=== PATIENT | female | born 1960 | race Caucasian/White ===

== ENCOUNTER 2022-04-13 13:00 | Outpatient (RCR) | payer MEDICARE, OTHER, SELFPAY | END 2022-04-13 13:05 | disposition home or self-care (01) | LOC: PT 13:00 | PROVIDERS: Visit Provider Family Medicine | DX: I89.0 Lymphedema, not elsewhere classified (principal) | CPT/HCPCS: 97110; 97140; 97162; 97164; 97760 ==

== ENCOUNTER → 2022-05-23 13:57 | Outpatient (POV) | payer MEDICARE, OTHER, SELFPAY ==
[2022-05-23 14:39] VITALS: BP 139/62; PULSE 77; RESP 18; TEMP 37.1; O2SAT 97; BMI 31.0
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
== END ==
PROVIDERS: PCP Family Medicine; Visit Provider Nurse Practitioner Family
DX: M25.511 Pain in right shoulder (principal); M25.562 Pain in left knee; G89.29 Other chronic pain
CPT/HCPCS: 99202; G0463

== ENCOUNTER → 2022-05-30 15:00 | Outpatient (POV) | payer MEDICARE, OTHER, SELFPAY ==
[2022-05-30 15:21] VITALS: BP 131/65; PULSE 90; RESP 20; TEMP 36.8; O2SAT 96; BMI 30.1
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
== END | disposition home or self-care (01) ==
PROVIDERS: PCP Family Medicine; Visit Provider Nurse Practitioner Family
DX: M25.562 Pain in left knee (principal); M25.511 Pain in right shoulder; G89.29 Other chronic pain
CPT/HCPCS: 99212; G0463

== ENCOUNTER 2022-07-14 14:35 | Outpatient (RCR) | payer MEDICARE, OTHER, SELFPAY | END 2022-07-14 14:40 | disposition home or self-care (01) | LOC: OT 14:35 | PROVIDERS: PCP Family Medicine; Visit Provider Psychiatry & Neurology Neurology | DX: G56.32 Lesion of radial nerve, left upper limb (principal) ==

== ENCOUNTER 2022-11-23 14:00 | Outpatient (RCR) | payer MEDICARE, OTHER, SELFPAY | END 2022-11-23 14:05 | disposition home or self-care (01) | LOC: PT 14:00 | PROVIDERS: Visit Provider Family Medicine | DX: I89.0 Lymphedema, not elsewhere classified (principal) | CPT/HCPCS: 97140; 97162; 97164; 97760 ==

== ENCOUNTER 2022-12-07 15:00 | Outpatient (RCR) | payer MEDICARE, OTHER, SELFPAY | END 2022-12-07 15:05 | disposition home or self-care (01) | LOC: OT 15:00 | PROVIDERS: PCP Family Medicine; Visit Provider Nurse Practitioner | DX: M25.511 Pain in right shoulder (principal) | CPT/HCPCS: 97010; 97014; 97110; 97140; 97164; 97166; 97530; 97535; G0283 ==

== ENCOUNTER 2022-12-13 13:00 | Outpatient (RCR) | payer MEDICARE, OTHER, SELFPAY | END 2022-12-13 13:05 | disposition home or self-care (01) | LOC: PT 13:00 | PROVIDERS: PCP Family Medicine | DX: S82.142S Displaced bicondylar fracture of left tibia, sequela (principal) | CPT/HCPCS: 97110; 97116; 97163; 97164; 97530 ==

== ENCOUNTER 2023-04-26 10:00 | Outpatient (RCR) | payer MEDICARE, OTHER, SELFPAY | END 2023-04-26 10:05 | disposition home or self-care (01) | LOC: PT 10:00 | PROVIDERS: PCP Family Medicine; Visit Provider Orthopaedic Surgery Orthopaedic Trauma | DX: M25.572 Pain in left ankle and joints of left foot (principal) | CPT/HCPCS: 97010; 97014; 97110; 97116; 97163; 97164; 97530; G0283 ==

== ENCOUNTER 2023-04-26 11:00 | Outpatient (RCR) | payer MEDICARE, OTHER, SELFPAY | END 2023-04-26 12:00 | disposition home or self-care (01) | LOC: PT 11:00 | PROVIDERS: PCP Family Medicine; Visit Provider Family Medicine | DX: R60.0 Localized edema (principal); S89.202A Unspecified physeal fracture of upper end of left fibula, initial encounter for closed fracture; S82.142A Displaced bicondylar fracture of left tibia, initial encounter for closed fracture | CPT/HCPCS: 97140; 97163; 97164; 97760 ==

== ENCOUNTER 2023-09-24 15:42 | Observation (INO) | payer MEDICARE, OTHER, SELFPAY ==
[2023-09-24 15:45] VITALS: BP 138/67; PULSE 103; RESP 20; TEMP 37.1; O2SAT 99; BMI 31.8
--- NOTE | 2023-09-24 16:03 | PC.NURSE ---
Dr. Cornejo at [facility] for pt eval
--- NOTE | 2023-09-24 16:18 | CT_ITS ---
PROCEDURE INFORMATION: Exam: CT Pelvis Without Contrast; Skeletal Exam date and time: 09/24/2023 5:55 PM Age: 62 years old Clinical indication: Injury or trauma; Fall; Blunt trauma (contusions or hematomas); Left; Hip; Additional info: L hip pain TECHNIQUE: Imaging protocol: Computed tomography of the pelvis without contrast. Exam focused on the skeleton. Radiation optimization: All CT scans at this facility use at least one of these dose optimization techniques: automated exposure control; mA and/or kV adjustment per patient size (includes targeted exams where dose is matched to clinical indication); or iterative reconstruction. COMPARISON: CR XR HIP LT 2-3V W/PELVIS 09/24/2023 5:06 PM FINDINGS: Bones/joints: Possible nondisplaced avulsion fracture of the lateral margin of the posterior left acetabulum centered on axial image 64 series 3. No other acute pelvic fracture identified. Severe soft tissue edema of the partially included upper thighs werj-mcdemgw-cfdv-right in the body wall structures of the pelvis compatible with anasarca. Soft tissues: See Bones/joints finding. IMPRESSION: 1. Avulsion fracture posterior left acetabulum of uncertain age. 2. Anasarca.
--- NOTE | 2023-09-24 16:18 | CT_ITS ---
PROCEDURE INFORMATION: Exam: CTA Abdomen and Pelvis With Contrast Exam date and time: 09/24/2023 5:59 PM Age: 62 years old Clinical indication: Injury or trauma; Fall; Blunt trauma; Pelvic area; Left; Additional info: Fall, L flank, L hip, periumbilical bruise TECHNIQUE: Imaging protocol: Computed tomographic angiography of the abdomen and pelvis with contrast. Exam focused on the arteries. 3D rendering (Not supervised by radiologist): MIP and/or 3D reconstructed images were created by the technologist. Radiation optimization: All CT scans at this facility use at least one of these dose optimization techniques: automated exposure control; mA and/or kV adjustment per patient size (includes targeted exams where dose is matched to clinical indication); or iterative reconstruction. Contrast material: ISOVUE; Contrast volume: 100 ml; Contrast route: INTRAVENOUS (IV); COMPARISON: CT BONY PELVIS 09/24/2023 5:55 PM FINDINGS: Diaphragm: Elevation of the right hemidiaphragm noted. Associated compressive atelectasis of the posterior right lower lobe in the right middle lobe. Lung henry otherwise clear. Aorta: Emrx-cb-zstvgqyn atherosclerotic changes of the aorta without aneurysm or significant narrowing. Celiac trunk and mesenteric arteries: No occlusion or significant stenosis. Renal arteries: Potential xwkvziex-aw-adqyeo atherosclerotic narrowing of the origin of the right renal artery. No occlusion or significant stenosis of the left renal artery. Right iliac arteries: No occlusion or significant stenosis. Left iliac arteries: No occlusion or significant stenosis. Veins: Recanalized umbilical vein. Mild upper abdomen varices. Liver: Nodular contour of the liver suggesting cirrhosis. Liver otherwise unremarkable. Gallbladder and bile ducts: Small stones in the gallbladder. Gallbladder and bile ducts are otherwise unremarkable Pancreas: Calcifications noted in the posterior aspect of the pancreatic head suggesting chronic pancreatitis. Spleen: Splenomegaly measuring 16 cm. Spleen otherwise unremarkable. Adrenal glands: Unremarkable. No mass. Kidneys and ureters: Nonobstructing 7 mm stone inferior right kidney and 3 mm nonobstructing mid left kidney stone. Kidneys and ureters otherwise unremarkable with no obstructing stones or uropathy. Stomach and bowel: Diffuse moderate to moderately severe colonic wall thickening extending from the cecum through the distal sigmoid. Mildly dilated air and fluid distended upper abdomen proximal small bowel loops measuring up to 3.8 cm in caliber. GI tract structures otherwise unremarkable with no evident wall thickening allowing for incomplete distention. A moderate size umbilical region hernia measuring 6 cm that contains free fluid and a nondilated loop of small bowel without obstruction. Appendix: No evidence of appendicitis. Intraperitoneal space: Moderate amounts of low-density free fluid in the abdomen and pelvis. Lymph nodes: Unremarkable. No enlarged lymph nodes. Urinary bladder: Unremarkable. No mass. Reproductive: Unremarkable as visualized. Bones/joints: Old-appearing mild superior endplate compression fracture L2 and pvji-xt-kdozcqgy central superior endplate compression fracture of L3. Vertebral body heights are otherwise intact. Levoscoliosis of the thoracolumbar spine and dextroscoliosis of the lumbar spine. Possible essentially nondisplaced fracture of the tip of the right L3 transverse process. Nondisplaced avulsion fracture of the lateral aspect of the posterior left acetabulum. No other acute fracture identified. Soft tissues: Diffuse severe body wall edema and associated moderate intra-abdominal fat tissue edema compatible with anasarca. IMPRESSION: 1. Avulsion fracture posterior left acetabulum. Possible nondisplaced fracture of the right L3 transverse process. 2. Cirrhosis. Associated recanalized umbilical vein and upper abdomen varices and splenomegaly compatible with portal venous hypertension. 3. Severe anasarca changes. 4. Moderate free fluid. 5. Diffuse colonic wall thickening noted that may be due to portal colopathy but can not exclude colitis in the proper clinical setting. 6. Associated mildly dilated proximal small bowel loops may be due to ileus. 7. Moderate size umbilical hernia containing a loop of small bowel and ascites. 8. Additional nonemergent findings as above.
--- NOTE | 2023-09-24 16:18 | XR_ITS ---
PROCEDURE INFORMATION: Exam: XR Left Hip Exam date and time: 09/24/2023 5:06 PM Age: 62 years old Clinical indication: Injury or trauma; Fall; Blunt trauma (contusions or hematomas); Left; Hip TECHNIQUE: Imaging protocol: Radiologic exam of the left hip. Views: 2 or 3 views hip with pelvis when performed. COMPARISON: CR XR FEMUR LT 2V 09/24/2023 5:06 PM FINDINGS: Bones/joints: Unremarkable. No acute fracture. Soft tissues: Unremarkable. IMPRESSION: No acute findings.
--- NOTE | 2023-09-24 16:18 | XR_ITS ---
PROCEDURE INFORMATION: Exam: XR Left Femur Exam date and time: 09/24/2023 5:06 PM Age: 62 years old Clinical indication: Injury or trauma; Fall; Blunt trauma; Thigh or upper leg; Left TECHNIQUE: Imaging protocol: Radiologic exam of the left femur. Views: 2 views. COMPARISON: CR XR HIP LT 2-3V W/PELVIS 09/24/2023 5:06 PM FINDINGS: Bones/joints: Unremarkable. No acute fracture. Soft tissues: Unremarkable. IMPRESSION: No acute findings.
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
[2023-09-24] MEDS: ACETAMINOPHEN 1,000MG/100ML VIAL 1000 MG IV (16:44)
[2023-09-24] MEDS: OXYCODONE 5MG IMMEDIATE RELEASE TABLET 5 MG PO (16:44)
[2023-09-24] MEDS: NYSTATIN TOPICAL POWDER 30GM TP (16:45)
[2023-09-24 16:48] LABS: Coronavirus 19, PCR Not Detected (NotDetected); Influenza A, PCR Not Detected (NotDetected); Influenza B, PCR Not Detected (NotDetected)
[2023-09-24 16:50] LABS: Basophils # 0.1 K/mm3 (0-0.2); Basophils % 0.5 % (0.1-2.0); Eosinophils # 0.2 K/mm3 (0.0-0.4); Eosinophils % 2.4 % (0.1-12.0); Hematocrit 37.2 % (37.0-47.0); Hemoglobin 12.4 g/dL (12.2-16.2); Lymphocytes # 1.6 K/mm3 (0.7-4.5); Lymphocytes % 16.8 % (10-50); Mean Corpuscular HGB Conc 33.3 g/dL (31.8-35.4); Mean Corpuscular Hemoglobin 34.4 pg (27.0-31.2); Mean Corpuscular Volume 103.2 fl (81-99); Monocytes # 0.4 K/mm3 (0.1-1.0); Neutrophils # 7.2 K/mm3 (1.8-7.8); Neutrophils % 76.2 % (37.0-80.0); Platelet Count 151 K/mm3 (142-424); Red Blood Count 3.61 M/mm3 (4.20-5.40); Red Cell Distribution Width 16.7 % (11.5-17.5); White Blood Count 9.5 K/mm3 (4.8-10.8)
[2023-09-24 16:53] LABS: Chloride 106 mmol/L (98-107); Sodium 137 mmol/L (136-145)
[2023-09-24 16:54] LABS: Potassium 3.4 mmoL/L (3.5-5.1)
[2023-09-24 16:56] LABS: Alanine Aminotransferase 59 U/L (12-78); Alkaline Phosphatase 235 U/L (38-126); Aspartate Amino Transferase 98 U/L (14-36); Bilirubin,Total 2.8 mg/dl (0.2-1.3); Blood Urea Nitrogen 5 mg/dl (7-17); Creatinine Clearance Estimated 74 mL/min (50-200); Estimated Glomerular Filt Rate 125 ml/min (>60); GFR (African American) 151 ML/MIN (>60)
[2023-09-24 16:57] LABS: Albumin Level 3.2 g/dl (3.5-5.0); Albumin/Globulin Ratio 1.1 (1.1-1.8); Anion Gap 5.4 mEq/L (5-15); Calcium 7.8 mg/dl (8.4-10.2); Carbon Dioxide 29 mmol/L (22.0-30.0); Glucose 122 mg/dl (74-100); Total Protein,Serum 6.2 g/dl (6.3-8.2)
[2023-09-24 17:09] VITALS: BP 138/67; PULSE 103; O2SAT 99
--- NOTE | 2023-09-24 17:11 | PC.NURSE ---
RAD is at bedside.
[2023-09-24] MEDS: 0.9 % SODIUM CHLORIDE 50 ML VIAL IV (17:55)
[2023-09-24] MEDS: IOPAMIDOL-370 (76%);100ML BOTTLE 100 ML IV (17:56)
[2023-09-24 18:30] VITALS: BP 140/71; PULSE 106; O2SAT 96
--- NOTE | 2023-09-24 19:16 | PC.NURSE ---
ED doctor spoke with Dr. Richardson
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
[2023-09-24 19:56] VITALS: BP 139/77; PULSE 105; RESP 16; TEMP 36.6; O2SAT 96
[2023-09-24 20:30] VITALS: BP 129/71; PULSE 107; RESP 18; TEMP 36.8; O2SAT 95; BMI 39.7
[2023-09-25] MEDS: ROPINIROLE 1MG TABLET 0.5 MG PO ×3 (00:06→13:48)
[2023-09-25] MEDS: ENOXAPARIN 40MG/0.4ML SYRINGE 40 MG SQ (00:07)
[2023-09-25] MEDS: MORPHINE 2MG/ML SYRINGE 2 MG IV ×2 (00:07→08:26)
[2023-09-25] MEDS: NYSTATIN TOPICAL POWDER 30GM TP ×3 (00:08→13:48)
[2023-09-25] MEDS: 0.9 % SODIUM CHLORIDE 1000ML 1,000 ML 50 ML IV (00:08)
[2023-09-25 04:00] VITALS: BP 115/63; PULSE 81; RESP 18; TEMP 36.9; O2SAT 95; BMI 40.2
[2023-09-25] MEDS: CYCLOBENZAPRINE 10MG TABLET 10 MG PO (05:14)
[2023-09-25 07:22] LABS: Basophils % 0.3 % (0.1-2.0); Eosinophils # 0.2 K/mm3 (0.0-0.4); Eosinophils % 3.8 % (0.1-12.0); Hematocrit 31.5 % (37.0-47.0); Lymphocytes # 1.6 K/mm3 (0.7-4.5); Lymphocytes % 24.5 % (10-50); Mean Corpuscular HGB Conc 32.6 g/dL (31.8-35.4); Mean Corpuscular Hemoglobin 34.1 pg (27.0-31.2); Mean Corpuscular Volume 104.4 fl (81-99); Mean Platelet Volume 8.4 fl (7.4-10.4); Monocytes # 0.4 K/mm3 (0.1-1.0); Monocytes % 5.9 % (1.7-9.3); Neutrophils # 4.2 K/mm3 (1.8-7.8); Neutrophils % 65.5 % (37.0-80.0); Platelet Count 129 K/mm3 (142-424); Red Blood Count 3.02 M/mm3 (4.20-5.40); Red Cell Distribution Width 17.1 % (11.5-17.5); White Blood Count 6.5 K/mm3 (4.8-10.8)
--- NOTE | 2023-09-25 07:34 | PC.NURSE ---
unna boots applied to left leg. pt shira well
[2023-09-25 07:38] LABS: Alanine Aminotransferase 44 U/L (12-78); Albumin Level 2.4 g/dl (3.5-5.0); Albumin/Globulin Ratio 0.9 (1.1-1.8); Alkaline Phosphatase 172 U/L (38-126); Anion Gap 4.4 mEq/L (5-15); Aspartate Amino Transferase 76 U/L (14-36); Bilirubin,Total 2.1 mg/dl (0.2-1.3); Blood Urea Nitrogen 5 mg/dl (7-17); Carbon Dioxide 28 mmol/L (22.0-30.0); Chloride 108 mmol/L (98-107); Creatinine Clearance Estimated 46 mL/min (50-200); Estimated Glomerular Filt Rate 125 ml/min (>60); GFR (African American) 151 ML/MIN (>60); Globulin 2.6 g/dL (1.3-3.2); Glucose 90 mg/dl (74-100); Magnesium 1.7 mg/dl (1.6-2.3); Potassium 3.4 mmoL/L (3.5-5.1); Sodium 137 mmol/L (136-145)
[2023-09-25 08:00] VITALS: BP 131/67; PULSE 100; RESP 20; TEMP 36.4; O2SAT 92
[2023-09-25 08:06] LABS: Hemoglobin 10.3 g/dL (12.2-16.2)
--- NOTE | 2023-09-25 08:14 | HMH.PHAINT1 ---
Pharmacy Intervention Comments: Home med list verified with patient at bedside, Rx bottles in room, and external pharmacy list.
[2023-09-25] MEDS: POTASSIUM CHLORIDE 20MEQ TAB 20 MEQ PO (08:24)
[2023-09-25] MEDS: PANTOPRAZOLE 40MG TABLET 40 MG PO (08:24)
[2023-09-25] MEDS: FERROUS SULFATE 325MG TABLET 325 MG PO (08:25)
[2023-09-25] MEDS: LACTOBACILLUS PROBIOTIC COMB CAPSULE 1 CAP PO (08:25)
[2023-09-25] MEDS: SPIRONOLACTONE 25MG TABLET 25 MG PO (08:25)
[2023-09-25] MEDS: VENLAFAXINE XR 75MG CAPSULE 75 MG PO (08:25)
[2023-09-25] MEDS: MAGNESIUM SULFATE IN WATER 2 GM/50 ML PIGGYBACK IV (08:26)
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
--- NOTE | 2023-09-25 10:14 | SW/DCPLANNER ---
Addendum entered by Jeny West 09/25/23 11:56: I was called to patient's room at her request to discuss transportation home from hospital today. Patient stated that her family may not be able to pick her up today. I explained to patient that we could call for ambulance transportation however she would be billed for this transportation. I also discussed w/ patient the possible need for home health vs outpatient due to transportation issues. Patient stated that she would speak w/ her family again about transporting her home today. Patient also stated that she would like to continue w/ plan of outpatient PT services. I explained to patient if decides to pursue home health this can be set up from home and I can look into an agency that can do PT/OT/Lymphodema care. I will continue to follow up w/ patient. Per MD patient is medically stable for discharge today. Original Note: I spoke w/ this patient regarding plans once medically stable for discharge. PT/OT evaluated patient and recommended returning home w/ home health OR outpatient PT services. Patient expressed that she would prefer to discharge home and return to [facility] for outpatient PT services. Patient stated that she has a PT evaluation at [facility] scheduled on 09/28. Patient also stated that she has all appropriate DME at home. Per MD patient could potentially discharge home later today or tomorrow.
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
--- NOTE | 2023-09-27 13:23 | CARE MANAGER ---
Called and spoke with patient regarding recent discharge. Patient is thinking that she may want HH services now, but also stated that she thought she would try outpatient PT tomorrow and see how it goes. I advised her that I could transfer her to our social work lecturer, however, she stated that she has her number and will call her if needed.
--- NOTE | 2023-09-28 13:56 | SW/DCPLANNER ---
Addendum entered by Jeny West 09/29/23 13:27: [facility] Home Health services will begin Monday 10/02 for this patient. [facility] stated that they will call and update this patient. Addendum entered by Jeny West 09/29/23 12:55: Meghna w/ [facility] stated that she is not able to accept this patient. Patient information/order has been faxed to [facility]. Original Note: I was called down to outpatient rehab to discuss home health options w/ this patient. Patient stated that it is too difficult for her to continue to return to outpatient PT setting and would prefer to be set up w/ [facility]. Patient information/order will be faxed to [facility]. I will follow up w/ [facility] once information is reviewed.
== END 2023-09-25 14:25 | disposition home or self-care (01) ==
LOC: ER 19:37 → 2ND 19:54
PROVIDERS: Nurse Practitioner Family; Admitting Provider Internal Medicine Adolescent Medicine; Emergency Provider Emergency Medicine; PCP Family Medicine; Visit Provider Internal Medicine Adolescent Medicine
DX: S32.402A Unspecified fracture of left acetabulum, initial encounter for closed fracture (principal); S32.009A Unspecified fracture of unspecified lumbar vertebra, initial encounter for closed fracture; I89.0 Lymphedema, not elsewhere classified; K74.60 Unspecified cirrhosis of liver; R18.8 Other ascites; I10 Essential (primary) hypertension; Z99.3 Dependence on wheelchair; E66.9 Obesity, unspecified; F41.9 Anxiety disorder, unspecified; E03.9 Hypothyroidism, unspecified; Z68.41 Body mass index [BMI] 40.0-44.9, adult; R29.6 Repeated falls
CPT/HCPCS: 36415; 72192; 73502; 73552; 74174; 80053; 83735; 85025; 87636; 97163; 97165; 99285; G0378; J0131; J3475; Q9967

== ENCOUNTER 2023-09-28 11:00 | Outpatient (RCR) | payer MEDICARE, OTHER, SELFPAY | END 2023-09-28 12:00 | disposition home or self-care (01) | LOC: PT 11:00 | PROVIDERS: PCP Family Medicine; Visit Provider Family Medicine | DX: I89.0 Lymphedema, not elsewhere classified (principal) | CPT/HCPCS: 97140; 97163 ==

== ENCOUNTER 2023-09-28 12:49 | Outpatient (RCR) | payer MEDICARE, OTHER, SELFPAY ==
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
== END 2023-09-28 13:49 | disposition home or self-care (01) ==
LOC: PT 12:49
PROVIDERS: PCP Family Medicine; Visit Provider Internal Medicine Adolescent Medicine
DX: M25.552 Pain in left hip (principal); S32.402A Unspecified fracture of left acetabulum, initial encounter for closed fracture
CPT/HCPCS: 97163

== ENCOUNTER 2023-10-05 12:01 | Observation (INO) | payer MEDICARE, OTHER, SELFPAY ==
[2023-10-05 12:02] VITALS: BP 116/59; PULSE 89; RESP 18; TEMP 36.6; O2SAT 97; BMI 35.4
--- NOTE | 2023-10-05 12:40 | CT_ITS ---
FINAL REPORT TECHNIQUE: Axial images were obtained of the lumbar spine by computed tomography. Coronal and sagittal reconstruction process performed. This study was performed with techniques to keep radiation doses as low as reasonably achievable (ALARA). Individualized dose reduction techniques using automated exposure control or adjustment of mA and/or kV according to the patient''s size were employed. CLINICAL HISTORY: fall, back pain COMPARISON: None FINDINGS: There is thoracolumbar scoliosis convex to the left measuring about 40 degrees. There is a 50% compression deformity of L2. There is a 20% compression deformity of L1. There is moderate anterior osteophyte formation at T11-12, T12-L1, and L1-2. On the axial images, there is no evidence of acute fracture. The facets are properly aligned. Neural foraminal compromise is noted bilaterally at L1-2. IMPRESSION: No acute fracture. Degenerative changes as above. Reviewed, Interpreted and Dictated by Kishan Krishnamurthy MD Transcribed by Sofia Butts Authenticated and [facility]
--- NOTE | 2023-10-05 12:40 | CT_ITS ---
FINAL REPORT TECHNIQUE: Axial images were obtained of the thoracic spine by computed tomography. Coronal and sagittal reconstruction process performed. This study was performed with techniques to keep radiation doses as low as reasonably achievable (ALARA). Individualized dose reduction techniques using automated exposure control or adjustment of mA and/or kV according to the patient's size were employed. CLINICAL HISTORY: fall, back pain COMPARISON: None FINDINGS: There is moderate anterior osteophyte formation in the midthoracic spine. There is accentuation of the thoracic kyphosis. Thoracic scoliosis is noted convex to the right measuring about 30 degrees. There is no obvious fracture. Facets are properly aligned. IMPRESSION: No acute fracture. Reviewed, Interpreted and Dictated by Kishan Krishnamurthy MD Transcribed by Sofia Butts Authenticated and [facility]
--- NOTE | 2023-10-05 12:40 | CT_ITS ---
FINAL REPORT TECHNIQUE: Axial images were obtained through the chest without contrast. CLINICAL HISTORY: fall on L side, scap and rib pain COMPARISON: None FINDINGS: There is streak artifact from right shoulder prosthesis. Is noted. There is no mediastinal mass or adenopathy. The heart size is normal. There is no pericardial or pleural effusion. There are mild patchy ground-glass opacities in both lobes and dense consolidations at the right base. IMPRESSION: Consolidation right middle lobe and right lower lobe. Mild patchy ground-glass opacities could be due to acute pneumonitis. Reviewed, Interpreted and Dictated by Kishan Krishnamurthy MD Transcribed by Sofia Butts Authenticated and [facility]
--- NOTE | 2023-10-05 12:40 | CT_ITS ---
FINAL REPORT TECHNIQUE: Axial images through the pelvis were performed by computed tomography. Sagittal and coronal reconstruction images were performed. This study was performed with techniques to keep radiation doses as low as reasonably achievable (ALARA). Individualized dose reduction techniques using automated exposure control or adjustment of mA and/or kV according to the patient's size were employed. CLINICAL HISTORY: fall, history of L hip fx, now with RIGHT hip pain COMPARISON: 09/24/2023 FINDINGS: There is [id number] hip joint space narrowing. Femoral heads have normal smooth contour. There is no evidence of hip fracture. Bowel is noted within midline anterior pelvic wall hernia. IMPRESSION: No acute fracture. Midline anterior pelvic wall hernia containing bowel. Reviewed, Interpreted and Dictated by Kishan Krishnamurthy MD Transcribed by Sofia Butts Authenticated and [facility]
--- NOTE | 2023-10-05 12:42 | CT_ITS ---
FINAL REPORT TECHNIQUE: Axial images were obtained of the cervical spine by computed tomography. Coronal and sagittal reconstruction process performed. This study was performed with techniques to keep radiation doses as low as reasonably achievable (ALARA). Individualized dose reduction techniques using automated exposure control or adjustment of mA and/or kV according to the patient''s size were employed. CLINICAL HISTORY: fall, upper back pain COMPARISON: None FINDINGS: There is grade 1-2 spondylolisthesis of C4 on C5. There is moderate disc space narrowing at C4-5, C5-6, and C6-7. There is no evidence of acute fracture. On parasagittal images, there is moderate bilateral neural foraminal narrowing at C4-5 and C5-6. The facets are properly aligned. IMPRESSION: No acute fracture. Reviewed, Interpreted and Dictated by Kishan Krishnamurthy MD Transcribed by Sofia Butts Authenticated and . [facility]
--- NOTE | 2023-10-05 13:08 | HMH.EDGENADL ---
Discharge Plan Disposition Patient Disposition: Admitted Chief Complaint: PAIN Prescriptions Prescriptions: No Action cyclobenzaprine 10 mg tablet 10 mg PO TID PRN (Reason: Musle spasms) venlafaxine 75 mg capsule,extended release 24hr 75 mg PO AM spironolactone 25 mg tablet 25 mg PO AM ferrous sulfate [FeroSul] 325 mg (65 mg iron) tablet 325 mg PO PM Patient Comments: TAKE 1 TABLET BY MOUTH EVERY DAY AT DINNER esomeprazole magnesium 40 mg capsule,delayed release(DR/EC) 40 mg PO DAILY levothyroxine [Synthroid] 125 mcg Tablet 125 mcg PO DAILY ascorbic acid (vitamin C) 500 mg Tablet 500 mg PO DAILY magnesium 250 mg Tablet 250 mg PO DAILY calcium carbonate-vitamin D3 [Calcium 600 + D(3)] 600 mg-10 mcg (400 unit) Tablet 1 tab PO DAILY cholecalciferol (vitamin D3) [Vitamin D3] 125 mcg (5,000 unit) Tablet 250 mcg PO DAILY nystatin 100,000 unit/gram Powder 1 applic topical QID 10 Days Qty: 30 0RF furosemide 40 mg tablet 40 mg PO DAILY 30 Days Qty: 30 0RF hydrocodone-acetaminophen 5-325 mg tablet 1 tab PO Q6H PRN (Reason: pain) 3 Days Qty: 12 0RF diphenoxylate-atropine 2.5-0.025 mg Tablet 2 tab PO QID PRN (Reason: Diarrhea ) Patient Comments: Pt only taking due to diarrhea caused by Keflex aripiprazole 2 mg Tablet 2 mg PO HS ropinirole 0.5 mg Tablet 0.5 mg PO TID PRN (Reason: Restless Legs) venlafaxine 150 mg Capsule,Extended Release 24hr 150 mg PO HS Referrals Follow up/Referrals: Provider,Referral, MD [Primary Care Provider] - See instructions Clinical Impressions Clinical Impression: Generalized weakness, UTI (urinary tract infection), Acute hypokalemia Discharge ED Provider: Heath Baez General Adult HPI General Chief complaint: PAIN Stated complaint: fall Time Seen by Provider: 10/05/23 12:04 Mode of Arrival: EMS Source of Information: Patient and EMS Limitations: No Limitations Description of Symptoms (Recalled from ER Triage Doc. by RN): Patient states she had a fall yesterday and now has left shoulder pain. Patient reports broken left hip from prior fall that is non surgical. History of Present Illness HPI narrative: 62-year-old female with history of formation causing numerous falls, lymphedema, numerous spinal fractures, recent hip fracture of the acetabulum that was deemed nonsurgical presenting with fall. Patient states that yesterday, 10/04, she was transferring to her wheelchair and fell. She landed on a hardwood floor that has a concrete slab underneath. Had significant pain and crunching sensation in her right hip/buttock posteriorly. No neurovascular deficits. She has associated midline lumbar spinal and thoracic spinal back pain, but has numerous spine fractures from previous falls. Denies hitting her head or loss of consciousness. Related Data Home Medications Medication Instructions Recorded Confirmed aripiprazole 2 mg tablet 2 mg PO HS 05/23/22 09/24/23 diphenoxylate-atropine 2.5 2 tab PO QID PRN Diarrhea 05/23/22 09/24/23 mg-0.025 mg tablet ropinirole 0.5 mg tablet 0.5 mg PO TID PRN Restless Legs 05/23/22 09/25/23 venlafaxine 150 mg 150 mg PO HS 05/23/22 09/25/23 capsule,extended release 24 hr ascorbic acid (vitamin C) 500 mg 500 mg PO DAILY 09/24/23 09/24/23 tablet calcium carbonate 600 mg-vitamin 1 tab PO DAILY 09/24/23 09/25/23 D3 10 mcg (400 unit) tablet (Calcium 600 + D(3)) cholecalciferol (vitamin D3) 125 250 mcg PO DAILY 09/24/23 09/25/23 mcg (5,000 unit) tablet (Vitamin D3) cyclobenzaprine 10 mg tablet 10 mg PO TID PRN Musle spasms 09/24/23 09/24/23 esomeprazole magnesium 40 mg 40 mg PO DAILY 09/24/23 09/24/23 capsule,delayed release ferrous sulfate 325 mg (65 mg 325 mg PO PM 09/24/23 09/25/23 iron) tablet (FeroSul) levothyroxine 125 mcg tablet 125 mcg PO DAILY 09/24/23 09/24/23 (Synthroid) magnesium 250 mg tablet 250 mg PO DAILY 09/24/23 09/24/23 spironolactone 25 mg tablet 25 mg PO AM 09/24/23 09/25/23 venlafaxine 75 mg capsule,extended 75 mg PO AM 09/24/23 09/24/23 release 24 hr Previous Rx's Medication Instructions Recorded furosemide 40 mg tablet 40 mg PO DAILY 30 days #30 tabs 09/25/23 hydrocodone 5 mg-acetaminophen 325 1 tab PO Q6H PRN pain 3 days #12 09/25/23 mg tablet tabs nystatin 100,000 unit/gram topical 1 applic topical QID 10 days #30 09/25/23 powder grams Allergies Allergy/AdvReac Type Severity Reaction Status Date / Time tizanidine Allergy Mild Verified 09/24/23 23:17 [facility] Disclaimer: The information contained in this section may have been updated after the patient was seen, as this information can be updated by other users. Medical History Anemia Anxiety Cerebellar disorder Chronic diarrhea Chronic pain Depression HTN (hypertension) Hypothyroidism Lymphedema Peptic ulcer Surgical History H/O laminectomy H/O left knee surgery H/O shoulder surgery Social History Smoking Status: Never smoker alcohol intake: never current occupational status: other Travel in the last 8 weeks: None ROS Obtained: Yes All systems reviewed & no additional complaints except as documented Physical Exam General General appearance: alert and in no apparent distress Head Head exam: atraumatic and normocephalic Eye Eye exam: Present normal appearance, PERRL and EOMI ENT ENT exam: Present mucous membranes moist Neck Neck exam: Present normal inspection, full ROM and trachea midline Respiratory Respiratory exam: Present normal lung sounds bilaterally; Absent respiratory distress, wheezes, stridor, accessory muscle use or prolonged expiratory phase Cardiovascular Cardiovascular exam: Present regular rate and normal rhythm Abdominal Exam Abdominal exam: Present soft; Absent distention, tenderness, guarding, rebound or rigidity Extremities Exam Extremities exam: Present other (Tenderness right and left hips. No evidence of crepitus. Patient does have bilateral lower extremity swelling, left greater than right. Nontender, nontender); Absent edema Back Exam Back exam: Present paraspinal tenderness (Primary lower left scapula) and vertebral tenderness Neurological Exam Neurological exam: Present alert, oriented X3, CN II-XII intact and normal gait; Absent motor sensory deficit Skin Skin exam: Present warm and dry; Absent diaphoresis or erythema Medical Decision Making Medical Records Medical records reviewed: Yes I reviewed the patient's medical records. Get Inquiry Pt receiving controlled substance: No Get was queried for this patient: No Vital Signs: 10/05/23 12:02 10/05/23 14:00 Temperature 97.8 F Temperature Source Oral Pulse Rate 94 H Pulse Rate [Right] 89 Respiratory Rate 18 Blood Pressure 130/72 Blood Pressure [Right Arm] 116/59 L Blood Pressure Mean [Right Arm] 78 Blood Pressure Source [Right Arm] Automatic Cuff 02 Sat by Pulse Oximetry 97 97 Oxygen Delivery Method Room Air Room Air Lab Data Lab Results 10/05/23 13:35: Urine Color Yellow, Urine Appearance Clear, Urine pH 7.0, Ur Specific [place] 1.015, Urine Protein Negative, Urine Glucose (UA) Negative, Urine Ketones Negative, Urine Blood 1+, Urine Nitrate Negative, Urine Bilirubin Negative, Urine Urobilinogen 4.0, Ur Leukocyte Esterase 2+ A, Urine RBC 3-5, Urine WBC Occasional, Ur Squamous Epith Cells 3-5, Urine Bacteria Trace 10/05/23 14:33: WBC 7.1, RBC 3.01 L, Hgb 10.7 L, Hct 31.7 L, MCV 105.3 H, MCH 35.7 H, MCHC 33.9, RDW 16.9, Plt Count 120 L, MPV 8.2, Neut % (Auto) 73.1, Lymph % (Auto) 15.5, Roberts % (Auto) 6.8, Eos % (Auto) 3.9, Baso % (Auto) 0.6, Neut # (Auto) 5.2, Lymph # (Auto) 1.1, Roberts # (Auto) 0.5, Eos # (Auto) 0.3, Baso # (Auto) 0.0, Sodium 137, Potassium 2.8 L*, Chloride 98, Carbon Dioxide 33 H, Anion Gap 8.8, BUN 10, Creatinine 0.50 L, Estimated Creat Clear 82, Estimated GFR 125, Est GFR ( Amer) 151, Glucose 101 H, Calcium 8.0 L, Total Bilirubin 3.5 H, AST 113 H, ALT 81 H, Alkaline Phosphatase 188 H, Total Protein 6.4 D, Albumin 3.2 L, Globulin 3.2, Albumin/Globulin Ratio 1.0 L 10/05/23 14:33 10/05/23 14:33 Orders (Tests/Meds): ED MEDICATIONS Generic Name Dose Route Start Last Admin Trade Name Freq PRN Reason Stop Dose Admin Hydrocodone Bitart/Acetaminophen 2 tab 10/05/23 15:29 Hydrocodone/Apap 5/325 Mg Tablet PO 11/04/23 15:28 Q6HP PRN Moderate to Severe Pain (4-10) Potassium Chloride/Water 100 mls @ 100 mls/hr 10/05/23 15:20 Potassium Chloride 10meq/100ml Ivpb IV 10/05/23 17:19 Q1H MAINE Ceftriaxone Sodium 1 gm/ 50 mls @ 100 mls/hr 10/06/23 15:00 Sodium Chloride IV 10/16/23 14:59 Q24H MAINE Potassium Chloride 40 meq 10/05/23 21:00 Potassium Chloride 20meq Tab PO 11/04/23 20:59 BID MAINE Discontinued Medications Generic Name Dose Route Start Last Admin Trade Name Freq PRN Reason Stop Dose Admin Acetaminophen 1,000 mg 10/05/23 13:08 10/05/23 13:25 Acetaminophen 1,000mg/100ml Vial IV 10/05/23 13:09 1,000 mg ONCE ONE Administration Ceftriaxone Sodium 1 gm/ 50 mls @ 100 mls/hr 10/05/23 14:52 Sodium Chloride IV 10/05/23 15:21 ONCE ONE Ketorolac Tromethamine 15 mg 10/05/23 13:08 10/05/23 13:25 Ketorolac 30mg/Ml Vial IV 10/05/23 13:09 15 mg ONCE ONE Administration Potassium Chloride 60 meq 10/05/23 15:20 Potassium Chloride 20meq Tab PO 10/05/23 15:21 ONCE ONE ORDERS Category Date Time Status CT abdomen pelvis wo con Stat Cat Scan 10/05/23 13:[address] bony pelvis Stat Cat Scan 10/05/23 12:[address] cervical spine wo con Stat Cat Scan 10/05/23 12:[address] chest wo con Stat Cat Scan 10/05/23 12:[address] lumbar spine wo con Stat Cat Scan 10/05/23 12:[address] thoracic spine wo con Stat Cat Scan 10/05/23 12:40 Completed CBC w/Auto Diff [Complete Blood Count Auto Diff] Stat Lab 10/05/23 14:33 Completed CMP [Comprehensive Metabolic Panel] Stat Lab 10/05/23 14:33 Completed Complete Blood Count Auto Diff AMLAB Lab 10/06/23 06:00 Ordered Comprehensive Metabolic Panel AMLAB Lab 10/06/23 06:00 Ordered Magnesium AMLAB Lab 10/06/23 06:00 Ordered Magnesium Stat Lab 10/05/23 14:33 Received UA [Urinalysis and Microscopic] Stat Lab 10/05/23 13:35 Completed Blood Culture Stat Micro 10/05/23 15:32 Ordered Urine Culture Stat Micro 10/05/23 13:35 Received Medical Decision Narrative: 62-year-old female with history of formation causing numerous falls, lymphedema, numerous spinal fractures, recent hip fracture of the acetabulum that was deemed nonsurgical presenting with fall. Patient states that yesterday, 10/04, she was transferring to her wheelchair and fell. She landed on a hardwood floor that has a concrete slab underneath. Had significant pain and crunching sensation in her right hip/buttock posteriorly. No neurovascular deficits. She has associated midline lumbar spinal and thoracic spinal back pain, but has numerous spine fractures from previous falls. Denies hitting her head or loss of consciousness. History was obtained via conversation with patient. On arrival, patient hemodynamically stable, alert, oriented x4, appropriate, GCS 15, moving all extremities spontaneously, pupils equal and reactive to light. Full physical exam performed and significant for well-appearing woman in no acute distress. Chronic health findings, but nothing outwardly acute. She is tender in her right hip without evidence of crepitus. Neurovascularly intact. Tenderness thoracolumbar spine, as well as left scapula. Cardiopulmonary exam within normal limits Differential includes fracture, sprain, strain, dislocation, pneumothorax, among others. Patient was given Toradol, acetaminophen for symptomatic management and correction of underlying abnormalities. Workup independently interpreted and significant for nonactionable CBC. Chemistry with significant hypokalemia, this was repleted p.o. and IV. Kidney function normal. CT imaging personally interpreted and no new fracture. Patient does have a small left-sided acetabular fracture, but no significant new abnormalities. See radiology read for full review of final results. Urinalysis concerning for UTI. Patient given ceftriaxone 1 g. Given patient presentation, workup, history, this most likely represents generalized weakness, hypokalemia, urinary tract infection, and frequent falls. Subject of assisted living was approached with patient, she was adamantly against changing her living situation. She currently lives at home alone and states that she has numerous support systems. Because patient high risk for clinical decompensation, deemed appropriate for inpatient admission. Results were relayed to patient who voiced understanding and patient was agreeable to inpatient admission and management. Patient was admitted to the hospital for further definitive management. Critical Care Critical Care Time Critical Care Time: No
--- NOTE | 2023-10-05 13:14 | CT_ITS ---
FINAL REPORT TECHNIQUE: Axial images through the abdomen and pelvis were performed without contrast. This study was performed with techniques to keep radiation doses as low as reasonably achievable, (ALARA). Individualized dose reduction techniques using automated exposure control or adjustment of mA and/or kV according to the patient's size were employed. CLINICAL HISTORY: fall, L spine pain COMPARISON: None FINDINGS: Abdomen: The liver has a nodular peripheral contour probably due to cirrhosis. There is a large amount of ascites. The gallbladder is present. The spleen is enlarged measuring 15 cm in craniocaudal dimension. There is a dense calcification in the head of the pancreas consistent with chronic pancreatitis. Multiple gallstones are noted in the dependent portion of the gallbladder. There are multiple bilateral nonobstructing kidney stones measuring up to 4 mm. There is hazy stranding throughout the mesentery and body wall. Pelvis: The urinary bladder is unremarkable. The appendix is not visualized. Is a hernia in the midline anterior pelvic wall containing nondistended loops of bowel. There is some loss of height of the L2 vertebra, probably chronic. IMPRESSION: Cirrhosis and splenomegaly. Gallstones. Chronic pancreatitis. Bilateral nonobstructing kidney stones. Anterior pelvic wall hernia. Reviewed, Interpreted and Dictated by Kishan Krishnamurthy MD Transcribed by Sofia Butts Authenticated and [facility]
[2023-10-05] MEDS: KETOROLAC 30MG/ML VIAL 15 MG IV (13:25)
[2023-10-05] MEDS: ACETAMINOPHEN 1,000MG/100ML VIAL 1000 MG IV (13:25)
[2023-10-05 13:39] LABS: Microscopic, Urine URINE MICROSCOPIC (MICROSCOPIC)
[2023-10-05 13:41] LABS: Appearance,Urine CLEAR (Clear); Bilirubin,Urine Negative (Negative); Blood, Urine 1+ (Negative); Color,Urine YELLOW (Yellow); Glucose,Urine (UA) Negative (Negative); Ketones,Urine Negative (Negative); Leukocyte Esterase,Urine 2+ (Negative); Nitrate,Urine Negative (Negative); Protein,Urine Negative (Negative); Specific Gravity, Urine 1.015 (1.005-1.030)
[2023-10-05 13:52] LABS: Bacteria,Urine Trace /lpf; WBC,Urine Occasional #/hpf (0-3)
[2023-10-05 14:00] VITALS: BP 130/72; PULSE 94; O2SAT 97
[2023-10-05 14:49] LABS: Basophils % 0.6 % (0.1-2.0); Chloride 98 mmol/L (98-107); Eosinophils # 0.3 K/mm3 (0.0-0.4); Eosinophils % 3.9 % (0.1-12.0); Hematocrit 31.7 % (37.0-47.0); Hemoglobin 10.7 g/dL (12.2-16.2); Lymphocytes # 1.1 K/mm3 (0.7-4.5); Lymphocytes % 15.5 % (10-50); Mean Corpuscular HGB Conc 33.9 g/dL (31.8-35.4); Mean Corpuscular Hemoglobin 35.7 pg (27.0-31.2); Mean Corpuscular Volume 105.3 fl (81-99); Mean Platelet Volume 8.2 fl (7.4-10.4); Monocytes # 0.5 K/mm3 (0.1-1.0); Monocytes % 6.8 % (1.7-9.3); Neutrophils # 5.2 K/mm3 (1.8-7.8); Neutrophils % 73.1 % (37.0-80.0); Platelet Count 120 K/mm3 (142-424); Red Blood Count 3.01 M/mm3 (4.20-5.40); Red Cell Distribution Width 16.9 % (11.5-17.5); Sodium 137 mmol/L (136-145); White Blood Count 7.1 K/mm3 (4.8-10.8)
[2023-10-05 14:51] LABS: Alanine Aminotransferase 81 U/L (12-78); Aspartate Amino Transferase 113 U/L (14-36); Blood Urea Nitrogen 10 mg/dl (7-17); Creatinine Clearance Estimated 82 mL/min (50-200); Estimated Glomerular Filt Rate 125 ml/min (>60); GFR (African American) 151 ML/MIN (>60)
[2023-10-05 14:52] LABS: Albumin Level 3.2 g/dl (3.5-5.0); Alkaline Phosphatase 188 U/L (38-126); Anion Gap 8.8 mEq/L (5-15); Bilirubin,Total 3.5 mg/dl (0.2-1.3); Carbon Dioxide 33 mmol/L (22.0-30.0); Globulin 3.2 g/dL (1.3-3.2); Glucose 101 mg/dl (74-100); Total Protein,Serum 6.4 g/dl (6.3-8.2)
[2023-10-05 14:53] LABS: Potassium 2.8 mmoL/L (3.5-5.1)
[2023-10-05 15:00] VITALS: BP 113/55; PULSE 92; O2SAT 98
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
[2023-10-05 15:52] LABS: Magnesium 1.8 mg/dl (1.6-2.3)
[2023-10-05] MEDS: POTASSIUM CHLORIDE 20MEQ TAB 60 MEQ PO (16:05)
[2023-10-05] MEDS: CEFTRIAXONE SODIUM 1 GM in 0.9 % SODIUM CHLORIDE 50 ML IV (16:05)
[2023-10-05] MEDS: KCl 10mEq/100ml 100 ML 100 MEQ IV ×2 (16:06→18:30)
--- NOTE | 2023-10-05 17:39 | PC.NURSE ---
Called report to Varsha FONSECA on 2nd floor and answered all questions
[2023-10-05 17:51] VITALS: BP 103/54; PULSE 85; RESP 20; TEMP 36.6; O2SAT 94
[2023-10-05 18:20] VITALS: BP 85/45; PULSE 81; RESP 18; O2SAT 96
[2023-10-05 18:38] VITALS: BMI 34.4
[2023-10-05] MEDS: PAT OWN MED ***FERROUS SULFATE 325MG 325 MG PO (19:04)
[2023-10-05 20:00] VITALS: BP 105/54; PULSE 83; RESP 16; TEMP 36.6; O2SAT 94
[2023-10-05] MEDS: PANTOPRAZOLE 40MG TABLET 40 MG PO (22:25)
[2023-10-05] MEDS: POTASSIUM CHLORIDE 20MEQ TAB 40 MEQ PO (22:25)
[2023-10-05] MEDS: LACTATED RINGERS 1000ML 500 ML IV (22:26)
[2023-10-06] VITALS: BP 90/43; PULSE 79; RESP 17; TEMP 36.4; O2SAT 94
[2023-10-06 04:00] VITALS: BP 90/45; PULSE 78; RESP 14; TEMP 36.6; O2SAT 95; BMI 34.3
[2023-10-06 06:14] LABS: Basophils % 0.3 % (0.1-2.0); Eosinophils # 0.3 K/mm3 (0.0-0.4); Eosinophils % 7.1 % (0.1-12.0); Hematocrit 29.5 % (37.0-47.0); Hemoglobin 9.7 g/dL (12.2-16.2); Lymphocytes # 0.9 K/mm3 (0.7-4.5); Lymphocytes % 21.6 % (10-50); Mean Corpuscular HGB Conc 32.7 g/dL (31.8-35.4); Mean Corpuscular Hemoglobin 34.6 pg (27.0-31.2); Mean Corpuscular Volume 105.8 fl (81-99); Mean Platelet Volume 8.3 fl (7.4-10.4); Monocytes # 0.3 K/mm3 (0.1-1.0); Monocytes % 6.9 % (1.7-9.3); Neutrophils # 2.8 K/mm3 (1.8-7.8); Neutrophils % 64.2 % (37.0-80.0); Platelet Count 115 K/mm3 (142-424); Red Blood Count 2.79 M/mm3 (4.20-5.40); White Blood Count 4.4 K/mm3 (4.8-10.8)
[2023-10-06 06:16] LABS: Ammonia 74 umol/L (9-30)
[2023-10-06 06:20] LABS: Alanine Aminotransferase 61 U/L (12-78); Albumin Level 2.5 g/dl (3.5-5.0); Albumin/Globulin Ratio 0.9 (1.1-1.8); Alkaline Phosphatase 164 U/L (38-126); Anion Gap 6.4 mEq/L (5-15); Aspartate Amino Transferase 92 U/L (14-36); Bilirubin,Total 2.5 mg/dl (0.2-1.3); Blood Urea Nitrogen 12 mg/dl (7-17); Calcium 7.6 mg/dl (8.4-10.2); Carbon Dioxide 31 mmol/L (22.0-30.0); Chloride 102 mmol/L (98-107); Creatinine Clearance Estimated 80 mL/min (50-200); Estimated Glomerular Filt Rate 101 ml/min (>60); GFR (African American) 122 ML/MIN (>60); Globulin 2.8 g/dL (1.3-3.2); Glucose 101 mg/dl (74-100); Magnesium 1.8 mg/dl (1.6-2.3); Potassium 4.4 mmoL/L (3.5-5.1); Sodium 135 mmol/L (136-145); Total Protein,Serum 5.3 g/dl (6.3-8.2)
[2023-10-06 07:57] VITALS: BP 114/59; PULSE 82; RESP 16; TEMP 36.7; O2SAT 98
[2023-10-06] MEDS: LEVOTHYROXINE 125 MCG PO (09:32)
[2023-10-06] MEDS: ASCORBIC ACID 500 MG PO (09:33)
[2023-10-06] MEDS: FUROSEMIDE 40 MG PO (09:34)
[2023-10-06] MEDS: PAT OWN MED ***SPIRONOLACTONE 25MG 25 MG PO (09:36)
[2023-10-06] MEDS: CHOLECALCIFEROL PO (09:36)
[2023-10-06] MEDS: CALCIUM 600 MG PO (09:36)
--- NOTE | 2023-10-06 09:47 | HMH.PHAINT1 ---
Pharmacy Intervention Comments: MEDICATION RECONCILIATION COMPLETED ON PATIENT USING EXTERNAL FILL HISTORY FROM PHARMACY AND DISCHARGE SUMMARY FROM PREVIOUS ADMISSION. -BILLIE SHAY, CHARLYD
[2023-10-06] MEDS: LACTULOSE 20GM/30ML UDC 20 GM PO ×4 (09:48→20:52)
[2023-10-06] MEDS: NYSTATIN TOPICAL POWDER 30GM TP ×4 (09:49→20:52)
[2023-10-06] MEDS: MAGNESIUM OXIDE 400MG TABLET 400 MG PO (09:49)
[2023-10-06] MEDS: VITAMIN B-12 1,000 MCG 1ML VIAL 1000 MCG IM (09:49)
[2023-10-06] MEDS: FOLIC ACID 1MG TABLET 1 MG PO (09:49)
[2023-10-06] MEDS: POTASSIUM CHLORIDE 20MEQ TAB 40 MEQ PO ×2 (09:51→20:52)
[2023-10-06] MEDS: ROPINIROLE 1MG TABLET 0.5 MG PO ×2 (10:32→19:42)
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
--- NOTE | 2023-10-06 11:47 | SW/DCPLANNER ---
Addendum entered by Jeny West 10/09/23 13:47: [facility] stated that services will resume this week for this patient. Addendum entered by Jeny West 10/09/23 10:00: Patient information/order to resume home health services will be faxed to [facility] this AM. Patient will discharge home this afternoon. Original Note: I spoke w/ this patient regarding plans once medically stable for discharge. PT/OT evaluated patient and recommended SNF level of care. I did have a lengthy conversation w/ patient regarding safe discharge plans. Patient is adamant to return home and resume home health services w/ [facility]. Patient stated that she is never at home alone for more than two hours at time. Patient has requested a private sitters list. I will update MD regarding discharge plans. Patient could be ready for discharge tomorrow pending no setbacks.
[2023-10-06 13:31] VITALS: BMI 34.3
[2023-10-06] MEDS: CEFTRIAXONE 1 GM 1 GM in 0.9 % SODIUM CHLORIDE 50 ML IV (15:28)
[2023-10-06 15:51] VITALS: BP 113/65; PULSE 110; RESP 20; TEMP 37.1; O2SAT 96
[2023-10-06] MEDS: PAT OWN MED ***FERROUS SULFATE 325MG 325 MG PO (17:33)
[2023-10-06] MEDS: PRENATAL MULTIVITAMIN W/IRON 1 EACH PO (17:33)
--- NOTE | 2023-10-06 17:49 | PC.NURSE ---
Pt is A&O x3. Remains on RA. SHe has c/o discomfort to LLE. Personal Stocking observed. She has multiple bruising to her BUE,BLE back and Shoulders. Open areas to skin folds under breasts and abdomen. She has a purewick in place. Medications administered per mar. VSS. Call light within [facility].
[2023-10-06 20:00] VITALS: BP 121/61; PULSE 87; RESP 18; TEMP 36.5; O2SAT 96
[2023-10-06] MEDS: VENLAFAXINE 75 MG PO (20:53)
[2023-10-06] MEDS: ESOMEPRAZOLE 40 MG 1 EACH PO (20:53)
[2023-10-06] MEDS: VENLAFAXINE 150 MG 1 EACH PO (20:53)
[2023-10-06] MEDS: ARIPIPRAZOLE 2 MG 1 EACH PO (20:53)
[2023-10-07] MEDS: SIMETHICONE 80MG CHEWABLE TABLET 80 MG PO ×3 (02:22→15:33)
[2023-10-07 04:00] VITALS: BP 141/72; PULSE 83; RESP 16; TEMP 36.6; O2SAT 94; BMI 33.9
--- NOTE | 2023-10-07 04:53 | PC.NURSE ---
Pt is a&ox4. Pt has complained of leg cramps, treated per nov. Pt has complained of gas discomfort, treated per nov. Pt is incontinent, using brief and purewick. Pt has had 2 bowel movements. Pt has been turned in bed by request for comfort. Pt abdomen is firm and large, bowel sounds active. Pt remains on room air. Lung sounds clear. Bed alarm on and functioning. Call light in reach.
[2023-10-07] MEDS: LEVOTHYROXINE 125 MCG PO (06:19)
[2023-10-07 07:08] LABS: Alanine Aminotransferase 65 U/L (12-78); Albumin Level 2.8 g/dl (3.5-5.0); Albumin/Globulin Ratio 0.9 (1.1-1.8); Alkaline Phosphatase 185 U/L (38-126); Anion Gap 8.4 mEq/L (5-15); Aspartate Amino Transferase 95 U/L (14-36); Bilirubin,Total 2.4 mg/dl (0.2-1.3); Blood Urea Nitrogen 8 mg/dl (7-17); Calcium 8.1 mg/dl (8.4-10.2); Carbon Dioxide 29 mmol/L (22.0-30.0); Chloride 103 mmol/L (98-107); Creatinine Clearance Estimated 79 mL/min (50-200); Estimated Glomerular Filt Rate 125 ml/min (>60); GFR (African American) 151 ML/MIN (>60); Glucose 135 mg/dl (74-100); Magnesium 1.8 mg/dl (1.6-2.3); Potassium 4.4 mmoL/L (3.5-5.1); Sodium 136 mmol/L (136-145); Total Protein,Serum 5.8 g/dl (6.3-8.2)
[2023-10-07 07:14] LABS: INR 1.46 (0.9-1.1); Prothrombin Time 15.4 seconds (10.1-12.5)
[2023-10-07 07:15] LABS: Basophils % 0.3 % (0.1-2.0); Eosinophils # 0.1 K/mm3 (0.0-0.4); Eosinophils % 2.5 % (0.1-12.0); Hematocrit 35.3 % (37.0-47.0); Hemoglobin 11.2 g/dL (12.2-16.2); Lymphocytes # 0.9 K/mm3 (0.7-4.5); Mean Corpuscular HGB Conc 31.7 g/dL (31.8-35.4); Mean Corpuscular Hemoglobin 33.9 pg (27.0-31.2); Mean Corpuscular Volume 106.8 fl (81-99); Mean Platelet Volume 8.1 fl (7.4-10.4); Monocytes # 0.4 K/mm3 (0.1-1.0); Monocytes % 7.9 % (1.7-9.3); Neutrophils % 73.2 % (37.0-80.0); Platelet Count 127 K/mm3 (142-424); Red Blood Count 3.31 M/mm3 (4.20-5.40); Red Cell Distribution Width 16.8 % (11.5-17.5); White Blood Count 5.5 K/mm3 (4.8-10.8)
[2023-10-07 08:00] VITALS: BP 127/70; PULSE 84; RESP 18; TEMP 36.5; O2SAT 98
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
[2023-10-07] MEDS: NYSTATIN TOPICAL POWDER 30GM TP ×3 (08:41→21:25)
[2023-10-07] MEDS: ASCORBIC ACID 500 MG PO (08:42)
[2023-10-07] MEDS: ROPINIROLE 1MG TABLET 0.5 MG PO (08:42)
[2023-10-07] MEDS: FOLIC ACID 1MG TABLET 1 MG PO (08:42)
[2023-10-07] MEDS: MAGNESIUM OXIDE 400MG TABLET 400 MG PO (08:42)
--- NOTE | 2023-10-07 08:42 | EXP.EVENT.NO ---
Advance care planning note: Active diagnosis: Process, functional decline, wheelchair dependence, recurring admissions, UTI, progress of weakness, ascites, chronic pain, recurring falls. The patient's active diagnoses are of sufficient risk that focused discussion on advanced care planning is indicated in order to allow the patient to thoughtfully consider personal goals of care; and, if situations arise that prevent the ability to personally give input, to ensure appropriate representation of their personal desires through documentation or informed surrogate decision makers. Discussion: Persons present and participating in discussion: Patient Discussion: Discussed strong concerns for safety at home living by herself. Patient states she is very independent. Has had discussions with family and friends and they support her decision to be independent as long as possible. She has been living in her current setting for over 4 years. Admits that she has been drinking and this may be a culprit in her falls over the past 9 months. Discussed concern for her safety and needing somebody with her at home to assist on a daily basis if going home is what she is going to do. She has been in an assisted living situation before and does not want to return to that if at all possible until she absolutely has no choice. Adamant that she will return home as her home is adapted and she has family close by. We agreed to disagree on safest dispo plan but patient has the ability to make her own decision and I support her autonomy. Social work has been assisting with recommendations for sitters and technician support association at home. Time spent: Total time spent [id number] in education and discussion directly related to advance care plannin min
[2023-10-07] MEDS: FUROSEMIDE 40 MG PO (08:43)
[2023-10-07] MEDS: CALCIUM 600 MG PO (08:43)
[2023-10-07] MEDS: CHOLECALCIFEROL PO (08:43)
[2023-10-07] MEDS: PAT OWN MED ***SPIRONOLACTONE 25MG 25 MG PO (08:44)
[2023-10-07] MEDS: POTASSIUM CHLORIDE 20MEQ TAB 40 MEQ PO ×2 (09:10→21:25)
--- NOTE | 2023-10-07 14:45 | PC.NURSE ---
patient got up to the chair with PT and ate lunch, simethicone administered every 6hr for c/o gas pain.
--- NOTE | 2023-10-07 14:53 | PC.NURSE ---
Addendum entered by Michele Robertson RN 10/07/23 16:02: skin under compression stocking on LLE is dry and intact. Original Note: Patient has remained on RA and vital signs have been stable. Pt states that she is not interested in assisted living and did not want to be discharged today due to her persistent stomach pain. She has been transferring from bed to chair with the use of a walker and assistx1, voids per purewick/bedside commode.
[2023-10-07] MEDS: CEFTRIAXONE 1 GM 1 GM in 0.9 % SODIUM CHLORIDE 50 ML IV (15:17)
[2023-10-07 16:00] VITALS: BP 128/60; PULSE 88; RESP 22; TEMP 36.6; O2SAT 99
[2023-10-07] MEDS: POLYETHYLENE GLYCOL 3350 17 GM PACKET PO (17:16)
[2023-10-07] MEDS: PRENATAL MULTIVITAMIN W/IRON 1 EACH PO (17:17)
[2023-10-07] MEDS: PAT OWN MED ***FERROUS SULFATE 325MG 325 MG PO (17:23)
[2023-10-07 20:00] VITALS: BP 134/79; PULSE 90; RESP 16; TEMP 36.3; O2SAT 96
[2023-10-07] MEDS: ESOMEPRAZOLE 40 MG 1 EACH PO (21:24)
[2023-10-07] MEDS: VENLAFAXINE 150 MG 1 EACH PO (21:24)
[2023-10-07] MEDS: ARIPIPRAZOLE 2 MG 1 EACH PO (21:25)
[2023-10-08 04:00] VITALS: BP 110/58; PULSE 85; RESP 18; TEMP 36.6; O2SAT 92; BMI 31.6
[2023-10-08] MEDS: SIMETHICONE 80MG CHEWABLE TABLET 80 MG PO (04:57)
--- NOTE | 2023-10-08 05:13 | PC.NURSE ---
Pt has complained of gas one time, treated per nov. Pt uses purewick and brief. Pt has had no other complaints. Bed alarm on and functioning.
[2023-10-08] MEDS: LEVOTHYROXINE 125 MCG PO (06:36)
[2023-10-08 07:19] LABS: Ammonia 84 umol/L (9-30)
[2023-10-08 07:36] VITALS: O2SAT 92
[2023-10-08 07:39] LABS: Alanine Aminotransferase 53 U/L (12-78); Albumin Level 2.8 g/dl (3.5-5.0); Alkaline Phosphatase 178 U/L (38-126); Anion Gap 9.7 mEq/L (5-15); Aspartate Amino Transferase 72 U/L (14-36); Bilirubin,Total 2.6 mg/dl (0.2-1.3); Blood Urea Nitrogen 10 mg/dl (7-17); Calcium 8.1 mg/dl (8.4-10.2); Carbon Dioxide 28 mmol/L (22.0-30.0); Chloride 99 mmol/L (98-107); Creatinine Clearance Estimated 74 mL/min (50-200); Estimated Glomerular Filt Rate 125 ml/min (>60); GFR (African American) 151 ML/MIN (>60); Globulin 2.9 g/dL (1.3-3.2); Glucose 104 mg/dl (74-100); Potassium 4.7 mmoL/L (3.5-5.1); Sodium 132 mmol/L (136-145); Total Protein,Serum 5.7 g/dl (6.3-8.2)
[2023-10-08 07:41] LABS: Basophils # 0.1 K/mm3 (0-0.2); Basophils % 0.7 % (0.1-2.0); Eosinophils # 0.3 K/mm3 (0.0-0.4); Eosinophils % 4.3 % (0.1-12.0); Hematocrit 35.1 % (37.0-47.0); Hemoglobin 11.3 g/dL (12.2-16.2); Lymphocytes # 1.4 K/mm3 (0.7-4.5); Lymphocytes % 21.2 % (10-50); Mean Corpuscular HGB Conc 32.2 g/dL (31.8-35.4); Mean Corpuscular Hemoglobin 34.3 pg (27.0-31.2); Mean Corpuscular Volume 106.6 fl (81-99); Mean Platelet Volume 8.3 fl (7.4-10.4); Monocytes # 0.5 K/mm3 (0.1-1.0); Monocytes % 7.4 % (1.7-9.3); Neutrophils # 4.4 K/mm3 (1.8-7.8); Neutrophils % 66.3 % (37.0-80.0); Platelet Count 136 K/mm3 (142-424); Red Blood Count 3.29 M/mm3 (4.20-5.40); Red Cell Distribution Width 16.8 % (11.5-17.5); White Blood Count 6.6 K/mm3 (4.8-10.8)
[2023-10-08 08:00] VITALS: BP 125/58; PULSE 90; RESP 18; TEMP 36.7; O2SAT 98
[2023-10-08] MEDS: MAGNESIUM OXIDE 400MG TABLET 400 MG PO (09:00)
[2023-10-08] MEDS: RIFAXIMIN 550MG TABLET 550 MG PO ×2 (09:22→20:26)
[2023-10-08] MEDS: FOLIC ACID 1MG TABLET 1 MG PO (09:22)
[2023-10-08] MEDS: POTASSIUM CHLORIDE 20MEQ TAB 40 MEQ PO (09:23)
[2023-10-08] MEDS: POLYETHYLENE GLYCOL 3350 17 GM PACKET PO ×2 (09:25→20:26)
[2023-10-08] MEDS: ASCORBIC ACID 500 MG PO (09:30)
[2023-10-08] MEDS: CHOLECALCIFEROL PO (09:30)
[2023-10-08] MEDS: CALCIUM 600 MG PO (09:30)
[2023-10-08] MEDS: FUROSEMIDE 40 MG PO (09:34)
[2023-10-08] MEDS: PAT OWN MED ***SPIRONOLACTONE 25MG 25 MG PO (09:35)
[2023-10-08] MEDS: NYSTATIN TOPICAL POWDER 30GM TP ×3 (09:36→20:27)
[2023-10-08] MEDS: VENLAFAXINE 75 MG PO (09:37)
[2023-10-08] MEDS: ROPINIROLE 1MG TABLET 0.5 MG PO (09:39)
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
--- NOTE | 2023-10-08 12:08 | PC.NURSE ---
SCDs applied to bilateral lower extremities, patient denies discomfort, skin underneath is warm, dry, and intact. will continue to monitor.
[2023-10-08] MEDS: CEFTRIAXONE 1 GM 1 GM in 0.9 % SODIUM CHLORIDE 50 ML IV (14:50)
[2023-10-08 16:00] VITALS: BP 127/59; PULSE 97; RESP 16; TEMP 36.8; O2SAT 96
[2023-10-08] MEDS: PRENATAL MULTIVITAMIN W/IRON 1 EACH PO (17:48)
[2023-10-08] MEDS: PAT OWN MED ***FERROUS SULFATE 325MG 325 MG PO (17:48)
[2023-10-08 20:00] VITALS: BP 122/72; PULSE 86; RESP 20; TEMP 36.8; O2SAT 97
[2023-10-08] MEDS: VENLAFAXINE 150 MG 1 EACH PO (20:27)
[2023-10-08] MEDS: ARIPIPRAZOLE 2 MG 1 EACH PO (20:27)
[2023-10-08] MEDS: ESOMEPRAZOLE 40 MG 1 EACH PO (20:27)
[2023-10-08] MEDS: HYDROCODONE/APAP 5/325 MG TABLET 1 TAB PO (21:29)
[2023-10-09 04:00] VITALS: BP 112/62; PULSE 79; RESP 18; TEMP 36.9; O2SAT 91; BMI 32.1
--- NOTE | 2023-10-09 05:06 | PC.NURSE ---
Pt has rested through the night. Pt has complained of back pain one time, treated per mar. SCDs applied to BLE. Pt has been turned to right side. No other complaints.
[2023-10-09] MEDS: LEVOTHYROXINE 125 MCG PO (06:33)
[2023-10-09 06:51] LABS: Basophils # 0.1 K/mm3 (0-0.2); Basophils % 0.7 % (0.1-2.0); Eosinophils # 0.4 K/mm3 (0.0-0.4); Eosinophils % 6.3 % (0.1-12.0); Hematocrit 32.5 % (37.0-47.0); Hemoglobin 10.6 g/dL (12.2-16.2); Lymphocytes # 1.7 K/mm3 (0.7-4.5); Lymphocytes % 25.5 % (10-50); Mean Corpuscular HGB Conc 32.5 g/dL (31.8-35.4); Mean Corpuscular Hemoglobin 33.6 pg (27.0-31.2); Mean Corpuscular Volume 103.2 fl (81-99); Mean Platelet Volume 7.9 fl (7.4-10.4); Monocytes # 0.5 K/mm3 (0.1-1.0); Monocytes % 7.2 % (1.7-9.3); Neutrophils # 4.1 K/mm3 (1.8-7.8); Neutrophils % 60.2 % (37.0-80.0); Platelet Count 156 K/mm3 (142-424); Red Blood Count 3.15 M/mm3 (4.20-5.40); Red Cell Distribution Width 16.5 % (11.5-17.5); White Blood Count 6.8 K/mm3 (4.8-10.8)
[2023-10-09 07:00] LABS: Alanine Aminotransferase 47 U/L (12-78); Albumin Level 2.7 g/dl (3.5-5.0); Alkaline Phosphatase 169 U/L (38-126); Anion Gap 7.2 mEq/L (5-15); Aspartate Amino Transferase 66 U/L (14-36); Bilirubin,Total 2.1 mg/dl (0.2-1.3); Blood Urea Nitrogen 10 mg/dl (7-17); Calcium 8.2 mg/dl (8.4-10.2); Carbon Dioxide 31 mmol/L (22.0-30.0); Chloride 98 mmol/L (98-107); Creatinine Clearance Estimated 75 mL/min (50-200); Estimated Glomerular Filt Rate 125 ml/min (>60); GFR (African American) 151 ML/MIN (>60); Globulin 2.8 g/dL (1.3-3.2); Glucose 99 mg/dl (74-100); Potassium 4.2 mmoL/L (3.5-5.1); Sodium 132 mmol/L (136-145); Total Protein,Serum 5.5 g/dl (6.3-8.2)
[2023-10-09 07:21] LABS: Ammonia 79 umol/L (9-30)
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
[2023-10-09 07:40] VITALS: BP 120/57; PULSE 87; RESP 17; TEMP 36.7; O2SAT 95
--- NOTE | 2023-10-09 07:55 | EXP.PHA.PN ---
Subjective *Date: 10/09/23 *Time: 07:55 Medical Exam Vital signs and Labs for Last 24 Hours: Vital Signs Temp Pulse Resp BP Pulse Ox O2 Del Method 10/09/23 07:40 98.1 F 87 17 120/57 L 95 Room Air 10/09/23 06:37 Room Air 10/09/23 04:36 Room Air 10/09/23 04:00 98.5 F 79 18 112/62 91 L Room Air 10/09/23 02:36 Room Air 10/09/23 00:40 Room Air 10/08/23 22:48 Room Air 10/08/23 20:56 Room Air 10/08/23 20:00 Room Air 10/08/23 20:00 98.3 F 86 20 122/72 97 Room Air 10/08/23 18:50 Room Air 10/08/23 17:00 Room Air 10/08/23 15:00 Room Air 10/08/23 16:00 98.2 F 97 H 16 127/59 L 96 Room Air 10/08/23 13:00 Room Air 10/08/23 11:00 Room Air 10/08/23 09:00 Room Air 10/08/23 08:00 98.1 F 90 18 125/58 L 98 Room Air Intake and Output 10/08/23 10/08/23 10/09/23 15:59 23:59 07:59 Intake Total 510 / 1320 810 / 1320 240 / 240 Output Total 2300 / 3000 300 / 3000 925 / 925 Balance -1790 / -1680 510 / -1680 -685 / -685 Intake: Intake, Oral Amount 510 / 1320 810 / 1320 240 / 240 Output: Output, Urine Amount 2300 / 3000 300 / 3000 925 / 925 Other: Number of Voids 0 Number of Unmeasured Voids 0 0 0 Weight 82.27 kg Patient Weight 10/09/23 23:59 Weight 82.27 kg Laboratory Results - last 24 hr 10/09/23 06:23: WBC 6.8, RBC 3.15 L, Hgb 10.6 L, Hct 32.5 L, MCV 103.2 H, MCH 33.6 H, MCHC 32.5, RDW 16.5, Plt Count 156, MPV 7.9, Neut % (Auto) 60.2, Lymph % (Auto) 25.5, [place] % (Auto) 7.2, Eos % (Auto) 6.3, Baso % (Auto) 0.7, Neut # (Auto) 4.1, Lymph # (Auto) 1.7, [place] # (Auto) 0.5, Eos # (Auto) 0.4, Baso # (Auto) 0.1, Sodium 132 L, Potassium 4.2, Chloride 98, Carbon Dioxide 31 H, Anion Gap 7.2, BUN 10, Creatinine 0.50 L, Estimated Creat Clear 75, Estimated GFR 125, Est GFR ( Amer) 151, Glucose 99, Calcium 8.2 L, Magnesium 2.0, Total Bilirubin 2.1 H, AST 66 H, ALT 47, Alkaline Phosphatase 169 H, Total Protein 5.5 L, Albumin 2.7 L, Globulin 2.8, Albumin/Globulin Ratio 1.0 L I & O for Labs for Last 24 Hours: Intake & Output 10/06/23 10/07/23 10/08/23 10/09/23 23:59 23:59 23:59 23:59 Intake Total 1060 / 1060 360 / 360 1320 / 1320 240 / 240 Output Total 1600 / 1600 3825 / 3825 3000 / 3000 925 / 925 Balance -540 / -540 -3465 / -3465 -1680 / -1680 -685 / -685 Weight 88 kg 86.818 kg 80.881 kg 82.27 kg Microbiology Reports for the Last 24 Hours: Microbiology 10/05/23 16:10 Blood Blood Culture - Preliminary 10/05/23 15:43 Blood Blood Culture - Preliminary 10/05/23 13:35 Urine,Clean Catch Urine Culture - Final The patient's infection will respond to the chosen ABx?: Yes Is the patient receiving the right drug, dose, and route?: Yes Could a more targeted ABx be ordered?: No (WBL WNL, BLD CX (-) X2, URINE CX MIXED CX.)
[2023-10-09] MEDS: ASCORBIC ACID 500 MG PO (09:57)
[2023-10-09] MEDS: FOLIC ACID 1MG TABLET 1 MG PO (09:57)
[2023-10-09] MEDS: MAGNESIUM OXIDE 400MG TABLET 400 MG PO (09:58)
[2023-10-09] MEDS: FUROSEMIDE 40 MG PO (09:58)
[2023-10-09] MEDS: CHOLECALCIFEROL PO (09:59)
[2023-10-09] MEDS: POLYETHYLENE GLYCOL 3350 17 GM PACKET PO (09:59)
[2023-10-09] MEDS: CALCIUM 600 MG PO (09:59)
[2023-10-09] MEDS: NYSTATIN TOPICAL POWDER 30GM TP ×2 (09:59→13:19)
[2023-10-09] MEDS: RIFAXIMIN 550MG TABLET 550 MG PO (10:00)
[2023-10-09] MEDS: POTASSIUM CHLORIDE 20MEQ TAB 40 MEQ PO (10:00)
[2023-10-09] MEDS: PAT OWN MED ***SPIRONOLACTONE 25MG 25 MG PO (10:01)
[2023-10-09] MEDS: VENLAFAXINE 75 MG PO (10:02)
[2023-10-09] MEDS: SODIUM PHOS/BIPHOSPHATE FLEET 133ML ENEMA 133 ML RC (13:19)
--- NOTE | 2023-10-10 11:40 | CARE MANAGER ---
Called and spoke with patient regarding recent discharge. Patient stated that she is doing well, no concerns voiced at time of call.
--- NOTE | 2023-10-13 17:59 | PC.NURSE ---
Final blood culture results given to the warehouse foreman, Kathya Holman RN, to give to the hospitalist on at this time.
== END 2023-10-09 15:15 | disposition home health service (06) ==
LOC: ER 15:47 → ICU 10-06 00:57 → 2ND 10-06 17:04 → ICU 10-12 15:12
PROVIDERS: Admitting Provider Internal Medicine Adolescent Medicine; Emergency Provider Emergency Medicine; Visit Provider Internal Medicine Adolescent Medicine
DX: N39.0 Urinary tract infection, site not specified (principal); E87.6 Hypokalemia; S32.009A Unspecified fracture of unspecified lumbar vertebra, initial encounter for closed fracture; I89.0 Lymphedema, not elsewhere classified; K74.60 Unspecified cirrhosis of liver; R18.8 Other ascites; I10 Essential (primary) hypertension; Z99.3 Dependence on wheelchair; E66.9 Obesity, unspecified; E72.20 Disorder of urea cycle metabolism, unspecified; F32.A Depression, unspecified; E03.9 Hypothyroidism, unspecified; Z68.32 Body mass index [BMI] 32.0-32.9, adult; T50.2X5A Adverse effect of carbonic-anhydrase inhibitors, benzothiadiazides and other diuretics, initial encounter
CPT/HCPCS: 36415; 71250; 72125; 72128; 72131; 72192; 74176; 80053; 81001; 82140; 83735; 85025; 85610; 87040; 87086; 97110; 97163; 97165; 97530; 99285; G0378; J0131; J0696

== ENCOUNTER 2023-10-15 20:23 | Emergency (ER) | payer MEDICARE, OTHER, SELFPAY ==
[2023-10-15 20:23] VITALS: BP 113/60; PULSE 90; RESP 18; TEMP 36.7; O2SAT 99; BMI 35.4
[2023-10-15 21:00] VITALS: BP 114/59; PULSE 90; RESP 16; O2SAT 98
--- NOTE | 2023-10-15 21:05 | ED_ITS ---
Discharge Plan Disposition Patient Disposition: Home, Self-Care Prescriptions Prescriptions: No Action cyclobenzaprine 10 mg tablet 10 mg PO TID PRN (Reason: Musle spasms) venlafaxine 75 mg capsule,extended release 24hr 75 mg PO HS Rx Instructions: TAKES WITH 150 MG DOSE HS. spironolactone 25 mg tablet 25 mg PO BIDP PRN (Reason: Blood Pressure) ferrous sulfate [FeroSul] 325 mg (65 mg iron) tablet 325 mg PO PM Patient Comments: TAKE 1 TABLET BY MOUTH EVERY DAY AT DINNER esomeprazole magnesium 40 mg capsule,delayed release(DR/EC) 40 mg PO DAILY levothyroxine [Synthroid] 125 mcg Tablet 125 mcg PO DAILY ascorbic acid (vitamin C) 500 mg Tablet 500 mg PO DAILY magnesium 250 mg Tablet 250 mg PO DAILY calcium carbonate-vitamin D3 [Calcium 600 + D(3)] 600 mg-10 mcg (400 unit) Tablet 1 tab PO DAILY cholecalciferol (vitamin D3) [Vitamin D3] 125 mcg (5,000 unit) Tablet 250 mcg PO DAILY nystatin 100,000 unit/gram Powder 1 applic topical QID 10 Days Qty: 30 0RF furosemide 40 mg tablet 40 mg PO DAILY 30 Days Qty: 30 0RF hydrocodone-acetaminophen 5-325 mg tablet 1 tab PO Q6H PRN (Reason: pain) 3 Days Qty: 12 0RF aripiprazole 2 mg Tablet 2 mg PO HS ropinirole 0.5 mg Tablet 0.5 mg PO TID PRN (Reason: Restless Legs) Xifaxan 550 mg Tablet 550 mg PO BID 30 Days Qty: 60 1RF potassium chloride [Klor-Con M20] 20 mEq Tablet,Er Particles/Crystals 20 meq PO DAILY 30 Days Qty: 30 0RF Vitamin 27 mg iron- 800 mcg Tablet 1 tab PO 1700 30 Days Qty: 30 0RF polyethylene glycol 3350 [Miralax] 17 gram Powder In Packet 17 g PO BID 30 Days Qty: 524 0RF Referrals Follow up/Referrals: Provider,Referral, MD [Primary Care Provider] - See instructions Activity Restrictions/Add. Instructions Additional Instructions/Restrictions: At this time it was felt you are safe to be discharged home. If new or worsening symptoms please do not hesitate to return the emergency department. If you wish to be admitted for placement please do not hesitate to return to the emergency department at any time. Clinical Impressions Clinical Impression: Dysuria, Declining functional status, Cirrhosis Discharge ED Provider: Lonnie Cornejo General Adult HPI General Chief complaint: Urogenital-Female Stated complaint: UTI Time Seen by Provider: 10/15/23 20:30 Mode of Arrival: EMS Source of Information: Patient and EMS Limitations: Physical Limitations Description of Symptoms (Recalled from ER Triage Doc. by RN): Patient states that she has had symptoms of a UTI since Monday. Patient also states that she had a UTI about 2 weeks ago. History of Present Illness HPI narrative: DejannemPatient is a 62-year-old female with multiple comorbidities including lymphedema, declining functional status, wheelchair dependent at baseline who presents to the emergency department for evaluation of symptoms related to urination. I remember this patient, I saw her recently and she was diagnosed with a avulsion fracture of her acetabulum as well as a transverse process fracture. Ultimately she was admitted to hospital medicine here with urinary tract infection, cirrhosis with hyperammonemia, physical therapy and Occupational Therapy evaluation for which she ultimately declined placement although it was heavily recommended. Patient was discharged on MiraLAX and rifaximin given inability to tolerate lactulose. Patient since then has had new onset urinary symptoms, she uses a pure wick at home which she is able to replace the heads however is unable to pull replace the tubing or collection canister. She has had decreased p.o. intake since she was discharged but she feels as if she is dehydrated. She presents here for continued evaluation. Related Data Home Medications Medication Instructions Recorded Confirmed aripiprazole 2 mg tablet 2 mg PO HS 05/23/22 10/15/23 ropinirole 0.5 mg tablet 0.5 mg PO TID PRN Restless Legs 05/23/22 10/15/23 ascorbic acid (vitamin C) 500 mg 500 mg PO DAILY 09/24/23 10/15/23 tablet calcium carbonate 600 mg-vitamin 1 tab PO DAILY 09/24/23 10/15/23 D3 10 mcg (400 unit) tablet (Calcium 600 + D(3)) cholecalciferol (vitamin D3) 125 250 mcg PO DAILY 09/24/23 10/15/23 mcg (5,000 unit) tablet (Vitamin D3) cyclobenzaprine 10 mg tablet 10 mg PO TID PRN Musle spasms 09/24/23 10/15/23 esomeprazole magnesium 40 mg 40 mg PO DAILY 09/24/23 10/15/23 capsule,delayed release ferrous sulfate 325 mg (65 mg 325 mg PO PM 09/24/23 10/15/23 iron) tablet (FeroSul) levothyroxine 125 mcg tablet 125 mcg PO DAILY 09/24/23 10/15/23 (Synthroid) magnesium 250 mg tablet 250 mg PO DAILY 09/24/23 10/15/23 spironolactone 25 mg tablet 25 mg PO BIDP PRN Blood Pressure 09/24/23 10/15/23 venlafaxine 75 mg capsule,extended 75 mg PO HS 09/24/23 10/15/23 release 24 hr Previous Rx's Medication Instructions Recorded furosemide 40 mg tablet 40 mg PO DAILY 30 days #30 tabs 09/25/23 hydrocodone 5 mg-acetaminophen 325 1 tab PO Q6H PRN pain 3 days #12 09/25/23 mg tablet tabs nystatin 100,000 unit/gram topical 1 applic topical QID 10 days #30 09/25/23 powder grams polyethylene glycol 3350 17 gram 17 g PO BID 30 days #524 grams 10/09/23 oral powder packet (Miralax) potassium chloride 20 mEq 20 meq PO DAILY 30 days #30 tabs 10/09/23 tablet,extended release(part/cryst) (Klor-Con M) vits no.130-ferrous fum 1 tab PO 1700 30 days #30 tabs 10/09/23 27 mg iron-folic acid 800 mcg tablet ( Vitamin) rifaximin 550 mg tablet (Xifaxan) 550 mg PO BID 30 days #60 tabs 10/09/23 Allergies Allergy/AdvReac Type Severity Reaction Status Date / Time tizanidine Allergy Mild Verified 09/24/23 23:17 [facility] Disclaimer: The information contained in this section may have been updated after the patient was seen, as this information can be updated by other users. Medical History Anemia Anxiety Cerebellar disorder Chronic diarrhea Chronic pain Depression HTN (hypertension) Hypothyroidism Lymphedema Peptic ulcer Surgical History H/O laminectomy H/O left knee surgery H/O shoulder surgery Family History (Updated 10/05/23 @ 18:18 by Selene Cruz RN) Other Family history of hypertension Social History (Updated 10/05/23 @ 18:18 by Selene Cruz RN) Smoking Status: Never smoker alcohol intake: never current occupational status: other Travel in the last 8 weeks: None ROS Obtained: Yes Systems reviewed as appropriate & no additional complaints except as documented Physical Exam General General appearance: alert and in no apparent distress Head Head exam: atraumatic and normocephalic Eye Eye exam: Present PERRL and EOMI ENT ENT exam: Present mucous membranes moist Neck Neck exam: Present normal inspection Chest Chest inspection: Present normal inspection and symmetric chest wall rise Respiratory Respiratory exam: Present normal lung sounds bilaterally; Absent respiratory distress Cardiovascular Cardiovascular exam: Present regular rate and normal rhythm Abdominal Exam Abdominal exam: Present soft; Absent tenderness Extremities Exam Extremities exam: Present normal inspection Neurological Exam Neurological exam: Present alert Psychiatric Psychiatric exam: Present normal affect and other (Slow to speech) Skin Skin exam: Present warm and dry Medical Decision Making Get Inquiry Pt receiving controlled substance: No Vital Signs: 10/15/23 20:23 10/15/23 21:00 Temperature 98.1 F Temperature Source Oral Pulse Rate 90 Pulse Rate [Radial] 90 Respiratory Rate 18 16 Blood Pressure 114/59 L Blood Pressure [Left Arm] 113/60 Blood Pressure Mean [Left Arm] 77 Blood Pressure Source [Left Arm] Automatic Cuff Blood Pressure Position [Left Arm] Supine 02 Sat by Pulse Oximetry 99 98 Oxygen Delivery Method Room Air Lab Data Lab Results 10/15/23 21:19: WBC 8.3, RBC 3.40 L, Hgb 11.4 L, Hct 35.5 L, MCV 104.2 H, MCH 33.5 H, MCHC 32.1, RDW 16.4, Plt Count 174, MPV 8.4, Neut % (Auto) 79.6, Lymph % (Auto) 13.9, [place] % (Auto) 4.6, Eos % (Auto) 1.5, Baso % (Auto) 0.4, Neut # (Auto) 6.6, Lymph # (Auto) 1.2, [place] # (Auto) 0.4, Eos # (Auto) 0.1, Baso # (Auto) 0.0, Sodium 130 L, Potassium 4.5, Chloride 94 L, Carbon Dioxide 34 H, Anion Gap 6.5, BUN 11, Creatinine 0.60, Estimated Creat Clear 82, Estimated GFR 101, Est GFR ( Amer) 122, Glucose 154 H, Calcium 8.4, Magnesium 2.1, Total Bilirubin 1.8 H, AST 92 H, ALT 57, Alkaline Phosphatase 259 H, Ammonia 52 H, Total Protein 6.9 D, Albumin 3.7, Globulin 3.2, Albumin/Globulin Ratio 1.2 10/15/23 22:00: Urine Color Yellow, Urine Appearance Clear, Urine pH 6.5, Ur Specific [place] 1.010, Urine Protein Negative, Urine Glucose (UA) Negative, Urine Ketones Negative, Urine Blood Negative, Urine Nitrate Negative, Urine Bilirubin Negative, Urine Urobilinogen 1.0, Ur Leukocyte Esterase Negative, Urine RBC None, Urine WBC None, Ur Squamous Epith Cells None, Urine Bacteria None 10/15/23 21:19 10/15/23 21:19 Orders (Tests/Meds): ED MEDICATIONS Discontinued Medications Generic Name Dose Route Start Last Admin Trade Name Freq PRN Reason Stop Dose Admin Lactated Ringer's 1,000 mls @ 999 mls/hr 10/15/23 21:03 10/15/23 21:25 Lactated Ringer's 1000 Ml Bag IV 10/15/23 22:03 999 mls/hr .Q1H1M ONE Administration ORDERS Category Date Time Status Ammonia Stat Lab 10/15/23 21:19 Completed CBC w/Auto Diff [Complete Blood Count Auto Diff] Stat Lab 10/15/23 21:19 Completed CMP [Comprehensive Metabolic Panel] Stat Lab 10/15/23 21:19 Completed MG [Magnesium] Stat Lab 10/15/23 21:19 Completed UA [Urinalysis and Microscopic] Stat Lab 10/15/23 22:00 Completed Medical Decision Narrative: In summary patient is a 62-year-old female with past medical history described above who presents emergency department for evaluation of urinary symptoms. Patient is hemodynamically stable nontoxic-appearing upon arrival, afebrile. Differential diagnosis includes urinary tract infection, hyperammonemia, electrolyte derangement, among others. Workup will be conducted with hematologic labs, urinalysis. Initial interventions include crystalloid bolus. Initial workup reviewed by me, hematologic labs are nonactionable, persistent hyponatremia, no critical electrolyte abnormalities or SHANAE. Ammonia is downtrending which is reassuring given that patient is on rifaximin it is likely working. No critical worsening of hyperbilirubinemia or transaminitis to necessitate further acute workup. Urinalysis independently interpreted by me not consistent with infection. Upon repeat evaluation extensive discussion was had at bedside. Patient does not wish to be placed at this time, patient has capacity to make this decision and is appropriate for discharge at this time. Patient was given return precautions and encouraged to come back should she wish to seek placement at any time. Critical Care Critical Care Time Critical Care Time: No
[2023-10-15] MEDS: LACTATED RINGERS 1000ML 1,000 ML 999 ML IV (21:25)
[2023-10-15 21:34] LABS: Basophils % 0.4 % (0.1-2.0); Eosinophils # 0.1 K/mm3 (0.0-0.4); Eosinophils % 1.5 % (0.1-12.0); Hematocrit 35.5 % (37.0-47.0); Hemoglobin 11.4 g/dL (12.2-16.2); Lymphocytes # 1.2 K/mm3 (0.7-4.5); Lymphocytes % 13.9 % (10-50); Mean Corpuscular HGB Conc 32.1 g/dL (31.8-35.4); Mean Corpuscular Hemoglobin 33.5 pg (27.0-31.2); Mean Corpuscular Volume 104.2 fl (81-99); Mean Platelet Volume 8.4 fl (7.4-10.4); Monocytes # 0.4 K/mm3 (0.1-1.0); Monocytes % 4.6 % (1.7-9.3); Neutrophils # 6.6 K/mm3 (1.8-7.8); Neutrophils % 79.6 % (37.0-80.0); Platelet Count 174 K/mm3 (142-424); Red Cell Distribution Width 16.4 % (11.5-17.5); White Blood Count 8.3 K/mm3 (4.8-10.8)
[2023-10-15 21:37] LABS: Chloride 94 mmol/L (98-107); Sodium 130 mmol/L (136-145)
[2023-10-15 21:38] LABS: Potassium 4.5 mmoL/L (3.5-5.1)
[2023-10-15 21:40] LABS: Alanine Aminotransferase 57 U/L (12-78); Albumin Level 3.7 g/dl (3.5-5.0); Albumin/Globulin Ratio 1.2 (1.1-1.8); Alkaline Phosphatase 259 U/L (38-126); Anion Gap 6.5 mEq/L (5-15); Aspartate Amino Transferase 92 U/L (14-36); Bilirubin,Total 1.8 mg/dl (0.2-1.3); Blood Urea Nitrogen 11 mg/dl (7-17); Carbon Dioxide 34 mmol/L (22.0-30.0); Creatinine Clearance Estimated 82 mL/min (50-200); Estimated Glomerular Filt Rate 101 ml/min (>60); GFR (African American) 122 ML/MIN (>60); Globulin 3.2 g/dL (1.3-3.2); Total Protein,Serum 6.9 g/dl (6.3-8.2)
[2023-10-15 21:41] LABS: Ammonia 52 umol/L (9-30); Calcium 8.4 mg/dl (8.4-10.2); Glucose 154 mg/dl (74-100)
[2023-10-15 21:44] LABS: Magnesium 2.1 mg/dl (1.6-2.3)
[2023-10-15 22:00] VITALS: BP 111/61; PULSE 85; RESP 19; O2SAT 95
[2023-10-15 22:05] LABS: Microscopic, Urine URINE MICROSCOPIC (MICROSCOPIC)
[2023-10-15 22:11] LABS: Appearance,Urine CLEAR (Clear); Bilirubin,Urine Negative (Negative); Blood, Urine Negative (Negative); Color,Urine YELLOW (Yellow); Glucose,Urine (UA) Negative (Negative); Ketones,Urine Negative (Negative); Leukocyte Esterase,Urine Negative (Negative); Nitrate,Urine Negative (Negative); PH,Urine 6.5 (5.0-8.5); Protein,Urine Negative (Negative)
[2023-10-15 23:35] VITALS: BP 107/63; PULSE 77; RESP 18; TEMP 36.6; O2SAT 97
== END 2023-10-15 23:36 | disposition home or self-care (01) ==
PROVIDERS: Emergency Provider Emergency Medicine
DX: E87.1 Hypo-osmolality and hyponatremia (principal); R30.0 Dysuria; K74.60 Unspecified cirrhosis of liver; R53.81 Other malaise; G32.81 Cerebellar ataxia in diseases classified elsewhere; I10 Essential (primary) hypertension; E03.9 Hypothyroidism, unspecified
CPT/HCPCS: 80053; 81001; 82140; 83735; 85025; 96360; 99284

== ENCOUNTER 2023-11-20 14:29 | Emergency (ER) | payer MEDICARE, OTHER, SELFPAY ==
[2023-11-20] VITALS (9 sets, daily range): BP systolic 96–136; BP diastolic 52–91; PULSE 81–108; RESP 18–20; TEMP 36.7–37; O2SAT 95–99; BMI 32.8
--- NOTE | 2023-11-20 15:03 | ED_ITS ---
<Statement entered by Leti Estrada MD - 11/20/23 22:52> I was consulted by the SHAGUFTA, and we discussed the complexity of the problems being addressed. I approved the treatment and management plan for this patient's care in the emergency department, thus performing a substantive portion of the medical decision making. Leti Estrada MD, HUNTER, FACEP <Statement entered by Lonnie Cornejo MD - 11/20/23 16:14> I was consulted by the SHAGUFTA, and we discussed the complexity of the problems being addressed. I approved the treatment and management plan for this patient's care in the emergency department, thus performing a substantive portion of the medical decision making. Lonnie Cornejo MD Patient has history of lymphedema, acetabular fracture recently in September, chronic debility of midline who presented for indurated redness has been progressing over her left hip and back. My concern for infection is high. Case discussed with SHAGUFTA and initial workup initiated, antibiotics initiated, workup pending at time of transfer of care to the oncoming physician, Dr. Estrada. Discharge Plan Disposition Patient Disposition: Xfer Other Condition: Fair Prescriptions Prescriptions: No Action cyclobenzaprine 10 mg tablet 10 mg PO TID PRN (Reason: Musle spasms) venlafaxine 75 mg capsule,extended release 24hr 75 mg PO HS Rx Instructions: TAKES WITH 150 MG DOSE HS. spironolactone 25 mg tablet 25 mg PO BIDP PRN (Reason: Blood Pressure) ferrous sulfate [FeroSul] 325 mg (65 mg iron) tablet 325 mg PO PM Patient Comments: TAKE 1 TABLET BY MOUTH EVERY DAY AT DINNER esomeprazole magnesium 40 mg capsule,delayed release(DR/EC) 40 mg PO DAILY levothyroxine [Synthroid] 125 mcg Tablet 125 mcg PO DAILY ascorbic acid (vitamin C) 500 mg Tablet 500 mg PO DAILY magnesium 250 mg Tablet 250 mg PO DAILY calcium carbonate-vitamin D3 [Calcium 600 + D(3)] 600 mg-10 mcg (400 unit) Tablet 1 tab PO DAILY cholecalciferol (vitamin D3) [Vitamin D3] 125 mcg (5,000 unit) Tablet 250 mcg PO DAILY nystatin 100,000 unit/gram Powder 1 applic topical QID 10 Days Qty: 30 0RF furosemide 40 mg tablet 40 mg PO DAILY 30 Days Qty: 30 0RF hydrocodone-acetaminophen 5-325 mg tablet 1 tab PO Q6H PRN (Reason: pain) 3 Days Qty: 12 0RF aripiprazole 2 mg Tablet 2 mg PO HS ropinirole 0.5 mg Tablet 0.5 mg PO TID PRN (Reason: Restless Legs) Xifaxan 550 mg Tablet 550 mg PO BID 30 Days Qty: 60 1RF potassium chloride [Klor-Con M20] 20 mEq Tablet,Er Particles/Crystals 20 meq PO DAILY 30 Days Qty: 30 0RF Vitamin 27 mg iron- 800 mcg Tablet 1 tab PO 1700 30 Days Qty: 30 0RF polyethylene glycol 3350 [Miralax] 17 gram Powder In Packet 17 g PO BID 30 Days Qty: 524 0RF Referrals Follow up/Referrals: Meagan Hagan [Primary Care Provider] - See instructions Clinical Impressions Clinical Impression: Cellulitis of left lower extremity, Cirrhosis, Acute deep vein thrombosis of proximal end of both lower extremities Instructions Patient Instructions: DI for Skin Abscess Discharge ED Provider: Lonnie Cornejo General Adult HPI General Chief complaint: Skin/Abscess/Foreign Body Stated complaint: cellulitus in Fractured L hip Time Seen by Provider: 11/20/23 14:37 History of Present Illness HPI narrative: Patient is a 62-year-old female who presents for evaluation of left hip pain and redness. Patient has past medical history of previous traumatic injury leaving her chronically wheelchair-bound, chronic lymphedema, cirrhosis, ongoing alcohol use and most recently suffered a fall from her wheelchair in September that resulted in a nondisplaced left acetabular fracture. It was a nonoperative fracture and has been managed since that time. Patient normally lives independently and has an adapted home. She presents today for increasing redness and pain about the left hip. Patient denies any additional trauma or falls. She currently denies chest pain shortness of breath subjective fever chills hemoptysis hematochezia melena nausea vomiting diarrhea. Related Data Home Medications Medication Instructions Recorded Confirmed aripiprazole 2 mg tablet 2 mg PO HS 05/23/22 10/15/23 ropinirole 0.5 mg tablet 0.5 mg PO TID PRN Restless Legs 05/23/22 10/15/23 ascorbic acid (vitamin C) 500 mg 500 mg PO DAILY 09/24/23 10/15/23 tablet calcium carbonate 600 mg-vitamin 1 tab PO DAILY 09/24/23 10/15/23 D3 10 mcg (400 unit) tablet (Calcium 600 + D(3)) cholecalciferol (vitamin D3) 125 250 mcg PO DAILY 09/24/23 10/15/23 mcg (5,000 unit) tablet (Vitamin D3) cyclobenzaprine 10 mg tablet 10 mg PO TID PRN Musle spasms 09/24/23 10/15/23 esomeprazole magnesium 40 mg 40 mg PO DAILY 09/24/23 10/15/23 capsule,delayed release ferrous sulfate 325 mg (65 mg 325 mg PO PM 09/24/23 10/15/23 iron) tablet (FeroSul) levothyroxine 125 mcg tablet 125 mcg PO DAILY 09/24/23 10/15/23 (Synthroid) magnesium 250 mg tablet 250 mg PO DAILY 09/24/23 10/15/23 spironolactone 25 mg tablet 25 mg PO BIDP PRN Blood Pressure 09/24/23 10/15/23 venlafaxine 75 mg capsule,extended 75 mg PO HS 09/24/23 10/15/23 release 24 hr Previous Rx's Medication Instructions Recorded furosemide 40 mg tablet 40 mg PO DAILY 30 days #30 tabs 09/25/23 hydrocodone 5 mg-acetaminophen 325 1 tab PO Q6H PRN pain 3 days #12 09/25/23 mg tablet tabs nystatin 100,000 unit/gram topical 1 applic topical QID 10 days #30 09/25/23 powder grams polyethylene glycol 3350 17 gram 17 g PO BID 30 days #524 grams 10/09/23 oral powder packet (Miralax) potassium chloride 20 mEq 20 meq PO DAILY 30 days #30 tabs 10/09/23 tablet,extended release(part/cryst) (Klor-Con M) vits no.130-ferrous fum 1 tab PO 1700 30 days #30 tabs 10/09/23 27 mg iron-folic acid 800 mcg tablet ( Vitamin) rifaximin 550 mg tablet (Xifaxan) 550 mg PO BID 30 days #60 tabs 10/09/23 Allergies Allergy/AdvReac Type Severity Reaction Status Date / Time tizanidine Allergy Mild Verified 09/24/23 23:17 [facility] Disclaimer: The information contained in this section may have been updated after the patient was seen, as this information can be updated by other users. Medical History Anemia Anxiety Cerebellar disorder Chronic diarrhea Chronic pain Depression HTN (hypertension) Hypothyroidism Lymphedema Peptic ulcer Surgical History H/O laminectomy H/O left knee surgery H/O shoulder surgery Family History (Updated 10/05/23 @ 18:18 by Selene Cruz, RN) Other Family history of hypertension Social History (Updated 10/05/23 @ 18:18 by Selene Cruz RN) Smoking Status: Never smoker alcohol intake: never current occupational status: other Travel in the last 8 weeks: None ROS Obtained: Yes Systems reviewed as appropriate & no additional complaints except as documented Physical Exam General General appearance: alert and in no apparent distress Head Head exam: atraumatic and normal inspection Eye Eye exam: Present normal appearance, PERRL and EOMI ENT ENT exam: Present normal exam, normal oropharynx and mucous membranes moist Neck Neck exam: Present normal inspection and full ROM; Absent lymphadenopathy Chest Chest inspection: Present normal inspection and symmetric chest wall rise Respiratory Respiratory exam: Present normal lung sounds bilaterally; Absent respiratory distress or accessory muscle use Cardiovascular Cardiovascular exam: Present regular rate, normal rhythm and normal heart sounds Abdominal Exam Abdominal exam: Present soft (Obese) and normal bowel sounds; Absent tenderness, guarding or rebound Extremities Exam Extremities exam: Present normal inspection and other (The bilateral upper extremities are intact grossly to exam with full range of motion in the bilateral lower extremities are flaccid with muscle wasting and chronic lymphedema with compression stockings on. Lower extremities are warm to touch and skin is pink) Neurological Exam Neurological exam: Present alert, oriented X3 and CN II-XII intact Psychiatric Psychiatric exam: Present normal affect and normal mood Skin Skin exam: Present warm, dry and normal color Expanded Skin Exam Body image: 2 1. 2. 3. 4. Comment: Patient has dense cellulitis over the lateral aspect of her left thigh mostly centered over the greater trochanter and femoral prominence with near circumferential erythema extending to approximately mid thigh distally to the inguinal crease proximally to the cleft posteriorly and across the low back/flank to the right side. There is no fluctuance. There is no visible break in skin. It is exquisitely tender to palpation over the left greater trochanter. Lymphatic Lymphatic Findings: no adenopathy Medical Decision Making Medical Records Medical records reviewed: Yes I reviewed the patient's medical records. Get Inquiry Pt receiving controlled substance: No Vital Signs: 11/20/23 14:29 11/20/23 14:46 11/20/23 15:30 Temperature 98.6 F Temperature Source Oral Pulse Rate 81 86 Pulse Rate [Left] 95 H Respiratory Rate 18 Blood Pressure 136/69 116/89 Blood Pressure [Right Arm] 136/69 Blood Pressure Mean [Right Arm] 91 Blood Pressure Source [Right Arm] Automatic Cuff Blood Pressure Position [Right Arm] Sitting 02 Sat by Pulse Oximetry 98 99 98 Oxygen Delivery Method Room Air Room Air Room Air 11/20/23 15:50 11/20/23 17:30 11/20/23 18:01 Temperature Temperature Source Pulse Rate 97 H 101 H 104 H Pulse Rate [Left] Respiratory Rate Blood Pressure 134/77 96/66 L 115/91 H Blood Pressure [Right Arm] Blood Pressure Mean [Right Arm] Blood Pressure Source [Right Arm] Blood Pressure Position [Right Arm] 02 Sat by Pulse Oximetry 98 98 95 Oxygen Delivery Method Room Air Room Air Lab Data Lab results reviewed: Yes I reviewed the patient's lab results. Lab Results 11/20/23 15:20: WBC 10.6, RBC 3.89 L, Hgb 12.8, Hct 40.5, MCV 104.0 H, MCH 33.0 H, MCHC 31.7 L, RDW 15.0, Plt Count 105 L, MPV 8.1, Neut % (Auto) 80.7 H, Lymph % (Auto) 14.4, [place] % (Auto) 3.0, Eos % (Auto) 1.2, Baso % (Auto) 0.7, Neut # (Auto) 8.6 H, Lymph # (Auto) 1.5, [place] # (Auto) 0.3, Eos # (Auto) 0.1, Baso # (Auto) 0.1, PT 14.6 H, INR 1.38 H, D-Dimer 0.46, Sodium 136, Potassium 4.0, Chloride 102, Carbon Dioxide 27, Anion Gap 11.0, BUN 8, Creatinine 0.40 L, Estimated Creat Clear 76, Estimated GFR 161, Est GFR ( Amer) 195, Glucose 154 H, Lactate 2.2 H, Calcium 8.7, Magnesium 1.9, Total Bilirubin 2.1 H, AST 68 H, ALT 47, Alkaline Phosphatase 235 H, Total Protein 7.0, Albumin 3.6, Globulin 3.4 H, Albumin/Globulin Ratio 1.1, Procalcitonin 0.137 11/20/23 19:50: Lactate 1.1 11/20/23 15:20 11/20/23 15:20 Orders (Tests/Meds): ED MEDICATIONS Generic Name Dose Route Start Last Admin Trade Name Freq PRN Reason Stop Dose Admin Piperacillin Sod/Tazobactam 50 mls @ 100 mls/hr 11/20/23 15:15 11/20/23 15:54 Sod 3.375 gm/ Sodium Chloride IV 11/30/23 15:14 100 mls/hr Q6H MAINE Administration Sodium Chloride 10 ml 11/20/23 17:04 11/20/23 17:05 Sodium Chloride 0.9% 10ml Syr (Rad Only) IV 12/20/23 17:03 10 ml NEEDED PRN Administration Maintain IV Site Discontinued Medications Generic Name Dose Route Start Last Admin Trade Name Freq PRN Reason Stop Dose Admin Acetaminophen 1,000 mg 11/20/23 15:04 11/20/23 15:46 Acetaminophen 1,000mg/100ml Vial IV 11/20/23 15:05 1,000 mg ONCE ONE Administration Hydromorphone HCl 1 mg 11/20/23 19:34 11/20/23 19:42 Hydromorphone 2mg/Ml Syringe IV 11/20/23 19:35 1 mg ONCE ONE Administration Lactated Ringer's 1,000 mls @ 999 mls/hr 11/20/23 15:04 11/20/23 15:59 Lactated Ringer's 1000 Ml Bag IV 11/20/23 16:04 999 mls/hr .Q1H1M ONE Administration Vancomycin/PEG/NADA/Lysine/Water 1.5 gm in 300 mls @ 150 mls/hr 11/20/23 15:15 11/20/23 17:34 Vancomycin 1.5gm/300ml (Peg) Premix IV 11/20/23 17:14 150 mls/hr ONCE ONE Administration Iopamidol 120 ml 11/20/23 17:04 11/20/23 17:05 Iopamidol-370 (76%);100ml Bottle IV 11/20/23 17:05 120 ml ONCE ONE Administration Ketorolac Tromethamine 15 mg 11/20/23 15:04 11/20/23 15:47 Ketorolac 30mg/Ml Vial IV 11/20/23 15:05 15 mg ONCE ONE Administration Miscellaneous 1 each 11/20/23 15:15 Vancomycin Consult Request NOTAPPLIC 12/20/23 15:14 CONSULT [facility]Y [facility] Morphine Sulfate 2 mg 11/20/23 15:04 11/20/23 15:47 Morphine 2mg/Ml Syringe IV 11/20/23 15:05 2 mg ONCE ONE Administration Sodium Chloride 100 ml 11/20/23 17:04 11/20/23 17:05 0.9 % Sodium Chloride 50 Ml Vial IV 11/20/23 17:05 100 ml ONCE ONE Administration ORDERS Category Date Time Status CT angio abdomen/femoral Stat Cat Scan 11/20/23 15:04 Completed CBC w/Auto Diff [Complete Blood Count Auto Diff] Stat Lab 11/20/23 15:20 Completed CMP [Comprehensive Metabolic Panel] Stat Lab 11/20/23 15:20 Completed D-Dimer Stat Lab 11/20/23 15:20 Completed INR [Prothrombin Time INR] Stat Lab 11/20/23 15:20 Completed Lactic Acid Follow Up (RFLX 1) Stat Lab 11/20/23 19:50 Completed Lactic Acid Stat Lab 11/20/23 15:20 Completed Magnesium Stat Lab 11/20/23 15:20 Completed Procalcitonin Stat Lab 11/20/23 15:20 Completed Blood Culture Stat Micro 11/20/23 15:45 Received CA venous doppler LE LT Stat Y 11/20/23 15:04 Completed Medical Decision Narrative: In summary patient is a 62-year-old female who presents to the emergency department for evaluation of cellulitis of her left hip. Patient is hemodynamically stable upon arrival, and afebrile currently. Physical exam shows dense cellulitis over the lateral aspect of her left hip centered around the greater trochanter with erythema spreading distally and across her low back. She is only tender to palpation however at the greater trochanter. Her main of her physical exam is unremarkable from her normal baseline. Differential diagnosis includes abscess versus fracture versus cellulitis versus possible DVT. Initial workup will be conducted with hematologic labs CT scan and duplex Doppler of left lower extremity. Initial interventions include crystalloid, acetaminophen Toradol and Dilaudid. Initial workup reviewed by me normal white count with no shift, and elevated procalcitonin, a D-dimer of 0.42, the remainder of her laboratory investigations are nonactionable. My informal interpretation CTA abdomen pelvis shows questionable bilateral proximal femoral DVTs but no abscess formation in the left lateral thigh although radiologist read is pending. Upon repeat evaluation did have response to her pain with fluids NSAIDs and opiates. Given this I discussed the patient with our hospitalist team who felt that due to the complexity of the patient she would require the involvement of special services that are not available inpatient here specifically hematology oncology and gastroenterology. Therefore I have made inquiries to several facilities and I am awaiting phone calls back at 1930. At [address] Artis at [facility] who is graciously accepted the patient in transfer. Critical Care Critical Care Time Critical Care Time: Yes Attestation: On 11/20/23, the high probability of a clinically significant, sudden or life threatening deterioration of the following system(s) required my full and direct attention, intervention and personal management. The time I documented below is in addition to time spent performing reported procedures but includes the following listed in this critical care notation. Total Time Total Critical Care Time: 30
--- NOTE | 2023-11-20 15:04 | CT_ITS ---
PROCEDURE INFORMATION: Exam: CTA Abdominal Aorta and Bilateral Lower Extremities (Run-off) With Contrast Exam date and time: 11/20/2023 3:33 PM Age: 62 years old Clinical indication: Other: Thigh pain; Additional info: Cellulitis left lower extremity, acute pain, known TECHNIQUE: Imaging protocol: Computed tomographic angiography of the of the abdominal aorta, pelvis and bilateral lower extremities with contrast. 3D rendering (Not supervised by radiologist): MIP and/or 3D reconstructed images were created by the technologist. Radiation optimization: All CT scans at this facility use at least one of these dose optimization techniques: automated exposure control; mA and/or kV adjustment per patient size (includes targeted exams where dose is matched to clinical indication); or iterative reconstruction. Contrast material: ISOVUE; Contrast volume: 120 ml; Contrast route: INTRAVENOUS (IV); COMPARISON: CT ANGIO ABDOMEN PELVIS 09/24/2023 5:59 PM FINDINGS: Aorta: Scattered regions of atherosclerotic vascular calcification within the abdominal aorta and common iliac arteries. Celiac trunk and mesenteric arteries: No occlusion or significant stenosis. Renal arteries: No occlusion or significant stenosis. Right iliac arteries: No occlusion or significant stenosis. Right femoral/popliteal arteries: Mild stenosis right popliteal artery Right infrapopliteal arteries: No occlusion or significant stenosis. Left iliac arteries: No occlusion or significant stenosis. Left femoral/popliteal arteries: No occlusion or significant stenosis. Left infrapopliteal arteries: No occlusion or significant stenosis. Veins: Recannulization of the umbilical vein. Non opacification of the right common femoral vein. Heterogeneous opacification left common femoral vein. Findings suggest bilateral deep vein thrombosis. Heterogeneous opacification of the right popliteal vein. Findings suspicious for thrombus. Liver: Cirrhosis Gallbladder and bile ducts: Cholelithiasis Pancreas: Persistent mild dilatation of the pancreatic duct. Spleen: Splenomegaly. Splenic granulomas Adrenal glands: Adrenal glands unremarkable. Kidneys and ureters: No hydronephrosis. Stomach and bowel: Mild-moderate stool burden Appendix: No evidence of appendicitis. Urinary bladder: Unremarkable. No mass. Reproductive: Unremarkable as visualized. Intraperitoneal space: Unremarkable. No free air. No significant fluid collection. Lymph nodes: No lymphadenopathy. Bones/joints: Lumbar spondylosis. Mild compression fracture deformity most likely chronic L2, L3. Nondisplaced fracture posterior left acetabular rim unchanged Soft tissues: Regions of subcutaneous edema involving the left calf. Anasarca. Persistent umbilical hernia containing a small bowel loop with small amount of ascites. This is decreased in size compared with the previous study. Other findings: Findings demonstrated on series 5, image number 154. IMPRESSION: 1. Non opacification of the right common femoral vein. Heterogeneous opacification left common femoral vein. Findings suggest bilateral deep vein thrombosis. 2. A call has been placed to the referring physician at which time an addended report will be issued.
--- NOTE | 2023-11-20 15:04 | CA_ITS ---
FINAL REPORT TECHNIQUE: Color Doppler, duplex Doppler and compression sonography of the left lower extremity deep venous systems was performed. Please note that this was a technically difficult study. CLINICAL HISTORY: Left femur fracture, cellulitis, pain, redness,edema FINDINGS: There is no evidence of deep venous thrombosis from the level of the groin to the calf. The veins are patent and compressible. IMPRESSION: No evidence of deep venous thrombosis left lower extremity. Authenticated and ERN
[2023-11-20 15:37] LABS: Basophils # 0.1 K/mm3 (0-0.2); Basophils % 0.7 % (0.1-2.0); Eosinophils # 0.1 K/mm3 (0.0-0.4); Eosinophils % 1.2 % (0.1-12.0); Hematocrit 40.5 % (37.0-47.0); Hemoglobin 12.8 g/dL (12.2-16.2); Lymphocytes # 1.5 K/mm3 (0.7-4.5); Lymphocytes % 14.4 % (10-50); Mean Corpuscular HGB Conc 31.7 g/dL (31.8-35.4); Mean Platelet Volume 8.1 fl (7.4-10.4); Monocytes # 0.3 K/mm3 (0.1-1.0); Neutrophils # 8.6 K/mm3 (1.8-7.8); Neutrophils % 80.7 % (37.0-80.0); Platelet Count 105 K/mm3 (142-424); Red Blood Count 3.89 M/mm3 (4.20-5.40); White Blood Count 10.6 K/mm3 (4.8-10.8)
[2023-11-20 15:46] LABS: INR 1.38 (0.9-1.1); Prothrombin Time 14.6 seconds (10.1-12.5)
[2023-11-20] MEDS: ACETAMINOPHEN 1,000MG/100ML VIAL 1000 MG IV (15:46)
[2023-11-20] MEDS: KETOROLAC 30MG/ML VIAL 15 MG IV (15:47)
[2023-11-20] MEDS: MORPHINE 2MG/ML SYRINGE 2 MG IV (15:47)
[2023-11-20 15:52] LABS: Alanine Aminotransferase 47 U/L (12-78); Albumin Level 3.6 g/dl (3.5-5.0); Albumin/Globulin Ratio 1.1 (1.1-1.8); Alkaline Phosphatase 235 U/L (38-126); Aspartate Amino Transferase 68 U/L (14-36); Bilirubin,Total 2.1 mg/dl (0.2-1.3); Blood Urea Nitrogen 8 mg/dl (7-17); Calcium 8.7 mg/dl (8.4-10.2); Carbon Dioxide 27 mmol/L (22.0-30.0); Chloride 102 mmol/L (98-107); Creatinine Clearance Estimated 76 mL/min (50-200); Estimated Glomerular Filt Rate 161 ml/min (>60); GFR (African American) 195 ML/MIN (>60); Globulin 3.4 g/dL (1.3-3.2); Glucose 154 mg/dl (74-100); Magnesium 1.9 mg/dl (1.6-2.3); Sodium 136 mmol/L (136-145)
[2023-11-20 15:54] LABS: Lactic Acid 2.2 mmol/L (0.7-2.1)
[2023-11-20] MEDS: PIPERCILLIN/TAZO 3.375 GM in 0.9 % SODIUM CHLORIDE 50 ML IV (15:54)
[2023-11-20 15:57] LABS: D-Dimer 0.46 ug/mL (0.0-0.5)
[2023-11-20] MEDS: LACTATED RINGERS 1000ML 1,000 ML 999 ML IV (15:59)
[2023-11-20 16:10] LABS: Procalcitonin 0.137 ng/mL (0.0-2.0)
[2023-11-20] MEDS: IOPAMIDOL-370 (76%);100ML BOTTLE 120 ML IV (17:05)
[2023-11-20] MEDS: 0.9 % SODIUM CHLORIDE 50 ML VIAL 100 ML IV (17:05)
[2023-11-20] MEDS: SODIUM CHLORIDE 0.9% 10ML SYR (RAD ONLY) 10 ML IV (17:05)
--- NOTE | 2023-11-20 17:28 | PC.NURSE ---
I rounded on the pt and took her a warm blanket. the pure wick leaked minimally. She requested a pad under her knees rather than change the whole bed.
[2023-11-20] MEDS: VANCOMYCIN/WATER FOR INJ (PEG) 1.5 GM/300 ML PIGGYBACK IV (17:34)
--- NOTE | 2023-11-20 17:58 | PC.NURSE ---
Rounded on the pt, took her a few ice chips.
--- NOTE | 2023-11-20 18:08 | PC.NURSE ---
radiology states that they are reading the scans at this time. aware
--- NOTE | 2023-11-20 18:51 | PC.NURSE ---
Called [facility] for transfer
--- NOTE | 2023-11-20 19:06 | PC.NURSE ---
MAI SPEAKING WITH AT [facility]
--- NOTE | 2023-11-20 19:18 | PC.NURSE ---
pt rang out requesting pain meds, RN informed
[2023-11-20 19:33] LABS: Reflex Lactic Add Lactic Reflex
--- NOTE | 2023-11-20 19:37 | INFXCTL.NOTE ---
Call from [facility] with bed assignment, Dr. Estrada asked that we call them back once we here from [facility],
[2023-11-20] MEDS: HYDROMORPHONE 2MG/ML SYRINGE 1 MG IV (19:42)
--- NOTE | 2023-11-20 19:42 | PC.NURSE ---
call placed to [facility].
--- NOTE | 2023-11-20 19:52 | PC.NURSE ---
spoke with tee at the transfer center.
--- NOTE | 2023-11-20 19:53 | PC.NURSE ---
Patient watching personal ipad. Reported pain at 8/10 before medication administration. Call light within reach, turned off light per patient preference, bed low and locked, no further needs expressed at this time.
--- NOTE | 2023-11-20 20:00 | PC.NURSE ---
[facility] called back with bed assignment
[2023-11-20 20:12] LABS: Lactic Acid Follow Up (RFLX 1) 1.1 mmol/L (0.7-2.1)
--- NOTE | 2023-11-20 20:15 | PC.NURSE ---
notified [facility] that patient has chosen to go to [facility] in [place]
--- NOTE | 2023-11-20 20:54 | PC.NURSE ---
Transfer center called with bed assignement for [facility]. Patient will be admitted to [facility] bed 121, accepting provider Dr. Shahram Parrish. Call report to [phone]
--- NOTE | 2023-11-20 21:20 | PC.NURSE ---
Nurse to nurse report given to Radha Dodd RN
--- NOTE | 2023-11-20 21:22 | PC.NURSE ---
Called EMS about transfer of the pt to [facility]. No answer at the station. Will call again in a few mins. CR
--- NOTE | 2023-11-20 21:26 | PC.NURSE ---
attempted to reach [facility] no answer
--- NOTE | 2023-11-20 22:13 | PC.NURSE ---
Cleaned wet pads beneath patient from a purewick leak. Provided amelia care. Pulled patient up in the bed. Turned up heat, assisted patient in gathering all personal belongings together for transfer. No further needs expressed at this time.
== END 2023-11-20 22:27 | disposition other institution (70) ==
PROVIDERS: Physician Assistant; Emergency Provider Emergency Medicine; PCP Family Medicine
DX: I82.411 Acute embolism and thrombosis of right femoral vein (principal); I82.412 Acute embolism and thrombosis of left femoral vein; L03.116 Cellulitis of left lower limb; K74.60 Unspecified cirrhosis of liver
CPT/HCPCS: 36415; 75635; 80053; 83605; 83735; 84145; 85025; 85378; 85610; 87040; 93971; 96361; 96365; 96366; 96375; 99291; J0131; J2543; Q9967

== ENCOUNTER 2024-01-22 10:48 | Emergency (ER) | payer MEDICARE, OTHER, SELFPAY ==
[2024-01-22 10:50] VITALS: BP 115/63; PULSE 77; RESP 20; TEMP 37.1; O2SAT 99; BMI 30.1
--- NOTE | 2024-01-22 11:02 | HMH.EDGENADL ---
Discharge Plan Disposition Patient Disposition: Home, Self-Care Condition: Good Prescriptions Prescriptions: New sulfamethoxazole-trimethoprim [Bactrim DS] 800-160 mg tablet 1 tab PO BID 10 Days Qty: 20 0RF No Action cyclobenzaprine 10 mg tablet 10 mg PO TID PRN (Reason: Musle spasms) venlafaxine 75 mg capsule,extended release 24hr 75 mg PO HS Rx Instructions: TAKES WITH 150 MG DOSE HS. spironolactone 25 mg tablet 25 mg PO BIDP PRN (Reason: Blood Pressure) ferrous sulfate [FeroSul] 325 mg (65 mg iron) tablet 325 mg PO PM Patient Comments: TAKE 1 TABLET BY MOUTH EVERY DAY AT DINNER esomeprazole magnesium 40 mg capsule,delayed release(DR/EC) 40 mg PO DAILY levothyroxine [Synthroid] 125 mcg Tablet 125 mcg PO DAILY ascorbic acid (vitamin C) 500 mg Tablet 500 mg PO DAILY magnesium 250 mg Tablet 250 mg PO DAILY calcium carbonate-vitamin D3 [Calcium 600 + D(3)] 600 mg-10 mcg (400 unit) Tablet 1 tab PO DAILY cholecalciferol (vitamin D3) [Vitamin D3] 125 mcg (5,000 unit) Tablet 250 mcg PO DAILY nystatin 100,000 unit/gram Powder 1 applic topical QID 10 Days Qty: 30 0RF furosemide 40 mg tablet 40 mg PO DAILY 30 Days Qty: 30 0RF hydrocodone-acetaminophen 5-325 mg tablet 1 tab PO Q6H PRN (Reason: pain) 3 Days Qty: 12 0RF aripiprazole 2 mg Tablet 2 mg PO HS ropinirole 0.5 mg Tablet 0.5 mg PO TID PRN (Reason: Restless Legs) Xifaxan 550 mg Tablet 550 mg PO BID 30 Days Qty: 60 1RF potassium chloride [Klor-Con M20] 20 mEq Tablet,Er Particles/Crystals 20 meq PO DAILY 30 Days Qty: 30 0RF Vitamin 27 mg iron- 800 mcg Tablet 1 tab PO 1700 30 Days Qty: 30 0RF polyethylene glycol 3350 [Miralax] 17 gram Powder In Packet 17 g PO BID 30 Days Qty: 524 0RF Referrals Follow up/Referrals: Meagan Hagan [Primary Care Provider] - See instructions Activity Restrictions/Add. Instructions Additional Instructions/Restrictions: You were evaluated in the emergency department today. Please keep your wound clean and dry. I recommend keeping the pressure dressing in place for at least 24 hours. I recommend keeping a protective bandage over it until it is healed. Do not submerge under any water. Please hop picker your prescription for antibiotics and take the full course as prescribed. Return to the emergency department for new or worsening symptoms. Follow-up with your primary care provider over the next week for reassessment. Clinical Impressions Clinical Impression: Traumatic hematoma of left hand with infection Instructions Patient Instructions: DI for Hematoma (Bruise), DI for Skin Abscess Discharge ED Provider: Adelita Vera General Adult HPI General Chief complaint: Skin/Abscess/Foreign Body Stated complaint: left hand thumb infected Time Seen by Provider: 01/22/24 11:01 History of Present Illness HPI narrative: This patient is a 63-year-old female with a history of hypertension, cirrhosis, lymphedema, and wheelchair dependence presenting to the emergency department for evaluation with concern for hematoma to the left hand. Patient reports that 2 weeks ago, she pinched the skin of her left thenar eminence in her wheelchair while trying to push the brake, and she developed a little hematoma. She states that it opened up about a week ago and started oozing blood. Since then, it has been intermittently oozing blood, and it also has become more painful, red, and warm around the area. No other concerns noted at this time. No fevers, chills, limited range of motion, or other issues. Related Data Home Medications Medication Instructions Recorded Confirmed aripiprazole 2 mg tablet 2 mg PO HS 05/23/22 10/15/23 ropinirole 0.5 mg tablet 0.5 mg PO TID PRN Restless Legs 05/23/22 10/15/23 ascorbic acid (vitamin C) 500 mg 500 mg PO DAILY 09/24/23 10/15/23 tablet calcium carbonate 600 mg-vitamin 1 tab PO DAILY 09/24/23 10/15/23 D3 10 mcg (400 unit) tablet (Calcium 600 + D(3)) cholecalciferol (vitamin D3) 125 250 mcg PO DAILY 09/24/23 10/15/23 mcg (5,000 unit) tablet (Vitamin D3) cyclobenzaprine 10 mg tablet 10 mg PO TID PRN Musle spasms 09/24/23 10/15/23 esomeprazole magnesium 40 mg 40 mg PO DAILY 09/24/23 10/15/23 capsule,delayed release ferrous sulfate 325 mg (65 mg 325 mg PO PM 09/24/23 10/15/23 iron) tablet (FeroSul) levothyroxine 125 mcg tablet 125 mcg PO DAILY 09/24/23 10/15/23 (Synthroid) magnesium 250 mg tablet 250 mg PO DAILY 09/24/23 10/15/23 spironolactone 25 mg tablet 25 mg PO BIDP PRN Blood Pressure 09/24/23 10/15/23 venlafaxine 75 mg capsule,extended 75 mg PO HS 09/24/23 10/15/23 release 24 hr Previous Rx's Medication Instructions Recorded furosemide 40 mg tablet 40 mg PO DAILY 30 days #30 tabs 09/25/23 hydrocodone 5 mg-acetaminophen 325 1 tab PO Q6H PRN pain 3 days #12 09/25/23 mg tablet tabs nystatin 100,000 unit/gram topical 1 applic topical QID 10 days #30 09/25/23 powder grams polyethylene glycol 3350 17 gram 17 g PO BID 30 days #524 grams 10/09/23 oral powder packet (Miralax) potassium chloride 20 mEq 20 meq PO DAILY 30 days #30 tabs 10/09/23 tablet,extended release(part/cryst) (Klor-Con M) vits no.130-ferrous fum 1 tab PO 1700 30 days #30 tabs 10/09/23 27 mg iron-folic acid 800 mcg tablet ( Vitamin) rifaximin 550 mg tablet (Xifaxan) 550 mg PO BID 30 days #60 tabs 10/09/23 sulfamethoxazole 800 1 tab PO BID 10 days #20 tabs 01/22/24 mg-trimethoprim 160 mg tablet (Bactrim DS) Allergies Allergy/AdvReac Type Severity Reaction Status Date / Time tizanidine Allergy Mild Verified 09/24/23 23:17 [facility] Disclaimer: The information contained in this section may have been updated after the patient was seen, as this information can be updated by other users. Medical History Anemia Peptic ulcer Cerebellar disorder Lymphedema Hypothyroidism Chronic pain Anxiety Depression HTN (hypertension) Chronic diarrhea Surgical History H/O laminectomy H/O shoulder surgery H/O left knee surgery Family History Other Family history of hypertension Social History Smoking Status: Never smoker alcohol intake: never current occupational status: other Travel in the last 8 weeks: None ROS Obtained: Yes All systems reviewed & no additional complaints except as documented Physical Exam General General appearance: alert and in no apparent distress Head Head exam: atraumatic and normocephalic Eye Eye exam: Present normal appearance, PERRL and EOMI ENT ENT exam: Present normal exam, normal oropharynx, mucous membranes moist and normal external ear exam Neck Neck exam: Present normal inspection, full ROM and trachea midline; Absent tenderness Chest Chest inspection: Present normal inspection and symmetric chest wall rise; Absent tenderness Respiratory Respiratory exam: Present normal lung sounds bilaterally; Absent respiratory distress, wheezes, stridor or accessory muscle use Cardiovascular Cardiovascular exam: Present regular rate and normal rhythm Abdominal Exam Abdominal exam: Present soft; Absent distention, tenderness or guarding Extremities Exam Extremities exam: Present full ROM and normal capillary refill; Absent tenderness or edema Expanded Upper Extremity Exam Left: Hand L/R front image: 1. other (2 cm hematoma with surrounding erythema and warmth) Back Exam Back exam: Present normal inspection and full ROM; Absent tenderness Neurological Exam Neurological exam: Present alert, oriented X3 and CN II-XII intact; Absent motor sensory deficit Psychiatric Psychiatric exam: Present normal affect and normal mood Skin Skin exam: Present warm and dry Medical Decision Making Medical Records Medical records reviewed: Yes I reviewed the patient's medical records. Get Inquiry Pt receiving controlled substance: No Vital Signs: 01/22/24 10:50 01/22/24 11:31 01/22/24 12:00 Temperature 98.7 F Temperature Source Oral Pulse Rate 75 78 Pulse Rate [Right Radial] 77 Respiratory Rate 20 16 16 Blood Pressure 102/59 L 110/57 L Blood Pressure [Right Arm] 115/63 Blood Pressure Mean 77 78 Blood Pressure Mean [Right Arm] 80 Blood Pressure Source [Right Arm] Automatic Cuff Blood Pressure Position [Right Arm] Sitting 02 Sat by Pulse Oximetry 99 98 98 Oxygen Delivery Method Room Air 01/22/24 12:20 Temperature 98.6 F Temperature Source Oral Pulse Rate 78 Pulse Rate [Right Radial] Respiratory Rate 18 Blood Pressure 110/57 L Blood Pressure [Right Arm] Blood Pressure Mean Blood Pressure Mean [Right Arm] Blood Pressure Source [Right Arm] Blood Pressure Position [Right Arm] 02 Sat by Pulse Oximetry Oxygen Delivery Method Room Air Lab Data Lab results reviewed: Yes I reviewed the patient's lab results. Orders (Tests/Meds): ED MEDICATIONS Discontinued Medications Generic Name Dose Route Start Last Admin Trade Name Sarwat PRN Reason Stop Dose Admin Lidocaine HCl 20 ml 01/22/24 11:26 01/22/24 11:33 Lidocaine 1% 20ml Mdv IJ 01/22/24 11:27 20 ml ONCE ONE Administration Medical Decision Narrative: In summary, this patient is a 63 year old female presenting to the Emergency Department for evaluation of hematoma to L hand that she is concerned is infected. Differential diagnoses considered include but are not limited to hematoma, cellulitis, abscess, infected hematoma. Ruling out the most morbid conditions drove assessment. It should be noted patient's history includes cirrhosis which may or may not be at goal therapy. This complicates all aspects of care by increasing patient's risk for morbidity. On exam, the patient is resting comfortably in no acute distress. She has a hematoma to her left thenar eminence with mild surrounding erythema and warmth. This is concerning for infected hematoma. Patient has no significant swelling, limitations range of motion, numbness, tingling, or other concerns that would suggest deep space infection. She has intact range of motion and is neurovascularly intact distally. After informed consent was obtained, decision was made to drain hematoma. After incision and drainage of blood from the hematoma, patient had some continued oozing for which a pressure dressing was placed. No pulsatile bleeding or concern for arterial bleed. Patient tolerated pressure dressing well and was neurovascularly intact after dressing was placed. She also had no bleeding through the dressing. Given this, I feel that she is appropriate for discharge home. She was given prescription for oral Bactrim given concern for infected hematoma. She was also given instructions to keep the pressure dressing in place for 24 hours as well as instructions for wound care and close outpatient follow-up. She was discharged with very strict return precautions after all questions were answered. Procedures Abscess I/D Site: hand Side (if applicable): left Sedation/analgesia: none Technique: incised with #11 blade (tiny stab incision) Amount of fluid expressed (mL): 10 Irrigation: Yes Packing used?: none Complications: bleeding (minor oozing, for which dressing was placed. No significant complication.) Critical Care Critical Care Time Critical Care Time: No
[2024-01-22 11:31] VITALS: BP 102/59; PULSE 75; RESP 16; O2SAT 98
[2024-01-22] MEDS: LIDOCAINE 1% 20ML MDV 20 ML IJ (11:33)
[2024-01-22 12:00] VITALS: BP 110/57; PULSE 78; RESP 16; O2SAT 98
[2024-01-22 12:20] VITALS: BP 110/57; PULSE 78; RESP 18; TEMP 37; O2SAT 95
== END 2024-01-22 12:27 | disposition home or self-care (01) ==
PROVIDERS: Emergency Provider Emergency Medicine; PCP Family Medicine
DX: S60.222A Contusion of left hand, initial encounter (principal); L08.9 Local infection of the skin and subcutaneous tissue, unspecified; W23.0XXA Caught, crushed, jammed, or pinched between moving objects, initial encounter
CPT/HCPCS: 10140; 99283

== ENCOUNTER 2024-01-25 11:41 | Emergency (ER) | payer MEDICARE, OTHER, SELFPAY ==
[2024-01-25 11:43] VITALS: BP 132/48; PULSE 70; RESP 18; TEMP 36.7; O2SAT 100; BMI 28.3
--- NOTE | 2024-01-25 12:30 | HMH.EDGENADL ---
Discharge Plan Disposition Chief Complaint: Skin/Abscess/Foreign Body Prescriptions Prescriptions: No Action cyclobenzaprine 10 mg tablet 10 mg PO TID PRN (Reason: Musle spasms) venlafaxine 75 mg capsule,extended release 24hr 75 mg PO HS Rx Instructions: TAKES WITH 150 MG DOSE HS. spironolactone 25 mg tablet 25 mg PO BIDP PRN (Reason: Blood Pressure) ferrous sulfate [FeroSul] 325 mg (65 mg iron) tablet 325 mg PO PM Patient Comments: TAKE 1 TABLET BY MOUTH EVERY DAY AT DINNER esomeprazole magnesium 40 mg capsule,delayed release(DR/EC) 40 mg PO DAILY levothyroxine [Synthroid] 125 mcg Tablet 125 mcg PO DAILY ascorbic acid (vitamin C) 500 mg Tablet 500 mg PO DAILY magnesium 250 mg Tablet 250 mg PO DAILY calcium carbonate-vitamin D3 [Calcium 600 + D(3)] 600 mg-10 mcg (400 unit) Tablet 1 tab PO DAILY cholecalciferol (vitamin D3) [Vitamin D3] 125 mcg (5,000 unit) Tablet 250 mcg PO DAILY nystatin 100,000 unit/gram Powder 1 applic topical QID 10 Days Qty: 30 0RF furosemide 40 mg tablet 40 mg PO DAILY 30 Days Qty: 30 0RF hydrocodone-acetaminophen 5-325 mg tablet 1 tab PO Q6H PRN (Reason: pain) 3 Days Qty: 12 0RF aripiprazole 2 mg Tablet 2 mg PO HS ropinirole 0.5 mg Tablet 0.5 mg PO TID PRN (Reason: Restless Legs) Xifaxan 550 mg Tablet 550 mg PO BID 30 Days Qty: 60 1RF potassium chloride [Klor-Con M20] 20 mEq Tablet,Er Particles/Crystals 20 meq PO DAILY 30 Days Qty: 30 0RF Vitamin 27 mg iron- 800 mcg Tablet 1 tab PO 1700 30 Days Qty: 30 0RF polyethylene glycol 3350 [Miralax] 17 gram Powder In Packet 17 g PO BID 30 Days Qty: 524 0RF sulfamethoxazole-trimethoprim [Bactrim DS] 800-160 mg tablet 1 tab PO BID 10 Days Qty: 20 0RF Referrals Follow up/Referrals: Meagan Hagan [Primary Care Provider] - See instructions Instructions Patient Instructions: DI for Skin Abscess Discharge ED Provider: Heath Baez General Adult HPI General Chief complaint: Skin/Abscess/Foreign Body Stated complaint: hematoma on L arm still bleeding X7 days Time Seen by Provider: 01/25/24 12:01 Mode of Arrival: Wheelchair Source of Information: Patient Limitations: No Limitations Description of Symptoms (Recalled from ER Triage Doc. by RN): left hand bleeding History of Present Illness HPI narrative: 63-year-old female no relevant medical history presenting with concern for left hand wound. Patient was seen a couple days prior to this and lesion on left thenar eminence was lanced. Patient states that she is afraid to take the dressing off because she is worried it may still be bleeding. Has not visualized it in about 48 hours. No other symptoms. Please note that above description of symptoms, in this electronic medical record under categorization of recalled from ER triage doctor by RN are reflective of an initial nursing assessment, however, is not reflective of my full history and physical exam that was personally taken and clarified. Consequentially, this preceding description of symptoms, which may include the patient's categorized chief complaint in the EMR, do not reflect my personal clinical impression, and the ultimate description of history of present illness and patient stated complaints should be deferred to this section of the note. Unless stated otherwise or congruent with this section of the note, additional signs, symptoms, or incongruence should be interpreted as inaccurate with my clinical impression. Related Data Home Medications Medication Instructions Recorded Confirmed aripiprazole 2 mg tablet 2 mg PO HS 05/23/22 10/15/23 ropinirole 0.5 mg tablet 0.5 mg PO TID PRN Restless Legs 05/23/22 10/15/23 ascorbic acid (vitamin C) 500 mg 500 mg PO DAILY 09/24/23 10/15/23 tablet calcium carbonate 600 mg-vitamin 1 tab PO DAILY 09/24/23 10/15/23 D3 10 mcg (400 unit) tablet (Calcium 600 + D(3)) cholecalciferol (vitamin D3) 125 250 mcg PO DAILY 09/24/23 10/15/23 mcg (5,000 unit) tablet (Vitamin D3) cyclobenzaprine 10 mg tablet 10 mg PO TID PRN Musle spasms 09/24/23 10/15/23 esomeprazole magnesium 40 mg 40 mg PO DAILY 09/24/23 10/15/23 capsule,delayed release ferrous sulfate 325 mg (65 mg 325 mg PO PM 09/24/23 10/15/23 iron) tablet (FeroSul) levothyroxine 125 mcg tablet 125 mcg PO DAILY 09/24/23 10/15/23 (Synthroid) magnesium 250 mg tablet 250 mg PO DAILY 09/24/23 10/15/23 spironolactone 25 mg tablet 25 mg PO BIDP PRN Blood Pressure 09/24/23 10/15/23 venlafaxine 75 mg capsule,extended 75 mg PO HS 09/24/23 10/15/23 release 24 hr Previous Rx's Medication Instructions Recorded furosemide 40 mg tablet 40 mg PO DAILY 30 days #30 tabs 09/25/23 hydrocodone 5 mg-acetaminophen 325 1 tab PO Q6H PRN pain 3 days #12 09/25/23 mg tablet tabs nystatin 100,000 unit/gram topical 1 applic topical QID 10 days #30 09/25/23 powder grams polyethylene glycol 3350 17 gram 17 g PO BID 30 days #524 grams 10/09/23 oral powder packet (Miralax) potassium chloride 20 mEq 20 meq PO DAILY 30 days #30 tabs 10/09/23 tablet,extended release(part/cryst) (Klor-Con M) vits no.130-ferrous fum 1 tab PO 1700 30 days #30 tabs 10/09/23 27 mg iron-folic acid 800 mcg tablet ( Vitamin) rifaximin 550 mg tablet (Xifaxan) 550 mg PO BID 30 days #60 tabs 10/09/23 sulfamethoxazole 800 1 tab PO BID 10 days #20 tabs 01/22/24 mg-trimethoprim 160 mg tablet (Bactrim DS) Allergies Allergy/AdvReac Type Severity Reaction Status Date / Time tizanidine Allergy Mild Verified 09/24/23 23:17 [facility] Disclaimer: The information contained in this section may have been updated after the patient was seen, as this information can be updated by other users. Medical History Anemia Peptic ulcer Cerebellar disorder Lymphedema Hypothyroidism Chronic pain Anxiety Depression HTN (hypertension) Chronic diarrhea Surgical History H/O laminectomy H/O shoulder surgery H/O left knee surgery Family History Other Family history of hypertension Social History Smoking Status: Never smoker alcohol intake: never current occupational status: other Travel in the last 8 weeks: None ROS Obtained: Yes All systems reviewed & no additional complaints except as documented Physical Exam General General appearance: alert and in no apparent distress Head Head exam: atraumatic and normocephalic Eye Eye exam: Present normal appearance, PERRL and EOMI ENT ENT exam: Present mucous membranes moist Neck Neck exam: Present normal inspection, full ROM and trachea midline Respiratory Respiratory exam: Absent respiratory distress, wheezes, stridor, accessory muscle use or prolonged expiratory phase Cardiovascular Cardiovascular exam: Present normal rhythm Abdominal Exam Abdominal exam: Present soft; Absent distention, tenderness, guarding, rebound or rigidity Extremities Exam Extremities exam: Present other (Nodular lesion on thenar eminence of left hand. Nontender, mildly erythematous around it concerning for developing cellulitis. Hemostatic); Absent edema Neurological Exam Neurological exam: Present alert, oriented X3, CN II-XII intact and normal gait; Absent motor sensory deficit Skin Skin exam: Present warm and dry; Absent diaphoresis or erythema Medical Decision Making Medical Records Medical records reviewed: Yes I reviewed the patient's medical records. Get Inquiry Pt receiving controlled substance: No Get was queried for this patient: No Vital Signs: 01/25/24 11:43 Temperature 98.1 F Temperature Source Oral Pulse Rate [Right] 70 Respiratory Rate 18 Blood Pressure [Right Arm] 132/48 L Blood Pressure Mean [Right Arm] 76 02 Sat by Pulse Oximetry 100 Oxygen Delivery Method Room Air Medical Decision Narrative: 63-year-old female no relevant medical history presenting with concern for left hand wound. Patient was seen a couple days prior to this and lesion on left thenar eminence was lanced. Patient states that she is afraid to take the dressing off because she is worried it may still be bleeding. Has not visualized it in about 48 hours. No other symptoms. Patient states she was nervous to take it off without concern for bleeding and her hands not work well so she was not able to wrap it if it was bleeding, so came in for further evaluation and reassurance. Patient does have thenar eminence lesion that is nodular, hemostatic and nontender. Does have surrounding erythema concerning for developing cellulitis. Patient was dressed with Surgicel and further dressings. Antibiotics were brought to patient's bed so she did not have to travel to the pharmacy given chronic physical debility. Because patient at baseline without signs or symptoms of clinical decompensation, deemed appropriate for discharge. Results were relayed to patient who voiced understanding and were agreeable to outpatient management and follow up. I discussed my clinical impression with patient and answered all questions. At this time, the evidence for any other entities in the differential is insufficient to warrant any further testing or ED observation. This was explained as well. Advisory was given that persistent or worsening symptoms require further evaluation. I confirmed the understanding of this discussion. Traveling Passenger Agent disclaimer Much of this encounter note is an electronic ophthalmic lens inspector spoken language to printed text. Electronic ophthalmic lens inspector of the spoken language may permit errors. Although I have reviewed the note, some errors may still exist. Critical Care Critical Care Time Critical Care Time: No
--- NOTE | 2024-01-25 12:58 | PC.NURSE ---
pt tolerated dressing application well. no current bleeding form the site.
[2024-01-25 12:59] VITALS: BP 132/48; PULSE 70; RESP 18; TEMP 36.7; O2SAT 97
== END 2024-01-25 13:15 | disposition home or self-care (01) ==
LOC: ER 12:02
PROVIDERS: Emergency Provider Emergency Medicine; PCP Family Medicine
DX: S60.222A Contusion of left hand, initial encounter (principal); X58.XXXA Exposure to other specified factors, initial encounter
CPT/HCPCS: 99283

== ENCOUNTER 2024-02-29 10:00 | Outpatient (RCR) | payer MEDICARE, OTHER, SELFPAY | END 2024-02-29 11:10 | disposition home or self-care (01) | LOC: OT 10:00 | DX: R29.898 Other symptoms and signs involving the musculoskeletal system (principal) | CPT/HCPCS: 97110; 97140; 97165; 97530 ==

== ENCOUNTER 2024-03-15 10:24 | Observation (INO) | payer MEDICARE, OTHER, SELFPAY ==
[2024-03-15] VITALS (9 sets, daily range): BP systolic 109–139; BP diastolic 59–75; PULSE 68–83; RESP 18–20; TEMP 36.6–37; O2SAT 95–100; BMI 37.8; BMI 33.7
--- NOTE | 2024-03-15 10:50 | XR_ITS ---
FINAL REPORT CLINICAL HISTORY: soft tissue infection FINDINGS: LEFT TIBIA/FIBULA 2 views were obtained. There are postoperative changes in the proximal tibia with a screw plate and screws. Mild degenerative changes are seen in the knee. There is prepatellar soft tissue swelling. IMPRESSION: Degenerative changes with no acute bony abnormality. Prepatellar soft tissue swelling. Reviewed, Interpreted and Dictated by Joey Harris III, MD Transcribed by Cristy Fisher Authenticated and [facility]
--- NOTE | 2024-03-15 10:55 | ED_ITS ---
Discharge Plan Disposition Patient Disposition: Admitted Prescriptions Prescriptions: No Action cyclobenzaprine 10 mg tablet 10 mg PO TID PRN (Reason: Musle spasms) venlafaxine 75 mg capsule,extended release 24hr 75 mg PO HS Rx Instructions: TAKES WITH 150 MG DOSE HS. spironolactone 25 mg tablet 25 mg PO BIDP PRN (Reason: Blood Pressure) ferrous sulfate [FeroSul] 325 mg (65 mg iron) tablet 325 mg PO PM Patient Comments: TAKE 1 TABLET BY MOUTH EVERY DAY AT DINNER esomeprazole magnesium 40 mg capsule,delayed release(DR/EC) 40 mg PO DAILY levothyroxine [Synthroid] 125 mcg Tablet 125 mcg PO DAILY ascorbic acid (vitamin C) 500 mg Tablet 500 mg PO DAILY magnesium 250 mg Tablet 250 mg PO DAILY calcium carbonate-vitamin D3 [Calcium 600 + D(3)] 600 mg-10 mcg (400 unit) Tablet 1 tab PO DAILY cholecalciferol (vitamin D3) [Vitamin D3] 125 mcg (5,000 unit) Tablet 250 mcg PO DAILY nystatin 100,000 unit/gram Powder 1 applic topical QID 10 Days Qty: 30 0RF furosemide 40 mg tablet 40 mg PO DAILY 30 Days Qty: 30 0RF hydrocodone-acetaminophen 5-325 mg tablet 1 tab PO Q6H PRN (Reason: pain) 3 Days Qty: 12 0RF aripiprazole 2 mg Tablet 2 mg PO HS ropinirole 0.5 mg Tablet 0.5 mg PO TID PRN (Reason: Restless Legs) Xifaxan 550 mg Tablet 550 mg PO BID 30 Days Qty: 60 1RF potassium chloride [Klor-Con M20] 20 mEq Tablet,Er Particles/Crystals 20 meq PO DAILY 30 Days Qty: 30 0RF Vitamin 27 mg iron- 800 mcg Tablet 1 tab PO 1700 30 Days Qty: 30 0RF polyethylene glycol 3350 [Miralax] 17 gram Powder In Packet 17 g PO BID 30 Days Qty: 524 0RF sulfamethoxazole-trimethoprim [Bactrim DS] 800-160 mg tablet 1 tab PO BID 10 Days Qty: 20 0RF Referrals Follow up/Referrals: Meagan Hagan [Primary Care Provider] - See instructions Clinical Impressions Clinical Impression: Left leg cellulitis, Edema of left lower extremity Instructions Patient Instructions: DI for Skin Abscess Discharge ED Provider: Estrada,J Bo General Adult HPI General Chief complaint: Skin/Abscess/Foreign Body Stated complaint: possible cellulitus on left leg Time Seen by Provider: 03/15/24 10:42 Mode of Arrival: Wheelchair Source of Information: Patient Limitations: No Limitations Description of Symptoms (Recalled from ER Triage Doc. by RN): pt reports BLE swelling and redness since monday, went to the dr and was put on cephalexin 500mg 2 tabs bid and hasn't noticed any improvement since starting antibiotic, hx of cellulitis, recently had unna boots, also reports chills, unsure about fever History of Present Illness HPI narrative: Patient is a 63-year-old female presents today with left lower extremity erythema redness and warmth of the last several days. She has been on Keflex for several days without any improvement. She has had to be admitted for IV antibiotics for cellulitis in the past and she states this is very similar. Patient presents with photos of the lab showing progression of the last several days. This initially started with a wound the wound is since improved itself. The surrounding cellulitis has worsened. Related Data Home Medications Medication Instructions Recorded Confirmed aripiprazole 2 mg tablet 2 mg PO HS 05/23/22 10/15/23 ropinirole 0.5 mg tablet 0.5 mg PO TID PRN Restless Legs 05/23/22 10/15/23 ascorbic acid (vitamin C) 500 mg 500 mg PO DAILY 09/24/23 10/15/23 tablet calcium carbonate 600 mg-vitamin 1 tab PO DAILY 09/24/23 10/15/23 D3 10 mcg (400 unit) tablet (Calcium 600 + D(3)) cholecalciferol (vitamin D3) 125 250 mcg PO DAILY 09/24/23 10/15/23 mcg (5,000 unit) tablet (Vitamin D3) cyclobenzaprine 10 mg tablet 10 mg PO TID PRN Musle spasms 09/24/23 10/15/23 esomeprazole magnesium 40 mg 40 mg PO DAILY 09/24/23 10/15/23 capsule,delayed release ferrous sulfate 325 mg (65 mg 325 mg PO PM 09/24/23 10/15/23 iron) tablet (FeroSul) levothyroxine 125 mcg tablet 125 mcg PO DAILY 09/24/23 10/15/23 (Synthroid) magnesium 250 mg tablet 250 mg PO DAILY 09/24/23 10/15/23 spironolactone 25 mg tablet 25 mg PO BIDP PRN Blood Pressure 09/24/23 10/15/23 venlafaxine 75 mg capsule,extended 75 mg PO HS 09/24/23 10/15/23 release 24 hr Previous Rx's Medication Instructions Recorded furosemide 40 mg tablet 40 mg PO DAILY 30 days #30 tabs 09/25/23 hydrocodone 5 mg-acetaminophen 325 1 tab PO Q6H PRN pain 3 days #12 09/25/23 mg tablet tabs nystatin 100,000 unit/gram topical 1 applic topical QID 10 days #30 09/25/23 powder grams polyethylene glycol 3350 17 gram 17 g PO BID 30 days #524 grams 10/09/23 oral powder packet (Miralax) potassium chloride 20 mEq 20 meq PO DAILY 30 days #30 tabs 10/09/23 tablet,extended release(part/cryst) (Klor-Con M) vits no.130-ferrous fum 1 tab PO 1700 30 days #30 tabs 10/09/23 27 mg iron-folic acid 800 mcg tablet ( Vitamin) rifaximin 550 mg tablet (Xifaxan) 550 mg PO BID 30 days #60 tabs 10/09/23 sulfamethoxazole 800 1 tab PO BID 10 days #20 tabs 01/22/24 mg-trimethoprim 160 mg tablet (Bactrim DS) Allergies Allergy/AdvReac Type Severity Reaction Status Date / Time tizanidine Allergy Mild Verified 09/24/23 23:17 [facility] Disclaimer: The information contained in this section may have been updated after the patient was seen, as this information can be updated by other users. Medical History Anemia Peptic ulcer Cerebellar disorder Lymphedema Hypothyroidism Chronic pain Anxiety Depression HTN (hypertension) Chronic diarrhea Surgical History H/O laminectomy H/O shoulder surgery H/O left knee surgery Family History Other Family history of hypertension Social History Smoking Status: Never smoker alcohol intake: never current occupational status: other Travel in the last 8 weeks: None ROS Obtained: Yes All systems reviewed & no additional complaints except as documented Physical Exam General General appearance: alert and in no apparent distress Respiratory Respiratory exam: Present normal lung sounds bilaterally Cardiovascular Cardiovascular exam: Present regular rate and normal rhythm Extremities Exam Extremities exam: Present other (Diffuse bilateral lower extremity edema there is significant erythema that circumferential from the distal tib-fib area to the proximal tibia no fluctuance noted) Neurological Exam Neurological exam: Present alert and oriented X3 Medical Decision Making Get Inquiry Pt receiving controlled substance: No Vital Signs: 03/15/24 10:25 03/15/24 10:32 03/15/24 11:00 Temperature 97.9 F Temperature Source Oral Pulse Rate 69 68 Pulse Rate [Right Radial] 77 Respiratory Rate 18 Blood Pressure 122/59 L Blood Pressure [Right Arm] 130/60 Blood Pressure Mean [Right Arm] 83 Blood Pressure Source [Right Arm] Automatic Cuff Blood Pressure Position [Right Arm] Sitting 02 Sat by Pulse Oximetry 97 100 100 Oxygen Delivery Method Room Air Room Air 03/15/24 11:31 Temperature Temperature Source Pulse Rate 71 Pulse Rate [Right Radial] Respiratory Rate Blood Pressure 124/61 Blood Pressure [Right Arm] Blood Pressure Mean [Right Arm] Blood Pressure Source [Right Arm] Blood Pressure Position [Right Arm] 02 Sat by Pulse Oximetry 98 Oxygen Delivery Method Room Air Lab Data Lab results reviewed: Yes I reviewed the patient's lab results. Lab Results 03/15/24 10:45: WBC 4.1 L, RBC 3.79 L, Hgb 12.8, Hct 37.6, MCV 99.1 H, MCH 33.8 H, MCHC 34.1, RDW 15.9, Plt Count 93 L, MPV 8.5, Neut % (Auto) 65.9, Lymph % (Auto) 26.6, [place] % (Auto) 4.7, Eos % (Auto) 2.1, Baso % (Auto) 0.8, Neut # (Auto) 2.7, Lymph # (Auto) 1.1, [place] # (Auto) 0.2, Eos # (Auto) 0.1, Baso # (Auto) 0.0, Sodium 137, Potassium 4.6, Chloride 104, Carbon Dioxide 31 H, Anion Gap 6.6, BUN 5 L, Creatinine 0.40 L, Estimated Creat Clear 71, Estimated GFR 161, Est GFR ( Amer) 194, Glucose 187 H, Lactate 1.2, Calcium 8.7, Total Bilirubin 1.4 H, AST 73 H, ALT 43, Alkaline Phosphatase 220 H, C-Reactive Protein 19.9 H, Total Protein 6.9, Albumin 3.7, Globulin 3.2, Albumin/Globulin Ratio 1.2 03/15/24 10:45 03/15/24 10:45 Orders (Tests/Meds): ED MEDICATIONS Generic Name Dose Route Start Last Admin Trade Name Freq PRN Reason Stop Dose Admin Vancomycin/PEG/NADA/Lysine/Water 1.5 gm in 300 mls @ 150 mls/hr 03/15/24 11:15 03/15/24 11:25 Vancomycin 1.5gm/300ml (Peg) Premix IV 03/15/24 13:14 150 mls/hr ONCE ONE Administration Vancomycin/PEG/NADA/Lysine/Water 1.5 gm in 300 mls @ 150 mls/hr 03/15/24 23:30 Vancomycin 1.5gm/300ml (Peg) Premix IV 03/25/24 23:29 Q12H [facility] Sodium Chloride 10 ml 03/15/24 10:54 Sodium Chloride 0.9% 10ml Flush Syringe IV 04/14/24 10:53 NEEDED PRN Maintain IV Site Discontinued Medications Generic Name Dose Route Start Last Admin Trade Name Freq PRN Reason Stop Dose Admin Miscellaneous 1 each 03/15/24 11:00 03/15/24 11:08 Vancomycin Consult Request NOTAPPLIC 04/14/24 10:59 1 each CONSULT PHARMACY [facility] Administration ORDERS Category Date Time Status Tibia/fibula XR left 2 views [XR tibia fibula LT 2V] Exams 03/15/24 10:50 Taken Stat CBC w/Auto Diff [Complete Blood Count Auto Diff] Stat Lab 03/15/24 10:45 Completed CMP [Comprehensive Metabolic Panel] Stat Lab 03/15/24 10:45 Completed CRP [C-Reactive Protein] Stat Lab 03/15/24 10:45 Completed Lactic Acid Stat Lab 03/15/24 10:45 Completed Blood Culture Stat Micro 03/15/24 11:30 Received Medical Decision Narrative: 63-year-old female with extensive lower extremity cellulitis failing oral antibiotics. She is not systemically ill will get basic blood work. I entertained using dalbavancin on this particular patient but she has cirrhosis and that medication has not been studied in that particular scenario and is not indicated. Therefore she will need to be admitted for IV antibiotics. First dose of vancomycin ordered for the ED labs pending x-ray to rule out subcutaneous gas. Unlikely to be necrotizing soft tissue infection. Will reassess shortly and get her admitted. Reassessment 1213 labs essentially unremarkable patient will be admitted for IV antibiotics to treat her refractory cellulitis of her left lower extremity. I spoke with Dr. Hercules agreed admit this patient. Critical Care Critical Care Time Critical Care Time: No
[2024-03-15 11:01] LABS: Basophils % 0.8 % (0.1-2.0); Eosinophils # 0.1 K/mm3 (0.0-0.4); Eosinophils % 2.1 % (0.1-12.0); Hematocrit 37.6 % (37.0-47.0); Hemoglobin 12.8 g/dL (12.2-16.2); Lymphocytes # 1.1 K/mm3 (0.7-4.5); Lymphocytes % 26.6 % (10-50); Mean Corpuscular HGB Conc 34.1 g/dL (31.8-35.4); Mean Corpuscular Hemoglobin 33.8 pg (27.0-31.2); Mean Corpuscular Volume 99.1 fl (81-99); Mean Platelet Volume 8.5 fl (7.4-10.4); Monocytes # 0.2 K/mm3 (0.1-1.0); Monocytes % 4.7 % (1.7-9.3); Neutrophils # 2.7 K/mm3 (1.8-7.8); Neutrophils % 65.9 % (37.0-80.0); Platelet Count 93 K/mm3 (142-424); Red Blood Count 3.79 M/mm3 (4.20-5.40); Red Cell Distribution Width 15.9 % (11.5-17.5); White Blood Count 4.1 K/mm3 (4.8-10.8)
[2024-03-15 11:05] LABS: Chloride 104 mmol/L (98-107); Potassium 4.6 mmoL/L (3.5-5.1); Sodium 137 mmol/L (136-145)
[2024-03-15 11:07] LABS: Alanine Aminotransferase 43 U/L (12-78); Aspartate Amino Transferase 73 U/L (14-36); Blood Urea Nitrogen 5 mg/dl (7-17); Creatinine Clearance Estimated 71 mL/min (50-200); Estimated Glomerular Filt Rate 161 ml/min (>60); GFR (African American) 194 ML/MIN (>60)
[2024-03-15 11:08] LABS: Albumin Level 3.7 g/dl (3.5-5.0); Albumin/Globulin Ratio 1.2 (1.1-1.8); Alkaline Phosphatase 220 U/L (38-126); Anion Gap 6.6 mEq/L (5-15); Bilirubin,Total 1.4 mg/dl (0.2-1.3); Calcium 8.7 mg/dl (8.4-10.2); Carbon Dioxide 31 mmol/L (22.0-30.0); Globulin 3.2 g/dL (1.3-3.2); Glucose 187 mg/dl (74-100); Lactic Acid 1.2 mmol/L (0.7-2.1); Total Protein,Serum 6.9 g/dl (6.3-8.2)
[2024-03-15] MEDS: VANCOMYCIN CONSULT REQUEST 1 EACH NOTAPPLIC (11:08)
--- NOTE | 2024-03-15 11:08 | PC.NURSE ---
RAD at BS
[2024-03-15 11:13] LABS: C-Reactive Protein 19.9 mg/L (0-4)
[2024-03-15] MEDS: VANCOMYCIN/WATER FOR INJ (PEG) 1.5 GM/300 ML PIGGYBACK IV ×2 (11:25→23:15)
--- NOTE | 2024-03-15 11:36 | P.CONPHA_ITS ---
Pharmacy Consult Date: 03/15/24 Time: 11:36 Referring provider: DR. CARLIN Reason for Consult:: VANCOMYCIN DOSING Allergies Allergy/AdvReac Type Severity Reaction Status Date / Time tizanidine Allergy Mild Verified 09/24/23 23:17 Home Medications Medication Instructions Recorded Confirmed Type aripiprazole 2 mg tablet 2 mg PO HS 05/23/22 10/15/23 History ropinirole 0.5 mg tablet 0.5 mg PO TID PRN Restless Legs 05/23/22 10/15/23 History ascorbic acid (vitamin C) 500 mg 500 mg PO DAILY 09/24/23 10/15/23 History tablet calcium carbonate 600 mg-vitamin 1 tab PO DAILY 09/24/23 10/15/23 History D3 10 mcg (400 unit) tablet (Calcium 600 + D(3)) cholecalciferol (vitamin D3) 125 250 mcg PO DAILY 09/24/23 10/15/23 History mcg (5,000 unit) tablet (Vitamin D3) cyclobenzaprine 10 mg tablet 10 mg PO TID PRN Musle spasms 09/24/23 10/15/23 History esomeprazole magnesium 40 mg 40 mg PO DAILY 09/24/23 10/15/23 History capsule,delayed release ferrous sulfate 325 mg (65 mg 325 mg PO PM 09/24/23 10/15/23 History iron) tablet (FeroSul) levothyroxine 125 mcg tablet 125 mcg PO DAILY 09/24/23 10/15/23 History (Synthroid) magnesium 250 mg tablet 250 mg PO DAILY 09/24/23 10/15/23 History spironolactone 25 mg tablet 25 mg PO BIDP PRN Blood Pressure 09/24/23 10/15/23 History venlafaxine 75 mg capsule,extended 75 mg PO HS 09/24/23 10/15/23 History release 24 hr furosemide 40 mg tablet 40 mg PO DAILY 30 days #30 tabs 09/25/23 10/15/23 Rx hydrocodone 5 mg-acetaminophen 325 1 tab PO Q6H PRN pain 3 days #12 09/25/23 10/15/23 Rx mg tablet tabs nystatin 100,000 unit/gram topical 1 applic topical QID 10 days #30 09/25/23 10/15/23 Rx powder grams polyethylene glycol 3350 17 gram 17 g PO BID 30 days #524 grams 10/09/23 10/15/23 Rx oral powder packet (Miralax) potassium chloride 20 mEq 20 meq PO DAILY 30 days #30 tabs 10/09/23 10/15/23 Rx tablet,extended release(part/cryst) (Klor-Con M) vits no.130-ferrous fum 1 tab PO 1700 30 days #30 tabs 10/09/23 10/15/23 Rx 27 mg iron-folic acid 800 mcg tablet ( Vitamin) rifaximin 550 mg tablet (Xifaxan) 550 mg PO BID 30 days #60 tabs 10/09/23 10/15/23 Rx sulfamethoxazole 800 1 tab PO BID 10 days #20 tabs 01/22/24 Rx mg-trimethoprim 160 mg tablet (Bactrim DS) New Prescriptions to Start Prescriptions: Height: 1.45 m Weight: 79.379 kg Laboratory Results:: Laboratory Results - last 24 hr 03/15/24 10:45: WBC 4.1 L, RBC 3.79 L, Hgb 12.8, Hct 37.6, MCV 99.1 H, MCH 33.8 H, MCHC 34.1, RDW 15.9, Plt Count 93 L, MPV 8.5, Neut % (Auto) 65.9, Lymph % (Auto) 26.6, [place] % (Auto) 4.7, Eos % (Auto) 2.1, Baso % (Auto) 0.8, Neut # (Auto) 2.7, Lymph # (Auto) 1.1, [place] # (Auto) 0.2, Eos # (Auto) 0.1, Baso # (Auto) 0.0, Sodium 137, Potassium 4.6, Chloride 104, Carbon Dioxide 31 H, Anion Gap 6.6, BUN 5 L, Creatinine 0.40 L, Estimated Creat Clear 71, Estimated GFR 161, Est GFR ( Amer) 194, Glucose 187 H, Lactate 1.2, Calcium 8.7, Total Bilirubin 1.4 H, AST 73 H, ALT 43, Alkaline Phosphatase 220 H, C-Reactive Protein 19.9 H, Total Protein 6.9, Albumin 3.7, Globulin 3.2, Albumin/Globulin Ratio 1.2 Medical History: Medical History (Updated 03/15/24 @ 10:55 by Leti Carlin MD) Anemia Peptic ulcer Cerebellar disorder Lymphedema Hypothyroidism Chronic pain Anxiety Depression HTN (hypertension) Chronic diarrhea Assessment and Plan Assessment and plan all Dx Assessment and Plan for all problems:: Pharmacokinetic dosing service Objective: Patient: Floor: Age: 63 yo Serum creatinine: 0.40 mg/dL Height: 57.0 Inches Weight (kg): 79.4 Assessment: IBW (kg): 43.23 Dosing wt(kg): 79.4 Estimated Creatinine clearance (ml/min): 97.0 CRCL method: Cockcroft and Gault using ibw(default). Drug selected: Vancomycin Loading dose (mg): Vd (liters): 63.5 (factor used: 0.8 L/kg) Larry (hr-1): 0.085 Half life (hrs): 8.15 CLvanco=?? 5.397 L/hr Recommended dose: 1500 mg Interval: 12 hrs Infusion time (hrs): 2.0 Predicted peak (mcg/mL): 34.0 Predicted trough (mcg/mL): 14.53 Total body weight is being used for vancomycin dosing. Recommendations: Give Vancomycin 1500 mg q 12 hrs with an expected Cpeak of 34.0 mcg/ml and an expected Ctrough of 14.53 mcg/ml AUC 0-24 /DIETER Data: DIETER 0.5 mcg/mL:?? AUC/DIETER:? 1111.7 DIETER 1.0 mcg/mL:?? AUC/DIETER:? 555.9 --------- DIETER 1.5 mcg/mL:?? AUC/DIETER:? 370.6 DIETER 2.0 mcg/mL:?? AUC/DIETER:? 277.9 Thank you for the consult, will continue to follow. -CHRALY HOLGUIND
--- NOTE | 2024-03-15 12:03 | PC.NURSE ---
Rounded on pt. No needs voiced at this time. Pt resting in bed. Call light remains within reach.
--- NOTE | 2024-03-15 12:04 | PC.NURSE ---
Dr. Estrada speaking with Dr. Hercules about possible admission
--- NOTE | 2024-03-15 12:05 | PC.NURSE ---
MUNA HIGH speaking with Dr. Hercules r/t admission
--- NOTE | 2024-03-15 12:12 | PC.NURSE ---
per er md pt is getting admitted for cellulitis
--- NOTE | 2024-03-15 12:13 | PC.NURSE ---
house aware of admission
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
--- NOTE | 2024-03-15 12:23 | PC.NURSE ---
Report called to Avani FONSECA
--- NOTE | 2024-03-15 12:34 | PC.NURSE ---
arrived by w/c from ED
--- NOTE | 2024-03-15 15:16 | CA_ITS ---
FINAL REPORT TECHNIQUE: Color Doppler, duplex Doppler and compression sonography of the left lower extremity deep venous systems was performed. CLINICAL HISTORY: Left lower extremity swelling, cellulitis FINDINGS: There is no evidence of deep venous thrombosis from the level of the groin to the calf. The veins are patent and compressible. IMPRESSION: No evidence of deep venous thrombosis left lower extremity. Reviewed, Interpreted and Dictated by Joey Harris III, MD Transcribed by Cristy Fisher Authenticated and [facility]
[2024-03-15] MEDS: FUROSEMIDE 40MG/4ML VIAL 80 MG IV (16:17)
[2024-03-15] MEDS: ARIPIPRAZOLE 2 MG 2 EACH PO (21:16)
[2024-03-15] MEDS: VENLAFAXINE XR 75MG CAPSULE 75 MG PO (21:17)
[2024-03-16 04:00] VITALS: BMI 33.3
--- NOTE | 2024-03-16 04:09 | PC.NURSE ---
A/O X 4. PLEASANT AND COOPERATIVE. NO COMPLAINTS OF PAIN. 3+ PITTING EDEMA BLEs, L > R. W/C BOUND. PUREWIC IN USE. LLE RED, WARM AND EDEMATOUS. STATES HAD SHALINI BOOTS ON BUT WERE REMOVED YESTERDAY. VITAL SIGNS STABLE. AFEBRILE.
[2024-03-16 07:56] LABS: Basophils % 0.7 % (0.1-2.0); Eosinophils # 0.2 K/mm3 (0.0-0.4); Eosinophils % 3.2 % (0.1-12.0); Hematocrit 34.5 % (37.0-47.0); Lymphocytes # 1.2 K/mm3 (0.7-4.5); Lymphocytes % 27.2 % (10-50); Mean Corpuscular HGB Conc 33.3 g/dL (31.8-35.4); Mean Corpuscular Hemoglobin 33.3 pg (27.0-31.2); Mean Corpuscular Volume 100.2 fl (81-99); Mean Platelet Volume 8.3 fl (7.4-10.4); Monocytes # 0.3 K/mm3 (0.1-1.0); Monocytes % 5.7 % (1.7-9.3); Neutrophils # 2.9 K/mm3 (1.8-7.8); Neutrophils % 63.2 % (37.0-80.0); Platelet Count 98 K/mm3 (142-424); Red Blood Count 3.45 M/mm3 (4.20-5.40); White Blood Count 4.6 K/mm3 (4.8-10.8)
[2024-03-16 08:00] VITALS: BP 101/57; PULSE 75; RESP 16; TEMP 36.6; O2SAT 95
[2024-03-16 08:06] LABS: Alanine Aminotransferase 29 U/L (12-78); Albumin Level 2.7 g/dl (3.5-5.0); Alkaline Phosphatase 205 U/L (38-126); Anion Gap 3.6 mEq/L (5-15); Aspartate Amino Transferase 40 U/L (14-36); Bilirubin,Total 0.8 mg/dl (0.2-1.3); Blood Urea Nitrogen 6 mg/dl (7-17); Calcium 8.3 mg/dl (8.4-10.2); Carbon Dioxide 33 mmol/L (22.0-30.0); Chloride 105 mmol/L (98-107); Creatinine Clearance Estimated 63 mL/min (50-200); Estimated Glomerular Filt Rate 161 ml/min (>60); GFR (African American) 194 ML/MIN (>60); Globulin 2.6 g/dL (1.3-3.2); Glucose 143 mg/dl (74-100); Magnesium 1.4 mg/dl (1.6-2.3); Potassium 3.6 mmoL/L (3.5-5.1); Sodium 138 mmol/L (136-145); Total Protein,Serum 5.3 g/dl (6.3-8.2)
--- NOTE | 2024-03-16 09:11 | HMH.PHAINT1 ---
Pharmacy Intervention Comments: MEDICATION RECONCILIATION COMPLETED ON PATIENT USING EXTERNAL FILL HISTORY FROM PHARMACY AND PATIENT'S OWN BOTTLES. -BILLIE SHAY, CHARLYD
[2024-03-16] MEDS: MAGNESIUM SULFATE IN WATER 2 GM/50 ML PIGGYBACK IV (09:36)
[2024-03-16] MEDS: POTASSIUM CHLORIDE 20 MEQ PO (09:37)
[2024-03-16] MEDS: VENLAFAXINE 75 MG PO (09:39)
[2024-03-16] MEDS: LEVOTHYROXINE 137 MCG PO (09:40)
[2024-03-16 10:20] LABS: Hemoglobin 11.5 g/dL (12.2-16.2)
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
--- NOTE | 2024-03-18 13:16 | CARE MANAGER ---
Spoke with patient for post-discharge phone call, no issues noted.
== END 2024-03-16 14:03 | disposition home health service (06) ==
LOC: ER 10:55 → 2ND 12:26
PROVIDERS: Admitting Provider Internal Medicine Adolescent Medicine; Emergency Provider Student in an Organized Health Care Education/Training Program; PCP Family Medicine; Visit Provider Internal Medicine Adolescent Medicine
DX: R60.0 Localized edema (principal); L03.116 Cellulitis of left lower limb; K74.60 Unspecified cirrhosis of liver; R53.81 Other malaise; E66.9 Obesity, unspecified; Z99.3 Dependence on wheelchair; I10 Essential (primary) hypertension; F32.A Depression, unspecified; E03.9 Hypothyroidism, unspecified; Z79.899 Other long term (current) drug therapy; I89.0 Lymphedema, not elsewhere classified; Z87.891 Personal history of nicotine dependence; Z68.33 Body mass index [BMI] 33.0-33.9, adult
CPT/HCPCS: 36415; 73590; 80053; 83605; 83735; 85025; 86140; 87040; 93971; 99285; G0378; J1940; J3475

== ENCOUNTER 2024-04-11 10:00 | Outpatient (RCR) | payer MEDICARE, OTHER, SELFPAY | END 2024-04-11 10:05 | disposition home or self-care (01) | LOC: PT 10:00 | PROVIDERS: Visit Provider Family Medicine | DX: R60.0 Localized edema (principal) | CPT/HCPCS: 97110; 97140; 97163; 97164 ==

== ENCOUNTER 2024-05-30 08:41 | Emergency (ER) | payer MEDICARE, OTHER, SELFPAY ==
[2024-05-30] VITALS (9 sets, daily range): BP systolic 102–126; BP diastolic 57–67; PULSE 73–90; RESP 18; TEMP 36.7; O2SAT 94–100; BMI 32.4
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
--- NOTE | 2024-05-30 08:52 | PC.NURSE ---
dr walker at bedside
--- NOTE | 2024-05-30 09:04 | XR_ITS ---
FINAL REPORT CLINICAL HISTORY: Right wrist diffuse pain and swelling after fall 2d ago COMPARISON: None FINDINGS: Two views of the right wrist were obtained. There is no acute fracture or dislocation. The bones are osteopenic. The joint spaces are well preserved. There is no acute soft tissue abnormality. IMPRESSION: No acute abnormality identified. Reviewed, Interpreted and Dictated by Kishan Krishnamurthy MD Transcribed by Sofia Butts Authenticated and [facility]
--- NOTE | 2024-05-30 09:04 | XR_ITS ---
FINAL REPORT CLINICAL HISTORY: Right elbow diffuse pain and swelling after fall 2d ago COMPARISON: None FINDINGS: 3 views of the right elbow were obtained. No true 90 degree lateral view was provided. There is no acute fracture or dislocation. Density in the intra medial space of the distal humerus is probably related to intramedullary stefani. The joint spaces are intact. The soft tissues are unremarkable. IMPRESSION: No acute bony abnormality. Reviewed, Interpreted and Dictated by Kishan Krishnamurthy MD Transcribed by Sofia Butts Authenticated and [facility]
--- NOTE | 2024-05-30 09:04 | XR_ITS ---
FINAL REPORT CLINICAL HISTORY: diffuse pain and swelling after fall 2d ago COMPARISON: None FINDINGS: 2 views of the right forearm were obtained. There is no acute fracture or dislocation. The joints are intact. There are no soft tissue abnormalities. IMPRESSION: No acute process. Reviewed, Interpreted and Dictated by Kishan Krishnamurthy MD Transcribed by Sofia Butts Authenticated and . [facility]
--- NOTE | 2024-05-30 09:04 | XR_ITS ---
FINAL REPORT CLINICAL HISTORY: Right humerus diffuse pain and swelling after fall 2d ago COMPARISON: None FINDINGS: 3 views of the right humerus were obtained. There is a total shoulder prosthesis with a long segment humeral component. Density in the distal humeral diaphysis is probably due to methylmethacrylate. There is no acute fracture or dislocation. The joint spaces are well preserved. There is no acute soft tissue abnormality. IMPRESSION: No acute abnormality identified. Reviewed, Interpreted and Dictated by Kishan Krishnamurthy MD Transcribed by Sofia Butts Authenticated and [facility]
[2024-05-30] MEDS: TET/DIPHTH/PERT-ADULT 0.5ML SYRINGE 0.5 ML IM (09:13)
== END 2024-05-30 10:46 | disposition home or self-care (01) ==
PROVIDERS: Emergency Provider Emergency Medicine; PCP Family Medicine
DX: S50.811A Abrasion of right forearm, initial encounter (principal); I10 Essential (primary) hypertension; E03.9 Hypothyroidism, unspecified; I89.0 Lymphedema, not elsewhere classified; Q07.00 Arnold-Chiari syndrome without spina bifida or hydrocephalus; W01.190A Fall on same level from slipping, tripping and stumbling with subsequent striking against furniture, initial encounter; Y92.9 Unspecified place or not applicable
CPT/HCPCS: 73060; 73070; 73090; 73100; 90471; 90715; 99285

== ENCOUNTER 2024-08-02 11:29 | Emergency (ER) | payer MEDICARE, OTHER, SELFPAY ==
[2024-08-02 11:30] VITALS: BP 118/68; PULSE 94; RESP 18; TEMP 36.6; O2SAT 98; BMI 29.2
--- NOTE | 2024-08-02 11:47 | XR_ITS ---
PROCEDURE INFORMATION: Exam: XR Right Shoulder Exam date and time: 08/02/2024 12:11 PM Age: 63 years old Clinical indication: Injury or trauma; Fall; Blunt trauma (contusions or hematomas); Shoulder; Right; Additional info: Fall injury TECHNIQUE: Imaging protocol: Radiologic exam of the right shoulder. Views: 2 or more views. COMPARISON: CR XR HUMERUS RT 05/30/2024 9:11 AM FINDINGS: Bones/joints: Status post right shoulder arthroplasty. There is similar scalloping of the mid humeral shaft from cement. No hardware-related complication noted. No visible fracture or dislocation. Soft tissues: Normal. IMPRESSION: No visible fracture or dislocation.
--- NOTE | 2024-08-02 11:47 | CT_ITS ---
PROCEDURE INFORMATION: Exam: CT Maxillofacial Without Contrast Exam date and time: 08/02/2024 11:59 AM Age: 63 years old Clinical indication: Injury or trauma; Fall; Blunt trauma (contusions or hematomas); Cheek bone and eyelid and forehead and nose and maxilla and jaw and lip/oral cavity; Bilateral; Not specified; Both upper and lower; Additional info: Fall injury, facial bruising TECHNIQUE: Imaging protocol: Computed tomography of the face without contrast. Radiation optimization: All CT scans at this facility use at least one of these dose optimization techniques: automated exposure control; mA and/or kV adjustment per patient size (includes targeted exams where dose is matched to clinical indication); or iterative reconstruction. COMPARISON: CT HEAD/BRAIN WO CON 08/02/2024 11:57 AM FINDINGS: Paranasal sinuses: No air-fluid levels. Orbital cavities: Globes are symmetric. Orbital rims/barajas are intact. Intraconal fat appear unremarkable. Lacrimal glands are unremarkable. Oral cavity: There is nonspecific soft tissue stranding in the submandibular region and anterior neck. Bones: No acute fracture of the maxillofacial region. Soft tissues: Large left anterolateral scalp/forehead hematoma. IMPRESSION: 1. Large left anterolateral scalp/forehead hematoma. 2. No acute fracture of the maxillofacial region. 3. Nonspecific soft tissue stranding in the submandibular region and anterior neck.
--- NOTE | 2024-08-02 11:47 | CT_ITS ---
PROCEDURE INFORMATION: Exam: CT Cervical Spine Without Contrast Exam date and time: 08/02/2024 12:03 PM Age: 63 years old Clinical indication: Injury or trauma; Fall; Blunt trauma; Additional info: Fall injury TECHNIQUE: Imaging protocol: Computed tomography of the cervical spine without contrast. Radiation optimization: All CT scans at this facility use at least one of these dose optimization techniques: automated exposure control; mA and/or kV adjustment per patient size (includes targeted exams where dose is matched to clinical indication); or iterative reconstruction. COMPARISON: CT CERVICAL SPINE WO CON 10/05/2023 12:56 PM FINDINGS: Bones: Grade 1 anterolisthesis of C4 without associated fracture and presumably degenerative related. Grade 1 anterolisthesis of C7 without associated fracture and presumably degenerative related. Vertebral alignment is maintained. There is preservation of vertebral body heights. Facet joints are aligned. Odontoid process is intact. Atlantoaxial interval maintained. No acute fracture. Uncovertebral and facet arthropathy result in varying degrees of neural foraminal narrowing at multiple levels. Spinal cord: Spinal cord is not well evaluated. Diffuse hypodense appearance in head CT can be seen in the context of chronic ischemia/volume loss. Correlate with prior history. Lungs: Lung apices are normal. Soft tissues: Prevertebral and paravertebral soft tissues are maintained IMPRESSION: No acute fracture. No traumatic subluxation.
--- NOTE | 2024-08-02 11:47 | CT_ITS ---
PROCEDURE INFORMATION: Exam: CT Head Without Contrast Exam date and time: 08/02/2024 11:57 AM Age: 63 years old Clinical indication: Injury or trauma; Fall; Blunt trauma (contusions or hematomas); Additional info: Fall injury TECHNIQUE: Imaging protocol: Computed tomography of the head without contrast. Radiation optimization: All CT scans at this facility use at least one of these dose optimization techniques: automated exposure control; mA and/or kV adjustment per patient size (includes targeted exams where dose is matched to clinical indication); or iterative reconstruction. COMPARISON: CT CERVICAL SPINE WO CON 10/05/2023 12:56 PM FINDINGS: Brain: There is no evidence of acute intracranial hemorrhage, extra-axial collection or locoregional mass effect. There are scattered hypodensities in the periventricular and subcortical white matter. The appearance is nonspecific, but most likely represents chronic small vessel disease in a person of this age Cerebral ventricles: The ventricles, sulci and cisterns are normal in size and configuration for patient's age. No hydrocephalus or midline structure shift Pituitary gland and sella: Sellar/parasellar structures, craniocervical junction and orbits are unremarkable Paranasal sinuses: Visualized sinuses are unremarkable. No fluid levels. Mastoid air cells: Visualized mastoid air cells are well aerated. Bones: There are postoperative changes from prior suboccipital craniotomy. Nonspecific hypodense appearance of the spinal cord concerning for chronic ischemia. No calvarial fracture Soft tissues: Large right anterolateral scalp hematoma. IMPRESSION: 1. No acute intracranial abnormality. No calvarial fracture. 2. Large right anterolateral scalp hematoma. 3. Nonspecific hypodense appearance of the spinal cord concerning for chronic ischemia.
--- NOTE | 2024-08-02 11:50 | HMH.EDGENADL ---
Discharge Plan Disposition Patient Disposition: Home, Self-Care Prescriptions Prescriptions: New cyclobenzaprine 5 mg tablet 5 mg PO TID PRN (Reason: muscle spasm) 5 Days Qty: 15 0RF No Action venlafaxine 75 mg capsule,extended release 24hr 75 mg PO DAILY spironolactone 25 mg tablet 25 mg PO BIDP PRN (Reason: Edema) ferrous sulfate [FeroSul] 325 mg (65 mg iron) tablet 325 mg PO PM Patient Comments: TAKE 1 TABLET BY MOUTH EVERY DAY AT DINNER ascorbic acid (vitamin C) 500 mg Tablet 500 mg PO DAILY magnesium 250 mg Tablet 250 mg PO DAILY calcium carbonate-vitamin D3 [Calcium 600 + D(3)] 600 mg-10 mcg (400 unit) Tablet 1 tab PO DAILY cholecalciferol (vitamin D3) [Vitamin D3] 125 mcg (5,000 unit) Tablet 250 mcg PO DAILY aripiprazole 2 mg Tablet 2 mg PO HS potassium chloride [Klor-Con M20] 20 mEq Tablet,Er Particles/Crystals 20 meq PO DAILY 30 Days Qty: 30 0RF Vitamin 27 mg iron- 800 mcg Tablet 1 tab PO 1700 30 Days Qty: 30 0RF levothyroxine [Synthroid] 137 mcg tablet 137 mcg PO DAILY venlafaxine 150 mg capsule,extended release 24hr 150 mg PO HS doxycycline hyclate 100 mg capsule 100 mg PO BID 7 Days Qty: 14 0RF cephalexin 500 mg capsule 500 mg PO BID 7 Days Qty: 20 0RF Rx Instructions: previously prescribed, resume previous prescription. furosemide [Lasix] 80 mg tablet 80 mg PO DAILY Qty: 30 0RF Referrals Follow up/Referrals: Meagan Hagan [Primary Care Provider] - See instructions Activity Restrictions/Add. Instructions Additional Instructions/Restrictions: No evidence of an emergent medical condition specifically no evidence of intracranial pathology skull fractures facial fractures cervical spine fractures or fracture dislocation of the shoulder. [id number] pain medication in addition to the muscle relaxer and follow-up with your primary care doctor if you need escalation of pain medicine on top of that. Clinical Impressions Clinical Impression: Traumatic ecchymosis of face, Hematoma of frontal scalp, Right shoulder strain, Falls frequently, Arnold-Chiari syndrome Print Language Print Language: [place] Discharge ED Provider: Leti Estrada General Adult [facility] General Chief complaint: Fall Stated complaint: ao 07/29, pain Time Seen by Provider: 08/02/24 11:40 Mode of Arrival: Wheelchair Source of Information: Patient Limitations: No Limitations Description of Symptoms (Recalled from ER Triage Doc. by RN): Patient states that she fell Monday and hit her head. Denies LOC and states she was fine. Complaint of pain. States she came in today because her PCP would not prescribe her pain medication. History of Present Illness HPI narrative: Patient is a 63-year-old female presenting today after an injury on Monday. She states that she has a history of Arnold-Chiari malformation and increasingly has difficulty with ambulation and falls frequently. She is occasionally in a wheelchair but still walks around some. She fell on Monday and struck her head and her right shoulder. She denies being on any anticoagulants and states that she primarily just has face right frontal head and right shoulder pain. She has extensive ecchymosis and bruising since that time and she states that she spoke to her primary care doctor who sent her to the emergency department. The patient states that she only wanted pain medicine but was advised to come to the emergency department for further evaluation and management. She has had no loss of consciousness no changes in mental status no focal neurologic deficits she denies any chest abdomen pelvis or other long bone pain. Related Data Home Medications ?Medication ?Instructions ?Recorded ?Confirmed aripiprazole 2 mg tablet 2 mg PO HS 05/23/22 03/15/24 ascorbic acid (vitamin C) 500 mg 500 mg PO DAILY 09/24/23 03/16/24 tablet calcium 600 mg (as 1 tab PO DAILY 09/24/23 03/16/24 carbonate)-vitamin D3 10 mcg (400 unit) tablet (Calcium 600 + D(3)) cholecalciferol (vitamin D3) 125 250 mcg PO DAILY 09/24/23 03/16/24 mcg (5,000 unit) tablet (Vitamin D3) ferrous sulfate 325 mg (65 mg 325 mg PO PM 09/24/23 03/15/24 iron) tablet (FeroSul) magnesium 250 mg tablet 250 mg PO DAILY 09/24/23 03/16/24 spironolactone 25 mg tablet 25 mg PO BIDP PRN Edema 09/24/23 03/16/24 venlafaxine 75 mg capsule,extended 75 mg PO DAILY 09/24/23 03/16/24 release 24 hr levothyroxine 137 mcg tablet 137 mcg PO DAILY 03/15/24 03/16/24 (Synthroid) venlafaxine 150 mg 150 mg PO HS 03/16/24 03/16/24 capsule,extended release 24 hr Previous Rx's ?Medication ?Instructions ?Recorded potassium chloride 20 mEq 20 meq PO DAILY 30 days #30 tabs 10/09/23 tablet,extended release(part/cryst) (Klor-Con M) vits no.130-ferrous fum 1 tab PO 1700 30 days #30 tabs 10/09/23 27 mg iron-folic acid 800 mcg tablet ( Vitamin) cephalexin 500 mg capsule 500 mg PO BID 7 days #20 caps 03/16/24 doxycycline hyclate 100 mg capsule 100 mg PO BID 7 days #14 caps 03/16/24 furosemide 80 mg tablet (Lasix) 80 mg PO DAILY #30 tabs 03/16/24 cyclobenzaprine 5 mg tablet 5 mg PO TID PRN muscle spasm 5 08/02/24 days #15 tabs Allergies Allergy/AdvReac Type Severity Reaction Status Date / Time tizanidine Allergy Mild Verified 09/24/23 23:17 [facility] [place] Disclaimer: The information contained in this section may have been updated after the patient was seen, as this information can be updated by other users. Medical History (Updated 08/02/24 @ 11:50 by Leti Estrada MD) History of shingles Anemia Peptic ulcer Cerebellar disorder Lymphedema Hypothyroidism Chronic pain Anxiety Depression HTN (hypertension) Chronic diarrhea Surgical History H/O laminectomy H/O shoulder surgery H/O left knee surgery Family History Other Family history of hypertension Social History Smoking Status: Never smoker alcohol intake: never current occupational status: disabled and other Other Medical History Have you received the Flu Vaccine for this season: No Have you received the Pneumonia Vaccine: No ROS Obtained: Yes All systems reviewed & no additional complaints except as documented Physical Exam General General appearance: alert and in no apparent distress Head Head exam: other (Right frontal hematoma and extensive ecchymosis to the face) Neck Neck exam: Present tenderness Chest Chest inspection: Present normal inspection; Absent tenderness Respiratory Respiratory exam: Present normal lung sounds bilaterally and respiratory distress Cardiovascular Cardiovascular exam: Present regular rate Abdominal Exam Abdominal exam: Present soft; Absent tenderness Extremities Exam Extremities exam: Present other (Chronically injured bilateral shoulders ecchymosis and tenderness of the right anterior shoulder) Neurological Exam Neurological exam: Present alert, oriented X3 and CN II-XII intact; Absent motor sensory deficit Medical Decision Making Medical Records Screening: Per USPSTF and CDC recommendations, given the prevalence of disease in our region, it is our hospital?s policy to screen for HIV and viral Hepatitis for all patients aged 18 and over and those with ongoing risk factors. Get Inquiry Pt receiving controlled substance: No Vital Signs: 08/02/24 11:30 08/02/24 12:20 08/02/24 12:37 Temperature 97.9 F Temperature Source Oral Pulse Rate 90 87 Pulse Rate [Radial] 94 H Respiratory Rate 18 Blood Pressure 134/71 Blood Pressure [Right Arm] 118/68 Blood Pressure Mean 82 Blood Pressure Mean [Right Arm] 84 Blood Pressure Source [Right Arm] Automatic Cuff Blood Pressure Position [Right Arm] Sitting 02 Sat by Pulse Oximetry 98 100 100 Oxygen Delivery Method Room Air Room Air 08/02/24 13:00 Temperature Temperature Source Pulse Rate 88 Pulse Rate [Radial] Respiratory Rate Blood Pressure 125/76 Blood Pressure [Right Arm] Blood Pressure Mean 90 Blood Pressure Mean [Right Arm] Blood Pressure Source [Right Arm] Blood Pressure Position [Right Arm] 02 Sat by Pulse Oximetry 99 Oxygen Delivery Method Room Air Orders (Tests/Meds): ED MEDICATIONS Discontinued Medications Generic Name Dose Route Start Last Admin Trade Name Freq PRN Reason Stop Dose Admin Hydrocodone Bitart/Acetaminophen 1 tab 08/02/24 11:47 08/02/24 12:20 Hydrocodone/Apap 5/325 Mg Tablet PO 08/02/24 11:48 1 tab ONCE ONE Administration ORDERS Category Date Time Status CT cervical spine wo con Stat Cat Scan 08/02/24 11:[address] facial bones wo con Stat Cat Scan 08/02/24 11:[address] head/brain wo con Stat Cat Scan 08/02/24 11:47 Completed Shoulder XR right miminum 2 views [XR shoulder RT min Exams 08/02/24 11:47 Completed 2V] Stat HIV (1&2) Antibody Rapid Stat Lab 08/02/24 11:43 Ordered Hep C Ab with Reflex to RNA Stat Lab 08/02/24 11:43 Ordered Medical Decision Narrative: 63-year-old several days post a mechanical fall secondary to progressi neurodegenerative disease associated with Arnold-Chiari malformation. She has extensive ecchymosis and hematoma on the frontal aspect of her face will get a CT scan of her head face cervical spine and x-ray of her right shoulder. She has no evidence of chest abdomen pelvis or otherwise long bone pain. Reassessment 1:34 PM patient remained stable from a neurologic standpoint. CT scans performed which I personally interpreted which showed noes fracture dislocation intracranial pathology etc. X-ray also on my personal interpretation shows no acute abnormality. Patient specifically requested aggressive pain medication but given the fact that there is no significant injury aside from superficial hematomas and ecchymosis I advised that she take ewyo-bil-cuhluga medication but did prescribe her a muscle relaxer she understood this. She was discharged in stable condition with advised to follow-up with primary care doctor return with any worsening symptoms. Critical Care Critical Care Time Critical Care Time: No
--- NOTE | 2024-08-02 11:56 | PC.NURSE ---
pt gone to CT
[2024-08-02 12:20] VITALS: PULSE 90; O2SAT 100
[2024-08-02] MEDS: HYDROCODONE/APAP 5/325 MG TABLET 1 TAB PO (12:20)
[2024-08-02 12:37] VITALS: BP 134/71; PULSE 87; O2SAT 100
[2024-08-02 13:00] VITALS: BP 125/76; PULSE 88; O2SAT 99
[2024-08-02 13:30] VITALS: BP 125/78; PULSE 98; O2SAT 99
[2024-08-02 13:39] VITALS: BP 125/78; PULSE 75; RESP 18; TEMP 36.7; O2SAT 97
== END 2024-08-02 13:43 | disposition home or self-care (01) ==
PROVIDERS: Emergency Provider Student in an Organized Health Care Education/Training Program; PCP Family Medicine
DX: S46.911A Strain of unspecified muscle, fascia and tendon at shoulder and upper arm level, right arm, initial encounter (principal); S00.03XA Contusion of scalp, initial encounter; S00.83XA Contusion of other part of head, initial encounter; Q07.00 Arnold-Chiari syndrome without spina bifida or hydrocephalus; M25.511 Pain in right shoulder; R22.0 Localized swelling, mass and lump, head; R29.6 Repeated falls; W19.XXXA Unspecified fall, initial encounter; Z91.81 History of falling; Y93.9 Activity, unspecified; Y92.9 Unspecified place or not applicable
CPT/HCPCS: 70450; 70486; 72125; 73030; 99284

== ENCOUNTER 2024-08-15 09:45 | Outpatient (RCR) | payer MEDICARE, SELFPAY | END 2024-08-15 23:59 | disposition home or self-care (01) | LOC: PT 09:45 | PROVIDERS: Visit Provider Family Medicine | DX: L98.9 Disorder of the skin and subcutaneous tissue, unspecified (principal) | CPT/HCPCS: 97163 ==

== ENCOUNTER 2024-12-02 10:02 | Outpatient (RCR) | payer MEDICARE, SELFPAY | END 2024-12-02 23:59 | disposition home or self-care (01) | LOC: PT 10:02 | PROVIDERS: PCP Family Medicine; Visit Provider Internal Medicine Nephrology | DX: I89.0 Lymphedema, not elsewhere classified (principal); L98.9 Disorder of the skin and subcutaneous tissue, unspecified | CPT/HCPCS: 97163 ==

== ENCOUNTER 2024-12-10 15:58 | Inpatient (IN) | payer MEDICARE, SELFPAY ==
[2024-12-10] VITALS (11 sets, daily range): BP systolic 105–120; BP diastolic 47–70; PULSE 44–104; RESP 14–18; TEMP 36.6; O2SAT 73–100; BMI 23.6; BMI 22.5
--- NOTE | 2024-12-10 16:05 | ECG_ITS ---
APPROVED REPORT Exam: Resting ECG HR:93 bpm ECG Measurements Heart Rate 93 AXES NE 175 P 53 QRSd 92 QRS 25 QT 330 T -5 QTc 381 Conclusion SINUS RHYTHM NORMAL ECG UNCONFIRMED REPORT Electronically signed by : MYKEL SEXTON, 12/12/2024 05:17:25
--- NOTE | 2024-12-10 16:07 | XR_ITS ---
FINAL REPORT CLINICAL HISTORY: Shortness of breath COMPARISON: None FINDINGS: A single view of the chest was obtained. No acute pulmonary opacity is present. There is no evidence of effusion or pneumothorax. There is evidence of old calcified granulomatous disease. Mediastinum is unremarkable. Heart size is enlarged. IMPRESSION: No acute abnormality. Reviewed, Interpreted and Dictated by Danielle Curry MD Transcribed by Bhumika Farias Authenticated and [facility][1]
--- NOTE | 2024-12-10 16:08 | ED_ITS ---
Discharge Plan Disposition Patient Disposition: Admitted Clinical Impressions Clinical Impression: Hyperglycemia Discharge ED Provider: Stan Atkins General Adult HPI <Yanira Pacheco APRN - Last Filed: 12/11/24 12:03> General Chief complaint: Urogenital-Female Stated complaint: Diabetic Time Seen by Provider: 12/10/24 16:00 History of Present Illness HPI narrative: patient is a 63-year-old female PMHx frequent falls, depression, cirrhosis, functional decline, obesity, wheelchair dependence, HTN who presents to the ED for frequent urination, foul-smelling odor times several days. Patient was at her PCP office prior to arrival for urinary symptoms which she was found to have a blood sugar in the 500s and subsequently sent to the ED for further evaluation. Patient admits that she has been diagnosed with diabetes over a year ago however does not take her sugar pills . Related Data Home Medications ?Medication ?Instructions ?Recorded ?Confirmed aripiprazole 2 mg tablet 2 mg PO HS 05/23/22 12/11/24 ascorbic acid (vitamin C) 500 mg 500 mg PO DAILY 09/24/23 12/11/24 tablet calcium 600 mg (as 1 tab PO DAILY 09/24/23 12/11/24 carbonate)-vitamin D3 10 mcg (400 unit) tablet (Calcium 600 + D(3)) ferrous sulfate 325 mg (65 mg 325 mg PO PM 09/24/23 12/11/24 iron) tablet (FeroSul) spironolactone 25 mg tablet 25 mg PO BIDP PRN Edema 09/24/23 12/11/24 venlafaxine 75 mg capsule,extended 75 mg PO HS 09/24/23 12/11/24 release 24 hr levothyroxine 137 mcg tablet 137 mcg PO DAILYDM 03/15/24 12/11/24 (Synthroid) venlafaxine 150 mg 150 mg PO HS 03/16/24 12/11/24 capsule,extended release 24 hr Previous Rx's ?Medication ?Instructions ?Recorded potassium chloride 20 mEq 20 meq PO DAILY 30 days #30 tabs 10/09/23 tablet,extended release(part/cryst) (Klor-Con M) vits no.130-ferrous fum 1 tab PO 1700 30 days #30 tabs 10/09/23 27 mg iron-folic acid 800 mcg tablet ( Vitamin) furosemide 80 mg tablet (Lasix) 80 mg PO DAILY #30 tabs 03/16/24 Allergies Allergy/AdvReac Type Severity Reaction Status Date / Time tizanidine Allergy Mild Verified 09/24/23 23:17 PFS <Yanira Pacheco APRN - Last Filed: 12/11/24 12:03> PENDING SALE TO [facility] Disclaimer: The information contained in this section may have been updated after the patient was seen, as this information can be updated by other users. Medical History History of shingles Anemia Peptic ulcer Cerebellar disorder Lymphedema Hypothyroidism Chronic pain Anxiety Depression HTN (hypertension) Chronic diarrhea Surgical History H/O laminectomy H/O shoulder surgery H/O left knee surgery Family History Other Family history of hypertension Social History (Updated 12/11/24 @ 00:27 by Rylie Boykin RN) Smoking Status: Former smoker alcohol intake: former current occupational status: disabled and other Travel in the last 8 weeks: None Have you lived/traveled outside [place] in past 30 days?: No Contact w/someone who lives/traveled outside US past 30 days?: No Exposure to someone with infectious disease in past 14 days?: No Do you have a fever (greater than 100.4 F or 38 C)?: No Have you tested positive for COVID-19: No Exposed to someone with COVID-19 in past 14 days?: No Do you have a sore throat?: No Do you have a cough?: No Do you have any weakness?: No Do you have any diarrhea?: No Are you experiencing any unusual bleeding?: No Do you have any muscle aches/pain?: No Do you have any abdominal pain?: No Are you experiencing loss of taste or smell?: No Other Medical History Have you received the Flu Vaccine for this season: No Have you received the Pneumonia Vaccine: No <Yanira Pacheco APRN - Last Filed: 12/11/24 12:03> ROS Obtained: Yes Systems reviewed as appropriate & no additional complaints except as documented Physical Exam <Yanira Pacheco APRN - Last Filed: 12/11/24 12:03> General General appearance: alert and in no apparent distress Head Head exam: atraumatic and normocephalic Eye Eye exam: Present normal appearance and PERRL ENT ENT exam: Present normal exam Neck Neck exam: Present normal inspection Chest Chest inspection: Present normal inspection and symmetric chest wall rise; Absent tenderness Respiratory Respiratory exam: Present normal lung sounds bilaterally Cardiovascular Cardiovascular exam: Present regular rate Abdominal Exam Abdominal exam: Present soft and normal bowel sounds; Absent tenderness Extremities Exam Extremities exam: Present normal inspection and full ROM Back Exam Back exam: Present normal inspection and full ROM Neurological Exam Neurological exam: Present alert and oriented X3 Psychiatric Psychiatric exam: Present normal affect and normal mood Skin Skin exam: Present warm and dry Medical Decision Making <Yanira Pacheco APRN - Last Filed: 12/11/24 12:03> Medical Records Screening: Per USPSTF and CDC recommendations, given the prevalence of disease in our region, it is our hospital?s policy to screen for HIV and viral Hepatitis for all patients aged 18 and over and those with ongoing risk factors. Get Inquiry Pt receiving controlled substance: No Get was queried for this patient: No Vital Signs: 12/10/24 16:05 12/10/24 16:09 12/10/24 16:11 Temperature 97.9 F Temperature Source Oral Pulse Rate 101 H 101 H Pulse Rate [Apical] 100 H Respiratory Rate 18 Blood Pressure Blood Pressure [Right Arm] 114/66 Blood Pressure Mean Blood Pressure Mean [Right Arm] 82 Blood Pressure Source Blood Pressure Source [Right Arm] Automatic Cuff Blood Pressure Position 02 Sat by Pulse Oximetry 99 94 L 89 L Oxygen Delivery Method Room Air 12/10/24 16:30 12/10/24 18:37 12/10/24 19:00 Temperature Temperature Source Pulse Rate 44 L 104 H Pulse Rate [Apical] Respiratory Rate Blood Pressure 120/69 109/63 L 119/62 Blood Pressure [Right Arm] Blood Pressure Mean 86 73 Blood Pressure Mean [Right Arm] Blood Pressure Source Blood Pressure Source [Right Arm] Blood Pressure Position 02 Sat by Pulse Oximetry 100 Oxygen Delivery Method 12/10/24 19:30 12/10/24 20:00 12/10/24 21:00 Temperature Temperature Source Pulse Rate 96 H 103 H 101 H Pulse Rate [Apical] Respiratory Rate Blood Pressure 108/58 L 109/59 L 105/67 L Blood Pressure [Right Arm] Blood Pressure Mean 78 Blood Pressure Mean [Right Arm] Blood Pressure Source Blood Pressure Source [Right Arm] Blood Pressure Position 02 Sat by Pulse Oximetry 99 99 100 Oxygen Delivery Method 12/10/24 22:35 Temperature 97.9 F Temperature Source Oral Pulse Rate 100 H Pulse Rate [Apical] Respiratory Rate 16 Blood Pressure 108/70 L Blood Pressure [Right Arm] Blood Pressure Mean Blood Pressure Mean [Right Arm] Blood Pressure Source Automatic Cuff Blood Pressure Source [Right Arm] Blood Pressure Position Supine 02 Sat by Pulse Oximetry Oxygen Delivery Method Room Air Lab Data Lab Results 12/10/24 16:55: WBC 5.1, RBC 4.17 L, Hgb 12.7, Hct 37.8, MCV 90.6, MCH 30.5, MCHC 33.6, RDW 14.0, Plt Count 66 L, MPV 9.8, Neut % (Auto) 70.7, Lymph % (Auto) 20.6, Amador % (Auto) 7.3, Eos % (Auto) 0.8, Baso % (Auto) 0.4, Neut # (Auto) 3.6, Lymph # (Auto) 1.0, Amador # (Auto) 0.4, Eos # (Auto) 0.0, Baso # (Auto) 0.0, S odium 131 L, Potassium 5.3 H, Chloride 89 L, Carbon Dioxide 39 H, Anion Gap 8.3, BUN 21 H, Creatinine 0.30 L, Estimated Creat Clear 56, Estimated GFR 224, Est GFR ( Amer) 271, Glucose 540 H*, Hemoglobin A1c 12.1 H, Lactate 2.1, Calcium 9.7, Total Bilirubin 1.9 H, AST 91 H, ALT 71, Alkaline Phosphatase 443 H , Troponin I 0.02, Total Protein 6.9 D, Albumin 3.9, Globulin 3.0, Albumin/Globulin Ratio 1.3, Acetone Level None detected 12/10/24 17:05: Urine Color Yellow, Urine Appearance Clear, Urine pH 6.5, Ur Specific [place] 1.010, Urine Protein Negative, Urine Glucose (UA) 3+, Urine Ketones Negative, Urine Blood 3+ A, Urine Nitrate Negative, Urine Bilirubin Negative, Urine Urobilinogen 0.2, Ur Leukocyte Esterase Negative, Urine RBC 20- 50, Urine WBC None, Ur Squamous Epith Cells 3-5, Urine Bacteria Trace 12/10/24 17:48: SARS-CoV-2 (PCR) Not detected, Influenza A Untype (PCR) Not detected, Influenza Type B (PCR) Not detected 12/10/24 21:06: Troponin I < 0.01 12/10/24 21:40: Lactate 1.4 12/11/24 05:32 12/11/24 05:32 Orders (Tests/Meds): ED MEDICATIONS Generic Name Dose Route Start Last Admin Trade Name Sarwat PRN Reason Stop Dose Admin Acetaminophen 650 mg 12/10/24 22:08 Acetaminophen 325mg Tab PO 01/09/25 22:07 Q4HP PRN Fever or Mild Pain (1-3) Insulin Human Lispro 0 unit 12/10/24 22:10 12/11/24 16:42 Humalog 100 Units/Ml 10ml Vial (Ssi) SUBCUT 01/09/25 22:09 2 unit ACHS MAINE Administration Protocol Levothyroxine Sodium 137 mcg 12/11/24 09:00 12/11/24 09:15 Levothyroxine 137mcg (0.137mg) Tab PO 01/10/25 08:59 137 mcg DAILYDM MAINE Administration Pt Own Med * 1 each 12/11/24 21:00 Aripiprazole 2 Mg PO 01/10/25 20:59 Tab* HS MAINE Sodium Chloride 10 ml 12/10/24 16:05 Sodium Chloride 0.9% 10ml Flush Syringe IV 01/09/25 16:04 NEEDED PRN Maintain IV Site Venlafaxine HCl 225 mg 12/11/24 21:00 Venlafaxine Xr 75mg Capsule PO 01/10/25 20:59 HS MAINE Discontinued Medications Generic Name Dose Route Start Last Admin Trade Name Sarwat PRN Reason Stop Dose Admin Sodium Chloride 1,000 mls @ 250 mls/hr 12/10/24 16:06 12/10/24 16:55 Sod Chlor 0.9% 1000ml Bag IV 12/10/24 20:05 250 mls/hr .Q4H ONE Administration Sodium Chloride 1,000 mls @ 999 mls/hr 12/10/24 19:35 12/10/24 19:52 Sod Chlor 0.9% 1000ml Bag IV 12/10/24 20:35 999 mls/hr .Q1H1M ONE Administration Sodium Chloride 1,000 mls @ 100 mls/hr 12/10/24 22:15 12/11/24 10:09 Sod Chlor 0.9% 1000ml Bag IV 01/09/25 22:14 Not Given .Q10H MAINE Lactated Ringer's 1,000 mls @ 500 mls/hr 12/11/24 07:42 12/11/24 07:46 Lactated Ringer's 1000 Ml Bag IV 12/11/24 09:41 500 mls/hr .Q2H ONE Administration Ceftriaxone Sodium 2 gm/ 100 mls @ 200 mls/hr 12/11/24 08:56 12/11/24 10:23 Sodium Chloride IV 12/11/24 09:25 200 mls/hr ONCE ONE Administration Magnesium Sulfate 2 gm in 50 mls @ 50 mls/hr 12/11/24 13:00 12/11/24 16:09 Magnesium Sulfate 2gm/50ml Premix IV 12/11/24 15:59 50 mls/hr Q1H MAINE Administration Insulin Human Lispro 6 unit 12/10/24 23:08 12/10/24 23:13 Humalog 100 Units/Ml 10ml Vial (Ssi) SUBCUT 12/10/24 23:09 6 unit ONCE ONE Administration ORDERS Category Date Time Status CXR --portable [XR chest portable] Stat Exams 12/10/24 16:07 Completed Acetone, Serum (Rapid) Stat Lab 12/10/24 16:55 Completed Basic Metabolic Panel AMLAB Lab 12/11/24 05:32 Completed CBC w/Auto Diff [Complete Blood Count Auto Diff] Stat Lab 12/10/24 16:55 Completed CMP [Comprehensive Metabolic Panel] Stat Lab 12/10/24 16:55 Completed Complete Blood Count Auto Diff AMLAB Lab 12/11/24 05:32 Completed Hemoglobin A1C Stat Lab 12/10/24 16:55 Completed Lactic Acid Follow Up (RFLX 1) Stat Lab 12/10/24 21:40 Completed Lactic Acid Stat Lab 12/10/24 16:55 Completed Lipid Panel AMLAB Lab 12/11/24 05:32 Completed Magnesium Routine Lab 12/10/24 22:08 Completed Rapid PCR Covid and Flu A/B Stat Lab 12/10/24 17:48 Completed Trop I [Troponin I] Stat Lab 12/10/24 16:55 Completed Troponin I Q3H Lab 12/10/24 21:06 Completed Troponin I Q3H Lab 12/10/24 22:15 Completed Urinalysis and Microscopic Stat Lab 12/10/24 17:05 Completed Medical Decision Narrative: In summary, patient is a 63-year-old female PMHx frequent falls, depression, cirrhosis, functional decline, obesity, wheelchair dependence, HTN who presents to the ED for frequent urination, foul-smelling odor times several days. Patient was at her PCP office prior to arrival for urinary symptoms which she was found to have a blood sugar in the 500s and subsequently sent to the ED for further evaluation. Patient admits that she has been diagnosed with diabetes over a year ago however does not take her sugar pills . She states that recently she has stopped taking her antihistamines and completed a course of oral steroids. Patient is a poor historian. Upon initial exam, patient is alert, oriented and cooperative. Patient is hemodynamically stable. Physical exam remarkable for patient is unkept, foul odor noted, wearing diaper. Patient is ambulatory with assistance, uses a walker or wheelchair most of the time. Denies fever, chills, body aches, headache, posterior neck pain, chest pain, shortness of breath, back pain. Differential diagnosis includes DKA, UTI, pyelonephritis, sepsis, other infectious process. Initial workup will be conducted with hematologic labs, imaging. Initial inventions include IV fluids. Initial workup reviewed by me. CBC unremarkable for any leukocytosis, stable H&H. Platelet count 66, appears to be lower than baseline of 98. Lactate 2.1. Urinalysis remarkable for 3+ blood, negative nitrite, negative leuk. I informally interpreted the imaging as no acute cardiopulmonary findings on the chest x-ray. Care transferred to Dr. Atkins pending further workup and dispo decision <Stan Atkins MD - Last Filed: 12/11/24 16:57> Vital Signs: 12/10/24 16:05 12/10/24 16:09 12/10/24 16:11 Temperature 97.9 F Temperature Source Oral Pulse Rate 101 H 101 H Pulse Rate [Apical] 100 H Respiratory Rate 18 Blood Pressure Blood Pressure [Right Arm] 114/66 Blood Pressure Mean Blood Pressure Mean [Right Arm] 82 Blood Pressure Source Blood Pressure Source [Right Arm] Automatic Cuff Blood Pressure Position 02 Sat by Pulse Oximetry 99 94 L 89 L Oxygen Delivery Method Room Air 12/10/24 16:30 12/10/24 18:37 12/10/24 19:00 Temperature Temperature Source Pulse Rate 44 L 104 H Pulse Rate [Apical] Respiratory Rate Blood Pressure 120/69 109/63 L 119/62 Blood Pressure [Right Arm] Blood Pressure Mean 86 73 Blood Pressure Mean [Right Arm] Blood Pressure Source Blood Pressure Source [Right Arm] Blood Pressure Position 02 Sat by Pulse Oximetry 100 Oxygen Delivery Method 12/10/24 19:30 12/10/24 20:00 12/10/24 21:00 Temperature Temperature Source Pulse Rate 96 H 103 H 101 H Pulse Rate [Apical] Respiratory Rate Blood Pressure 108/58 L 109/59 L 105/67 L Blood Pressure [Right Arm] Blood Pressure Mean 78 Blood Pressure Mean [Right Arm] Blood Pressure Source Blood Pressure Source [Right Arm] Blood Pressure Position 02 Sat by Pulse Oximetry 99 99 100 Oxygen Delivery Method 12/10/24 22:35 Temperature 97.9 F Temperature Source Oral Pulse Rate 100 H Pulse Rate [Apical] Respiratory Rate 16 Blood Pressure 108/70 L Blood Pressure [Right Arm] Blood Pressure Mean Blood Pressure Mean [Right Arm] Blood Pressure Source Automatic Cuff Blood Pressure Source [Right Arm] Blood Pressure Position Supine 02 Sat by Pulse Oximetry Oxygen Delivery Method Room Air Lab Data Lab Results 12/10/24 16:55: WBC 5.1, RBC 4.17 L, Hgb 12.7, Hct 37.8, MCV 90.6, MCH 30.5, MCHC 33.6, RDW 14.0, Plt Count 66 L, MPV 9.8, Neut % (Auto) 70.7, Lymph % (Auto) 20.6, [place] % (Auto) 7.3, Eos % (Auto) 0.8, Baso % (Auto) 0.4, Neut # (Auto) 3.6, Lymph # (Auto) 1.0, [place] # (Auto) 0.4, Eos # (Auto) 0.0, Baso # (Auto) 0.0, S odium 131 L, Potassium 5.3 H, Chloride 89 L, Carbon Dioxide 39 H, Anion Gap 8.3, BUN 21 H, Creatinine 0.30 L, Estimated Creat Clear 56, Estimated GFR 224, Est GFR ( Amer) 271, Glucose 540 H*, Hemoglobin A1c 12.1 H, Lactate 2.1, Calcium 9.7, Total Bilirubin 1.9 H, AST 91 H, ALT 71, Alkaline Phosphatase 443 H , Troponin I 0.02, Total Protein 6.9 D, Albumin 3.9, Globulin 3.0, Albumin/Globulin Ratio 1.3, Acetone Level None detected 12/10/24 17:05: Urine Color Yellow, Urine Appearance Clear, Urine pH 6.5, Ur Specific [place] 1.010, Urine Protein Negative, Urine Glucose (UA) 3+, Urine Ketones Negative, Urine Blood 3+ A, Urine Nitrate Negative, Urine Bilirubin Negative, Urine Urobilinogen 0.2, Ur Leukocyte Esterase Negative, Urine RBC 20- 50, Urine WBC None, Ur Squamous Epith Cells 3-5, Urine Bacteria Trace 12/10/24 17:48: SARS-CoV-2 (PCR) Not detected, Influenza A Untype (PCR) Not detected, Influenza Type B (PCR) Not detected 12/10/24 21:06: Troponin I < 0.01 12/10/24 21:40: Lactate 1.4 Orders (Tests/Meds): ED MEDICATIONS Generic Name Dose Route Start Last Admin Trade Name Freq PRN Reason Stop Dose Admin Acetaminophen 650 mg 12/10/24 22:08 Acetaminophen 325mg Tab PO 01/09/25 22:07 Q4HP PRN Fever or Mild Pain (1-3) Insulin Human Lispro 0 unit 12/10/24 22:10 12/11/24 16:42 Humalog 100 Units/Ml 10ml Vial (Ssi) SUBCUT 01/09/25 22:09 2 unit ACHS MAINE Administration Protocol Levothyroxine Sodium 137 mcg 12/11/24 09:00 12/11/24 09:15 Levothyroxine 137mcg (0.137mg) Tab PO 01/10/25 08:59 137 mcg DAILYDM MAINE Administration Pt Own Med * 1 each 12/11/24 21:00 Aripiprazole 2 Mg PO 01/10/25 20:59 Tab* HS MAINE Sodium Chloride 10 ml 12/10/24 16:05 Sodium Chloride 0.9% 10ml Flush Syringe IV 01/09/25 16:04 NEEDED PRN Maintain IV Site Venlafaxine HCl 225 mg 12/11/24 21:00 Venlafaxine Xr 75mg Capsule PO 01/10/25 20:59 HS MAINE Discontinued Medications Generic Name Dose Route Start Last Admin Trade Name Sarwat PRN Reason Stop Dose Admin Sodium Chloride 1,000 mls @ 250 mls/hr 12/10/24 16:06 12/10/24 16:55 Sod Chlor 0.9% 1000ml Bag IV 12/10/24 20:05 250 mls/hr .Q4H ONE Administration Sodium Chloride 1,000 mls @ 999 mls/hr 12/10/24 19:35 12/10/24 19:52 Sod Chlor 0.9% 1000ml Bag IV 12/10/24 20:35 999 mls/hr .Q1H1M ONE Administration Sodium Chloride 1,000 mls @ 100 mls/hr 12/10/24 22:15 12/11/24 10:09 Sod Chlor 0.9% 1000ml Bag IV 01/09/25 22:14 Not Given .Q10H MAINE Lactated Ringer's 1,000 mls @ 500 mls/hr 12/11/24 07:42 12/11/24 07:46 Lactated Ringer's 1000 Ml Bag IV 12/11/24 09:41 500 mls/hr .Q2H ONE Administration Ceftriaxone Sodium 2 gm/ 100 mls @ 200 mls/hr 12/11/24 08:56 12/11/24 10:23 Sodium Chloride IV 12/11/24 09:25 200 mls/hr ONCE ONE Administration Magnesium Sulfate 2 gm in 50 mls @ 50 mls/hr 12/11/24 13:00 12/11/24 16:09 Magnesium Sulfate 2gm/50ml Premix IV 12/11/24 15:59 50 mls/hr Q1H MAINE Administration Insulin Human Lispro 6 unit 12/10/24 23:08 12/10/24 23:13 Humalog 100 Units/Ml 10ml Vial (Ssi) SUBCUT 12/10/24 23:09 6 unit ONCE ONE Administration ORDERS Category Date Time Status CXR --portable [XR chest portable] Stat Exams 12/10/24 16:07 Completed Acetone, Serum (Rapid) Stat Lab 12/10/24 16:55 Completed Basic Metabolic Panel AMLAB Lab 12/11/24 05:32 Completed CBC w/Auto Diff [Complete Blood Count Auto Diff] Stat Lab 12/10/24 16:55 Completed CMP [Comprehensive Metabolic Panel] Stat Lab 12/10/24 16:55 Completed Complete Blood Count Auto Diff AMLAB Lab 12/11/24 05:32 Completed Hemoglobin A1C Stat Lab 12/10/24 16:55 Completed Lactic Acid Follow Up (RFLX 1) Stat Lab 12/10/24 21:40 Completed Lactic Acid Stat Lab 12/10/24 16:55 Completed Lipid Panel AMLAB Lab 12/11/24 05:32 Completed Magnesium Routine Lab 12/10/24 22:08 Completed Rapid PCR Covid and Flu A/B Stat Lab 12/10/24 17:48 Completed Trop I [Troponin I] Stat Lab 12/10/24 16:55 Completed Troponin I Q3H Lab 12/10/24 21:06 Completed Troponin I Q3H Lab 12/10/24 22:15 Completed Urinalysis and Microscopic Stat Lab 12/10/24 17:05 Completed Medical Decision Narrative: In summary, patient is a 63-year-old female PMHx frequent falls, depression, cirrhosis, functional decline, obesity, wheelchair dependence, HTN who presents to the ED for frequent urination, foul-smelling odor times several days. Patient was at her PCP office prior to arrival for urinary symptoms which she was found to have a blood sugar in the 500s and subsequently sent to the ED for further evaluation. Patient admits that she has been diagnosed with diabetes over a year ago however does not take her sugar pills . She states that recently she has stopped taking her antihistamines and completed a course of oral steroids. Patient is a poor historian. Upon initial exam, patient is alert, oriented and cooperative. Patient is hemodynamically stable. Physical exam remarkable for patient is unkept, foul odor noted, wearing diaper. Patient is ambulatory with assistance, uses a walker or wheelchair most of the time. Denies fever, chills, body aches, headache, posterior neck pain, chest pain, shortness of breath, back pain. Differential diagnosis includes DKA, UTI, pyelonephritis, sepsis, other infectious process. Initial workup will be conducted with hematologic labs, imaging. Initial inventions include IV fluids. Initial workup reviewed by me. CBC unremarkable for any leukocytosis, stable H&H. Platelet count 66, appears to be lower than baseline of 98. Lactate 2.1. Urinalysis remarkable for 3+ blood, negative nitrite, negative leuk. I informally interpreted the imaging as no acute cardiopulmonary findings on the chest x-ray. Care transferred to Dr. Atkins pending further workup and dispo decision I was consulted by the [facility], and we discussed the complexity of the problems being addressed.I approved the treatment and management plan for this patient?s care in the Emergency Department, thus performing a substantive portion of the medical decision making.Signed, Stan Atkins MD [facility] Patient was admitted to hospital medicine service for persistent hyperglycemia Critical Care <Yanira Pacheco, [place] OP - Last Filed: 12/11/24 12:03> Critical Care Time Critical Care Time: No
[2024-12-10] MEDS: 0.9 % SODIUM CHLORIDE 1000ML 1,000 ML 250 ML IV (16:55)
--- NOTE | 2024-12-10 17:15 | PC.NURSE ---
BLADDER SCAN [id number]
[2024-12-10 17:29] LABS: Basophils % 0.4 % (0.1-2.0); Eosinophils % 0.8 % (0.1-12.0); Hematocrit 37.8 % (37.0-47.0); Hemoglobin 12.7 g/dL (12.2-16.2); Lymphocytes % 20.6 % (10-50); Mean Corpuscular HGB Conc 33.6 g/dL (31.8-35.4); Mean Corpuscular Hemoglobin 30.5 pg (27.0-31.2); Mean Corpuscular Volume 90.6 fl (81-99); Mean Platelet Volume 9.8 fl (7.4-10.4); Monocytes # 0.4 K/mm3 (0.1-1.0); Monocytes % 7.3 % (1.7-9.3); Neutrophils # 3.6 K/mm3 (1.8-7.8); Neutrophils % 70.7 % (37.0-80.0); Platelet Count 66 K/mm3 (142-424); Red Blood Count 4.17 M/mm3 (4.20-5.40); White Blood Count 5.1 K/mm3 (4.8-10.8)
[2024-12-10 17:32] LABS: Microscopic, Urine URINE MICROSCOPIC (MICROSCOPIC)
[2024-12-10 17:44] LABS: Appearance,Urine CLEAR (Clear); Bilirubin,Urine Negative (Negative); Blood, Urine 3+ (Negative); Color,Urine YELLOW (Yellow); Glucose,Urine (UA) 3+ (Negative); Ketones,Urine Negative (Negative); Leukocyte Esterase,Urine Negative (Negative); Nitrate,Urine Negative (Negative); PH,Urine 6.5 (5.0-8.5); Protein,Urine Negative (Negative); Urobilinogen,Urine 0.2 EU/dl (0.2)
[2024-12-10 17:52] LABS: Coronavirus 19, PCR Not Detected (NotDetected); Influenza A, PCR Not Detected (NotDetected); Influenza B, PCR Not Detected (NotDetected)
[2024-12-10 17:54] LABS: Lactic Acid 2.1 mmol/L (0.7-2.1)
--- NOTE | 2024-12-10 18:27 | PC.NURSE ---
FSBS 474 HB
[2024-12-10 19:02] LABS: Acetone, Serum (Rapid) None Detected (None Detect)
[2024-12-10 19:04] LABS: Albumin Level 3.9 g/dl (3.5-5.0); Chloride 89 mmol/L (98-107); Potassium 5.3 mmoL/L (3.5-5.1); Sodium 131 mmol/L (136-145)
[2024-12-10 19:07] LABS: Alanine Aminotransferase 71 U/L (12-78); Albumin/Globulin Ratio 1.3 (1.1-1.8); Alkaline Phosphatase 443 U/L (38-126); Anion Gap 8.3 mEq/L (5-15); Aspartate Amino Transferase 91 U/L (14-36); Bilirubin,Total 1.9 mg/dl (0.2-1.3); Blood Urea Nitrogen 21 mg/dl (7-17); Calcium 9.7 mg/dl (8.4-10.2); Carbon Dioxide 39 mmol/L (22.0-30.0); Creatinine Clearance Estimated 56 mL/min (50-200); Estimated Glomerular Filt Rate 224 ml/min (>60); GFR (African American) 271 ML/MIN (>60); Total Protein,Serum 6.9 g/dl (6.3-8.2)
[2024-12-10 19:19] LABS: Troponin I 0.02 ng/ml (0.00-0.034)
[2024-12-10 19:21] LABS: Bacteria,Urine Trace /lpf; RBC,Urine 20-50 #/hpf (0-3)
[2024-12-10 19:23] LABS: Glucose 540 mg/dl (74-100)
[2024-12-10] MEDS: 0.9 % SODIUM CHLORIDE 1000ML 1,000 ML 999 ML IV (19:52)
--- NOTE | 2024-12-10 20:33 | PC.NURSE ---
could not get blood from patient for second troponin; lab called; lab states they will come down to collect second troponin
[2024-12-10 20:45] LABS: Hemoglobin A1C 12.1 % (4.0-6.0)
--- NOTE | 2024-12-10 20:46 | PC.NURSE ---
pts repeat blood sugar was 422
[2024-12-10 21:02] LABS: Reflex Lactic Add Lactic Reflex
[2024-12-10 22:04] LABS: Lactic Acid Follow Up (RFLX 1) 1.4 mmol/L (0.7-2.1)
[2024-12-10 22:06] LABS: Troponin I < 0.01 ng/ml (0.00-0.034)
--- NOTE | 2024-12-10 22:25 | PC.NURSE ---
Called to give report to floor; sharan unable to take report at this time, states she will call back.
--- NOTE | 2024-12-10 22:53 | PC.NURSE ---
patients came up via stretcher at [id number] from ed
[2024-12-10] MEDS: humaLOG 100 UNITS/ML 10ML VIAL (SSI) 6 UNIT SUBCUT (23:13)
[2024-12-10] MEDS: 0.9 % SODIUM CHLORIDE 1000ML 1,000 ML 100 ML IV (23:13)
--- NOTE | 2024-12-10 23:27 | P.HP_ITS ---
History of Present Illness *Admission Date: 12/10/24 *Reason for visit:: Urinary frequency *History of present illness: This is a 63-year-old female with Aviles cirrhosis, hypertension, lymphedema, hypothyroidism who presents emergency department today with complaints of urinary frequency. She reports being in her normal state of health until this week when she developed significantly increased urinary frequency. States that she was diagnosed with diabetes approximately 1 year ago but attempted to diet manages this. States that she has been getting out sugar until most recently. States that she had been drinking sugary drinks this week but was unaware that her urinary symptoms were likely related to her DM. She denies any fever. Denies any dysuria. Denies any flank pain. She does endorse increased generalized weakness and falls. Emergency department workup notable for glucose elevated in the 500 range. Not in DKA. Acetone negative. Platelet count of 66,000. Despite IV fluid administration the emergency department, glucose remained greater than 400. A1c of 12. She reports she feels too weak to go home and take care of herself. Lives at home and gets around by wheelchair. Given her frequent falls and urinary frequency she felt that she would benefit from hospitalization. She is admitted to the hospital service [facility] Disclaimer: The information contained in this section may have been updated after the patient was seen, as this information can be updated by other users. Medical History History of shingles Anemia Peptic ulcer Cerebellar disorder Lymphedema Hypothyroidism Chronic pain Anxiety Depression HTN (hypertension) Chronic diarrhea Surgical History H/O laminectomy H/O shoulder surgery H/O left knee surgery Family History Other Family history of hypertension Social History (Updated 12/11/24 @ 00:27 by Rylie Boykin RN) Smoking Status: Former smoker alcohol intake: former current occupational status: disabled and other Travel in the last 8 weeks: None Have you lived/traveled outside US in past 30 days?: No Contact w/someone who lives/traveled outside US past 30 days?: No Exposure to someone with infectious disease in past 14 days?: No Do you have a fever (greater than 100.4 F or 38 C)?: No Have you tested positive for COVID-19: No Exposed to someone with COVID-19 in past 14 days?: No Do you have a sore throat?: No Do you have a cough?: No Do you have any weakness?: No Do you have any diarrhea?: No Are you experiencing any unusual bleeding?: No Do you have any muscle aches/pain?: No Do you have any abdominal pain?: No Are you experiencing loss of taste or smell?: No Other Medical History Have you received the Flu Vaccine for this season: No Have you received the Pneumonia Vaccine: No Review of Systems Review of Systems Review of systems:: other Review of systems (narrative): Negative except for HPI Meds Home Medications and Allergies Home Medications ?Medication ?Instructions ?Recorded ?Confirmed ?Type aripiprazole 2 mg tablet 2 mg PO HS 05/23/22 12/11/24 History ascorbic acid (vitamin C) 500 mg 500 mg PO DAILY 09/24/23 12/11/24 History tablet calcium 600 mg (as 1 tab PO DAILY 09/24/23 12/11/24 History carbonate)-vitamin D3 10 mcg (400 unit) tablet (Calcium 600 + D(3)) ferrous sulfate 325 mg (65 mg 325 mg PO PM 09/24/23 12/11/24 History iron) tablet (FeroSul) spironolactone 25 mg tablet 25 mg PO BIDP PRN Edema 09/24/23 12/11/24 History venlafaxine 75 mg capsule,extended 75 mg PO HS 09/24/23 12/11/24 History release 24 hr potassium chloride 20 mEq 20 meq PO DAILY 30 days #30 tabs 10/09/23 12/11/24 Rx tablet,extended release(part/cryst) (Klor-Con M) vits no.130-ferrous fum 1 tab PO 1700 30 days #30 tabs 10/09/23 12/11/24 Rx 27 mg iron-folic acid 800 mcg tablet ( Vitamin) levothyroxine 137 mcg tablet 137 mcg PO DAILYDM 03/15/24 12/11/24 History (Synthroid) furosemide 80 mg tablet (Lasix) 80 mg PO DAILY #30 tabs 03/16/24 12/11/24 Rx venlafaxine 150 mg 150 mg PO HS 03/16/24 12/11/24 History capsule,extended release 24 hr New Prescriptions to Start Prescriptions: Allergies Allergy/AdvReac Type Severity Reaction Status Date / Time tizanidine Allergy Mild Verified 09/24/23 23:17 Exam Data for Last 24 hours Vital signs and Labs for Last 24 Hours: Temp Pulse Resp BP Pulse Ox O2 Del Method 97.9 F 100 H 16 108/70 L 100 Room Air 12/10/24 22:35 12/10/24 22:35 12/10/24 22:35 12/10/24 22:35 12/10/24 21:00 12/10/24 22:35 Laboratory Results - last 24 hr 12/10/24 16:55: WBC 5.1, RBC 4.17 L, Hgb 12.7, Hct 37.8, MCV 90.6, MCH 30.5, MCHC 33.6, RDW 14.0, Plt Count 66 L, MPV 9.8, Neut % (Auto) 70.7, Lymph % (Auto) 20.6, Armstrong % (Auto) 7.3, Eos % (Auto) 0.8, Baso % (Auto) 0.4, Neut # (Auto) 3.6, Lymph # (Auto) 1.0, Armstrong # (Auto) 0.4, Eos # (Auto) 0.0, Baso # (Auto) 0.0, Sodium 131 L, Potassium 5.3 H, Chloride 89 L, Carbon Dioxide 39 H, Anion Gap 8.3, BUN 21 H, Creatinine 0.30 L, Estimated Creat Clear 56, Estimated GFR 224, Est GFR ( Amer) 271, Glucose 540 H*, Hemoglobin A1c 12.1 H, Lactate 2.1, Calcium 9.7, Total Bilirubin 1.9 H, AST 91 H, ALT 71, Alkaline Phosphatase 443 H , Troponin I 0.02, Total Protein 6.9 D, Albumin 3.9, Globulin 3.0, Albumin/Globulin Ratio 1.3, Acetone Level None detected 12/10/24 17:05: Urine Color Yellow, Urine Appearance Clear, Urine pH 6.5, Ur Specific [place] 1.010, Urine Protein Negative, Urine Glucose (UA) 3+, Urine Ketones Negative, Urine Blood 3+ A, Urine Nitrate Negative, Urine Bilirubin Negative, Urine Urobilinogen 0.2, Ur Leukocyte Esterase Negative, Urine RBC 20- 50, Urine WBC None, Ur Squamous Epith Cells 3-5, Urine Bacteria Trace 12/10/24 17:48: SARS-CoV-2 (PCR) Not detected, Influenza A Untype (PCR) Not detected, Influenza Type B (PCR) Not detected 12/10/24 21:06: Troponin I < 0.01 12/10/24 21:40: Lactate 1.4 I & O for Last 24 hours: Intake & Output 12/07/24 12/08/24 12/09/24 12/10/24 23:59 23:59 23:59 23:59 Weight 62.596 kg Constitutional Constitutional: no acute distress *Routine HEENT Exam Head: Present normocephalic Eye: Present EOMI and PERRL ENT: Present mucous membranes moist *Routine Neck Exam Neck: Present supple; Absent lymphadenopathy *Routine Respiratory Exam Respiratory: Present CTA bilaterally *Routine Cardiovascular Exam Cardiovascular: Present RRR *Routine Abdominal Exam Abdominal: Present soft and normoactive bowel sounds; Absent tenderness *Routine Rectal Exam Rectal:: deferred *Routine Genitalia Exam Genitalia:: deferred *Routine Extremities Exam Extremities: Absent cyanosis, clubbing or edema *Routine Skin Exam Comments: Ecchymosis and scattered stages of healing across upper extremities. *Routine Neurological Exam Neurological: Present alert and oriented X3 Assessment and Plan *Assessment and plan (1) Type 2 diabetes mellitus with hyperglycemia: Status: Acute Qualifiers: Diabetes mellitus terminal operations supervisor insulin use: without terminal operations supervisor use Qualified Code(s): E11.65 - Type 2 diabetes mellitus with hyperglycemia Category: Medical Code(s): E11.65 - Type 2 diabetes mellitus with hyperglycemia (2) Traumatic ecchymosis of left upper arm: Status: Acute Qualifiers: Encounter type: subsequent encounter Qualified Code(s): S40.022D - Contusion of left upper arm, subsequent encounter Category: Medical Code(s): S40.022A - Contusion of left upper arm, initial encounter (3) Traumatic ecchymosis of right upper arm: Status: Acute Qualifiers: Encounter type: subsequent encounter Qualified Code(s): S40.021D - Contusion of right upper arm, subsequent encounter Category: Medical Code(s): S40.021A - Contusion of right upper arm, initial encounter (4) Thrombocytopenia: Status: Acute Category: Medical Code(s): D69.6 - Thrombocytopenia, unspecified (5) Hypothyroidism: Status: Acute Qualifiers: Hypothyroidism type: acquired Qualified Code(s): E03.9 - Hypothyroidism, unspecified Category: Medical Code(s): E03.9 - Hypothyroidism, unspecified (6) Declining functional status: Status: Acute Category: Medical Code(s): R53.81 - Other malaise (7) Cirrhosis: Status: Acute Category: Medical Code(s): K74.60 - Unspecified cirrhosis of liver Plan Admit to medicine #T2DM with hyperglycemia Has not been on medication since diagnosis last year A1c of 12. Initiate ACHS sliding scale low-dose with frequent sugar checks Continue IV fluid hydration Diabetic diet #Traumatic ecchymosis of bilateral upper extremities #Thrombocytopenia 2/2 cirrhosis. Patient reports AVILES. LFTs unremarkable at this time except for alk phos mildly elevated Avoid anticoagultion at this time SCDs for dvt ppx #Cirrhosis Patient reports being compliant with home Lasix INR/PT pending LFTs w mildly elevated AST, otherwise stable #Hypothyroidism Check TSH and free T4 Continue levothyroxine
[2024-12-11] VITALS (21 sets, daily range): BP systolic 80–107; BP diastolic 42–64; PULSE 95–120; RESP 12–28; TEMP 36.6–37.6; O2SAT 88–100; BMI 22.4
[2024-12-11 01:01] LABS: Troponin I < 0.01 ng/ml (0.00-0.034)
[2024-12-11 01:58] LABS: POC Glucose,Bedside 195 (70-110)
[2024-12-11 01:58] LABS: POC Glucose,Bedside 411 (70-110)
--- NOTE | 2024-12-11 04:03 | PC.NURSE ---
Pt. was admitted overnight from the ED with Hyperglycemia, weakness, falls at home. Pt states that she has not felt well for 1-2 weeks. She has type 2 Diabetes, She said she was drinking sugary drinks this past week and has had increased urination, weakness, and falls. Pt lives by self and did not feel like she could care for herself tonight. Pt. blood glucose in the ED was 520, she got 2 liters of NS in ED. upon arrival to med/surg. Pt. glucose was 411. she got 6 units of Insulin SQ and 2 hours later blood glucose was 195. . Pt. is alert and orientated x 4. Pt. is on room air. Pt. has a motorized wheelchair to get around and she states she occasionally uses a walker. Pt. has had several falls this week with her urinating so much the floor was wet and slippery. Pt. has bruising to both arms and some on the upper back. Blood sugars checked frequently. . Pt. sleeping well. VSS. Personal items and call swanson in reach.
[2024-12-11 05:04] LABS: POC Glucose,Bedside 208 (70-110)
[2024-12-11 06:22] LABS: Basophils % 0.4 % (0.1-2.0); Eosinophils # 0.1 K/mm3 (0.0-0.4); Eosinophils % 0.6 % (0.1-12.0); Hematocrit 30.1 % (37.0-47.0); Lymphocytes # 0.9 K/mm3 (0.7-4.5); Lymphocytes % 8.4 % (10-50); Mean Corpuscular HGB Conc 34.2 g/dL (31.8-35.4); Mean Corpuscular Hemoglobin 31.4 pg (27.0-31.2); Mean Corpuscular Volume 91.8 fl (81-99); Mean Platelet Volume 10.1 fl (7.4-10.4); Monocytes # 0.8 K/mm3 (0.1-1.0); Monocytes % 7.7 % (1.7-9.3); Neutrophils # 8.4 K/mm3 (1.8-7.8); Neutrophils % 82.3 % (37.0-80.0); Platelet Count 70 K/mm3 (142-424); Red Blood Count 3.28 M/mm3 (4.20-5.40); Red Cell Distribution Width 14.3 % (11.5-17.5); White Blood Count 10.2 K/mm3 (4.8-10.8)
[2024-12-11 06:24] LABS: POC Glucose,Bedside 203 (70-110)
[2024-12-11 06:28] LABS: Chloride 100 mmol/L (98-107); Potassium 3.9 mmoL/L (3.5-5.1); Sodium 136 mmol/L (136-145)
[2024-12-11 06:30] LABS: INR 1.19 (0.9-1.1); Prothrombin Time 13.1 seconds (10.1-12.5)
[2024-12-11 06:31] LABS: Anion Gap 6.9 mEq/L (5-15); Blood Urea Nitrogen 16 mg/dl (7-17); Carbon Dioxide 33 mmol/L (22.0-30.0); Cholesterol 91 mg/dl (140-200); Creatinine Clearance Estimated 54 mL/min (50-200); Estimated Glomerular Filt Rate 124 ml/min (>60); GFR (African American) 150 ML/MIN (>60); Triglycerides 84 mg/dl (30-150); VLDL Cholesterol 17 mg/dL (0-40)
[2024-12-11 06:32] LABS: Calcium 8.4 mg/dl (8.4-10.2); Glucose 189 mg/dl (74-100); HDL Cholesterol 46 mg/dl (40-60)
[2024-12-11 06:55] LABS: Direct LDL Cholesterol < 30.00 mg/dL (100-129); Magnesium 1.3 mg/dl (1.6-2.3)
[2024-12-11 07:01] LABS: Thyroid Stimulating Hormone 6.83 uIU/mL (0.465-4.68)
[2024-12-11 07:13] LABS: Free T4 (Free Thyroxine) 1.38 ng/dl (0.78-2.19)
[2024-12-11 07:18] LABS: Hemoglobin 10.3 g/dL (12.2-16.2)
[2024-12-11] MEDS: LACTATED RINGERS 1000ML 1,000 ML 500 ML IV (07:46)
[2024-12-11 07:51] LABS: POC Glucose,Bedside 217 (70-110)
[2024-12-11] MEDS: humaLOG 100 UNITS/ML 10ML VIAL (SSI) SUBCUT ×4 (07:55→20:35)
--- NOTE | 2024-12-11 08:06 | HMH.PHAINT1 ---
Pharmacy Intervention Comments: MEDICATION RECONCILIATION COMPLETE USING RX BOTTLES AND EXTERNAL PHARMACY FILL HISTORY.
--- NOTE | 2024-12-11 08:49 | P.PN_ITS ---
Subjective *Date: 12/11/24 *Time: 23:24 Interval history: On morning rounds patient became hypotensive and slightly confused. Concern for UTI. Initiated on antibiotics. Patient remained afebrile and stable on room air. Blood pressure soft however. Denies nausea or vomiting. Just felt very weak and ill. Medical Exam Vital signs and Labs for Last 24 Hours: Vital Signs Temp Pulse Pulse Resp BP BP Pulse Ox 12/11/24 08:40 114 H 87/50 L 12/11/24 06:20 12/11/24 05:00 12/11/24 04:00 99.2 F 120 H 13 106/46 L 92 L 12/11/24 03:00 12/11/24 01:00 12/10/24 23:48 97.8 F 72 14 113/47 L 73 L 12/10/24 23:45 12/10/24 23:45 12/10/24 22:35 97.9 F 100 H 16 108/70 L 12/10/24 21:00 101 H 105/67 L 100 12/10/24 20:00 103 H 109/59 L 99 12/10/24 19:30 96 H 108/58 L 99 12/10/24 19:00 104 H 119/62 100 12/10/24 18:37 44 L 109/63 L 12/10/24 16:30 120/69 12/10/24 16:11 101 H 89 L 12/10/24 16:09 101 H 94 L 12/10/24 16:05 97.9 F 100 H 18 114/66 99 O2 Del Method 12/11/24 08:40 12/11/24 06:20 Room Air 12/11/24 05:00 Room Air 12/11/24 04:00 Room Air 12/11/24 03:00 Room Air 12/11/24 01:00 Room Air 12/10/24 23:48 Room Air 12/10/24 23:45 Room Air 12/10/24 23:45 Room Air 12/10/24 22:35 Room Air 12/10/24 21:00 12/10/24 20:00 12/10/24 19:30 12/10/24 19:00 12/10/24 18:37 12/10/24 16:30 12/10/24 16:11 12/10/24 16:09 12/10/24 16:05 Room Air Intake and Output 12/10/24 12/11/24 12/11/24 23:59 07:59 15:59 Intake Total 2901 / 2901 Output Total 325 / 325 Balance 2576 / 2576 Intake: Intake, Total IV Amount 2901 / 2901 0.9 % Sodium Chloride 1000ML 1, 901 / 901 000 ml @ 100 mls/hr IV .Q10H MAINE Rx#:[id number] 0.9 % Sodium Chloride 1000ML 1, 1000 / 1000 000 ml @ 250 mls/hr IV .Q4H ONE Rx#:[id number] 0.9 % Sodium Chloride 1000ML 1, 1000 / 1000 000 ml @ 999 mls/hr IV .Q1H1M ONE Rx#:[id number] Output: Output, Urine Amount 325 / 325 Other: Weight 59.874 kg Laboratory Results - last 24 hr 12/10/24 16:55: WBC 5.1, RBC 4.17 L, Hgb 12.7, Hct 37.8, MCV 90.6, MCH 30.5, MCHC 33.6, RDW 14.0, Plt Count 66 L, MPV 9.8, Neut % (Auto) 70.7, Lymph % (Auto) 20.6, [place] % (Auto) 7.3, Eos % (Auto) 0.8, Baso % (Auto) 0.4, Neut # (Auto) 3.6, Lymph # (Auto) 1.0, [place] # (Auto) 0.4, Eos # (Auto) 0.0, Baso # (Auto) 0.0, Sodium 131 L, Potassium 5.3 H, Chloride 89 L, Carbon Dioxide 39 H, Anion Gap 8.3, BUN 21 H, Creatinine 0.30 L, Estimated Creat Clear 56, Estimated GFR 224, Est GFR ( Amer) 271, Glucose 540 H*, Hemoglobin A1c 12.1 H, Lactate 2.1, Calcium 9.7, Total Bilirubin 1.9 H, AST 91 H, ALT 71, Alkaline Phosphatase 443 H , Troponin I 0.02, Total Protein 6.9 D, Albumin 3.9, Globulin 3.0, Albumin/Globulin Ratio 1.3, Acetone Level None detected 12/10/24 17:05: Urine Color Yellow, Urine Appearance Clear, Urine pH 6.5, Ur Specific [place] 1.010, Urine Protein Negative, Urine Glucose (UA) 3+, Urine Ketones Negative, Urine Blood 3+ A, Urine Nitrate Negative, Urine Bilirubin Negative, Urine Urobilinogen 0.2, Ur Leukocyte Esterase Negative, Urine RBC 20- 50, Urine WBC None, Ur Squamous Epith Cells 3-5, Urine Bacteria Trace 12/10/24 17:48: SARS-CoV-2 (PCR) Not detected, Influenza A Untype (PCR) Not detected, Influenza Type B (PCR) Not detected 12/10/24 21:06: Troponin I < 0.01 12/10/24 21:40: Lactate 1.4 12/10/24 23:01: POC Glucose 411 H* 12/11/24 00:15: Troponin I < 0.01 12/11/24 01:41: POC Glucose 195 H 12/11/24 04:25: POC Glucose 208 H 12/11/24 05:23: Free T4 1.38 12/11/24 05:32: WBC 10.2 D, RBC 3.28 L, Hgb 10.3 L D, Hct 30.1 L, MCV 91.8, MCH 31.4 H, MCHC 34.2, RDW 14.3, Plt Count 70 L, MPV 10.1, Neut % (Auto) 82.3 H, Lymph % (Auto) 8.4 L, [place] % (Auto) 7.7, Eos % (Auto) 0.6, Baso % (Auto) 0.4, Neut # (Auto) 8.4 H, Lymph # (Auto) 0.9, Kinney # (Auto) 0.8, Eos # (Auto) 0.1, Baso # (Auto) 0.0, PT 13.1 H, INR 1.19 H, Sodium 136, Potassium 3.9 D, Chloride 100, Carbon Dioxide 33 H, Anion Gap 6.9, BUN 16, Creatinine 0.50 L D, Estimated Creat Clear 54, Estimated GFR 124, Est GFR ( Amer) 150 D, Glucose 189 H D, Calcium 8.4, Magnesium 1.3 L, Triglycerides 84, Cholesterol 91 L, LDL Cholesterol Direct < 30.00 L, VLDL Cholesterol 17, HDL Cholesterol 46, Choles terol/HDL Ratio 2.0, TSH 6.83 H 12/11/24 05:33: POC Glucose 203 H 12/11/24 07:40: POC Glucose 217 H I & O for Labs for Last 24 Hours: Intake & Output 12/08/24 12/09/24 12/10/24 12/11/24 23:59 23:59 23:59 23:59 Intake Total 2901 / 2901 Output Total 325 / 325 Balance 2576 / 2576 Weight 59.874 kg Constitutional: Present moderate distress, average body habitus and cooperative Head: Present atraumatic and normocephalic ENT: Present normal exam Respiratory: Present normal respiratory effort; Absent rhonchi, wheezes or crackles Cardiac: Present Reg Rate and Rhythm and Systolic Murmur GI: Present soft, distention, tenderness (Nonfocal) and normal bowel sounds Extremities: Present normal inspection, full ROM and edema (3+ to thighs) Skin: Present intact and ecchymosis; Absent erythema Comment:: Bruising on legs and arms Neuro: Present Grossly Intact, alert, awake, oriented x 3 and moves all extremities Comment:: Globally weak Assessment and Plan *Assessment and plan (1) Type 2 diabetes mellitus with hyperglycemia: Status: Acute Qualifiers: Diabetes mellitus fdc insulin use: without termite treater use Qualified Code(s): E11.65 - Type 2 diabetes mellitus with hyperglycemia Category: Medical Code(s): E11.65 - Type 2 diabetes mellitus with hyperglycemia (2) UTI (urinary tract infection): Status: Acute Category: Medical Code(s): N39.0 - Urinary tract infection, site not specified (3) Traumatic ecchymosis of left upper arm: Status: Acute Qualifiers: Encounter type: subsequent encounter Qualified Code(s): S40.022D - Contusion of left upper arm, subsequent encounter Category: Medical Code(s): S40.022A - Contusion of left upper arm, initial encounter (4) Traumatic ecchymosis of right upper arm: Status: Acute Qualifiers: Encounter type: subsequent encounter Qualified Code(s): S40.021D - Contusion of right upper arm, subsequent encounter Category: Medical Code(s): S40.021A - Contusion of right upper arm, initial encounter (5) Thrombocytopenia: Status: Acute Category: Medical Code(s): D69.6 - Thrombocytopenia, unspecified (6) Hypothyroidism: Status: Acute Qualifiers: Hypothyroidism type: acquired Qualified Code(s): E03.9 - Hypothyroidism, unspecified Category: Medical Code(s): E03.9 - Hypothyroidism, unspecified (7) Declining functional status: Status: Acute Category: Medical Code(s): R53.81 - Other malaise (8) Cirrhosis: Status: Acute Category: Medical Code(s): K74.60 - Unspecified cirrhosis of liver (9) Cirrhosis: Status: Acute Qualifiers: Ascites presence: with ascites Hepatic cirrhosis type: unspecified hepatic cirrhosis Qualified Code(s): K74.60 - Unspecified cirrhosis of liver; R18.8 - Other ascites Category: Medical Code(s): K74.60 - Unspecified cirrhosis of liver Plan 63-year-old female with cirrhosis and debility who presented with new diagnosis of diabetes. A1c of 12. This morning on rounds had hypotension. Tachycardic with doubling of white count. Neutrophil predominance. Concern for early signs of sepsis. Initiated on broad-spectrum antibiotics for suspected UTI. Continues to require inpatient management. Problems addressed as follows: #SIRS versus sepsis -Patient's blood pressure became soft this morning, systolic in the 80s. Administering additional 1 L bolus over 2 hours of LR. Potential source with urine given trace bacteria and her significant polyuria with glucosuria. Patient is also cirrhotic, risk of SBP. -Initiate ceftriaxone 2 g once today. Reevaluate antibiotics in the morning. -White count doubled from 5-10. Neutrophil predominant with over 80% neutrophils -Blood cultures and urine culture obtained and pending. Lactic acid 1.5 this morning.. -Patient is tachycardic in the 110s, hypotensive with systolic less than 90. -Repeat CBC, CMP, magnesium, INR ordered for the morning #T2DM with hyperglycemia -Uncontrolled diabetes. A1c of 12. Initiated on sliding scale. Will consider initiating basal insulin this evening pending sliding scale needs over the course of the day. - diabetic diet #Traumatic ecchymosis of bilateral upper extremities #Thrombocytopenia 2/2 cirrhosis. Patient reports THAO. LFTs unremarkable at this time except for alk phos mildly elevated Avoid anticoagultion at this time SCDs for dvt ppx #Cirrhosis Patient reports being compliant with home Lasix INR 1.2. LFTs w mildly elevated AST, otherwise stable #Hypothyroidism Check TSH and free T4 Continue levothyroxine Debility: PT and OT evaluating patient. Recommend placement. Case management assisting with recommendations DNI Diabetic diet Holding anticoagulation in setting of thrombocytopenia with platelets of 70
--- NOTE | 2024-12-11 08:50 | CA_ITS ---
APPROVED REPORT EXAM: Comprehensive 2D, Doppler, and color-flow Echocardiogram Principal Research Economist: Shelby Cole RCS, RVS Ht: 5 ft 4 in Wt: 132lbs BSA: 1.64 HR: 108 bpm BP: 114/66 mmHg Indications: Murmur evaluate for , Tachycardia, DM, Edema, Ex-smoker, Fatigue, Arnold Chiari malformation-Wheelchair bound > 6 years Echo Enhancing Agent Comments: Technically limited due to body habitus and Lung impedance: please refer to CXR 2D Dimensions IVSd 0.84 cm LVEF (Visual) 72.50 % PWd 0.96 cm LVEF ([place]'s) 58.20 % LVDd 4.53 cm LV Volume 102.90 mL LVDs 2.65 cm LV Volume Index 62.702973 mL/m2 F: 29 - 61 Left Atrium 3.70 cm LA Volume 75.00 mL RVID Base (AP4) 3.48 cm (M/F) 2.5-4.1 LA Volume Index 45.574739 mL/m2 (M/F) 16-34 EF AP4 59.70 % EF AP2 53.6 % EF BP 58.2 % GL Strain -14.7 % M-Mode Dimensions LVDd 4.53 cm (3.5-5.7) Ao Diam 2.89 cm (2.0-3.7) LVDs 2.65 cm (3.5-5.7) IVSd 0.84 cm (0.6-1.1) PWd 0.96 cm (0.6-1.1) EPSs 0.37 cm FS 41.50% TAPSE 1.64 (<1.7) LV Diastology E Decel Time 158 (160-240 msec) E/A Ratio 0.83 MED E' 8.9 (>= 7 cm/sec) MED A' 10.80 cm/s E'/MED E' Ratio 7.96 (<= 14) LAT E' 10.0 (>= 10 cm/sec) LAT A' 14.10 cm/s E/LAT E' Ratio 7.08 (<= 14) Aortic Valve LVOT Max 153.0 (70-110 cm/s) LVOT VTI 29.40 cm AoV Peak Arnold. 209.0 (50-130 cm/s) AO Peak GR. 17.50 mmHg AO Mean GR. 9.60 (<5 mmHg) AO VTI 38.2 (18-25 cm) Mitral Valve MV E Max Arnold. 71.0 (40-130 cm/s) MV A Velocity 86.0 (40-130 cm/s) E/A Ratio 0.83 MV Decel. Time 158 (160-240 ms) Tricuspid Valve TR P. Velocity 288.00 cm/s RAP Estimate 10.00 mmHg RVSP 43.20 mmHg Left Ventricle The left ventricle is normal size. The left ventricular systolic function is normal. The left ventricular ejection fraction is within the normal range. There is normal left ventricular wall thickness. There is normal LV segmental wall motion. The left ventricular diastolic function is normal. LVEF is 55%. Right Ventricle The right ventricle is normal size. The right ventricular systolic function is normal. Atria The left atrium size is normal. The right atrium size is normal. There is no Doppler evidence of interatrial shunt. Aortic Valve The aortic valve is mildly thickened.Trace aortic regurgitation. Borderline aortic stenosis is present. DEANNE is 2.0 cm2. Peak velocity 2.1 m/s. Mean AV gradient 10 mmHg. Max AV gradient 18 mmHg. Mitral Valve The mitral valve is normal in structure. No evidence of mitral valve stenosis. Trace mitral regurgitation. Tricuspid Valve Tricuspid valve is grossly normal in structure and function. Mild tricuspid regurgitation. RVSP is 30-35 mmHg. Pulmonic Valve The pulmonary valve is normal in structure. Trace pulmonic regurgitation. Great Vessels The aortic root is normal in size. IVC is normal in size and collapses >50% with inspiration. Pericardium There is no pericardial effusion. Other Information Study Quality: Fair Conclusion Normal biventricular systolic function. Borderline (DEANNE is 2.0 cm2. Peak velocity 2.1 m/s. Mean AV gradient 10 mmHg. Max AV gradient 18 mmHg). Mild TR. Electronically signed by : Libby Velázquez MD 12/11/2024 12:16:49
[2024-12-11] MEDS: LEVOTHYROXINE 137MCG (0.137MG) TAB 137 MCG PO (09:15)
[2024-12-11 09:53] LABS: Lactic Acid 1.5 mmol/L (0.7-2.1)
[2024-12-11] MEDS: CEFTRIAXONE SODIUM 2 GM in 0.9 % SODIUM CHLORIDE 100 ML IV (10:23)
--- NOTE | 2024-12-11 11:40 | PC.NURSE ---
All patient care and documentation completed by Temitope RODRIGUEZ was completed under my direct supervision. Yi Buchanan RN
[2024-12-11 11:56] LABS: POC Glucose,Bedside 208 (70-110)
[2024-12-11] MEDS: MAGNESIUM SULFATE IN WATER 2 GM/50 ML PIGGYBACK IV ×3 (14:24→16:09)
--- NOTE | 2024-12-11 15:31 | SW/DCPLANNER ---
Addendum entered by Matilda Prado 12/12/24 13:09: [facility] started a precert and is approved. Jane Talent Analyst Addendum entered by Jeny West 12/12/24 08:39: [facility] patient due to bed availability. Patient is agreeable for information to be faxed to [facility] at this time. CM will continue to follow. Discharge date is unknown. Original Note: I spoke w/ this patient regarding discharge plans. PT evaluated patient and recommended SNF level of care. Patient stated that she is only agreeable to [facility] at this time. Patient information has been faxed to [facility]/ [facility]. I will follow up once Carole reviews patient information. Discharge date is unknown at this time.
--- NOTE | 2024-12-11 16:03 | HMH.PTEV ---
Physical Therapy Evaluation Rehab PT IP Evaluation Start: 12/11/24 09:44 Freq: ONCE Status: Active Protocol: Document 12/11/24 15:53 GUSTAVO (Rec: 12/11/24 16:03 GUSTAVO [id number]) Subjective/History History History 63-year-old female with Aviles cirrhosis, hypertension, lymphedema, hypothyroidism who presents emergency department today with complaints of urinary frequency. She reports being in her normal state of health until this week when she developed significantly increased urinary frequency. States that she was diagnosed with diabetes approximately 1 year ago but attempted to diet manages this. States that she has been cutting out sugar until most recently. States that she had been drinking sugary drinks this week but was unaware that her urinary symptoms were likely related to her DM. Pt reports she lives alone, no MIKE the home, and she is generally able to ambulate short distances with RW at home, but uses a motorized chair for the majority of her mobility needs . Subjective Subjective Pt c/o feeling tired, but is agreeable to OOB mobility assessment this . [facility] How much help from another person do you currently need... Turning from your back to your side A little while in a flat bed without using bedrails? Moving from lying on back to sitting on A little the side of a flat bed without using bedrails? Moving to and from a bed to a chair ( A little including a wheelchair)? Standing up from a chair using your arms A little ? (e.g., wheelchair, bedside chair) Walking in hospital room? A lot Climbing 3-5 steps with a railing? A lot Mobility Score 16 Mobility Level [facility] Mobility Calculator Mobility 5 Stand (1 or more minutes) Rehab PT IP Eval Objective Appearance Patient Behavior Appropriate Patient Orientation Person,Place,Time Difficulty following instructions none Speech Pattern Clear Ambulation Patient Able to Ambulate No Balance Ability to Arise Able, uses arms to help Sitting Balance Steady, safe Standing Balance Unsteady Dynamic Sitting Balance Ability Fair Dynamic Standing Balance Ability Poor Transfers Bed Transfer Ability Contact Guard/Hand Hold Chair Transfer Ability Minimal x 1 (25% assist) Sit to Stand Bed Transfer Ability Minimal x 1 (25% assist) Sit to Stand Chair Transfer Ability Minimal x 1 (25% assist) ROM All Extremities PT ROM Status ABN Abnormal ROM Comment limited at baseline MMT All Extremities PT MMT ABN Abnormal MMT Grade 3/5 within available ROM Rehab PT IP prob,goals,plan Problems Date of Evaluation: 12/11/24 PT IP Problems Bed Mobility,Transfers,Gait Rehab Potential Rehab Potential Good Plan PT Intervention Plan Bed Mobility,Transfers,Gait, Therapeutic Exercise PT Plan Frequency Daily Duration LOS Discharge Goals Bed Transfer Ability Supervision/Stand by Sit to Stand Chair Transfer Ability Contact Guard/Hand Hold Discharge Plan PT Discharge Plan Pt is currently most appropriate for rehab placement once medically stable for d/c. Skilled acute therapy services are indicated to imrprove bed mobility, transfers, and strength in order to aid pt return to [facility] . Eval Complexity Eval Charge Codes 75246 - High Complexity PHYSICIAN CERTIFICATION: I certify the specified therapy services for Tiffanie Dennison are required, authorized, and reviewed every 30 days.
[2024-12-11 16:15] LABS: POC Glucose,Bedside 195 (70-110)
[2024-12-11 17:59] LABS: Microscopic, Urine URINE MICROSCOPIC (MICROSCOPIC)
[2024-12-11 18:27] LABS: Bilirubin,Urine Negative (Negative); Blood, Urine 3+ (Negative); Color,Urine YELLOW (Yellow); Glucose,Urine (UA) 1+ (Negative); Ketones,Urine Negative (Negative); Leukocyte Esterase,Urine TRACE (Negative); Nitrate,Urine Negative (Negative); Protein,Urine Negative (Negative); Urobilinogen,Urine 0.2 EU/dl (0.2)
[2024-12-11 18:30] LABS: Appearance,Urine Slightly Cloudy (Clear)
[2024-12-11 19:22] LABS: Bacteria,Urine 1+ /lpf; Calcium Oxalate Crystals,Urine 1+ /lpf
[2024-12-11] MEDS: ARIPIPRAZOLE 2 MG 1 EACH PO (20:35)
[2024-12-11] MEDS: VENLAFAXINE XR 75MG CAPSULE 225 MG PO (20:35)
[2024-12-12] VITALS (8 sets, daily range): BP systolic 92–119; BP diastolic 46–65; PULSE 79–100; RESP 11–23; TEMP 36.4–37; O2SAT 94–100; BMI 22.6
[2024-12-12 03:23] LABS: POC Glucose,Bedside 241 (70-110)
[2024-12-12] MEDS: humaLOG 100 UNITS/ML 10ML VIAL (SSI) SUBCUT ×4 (06:13→21:17)
[2024-12-12 06:32] LABS: POC Glucose,Bedside 244 (70-110)
[2024-12-12] MEDS: LEVOTHYROXINE 137MCG (0.137MG) TAB 137 MCG PO (06:35)
[2024-12-12 06:47] LABS: INR 1.28 (0.9-1.1)
[2024-12-12 06:59] LABS: Basophils % 0.4 % (0.1-2.0); Eosinophils # 0.1 K/mm3 (0.0-0.4); Eosinophils % 1.8 % (0.1-12.0); Hematocrit 30.2 % (37.0-47.0); Hemoglobin 10.1 g/dL (12.2-16.2); Lymphocytes # 1.1 K/mm3 (0.7-4.5); Lymphocytes % 19.3 % (10-50); Mean Corpuscular HGB Conc 33.4 g/dL (31.8-35.4); Mean Corpuscular Hemoglobin 31.4 pg (27.0-31.2); Mean Corpuscular Volume 93.8 fl (81-99); Mean Platelet Volume 9.6 fl (7.4-10.4); Monocytes # 0.7 K/mm3 (0.1-1.0); Monocytes % 12.7 % (1.7-9.3); Neutrophils # 3.7 K/mm3 (1.8-7.8); Neutrophils % 65.3 % (37.0-80.0); Platelet Count 51 K/mm3 (142-424); Red Blood Count 3.22 M/mm3 (4.20-5.40); Red Cell Distribution Width 14.6 % (11.5-17.5); White Blood Count 5.7 K/mm3 (4.8-10.8)
[2024-12-12 07:13] LABS: Albumin Level 2.6 g/dl (3.5-5.0); Chloride 99 mmol/L (98-107)
[2024-12-12 07:14] LABS: Potassium 3.5 mmoL/L (3.5-5.1); Sodium 133 mmol/L (136-145)
[2024-12-12 07:16] LABS: Alanine Aminotransferase 46 U/L (12-78); Albumin/Globulin Ratio 1.1 (1.1-1.8); Anion Gap 5.5 mEq/L (5-15); Aspartate Amino Transferase 53 U/L (14-36); Blood Urea Nitrogen 14 mg/dl (7-17); Carbon Dioxide 32 mmol/L (22.0-30.0); Creatinine Clearance Estimated 54 mL/min (50-200); Estimated Glomerular Filt Rate 124 ml/min (>60); GFR (African American) 150 ML/MIN (>60); Globulin 2.4 g/dL (1.3-3.2)
[2024-12-12 07:17] LABS: Alkaline Phosphatase 238 U/L (38-126); Bilirubin,Total 1.4 mg/dl (0.2-1.3); Calcium 8.3 mg/dl (8.4-10.2); Glucose 230 mg/dl (74-100); Magnesium 1.9 mg/dl (1.6-2.3)
--- NOTE | 2024-12-12 07:30 | CT_ITS ---
FINAL REPORT TECHNIQUE: Oral and IV contrast enhanced exam. Coronal and sagittal images were obtained and reviewed. This study was performed with techniques to keep radiation doses as low as reasonably achievable, (ALARA). Individualized dose reduction techniques using automated exposure control or adjustment of mA and/or kV according to the patient''s size were employed. CLINICAL HISTORY: ? infection of Left pelvis, hip and femur COMPARISON: 11/20/2023 FINDINGS: Abdomen: No acute density is seen within the lung bases. There is a cirrhotic appearance of the liver. Moderate splenomegaly is noted. The pancreas is atrophic. Mild pancreatic ductal dilatation is noted. Pancreatic head calcifications are compatible with chronic pancreatitis. Nonobstructing bilateral renal stones are noted. There is cholelithiasis. Minimal ascites is noted in the upper abdomen, probably related to liver disease. No evidence of bowel obstruction. There is no adenopathy. Pelvis: The appendix is not visualized. There is moderate fecal impaction. No evidence of pelvic abscess. The urinary bladder is decompressed with a Cruz catheter present. Diffuse stranding is noted of subcutaneous fat within the abdomen and pelvis, more pronounced overlying the lateral left pelvis and upper thigh. Asymmetric stranding is chronic since the previous exam without evidence of subcutaneous abscess. There is a lack of opacification in the right common femoral vein, DVT not excluded. The left common femoral vein is patent. IMPRESSION: No evidence of pelvic abscess. Asymmetric subcutaneous stranding and skin thickening of the left pelvis. Although CT appearance raises the question of cellulitis, this has been stable for greater than 1 year. Right common femoral vein DVT not excluded. Cirrhosis with findings of portal hypertension. Reviewed, Interpreted and Dictated by Danielle Curry MD Transcribed by Sofia Butts Authenticated and [facility]
--- NOTE | 2024-12-12 07:30 | CT_ITS ---
FINAL REPORT TECHNIQUE: Thin section axial images were obtained of the left hip and femur after the administration of IV contrast. Coronal and sagittal images were obtained and reviewed. This study was performed with techniques to keep radiation doses as low as reasonably achievable, (ALARA). Individualized dose reduction techniques using automated exposure control or adjustment of mA and/or kV according to the patient's size were employed. CLINICAL HISTORY: ? infection of Left pelvis, hip and femur COMPARISON: None FINDINGS: There is localized edema of the superficial subcutaneous tissues of the posterior lateral left upper and mid thigh. Fluid is not loculated to indicate abscess. No gas is seen in the soft tissues. There is no evidence of intramuscular fluid collection. No bony abnormality identified. Incidental note shows opacification of the right common femoral vein which was unopacified on CT of the abdomen and pelvis. This would exclude DVT. Lack of opacification may represent asymmetric blood flow with left side greater than right. IMPRESSION: Localized edema could be cellulitis or other nonspecific edema in the subcutaneous tissues of the left thigh. No evidence of abscess. Reviewed, Interpreted and Dictated by Danielle Curry MD Transcribed by Sofia Butts Authenticated and [facility]
[2024-12-12 07:33] LABS: Erythrocyte Sedimentation Rate 23 mm/hr (0-30)
[2024-12-12 09:15] LABS: Procalcitonin 0.114 ng/mL (0.0-2.0)
[2024-12-12] MEDS: IOPAMIDOL-370 (76%);100ML BOTTLE 75 ML IV ×2 (10:01)
--- NOTE | 2024-12-12 10:01 | PC.NURSE ---
Off floor from [address] scan. Pt transported with myself and wlison FONSECA, wheel chair used for transportation. Pt tolerated well.
[2024-12-12] MEDS: SODIUM CHLORIDE 0.9% 10ML SYR (RAD ONLY) 10 ML IV (10:02)
[2024-12-12] MEDS: CEFTRIAXONE SODIUM 2 GM in 0.9 % SODIUM CHLORIDE 100 ML IV (11:50)
--- NOTE | 2024-12-12 12:21 | PC.NURSE ---
This nurse found vape in pt room. Joi Morris and I spoke with pt about our hospital policies on smoking in the hospital, pt was understanding and vape is now locked in burnt lime drawer room and will be returned upon discharge.
--- NOTE | 2024-12-12 14:01 | HMH.OTEV ---
OT Inpatient Evaluation Rehab OT IP Evaluation Start: 12/11/24 09:44 Freq: ONCE Status: Active Protocol: Document 12/12/24 13:39 FREDOMAMIE (Rec: 12/12/24 14:00 SANTO [id number]) Rehab OT IP Assessment Subjective History This is a 63-year-old female with Aviles cirrhosis, hypertension, lymphedema, hypothyroidism who presents emergency department today with complaints of urinary frequency. She reports being in her normal state of health until this week when she developed significantly increased urinary frequency. States that she was diagnosed with diabetes approximately 1 year ago but attempted to diet manages this. States that she has been getting out sugar until most recently. States that she had been drinking sugary drinks this week but was unaware that her urinary symptoms were likely related to her DM. She denies any fever. Denies any dysuria. Denies any flank pain. She does endorse increased generalized weakness and falls . Emergency department workup notable for glucose elevated in the 500 range. Not in DKA. Acetone negative. Platelet count of 66,000. Despite IV fluid administration the emergency department, glucose remained greater than 400. A1c of 12. She reports she feels too weak to go home and take care of herself. Lives at home and gets around by wheelchair. Given her frequent falls and urinary frequency she felt that she would benefit from hospitalization. She is admitted to the hospital service. Lives alone in her handicaps house. Patient has paid helpers who assist her with bathing, cooking and cleaning. Bus provides transportation. Subjective Instructed patient on safety awareness to complete bed mobility from supine->sit @ EOB requiring Min A. Instructed patient on safety awareness to complete EOB->SPT requiring Min A x2 to w/c to be transported for OOR appt. Objective Patient Orientation Person,Place,Name,Age,Year Right Upper Extremity Gross ROM WFL Left Upper Extremity Gross ROM WFL Bed Mobility bed mobility - supine/sit Assist Level Minimal x 1 (25% assist) Transfer Training Sit/Stand/Step Transfer Assist Level Minimal x 2 (25% assist) Chair Transfer Ability Minimal x 2 (25% assist) Chair Transfer Technique Sit to/from Ambulatory Chair Transfer Assistive Devices Rolling Walker Rehab OT IP prob,goals,plan Problems Date of Evaluation: 12/12/24 OT IP Problems Bed Mobility,Transfers,Balance ,Self care,Safety Rehab Potential Rehab Potential Good Equipment Needs Assistive Devices Rolling / Wheeled Walker Plan OT intervention Plan Bed Mobility,Transfers,Balance ,Self care,Safety,Therapeutic Exercise OT Plan Frequency Daily Duration LOS Discharge Goals Bed Mobility Ability Standby Assistance Sit to Stand Chair Transfer Ability Minimal x 2 (25% assist) Chair Transfer Ability Minimal x 2 (25% assist) Discharge Plan OT Discharge Plan Recommend patient to be d/c to rehab due to repeated falls at home. Patient to continue to be seen at OT IP services while here at [facility]. Eval Complexity Eval Charge Codes 21194 - Low Complexity PHYSICIAN CERTIFICATION: I certify the specified therapy services for Tiffanie Dennison are required, authorized, and reviewed every 30 days.
[2024-12-12] MEDS: BUMETANIDE 1MG/4ML VIAL 1 MG IV (16:50)
[2024-12-12 17:10] LABS: POC Glucose,Bedside 271 (70-110)
--- NOTE | 2024-12-12 19:24 | P.PN_ITS ---
Subjective *Date: 12/12/24 *Time: 22:03 Interval history: Patient feeling much better today today. Blood pressure stable. No nausea or vomiting. Complaining of some pain superficial to her left hip. Awaiting CT of hip. Afebrile overnight. Labs show some improvement today. Tolerating p.o. intake. On room air. Medical Exam Vital signs and Labs for Last 24 Hours: Vital Signs Temp Pulse Pulse Pulse Resp BP Pulse Ox 12/12/24 18:15 12/12/24 17:00 12/12/24 15:52 97.6 F 83 16 108/65 L 99 12/12/24 15:00 12/12/24 13:00 12/12/24 11:00 12/12/24 10:00 79 18 119/62 94 L 12/12/24 09:00 12/12/24 08:00 84 12/12/24 08:00 12/12/24 08:00 98.0 F 85 20 97/56 L 96 12/12/24 07:00 12/12/24 06:00 99 H 20 111/59 L 97 12/12/24 04:00 84 12/12/24 04:00 98.3 F 82 14 93/55 L 100 12/12/24 03:00 86 11 L 102/59 L 95 12/12/24 01:00 12/12/24 00:00 96 H 12/12/24 00:00 97.9 F 100 H 23 92/46 L 100 12/11/24 23:00 12/11/24 22:00 100 H 22 93/53 L 100 12/11/24 21:00 12/11/24 20:00 96 H 12/11/24 20:00 97.8 F 95 H 12 103/64 L 99 12/11/24 20:00 100 H 100 O2 Del Method 12/12/24 18:15 Room Air 12/12/24 17:00 Room Air 12/12/24 15:52 Room Air 12/12/24 15:00 Room Air 12/12/24 13:00 Room Air 12/12/24 11:00 Room Air 12/12/24 10:00 Room Air 12/12/24 09:00 Room Air 12/12/24 08:00 12/12/24 08:00 Room Air 12/12/24 08:00 Room Air 12/12/24 07:00 Room Air 12/12/24 06:00 Room Air 12/12/24 04:00 12/12/24 04:00 Room Air 12/12/24 03:00 Room Air 12/12/24 01:00 Room Air 12/12/24 00:00 12/12/24 00:00 Room Air 12/11/24 23:00 Room Air 12/11/24 22:00 Room Air 12/11/24 21:00 Room Air 12/11/24 20:00 12/11/24 20:00 Room Air 12/11/24 20:00 Room Air Intake and Output 12/12/24 12/12/24 12/12/24 07:59 15:59 23:59 Intake Total 1740 / 2370 630 / 2370 0 / 2370 Output Total 2200 / 3800 1125 / 3800 475 / 3800 Balance -460 / -1430 -495 / -1430 -475 / -1430 Intake: Intake, Oral Amount 1740 / 2370 630 / 2370 0 / 2370 Output: Output, Urine Amount 2200 / 3800 1125 / 3800 475 / 3800 Other: Number of Unmeasured Voids 0 0 0 Number of Bowel Movements 1 Weight 60.101 kg Patient Weight 12/12/24 23:59 Weight 60.101 kg Laboratory Results - last 24 hr 12/11/24 19:52: POC Glucose 241 H 12/12/24 05:53: WBC 5.7 D, RBC 3.22 L, Hgb 10.1 L, Hct 30.2 L, MCV 93.8, MCH 31.4 H, MCHC 33.4, RDW 14.6, Plt Count 51 L D, MPV 9.6, Neut % (Auto) 65.3, Lymph % (Auto) 19.3, [place] % (Auto) 12.7 H, Eos % (Auto) 1.8, Baso % (Auto) 0.4, Neut # (Auto) 3.7, Lymph # (Auto) 1.1, [place] # (Auto) 0.7, Eos # (Auto) 0.1, Baso # (Auto) 0.0, ESR 23, PT 14.0 H, INR 1.28 H, Sodium 133 L, Potassium 3.5, Chloride 99, Carbon Dioxide 32 H, Anion Gap 5.5, BUN 14, Creatinine 0.50 L, Estimated Creat Clear 54, Estimated GFR 124, Est GFR ( Amer) 150, Glucose 230 H, Calcium 8.3 L, Magnesium 1.9 D, Total Bilirubin 1.4 H, AST 53 H D, ALT 46 D, Alkaline Phosphatase 238 H, C-Reactive Protein 40.0 H, Total Protein 5.0 L D, Albumin 2.6 L, Globulin 2.4, Albumin/Globulin Ratio 1.1, Procalcitonin 0.114 12/12/24 06:09: POC Glucose 244 H 12/12/24 16:51: POC Glucose 271 H I & O for Labs for Last 24 Hours: Intake & Output 12/09/24 12/10/24 12/11/24 12/12/24 23:59 23:59 23:59 23:59 Intake Total 4655 / 4895 2370 / 2370 Output Total 875 / 1875 3800 / 3800 Balance 3780 / 3020 -1430 / -1430 Weight 59.874 kg 59.5 kg 60.101 kg Microbiology Reports for the Last 24 Hours: Microbiology 12/11/24 09:25 Blood Blood Culture - Preliminary NO GROWTH AFTER 24 HOURS 12/11/24 09:19 Blood Blood Culture - Preliminary NO GROWTH AFTER 24 HOURS Constitutional: Present mild distress, average body habitus and cooperative Head: Present atraumatic and normocephalic ENT: Present normal exam Respiratory: Present normal respiratory effort; Absent rhonchi, wheezes or crackles Cardiac: Present Reg Rate and Rhythm and Systolic Murmur GI: Present soft, distention, tenderness (Nonfocal) and normal bowel sounds Extremities: Present normal inspection, full ROM and edema (3+ to thighs) Skin: Present intact, erythema (Erythema overlying left hip) and ecchymosis Comment:: Bruising on legs and arms Neuro: Present Grossly Intact, alert, awake, oriented x 3 and moves all extremities Comment:: Globally weak Assessment and Plan *Assessment and plan (1) Type 2 diabetes mellitus with hyperglycemia: Status: Acute Qualifiers: Diabetes mellitus residential insulin use: without residential use Qualified Code(s): E11.65 - Type 2 diabetes mellitus with hyperglycemia Category: Medical Code(s): E11.65 - Type 2 diabetes mellitus with hyperglycemia (2) UTI (urinary tract infection): Status: Acute Category: Medical Code(s): N39.0 - Urinary tract infection, site not specified (3) Traumatic ecchymosis of left upper arm: Status: Acute Qualifiers: Encounter type: subsequent encounter Qualified Code(s): S40.022D - Contusion of left upper arm, subsequent encounter Category: Medical Code(s): S40.022A - Contusion of left upper arm, initial encounter (4) Cellulitis: Status: Acute Category: Medical Code(s): L03.90 - Cellulitis, unspecified (5) Traumatic ecchymosis of right upper arm: Status: Acute Qualifiers: Encounter type: subsequent encounter Qualified Code(s): S40.021D - Contusion of right upper arm, subsequent encounter Category: Medical Code(s): S40.021A - Contusion of right upper arm, initial encounter (6) Thrombocytopenia: Status: Acute Category: Medical Code(s): D69.6 - Thrombocytopenia, unspecified (7) Hypothyroidism: Status: Acute Qualifiers: Hypothyroidism type: acquired Qualified Code(s): E03.9 - Hypothyroidism, unspecified Category: Medical Code(s): E03.9 - Hypothyroidism, unspecified (8) Declining functional status: Status: Acute Category: Medical Code(s): R53.81 - Other malaise (9) Cirrhosis: Status: Chronic Qualifiers: Ascites presence: with ascites Hepatic cirrhosis type: unspecified hepatic cirrhosis Qualified Code(s): K74.60 - Unspecified cirrhosis of liver; R18.8 - Other ascites Category: Medical Code(s): K74.60 - Unspecified cirrhosis of liver Plan 63-year-old female with cirrhosis and debility who presented with new diagnosis of diabetes. A1c of 12. Showing some improvement today. Awaiting rehab placement. White count somewhat better today. Imaging of left hip due to concern for overlying cellulitis. Continues to require inpatient management. Continuing broad-spectrum antibiotics with ceftriaxone pending cultures. Problems addressed as follows: #SIRS versus sepsis Suspected UTI Suspected cellulitis -Blood pressure stable today. White count improved to 5.7. ESR elevated 23. Neutrophil percentage dropped from mid 80s to 65%. -Continue ceftriaxone 2 g daily -Concern for cellulitis over left hip, CT obtained, shows edema but no abscess. No progression past leading edge that was marked overnight. Will continue to monitor for 48 hours. -Blood cultures and urine culture obtained and pending. -Repeat CBC, CMP, magnesium, INR ordered for the morning #T2DM with hyperglycemia -Uncontrolled diabetes. A1c of 12. Continue sliding scale insulin. Initiate insulin glargine 8 units tonight. -Morning glucose 230. - diabetic diet #Traumatic ecchymosis of bilateral upper extremities #Thrombocytopenia 2/2 cirrhosis. Patient reports THAO. LFTs unremarkable at this time except for alk phos mildly elevated Avoid anticoagultion at this time SCDs for dvt ppx #Cirrhosis Patient reports being compliant with home Lasix INR 1.28 LFTs w mildly elevated AST, otherwise stable -Resume diuretics today.Bumex 1 mg IV once today. #Hypothyroidism Check TSH and free T4 Continue levothyroxine Debility: PT and OT evaluating patient. Recommend placement. Case management assisting with recommendations DNI Diabetic diet Holding anticoagulation in setting of thrombocytopenia with platelets of 70
[2024-12-12] MEDS: VENLAFAXINE XR 75MG CAPSULE 225 MG PO (20:58)
--- NOTE | 2024-12-12 21:08 | PC.NURSE ---
Addendum entered by Keke Cameron RN 12/12/24 22:24: Patient is unable to have ibuprofen at this time; a new order for gabapentin 200 mg was obtained. Original Note: Patient reported having some pain in her left leg and left hip at this time. She requested to have ibuprofen for pain relief. Isma ANGUIANO was paged at this time for new orders.
[2024-12-12 21:13] LABS: POC Glucose,Bedside 279 (70-110)
[2024-12-12] MEDS: INSULIN GLARGINE 100 UNITS/ML 3ML FLEXPEN 8 UNIT SUBCUT (21:16)
[2024-12-12] MEDS: GABAPENTIN 100MG CAPSULE 200 MG PO (22:30)
[2024-12-13] VITALS: BP 105/41; PULSE 88; RESP 16; TEMP 36.9; O2SAT 95
[2024-12-13 04:00] VITALS: BP 115/51; PULSE 79; RESP 16; TEMP 36.8; O2SAT 94; BMI 22.8
--- NOTE | 2024-12-13 04:31 | PC.NURSE ---
Patient is alert and oriented x4. She was observed to have both wakeful periods and resting periods (eyes closed, respirations even/unlabored on room air) throughout the night. Bladder training + Cruz catheter removal was performed this shift (see table below for time intervals). A new purewick was placed. Urges for urination achieved; the patient urinated 400 mL post-Cruz removal this shift. Urine appearance has been yellow in color and clear in transparency. SCDs in place for VTE prophylaxis; SCDs were removed for a break during the patient's bath, as well as during catheter removal. Patient has significant swelling and redness noted to her bilateral lower extremities. She also has bruising on her left upper extremity. Teran skin noted throughout. A dose of gabapentin was given once per MAR this shift due to complaints of leg/hip pain (see prior note). Scheduled medications also administered as appropriately per MAR. Upon auscultation of her lungs, diminished sounds were heard. Heart and bowel sounds were within normal findings. Bedside commode for defecation needs. Patient has been getting up with assistance during transfers/ambulation. Bedtime snack given. ACHS glucose checks performed. Vital signs stable; soft blood pressures noted. At this time, the patient is resting in bed without any further complaints. No new needs at this time. Call light within reach. Bladder Training This Shift (Initial Clamp at 19:00) Initial Urine Output in Bag - 900 mL Time Interval Urine Output Drained 22:30 (Unclamped - patient had a very mild urge to urinate) to 23:00 (Clamped) 400 mL 23:35 (Unclamped - patient had a strong urge to urinate at this time) to 00:00 (Clamped - readying for removal at 00:05) 150 mL
[2024-12-13 05:51] LABS: POC Glucose,Bedside 115 (70-110)
[2024-12-13] MEDS: LEVOTHYROXINE 137MCG (0.137MG) TAB 137 MCG PO (06:17)
[2024-12-13 06:56] LABS: Basophils % 0.3 % (0.1-2.0); Eosinophils # 0.1 K/mm3 (0.0-0.4); Eosinophils % 2.6 % (0.1-12.0); Hemoglobin 9.6 g/dL (12.2-16.2); Lymphocytes % 25.9 % (10-50); Mean Corpuscular Hemoglobin 30.4 pg (27.0-31.2); Mean Corpuscular Volume 94.9 fl (81-99); Mean Platelet Volume 9.9 fl (7.4-10.4); Monocytes # 0.4 K/mm3 (0.1-1.0); Monocytes % 11.3 % (1.7-9.3); Neutrophils # 2.3 K/mm3 (1.8-7.8); Neutrophils % 59.6 % (37.0-80.0); Platelet Count 52 K/mm3 (142-424); Red Blood Count 3.16 M/mm3 (4.20-5.40); Red Cell Distribution Width 14.7 % (11.5-17.5); White Blood Count 3.9 K/mm3 (4.8-10.8)
[2024-12-13 07:15] LABS: Chloride 104 mmol/L (98-107)
[2024-12-13 07:16] LABS: Albumin Level 2.6 g/dl (3.5-5.0); Potassium 3.8 mmoL/L (3.5-5.1); Sodium 138 mmol/L (136-145)
[2024-12-13 07:18] LABS: Blood Urea Nitrogen 10 mg/dl (7-17); Creatinine Clearance Estimated 54 mL/min (50-200); Estimated Glomerular Filt Rate 161 ml/min (>60); GFR (African American) 194 ML/MIN (>60)
[2024-12-13 07:19] LABS: Alanine Aminotransferase 46 U/L (12-78); Albumin/Globulin Ratio 1.1 (1.1-1.8); Alkaline Phosphatase 237 U/L (38-126); Anion Gap 4.8 mEq/L (5-15); Aspartate Amino Transferase 54 U/L (14-36); Bilirubin,Total 0.9 mg/dl (0.2-1.3); Calcium 8.3 mg/dl (8.4-10.2); Carbon Dioxide 33 mmol/L (22.0-30.0); Globulin 2.3 g/dL (1.3-3.2); Glucose 117 mg/dl (74-100); Total Protein,Serum 4.9 g/dl (6.3-8.2)
--- NOTE | 2024-12-13 07:34 | P.DS_ITS ---
General Admission date:: 12/10/24 Discharge date: 12/13/24 HPI HPI HPI: This is a 63-year-old female with Thao cirrhosis, hypertension, lymphedema, hypothyroidism who presents emergency department today with complaints of urinary frequency. She reports being in her normal state of health until this week when she developed significantly increased urinary frequency. States that she was diagnosed with diabetes approximately 1 year ago but attempted to diet manages this. States that she has been getting out sugar until most recently. States that she had been drinking sugary drinks this week but was unaware that her urinary symptoms were likely related to her DM. She denies any fever. Denies any dysuria. Denies any flank pain. She does endorse increased generalized weakness and falls. Emergency department workup notable for glucose elevated in the 500 range. Not in DKA. Acetone negative. Platelet count of 66,000. Despite IV fluid administration the emergency department, glucose remained greater than 400. A1c of 12. She reports she feels too weak to go home and take care of herself. Lives at home and gets around by wheelchair. Given her frequent falls and urinary frequency she felt that she would benefit from hospitalization. She is admitted to the hospital service Hospital Course Hospital Course Hospital Course: 63-year-old female with cirrhosis and debility who presented with new diagnosis of diabetes. A1c of 12. Has shown improvement since initiating insulin. Seen by therapy, recommend placement for rehab. Patient also noted to have an episode of hypotension. Developed redness of her left hip. Inflammatory markers are showing some improvement. Will treat for suspected UTI and cellulitis. Stable to discharge to rehab for further management. Problems addressed as follows: #SIRS versus sepsis Suspected UTI Suspected cellulitis -Had an episode of hypotension. Cultures were obtained that have not shown any growth to date. White count doubled to 10 and has improved to 5. Inflammatory markers showing some improvement. On day of discharge, ESR 2, CRP 28, consistently improved since. Was initiated empirically on ceftriaxone for possible UTI versus ileitis. Has done well. CT obtained showing no abscess and concern for edema of her cellulitis. Will transition to cefdinir to complete 5 days of antibiotics. Would benefit from repeat labs with CBC, CMP and magnesium in 1 week #T2DM with hyperglycemia -Uncontrolled diabetes. A1c of 12. Required sliding scale insulin during admission. Was initiated on basal insulin with Lantus. Will continue 8 units nightly. Having better control. Several oral agents are contraindicated given her diarrhea and suspected UTI. Recommend single agent with long-acting insulin. Repeat A1c in 3 months. Recommend diabetic diet #Traumatic ecchymosis of bilateral upper extremities #Thrombocytopenia Anemia 2/2 cirrhosis. Patient reports THAO. LFTs unremarkable at this time except for alk phos mildly elevated. Platelets 52 on day of discharge. Hemoglobin stable but low at 9.6 #Cirrhosis Patient reports being compliant with home Lasix. Continue diuretic regimen at discharge, transition to Bumex. INR stable at 1.28. Consider addition of low- dose carvedilol if blood pressure allows in the outpatient setting #Hypothyroidism TSH 6.8. Continue home levothyroxine 137 mcg daily. Debility: PT and OT evaluating patient. Recommend placement. Graciously accepted to [facility] for further rehab. Patient adamant about going home even though she lives by herself with significant debility. Amenable to rehab short-term with plan for home when more mobile Total time spent on discharge 32 minutes in counseling, documentation, chart review, and direct care with patient. Exam Data for Last 24 hours Vital signs and Labs for Last 24 Hours: Temp Pulse Resp BP Pulse Ox O2 Del Method O2 Flow Rate 98.2 F 79 16 115/51 L 94 L Room Air 2 12/13/24 04:00 12/13/24 04:00 12/13/24 04:00 12/13/24 04:00 12/13/24 04:00 12/13/24 06:30 12/12/24 20:00 Laboratory Results - last 24 hr 12/12/24 05:53: C-Reactive Protein 40.0 H, Procalcitonin 0.114 12/12/24 16:51: POC Glucose 271 H 12/12/24 21:03: POC Glucose 279 H 12/13/24 05:42: POC Glucose 115 H 12/13/24 06:03: WBC 3.9 L D, RBC 3.16 L, Hgb 9.6 L, Hct 30.0 L, MCV 94.9, MCH 30.4, MCHC 32.0, RDW 14.7, Plt Count 52 L, MPV 9.9, Neut % (Auto) 59.6, Lymph % (Auto) 25.9, Chaves % (Auto) 11.3 H, Eos % (Auto) 2.6, Baso % (Auto) 0.3, Neut # (Auto) 2.3, Lymph # (Auto) 1.0, Chaves # (Auto) 0.4, Eos # (Auto) 0.1, Baso # (Auto) 0.0 I & O for Last 24 hours: Intake & Output 12/10/24 12/11/24 12/12/24 12/13/24 23:59 23:59 23:59 23:59 Intake Total 4655 / 4895 2488 / 2843 355 / 355 Output Total 875 / 1875 5100 / 5250 800 / 800 Balance 3780 / 3020 -2612 / -2407 -445 / -445 Weight 59.874 kg 59.5 kg 60.101 kg 60.625 kg Microbiology Reports for the Last 24 Hours: Microbiology 12/11/24 09:25 Blood Blood Culture - Preliminary NO GROWTH AFTER 24 HOURS 12/11/24 09:19 Blood Blood Culture - Preliminary NO GROWTH AFTER 24 HOURS Constitutional Constitutional: no acute distress, thin, chronically ill appearing and cooperative *Routine HEENT Exam Head: Present normocephalic Eye: Present EOMI and PERRL ENT: Present mucous membranes moist *Routine Neck Exam Neck: Present supple; Absent lymphadenopathy *Routine Respiratory Exam Respiratory: Present CTA bilaterally; Absent rhonchi, wheezes or crackles *Routine Cardiovascular Exam Cardiovascular: Present RRR *Routine Abdominal Exam Abdominal: Present soft, normoactive bowel sounds and distended; Absent tenderness *Routine Rectal Exam Patient deferred: visual exam *Routine Exam Patient deferred: external exam *Routine Extremities Exam Extremities: Present edema (2+ to thighs, improved since admission); Absent cyanosis or clubbing *Routine Skin Exam Skin: Present intact, erythema (mild, improved in left lower extremity from ankle to knee) and warm (equal bilaterally); Absent rash Comments: senile purpura on arms *Routine Neurological Exam Neurological: Present alert, oriented X3 and moving all extremities; Absent altered mental status Results Data Completed and Pending Labs on day of discharge: Labs from last 24 hours 12/13/24 12/13/24 12/12/24 06:03 05:42 21:03 WBC 3.9 L D RBC 3.16 L Hgb 9.6 L Hct 30.0 L MCV 94.9 MCH 30.4 MCHC 32.0 RDW 14.7 Plt Count 52 L MPV 9.9 Neut % (Auto) 59.6 Lymph % (Auto) 25.9 Chaves % (Auto) 11.3 H Eos % (Auto) 2.6 Baso % (Auto) 0.3 Neut # (Auto) 2.3 Lymph # (Auto) 1.0 Chaves # (Auto) 0.4 Eos # (Auto) 0.1 Baso # (Auto) 0.0 POC Glucose 115 H 279 H C-Reactive Protein Procalcitonin 12/12/24 12/12/24 16:51 05:53 WBC RBC Hgb Hct MCV MCH MCHC RDW Plt Count MPV Neut % (Auto) Lymph % (Auto) Chaves % (Auto) Eos % (Auto) Baso % (Auto) Neut # (Auto) Lymph # (Auto) Chaves # (Auto) Eos # (Auto) Baso # (Auto) POC Glucose 271 H C-Reactive Protein 40.0 H Procalcitonin 0.114 Preliminary micro results at discharge 12/11/24 09:25 Blood Culture - Preliminary Blood NO GROWTH AFTER 24 HOURS 12/11/24 09:19 Blood Culture - Preliminary Blood NO GROWTH AFTER 24 HOURS DS: Diagnosis Discharge Diagnosis (1) Type 2 diabetes mellitus with hyperglycemia: Status: Acute Code(s): E11.65 - Type 2 diabetes mellitus with hyperglycemia Qualifiers: Diabetes mellitus skilled nursing insulin use: without middle or intermediate school principal use Qualified Code(s): E11.65 - Type 2 diabetes mellitus with hyperglycemia (2) UTI (urinary tract infection): Status: Acute Code(s): N39.0 - Urinary tract infection, site not specified (3) Traumatic ecchymosis of left upper arm: Status: Acute Code(s): S40.022A - Contusion of left upper arm, initial encounter Qualifiers: Encounter type: subsequent encounter Qualified Code(s): S40.022D - Contusion of left upper arm, subsequent encounter (4) Cellulitis: Status: Acute Code(s): L03.90 - Cellulitis, unspecified (5) Traumatic ecchymosis of right upper arm: Status: Acute Code(s): S40.021A - Contusion of right upper arm, initial encounter Qualifiers: Encounter type: subsequent encounter Qualified Code(s): S40.021D - Contusion of right upper arm, subsequent encounter (6) Thrombocytopenia: Status: Acute Code(s): D69.6 - Thrombocytopenia, unspecified (7) Hypothyroidism: Status: Acute Code(s): E03.9 - Hypothyroidism, unspecified Qualifiers: Hypothyroidism type: acquired Qualified Code(s): E03.9 - Hypothyroidism, unspecified (8) Declining functional status: Status: Acute Code(s): R53.81 - Other malaise (9) Cirrhosis: Status: Chronic Code(s): K74.60 - Unspecified cirrhosis of liver Qualifiers: Ascites presence: with ascites Hepatic cirrhosis type: unspecified hepatic cirrhosis Qualified Code(s): K74.60 - Unspecified cirrhosis of liver; R18.8 - Other ascites Meds Home Medications and Allergies Home Medications ?Medication ?Instructions ?Recorded ?Confirmed ?Type aripiprazole 2 mg tablet 2 mg PO HS 30 days #30 tabs 12/13/24 Rx ascorbic acid (vitamin C) 500 mg 500 mg PO DAILY 30 days #30 tabs 12/13/24 Rx tablet bumetanide 1 mg tablet 1 mg PO DAILY #30 tabs 12/13/24 Rx calcium 600 mg (as 1 tab PO DAILY 30 days #30 tabs 12/13/24 Rx carbonate)-vitamin D3 10 mcg (400 unit) tablet (Calcium 600 + D(3)) cefdinir 300 mg capsule 300 mg PO BID 4 days #8 caps 12/13/24 Rx ferrous sulfate 325 mg (65 mg 325 mg PO PM 30 days #30 tabs 12/13/24 Rx iron) tablet (FeroSul) insulin glargine 100 unit/mL (3 8 unit (0.08 mL) SQ HS 30 days #3 12/13/24 Rx mL) subcutaneous pen (Lantus mL Solostar U-100 Insulin) levothyroxine 137 mcg tablet 137 mcg PO DAILYDM 30 days #30 tabs 12/13/24 Rx (Synthroid) potassium chloride 20 mEq 20 meq PO DAILY 30 days #30 tabs 12/13/24 Rx tablet,extended release(part/cryst) (Klor-Con M) vits no.130-ferrous fum 1 tab PO 1700 30 days #30 tabs 12/13/24 Rx 27 mg iron-folic acid 800 mcg tablet ( Vitamin) spironolactone 25 mg tablet 25 mg PO BID 30 days #60 tabs 12/13/24 Rx venlafaxine 150 mg 150 mg PO HS 30 days #30 caps 12/13/24 Rx capsule,extended release 24 hr venlafaxine 75 mg capsule,extended 75 mg PO HS 30 days #30 caps 12/13/24 Rx release 24 hr New Prescriptions to Start Prescriptions: aripiprazole Noel Hercules ascorbic acid (vitamin C) Delisa,Noel bumetanide Noel Hercules calcium carbonate-vitamin D3 [Calcium 600 + D(3)] Delisa,Noel cefdinir Delisa,Noel ferrous sulfate [FeroSul] Noel Hercules insulin glargine [Lantus Solostar U-100 Insulin] Delisa,Noel levothyroxine [Synthroid] Delisa,Noel potassium chloride [Klor-Con M20] Noel Hercules vit no.[id number] [ Vitamin] Delisa,Noel spironolactone Delisa,Noel venlafaxine Delisa,Noel venlafaxine Noel Hercules Allergies Allergy/AdvReac Type Severity Reaction Status Date / Time tizanidine Allergy Mild Verified 09/24/23 23:17 Discharge Plan Disposition Patient Disposition: Xfer [facility] Condition: Fair Discharge Order Discharge Orders: Discharge Order (Routine); Ordered 12/13/24 Ordered By: Noel Hercules Follow up Plan Prescriptions/Medication Reconciliation: New insulin glargine [Lantus Solostar U-100 Insulin] 100 unit/mL (3 mL) Insulin Pen 8 unit SQ HS 30 Days Qty: 3 0RF bumetanide 1 mg tablet 1 mg PO DAILY Qty: 30 0RF cefdinir 300 mg capsule 300 mg PO BID 4 Days Qty: 8 0RF Continued levothyroxine [Synthroid] 137 mcg tablet 137 mcg PO DAILYDM 30 Days Qty: 30 0RF venlafaxine 75 mg capsule,extended release 24hr 75 mg PO HS 30 Days Qty: 30 0RF Rx Instructions: one capsule daily in the evening, add to the 150 mg dose venlafaxine 150 mg capsule,extended release 24hr 150 mg PO HS 30 Days Qty: 30 0RF potassium chloride [Klor-Con M20] 20 mEq Tablet,Er Particles/Crystals 20 meq PO DAILY 30 Days Qty: 30 0RF ascorbic acid (vitamin C) 500 mg Tablet 500 mg PO DAILY 30 Days Qty: 30 0RF ferrous sulfate [FeroSul] 325 mg (65 mg iron) tablet 325 mg PO PM 30 Days Qty: 30 0RF aripiprazole 2 mg Tablet 2 mg PO HS 30 Days Qty: 30 0RF calcium carbonate-vitamin D3 [Calcium 600 + D(3)] 600 mg-10 mcg (400 unit) Tablet 1 tab PO DAILY 30 Days Qty: 30 0RF Vitamin 27 mg iron- 800 mcg Tablet 1 tab PO 1700 30 Days Qty: 30 0RF Changed spironolactone 25 mg tablet 25 mg PO BID 30 Days Qty: 60 0RF Discontinued furosemide [Lasix] 80 mg tablet 80 mg PO DAILY Qty: 30 0RF Problem Reconciliation Problems Reviewed?: Yes Patient Discharge Instructions ACTIVITY: Continue current activity DIET: continue same diet Patient Instructions: Cirrhosis, Ascites, DI for Hyperglycemia -- Adult, How to Care for Your Cruz Catheter -- Female, Indwelling Urinary Catheter Insertion--Female Print Language: Wolof Providers Primary Care Provider: Provider,Referral Admit Provider: Noel Hercules Attending Provider: Noel Hercules
[2024-12-13 07:40] LABS: Erythrocyte Sedimentation Rate 2 mm/hr (0-30)
[2024-12-13 08:00] VITALS: BP 96/49; PULSE 90; RESP 16; TEMP 36.8; O2SAT 96
[2024-12-13] MEDS: ACETAMINOPHEN 325MG TAB 650 MG PO (09:02)
[2024-12-13 09:04] LABS: Magnesium 1.9 mg/dl (1.6-2.3)
[2024-12-13 09:22] LABS: Procalcitonin 0.088 ng/mL (0.0-2.0)
[2024-12-13] MEDS: CEFTRIAXONE SODIUM 2 GM in 0.9 % SODIUM CHLORIDE 100 ML IV (10:44)
[2024-12-13] MEDS: humaLOG 100 UNITS/ML 10ML VIAL (SSI) SUBCUT ×3 (10:48→20:59)
[2024-12-13 12:00] VITALS: BP 110/53; PULSE 77; RESP 18; TEMP 36.5; O2SAT 98
[2024-12-13 16:50] LABS: POC Glucose,Bedside 200 (70-110)
--- NOTE | 2024-12-13 18:52 | P.PN_ITS ---
Subjective *Date: 12/13/24 *Time: 21:32 Interval history: Patient better today. Edema improving. Tolerating p.o. intake. Stable to discharge to rehab, read not available. On room air. No significant complaints today. Glucose better controlled this morning. Medical Exam Vital signs and Labs for Last 24 Hours: Vital Signs Temp Pulse Resp BP Pulse Ox O2 Del Method O2 Flow Rate 12/13/24 18:35 Room Air 12/13/24 17:00 Room Air 12/13/24 15:00 Room Air 12/13/24 13:00 Room Air 12/13/24 12:00 97.7 F 77 18 110/53 L 98 Room Air 12/13/24 10:34 Room Air 12/13/24 09:00 Room Air 12/13/24 08:00 Room Air 12/13/24 08:00 98.3 F 90 16 96/49 L 96 Room Air 12/13/24 06:30 Room Air 12/13/24 05:00 Room Air 12/13/24 04:00 98.2 F 79 16 115/51 L 94 L Room Air 12/13/24 03:00 Room Air 12/13/24 01:00 Room Air 12/13/24 00:00 98.5 F 88 16 105/41 L 95 Room Air 12/12/24 23:00 Room Air 12/12/24 21:00 Room Air 12/12/24 20:00 88 16 98 Room Air 12/12/24 20:00 98.6 F 88 16 101/58 L 98 Nasal Cannula 2 Intake and Output 12/13/24 12/13/24 12/13/24 07:59 15:59 23:59 Intake Total 355 / 1385 670 / 1385 360 / 1385 Output Total 800 / 1200 400 / 1200 Balance -445 / 185 270 / 185 360 / 185 Intake: Intake, Oral Amount 355 / 1385 670 / 1385 360 / 1385 Output: Output, Urine Amount 650 / 1050 400 / 1050 Output, Urine Amount (Catheter) 150 / 150 Cruz 150 / 150 Other: Number of Unmeasured Voids 0 0 Number of Bowel Movements 1 1 Weight 60.625 kg Patient Weight 12/13/24 23:59 Weight 60.625 kg Laboratory Results - last 24 hr 12/12/24 21:03: POC Glucose 279 H 12/13/24 05:42: POC Glucose 115 H 12/13/24 06:03: WBC 3.9 L D, RBC 3.16 L, Hgb 9.6 L, Hct 30.0 L, MCV 94.9, MCH 30.4, MCHC 32.0, RDW 14.7, Plt Count 52 L, MPV 9.9, Neut % (Auto) 59.6, Lymph % (Auto) 25.9, Wetzel % (Auto) 11.3 H, Eos % (Auto) 2.6, Baso % (Auto) 0.3, Neut # (Auto) 2.3, Lymph # (Auto) 1.0, Wetzel # (Auto) 0.4, Eos # (Auto) 0.1, Baso # (Auto) 0.0, ESR 2, Sodium 138, Potassium 3.8, Chloride 104, Carbon Dioxide 33 H, Anion Gap 4.8 L, BUN 10 D, Creatinine 0.40 L, Estimated Creat Clear 54, Estimated GFR 161, Est GFR ( Amer) 194 D, Glucose 117 H, Calcium 8.3 L, Magnesium 1.9, Total Bilirubin 0.9, AST 54 H, ALT 46, Alkaline Phosphatase 237 H , C-Reactive Protein 28.0 H D, Total Protein 4.9 L, Albumin 2.6 L, Globulin 2.3, Albumin/Globulin Ratio 1.1, Procalcitonin 0.088 12/13/24 16:31: POC Glucose 200 H I & O for Labs for Last 24 Hours: Intake & Output 12/10/24 12/11/24 12/12/24 12/13/24 23:59 23:59 23:59 23:59 Intake Total 4655 / 4895 2488 / 2843 1385 / 1385 Output Total 875 / 1875 5100 / 5250 1200 / 1200 Balance 3780 / 3020 -2612 / -2407 185 / 185 Weight 59.874 kg 59.5 kg 60.101 kg 60.625 kg Microbiology Reports for the Last 24 Hours: Microbiology 12/11/24 09:25 Blood Blood Culture - Preliminary NO GROWTH AFTER 48 HOURS 12/11/24 09:19 Blood Blood Culture - Preliminary NO GROWTH AFTER 48 HOURS 12/10/24 17:05 Urine,Catheterized Urine Culture - Final No growth. Constitutional: Present no acute distress, average body habitus and cooperative Head: Present atraumatic and normocephalic ENT: Present normal exam Respiratory: Present normal respiratory effort; Absent rhonchi, wheezes or crackles Cardiac: Present Reg Rate and Rhythm and Systolic Murmur GI: Present soft, distention and normal bowel sounds; Absent tenderness Extremities: Present normal inspection, full ROM and edema (2+ to thighs, improving) Skin: Present intact, erythema (Erythema overlying left hip, improving) and e cchymosis Comment:: Bruising on legs and arms Neuro: Present Grossly Intact, alert, awake, oriented x 3 and moves all extremities Comment:: Globally weak Assessment and Plan *Assessment and plan (1) Type 2 diabetes mellitus with hyperglycemia: Status: Acute Qualifiers: Diabetes mellitus long term care administrator insulin use: without long term care administrator use Qualified Code(s): E11.65 - Type 2 diabetes mellitus with hyperglycemia Category: Medical Code(s): E11.65 - Type 2 diabetes mellitus with hyperglycemia (2) UTI (urinary tract infection): Status: Acute Category: Medical Code(s): N39.0 - Urinary tract infection, site not specified (3) Traumatic ecchymosis of left upper arm: Status: Acute Qualifiers: Encounter type: subsequent encounter Qualified Code(s): S40.022D - Contusion of left upper arm, subsequent encounter Category: Medical Code(s): S40.022A - Contusion of left upper arm, initial encounter (4) Cellulitis: Status: Acute Category: Medical Code(s): L03.90 - Cellulitis, unspecified (5) Traumatic ecchymosis of right upper arm: Status: Acute Qualifiers: Encounter type: subsequent encounter Qualified Code(s): S40.021D - Contusion of right upper arm, subsequent encounter Category: Medical Code(s): S40.021A - Contusion of right upper arm, initial encounter (6) Thrombocytopenia: Status: Acute Category: Medical Code(s): D69.6 - Thrombocytopenia, unspecified (7) Hypothyroidism: Status: Acute Qualifiers: Hypothyroidism type: acquired Qualified Code(s): E03.9 - Hypothyroidism, unspecified Category: Medical Code(s): E03.9 - Hypothyroidism, unspecified (8) Declining functional status: Status: Acute Category: Medical Code(s): R53.81 - Other malaise (9) Cirrhosis: Status: Chronic Qualifiers: Ascites presence: with ascites Hepatic cirrhosis type: unspecified hepatic cirrhosis Qualified Code(s): K74.60 - Unspecified cirrhosis of liver; R18.8 - Other ascites Category: Medical Code(s): K74.60 - Unspecified cirrhosis of liver Plan 63-year-old female with cirrhosis and debility who presented with new diagnosis of diabetes. A1c of 12. Showing some improvement today. Awaiting rehab placement. Unable to transport to rehab today due to limited availability and whether. White count normal at 3.9. Stable. Anticipate discharge in the morning. Problems addressed as follows: #SIRS versus sepsis Suspected UTI Suspected cellulitis -Blood pressure stable today. White count improved to 3.9 ESR improved to 2. CRP mildly elevated.. -Continue ceftriaxone 2 g daily, will transition to cefdinir at discharge -Concern for cellulitis over left hip, CT obtained, shows edema but no abscess. No progression past leading edge that was marked overnight. -Blood cultures and urine culture obtained and pending, remain negative -Repeat CBC, CMP, magnesium, INR ordered for the morning #T2DM with hyperglycemia -Uncontrolled diabetes. A1c of 12. Continue sliding scale insulin. Tolerating 8 units glargine. Morning glucose better at 115. - diabetic diet #Traumatic ecchymosis of bilateral upper extremities #Thrombocytopenia 2/2 cirrhosis. Patient reports THAO. LFTs unremarkable at this time except for alk phos mildly elevated Avoid anticoagultion at this time SCDs for dvt ppx #Cirrhosis Patient reports being compliant with home Lasix LFTs w mildly elevated AST, otherwise stable -Resume diuretics today.Bumex 1 mg IV once today. #Hypothyroidism Check TSH and free T4 Continue levothyroxine Debility: PT and OT evaluating patient. Recommend placement. Case management assisting with recommendations DNI Diabetic diet Holding anticoagulation in setting of thrombocytopenia with platelets of 70
[2024-12-13 20:00] VITALS: BP 112/59; PULSE 73; RESP 18; TEMP 36.5; O2SAT 99
[2024-12-13] MEDS: INSULIN GLARGINE 100 UNITS/ML 3ML FLEXPEN 8 UNIT SUBCUT (20:59)
[2024-12-13] MEDS: VENLAFAXINE XR 75MG CAPSULE 225 MG PO (21:02)
[2024-12-13] MEDS: ARIPIPRAZOLE 2 MG 1 EACH PO (21:03)
[2024-12-13 21:17] LABS: POC Glucose,Bedside 206 (70-110)
[2024-12-14] VITALS: BP 104/63; PULSE 75; TEMP 36.6; O2SAT 97
[2024-12-14 04:00] VITALS: BP 119/69; PULSE 76; RESP 16; TEMP 36.3; O2SAT 98; BMI 24.1
--- NOTE | 2024-12-14 05:06 | PC.NURSE ---
Pt is alert and oriented x4. Pt glucose levels remain elevated and pt has been treated per MAR. Pt home meds were located and placed in med drawer. Pt denies pain and needs when asked and has had no acute changes to note at this time.
[2024-12-14 05:51] LABS: POC Glucose,Bedside 137 (70-110)
[2024-12-14 07:57] LABS: Basophils % 0.6 % (0.1-2.0); Eosinophils # 0.1 K/mm3 (0.0-0.4); Eosinophils % 2.4 % (0.1-12.0); Hematocrit 34.4 % (37.0-47.0); Hemoglobin 11.3 g/dL (12.2-16.2); Lymphocytes # 0.9 K/mm3 (0.7-4.5); Lymphocytes % 26.7 % (10-50); Mean Corpuscular HGB Conc 32.8 g/dL (31.8-35.4); Mean Corpuscular Hemoglobin 31.2 pg (27.0-31.2); Mean Platelet Volume 9.5 fl (7.4-10.4); Monocytes # 0.4 K/mm3 (0.1-1.0); Monocytes % 11.6 % (1.7-9.3); Neutrophils # 1.9 K/mm3 (1.8-7.8); Neutrophils % 58.4 % (37.0-80.0); Platelet Count 62 K/mm3 (142-424); Red Blood Count 3.62 M/mm3 (4.20-5.40); Red Cell Distribution Width 14.6 % (11.5-17.5); White Blood Count 3.3 K/mm3 (4.8-10.8)
[2024-12-14 08:04] LABS: Albumin Level 2.8 g/dl (3.5-5.0); Chloride 107 mmol/L (98-107); Potassium 4.2 mmoL/L (3.5-5.1); Sodium 138 mmol/L (136-145)
[2024-12-14 08:07] LABS: Alanine Aminotransferase 51 U/L (12-78); Albumin/Globulin Ratio 1.1 (1.1-1.8); Alkaline Phosphatase 262 U/L (38-126); Anion Gap 4.2 mEq/L (5-15); Aspartate Amino Transferase 63 U/L (14-36); Bilirubin,Total 1.1 mg/dl (0.2-1.3); Blood Urea Nitrogen 8 mg/dl (7-17); Carbon Dioxide 31 mmol/L (22.0-30.0); Creatinine Clearance Estimated 58 mL/min (50-200); Estimated Glomerular Filt Rate 224 ml/min (>60); GFR (African American) 271 ML/MIN (>60); Globulin 2.5 g/dL (1.3-3.2); Total Protein,Serum 5.3 g/dl (6.3-8.2)
[2024-12-14 08:08] LABS: Calcium 8.5 mg/dl (8.4-10.2); Glucose 157 mg/dl (74-100)
--- NOTE | 2024-12-14 08:19 | PC.NURSE ---
EMS STAFF UNABLE TO TRANSPORT PT WHEELCHAIR. WHEELCHAIR PLACED IN HOUSE OFFICE ON 2ND FLOOR.
--- NOTE | 2024-12-14 08:20 | PC.NURSE ---
ATTEMPTED TO ADMIN PT 0700 LEVOTHYROXINE BUT MEDICATION WAS NOT AVAILABLE.
[2024-12-14 08:24] LABS: Magnesium 1.7 mg/dl (1.6-2.3)
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
== END 2024-12-14 08:19 | DRG 639 ==
LOC: ER 16:29 → 2ND 22:35
PROVIDERS: Nurse Practitioner; Nurse Practitioner Acute Care; Admitting Provider Internal Medicine Adolescent Medicine; Emergency Provider Emergency Medicine; Visit Provider Internal Medicine Adolescent Medicine
DX: E11.65 Type 2 diabetes mellitus with hyperglycemia (principal); K74.69 Other cirrhosis of liver; I95.9 Hypotension, unspecified; R00.0 Tachycardia, unspecified; K75.81 Nonalcoholic steatohepatitis (NASH); D69.6 Thrombocytopenia, unspecified; R53.81 Other malaise; I89.0 Lymphedema, not elsewhere classified; E03.9 Hypothyroidism, unspecified; D64.9 Anemia, unspecified; S40.022A Contusion of left upper arm, initial encounter; S40.021A Contusion of right upper arm, initial encounter; R35.0 Frequency of micturition; R29.6 Repeated falls; Z79.890 Hormone replacement therapy; Z86.19 Personal history of other infectious and parasitic diseases; Z82.49 Family history of ischemic heart disease and other diseases of the circulatory system; Z87.891 Personal history of nicotine dependence; Z79.899 Other long term (current) drug therapy; Z91.148 Patient's other noncompliance with medication regimen for other reason; Z99.3 Dependence on wheelchair; Z74.1 Need for assistance with personal care; Z60.2 Problems related to living alone
CPT/HCPCS: 36415; 71045; 73701; 74177; 80048; 80053; 80061; 81001; 82009; 82962; 83036; 83605; 83735; 84145; 84439; 84443; 84484; 85025; 85610; 85651; 86140; 87040; 87086; 87636; 93005; 93306; 97163; 97165; 97530; J0696; J1939; J3475; J7030; J7120; Q9967

== ENCOUNTER 2025-01-31 14:00 | Outpatient (RCR) | payer MEDICARE, SELFPAY | END 2025-01-31 23:59 | disposition home or self-care (01) | LOC: PT 14:00 | PROVIDERS: Visit Provider Internal Medicine | DX: R53.1 Weakness (principal) | CPT/HCPCS: 97110; 97163; 97530 ==

== ENCOUNTER 2025-01-31 14:00 | Outpatient (RCR) | payer MEDICARE, SELFPAY | END 2025-01-31 23:59 | disposition home or self-care (01) | LOC: OT 14:00 | PROVIDERS: Visit Provider Internal Medicine | DX: R53.1 Weakness (principal) | CPT/HCPCS: 97110; 97140; 97166 ==

== ENCOUNTER 2025-02-18 09:28 | Outpatient (CLI) | payer MEDICARE, OTHER, SELFPAY ==
--- OUTSIDE RECORDS SUMMARY | 2025-01-21 08:00 | XMS_ITS | Encounter Summary ---
Author Organization Healthcare Address [address] [place] [address] Care Team Providers Care Locomotive Engineer Name Role Phone Meagan Hagan MD Primary Care Provider [phone] Reason for Referral * Consultation (Routine) - Authorized Specialty Diagnoses / Procedures Referred By Dileep martínez Referred To Contact Diagnoses Type 2 diabetes mellitus with hyperglycemia (CMS/HCC) Roopa Martinez PA [address] [address] Phone: tel: fax: Referral ID Status Reason Start Date Expiration Date V isits Requested Visits Authorized [id number] Authorized 01/21/2025 07/23/2026 1 1 Reason for Visit * Reason Comments Diabetes * Consultation (Routine) - Closed Specialty Diagnoses / Procedures Referred By Dileep martínez Referred To Contact Endocrinology Diagnoses Type 2 diabetes mellitus with hyperglycemia (CMS/HCC) Meagan Hagan MD [address] [place], [place] [address] [place] [address] Phone: tel: fax: Referral ID Status Reason Start Date Expiration Date V isits Requested Visits Authorized [id number] Closed Specialty Services Required 01/16/2025 07/18/2026 1 1 Encounter Details Date Type Department Care Team (Late st Contact Info) Description 01/21/2025 8:00 AM EDT Office Visit [facility] [address] [place] [address] Roopa Martinez PA [address] [phone] Type 2 diabetes mellitus with hyperglycemia, without long-term current use of insulin (CMS/HCC) (Primary Dx); Cirrhosis of liver without ascites, unspecified hepatic cirrhosis type (CMS/HCC) Social History Tobacco Use Types Packs/Day Years Used Date Smoking Tobacco: Former Cigarettes 2 10 1992 Smokeless Tobacco: Never Tobacco Cessation:Counseling Given: Not Answered Alcohol Use Standard Drinks/Week Comments Not Currently 0 (1 standard drink = 0.6 oz pure alcohol) Alcoholic Drinks/day: Consumes alcohol weekly PHQ-2 Answer Date Recorded Patient Health Questionnaire-2 Score 2 01/21/2025 Comments No Sex and Gender Information Value Date Recorded Sex Assigned at Not on file Legal Sex Female 8:52 PM EDT Gender Identity Not on file Sexual Orientation Not on file documented as of this encounter Last Filed Vital Signs Vital Sign Reading Time Taken Comments Blood Pressure 97/62 01/21/2025 8:02 AM EDT Pulse 76 01/21/2025 8:02 AM EDT Temperature - - Respiratory Rate - - Oxygen Saturation - - Inhaled Oxygen Concentration - - Weight 52.5 kg (115 lb 11.9 oz) 01/21/2025 8:02 AM EDT Height 157.5 cm (5' 2 ) 01/21/2025 8:02 AM EDT Body Mass Index 21.17 01/21/2025 8:02 AM EDT documented in this encounter Functional Status * Over the past 2 weeks, how often have you been bothered by any of the following problems? Question Answer Date of Assessment Author Little interest or pleasure in doing things Several days 01/21/2025 8:11 AM EDT Matilda Gao Feeling down, depressed, or hopeless Several days 01/21/2025 8:11 AM EDT Matilda Gao Patient Health Questionnaire -2 Score 2 01/21/2025 8:11 AM EDT Matilda Gao documented as of this encounter Miscellaneous Notes * Clinician Note - Skip Antonio RD - 01/21/2025 8:00 AM EDT Patient is seen in the office for management of diabetes. Reviewed with patient diabetes nutrition diet. Reviewed MyPlate, foods containing CHOs, reviewed nutrition label reading, carb+protein snacks for BG control. Addressed all questions and concerns. Provided educational handout and snack ideas, BG targets for 2 hrs after eating, and recommended amount of carbs at each meal. * Patient Instructions - Roopa Martinez PA - 01/21/2025 8:00 AM EDT Goal is for A1C to be 7% or less, which corresponds to an average blood glucose of 150. Range 70-150 is within normal limits Type 2 diabetes. Checking blood glucose two hours after meals: Blood glucose should be 180 or less on average to assess. -[place] [employer] (ADA) -Please call the diabetes education team with any questions or concerns [phone]. * Progress Notes - Roopa Martinez PA - 01/21/2025 8:00 AM EDT Subjective Tiffanie Dennison is a 64 y.o. female who presents for an initial evaluation of Diabetes Mellitis Type 2. Current symptoms/problems include hyperglycemia. History cirrhosis, HTN, Chiari malformation, HLD HPI A1c 8.8% 01/10 at PCP from 8.3% 05/2024 -Initial endocrinology consult. Referred by PCP Meagan Hagan MD for uncontrolled Type 2 diabetes. Patient admits for the Current treatment includes diet, due to infrequent lantus use. Lantus 5 units once daily, dose reduced from 10 units due to significant hypoglycemia at PCP on er patient, however patient states only injected on 01/11. She states she has been watching her diet alone to achieve blood glucose readings. She admits that over the past 6-8 months with other chronic health conditions, she has not been diligent in her dietto continue regulating blood glucose, prev A1C was under 7%. Known diabetic complications: none Compliance at present is estimated to be good. Since adjusting diet, assuming more frequent blood glucose checks. Cardiovascular risk factors: advanced age (older than 55 for men, 65 for women), diabetes mellitus,hypertension, sedentary lifestyle, and smoking/ tobacco exposure Is she on JESS inhibitor or angiotensin II receptor larry? No Is she on a StatinNostatin tolerance documented per pcp Current diet: {diet habits:in general, a healthy diet , eating now with reduced sugar and CHO intake. 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 david continues to follow. Current exercise: {exercise types:no regular exercise, requires motorized w/c, h/o multiple falls. Home blood sugar records: 01/10-01/20with Lantus/diabetes medications use: checking average 2x per daybefore meals at varoius times of day, ranging 94-152, one readings >176 attributes to sweets. Majority of readings under 150. Denies hypoglycemia since discontinued lantus. Blood glucose log/ datato be scanned into chart. Date of Last Eye Exam: 01/20/2025 Date of Last Foot Exam: Wound care What current meter are you using?: glucocard When was your last flu shot?: Fall 2023 When did you have labs last?: 10/2024 The following portions of the chart were reviewed this encounter and updated as appropriate: Tobacco Allergies Meds Problems Med Hx Surg Hx Fam Hx Review of Systems Constitutional: Negative. HENT: Negative. Eyes: Negative. Respiratory: Negative. Cardiovascular: Negative. Gastrointestinal: Negative. Endocrine: See HPI Genitourinary: Negative. Musculoskeletal: Negative. Skin: Negative. Neurological: Negative. Psychiatric/Behavioral: Negative. Objective Physical Exam Vitals reviewed. Constitutional: General: She is not in acute distress. Appearance: Normal appearance. She is not ill-appearing. Comments: Appears deconditioned. HENT: Head: Normocephalic. Nose: Nose normal. Cardiovascular: Rate and Rhythm: Normal rate. Pulmonary: Effort: Pulmonary effort is normal. Musculoskeletal: General: Normal range of motion. Cervical back: Normal range of motion. Skin: General: Skin is warm and dry. Neurological: Mental Status: She is alert and oriented to person, place, and time. Gait: Gait abnormal (req w/c). Psychiatric: Mood and Affect: Mood normal. Behavior: Behavior normal. Thought Content: Thought content normal. Judgment: Judgment normal. Lab Review Glucose, Plasma (mg/dL) Date Value 10/25/2024 329 (H) 10/24/2024 214 (H) 10/23/2024 277 (H) 01/20/2023 113 (H) 01/19/2023 109 (H) 01/18/2023 102 (H) Hemoglobin A1c (%) Date Value 01/16/2023 6.5 (H) 12/15/2021 5.40 07/26/2019 4.80 CO2, Plasma (mmol/L) Date Value 01/20/2023 31 (H) 01/19/2023 30 (H) 01/18/2023 30 (H) BUN, Plasma (mg/dL) Date Value 10/25/2024 12 10/24/2024 9 10/23/2024 12 01/20/2023 7 (L) 01/19/2023 6 (L) 01/18/2023 6 (L) Creatinine, Plasma (mg/dL) Date Value 10/25/2024 0.58 10/24/2024 0.54 (L) 10/23/2024 0.58 01/20/2023 0.47 (L) 01/19/2023 0.50 (L) 01/18/2023 0.47 (L) 01/10/25 PCP labs: CMP: Cr 0.42, GFR 108, Alk phos 303, AST 82, ALT 101, total bilirubin 1.4 CBC: Hgb 11.6 11/15: Alk phos 456, Hgb 11.3, HCT 33.3 Assessment/Plan Diabetes Mellitis Type 2, is uncontrolled. Rx changes: none given excellent blood glucose control on past two weeks with diet changes, which patient affirms she can maintain long-term for continued blood glucose control. -we discussed blood glucose goals in relation to A1c control for continued blood glucose monitoring. Explained would not utilize Lantus in event of elevated blood glucose due to long-acting duration,patient understanding and agreeable, can continue to hold lantus. -start checking blood glucose two hours postprandial to assess dietary impact on blood glucose, as have affirmed FBG controlled. New FSBG meter kit and supplies sent today, patient okay to use her [id number] meter if more cost effective. She plans to keep a log of these readings and dietary intake. -Provided patient above recommendations in writing via AVS for home reference and review -we discussed impact of carbohydrates on blood glucose and importance of consistent carb diet whilebalancing and eating a moderation. Consulted CDE/RD to educate more on diabetes diet and plate method. The patient to consider referral to [facility] however transportation is concern due to requiring motorized wheelchair. -Routine care up to date -Follow up 3 months with a1c to assess continued diet only as treatment for diabetes, patient understanding and agreeable to our plan today. The following Diabetes education was reviewed: [x]SBGM to evaluate dose needs []Insulin coverage with carbohydrate intake []Site rotation [] Exercise impact on glucose levels []Driving safety related to diabetes []Sick day management []Ketone testing []Over treatment of hypoglycemia [] Hypoglycemia management [x]Call-in line use []Insulin pump pros and cons []Sensor home use []Pump class offerings []Trisha phenomena [x]Somogyi effect [] Alcohol related to diabetes [x]Benefits of written records []Pre-meal Bolusing []Daily foot care [x] Healthy diet and regular exercise [x]Long-term complications related to poor diabetes management [] Injection timing related to changes in activity/exercise #Cirrhosis -could complicate diabetes management given diagnosis and elevated liver studies. Currently no oralmedications indicated given good blood glucose control. Will continue to monitor. I personally spent a total of 45 minutes on this encounter. This time includes face to face with patient, counseling and discussion and/or coordination of care. Electronically signed by: JAVIER Majano [facility] [address] [place] [address]. [address] [place]. [address] PHONE [phone] FAX: [phone] documented in this encounter Plan of Treatment Upcoming Encounters Date Type Department Care Team (Late st Contact Info) Description 04/30/2025 9:00 AM EDT Office Visit [facility] [address] [place] [address] Roopa Martinez PA [address] [facility] [address] [place] [address] Scheduled Referrals Name Type Priority Associated Diagnoses Orde r Schedule Follow Up [facility] Outpatient Referral Routine Type 2 diabetes mellitus with hyperglycemia, without long-term current use of insulin (CMS/HCC) Expected: 04/23/2025, Expires: 02/21/2026 documented as of this encounter Visit Diagnoses Diagnosis Type 2 diabetes mellitus with hyperglycemia, without long-term current use of insulin (CMS/HCC)- Primary Cirrhosis of liver without ascites, unspecified hepatic cirrhosis type (CMS/HCC) documented in this encounter Additional Health Concerns Assessment Noted Time A fall risk assessment has been complete d for the patient 01/21/2025 8:11 AM EDT A Body Mass Index follow-up plan has been documented for the patient 01/21/2025 9:59 AM EDT documented as of this encounter Care Teams Locomotive Engineer Relationship Specialty Start Date End Date Meagan Hagan MD [address] [place] [address] [address] [place] [address] PCP - General 01/22/21 documented as of this encounter
--- OUTSIDE RECORDS SUMMARY | 2025-02-18 09:31 | XMS_ITS | Encounter Summary ---
Author Organization Healthcare Address [address] [place] [address] Care Team Providers Care Powder Blender And Pourer Name Role Phone Meagan Hagan MD Primary Care Provider [phone] Encounter Details Date Type Department Care Team (Latest Contact Info) Description 01/21/2025 Travel Social History Tobacco Use Types Packs/Day Years Used Date Smoking Tobacco: Former Cigarettes 2 10 1992 Smokeless Tobacco: Never Alcohol Use Standard Drinks/Week Comments Not Currently [...] on file documented as of this encounter Functional Status * Over the [...] Matilda Gao documented as of this encounter Plan of Treatment Upcoming Encounters Date Type Department Care Team (Late st Contact Info) Description 04/30/2025 9:00 AM EDT Office Visit [facility] [address] [place] [address] Roopa Martinez PA [address] [facility] [address] [place] [address] documented as of this encounter Visit Diagnoses Not on filedocumented in this encounter Additional Health Concerns Assessment Noted Time A fall risk assessment has been complete d for the patient 01/21/2025 8:11 AM EDT A Body Mass Index follow-up plan has been documented for the patient 01/21/2025 9:59 AM EDT documented as of this encounter Care Teams Powder Blender And Pourer Relationship Specialty Start Date End Date Meagan Hagan MD [address] [place] [address] [address] [place] [address] PCP - General 01/22/21 documented as of this encounter
--- OUTSIDE RECORDS SUMMARY | 2025-02-18 09:31 | XMS_ITS | Clinical Summary ---
Author Organization [employer] Address [address] [place] [address] Care Team Providers Care Plaster Mixer Name Role Phone Unavailable Primary Care Provider Unavailabl e Social History Tobacco Use Types Packs/Day Years Used Date Smoking Tobacco: Never Assessed Comments Unknown Sex and Gender Information Value Date Recorded Sex Assigned at Not on file Legal Sex Female 6:39 PM CDT Gender Identity Not on file Sexual Orientation Not on file Plan of Treatment Not on file
--- NOTE | 2025-02-18 09:32 | US_ITS ---
FINAL REPORT CLINICAL HISTORY: CIRRHOSIS OF LIVER COMPARISON: CT of the abdomen and pelvis 12/12/2024 FINDINGS: Sonographic images of the right upper quadrant were obtained. The pancreas is partially obscured. The liver is coarse in echotexture consistent with the clinical diagnosis of cirrhosis. Multiple gallstones are present in the gallbladder without evidence of gallbladder wall thickening or pericholecystic fluid. There is no evidence of biliary ductal dilatation.The common duct measures 5 mm. Limited images of the right kidney are unremarkable. Reviewed, Interpreted and Dictated by Kishan Krishnamurthy MD Transcribed by Emily Guillen Authenticated and . [facility]
--- OUTSIDE RECORDS SUMMARY | 2025-02-18 09:32 | XMS_ITS | Encounter Summary ---
Author Organization [employer] Address [address] [place] [address] Care Team Providers Care Newspaper Inserter Name Role Phone Unavailable Primary Care Provider Unavailabl e Encounter Details Date Type Department Care Team (Late st Contact Info) Description 04/05/2019 Transcribed Document [facility] [place] Family Medicine [address] [place] [address] ProviderLeah MD [facility] [place] [address] Social History Tobacco Use Types Packs/Day Years Used Date Smoking Tobacco: Never Assessed Comments Unknown Sex and Gender Information Value Date Recorded Sex Assigned at Not on file Legal Sex Female 6:39 PM CDT Gender Identity Not on file Sexual Orientation Not on file documented as of this encounter Miscellaneous Notes * Cerner Conversion Note - Historical ProviderMD - 04/05/2019 6:45 PM CDT Pain Assessment Entered On: 04/07/2019 1:51 EDT Performed On: 04/06/2019 23:29 EDT by Asiya Kelly Rn Intervention Information: acetaminophen-HYDROcodone Performed by Asiya Kelly Rn on 04/06/2019 22:29:00 EDT acetaminophen-HYDROcodone,1Tab Oral,Pain (Moderate 4-6) Pain Assessment Pain Assessment : Follow-up assessment Pain Scale Used : 0-10 Scale Asiya Kelly Rn - 04/07/2019 1:51 EDT Pain Scale Intensity : 6 Asiya Kelly Rn - 04/07/2019 1:51 EDT Image 4 - Images currently included in the form version of this document have not been included in the text rendition version of the form. documented in this encounter Plan of Treatment Not on file documented as of this encounter Visit Diagnoses Not on filedocumented in this encounter
--- OUTSIDE RECORDS SUMMARY | 2025-02-18 09:32 | XMS_ITS | Encounter Summary ---
Author Organization [employer] Address [address] [place] [address] Care Team Providers Care Contact Lens Technician Name Role Phone Unavailable Primary Care Provider Unavailabl e Encounter Details Date Type Department Care Team (Late st Contact Info) Description 04/06/2019 Transcribed Document [facility] [address] [place] [address] ProviderLeah MD [facility] [place] [address] Social History Tobacco Use Types Packs/Day Years Used Date Smoking Tobacco: Never Assessed Comments Unknown Sex and Gender Information Value Date Recorded Sex Assigned at Not on file Legal Sex Female 6:39 PM CDT Gender Identity Not on file Sexual Orientation Not on file documented as of this encounter Miscellaneous Notes * Cerner Conversion Note - Leah ProviderMD - 04/06/2019 9:10 AM CDT UM Authorization Entered On: 04/06/2019 9:10 EDT Performed On: 04/06/2019 9:10 EDT by ELIZABETH CASSIDY RN-Utilization Review Primary Insurance Authorization Authorization and Policy Numbers : Insurance 1 Health Plan: [employer] MEDICARE ADVANTAGE Policy Number: [id number] Authorization Number: Insurance 2 Health Plan: [employer] Policy Number: [id number] Authorization Number: Insurance Primary Name : [employer] Medicare Advantage Authorization Status-Primary : Awaiting callback Reference Number-Primary : pended Authorized Service Begin Date-Primary : 04/05/2019 EDT Authorization Comments-Primary : Uploaded clinicals to [employer] Medicare via [employer]. Historical Authorization Comments-Primary : No Authorization Comments Found ELIZABETH CASSIDY RN-Utilization Review - 04/06/2019 9:10 EDT documented in this encounter Plan of Treatment Not on file documented as of this encounter Visit Diagnoses Not on filedocumented in this encounter
--- OUTSIDE RECORDS SUMMARY | 2025-02-18 09:32 | XMS_ITS | Encounter Summary ---
Author Organization [employer] Address [address] [place] [address] Care Team Providers Care Water Attendant Name Role Phone Unavailable Primary Care Provider Unavailabl e Encounter Details Date Type Department Care Team (Late st Contact Info) Description 04/05/2019 Transcribed Document [facility] [place] Family Medicine [address] [place] [address] ProviderLeah MD [place] [address] Social History Tobacco Use Types Packs/Day Years [...] PM CDT Pain Assessment Entered On: 04/07/2019 9:02 EDT Performed On: 04/07/2019 8:55 EDT by Chante Rosas RN Intervention Information: acetaminophen Performed by Chante Rosas RN on 04/07/2019 07:55:00 EDT acetaminophen,650mg Oral,Other (See Comment) Pain Assessment Pain Assessment : Follow-up assessment Pain Scale Used : 0-10 Scale Chante Rosas RN - 04/07/2019 9:02 EDT Pain Scale Intensity : 3 Chante Rosas RN - 04/07/2019 9:02 EDT Image 4 - Images currently included in the form version of this document have not been included in the text rendition version of the form. documented in this encounter Plan of Treatment Not on file documented as of this encounter Visit Diagnoses Not on filedocumented in this encounter
--- OUTSIDE RECORDS SUMMARY | 2025-02-18 09:32 | XMS_ITS | Encounter Summary ---
Author Organization [employer] Address [address] [place] [address] Care Team Providers Care French Lecturer Name Role Phone Unavailable Primary Care Provider Unavailabl e Encounter Details Date Type Department Care Team (Late st Contact Info) Description 04/05/2019 Transcribed Document [facility] [place] Family Medicine [address] [place] [address] ProviderLeah MD [address] [place] [address] [id number] Social History Tobacco Use Types Packs/Day Years Used Date Smoking Tobacco: Never Assessed Comments Unknown Sex and Gender Information Value Date Recorded Sex Assigned at Not on file Legal Sex Female 6:39 PM CDT Gender Identity Not on file Sexual Orientation Not on file documented as of this encounter Miscellaneous Notes * Cerner Conversion Note - Historical ProviderMD - 04/05/2019 5:48 PM CDT Evaluation, Physical Therapy Entered On: 04/06/2019 15:04 EDT Performed On: 04/06/2019 13:00 EDT by JOEL PINO, PT General Information, PT Visit Type, PT : Initial evaluation Patient Orders : Order Date Order Ordering 04/05/2019 17:48 PT Evaluation and Treatment Ordered By: DALE MALDONADO MD-ORT Active Diagnoses : 04/05/2019 00:00 Arnold-Chiari 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 04/05/2019 00:00 Dizziness and giddiness 04/05/2019 00:00 Effusion, right knee 04/05/2019 00:00 Essential (primary) hypertension 04/05/2019 00:00 Hemiplegia, unspecified affecting unspecified side 04/05/2019 00:00 Hypothyroidism, unspecified 04/05/2019 00:00 Hypoxemia 04/05/2019 00:00 Lymphedema, not elsewhere classified 04/05/2019 00:00 Nonrheumatic mitral (valve) prolapse 04/05/2019 00:00 Pain in right knee 04/05/2019 00:00 Pain in right shoulder 04/05/2019 00:00 Pure hypercholesterolemia, unspecified 04/05/2019 00:00 Syringomyelia and syringobulbia 04/05/2019 00:00 Unspecified fall, initial encounter Therapy Diagnosis, PT : reduced noé Admission Date : 04/05/2019 16:34 Personal Devices : Personal Devices Glasses Assistive Devices : Assistive Devices No Devices Recorded Precautions in Place : Fall prevention measures, Fall prevention measures, high risk JOEL PINO, PT - 04/06/2019 14:53 EDT General Status Patient Received Status : Supine in bed, Bed alarm activated, HOB elevated, Other: IV, O2, RLE in cast with iceman on, R UE in sling with ice packs, RLE elevated, heel protectors, catheter Treatment Start Time : 04/06/2019 12:29 EDT Patient Left Status : Supine in bed, Family/Visitors at bedside, Communication board completed, All needs met and within reach, Other: O2, IV, ice to RUE replaced, RLE supported on pillows, heel protectors on, catheter RN/PCT Informed Comment : RN OK'd Pt for PTx Treatment End Time : 04/06/2019 13:00 EDT Treatment Time : 31 Minute(s) JOEL PINO, PT - 04/06/2019 14:53 EDT History and Environment Living Situation, Therapy : Home Patient Lives With : Alone, Parent(s) Persons Assisting Patient at Home : Alone Persons Providing Information : Patient Home Equipment Therapy, PT : Other: W/c, Rwx, O2 Home Setup : One story Stairs : No Railing Outside : No Prior LOF Assist with ADL Comment : Pt was scooting herself around in an office chair. sleeps in a recliner, IND ADL's History and Environment Comment, PT : Just built a new house to accomodate her needs. Was supposed to move in this week prior to her fall. JOEL PINO, PT - 04/06/2019 14:53 EDT Upper Extremity Upper Extremity Dominance : Right Right UE Active ROM : Impaired Right UE Strength : Impaired Left UE Active ROM : WFL Left UE Strength : Impaired Upper Extremity Comment : Torn RTC on L shoulder, PROM = WNL but AROM is limited by 90%, L elbow 3+/5, transcripter 4+/5 JOEL PINO, PT - 04/06/2019 14:53 EDT Lower Extremity RLE Active ROM : Impaired Right LE Strength : Impaired LLE Active ROM : WFL Left LE Strength : WFL JOEL PINO, PT - 04/06/2019 14:53 EDT Functional Mobility Mobility Grid Supine to Sit : Rehab Moderate assistance (Comment: x2 [JOEL PINO, PT - 04/06/2019 14:53 EDT] ) Sit to Stand : Rehab Moderate assistance (Comment: x2 [JOEL PINO, PT - 04/06/2019 14:53 EDT] ) Stand to Sit : Rehab Minimal assistance Sit to Supine : Rehab Maximal assistance JOEL PINO, PT - 04/06/2019 14:53 EDT Gait Training/Assessment, PT Weight Bearing Order Status : NWB to RUE/RLE Gait Assistance Level : Unable to assess/activity not appropriate JOEL PINO, PT - 04/06/2019 14:53 EDT Neuromuscular Reeducation, PT Balance Comment : sitting balance = good with proper position Standing = fair (-) JOEL PINO, PT - 04/06/2019 14:53 EDT Neurological/Sensory Overall Sensory Response : Impaired Overall Sensory Response Comment : L side JOEL PINO, PT - 04/06/2019 14:53 EDT Cognition Assessment, PT Orientation : Oriented x 4 JOEL PINO, PT - 04/06/2019 14:53 EDT Edu Topics Physical Therapy Education Grid Bed Mobility Training : Verbalizes understanding, Needs reinforcement Gait Training : Verbalizes understanding, Needs reinforcement Role of Physical Therapy : Verbalizes understanding, Needs reinforcement Safety : Verbalizes understanding, Needs reinforcement Transfer Training : Verbalizes understanding, Needs reinforcement JOEL PINO, PT - 04/06/2019 14:53 EDT Indication Assesessment, PT Physical Therapy Indicated : Yes PT Problem List : Impaired, bed mobility, Impaired, endurance tolerance, Impaired, gait, Impaired, standing balance, Impaired, strength, Impaired, transfers JOEL PINO, PT - 04/06/2019 14:53 EDT Plan of Care, PT PT Tx Plan/Goals Established w Patient : Yes PT Frequency Rehab : Daily PT Duration Rehab : Fourteen days PT Treatments Planned : Balance training, Bed mobility training, Caregiver training, Gait training, Safety education, Therapeutic exercises, Transfer training Plan of Care Comment, PT : Pt to be assisted to maximize mobility while in hosp. JOEL PINO, PT - 04/06/2019 14:53 EDT Alf Goals Other PT LTG Grid Goal #1 Goal #2 Goal #3 Other : Pt to be Min A x2 for sit to stand to decrease caregiver burden Pt to perform Therex x 10-15 reps to inc mobility Pt to be Mod A x2 for SPT to chair if safe to attempt Date to Meet : 04/20/2019 EDT 04/20/2019 EDT 04/20/2019 EDT Goal Status : Initial goal Initial goal Initial goal JOEL PINO, PT - 04/06/2019 14:53 EDT JOEL PINO, PT - 04/06/2019 14:53 EDT JOEL PINO, PT - 04/06/2019 14:53 EDT Treatment Note Subjective Comment : Pt was agreeable but fearful. Patient's Response to Treatment : Fair Additional Objective Information : See eval Assessment : Pt can benefit from PT to inc mobility and maximize potential prior to rehab Plan for Treatment : Daily JOEL PINO, PT - 04/06/2019 14:53 EDT Pain Assessment Pain Scaled Used : 0-10 Pain scale Pain Score Pre-Intervention : 1 Pain Score During-Intervention : 1 Pain Score Post-Intervention. : 1 JOEL PINO, PT - 04/06/2019 14:53 EDT Image 1 - Images currently included in the form version of this document have not been included in the text rendition version of the form. Anticipated Discharge Needs, OT/PT Anticipated Discharge to : Unit, rehabilitation JOEL PINO, PT - 04/06/2019 14:[address] [facility] PT Charges PT Ther Activities Ea 15 Min : 1 PT Eval Moderate Complexity : 1 JOEL PINO, PT - 04/06/2019 14:53 EDT Electronically signed by Zulma [facility] Conversion Longshore Equipment Operator Cerner at 12/26/2022 12:42 PM CDT documented in this encounter Plan of Treatment Not on file documented as of this encounter Visit Diagnoses Not on filedocumented in this encounter
--- OUTSIDE RECORDS SUMMARY | 2025-02-18 09:32 | XMS_ITS | Encounter Summary ---
Author Organization [employer] Address [address] [place] [address] Care Team Providers Care Office Services Associate Name Role Phone Unavailable Primary Care Provider Unavailabl e Encounter Details Date Type Department Care Team (Late st Contact Info) Description 04/05/2019 Transcribed Document [facility] [place] Family Medicine [address] [place] [address] ProviderLeah MD [address] [place] [address] [phone] Social History Tobacco Use Types Packs/Day Years Used Date Smoking Tobacco: Never Assessed Comments Unknown Sex and Gender Information Value Date Recorded Sex Assigned at Not on file Legal Sex Female 6:39 PM CDT Gender Identity Not on file Sexual Orientation Not on file documented as of this encounter Miscellaneous Notes * Cerner Conversion Note - Leah ProviderMD - 04/05/2019 12:32 PM CDT ED Triage Entered On: 04/05/2019 12:41 EDT Performed On: 04/05/2019 12:33 EDT by AROLDO TOSCANO Rn ED Triage Across the Room Triage Date/Time : 04/05/2019 12:33 EDT AROLDO TOSCANO Rn - 04/05/2019 12:33 EDT Chief Complaint : Pt c/o right leg pain after fall, pt paralyzed on left side, i thinkmy right arm is broke too from being lifted for 3 days. seen at [facility] yesterday and diagnosed with femur fracture, pain 11/18, took lortab at 0700. AROLDO TOSCANO Rn - 04/05/2019 12:47 EDT AROLDO TOSCANO Rn - 04/05/2019 12:47 EDT DCP GENERIC CODE Tracking Group : [facility] Tracking Acuity : 3 - Urgent AROLDO TOSCANO Rn - 04/05/2019 12:33 EDT Mode of Arrival : Stretcher Transported to ED by : Ambulance/ALS EMS Service : [facility] To Room Via : Stretcher Accompanied By : Unaccompanied ED Vital Signs : Document Height & Weight : Document ED Allergies : Document ED Reason for Visit : Document AROLDO TOSCANO Rn - 04/05/2019 12:33 EDT Infectious Disease History Infectious Disease History : Chicken pox/Shingles Fever/Chills Last 48 Hours : No Travel To Regions with Travel Advisories : No Travel Outside [place] Within Last 30 Days : No Contact With Traveler to Advisory Region : No Tuberculosis Symptoms : None AROLDO TOSCANO Rn - 04/05/2019 12:33 EDT Vital Signs ED Temperature Source : Oral Temperature Mode : Fahrenheit Temperature, Fahrenheit : 99.0 Deg F ED Pain : Yes Clinical Temperature, C : 37.2 Deg C Oxygen Therapy Mode : Room air Peripheral Pulse Rate : 78 bpm Respiratory Rate : 20 Breaths/Min Systolic Blood Pressure : 137 mmHg Diastolic Blood Pressure : 56 mmHg (LOW) Oxygen Saturation : 90 % (LOW) Vital Measurements Comment : PLACED ON 2LNC AROLDO TOSCANO Rn - 04/05/2019 12:33 EDT Allergy (As Of: 04/05/2019 12:41:20 EDT) Allergies (Active) No Known Medication Allergies Estimated Onset Date: Unspecified ; Created By: AROLDO TOSCANO Rn; Reaction Status: Active ; Category: Drug ; Substance: No Known Medication Allergies ; Type: Allergy ; Updated By: AROLDO TOSCANO Rn; Reviewed Date: 04/05/2019 12:36 EDT Diagnosis Control ED (As Of: 04/05/2019 12:41:20 EDT) Problems(Active) Arnold-Chiari malformation (SNOMED CT :110556722 ) Name of Problem: Arnold-Chiari malformation ; Recorder: AROLDO TOSCANO Rn; Confirmation: Confirmed ; Classification: Medical ; Code: 778415638 ; Contributor System: PowerChart ; Last Updated: 04/05/2019 12:35 EDT ; Life Cycle Date: 04/05/2019 ; Life Cycle Status: Active ; Vocabulary: SNOMED CT CHF (congestive heart failure) (SNOMED CT :69561736 ) Name of Problem: CHF (congestive heart failure) ; Recorder: AROLDO TOCSANO Rn; Confirmation: Confirmed ; Classification: Medical ; Code: [id number] ; Contributor System: PowerChart ; Last Updated: 04/05/2019 12:35 EDT ; Life Cycle Date: 04/05/2019 ; Life Cycle Status: Active ; Vocabulary: SNOMED CT High cholesterol (SNOMED CT :12431805 ) Name of Problem: High cholesterol ; Recorder: AROLDO TOSCANO Rn; Confirmation: Confirmed ; Classification: Medical ; Code: 13941636 ; Contributor System: PowerChart ; Last Updated: 04/05/2019 12:35 EDT ; Life Cycle Date: 04/05/2019 ; Life Cycle Status: Active ; Vocabulary: SNOMED CT Hypertension (SNOMED CT :5589578521 ) Name of Problem: Hypertension ; Recorder: AROLDO TOSCANO Rn; Confirmation: Confirmed ; Classification: Medical ; Code: [id number] ; Contributor System: PowerChart ; Last Updated: 04/05/2019 12:35 EDT ; Life Cycle Date: 04/05/2019 ; Life Cycle Status: Active ; Vocabulary: SNOMED CT Hypothyroid (SNOMED CT :56646297 ) Name of Problem: Hypothyroid ; Recorder: AROLDO TOSCANO Rn; Confirmation: Confirmed ; Classification: Medical ; Code: [id number] ; Contributor System: PowerChart ; Last Updated: 04/05/2019 12:35 EDT ; Life Cycle Date: 04/05/2019 ; Life Cycle Status: Active ; Vocabulary: SNOMED CT Diagnoses(Active) Leg pain-swelling Date: 04/05/2019 ; Diagnosis Type: Reason For Visit ; Confirmation: Complaint of ; Clinical Dx: Leg pain-swelling ; Classification: Medical ; Clinical Service: Emergency medicine ; Code: PNED ; Probability: 0 ; Diagnosis Code: [id number] ED Height and Weight Height Source : Stated Height Entry Format : [place] Height, Feet : 5 ft(Converted to: 152 cm, 60 Inch) Height, Inches : 3 Inch(Converted to: 0 ft 3 Inch, 7.62 cm) Clinical Height : 160.02 cm Weight Source, ED : Critical estimated dosing weight Weight Entry Format : [place] Weight, Pounds : 170 lb Clinical Dosing Weight : 77.27 kg Body Surface Area (BSA) : 1.81 m2 Body Mass Index : 30.2 kg/m2 (HI) [place] Body Weight (IBW) : 52.02 kg AROLDO TOSCANO Rn - 04/05/2019 12:33 EDT Pain Assessment Pain Assessment : Initial assessment Pain Scale Used : 0-10 Scale AROLDO TOSCANO Rn - 04/05/2019 12:33 EDT Pain Scale Intensity : 3 AROLDO TOSCANO Rn - 04/05/2019 12:33 EDT Image 4 - Images currently included in the form version of this document have not been included in the text rendition version of the form. documented in this encounter Plan of Treatment Not on file documented as of this encounter Visit Diagnoses Not on filedocumented in this encounter
--- OUTSIDE RECORDS SUMMARY | 2025-02-18 09:32 | XMS_ITS | Encounter Summary ---
Author Organization [employer] Address [address] [place] [address] Care Team Providers Care Bonderizer Operator Name Role Phone Unavailable Primary Care Provider Unavailabl e Encounter Details Date Type Department Care Team (Late st Contact Info) Description 04/05/2019 Transcribed Document [facility] [place] Family Medicine [address] [place] [address] ProviderLeah MD [address] [place] [phone] Social History Tobacco Use Types Packs/Day Years [...] ProviderMD - 04/05/2019 12:32 PM CDT ED Assessment Entered On: 04/05/2019 12:53 EDT Performed On: 04/05/2019 12:49 EDT by AROLDO TOSCANO Rn ED Quick Look Assessment Level of Consciousness : Alert, Awake Affect/Behavior : Appropriate, Calm, Cooperative Orientation : Oriented x 4 Skin Temperature : Warm AROLDO TOSCANO Rn - 04/05/2019 12:49 EDT ED General-Functional Assess Information Obtained From : Patient Communication Barrier : None Primary Language : Portuguese Any Spiritual/Cultural Needs or Requests : No Currently in Unsafe Situation : No AROLDO TOSCANO Rn - 04/05/2019 12:49 EDT Social Habits Smoking Status : Never (less than 100 in lifetime; none in last 30 days) Smokeless Tobacco Status : Never Desires Tobacco Cessation Calc : 0 AROLDO TOSCANO Rn - 04/05/2019 12:49 EDT Social History (As Of: 04/05/2019 12:53:51 EDT) Tobacco: Never (less than 100 in lifetime) Smoking Status. Never Smokeless Tobacco Status. (Last Updated: 04/05/2019 12:49:54 EDT by AROLDO TOSCANO, Shelley) Alcohol: Alcohol Use History No. Use in Last 12 Months: No. (Last Updated: 04/05/2019 12:50:00 EDT by AROLDO TOSCANO, Shelley) Substance Abuse: Drug Use Hx: No. Use in Last 12 Months: No. (Last Updated: 04/05/2019 12:50:04 EDT by AROLDO TOSCANO, hSelley) Musculoskeletal Musculoskeletal Assessment Comment : Pt c/o right leg pain after fall, seen at [facility] yesterday, splint in place, i think my right arm is broke too because of all the lifting. pain 11/18, took lortab 7.5/325mg at 0700 AROLDO TOSCANO, Shelley - 04/05/2019 12:49 EDT documented in this encounter Plan of Treatment Not on file documented as of this encounter Visit Diagnoses Not on filedocumented in this encounter
--- OUTSIDE RECORDS SUMMARY | 2025-02-18 09:32 | XMS_ITS | Encounter Summary ---
Author Organization [employer] Address [address] [place] [address] Care Team Providers Care Correctional Program Specialist Name Role Phone Unavailable Primary Care Provider Unavailabl e Encounter Details Date Type Department Care Team (Late st Contact Info) Description 04/10/2019 Transcribed Document [facility] [place] [address] [place] [address] ProviderLeah MD [facility] [place] [address] Social History Tobacco Use Types Packs/Day Years Used Date Smoking Tobacco: Never Assessed Comments Unknown Sex and Gender Information Value Date Recorded Sex Assigned at Not on file Legal Sex Female 6:39 PM CDT Gender Identity Not on file Sexual Orientation Not on file documented as of this encounter Miscellaneous Notes * Cerner Conversion Note - Historical ProviderMD - 04/10/2019 8:06 AM CDT Patient: CAMACHO STANLEY Age: 58 Years Sex: Female : 1960 c/o pain about edge of cast at ankle no other concerns RUE - exam unchanged RLE - cast has sharp edge of cast rubbing skin. skin intact. grossly NVI/both right extremities s/p cylinder cast of right femur/tibia fx right proximal humerus fx. continue present caar cast cut back and padded Electronically signed by Zulma [facility] Conversion Glass Checker Cerner at 12/26/2022 1:03 PM CDT documented in this encounter Plan of Treatment Not on file documented as of this encounter Visit Diagnoses Not on filedocumented in this encounter
--- OUTSIDE RECORDS SUMMARY | 2025-02-18 09:32 | XMS_ITS | Encounter Summary ---
Author Organization [employer] Address [address] [place] [address] Care Team Providers Care Water Fabricator Operator Name Role Phone Unavailable Primary Care Provider Unavailabl e Encounter Details Date Type Department Care Team (Late st Contact Info) Description 04/05/2019 Transcribed Document [facility] [place] Family Medicine [address] [place] [address] ProviderLeah MD [address] [place] [address] [phone] Social History Tobacco Use Types Packs/Day Years Used Date Smoking Tobacco: Never Assessed Comments Unknown Sex and Gender Information Value Date Recorded Sex Assigned at Not on file Legal Sex Female 6:39 PM CDT Gender Identity Not on file Sexual Orientation Not on file documented as of this encounter Miscellaneous Notes * Cerner Conversion Note - Leah ProviderMD - 04/05/2019 6:45 PM CDT Pain Assessment Entered On: 04/06/2019 6:01 EDT Performed On: 04/06/2019 3:46 EDT by Cinda Mckenzie RN Intervention Information: acetaminophen-HYDROcodone Performed by Cinda Mckenzie RN on 04/06/2019 02:46:00 EDT acetaminophen-HYDROcodone,2Tab Oral,Pain (Severe 7-10) Pain Assessment Pain Assessment : Follow-up assessment Pain Scale Used : FACES Pain Intervention, Drug : Medicated Pain Improved by Intervention : Yes Cinda Mckenzie RN - 04/06/2019 6:01 EDT Pain Scale Intensity : 2 Cinda Mckenzie RN - 04/06/2019 6:01 EDT Image 4 - Images currently included in the form version of this document have not been included in the text rendition version of the form. documented in this encounter Plan of Treatment Not on file documented as of this encounter Visit Diagnoses Not on filedocumented in this encounter
--- OUTSIDE RECORDS SUMMARY | 2025-02-18 09:32 | XMS_ITS | Encounter Summary ---
Author Organization [employer] Address [address] [place] [address] Care Team Providers Care Progress Developer Name Role Phone Unavailable Primary Care Provider Unavailabl e Encounter Details Date Type Department Care Team (Late st Contact Info) Description 04/07/2019 Transcribed Document [facility] [place] [address] [place] [address] ProviderLeah MD [address] [place] [address] Social History Tobacco Use Types Packs/Day Years Used Date Smoking Tobacco: Never Assessed Comments Unknown Sex and Gender Information Value Date Recorded Sex Assigned at Not on file Legal Sex Female 6:39 PM CDT Gender Identity Not on file Sexual Orientation Not on file documented as of this encounter Miscellaneous Notes * Cerner Conversion Note - Historical ProviderMD - 04/07/2019 2:00 AM CDT Dealer Sales Manager Details Entered On: 04/07/2019 3:53 EDT Performed On: 04/07/2019 2:00 EDT by Asiya Kelly, Rn Order Details Transport Mode Order Detail : Wheelchair Isolation Precautions Order Detail : Standard Precautions Order Detail : 0 IV Order Detail : 1 Oxygen Order Detail : 0 Nurse Collect Order Detail : 0 Lift/Transfer : Moderate assist Central Line Order Detail : No Room Service : Not Appropriate Arterial Line : No Asiya Kelly, Rn - 04/07/2019 3:52 EDT Electronically signed by Umm [employer] Conversion Gas Distribution And Emergency Clerk Cerner at 12/26/2022 1:02 PM CDT documented in this encounter Plan of Treatment Not on file documented as of this encounter Visit Diagnoses Not on filedocumented in this encounter
--- OUTSIDE RECORDS SUMMARY | 2025-02-18 09:32 | XMS_ITS | Referral Summary ---
Author Organization [employer] Address [address] [place] [address] Care Team Providers Care Icebox Man Name Role Phone Unavailable Primary Care Provider [...]
--- OUTSIDE RECORDS SUMMARY | 2025-02-18 09:32 | XMS_ITS | Encounter Summary ---
Author Organization Healthcare Address [address] [place] [address] Care Team Providers Care Architecture Internship Name Role Phone Meagan Hagan MD Primary Care Provider [phone] Reason for Visit * Reason Onset Date Comments Prior-authorization/insurance Verification 01/21 Encounter Details Date Type Department Care Team (Late st Contact Info) Description [facility] [address] [place] [address] Roopa Martinez PA [address] [facility] [address] [place] [address] Prior-authorization/in surance Verification Social History Tobacco Use Types Packs/Day Years Used Date Smoking Tobacco: Former Cigarettes 2 10 1 983 - 1992 Smokeless Tobacco: Never Alcohol Use Standard [...] as of this encounter Miscellaneous Notes * Telephone Encounter - Jayne Allison PharmD - 01/21/2025 2:30 PM EDT Prior authorization request received, however no PA is required. Medication: Test strips Additional info: test claim shows paid claim with [employer] plan. Called dispensing pharmacy and they were billing pts Part D. Assisted with billing and dispensing pharmacy confirmed paid claim. * Telephone Encounter - Cecelia Ring - 01/21/2025 11:27 AM EDT Images from the original note were not included. Prior authorization requested for One Touch Ultra Strips. Ordered by Roopa Martinez. documented in this encounter Plan of Treatment Upcoming Encounters Date Type Department Care Team (Late st Contact Info) Description 04/30/2025 9:00 AM EDT [facility] [address] [place] [phone] Roopa Martinez PA [address] [facility] [address] [place] [phone] documented as of this encounter Visit Diagnoses Not on filedocumented in this encounter Additional Health Concerns Assessment Noted Time A fall risk assessment has been complete d for the patient 01/21/2025 8:11 AM EDT A Body Mass Index follow-up plan has been documented for the patient 01/21/2025 9:59 AM EDT documented as of this encounter Care Teams Architecture Internship Relationship Specialty Start Date End Date Meagan Hagan MD [address] [place] [address] [address] [place] [address] PCP - General 01/22/21 documented as of this encounter
--- OUTSIDE RECORDS SUMMARY | 2025-02-18 09:32 | XMS_ITS | Encounter Summary ---
Author Organization [employer] Address [address] [place] [address] Care Team Providers Care Paratransit Driver Name Role Phone Unavailable Primary Care Provider Unavailabl e Encounter Details Date Type Department Care Team (Late st Contact Info) Description 04/10/2019 Transcribed Document [facility] Family Medicine [address] [place] [address] ProviderLeah MD [address] [place] [address] Social History Tobacco Use Types Packs/Day Years Used Date Smoking Tobacco: Never Assessed Comments Unknown Sex and Gender Information Value Date Recorded Sex Assigned at Not on file Legal Sex Female 6:39 PM CDT Gender Identity Not on file Sexual Orientation Not on file documented as of this encounter Miscellaneous Notes * Cerner Conversion Note - Historical ProviderMD - 04/10/2019 2:00 AM CDT Ground Surveillance Systems Operator Details Entered On: 04/10/2019 1:56 EDT Performed On: 04/10/2019 2:00 EDT by Carolina Reyes Rn-Resource Order Details Transport Mode Order Detail : Wheelchair Isolation Precautions Order Detail : Standard Precautions Order Detail : 0 IV Order Detail : 1 Oxygen Order Detail : 1 Nurse Collect Order Detail : 0 Lift/Transfer : Moderate assist Central Line Order Detail : No Room Service : Not Appropriate Arterial Line : No Carolina Reyes Rn-Resource - 04/10/2019 1:56 EDT Electronically signed by Umm Maya Conversion Procurement Professional Logistics Soledad at 12/26/2022 12:56 PM CDT documented in this encounter Plan of Treatment Not on file documented as of this encounter Visit Diagnoses Not on filedocumented in this encounter
--- OUTSIDE RECORDS SUMMARY | 2025-02-18 09:32 | XMS_ITS | Encounter Summary ---
Author Organization [employer] Address [address] [place] [address] Care Team Providers Care Brake Lining Driller Name Role Phone Unavailable Primary Care Provider Unavailabl e Encounter Details Date Type Department Care Team (Late st Contact Info) Description 04/05/2019 Transcribed Document [facility] Family Medicine [address] [place] [address] ProviderLeah MD [address] [place] [id number] Social History Tobacco Use Types Packs/Day Years Used Date Smoking Tobacco: Never Assessed Comments Unknown Sex and Gender Information Value Date Recorded Sex Assigned at Not on file Legal Sex Female 6:39 PM CDT Gender Identity Not on file Sexual Orientation Not on file documented as of this encounter Miscellaneous Notes * Cerner Conversion Note - Historical ProviderMD - 04/05/2019 5:52 PM CDT Evaluation, Occupational Therapy Entered On: 04/06/2019 13:50 EDT Performed On: 04/06/2019 13:09 EDT by LUCIA TUCKER OTR/Bindu General Information, OT Visit Type, OT : Initial evaluation Patient Orders : Order Date Order Ordering 04/05/2019 17:52 OT Evaluation and Treatment Ordered By: DALE STANLEY MD-ORT Active Diagnoses : 04/05/2019 00:00 Arnold-Chiari [...] 00:00 Unspecified fall, initial encounter Therapy Diagnosis, OT : reduced mobility Onset of Problem, OT : 04/05/2019 EDT Admission Date : 04/05/2019 16:34 Assisted by, OT : Physical Therapist Personal Devices : Personal Devices Glasses Assistive Devices : Assistive Devices No Devices Recorded Precautions in Place : Fall prevention measures, Fall prevention measures, high risk General Information Comment, OT : s/p right knee aspiration w/Dr. Stanley; right femur Rx w/cast; right shoulder Fx w/sling; NWB right U/LEs; left kacey-paresis; Arnold Chiari malformation; lives alone; IND with I/ADLs @[facility]; plan for rehab; Ax2 LUCIA TUCKER OTR/L - 04/06/2019 13:10 EDT General Status Patient Received Status : Supine in bed, HOB elevated, Other: parents present; cast RLE; sling RUE; pierre cath; IV; 02 Treatment Start Time : 04/06/2019 12:29 EDT Patient Left Status : Long sitting in bed, Family/Visitors at bedside, All needs met and within reach, Other: all lines re-connected; pt left as received RN/PCT Informed Comment : nursing ok'ed eval; ID and verified. Treatment End Time : 04/06/2019 13:09 EDT Treatment Time : 40 Minute(s) Actual Treatment Time : 40 Minute(s) LUCIA TUCKER OTR/L - 04/06/2019 13:10 EDT History and Environment, OT Living Situation, Therapy : Home Patient Lives With : Alone, Parent(s) Persons Assisting Patient at Home : Alone Persons Providing Information : Patient Home Equipment, Therapy : Bar, grab, Shower Equipment, Supplies, Walker, Wheelchair, Other: Newly built completely ADA accessible home Shower Equipment Comment : step-in tub Supplies : Supplies, oxygen Supplies Comment : uses at night only at home Walker : Walker, front wheel Wheelchair : Wheelchair, standard Wheelchair Comment : pt reported that she has been pushing herself through the house in an office chair; pt recently obtained a WC; pt encouraged to use WC moving forward due to lack of brakes on office chair and fall risk with tranfers. Home Setup : One story Stairs : No Railing Outside : No LUCIA TUCKER OTR/Bindu 04/06/2019 13:10 EDT Prior LOF Bathing, OT : Independent Prior LOF Bed Mobility : Independent Prior LOF Upper Body Dressing, OT : Independent Prior LOF Lower Body Dressing, OT : Independent Prior LOF Toileting : Independent Prior LOF Transfer : Independent Prior LOF Grooming, OT : Independent Prior LOF for IADLs, OT : Independent LUCIA TUCKER OTR/Bindu - 04/06/2019 13:10 EDT Prior LOF for IADLs, OT : Mod I to IND w/IADLs. Pt reported that she was driving at [facility]. Prior LOF Assist with ADL Comment : Pt Mod I to IND w/self-care at [facility]. History and Environment Comment, OT : Pt's ADA accessible home was recently finished and is now move-in ready. LUCIA TUCKER OTR/Bindu 04/06/2019 13:10 EDT Upper Extremity Upper Extremity Dominance : Right Right UE Active ROM : Impaired Right UE Strength : Impaired Left UE Active ROM : Impaired Left UE Strength : Impaired LUCIA TUCKER OTR/Bindu 04/06/2019 13:10 EDT Left Upper Extremity Detailed ROM Grid Left Shoulder Flexion Range Left Shoulder Abduction Range Left Elbow Flexion Range Left Elbow Extension Range Active : <10% AROM <10% AROM WFL WFL Comment : Full PROM Full PROM LUCIA TUCKER OTR/Bindu 04/06/2019 13:10 EDT LUCIA TUCKER OTR/Bindu - 04/06/2019 13:10 EDT LUCIA TUCKER OTR/Bindu 04/06/2019 13:10 EDT LUCIA TUCKER OTR/Bindu 04/06/2019 13:10 EDT Right Hand AROM Comment : WFL Left Hand AROM Comment : WFL Right UE Strength : Impaired Left UE Strength : Impaired Right UE Strength Comment : Not tested; in sling. Left UE Strength Comment : 3+/5 shoulder flexion Elbow flexion greater than elbow extension LUCIA TUCKER OTR/Bindu 04/06/2019 13:10 EDT Self Care/Home Management, OT Self Feeding Assist Level, OT : Supervision or set-up Grooming Assist Level, OT : Assist, minimal Bathing Assist Level, OT : Assist, maximal Upper Body Dressing Assist Level, OT : Assist, maximal Lower Body Dressing Assist Level, OT : Assist, total Toileting Assist Level : Assist, total Toileting Device : Other: bed blum Toileting Comment : Pt w/pierre cath. Pt w/requried bed-blum use during time of eval due to unsuccessful attempt to stand-pivot to [facility]. Toilet Transfer Assist Level : Assist, total Toilet Transfer Comment : Total A to roll to left side (to avoid rolling on right Fx shoulder) for bed pain placement; pt unable to assist in roll w/RLE due to straight cast. Self Care/Home Management Comment, OT : Cues for safety, hand placement, precautions, strategies, sequencing, and PLB. LUCIA TUCKER OTR/Bindu 04/06/2019 13:10 EDT Functional Mobility Mobility Grid Bed Roll Left : Rehab Total assistance (Comment: x1 to avoid rolling on right shoulder [LUCIA TUCKER OTR/Bindu 04/06/2019 13:10 EDT] ) Supine to Sit : Rehab Moderate assistance (Comment: Mod-Max A x2 w/HOB elevated; assist needed toward second half of transfer; cues for sequencing/hand placement/strategy; extra time requried for slow pacing [LUCIA TUCKER OTR/Bindu Gomez 04/06/2019 13:10 EDT] ) Sit to Stand : Rehab Moderate assistance (Comment: Min-Mod A x2 + cues for hand placement + bed elevated; pt required > assist on right side than left due to R-side limitations [LUCIA TUCKER OTR/Bindu 04/06/2019 13:10 EDT] ) Stand to Sit : Rehab Minimal assistance (Comment: CG-Min A x2 + cues for hand placement/safety [LUCIA TUCKER OTR/Bindu Gomez 04/06/2019 13:10 EDT] ) Sit to Supine : Rehab Maximal assistance (Comment: x2 + cues for sequencing [LUCIA TUCKER OTR/Bindu 04/06/2019 13:10 EDT] ) LUCIA TUCKER OTR/L - 04/06/2019 13:10 EDT Bed Comment : Max x1 to scoot to EOB in sitting; cues for hand placement/strategy. Max-Total A x2 to scoot to HOB in supine; pt attempted to assist w/LLE. Functional MobilityComment : Pt SBA w/static sitting at EOB. Pt stood at EOB, statically, with gait belt, left HH assist, mild unsteadiness and observed questionable adherence w/NWB on RLE. Pt unable to pivot on left foot for SPT/BSC-use. Pt returned to sitting at EOB. LUCIA TUCKER OTR/Bindu Gomez 04/06/2019 13:10 EDT Activity Tolerance, OT Activity Comment : Poor to fair tolerance/endurance; pt limited by left-side weakness, impaired bilateral UE/LE strength, impaired RLE/RUE/LUE AROM, impaired standing balance, difficulty maintaining NWB on RLE, fatigue w/light activity. LUCIA TUCKER OTR/Bindu 04/06/2019 13:10 EDT Neurological/Sensory Overall Sensory Response : Impaired Overall Sensory Response Comment : reported chronic LUE numbness/tingling. Response to Pain : Intact Light Touch Response : Intact LUCIA TUCKER OTR/Bindu 04/06/2019 13:10 EDT Cognition Assessment, OT Orientation : Oriented x 4 Follows Basic Command Assessment, OT : Intact Attention Assessment : Present LUCIA TUCKER OTR/Bindu 04/06/2019 13:10 EDT Education OT Occupational Therapy Education Grid Activity of Daily Living Training : Verbalizes understanding, Returns demonstration, Needs further teaching Balance Training : Verbalizes understanding, Returns demonstration, Needs further teaching (Comment: standing balance addressed [LUCIA TUCKER OTR/Bindu 04/06/2019 13:10 EDT] ) Functional Mobility Training : Verbalizes understanding, Returns demonstration, Needs further teaching Home Program/Exercises : Verbalizes understanding, Returns demonstration, Needs further teaching (Comment: Pt received theraband & left leaf sorter to use on left side; pt instructed in left ankle/UE strengthening using band & left leaf sorter; pt reminded to NOT use these materials on right side due to NWB & activity limitation statuses; pt VU. [LUCIA TUCKER OTR/Bindu 04/06/2019 13:10 EDT] ) Precaution/Contraindication : Verbalizes understanding, Returns demonstration, Needs further teaching (Comment: NWB on RUE/LE; no pushing, pulling, lifting, range of right shoulder; pt VU and returned demo during session. [LUCIA TUCKER OTR/Bindu - 04/06/2019 13:10 EDT] ) Role of Occupational Therapy : Verbalizes understanding LUCIA TUCKER OTR/Bindu - 04/06/2019 13:10 EDT Teaching/Learning Assessment Barriers To Learning : None evident Individuals Taught : Patient Readiness to Learn : Cooperative Readiness to Learn : Demonstration, Explanation Learning Style Preferences Patient : Demonstration, Printed materials, Verbal explanation Learning Style Preferences Family : Demonstration, Printed materials, Verbal explanation LUCIA TUCKER OTR/Bindu 04/06/2019 13:10 EDT Indication Assessment, OT Occupational Therapy Indicated : Yes Problem List, OT : Impaired, bed mobility, Impaired, activities daily living, Impaired, endurance tolerance, Impaired functional mobility, Impaired, joint mobility, Impaired, sensation, Impaired, standing balance, Impaired, strength, Impaired, transfers, Pain limiting function Potential Barriers, OT : Fatigue, Pain Rehabilitation Potential, OT : Fair LUCIA TUCKER OTR/Bindu - 04/06/2019 13:10 EDT Plan of Care, OT OT Tx Plan/Goals Established w Patient : Yes OT Frequency Rehab : Other: 3-5 days/wk OT Duration Rehab : Fourteen days OT Treatments Planned : Activities of daily living, Balance training, Caregiver training, Cognitive/perceptual, Functional mobility training, Pain management, Safety education, Therapeutic activities, Therapeutic exercises Plan of Care Comment, OT : Pt would benefit from skilled OT services addressing reduced mobility, limiting ADL performance, in order to return to PLOF. LUCIA TUCKER OTR/Bnidu - 04/06/2019 13:10 EDT Advertising Copywriter Goals, OT Other LTG Grid Goal #1 Goal #2 Goal #3 Goal #4 Goal : Pt will VU of sling removal/application, wearing schedule, and shoulder precautions. Pt will return demo of RUE elbow, wrist, & hand AROM. Pt will VU of applicable LB ADL AE as it relates to precautions/activity limitations. Pt will VU of one-handed UB self-care strategies. Date to Meet : 04/13/2019 EDT 04/13/2019 EDT 04/13/2019 EDT 04/13/2019 EDT Goal Status : Initial goal Initial goal Initial goal Initial goal Comment : Note: Pt has leg leaf sorter in room. Pt may not be able to manipulate sock aid w/x1 UE. LUCIA TUCKER OTR/Bindu - 04/06/2019 13:10 EDT LUCIA TUCKER OTR/Bindu - 04/06/2019 13:10 EDT LUCIA TUCKER OTR/Bindu - 04/06/2019 13:10 EDT LUCIA TUCKER OTR/Bindu - 04/06/2019 13:10 EDT Treatment Note Subjective Comment : Pt ok'ed eval/tx. Patient's Response to Treatment : Poor to fair response; pt limited by left-side weakness, impaired bilateral UE/LE strength, impaired RLE/RUE/LUE AROM, impaired standing balance, difficulty maintaining NWB on RLE, fatigue w/light activity. Pt cooperative, very motivated, receptive to education, and very pleasant. Additional Objective Information : EVAL = 15 minutes SELF-CARE = 25 minutes (Extra time for slow pacing.) Assessment : Pt would benefit from skilled OT services addressing reduced mobility, limiting ADL performance, in order to return to OF. Pt would benefit from continued rehab therapy services upon DC from this acute care setting. Plan for Treatment : Pt to receive skilled OT services 3-5 days/wk for 7 days. LUCIA TUCKER OTR/Bindu - 04/06/2019 13:10 EDT Pain Assessment Pain Scaled Used : 0-10 Pain scale Pain Comment : Pt reported 0 to 1/10 pain in right arm. LUCIA TUCKER OTR/Bindu - 04/06/2019 13:10 EDT Image 1 - Images currently included in the form version of this document have not been included in the text rendition version of the form. Anticipated Discharge Needs, OT/PT Anticipated Discharge to : Other: TBD Anticipated Home Equipment : ADL Equipment ADL Equipment : Track Laying Equipment Operator, leg, Groundwater Monitoring Technician, [place], long handled, Sponge, long handled LUCIA TUCKER OTR/Bindu - 04/06/2019 13:10 EDT [place] OT Charges OT Selfcare/Hm Mgmt Ea 15 Min : 2 OT Eval Moderate Complexity : 1 LUCIA TUCKER OTR/Bindu - 04/06/2019 13:10 EDT documented in this encounter Plan of Treatment Not on file documented as of this encounter Visit Diagnoses Not on filedocumented in this encounter
--- OUTSIDE RECORDS SUMMARY | 2025-02-18 09:32 | XMS_ITS | Encounter Summary ---
Author Organization [employer] Address [address] [place] [address] Care Team Providers Care Shirt Sewer Name Role Phone Unavailable Primary Care Provider Unavailabl e Encounter Details Date Type Department Care Team (Late st Contact Info) Description 04/10/2019 Transcribed Document [facility] Family Medicine [address] [place] [address] ProviderLeah MD [address] [place] [address] [id number] Social History Tobacco Use Types Packs/Day Years Used Date Smoking Tobacco: Never Assessed Comments Unknown Sex and Gender Information Value Date Recorded Sex Assigned at Not on file Legal Sex Female 6:39 PM CDT Gender Identity Not on file Sexual Orientation Not on file documented as of this encounter Miscellaneous Notes * Cerner Conversion Note - Leah ProviderMD - 04/10/2019 4:26 PM CDT [address] [address] KRYSTALROMANATIFFANIE ROXANNE :1960 Visit Time:04/05/2019 Your Visit Summary Your Care Team Admitting Physician - EMILY STEWART MD-[facility] TIANA, UNKNOWN Attending Physician - EMILY STEWART MD-[facility] Primary Care Physician - MARIS CORLEY (REF)MD-[facility] Referring Physician - TIANA, SELF REFERRED Your Diagnosis Arnold-Chiari malformation Bilateral lower extremities Lymphedema Dizziness Fall Hypercholesterolemia Hypertension Hypothyroid Left sided hemiparesis Mitral valve prolapse On home oxygen Right knee effusion Right knee pain and swelling Right shoulder pain and swelling Syringomyelia Unspecified fracture of unspecified femur, initial encounter for closed fracture, Unspecified fracture of unspecified femur, initial encounter for closed fracture Discharge Vitals Temperature 36.8 ??C Heart Rate (Monitored) 76 Blood Pressure 114/57 What to do next Instructions From Your Care Team Discharge Activity: Discharge Activity: Activity as tolerated Diet: Discharge Diet: Resume usual diet as tolerated Follow-Up Appointments Follow Up with DALE MALDONADO MD-ORT When Within 2 to 3 days Where: [address] [facility] [address] [place] [address]- Medications What How Much When Instructions Next Dose ARIPiprazole (Abilify) 2 Milligram(s) Oral At Bedtime levothyroxine (Synthroid) 25 Microgram(s) Oral Every Day spironolactone 25 Milligram(s) Oral Two Times A Day acetaminophen-hydrocodone (Parkman 7.5 mg-325 mg oral tablet) 1 Tablet(s) Oral Every 6 Hours as needed for as needed for pain atorvastatin (atorvastatin 10 mg oral tablet) 1 Tablet(s) Oral At Bedtime atropine-diphenoxylate (Lomotil 2.5 mg-0.025 mg oral tablet) 1 Tablet(s) Oral Two Times A Day May take additional doses if needed carvedilol (carvedilol 25 mg oral tablet) 0.5 Tablet(s) Oral Two Times A Day furosemide (furosemide 40 mg oral tablet) 0.5 Tablet(s) Oral Every Day In the afternoon potassium chloride (potassium chloride 20 mEq oral tablet, extended release) 1 Tablet(s) Oral Every Day In the afternoon venlafaxine (venlafaxine 150 mg oral capsule, extended release) 1 Capsule(s) Oral At Bedtime Take your medications faithfully. Do NOT skip medication. Do NOT stop taking medications without the direction of a physician. Carry a list of your medications with you at all times, and take this medication list with you to your first follow up visit. Report any side effects. Avoid herbal remedies unless discussed with your physician. As part of your treatment plan, your physician may have prescribed a limited course of a controlled substance. This medication may be given to help people with moderate or severe pain or for other medical conditions, but there are risks involved with treatment. Common side effects may include nausea, constipation, drowsiness, sweating, itching, dry mouth, and rash. More serious side effects may include cognitive and motor impairment, like problems with thinking, concentrating, alertness, and movement (e.g. slowed reflexes), and driving and operating heavy machinery can be dangerous. It is important for you to talk to your physician if you have these side effects or questions. These controlled substances can produce physical dependence and be habit-forming if taken for an extended period of time, which means that the body has gotten used to them and may experience withdrawal symptoms if they are abruptly stopped. Withdrawal symptoms can include runny nose, sweating, goose bumps, diarrhea, abdominal cramping, rapid heartbeat, difficulty sleeping, and nervousness. Please dispose of unused and medications per your retail pharmacy guidance. Allergies No Known Medication Allergies Immunizations This Visit No Immunizations Found Education Materials Cast or Splint Care, Adult Casts and splints are supports that are worn to protect broken bones and other injuries. A cast or splint may hold a bone still and in the correct position while it heals. Casts and splints may also help to ease pain, swelling, and muscle spasms. How to care for your cast ??? Do not stick anything inside the cast to scratch your skin. ??? Check the skin around the cast every day. Tell your doctor about any concerns. ??? You may put lotion on dry skin around the edges of the cast. Do not put lotion on the skin under the cast. ??? Keep the cast clean. ??? If the cast is not waterproof: ? Do not let it get wet. ? Cover it with a watertight covering when you take a bath or a shower. How to care for your splint ??? Wear it as told by your doctor. Take it off only as told by your doctor. ??? Loosen the splint if your fingers or toes tingle, get numb, or turn cold and blue. ??? Keep the splint clean. ??? If the splint is not waterproof: ? Do not let it get wet. ? Cover it with a watertight covering when you take a bath or a shower. Follow these instructions at home: Bathing ??? Do not take baths or swim until your doctor says it is okay. Ask your doctor if you can take showers. You may only be allowed to take sponge baths for bathing. ??? If your cast or splint is not waterproof, cover it with a watertight covering when you take a bath or shower. Managing pain, stiffness, and swelling ??? Move your fingers or toes often to avoid stiffness and to lessen swelling. ??? Raise (elevate) the injured area above the level of your heart while sitting or lying down. Safety ??? Do not use the injured limb to support your body weight until your doctor says that it is okay. ??? Use crutches or other assistive devices as told by your doctor. General instructions ??? Do not put pressure on any part of the cast or splint until it is fully hardened. This may take many hours. ??? Return to your normal activities as told by your doctor. Ask your doctor what activities are safe for you. ??? Keep all follow-up visits as told by your doctor. This is important. Contact a doctor if: ??? Your cast or splint gets damaged. ??? The skin around the cast gets red or raw. ??? The skin under the cast is very itchy or painful. ??? Your cast or splint feels very uncomfortable. ??? Your cast or splint is too tight or too loose. ??? Your cast becomes wet or it starts to have a soft spot or area. ??? You get an object stuck under your cast. Get help right away if: ??? Your pain gets worse. ??? The injured area tingles, gets numb, or turns blue and cold. ??? The part of your body above or below the cast is swollen and it turns a different color (is discolored). ??? You cannot feel or move your fingers or toes. ??? There is fluid leaking through the cast. ??? You have very bad pain or pressure under the cast. ??? You have trouble breathing. ??? You have shortness of breath. ??? You have chest pain. This information is not intended to replace advice given to you by your health care provider. Make sure you discuss any questions you have with your health care provider. Document Released: 12/28/2011 Document Revised: 08/18/2017 Document Reviewed: 08/18/2017 [employer] Patient Education ?? 2019 [employer] acetaminophen and hydrocodone (a SEET a MIN oh fen and gerri droe KOE done) Hycet, Lorcet, Parkman, Verdrocet, Vicodin, Xodol, Zamicet What is the most important information I should know about acetaminophen and hydrocodone? MISUSE OF OPIOID MEDICINE CAN CAUSE ADDICTION, OVERDOSE, OR . Keep the medication in a place where others cannot get to it. An overdose of acetaminophen can damage your liver or cause . Call your doctor at once if you have pain in your upper stomach, loss of appetite, dark urine, or jaundice (yellowing of your skin or eyes). Taking opioid medicine during may cause life-threatening withdrawal symptoms in the . Fatal side effects can occur if you use opioid medicine with alcohol, or with other drugs that cause drowsiness or slow your breathing. Stop taking this medicine and call your doctor right away if you have skin redness or a rash that spreads and causes blistering and peeling. What is acetaminophen and hydrocodone? Hydrocodone is an opioid pain medication, sometimes called a narcotic. Acetaminophen is a less potent pain reliever that increases the effects of hydrocodone. Acetaminophen and hydrocodone is a combination medicine used to relieve moderate to severe pain. Acetaminophen and hydrocodone may also be used for purposes not listed in this medication guide. What should I discuss with my healthcare provider before taking acetaminophen and hydrocodone? You should not use this medicine if you are allergic to acetaminophen or hydrocodone, or if you have: ?? severe asthma or breathing problems; or ?? a blockage in your stomach or intestines. Tell your doctor if you have ever had: ?? liver disease; ?? a drug or alcohol addiction; ?? kidney disease; ?? a head injury or seizures; ?? urination problems; or ?? problems with your thyroid, pancreas, or gallbladder. If you use opioid medicine while you are , your baby could become dependent on the drug. This can cause life-threatening withdrawal symptoms in the baby after it is born. Babies born dependent on opioids may need medical treatment for several weeks. Do not breast-feed. This medicine can pass into breast milk and cause drowsiness, breathing problems, or in a nursing baby. How should I take acetaminophen and hydrocodone? Follow all directions on your prescription label. Never take this medicine in larger amounts, or for longer than prescribed. An overdose can damage your liver or cause . Tell your doctor if the medicine seems to stop working as well in relieving your pain. Always check your bottle to make sure you have received the correct pills (same brand and type) of medicine prescribed by your doctor. Never share this medicine with another person, especially someone with a history of drug abuse or addiction. MISUSE CAN CAUSE ADDICTION, OVERDOSE, OR . Keep the medicine in a place where others cannot get to it. Selling or giving away acetaminophen and hydrocodone is against the law. Measure liquid medicine carefully. Use the dosing syringe provided, or use a medicine dose-measuring device (not a kitchen spoon). If you need surgery or medical tests, tell the doctor ahead of time that you are using this medicine. You should not stop using this medicine suddenly. Follow your doctor's instructions about tapering your dose. Store at room temperature away from moisture and heat. Keep track of your medicine. You should be aware if anyone is using it improperly or without a prescription. Do not keep leftover opioid medication. Just one dose can cause in someone using this medicine accidentally or improperly. Ask your pharmacist where to locate a drug take-back disposal program. If there is no take-back program, flush the unused medicine down the toilet. What happens if I miss a dose? Since this medicine is used for pain, you are not likely to miss a dose. Skip any missed dose if it is almost time for your next dose. Do not use two doses at one time. What happens if I overdose? Seek emergency medical attention or call the Poison Help line at . An overdose of acetaminophen and hydrocodone can be fatal. The first signs of an acetaminophen overdose include loss of appetite, nausea, vomiting, stomach pain, sweating, and confusion or weakness. Later symptoms may include pain in your upper stomach, dark urine, and yellowing of your skin or the whites of your eyes. Overdose can also cause severe muscle weakness, pinpoint pupils, very slow breathing, extreme drowsiness, or coma. What should I avoid while taking acetaminophen and hydrocodone? Avoid driving or operating machinery until you know how this medicine will affect you. Dizziness or drowsiness can cause falls, accidents, or severe injuries. Do not drink alcohol. Dangerous side effects or could occur. Ask a doctor or pharmacist before using any other medicine that may contain acetaminophen (sometimes abbreviated as APAP). Taking certain medications together can lead to a fatal overdose. What are the possible side effects of acetaminophen and hydrocodone? Get emergency medical help if you have signs of an allergic reaction: hives; difficulty breathing; swelling of your face, lips, tongue, or throat. Opioid medicine can slow or stop your breathing, and may occur. A person caring for you should seek emergency medical attention if you have slow breathing with long pauses, blue colored lips, or if you are hard to wake up. In rare cases, acetaminophen may cause a severe skin reaction that can be fatal. This could occur even if you have taken acetaminophen in the past and had no reaction. Stop taking this medicine and call your doctor right away if you have skin redness or a rash that spreads and causes blistering and peeling. Call your doctor at once if you have: ?? noisy breathing, sighing, shallow breathing; ?? a light-headed feeling, like you might pass out; ?? liver problems--nausea, upper stomach pain, tiredness, loss of appetite, dark urine, pedro-colored stools, jaundice (yellowing of the skin or eyes); or ?? low cortisol levels-- nausea, vomiting, loss of appetite, dizziness, worsening tiredness or weakness. Seek medical attention right away if you have symptoms of serotonin syndrome, such as: agitation, hallucinations, fever, sweating, shivering, fast heart rate, muscle stiffness, twitching, loss of coordination, nausea, vomiting, or diarrhea. Serious side effects may be more likely in older adults and those who are overweight, malnourished, or debilitated. Long-term use of opioid medication may affect fertility (ability to have children) in men or women. It is not known whether opioid effects on fertility are permanent. Common side effects include: ?? dizziness, drowsiness, feeling tired; ?? nausea, vomiting, stomach pain; ?? constipation; or ?? headache. This is not a complete list of side effects and others may occur. Call your doctor for medical advice about side effects. You may report side effects to FDA at 2-944-MHS-3819. What other drugs will affect acetaminophen and hydrocodone? You may have breathing problems or withdrawal symptoms if you start or stop taking certain other medicines. Tell your doctor if you also use an antibiotic, antifungal medication, heart or blood pressure medication, seizure medication, or medicine to treat HIV or hepatitis C. Opioid medication can interact with many other drugs and cause dangerous side effects or . Be sure your doctor knows if you also use: ?? cold or allergy medicines, bronchodilator asthma/COPD medication, or a diuretic ('water pill'); ?? medicines for motion sickness, irritable bowel syndrome, or overactive bladder; ?? other narcotic medications--opioid pain medicine or prescription cough medicine; ?? a sedative like Valium--diazepam, alprazolam, lorazepam, Xanax, Klonopin, Versed, and others; ?? drugs that make you sleepy or slow your breathing--a sleeping pill, muscle relaxer, medicine to treat mood disorders or mental illness; ?? drugs that affect serotonin levels in your body--a stimulant, or medicine for depression, Parkinson's disease, migraine headaches, serious infections, or nausea and vomiting. This list is not complete. Other drugs may affect acetaminophen and hydrocodone, including prescription and kuna-sku-qeovbam medicines, vitamins, and herbal products. Not all possible interactions are listed here. Where can I get more information? Your doctor or pharmacist can provide more information about acetaminophen and hydrocodone. Remember, keep this and all other medicines out of the reach of children, never share your medicines with others, and use this medication only for the indication prescribed. Every effort has been made to ensure that the information provided by [employer]') is accurate, up-to-date, and complete, but no guarantee is made to that effect. Drug information contained herein may be time sensitive. [employer] information has been compiled for use by healthcare practitioners and consumers in the [place] and therefore [employer] does not warrant that uses outside of the [place] are appropriate, unless specifically indicated otherwise. [employer]s drug information does not endorse drugs, diagnose patients or recommend therapy. [employer]s drug information is an informational resource designed to assist licensed healthcare practitioners in caring for their patients and/or to serve consumers viewing this service as a supplement to, and not a substitute for, the expertise, skill, knowledge and judgment of healthcare practitioners. The absence of a warning for a given drug or drug combination in no way should be construed to indicate that the drug or drug combination is safe, effective or appropriate for any given patient. [employer] does not assume any responsibility for any aspect of healthcare administered with the aid of information [facility] provides. The information contained herein is not intended to cover all possible uses, directions, precautions, warnings, drug interactions, allergic reactions, or adverse effects. If you have questions about the drugs you are taking, check with your doctor, nurse or pharmacist. Copyright 9600-9903 [employer] Version: 15.02. Revision Date: 07/16/2018. Emergency Awareness and Preventative Care STROKE is an EMERGENCY Every Minute Counts Act FAST and Check for these signs: FACE Does the face look uneven? ARM Does one arm drift down? SPEECH Does their speech sound strange? TIME Call at any sign of stroke Stroke Risk Factors Atrial Fibrillation (irregular heartbeat) Diabetes Family history of stroke Heart Disease Heavy alcohol use High Blood Pressure High Cholesterol Physical inactivity and obesity Smoking Cigarette Smoking The facts are clear, cigarette smoking will shorten your life. Smoking can cause many illnesses along the way. As a healthcare provider, we recommend that you stop smoking. Assistance with quitting is available by contacting 8-512-KYDOHemoteqNOW. This is a free resource providing counseling, support, and referral. Or you may contact your personal physician. National Suicide Prevention Lifeline: The National Suicide Prevention Lifeline is a national network of local crisis centers that provides free and confidential emotional support to people in suicidal crisis or emotional distress 24 hours a day, 7 days a week. Don't Wait! Stop a Heart Attack Before it Starts What is a heart attack? A heart attack is damage or to a part of the heart from severely decreased or lack of blood flow to the heart. Over time, arteries can become narrow from the buildup of fat and cholesterol, which is called plaque. The plaque can rupture causing a blood clot to form. When the blood clot forms, the artery can become severely narrowed or completely blocked, causing a heart attack. Heart attack is the leading cause of in the [place]. 85% of muscle damage occurs within the first 2 hours. Delay in the recognition of heart attack symptoms increases the chances of . Know the early symptoms of a heart attack: Nausea Feeling of fullness in chest Jaw Pain Pain that travels down one or both arms Fatigue/being tired Anxiety Back Pain Chest pressure, squeezing, or discomfort Shortness of breath Sweating, or a cold sweat Feeling of impending doom There are unusual signs of a heart attack, too! Women, the elderly, and diabetics may present with atypical symptoms: Fainting/dizziness Weakness Confusion Risk Factors for a Heart Attack Some heart disease risk factors, such as age and family history, cannot be changed. Others, like smoking and lack of exercise, can be changed. Smoking High Cholesterol High Blood Pressure Family History Obesity Age Gender (Males are at higher risk) Lack of Exercise Diabetes Diet Stress Excessive Alcohol Intake If you or someone you know is experiencing the signs and symptoms of a heart attack, DON???T DELAY. Call immediately and seek help. If someone collapses, perform CPR! Do not attempt to drive if you are having symptoms of heart attack. Hands-Only CPR Why Hands-Only CPR? Hands-Only CPR has been shown to be as effective as conventional CPR for cardiac arrests that occur outside of a hospital. Survival depends on immediately receiving CPR from someone nearby. How do you perform Hands-Only CPR? There are two easy steps: Call if you see a teen or adult collapse Push hard and fast in the center of the chest at a beat of 100 beats per minute. Save a life! 4 WAYS TO GET AHEAD OF SEPSIS SEPSIS is a MEDICAL EMERGENCY. Time matters! Infections put you and your family at risk for a life-threatening condition called sepsis. Sepsis is the body's extreme response to an infection. It is life-threatening, and without timely treatment, sepsis can rapidly lead to tissue damage, organ failure, and . Sepsis happens when an infection you already have-in your skin, lungs, urinary tract or somewhere else-triggers a chain reaction throughout your body. 1 PREVENT INFECTIONS Take good care of chronic conditions. Talk to your doctor about getting the recommended vaccines. 2 PRACTICE GOOD HYGIENE Wash your hands frequently. Keep cuts or open sores clean and covered until they are healed. 3 KNOW THE SYMPTOMS Confusion or disorientation Shortness of breath High heart rate Fever, shivering, or feeling very cold Extreme pain or discomfort Clammy or sweaty skin 4 ACT FAST Get medical care IMMEDIATELY if you suspect sepsis or if you have an infection that is not getting better or is getting worse. To learn more about sepsis and how to prevent infections, visit www.cdc.gov/sepsis. Test Results Laboratory or Other Results This Visit (last charted value for your 04/05/2019 visit) Hematology 04/09/19 05:24:00 Hct: 32.0 % -- Normal range between ( 34.1 and 44.9 ) Hgb: 10.2 Gram/dL -- Normal range between ( 11.2 and 15.7 ) 04/06/19 03:51:00 WBC: 8.6 K/uL -- Normal range between ( 3.9 and 10.0 ) RBC: 3.14 Million/uL -- Normal range between ( 3.93 and 5.22 ) Platelet Count: 187 K/uL -- Normal range between ( 163 and 369 ) MCH: 33.4 pg -- Normal range between ( 25.6 and 32.2 ) MCHC: 31.6 Gram/dL -- Normal range between ( 32.3 and 36.5 ) MCV: 105.7 fL -- Normal range between ( 79.0 and 94.8 ) Slide Review: No Eos %: 2.0 % -- Normal range between ( 1.0 and 7.0 ) [place]ham #: 0.75 K/uL -- Normal range between ( 0.24 and 0.82 ) Eos #: 0.17 K/uL -- Normal range between ( 0.04 and 0.54 ) [place] %: 8.7 % -- Normal range between ( 4.7 and 12.5 ) Baso %: 0.6 % -- Normal range between ( 0.0 and 1.0 ) Baso #: 0.05 K/uL -- Normal range between ( 0.01 and 0.08 ) RDW: 15.5 % -- Normal range between ( 11.6 and 14.4 ) Neut %: 67.3 % -- Normal range between ( 34.0 and 71.0 ) Neut #: 5.81 K/uL -- Normal range between ( 1.56 and 6.13 ) Lymph %: 20.9 % -- Normal range between ( 19.3 and 53.0 ) Lymph #: 1.80 K/uL -- Normal range between ( 1.18 and 3.74 ) MPV: 9.5 fL -- Normal range between ( 9.4 and 12.4 ) IG#: 0 x10(3)/uL IG%: 0 % -- Normal range between ( 0 and 1 ) Urinalysis 04/05/19 13:50:00 Ur RBC: 0-2 /HPF Urine Nitrite: Negative Urine Leukocyte Esterase: Trace Ur Epithelial Cells: 2-5 /HPF Urine Appearance: Clear Urine Glucose Dipstick: Negative Urine Blood Dipstick: Negative Urine Type: U Cath Urine Urobilinogen Dipstick: 1.0 EU/dL -- Normal range between ( 0.2 and 1.0 ) Urine Protein Dipstick: Negative Ur Bacteria: 1+ Urine Color: DK YELLOW Ur WBC: 5-10 /HPF Urine Ketones Dipstick: Negative Urine pH Dipstick: 7.0 -- Normal range between ( 6.0 and 8.0 ) Urine Bilirubin Dipstick: Small Urine Specific [place]: 1.020 -- Normal range between ( 1.005 and 1.030 ) General Chemistry 04/09/19 05:24:00 Creatinine Level: 0.42 mg/dL -- Normal range between ( 0.55 and 1.02 ) Sodium Level: 137 mmol/L -- Normal range between ( 136 and 146 ) Potassium Level: 3.6 mmol/L -- Normal range between ( 3.5 and 5.1 ) Chloride Level: 100 mmol/L -- Normal range between ( 102 and 112 ) Carbon Dioxide Level: 30 mmol/L -- Normal range between ( 21 and 32 ) Anion Gap: 11 -- Normal range between ( 9 and 20 ) Bilirubin Total: 0.7 mg/dL -- Normal range between ( 0.2 and 1.3 ) A/G Ratio: 1.0 -- Normal range between ( 1.1 and 2.5 ) ALT: 23 Units/Liter -- Normal range between ( 12 and 78 ) AST: 39 Units/Liter -- Normal range between ( 5 and 37 ) Globulin: 3.0 Gram/dL -- Normal range between ( 1.5 and 4.5 ) Alk Phos: 209 Units/Liter -- Normal range between ( 27 and 136 ) Bun/Creatinine: 14.3 -- Normal range between ( 8.0 and 20.0 ) Calcium Level: 8.5 mg/dL -- Normal range between ( 8.5 and 10.1 ) eGFR : >60 mL/min/1.73m2 eGFR NonAfrican: >60 mL/min/1.73m2 Glucose Level: 101 mg/dL -- Normal range between ( 74 and 106 ) Blood Urea Nitrogen: 6 mg/dL -- Normal range between ( 7 and 22 ) Protein Total: 5.9 Gram/dL -- Normal range between ( 6.4 and 8.2 ) Albumin Level: 2.9 Gram/dL -- Normal range between ( 3.4 and 5.0 ) Coagulation 04/05/19 13:26:00 INR: 1.1 -- Normal range between ( 0.9 and 1.1 ) PTT: <22.0 Second(s) -- Normal range between ( 24.5 and 30.1 ) PT: 10.9 Second(s) -- Normal range between ( 9.6 and 11.5 ) Computed Tomography 04/05/19 17:11:00 CT Knee RT WO: CT Knee RT WO Diagnostic Radiology 04/06/19 09:00:00 CR Fluoro in OR: CR Fluoro in OR 04/05/19 14:20:00 CR Chest 1 Vw Portable: CR Chest 1 Vw Portable CR Femur 2 Vws RT: CR Femur 2 Vws RT CR Humerus Min 2 Vws RT: CR Humerus Min 2 Vws RT CR Knee 3 Vws RT: CR Knee 3 Vws RT Patient Name:TIFFANIE STANLEY I have received and understand this information and was given the opportunity to ask questions. Patient/Plane Runner Name: Patient/Plane Runner Signature: Relationship to Patient: Clinician/Hospital Plane Runner Signature: Date: documented in this encounter Plan of Treatment Not on file documented as of this encounter Visit Diagnoses Not on filedocumented in this encounter
--- OUTSIDE RECORDS SUMMARY | 2025-02-18 09:32 | XMS_ITS | Encounter Summary ---
Author Organization [employer] Address [address] [place] [address] Care Team Providers Care Gun Stocker Name Role Phone Unavailable Primary Care Provider Unavailabl e Encounter Details Date Type Department Care Team (Late st Contact Info) Description 04/12/2019 Transcribed Document [facility] [place] Family Medicine [address] [place] [address] ProviderLeah MD Count includes the [facility] [address] Social History Tobacco Use Types Packs/Day Years Used Date Smoking Tobacco: Never Assessed Comments Unknown Sex and Gender Information Value Date Recorded Sex Assigned at Not on file Legal Sex Female 6:39 PM CDT Gender Identity Not on file Sexual Orientation Not on file documented as of this encounter Miscellaneous Notes * Cerner Conversion Note - Leah ProviderMD - 04/12/2019 11:20 AM CDT UM Authorization Entered On: 04/12/2019 11:20 EDT Performed On: 04/12/2019 11:20 EDT by MARITZA HERNDON RN-Utilization Review Primary Insurance Authorization Authorization and Policy Numbers : Insurance 1 Health Plan: [facility] MEDICARE ADVANTAGE Policy Number: [id number] Authorization Number: [id number] Insurance 2 Health Plan: [employer] Policy Number: [id number] Authorization Number: Insurance Primary Name : [facility] Medicare Advantage Authorization Status-Primary : Awaiting callback Reference Number-Primary : [id number] pended Authorized Service Begin Date-Primary : 04/05/2019 EDT Authorization Comments-Primary : [facility] d/c date and summary attached to website -- auth still pending Historical Authorization Comments-Primary : Comment 1: Uploaded clinicals to [facility] Medicare via [employer]. (ELIZABETH CASSIDY RN-Utilization Review 04/06/2019 09:10) MARITZA HERNDON RN-Utilization Review - 04/12/2019 11:20 EDT documented in this encounter Plan of Treatment Not on file documented as of this encounter Visit Diagnoses Not on filedocumented in this encounter
--- OUTSIDE RECORDS SUMMARY | 2025-02-18 09:32 | XMS_ITS | Encounter Summary ---
Author Organization [employer] Address [address] [place] [address] Care Team Providers Care Academic Hospitalist Name Role Phone Unavailable Primary Care Provider Unavailabl e Encounter Details Date Type Department Care Team (Late st Contact Info) Description 04/08/2019 Transcribed Document [facility] [place] Family Medicine [address] [place] [address] ProviderLeah MD [address] [place] [address] Social History Tobacco Use Types Packs/Day Years Used Date Smoking Tobacco: Never Assessed Comments Unknown Sex and Gender Information Value Date Recorded Sex Assigned at Not on file Legal Sex Female 6:39 PM CDT Gender Identity Not on file Sexual Orientation Not on file documented as of this encounter Miscellaneous Notes * Cerner Conversion Note - Historical ProviderMD - 04/08/2019 2:00 AM CDT Cable Tower Operator Details Entered On: 04/08/2019 2:00 EDT Performed On: 04/08/2019 2:00 EDT by Temitope Montelongo, Shelley Order Details Transport Mode Order Detail : Wheelchair Isolation Precautions Order Detail : Standard Precautions Order Detail : 0 IV Order Detail : 1 Oxygen Order Detail : 1 Nurse Collect Order Detail : 0 Lift/Transfer : Moderate assist Central Line Order Detail : No Room Service : Not Appropriate Arterial Line : No Temitope Montelongo, Shelley - 04/08/2019 2:00 EDT documented in this encounter Plan of Treatment Not on file documented as of this encounter Visit Diagnoses Not on filedocumented in this encounter
--- OUTSIDE RECORDS SUMMARY | 2025-02-18 09:32 | XMS_ITS | Encounter Summary ---
Author Organization [employer] Address [address] [place] [address] Care Team Providers Care Earth Science Teacher Name Role Phone Unavailable Primary Care Provider Unavailabl e Encounter Details Date Type Department Care Team (Late st Contact Info) Description 04/15/2019 Transcribed Document [facility] [place] [address] [place] [address] ProviderLeah MD [facility] [place], [place] [address] Social History Tobacco Use Types Packs/Day Years Used Date Smoking Tobacco: Never Assessed Comments Unknown Sex and Gender Information Value Date Recorded Sex Assigned at Not on file Legal Sex Female 6:39 PM CDT Gender Identity Not on file Sexual Orientation Not on file documented as of this encounter Miscellaneous Notes * Cerner Conversion Note - Leah ProviderMD - 04/15/2019 12:28 PM CDT UM Authorization Entered On: 04/15/2019 12:29 EDT Performed On: 04/15/2019 12:28 EDT by MARITZA HERNDON RN-Utilization Review Primary Insurance Authorization Authorization and Policy Numbers : Insurance 1 Health Plan: [facility] MEDICARE ADVANTAGE Policy Number: [id number] Authorization Number: [id number] Insurance 2 Health Plan: [employer] Policy Number: [id number] Authorization Number: Insurance Primary Name : [facility] Medicare Advantage Authorization Status-Primary : Admit approved Reference Number-Primary : [id number] Authorization Number-Primary : [id number] Number of Days Authorized-Primary : 6 Authorized Service Begin Date-Primary : 04/05/2019 EDT Authorized Service End Date-Primary : 04/10/2019 EDT Authorization Comments-Primary : [facility] approved per fax back Historical Authorization Comments-Primary : Comment 1: [facility] d/c date and summary attached to website -- auth still pending (HERNDON, MARITZA, RN-Utilization Review 04/12/2019 11:20) Comment 2: Uploaded clinicals to [facility] Medicare via [employer]. (ELIZABETH CASSIDY RN-Utilization Review 04/06/2019 09:10) MARITZA HERNDON RN-Utilization Review - 04/15/2019 12:28 EDT documented in this encounter Plan of Treatment Not on file documented as of this encounter Visit Diagnoses Not on filedocumented in this encounter
--- OUTSIDE RECORDS SUMMARY | 2025-02-18 09:32 | XMS_ITS | Encounter Summary ---
Author Organization [employer] Address [address] [place] [address] Care Team Providers Care Letter Of Credit Clerk Name Role Phone Unavailable Primary Care Provider Unavailabl e Encounter Details Date Type Department Care Team (Late st Contact Info) Description 04/10/2019 Transcribed Document [facility] [place] Family Medicine [address] [place] [address] ProviderLeah MD [facility] [place] [address] Social History Tobacco Use Types Packs/Day Years Used Date Smoking Tobacco: Never Assessed Comments Unknown Sex and Gender Information Value Date Recorded Sex Assigned at Not on file Legal Sex Female 6:39 PM CDT Gender Identity Not on file Sexual Orientation Not on file documented as of this encounter Miscellaneous Notes * Cerner Conversion Note - Historical ProviderMD - 04/10/2019 2:51 PM CDT NATHAN Entered On: 04/10/2019 14:51 EDT Performed On: 04/10/2019 14:51 EDT by EMILY STEWART MD-INT NATHAN Indication of use for OOCS : Acute Illness OOCS Misuse Suspected : Other Was NATHAN queried : Other Patient Advised to seek OOCS Treatment : Other Treatment to Include Limited Supply of OOCS : Other NATHAN Result : Other NATHAN Other Notes : As per referring facility medical records Patient cancelled on OOCS : Other NATHAN : . EMILY STEWART MD-INT - 04/10/2019 14:51 EDT documented in this encounter Plan of Treatment Not on file documented as of this encounter Visit Diagnoses Not on filedocumented in this encounter
--- OUTSIDE RECORDS SUMMARY | 2025-02-18 09:32 | XMS_ITS | Encounter Summary ---
Author Organization [employer] Address [address] [place] [address] Care Team Providers Care Machine Made Shoe Unit Worker Name Role Phone Unavailable Primary Care Provider Unavailabl e Encounter Details Date Type Department Care Team (Late st Contact Info) Description 04/10/2019 Transcribed Document [facility] Family Medicine [address] [place], [place] [id number] ProviderLeah MD [address] [place] [address] Social History Tobacco Use Types Packs/Day Years Used Date Smoking Tobacco: Never Assessed Comments Unknown Sex and Gender Information Value Date Recorded Sex Assigned at Not on file Legal Sex Female 6:39 PM CDT Gender Identity Not on file Sexual Orientation Not on file documented as of this encounter Miscellaneous Notes * Cerner Conversion Note - Historical ProviderMD - 04/10/2019 1:58 PM CDT Nursing Discharge Summary Entered On: 04/10/2019 14:00 EDT Performed On: 04/10/2019 13:58 EDT by ETHAN BALLESTEROS RN Discharge Documentation Patient Disposition, General : Discharge Discharge To : Rehabilitation unit/facility Mode Of Departure, General Discharge : Ambulance/BLS Accompanied By, Discharge : customer specialist IV Discontinued : Yes Prescriptions Given to Patient : Yes Discharge Instructions Reviewed With, Opportunity For Questions Given : Patient Patient Education Completed : Yes Number of Prescriptions Given : 1 Teaching Method : Explanation, Printed materials Teaching Evaluation : Verbalizes understanding Discharge Summary Sent to : [facility] ETHAN BALLESTEROS RN - 04/10/2019 13:58 EDT documented in this encounter Plan of Treatment Not on file documented as of this encounter Visit Diagnoses Not on filedocumented in this encounter
--- OUTSIDE RECORDS SUMMARY | 2025-02-18 09:32 | XMS_ITS | Encounter Summary ---
Author Organization [employer] Address [address] [place] [address] Care Team Providers Care Vocational Rehabilitation Supervisor Name Role Phone Unavailable Primary Care Provider Unavailabl e Encounter Details Date Type Department Care Team (Late st Contact Info) Description 04/05/2019 Transcribed Document [facility] [place] Family Medicine [address] [place] [address] [facility] [place] [address] Social History Tobacco Use Types Packs/Day Years Used Date Smoking Tobacco: Never Assessed Comments Unknown Sex and Gender Information Value Date Recorded Sex Assigned at Not on file Legal Sex Female 6:39 PM CDT Gender Identity Not on file Sexual Orientation Not on file documented as of this encounter Miscellaneous Notes * Cerner Conversion Note - Historical ProviderMD - 04/05/2019 3:14 PM CDT Pain Assessment Entered On: 04/05/2019 15:56 EDT Performed On: 04/05/2019 15:54 EDT by AROLDO TOSCANO Rn Intervention Information: morphine Performed by AROLDO TOSCANO Rn on 04/05/2019 15:24:00 EDT morphine,4mg IV Push,Right Lower Forearm Pain Assessment Pain Assessment : Follow-up assessment Pain Scale Used : 0-10 Scale AROLDO TOSCANO Rn - 04/05/2019 15:56 EDT Pain Scale Intensity : 4 AROLDO TOSCANO Rn - 04/05/2019 15:56 EDT Image 4 - Images currently included in the form version of this document have not been included in the text rendition version of the form. documented in this encounter Plan of Treatment Not on file documented as of this encounter Visit Diagnoses Not on filedocumented in this encounter
--- OUTSIDE RECORDS SUMMARY | 2025-02-18 09:32 | XMS_ITS | Encounter Summary ---
Author Organization [employer] Address [address] [place] [address] Care Team Providers Care Miller Distillery Name Role Phone Unavailable Primary Care Provider Unavailabl e Encounter Details Date Type Department Care Team (Late st Contact Info) Description 04/05/2019 Transcribed Document [facility] Family Medicine [facility] [place] [address] ProviderLeah MD [address] [place] [id number] Social History Tobacco Use Types Packs/Day Years Used Date Smoking Tobacco: Never Assessed Comments Unknown Sex and Gender Information Value Date Recorded Sex Assigned at Not on file Legal Sex Female 6:39 PM CDT Gender Identity Not on file Sexual Orientation Not on file documented as of this encounter Miscellaneous Notes * Cerner Conversion Note - Leah ProviderMD - 04/05/2019 6:49 PM CDT Patient: CAMACHO DENNISON Age: 58 years Sex: Female : 1960 Associated Diagnoses: Right knee pain and swelling; Right shoulder pain and swelling; Right knee effusion; Fall; Arnold-Chiari malformation; Syringomyelia; Left sided hemiparesis; Hypertension; Hypercholesterolemia; Hypothyroid; Mitral valve prolapse; On home oxygen; Bilateral lower extremities Lymphedema; Dizziness Author: EMILY STEWART MD-INT 58 years old white female with a history of Arnold Chiari malformation, 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 Dixon at [facility] and including decompression laminectomy in 2002, after which patient continued to deteriorate, who had a fall 4 days ago at her parent's home while she was trying to pick something off the floor and when she stood up she lost her balance and fell on her right knee cap and and was taken to local hospital at [facility] where x-ray revealed right distal femur fracture and was discharged home to be followed as outpatient with his orthopedist. Last night she noticed that she can not move her right upper extremity so she was brought to [facility] via EMS where workup revealed a right distal femur fracture and a right proximal humerus fracture. Currently patient is at her parent's home and she rolls in a rolling chair but she walks with a walker at times. She denies any head trauma, loss of consciousness, headache, seizure activity, syncopal or presyncopal symptoms. Postoperative Information Patient had surgery today and is recovering well. patient is awake, alert, cooperative, responsive, and is under no acute distress. Currently Patient is on pain medication as recommended by Patient's pain is well controlled. Patient is on DVT prophylaxis and also on scheduled bowel regimen. Urine out-put is adequate. PT/OT onboard. Review of Systems Constitutional: No fever, No chills. Eye: No visual disturbances. Ear/Nose/Mouth/Throat: No nasal congestion, No sore throat. Respiratory: No shortness of breath, No cough. Cardiovascular: No chest pain, No tachycardia. Gastrointestinal: No nausea, No vomiting, No abdominal pain. Genitourinary: No change in urine stream. Hematology/Lymphatics: No bleeding tendency. Endocrine: No polyuria, No cold intolerance, No heat intolerance. Immunologic: Negative. Musculoskeletal: Right arm pain and swelling, right knee pain and swelling. Integumentary: Negative. Neurologic: No confusion, No numbness, No tingling, No headache. Psychiatric: No anxiety, No depression. All other systems are negative Health Status Allergies: Allergies (1) Active Reaction No Known Medication Allergies None Documented Current medications: Home Medications (10) Active Abilify , Oral, Daily acetaminophen-hydrocodone 300 mg-7.5 mg oral tablet , Oral, Q6H atorvastatin , Oral, Daily carvedilol , Oral Effexor XR , Oral, Daily K-Dur 10 , Oral, BID Lasix , Daily Lomotil , Oral, QID spironolactone , Oral Synthroid , Oral, Daily , Medications (28) Active Scheduled: (1) docusate sodium 100 mg cap 100 mg 1 Cap, Oral, BID Continuous: (1) NaCl 0.45% 1,000 mL 1,000 mL, IntraVENous, 100 mL/Hr PRN: (26) acetaminophen 325 mg tab 650 mg 2 Tab, Oral, Q4H acetaminophen/HYDROcodone 325/5 mg tab 1 Tab, Oral, Q4H acetaminophen/HYDROcodone 325/5 mg tab 2 Tab, Oral, Q4H ALPRAZolam 0.25 mg tab 0.25 mg 1 Tab, Oral, Q6H bisacodyl 10 mg supp 10 mg 1 Supp, Rectal, BID calcium gluconate 1 Gram 10 mL, IV Piggyback, Daily calcium gluconate 2 Gram, IV Piggyback, Daily calcium gluconate 2 Gram, IV Piggyback, Q12H cloNIDine 0.1 mg tab 0.1 mg 1 Tab, Oral, Q4H HYDROmorphone 0.5 mg 0.5 mL, IV Push, Q2H magnesium hydroxide 8% liq 30 mL 30 mL, Oral, Daily magnesium sulfate 2 Gram, IV Piggyback, Daily magnesium sulfate 2 Gram, IV Piggyback, Q2H metoclopramide 10 mg/2 mL inj 5 mg 1 mL, IV Push, Q6H ondansetron 4 mg/2 mL inj 4 mg 2 mL, IV Push, Q4H ondansetron 4 mg/2 mL inj 4 mg 2 mL, IV Push, Q4H potassium chloride 20 mEq, Oral, Q2H potassium chloride 60 mEq, Oral, Q2H potassium chloride 10 mEq 50 mL, IV Piggyback, Q1H potassium chloride 40 mEq/30 mL liq 20 mEq 15 mL, Feeding Tube, Q2H potassium chloride 40 mEq/30 mL liq 60 mEq 45 mL, Feeding Tube, Q2H scopolamine 1.5 mg/72 hr patch 1 Patch, TransDermal, Q3Days sodium phosphate 15 mMole 5 mL, IV Piggyback, Daily sodium phosphate 15 mMole 5 mL, IV Piggyback, Q6H temazepam 15 mg cap 15 mg 1 Cap, Oral, At Bedtime traZODone 50 mg tab 50 mg 1 Tab, Oral, At Bedtime Problem list: Active Problems (5) Arnold-Chiari malformation CHF (congestive heart failure) High cholesterol Hypertension Hypothyroid Histories Family History: Family history significant for HTN and mitral valve prolapse on her father Procedure history: No active procedure history items have been selected or recorded. Social History Patient is but has no children she quit smoking 15 years ago and she drinks alcohol sometimes. Physical Examination VS/Measurements Vital Signs/Vital Measures 04/05/2019 12:33 EDT Systolic Blood Pressure 137 mmHg Diastolic Blood Pressure 56 mmHg LOW Temperature Source Oral Temperature Mode Fahrenheit Temperature, Fahrenheit 99.0 Deg F Clinical Temperature, C 37.2 Deg C Peripheral Pulse Rate 78 bpm Respiratory Rate 20 Breaths/Min Oxygen Saturation 90 % LOW Oxygen Therapy Mode Room air Vital Measurements Comment PLACED ON 2LNC General: Alert and oriented, No acute distress. Eye: Pupils are equal, round and reactive to light, Normal conjunctiva, Vision unchanged. HENT: Normocephalic, Tympanic membranes are clear, Normal hearing, Oral mucosa is moist, No pharyngeal erythema, No sinus tenderness. Neck: Supple, Non-tender, No carotid bruit, No jugular venous distention, No lymphadenopathy, No thyromegaly. Respiratory: Lungs are clear to auscultation, Respirations are non-labored, Breath sounds are equal, Symmetrical chest wall expansion, No chest wall tenderness. Cardiovascular: Normal rate, Regular rhythm, No murmur, No gallop, Good pulses equal in all extremities, Normal peripheral perfusion, No edema. Gastrointestinal: Soft, Non-tender, Non-distended, Normal bowel sounds, No organomegaly. Genitourinary: No costovertebral angle tenderness, No inguinal tenderness, No urethral discharge, No lesions. Lymphatics: No lymphadenopathy neck, axilla, groin. Musculoskeletal: A right proximal upper arm pain and swelling, right knee pain and swelling tender with motion. Integumentary: Warm, [place], Intact, No pallor, No rash, Has dry skin and dermatitis on her right upper extremity. Neurologic: Alert, Oriented, Normal sensory, Normal motor function, No focal deficits, Cranial Nerves II-XII are grossly intact, Normal deep tendon reflexes. Psychiatric: Cooperative, Appropriate mood & affect, Normal judgment, Non-suicidal. Review / Management Results review: Lab results 04/05/2019 13:50 EDT Urine Type U Cath Urine Color DK YELLOW Urine Appearance Clear Urine Specific [place] 1.020 Urine pH Dipstick 7.0 Urine Leukocyte Esterase Trace Urine Nitrite Negative Urine Protein Dipstick Negative Urine Glucose Dipstick Negative Urine Ketones Dipstick Negative Urine Urobilinogen Dipstick 1.0 EU/dL Urine Bilirubin Dipstick Small Urine Blood Dipstick Negative Ur RBC 0-2 /HPF Ur WBC 5-10 /HPF Ur Bacteria 1+ Ur Epithelial Cells 2-5 /HPF 04/05/2019 13:26 EDT Sodium Level 135 mmol/L LOW Potassium Level 4.1 mmol/L Chloride Level 101 mmol/L LOW Carbon Dioxide Level 29 mmol/L Anion Gap 9 Glucose Level 89 mg/dL Blood Urea Nitrogen 7 mg/dL CREATININE 0.60 mg/dL eGFR >60 mL/min/1.73m2 eGFR NonAfrican >60 mL/min/1.73m2 Bun/Creatinine 11.7 Calcium Level 9.4 mg/dL Protein Total 7.4 Gram/dL Albumin Level 3.5 Gram/dL Globulin 3.9 Gram/dL A/G Ratio 0.9 LOW Bilirubin Total 0.9 mg/dL Alk Phos 199 Units/Liter HI AST 43 Units/Liter HI ALT 31 Units/Liter WBC 8.8 K/uL RBC 3.47 Million/uL LOW Hgb 11.7 Gram/dL Hct 36.1 % MCV 104.0 fL HI MCH 33.7 pg HI MCHC 32.4 Gram/dL Platelet Count 185 K/uL MPV 9.6 fL RDW 15.8 % HI Neut % 74.9 % HI Neut # 6.56 K/uL HI Lymph % 15.0 % LOW Lymph # 1.31 K/uL [place] % 8.4 % [place] # 0.74 K/uL Eos % 0.9 % LOW Eos # 0.08 K/uL Baso % 0.2 % Baso # 0.02 K/uL Slide Review No IG# 0 x10(3)/uL IG% 1 % PT 10.9 Second(s) INR 1.1 PTT <22.0 Second(s) LOW . Radiology Results (Last 48 hours) [id number] -- 04/05/2019 16:34 CR Chest 1 Vw Portable (04/05/2019 14:20) Result: PORTABLE CHEST 04/05/2019 1:02 PM HISTORY: Fall..COMPARISON: None.FINDINGS: The heart is normal in size . No widening of themediastinum.. Mild bibasilar atelectasis. Lungs otherwise clear.. Thereis no pneumothorax . The osseous structures are unremarkable . IMPRESSION: No acute cardiopulmonary process . CR Femur 2 Vws RT (04/05/2019 14:20) Result: RIGHT FEMUR RADIOGRAPHS HISTORY: Pain after fall.FINDINGS: A three view exam demonstrates no acute fracture ordislocation. The joint spaces appear normal. No soft tissue abnormalityis seen. IMPRESSION: No acute fracture of the right femur. CR Humerus Min 2 Vws RT (04/05/2019 14:20) Result: RIGHT HUMERUS SERIESHISTORY: Right arm pain from a recent fall.COMPARISON: NoneFINDINGS: A 2 view exam demonstrates a transverse fracture through theproximal humeral metaphysis. There is an avulsion fragment laterallymeasuring 1.5 cm. No other fracture identified. IMPRESSION: Acute fracture as above. Images reviewed, interpreted, and dictated by Dr. Kishan Krishnamurthy.Transcribed by Ariella Cuellar (R). CR Knee 3 Vws RT (04/05/2019 14:20) Result: RIGHT KNEE SERIES.HISTORY: Right knee pain, recent fall.FINDINGS: 3 views show vertical lucency involving the distal femur.There may be extension into the intercondylar notch. Findings areconcerning for nondisplaced fracture. Recommend CT. A moderate jointeffusion is present. There are moderate degenerative changes.IMPRESSION: Suspect distal femur fracture. Recommend CT.Films reviewed, interpreted, and dictated by Dr. Luke.Transcribed by Chante Goodman PA-C.I have personally viewed, interpreted and dictated the examination. Ihave read and agree with the above final transcribed report. CT Knee RT WO (04/05/2019 17:11) Result: STUDY: CT right knee without contrastCLINICAL HISTORY: Trauma.COMPARISON: Plain film right knee earlier todayFINDINGS: Multiple contiguous transaxial slices through the right kneewere obtained with coronal and sagittal reformatted images. This studywas performed with techniques to keep radiation doses as low asreasonably achievable, (ALARA). Individualized dose reduction techniquesusing automated exposure control or adjustment of mA and/or kV accordingto the patient size were employed.Bones are demineralized. There is a complex oblique fracture through thelateral femoral condyle anteriorly and centrally and the medial femoralcondyle anteriorly and centrally, each extending posteriorly to theposterior margin of the distal femur to the intercondylar notch andposterior margin of the femur. Fracture line extends obliquely along thedistal femoral shaft superiorly. There is a moderate joint effusion.There is no dislocation or radiopaque foreign body. There istricompartmental degenerative narrowing with periarticularosteophytosis. There is diffuse muscular atrophy. No additional fractureis appreciated.IMPRESSION:1. Complex nondisplaced distal femur fracture with joint effusion2. Demineralization and degenerative changes Impression and Plan Diagnosis Right knee pain and swelling - Admitting, Medical. Right shoulder pain and swelling - Admitting, Medical. Right knee effusion - Admitting, Medical. Fall - Admitting, Medical. Arnold-Chiari malformation - Admitting, Medical. Syringomyelia - Admitting, Medical. Left sided hemiparesis - Admitting, Medical. Hypertension - Admitting, Medical. Hypercholesterolemia - Admitting, Medical. Hypothyroid - Admitting, Medical. Mitral valve prolapse - Admitting, Medical. On home oxygen - Admitting, Medical. Bilateral lower extremities Lymphedema - Admitting, Medical. Dizziness - Admitting, Medical. Course: Plan/ -Pain control -Hydration -DVT prophylaxis with SCUDs -Close monitoring blood pressure, blood glucose and renal function -Scheduled and when necessary nebs -Oxygen nasal cannula -For risk precautions -Sleep apnea precautions -Stress ulcer prophylaxis -Regular diet -Nothing by mouth after midnight -Continue on her current home medication . documented in this encounter Plan of Treatment Not on file documented as of this encounter Visit Diagnoses Not on filedocumented in this encounter
--- OUTSIDE RECORDS SUMMARY | 2025-02-18 09:32 | XMS_ITS | Encounter Summary ---
Author Organization [employer] Address [address] [place] [address] Care Team Providers Care Sybase Developer Name Role Phone Unavailable Primary Care Provider Unavailabl e Encounter Details Date Type Department Care Team (Late st Contact Info) Description 04/10/2019 Transcribed Document [facility] Family Medicine [address] [place] [address] ProviderLeah MD [facility] [place] [address] Social History Tobacco Use Types Packs/Day Years Used Date Smoking Tobacco: Never Assessed Comments Unknown Sex and Gender Information Value Date Recorded Sex Assigned at Not on file Legal Sex Female 6:39 PM CDT Gender Identity Not on file Sexual Orientation Not on file documented as of this encounter Miscellaneous Notes * Cerner Conversion Note - Historical ProviderMD - 04/10/2019 2:05 PM CDT Attempt to Treat, PT Entered On: 04/10/2019 14:06 EDT Performed On: 04/10/2019 14:05 EDT by Lauren Mendoza Letter Sorting Machine Operator Lead Attempt to Treat Unable to Treat Due To : Other: dc to rehab. Inability to Treat Comment : Pt discharging at 1500 today. Notification : RN notified therapy of dc. Lauren Mendoza Letter Sorting Machine Operator Lead - 04/10/2019 14:05 EDT documented in this encounter Plan of Treatment Not on file documented as of this encounter Visit Diagnoses Not on filedocumented in this encounter
--- OUTSIDE RECORDS SUMMARY | 2025-02-18 09:32 | XMS_ITS | Encounter Summary ---
Author Organization [employer] Address [address] [place] [address] Care Team Providers Care Dwarf Tree Grower Name Role Phone Unavailable Primary Care Provider Unavailabl e Encounter Details Date Type Department Care Team (Late st Contact Info) Description 04/07/2019 Transcribed Document [facility] Family Medicine [address] [place] [address] ProviderLeah MD [address] [place] [id number] Social History Tobacco Use Types Packs/Day Years Used Date Smoking Tobacco: Never Assessed Comments Unknown Sex and Gender Information Value Date Recorded Sex Assigned at Not on file Legal Sex Female 6:39 PM CDT Gender Identity Not on file Sexual Orientation Not on file documented as of this encounter Miscellaneous Notes * Cerner Conversion Note - Leah ProviderMD - 04/07/2019 4:47 PM CDT On Going Discharge Planning Entered On: 04/07/2019 16:48 EDT Performed On: 04/07/2019 16:47 EDT by WENDY CARABALLO RN-Medical TechnicianHome Service Consultant Progress Note Discharge Arrangements : Patient Post-Acute Information Patient Name: CAMACHO STANLEY Gender: Female : [birth year] Age: 58 Years No Post-Acute Placement(s) Listed No Post-Acute Service(s) Listed No [place] Referral(s) Listed Discharge Options Discussed with Patient : acid conditioning worker rehabilitation, Short term rehabilitation WENDY CARABALLO, RN-Medical Technician - 04/07/2019 16:47 EDT Narrative Progress Note Narrative Progress Note : REFERRAL TO [facility] WENDY CARABALLO, RN-Medical Technician - 04/07/2019 16:47 EDT Electronically signed by Zulma [facility] Conversion Natural Sciences Department Chair Cerner at 12/26/2022 1:06 PM CDT documented in this encounter Plan of Treatment Not on file documented as of this encounter Visit Diagnoses Not on filedocumented in this encounter
--- OUTSIDE RECORDS SUMMARY | 2025-02-18 09:32 | XMS_ITS | Encounter Summary ---
Author Organization [employer] Address [address] [place] [address] Care Team Providers Care Engineering Model Maker Name Role Phone Unavailable Primary Care Provider Unavailabl e Encounter Details Date Type Department Care Team (Late st Contact Info) Description 04/05/2019 Transcribed Document [facility] Family Medicine [address] [place] [address] ProviderLeah MD [address] [place] [id number] Social History Tobacco Use Types Packs/Day Years Used Date Smoking Tobacco: Never Assessed Comments Unknown Sex and Gender Information Value Date Recorded Sex Assigned at Not on file Legal Sex Female 6:39 PM CDT Gender Identity Not on file Sexual Orientation Not on file documented as of this encounter Miscellaneous Notes * Cerner Conversion Note - Leah ProviderMD - 04/05/2019 5:54 PM CDT Patient: CAMACHO STANLEY Age: 58 Years Sex: Female : 1960 58 year old female who fell at home about 4 days ago landing on front of right knee. She had pain/bruising/ but still attempted ambulation. She went to local ER and was told she had a fracture of her femur and was sent home for follow-up with local orthopedist. She stumbled and fell again about 2 days ago with increased pain about her right shoulder and difficulty raising her right arm. Her family physician evaluated her today and referred her to [facility] for defintive care. She has a hx of multiple surgeries for arnold chiari malformation leaving her with partial paralysis of the left side. awake/alert/oriented x4. in bed and unable to raise right arm, has full motion at elbow/wrist/fingers. abrasion/contusion are over anterior right shoulder. grossly NVI - RUE. pulse at wrist +1. pain with any rotation of humerus at proximal arm. right leg in posterior long leg splint. Right knee with large (6 ) ecchymotic area anterior inferior patella. patella NT to touch/palpation. tender with palpation over MFC/proximal medial tibia. large effusion in knee. toes sensate and show brisk capillary refill mobile volitionally rotation of leg illicits no groin pain. calf NT. xray/CT scan - right femur/knee - vertical nondisplaced fracture of MFC extending towards notch and then into distal medial femur - about 3 cm. proximal to condylar flar and posterior - not to cortex - vertical nondisplaced fracture of medial tibial plateau with fracture line extending slightling distal /posterior/lateral - no distal cortical break. joint line congruent xray - right humerus - located shoulder/elbow. impacted proximal humeral fx. /articular surface head intact. glenoid intact. right impacted proximal humerus fracture right nondisplaced intraarticular femur fracture right nondisplaced tibia plateau fracture h/o partial left side paralysis immobility and inability to do ADL's/personal care/feeding NPO after MN for OR to aspirate right knee and place RLE in long leg cast sling to right arm - treat humerus nonoperatively PT/OT assistance placement in SNF, close to family if possible, for personal care until more mobile and fracture healing advanced documented in this encounter Plan of Treatment Not on file documented as of this encounter Visit Diagnoses Not on filedocumented in this encounter
--- OUTSIDE RECORDS SUMMARY | 2025-02-18 09:32 | XMS_ITS | Encounter Summary ---
Author Organization [facility] [facility] Address [address] [place] [address] Care Team Providers Care Communications Senior Associate Name Role Phone Unavailable Primary Care Provider Unavailabl e Encounter Details Date Type Department Care Team (Late st Contact Info) Description 04/05/[address] [facility] [place] Family Medicine [address] [place] [address] ProviderLeah MD [address] [place] [id number] Social History Tobacco Use Types Packs/Day Years Used Date Smoking Tobacco: Never Assessed Comments Unknown Sex and Gender Information Value Date Recorded Sex Assigned at Not on file Legal Sex Female 6:39 PM CDT Gender Identity Not on file Sexual Orientation Not on file documented as of this encounter Miscellaneous Notes * Cerner Conversion Note - Historical ProviderMD - 04/05/2019 4:44 PM CDT Admission History, Adult Entered On: 04/05/2019 22:44 EDT Performed On: 04/05/2019 22:44 EDT by Cinda Mckenzie RN Advance Directive Patient has Advance Directive *Q : No, patient refuses Advance Directive information Cinda Mckenzie RN - 04/05/2019 22:38 EDT Anesthesia/Transfusion History Family History of Anesthesia Reaction : No prior transfusion(s) Transfusion History : Prior anesthesia reaction Type of Anesthesia Reaction : Excessive somnolence, Excessive shivering Family History of Anesthesia Reaction : None Cinda Mckenzie RN - 04/05/2019 22:38 EDT Functional Assessment Living Situation : Home Patient Lives With : Parent(s) Current Home Treatments : Oxygen therapy Cinda Mckenzie RN - 04/05/2019 22:38 EDT General Info Mode of Arrival on Unit : Stretcher Legal Guardian : Unaccompanied Want Family/Rep/Phys Notified of Admit : No Emergency Contact #1 : Thai Card Emergency Contact #1 Phone Number : Emergency Contact #1 Relationship : Father Emergency Contact #2 : Jerry Card Emergency Contact #2 Emergency Contact #2 Relationship : Brother Chief Complaint : Pt c/o right leg pain after fall, pt paralyzed on left side, i thinkmy right arm is broke too from being lifted for 3 days. seen at [facility] yesterday and diagnosed with femur fracture, pain 11/18, took lortab at 0700. Information Obtained From : Patient Primary Language : Urdu Communication Barrier : None Cinda Mckenzie RN - 04/05/2019 22:38 EDT Fall Risk Scales ABCs Fall Injury Risk Identification : Bones ABC Fall Injury Risk : Moderate to high injury risk REAL Hx Falls Immediate/Within 3 Months : Yes Real Secondary Diagnosis : Yes REAL Use of Ambulatory Aid : Bed rest/Nurse assist REAL IV Therapy or IV Access : Yes Myra Gait/Transferring : Impaired Real Mental Status : Oriented to own ability Real Fall Risk Score : 80 REAL Fall Scale Risk Level : 46 or > High Risk [place] Fall Interventions : Adequate lighting, Assistive devices within reach, Bed in low position, Call device within reach, Fall prevention handout/education per facility policy, Frequent orientation to call device, Frequent orientation to surroundings, Hourly comfort/safety rounds, Non-slip footwear, Personal items within reach, Reinforced to call for assistance before getting out of bed, Room free of clutter/spills, Upper side-rails up, Wheels locked, Wires/Cords secured Fall Moderate to High Risk Interventions : Bed alarm on, Chair alarm on, Patient room close to nurses station, Supervise toileting as indicated, Transport methods appropriate to patient, Visual cues in place, Wrist band (fall risk) on Fall Risk Scale Calc Temp : 0 Cinda Mckenzie RN - 04/05/2019 22:38 EDT Health Histories Smoking Status : Never (less than 100 in lifetime; none in last 30 days) Smokeless Tobacco Status : Never Cinda Mckenzie RN - 04/05/2019 22:38 EDT Social History (As Of: 04/05/2019 22:44:45 EDT) Tobacco: Never (less than 100 in lifetime) Smoking Status. Never Smokeless Tobacco Status. (Last Updated: 04/05/2019 12:49:54 EDT by AROLDO TOSCANO, Shelley) Alcohol: Alcohol Use History Yes. # Drinks/Day: 1. Date/Time of Last Drink: 03-22-19. Use in Last 12 Months: No. Alcohol Use Frequency Daily. Alcohol Use Comment Rum and diet coke (2 shots). (Last Updated: 04/05/2019 22:42:45 EDT by Cinda Mckenzie, RN) Substance Abuse: Drug Use Hx: No. Use in Last 12 Months: No. (Last Updated: 04/05/2019 12:50:04 EDT by AROLDO TOSCANO, Shelley) Height and Weight, Clinical Dosing Height Source : Stated Height Entry Format : [place] Height, Feet : 5 ft(Converted to: 152 cm, 60 Inch) Height, Inches : 3 Inch(Converted to: 0 ft 3 Inch, 7.62 cm) Clinical Height : 160.02 cm Weight Source : Bed scale Weight Entry Format : [place] Clinical Dosing Weight : 77.27 kg Weight, Pounds : 170 lb Body Surface Area (BSA) : 1.81 m2 Body Mass Index : 30.2 kg/m2 (HI) [place] Body Weight : 52 kg Cinda Mckenzie RN - 04/05/2019 22:38 EDT Infectious Disease History Infectious Disease History : Chicken pox/Shingles Fever/Chills Last 48 Hours : No Travel To Regions with Travel Advisories : No Travel Outside [place] Within Last 30 Days : No Contact With Traveler to Advisory Region : No Tuberculosis Symptoms : None Cinda Mckenzie RN - 04/05/2019 22:38 EDT Tetanus Immunization Status Previous Tetanus Immunizations : No qualifying data available. Cinda Mckenzie RN - 04/05/2019 22:38 EDT Influenza Vaccine Asmt, Adult Previous Vaccines from Immunization Schedule : No qualifying data available. Influenza Immunization, Current Season : No Inactivated Flu Vaccine Contraindications : No contraindications to inactivated influenza vaccine Transplant Workup/Recent Transplant : No Order for Influenza Vaccine : Declined Vaccination Cinda Mckenzie RN - 04/05/2019 22:38 EDT Pneumococcal Vaccine Previous Vaccines from Immunization Schedule : No qualifying data available. Pneumonia Immunization Received : No Pneumococcal Risk Assessment < Age 65 : None Cinda Mckenzie RN - 04/05/2019 22:38 EDT Nutrition History Eating Poorly Due to Decreased Appetite : Yes Unplanned Weight Loss in Past 3-6 Months : No Malnutrition Screening Tool Total(mal) : 1 Malnutrition Screening Tool Risk Level : Patient not at risk Cinda Mckenzie RN - 04/05/2019 22:38 EDT Psychosocial History Currently in Unsafe Situation : No Tried to Harm Yourself in the Past? : No Thoughts of Harming/Killing Yourself : No Cinda Mckenzie RN - 04/05/2019 22:38 EDT Sleep Apnea Risk Assmt BiPAP/CPAP Ordered for Home Use : No Hx of Obstructive Sleep Apnea Diagnosis : Yes Age over 50 Years Old : Yes Gender Male : No Cinda Mckenzie RN - 04/05/2019 22:38 EDT Valuables and Belongings Valuables and Belongings : Clothing, Personal devices, Personal items Clothing : Common streetwear Clothing Disposition : Bedside Personal Device Disposition : Bedside Personal Devices : Glasses Personal Items : Cell phone Personal Items Disposition : Bedside Cinda Mckenzie RN - 04/05/2019 22:38 EDT documented in this encounter Plan of Treatment Not on file documented as of this encounter Visit Diagnoses Not on filedocumented in this encounter
--- OUTSIDE RECORDS SUMMARY | 2025-02-18 09:32 | XMS_ITS | Encounter Summary ---
Author Organization [employer] Address [address] [place] [address] Care Team Providers Care Staff Development Nurse Name Role Phone Unavailable Primary Care Provider Unavailabl e Encounter Details Date Type Department Care Team (Late st Contact Info) Description 04/06/2019 Transcribed Document [facility] [place] Family Medicine [address] [place] [address] ProviderLeah MD [address] [place] [id number] Social History Tobacco Use Types Packs/Day Years Used Date Smoking Tobacco: Never Assessed Comments Unknown Sex and Gender Information Value Date Recorded Sex Assigned at Not on file Legal Sex Female 6:39 PM CDT Gender Identity Not on file Sexual Orientation Not on file documented as of this encounter Miscellaneous Notes * Cerner Conversion Note - Historical ProviderMD - 04/06/2019 1:50 PM CDT Treatment Intervention, OT Entered On: 04/08/2019 10:40 EDT Performed On: 04/08/2019 9:39 EDT by TINA ADAME, OTR/L General Information, OT Visit Type, OT : Treatment Note Patient Orders : Order Date Order Ordering 04/05/2019 17:52 OT Evaluation and Treatment Ordered By: DALE MALDONADO MD-ORT 04/06/2019 13:50 Occupational Therapy Additional Tx Ordered By: Active Diagnoses : 04/05/2019 00:00 Arnold-Chiari syndrome [...] syringobulbia 04/05/2019 00:00 Unspecified fall, initial encounter Admission Date : 04/05/2019 16:34 Assisted by, OT : assistant hairstylist (BLUEPRINT TRIMMER) Personal Devices : Personal Devices Glasses Assistive Devices : Assistive Devices No Devices Recorded Precautions in Place : Fall prevention measures, Fall prevention measures, high risk TINA ADAME OTR/Bindu - 04/08/2019 10:34 EDT General Status Patient Received Status : Long sitting in bed, Bed alarm activated, HOB elevated Treatment Start Time : 04/08/2019 9:39 EDT Patient Left Status : Long sitting in bed, Bed alarm activated, RN/PCT informed, All needs met and within reach, Other: BLUEPRINT TRIMMER present RN/PCT Informed Comment : nursing ok'd tx. id and verified. Treatment End Time : 04/08/2019 10:06 EDT Treatment Time : 27 Minute(s) TINA ADAME OTR/L - 04/08/2019 10:34 EDT Mobility Device/Prosthesis/Wt Bearing Weight Bearing Status Maintained : Yes Weight Bearing Status : Non right upper extremity Functional Mobility Device : Gait belt Functional Mobility with Brace/Splint : Yes Prosthetic with Functional Mobility : sling/swathe to Right UE. TINA ADAME OTR/L - 04/08/2019 10:34 EDT Functional Mobility Mobility Grid Supine to Sit : Rehab Maximal assistance (Comment: x 2 [TINA ADAME OTR/L - 04/08/2019 10:34 EDT] ) Sit to Stand : Rehab Maximal assistance (Comment: x 2 [TINA ADAME OTR/Bindu - 04/08/2019 10:34 EDT] ) Stand to Sit : Rehab Maximal assistance (Comment: x 2 [TINA ADAME OTR/L - 04/08/2019 10:34 EDT] ) Sit to Supine : Rehab Maximal assistance TINA ADAME OTR/L - 04/08/2019 10:34 EDT Plan of Care, OT OT Tx Plan/Goals Established w Patient : Yes Plan of Care Comment, OT : continue with current poc. 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 VU of UB kacey-dressing on 04/07/19 TINA ADAME OTR/Bindu - 04/08/2019 10:34 EDT TINA ADAME OTR/Bindu - 04/08/2019 10:34 EDT TINA ADAME OTR/Bindu - 04/08/2019 10:34 EDT TINA ADAME OTR/Bindu - 04/08/2019 10:34 EDT Treatment Note Subjective Comment : pt ok'd tx. Additional Objective Information : ADL Attempted sit>stand x 3 in prep for ADL transfer training (ie. bed><BSC). Pt required max assist x 2 with elevated surface for sit>stand at EOB. Pt independent with providing verbal instructions for sling/swathe application. Assessment : Pt continues to meet 2 out of 4 goals set per OT eval. Plan for Treatment : continue with skilled OT services. TINA ADAME OTR/Bindu - 04/08/2019 10:34 EDT Pain Assessment Pain Scaled Used : FACES Pain Score Pre-Intervention : 0 Pain Score During-Intervention : 0 Pain Score Post-Intervention. : 0 TINA ADAME OTR/Bindu - 04/08/2019 10:34 EDT Image 1 - Images currently included in the form version of this document have not been included in the text rendition version of the form. [facility] OT Charges OT Selfcare/Hm Mgmt Ea 15 Min : 2 TINA ADAME OTR/Bindu - 04/08/2019 10:34 EDT Electronically signed by [facility] Conversion Financial Management Cerner at 12/26/2022 1:03 PM CDT documented in this encounter Plan of Treatment Not on file documented as of this encounter Visit Diagnoses Not on filedocumented in this encounter
--- OUTSIDE RECORDS SUMMARY | 2025-02-18 09:32 | XMS_ITS | Encounter Summary ---
Author Organization [email or web address] Address [address] [place] [address] Care Team Providers Care Parcel Post Carrier Name Role Phone Unavailable Primary Care Provider Unavailabl e Encounter Details Date Type Department Care Team (Late st Contact Info) Description 04/05/2019 Transcribed Document [facility] [place] Family Medicine [address] [place] [address] ProviderLeah MD [address] [place] [id number] Social History Tobacco Use Types Packs/Day Years Used Date Smoking Tobacco: Never Assessed Comments Unknown Sex and Gender Information Value Date Recorded Sex Assigned at Not on file Legal Sex Female 6:39 PM CDT Gender Identity Not on file Sexual Orientation Not on file documented as of this encounter Miscellaneous Notes * Cerner Conversion Note - Leah ProviderMD - 04/05/2019 7:51 PM CDT ED Discharge Entered On: 04/05/2019 19:51 EDT Performed On: 04/05/2019 19:51 EDT by Avani Flaherty Rn Discharge Process Patient Disposition : Admit/Observe Personal Belongings With Patient : Yes IV Discontinued : No Nursing Documentation Completed : Yes Avani Flaherty Rn - 04/05/2019 19:51 EDT Admission, ED Nurse Report Accepted By : RAYMUNDO Loo Nurse Report Acceptance Time : 04/05/2019 18:50 EDT `Nurse Report (Hand Off) : Called Accompanied By, Discharge : Unaccompanied Reason For Hold : Pending Bed ready Mode Of Departure : Avani Lafleur Rn - 04/05/2019 19:51 EDT Electronically signed by Zulma [facility] Conversion Casing Operator Cerner at 12/26/2022 12:45 PM CDT documented in this encounter Plan of Treatment Not on file documented as of this encounter Visit Diagnoses Not on filedocumented in this encounter
--- OUTSIDE RECORDS SUMMARY | 2025-02-18 09:32 | XMS_ITS | Encounter Summary ---
Author Organization [employer] Address [address] [place] [address] Care Team Providers Care Psychiatry Teacher Name Role Phone Unavailable Primary Care Provider Unavailabl e Encounter Details Date Type Department Care Team (Late st Contact Info) Description 04/06/2019 Transcribed Document [facility] [place] Family Medicine [address] [place] [address] ProviderLeah MD [address] [place] [id number] Social History Tobacco Use Types Packs/Day Years Used Date Smoking Tobacco: Never Assessed Comments Unknown Sex and Gender Information Value Date Recorded Sex Assigned at Not on file Legal Sex Female 6:39 PM CDT Gender Identity Not on file Sexual Orientation Not on file documented as of this encounter Miscellaneous Notes * Cerner Conversion Note - Leah ProviderMD - 04/06/2019 3:04 PM CDT Treatment Intervention, PT Entered On: 04/07/2019 12:30 EDT Performed On: 04/07/2019 12:17 EDT by REMEDIOS ALEX PTA General Information, PT Visit Type, PT : Treatment Note Patient Orders : Order Date Order Ordering 04/05/2019 17:48 PT Evaluation and Treatment Ordered By: DALE MALDONADO MD-ORT 04/06/2019 15:04 PT Additional Treatment Ordered By: JOEL PINO, PT Active Diagnoses : 04/05/2019 00:00 Arnold-Chiari syndrome [...] fall, initial encounter Therapy Diagnosis, PT : Reduced mobility Admission Date : 04/05/2019 16:34 Personal Devices : Personal Devices Glasses Assistive Devices : Assistive Devices No Devices Recorded Precautions in Place : Fall prevention measures, Fall prevention measures, high risk REMEDIOS ALEX PTA - 04/07/2019 12:17 EDT General Status Patient Received Status : Supine in bed Treatment Start Time : 04/07/2019 12:00 EDT Patient Left Status : Supine in bed RN/PCT Informed Comment : RN ok'd session. Treatment End Time : 04/07/2019 12:15 EDT Treatment Time : 15 Minute(s) REMEDIOS ALEX PTA - 04/07/2019 12:17 EDT Therapeutic Exercises PT Therapeutic Exercise Grid Exercise #1 Exercises : Other: B LE ther ex while on eob, R LE ankle pumps and slr's, on L LE ankle pumps, glut and quad sets, slr's, laq's, all x 15 reps, plantar flexion and knee bends wiht orange tb. REMEDIOS ALEX PTA - 04/07/2019 12:17 EDT Functional Mobility Mobility Grid Bed Scooting : Rehab Moderate assistance Supine to Sit : Rehab Moderate assistance Sit to Supine : Rehab Moderate assistance REMEDIOS ALEX PTA - 04/07/2019 12:17 EDT Edu Topics Physical Therapy Education Grid Safety : Needs further teaching REMEDIOS ALEX PTA - 04/07/2019 12:17 EDT Plan of Care, PT PT Tx Plan/Goals Established w Patient : Yes REMEDIOS ALEX PTA - 04/07/2019 12:17 EDT Biochemistry Teacher Goals Other PT LTG Grid Goal #1 [...] : Initial goal Initial goal Initial goal REMEDIOS ALEX, CARRI - 04/07/2019 12:17 EDT REMEDIOS ALEX PTA - 04/07/2019 12:17 EDT REMEDIOS ALEX PTA - 04/07/2019 12:17 EDT Treatment Note Subjective Comment : Agreeable. No pain reported. Patient reports that cath was taking out this morning. Discussed using bed blum. Patient's Response to Treatment : Some fatigue. Additional Objective Information : Mod to sit up on eob and performed ther ex B LE's. see ther ex section note. Max to return to supine. Patient needed assistance to scoot out towards eob due to nwb status on B UE's. Assessment : Tolerated well with motivation to participate. Good sitting balance even during ther ex but needs assist to scoot out to eob due to nwb on B UE's. Plan for Treatment : Cont .PT REMEDIOS ALEX PTA - 04/07/2019 12:17 EDT Jal PT Charges PT Therap. Exercise 15 min : 1 REMEDIOS ALEX PTA - 04/07/2019 12:17 EDT documented in this encounter Plan of Treatment Not on file documented as of this encounter Visit Diagnoses Not on filedocumented in this encounter
--- OUTSIDE RECORDS SUMMARY | 2025-02-18 09:32 | XMS_ITS | Encounter Summary ---
Author Organization [employer] Address [address] [place] [address] Care Team Providers Care Millstone Cleaner Name Role Phone Unavailable Primary Care Provider Unavailabl e Encounter Details Date Type Department Care Team (Late st Contact Info) Description 04/10/2019 Transcribed Document [facility] [place] [address] [place] [address] ProviderLeah MD [address] [place] [address] Social History Tobacco Use Types Packs/Day Years Used Date Smoking Tobacco: Never Assessed Comments Unknown Sex and Gender Information Value Date Recorded Sex Assigned at Not on file Legal Sex Female 6:39 PM CDT Gender Identity Not on file Sexual Orientation Not on file documented as of this encounter Miscellaneous Notes * Cerner Conversion Note - Historical ProviderMD - 04/10/2019 1:58 PM CDT Stroke/Warfarin Instructions Entered On: 04/10/2019 13:58 EDT Performed On: 04/10/2019 13:58 EDT by ETHAN BALLESTEROS RN Stroke/Warfarin Instructions Stroke/TIA Discharge Ins : N/A Warfarin Discharge Ins : N/A ETHAN BALLESTEROS RN - 04/10/2019 13:58 EDT documented in this encounter Plan of Treatment Not on file documented as of this encounter Visit Diagnoses Not on filedocumented in this encounter
--- OUTSIDE RECORDS SUMMARY | 2025-02-18 09:33 | XMS_ITS | Encounter Summary ---
Author Organization [employer] Address [address] [place] [address] Care Team Providers Care Truck Crane Operator Name Role Phone Unavailable Primary Care Provider Unavailabl e Encounter Details Date Type Department Care Team (Late st Contact Info) Description 04/08/2019 Transcribed Document [facility] [place] [address] [place] [address] ProviderLeah MD [facility] [place], [place] [address] Social History Tobacco Use Types Packs/Day Years Used Date Smoking Tobacco: Never Assessed Comments Unknown Sex and Gender Information Value Date Recorded Sex Assigned at Not on file Legal Sex Female 6:39 PM CDT Gender Identity Not on file Sexual Orientation Not on file documented as of this encounter Miscellaneous Notes * Cerner Conversion Note - Leah ProviderMD - 04/08/2019 11:10 AM CDT Patient: CAMACHO DENNISON Age: 58 years Sex: Female : 1960 Associated Diagnoses: None Author: RUSSELL RICHEY, PharmD Pharmacy verified patient's allergies and home medication list with the patient and pharmacy records and are as follows: Home Medications (10) Active Abilify 2 mg, Oral, At Bedtime atorvastatin 10 mg oral tablet 10 mg = 1 Tab, Oral, At Bedtime carvedilol 25 mg oral tablet 12.5 mg = 0.5 Tab, Oral, BID furosemide 40 mg oral tablet 20 mg = 0.5 Tab, Oral, Daily Lomotil 2.5 mg-0.025 mg oral tablet 1 Tab, Oral, BID Chuckey 7.5 mg-325 mg oral tablet 1 Tab, PRN, Oral, Q6H potassium chloride 20 mEq oral tablet, extended release 20 mEq = 1 Tab, Oral, Daily spironolactone 25 mg, Oral, BID Synthroid 25 mcg, Oral, Daily venlafaxine 150 mg oral capsule, extended release 150 mg = 1 Cap, Oral, At Bedtime Allergies (1) Active Reaction No Known Medication Allergies Thanks, Russell Richey, PharmD/MSCR Electronically signed by Zulma [facility] Conversion Legal Editor Cerner at 12/26/2022 12:50 PM CDT documented in this encounter Plan of Treatment Not on file documented as of this encounter Visit Diagnoses Not on filedocumented in this encounter
--- OUTSIDE RECORDS SUMMARY | 2025-02-18 09:33 | XMS_ITS | Encounter Summary ---
Author Organization [employer] [facility] [employer] Address [address] [place] [address] Care Team Providers Care Lead Data Entry Operator Name Role Phone Unavailable Primary Care Provider Unavailabl e Encounter Details Date Type Department Care Team (Late st Contact Info) Description 04/06/2019 Transcribed Document [facility] [place] [address] [place] [address] ProviderLeah MD [address] [place] [address] Social History Tobacco Use Types Packs/Day Years Used Date Smoking Tobacco: Never Assessed Comments Unknown Sex and Gender Information Value Date Recorded Sex Assigned at Not on file Legal Sex Female 6:39 PM CDT Gender Identity Not on file Sexual Orientation Not on file documented as of this encounter Miscellaneous Notes * Cerner Conversion Note - Historical ProviderMD - 04/06/2019 9:09 AM CDT supervisor alum plant Form Entered On: 04/06/2019 9:09 EDT Performed On: 04/06/2019 9:09 EDT by ELIZABETH CASSIDY RN-Utilization Review UM Additional Information UM Additional Comment : Request for inpt stay. Clinicals to follow. ICD 10: S72.90Xa; W19.XXXA; R42; M25.561; M25.511; Q07.00 ELIZABETH CASSIDY, RAYMUNDO-Utilization Review - 04/06/2019 9:09 EDT documented in this encounter Plan of Treatment Not on file documented as of this encounter Visit Diagnoses Not on filedocumented in this encounter
--- OUTSIDE RECORDS SUMMARY | 2025-02-18 09:33 | XMS_ITS | Encounter Summary ---
Author Organization [facility] Address [address] [place] [address] Care Team Providers Care Rail Engineer Name Role Phone Unavailable Primary Care Provider Unavailabl e Encounter Details Date Type Department Care Team (Late st Contact Info) Description 04/08/2019 Transcribed Document [facility] Family Medicine [address] [place] [address] ProviderLeah MD [address] [place] [address] [phone] Social History Tobacco Use Types Packs/Day Years Used Date Smoking Tobacco: Never Assessed Comments Unknown Sex and Gender Information Value Date Recorded Sex Assigned at Not on file Legal Sex Female 6:39 PM CDT Gender Identity Not on file Sexual Orientation Not on file documented as of this encounter Miscellaneous Notes * Cerner Conversion Note - Leah ProviderMD - 04/08/2019 4:02 PM CDT On Going Discharge Planning Entered On: 04/08/2019 16:03 EDT Performed On: 04/08/2019 16:02 EDT by JENNIFER SOLOMON Rn-Senior AdvisoryNewspaper Vendor Progress Note Is the Patient Meeting Medical Necessity : No Did you Document Avoidable Days? : Yes Did you Attend Multidisciplinary Rounds? : No JENNIFER SOLOMON Rn-Senior Advisory - 04/08/2019 16:09 EDT Discharge Arrangements : Patient Post-Acute Information Patient Name: CAMACHO DENNISON Gender: Female : 58 Age: 58 Years No Post-Acute Placement(s) Listed No Post-Acute Service(s) Listed No [place] Referral(s) Listed Discharge Options Discussed with Patient : engineering librarian rehabilitation, Short term rehabilitation Barriers to Discharge Identified : Clinical Condition of Patient, No rehabilitation hospital bed available Barriers to Discharge Unresolved : No rehabilitation hospital bed available Patient Offered Choice/Affiliations Explained : Yes JENNIFER SOLOMON Rn-Senior Advisory - 04/08/2019 16:02 EDT Narrative Progress Note Narrative Progress Note : [facility] is sending out a nurse to do an on site assessment tomorrow. [place] [facility] is assessing today JENNIFER SOLOMON Rn-Senior Advisory - 04/08/2019 16:02 EDT documented in this encounter Plan of Treatment Not on file documented as of this encounter Visit Diagnoses Not on filedocumented in this encounter
--- OUTSIDE RECORDS SUMMARY | 2025-02-18 09:33 | XMS_ITS | Encounter Summary ---
Author Organization [facility] Address [address] [place] [address] Care Team Providers Care Credit Correspondence Clerk Name Role Phone Unavailable Primary Care Provider Unavailabl e Encounter Details Date Type Department Care Team (Late st Contact Info) Description 04/08/2019 Transcribed Document [facility] Family Medicine [address] [place] [address] ProviderLeah MD [address] [place] [address] [phone] Social History Tobacco Use Types Packs/Day Years Used Date Smoking Tobacco: Never Assessed Comments Unknown Sex and Gender Information Value Date Recorded Sex Assigned at Not on file Legal Sex Female 6:39 PM CDT Gender Identity Not on file Sexual Orientation Not on file documented as of this encounter Miscellaneous Notes * Cerner Conversion Note - Historical ProviderMD - 04/08/2019 10:24 AM CDT Treatment Intervention, PT Entered On: 04/08/2019 13:51 EDT Performed On: 04/08/2019 10:24 EDT by MONIQUE JONES AUTOMATIC MAINTAINER General Information, PT Visit Type, PT : [...] initial encounter Admission Date : 04/05/2019 16:34 Personal Devices : Personal Devices Glasses Assistive Devices : Assistive Devices No Devices Recorded Precautions in Place : Fall prevention measures, Fall prevention measures, high risk MONIQUE JONES PTA - 04/08/2019 13:37 EDT General Status Patient Received Status : Long sitting in bed, Other: 2L O2 via nasal cannula, needs in reach Treatment Start Time : 04/08/2019 9:40 EDT Patient Left Status : Long sitting in bed, Bed alarm activated, RN/PCT informed, All needs met and within reach, Other: SCUDS, 2L O2 via nasal cannula RN/PCT Informed Comment : RAYMUNDO sherman pt for therapy session Treatment End Time : 04/08/2019 10:24 EDT Treatment Time : 44 Minute(s) MONIQUE JONES PTA - 04/08/2019 13:37 EDT Edu Topics Physical Therapy Education Grid Bed Mobility Training : Verbalizes understanding, Returns demonstration, Needs further teaching Safety : Verbalizes understanding, Returns demonstration Therapeutic Exercises : Verbalizes understanding, Returns demonstration Transfer Training : Verbalizes understanding, Needs further teaching MONIQUE JONES PTA - 04/08/2019 13:37 EDT Plan of Care, PT PT Tx Plan/Goals Established w Patient : Yes MONIQUE JONES PTA - 04/08/2019 13:37 EDT Internet E Commerce Specialist Goals Other PT LTG Grid Goal #1 [...] 04/20/2019 EDT 04/20/2019 EDT Goal Status : Progressing, continue Progressing, continue Progressing, continue MONIQUE JONES PTA - 04/08/2019 13:37 EDT MONIQUE JONES, CARRI - 04/08/2019 13:37 EDT KAREN MONIQUE Monge, CARRI - 04/08/2019 13:37 EDT Treatment Note Subjective Comment : Pt agreeable to physical therapy. Patient's Response to Treatment : Pt pleasant and worked well with therapy. Additional Objective Information : - maxA x2 for bed mobility - EOB (bed elevated) to/from stand x3 maxA x2 - cues for NWB RLE/RUE - LE ther ex x20-25 while in bed: ankle pumps, quad set, gluteal set, short arch quads with orange thera band, straight leg raises - cues for proper return of exercises - time spent managing room and attending to pt's needs Ther Act: 20 minutes Ther Ex: 24 minutes Assessment : Pt was not able to maintain NWB RLE during sit to/from stand transfers with RWx. She was only able to maintain static standing < 10 seconds. Pt was not safe to attempt stand pivot transfer at this time due to poor strength and not maintaining NWB status with RLE. She would cont to benefit from further skilled PT services to improve strength and functional mobility. Plan for Treatment : Cont POC. MONIQUE JONES, CARRI - 04/08/2019 13:37 EDT Pain Assessment Pain Scaled Used : 0-10 Pain scale Pain Score Pre-Intervention : 0 MONIQUE JONES PTA - 04/08/2019 13:37 EDT Image 1 - Images currently included in the form version of this document have not been included in the text rendition version of the form. [place] [facility] Charges PT Therap. Exercise 15 min : 2 PT Ther Activities Ea 15 Min : 1 MONIQUE JONES PTA - 04/08/2019 13:37 EDT documented in this encounter Plan of Treatment Not on file documented as of this encounter Visit Diagnoses Not on filedocumented in this encounter
--- OUTSIDE RECORDS SUMMARY | 2025-02-18 09:33 | XMS_ITS | Encounter Summary ---
Author Organization [employer] [facility] [facility] [facility] Address [address] [place] [address] Care Team Providers Care Senior Product Development Manager Name Role Phone Unavailable Primary Care Provider Unavailabl e Encounter Details Date Type Department Care Team (Late st Contact Info) Description 04/09/2019 Transcribed Document [facility] Family Medicine [address] [place] [address] ProviderLeah MD [address] [place] [id number] Social History Tobacco Use Types Packs/Day Years Used Date Smoking Tobacco: Never Assessed Comments Unknown Sex and Gender Information Value Date Recorded Sex Assigned at Not on file Legal Sex Female 6:39 PM CDT Gender Identity Not on file Sexual Orientation Not on file documented as of this encounter Miscellaneous Notes * Cerner Conversion Note - Leah ProviderMD - 04/09/2019 5:43 PM CDT Patient: CAMACHO DENNISON Age: 58 years Sex: Female : 1960 Associated Diagnoses: Right knee pain and swelling; Right shoulder pain and swelling; Right knee effusion; Fall; Arnold-Chiari malformation; Syringomyelia; Left sided hemiparesis; Hypertension; Hypercholesterolemia; Hypothyroid; Mitral valve prolapse; On home oxygen; Bilateral lower extremities Lymphedema; Dizziness Author: EMILY STEWART MD-INT Basic Information awake alert comfortable, asympt. , pain under control, no trouble w. urination. Review of Systems Constitutional: No fever, No chills. Eye: No discharge, No blurring, No double vision, No visual disturbances. Ear/Nose/Mouth/Throat: No nasal congestion, No sore throat. Respiratory: No shortness of breath, No cough. Cardiovascular: No chest pain, No palpitations. Gastrointestinal: No nausea, No vomiting. Genitourinary: No change in urine stream. Musculoskeletal: right shoulder in a sling. Integumentary: Negative. Neurologic: Alert and oriented X4. Health Status Allergies: Allergies (1) Active Reaction No Known Medication Allergies None Documented Current medications: Medications (31) Active Scheduled: (6) ARIPiprazole 2 mg tab 2 mg 1 Tab, Oral, At Bedtime atorvastatin 10 mg tab 10 mg 1 Tab, Oral, At Bedtime carvedilol 25 mg tab 12.5 mg 0.5 Tab, Oral, BID docusate sodium 100 mg cap 100 mg 1 Cap, Oral, BID levothyroxine 25 mcg tab 25 mcg 1 Tab, Oral, Daily venlafaxine XR 150 mg cap 150 mg 1 Cap, Oral, At Bedtime Continuous: (0) PRN: (25) acetaminophen 325 mg tab 650 mg 2 Tab, Oral, Q4H acetaminophen/HYDROcodone 325/5 mg tab 1 Tab, Oral, Q4H acetaminophen/HYDROcodone 325/5 mg tab 2 Tab, Oral, Q4H ALPRAZolam 0.25 mg tab 0.25 mg 1 Tab, Oral, Q6H bisacodyl 10 mg supp 10 mg 1 Supp, Rectal, BID calcium gluconate 1 Gram 10 mL, IV Piggyback, Daily calcium gluconate + NaCl 0.9% 100 mL 2 Gram 20 mL, IV Piggyback, Daily calcium gluconate + NaCl 0.9% 100 mL 2 Gram 20 mL, IV Piggyback, Q12H cloNIDine 0.1 mg tab 0.1 mg 1 Tab, Oral, Q4H HYDROmorphone 1 mg/1 mL inj 0.5 mg 0.5 mL, IV Push, Q2H magnesium hydroxide 8% liq 30 mL 30 mL, Oral, Daily magnesium sulfate 2 Gram 50 mL, IV Piggyback, Daily magnesium sulfate 2 Gram 50 mL, IV Piggyback, Q2H metoclopramide 10 mg/2 mL inj 5 mg 1 mL, IV Push, Q6H ondansetron 4 mg/2 mL inj 4 mg 2 mL, IV Push, Q4H potassium chloride 10 mEq 100 mL, IV Piggyback, Q1H potassium chloride 40 mEq/30 mL liq 20 mEq 15 mL, Feeding Tube, Q2H potassium chloride 40 mEq/30 mL liq 60 mEq 45 mL, Feeding Tube, Q2H potassium chloride CR 20 mEq tab 20 mEq 1 Tab, Oral, Q2H potassium chloride CR 20 mEq tab 60 mEq 3 Tab, Oral, Q2H scopolamine 1.5 mg/72 hr patch 1 Patch, TransDermal, Q3Days sodium phosphate 15 mMole 5 mL, IV Piggyback, Daily sodium phosphate 15 mMole 5 mL, IV Piggyback, Q6H temazepam 15 mg cap 15 mg 1 Cap, Oral, At Bedtime traZODone 50 mg tab 50 mg 1 Tab, Oral, At Bedtime Problem list: Active Problems (7) Arnold-Chiari malformation CHF (congestive heart failure) Depression High cholesterol History of obstructive sleep apnea Hypertension Hypothyroid Physical Examination VS/Measurements Vital Measurements 04/09/2019 13:27 EDT Systolic Blood Pressure 103 mmHg Diastolic Blood Pressure 51 mmHg LOW Mean Arterial Pressure (MAP)-BMDI 61 Temperature Source Oral Temperature Mode Fahrenheit Temperature, Fahrenheit 98 Deg F Clinical Temperature, C 36.7 Deg C Heart Rate Monitored 66 bpm Respiratory Rate 18 Breaths/Min Oxygen Saturation 94 % Oxygen Therapy Mode Nasal cannula Oxygen Flow Rate 2 Liter/Min General: Alert and oriented, No acute distress. Eye: Pupils are equal, round and reactive to light, Extraocular movements are intact. HENT: Oral mucosa is moist. Neck: Supple, No carotid bruit, No jugular venous distention, No lymphadenopathy, No thyromegaly. Respiratory: Lungs are clear to auscultation, Breath sounds are equal. Cardiovascular: Normal rate, Regular rhythm, No murmur. Gastrointestinal: Soft, Non-tender, Normal bowel sounds, No organomegaly. Genitourinary: No costovertebral angle tenderness, No inguinal tenderness. Lymphatics: No lymphadenopathy neck, axilla, groin. Musculoskeletal: right lower extremity in a cast. Integumentary: Warm, Intact, No rash, WOUND STABLE. Neurologic: Alert, Oriented, No focal deficits. Psychiatric: Cooperative, Appropriate mood & affect. Review / Management Results review: All Results 04/09/2019 5:24 EDT Sodium Level 137 mmol/L Potassium Level 3.6 mmol/L Chloride Level 100 mmol/L LOW Carbon Dioxide Level 30 mmol/L Anion Gap 11 Glucose Level 101 mg/dL Blood Urea Nitrogen 6 mg/dL LOW Creatinine Level 0.42 mg/dL LOW eGFR >60 mL/min/1.73m2 eGFR NonAfrican >60 mL/min/1.73m2 Bun/Creatinine 14.3 Calcium Level 8.5 mg/dL Protein Total 5.9 Gram/dL LOW Albumin Level 2.9 Gram/dL LOW Globulin 3.0 Gram/dL A/G Ratio 1.0 LOW Bilirubin Total 0.7 mg/dL Alk Phos 209 Units/Liter HI AST 39 Units/Liter HI ALT 23 Units/Liter Hgb 10.2 Gram/dL LOW Hct 32.0 % LOW . Condition: Stable. Impression and Plan Diagnosis Right knee pain [...] Medical. Dizziness - Admitting, Medical. Course: Plan/ cont. current care, pt/ot, encourage oral fluid intake, nutritional support, encourage use of respirometer, motoring blood pressure, renal function, blood glucose, and urine output. for [facility] facility in a.m. if stable. documented in this encounter Plan of Treatment Not on file documented as of this encounter Visit Diagnoses Not on filedocumented in this encounter
--- OUTSIDE RECORDS SUMMARY | 2025-02-18 09:33 | XMS_ITS | Data Portability ---
Author Organization [employer] [facility] Address [address] [place] [place] [address] Assessment No assessment recorded. Plan of Treatment Reminders Order Date Submit Date Provider Last Modified By Organization Details Last Modified Time Details Appointments None recorded. Lab None recorded. Referral None recorded. Procedures None recorded. Surgeries None recorded. Imaging None recorded. Medication Orders ketorolac 60 mg/2 mL intramuscul ar solution 2023 [id number], [address] , [place], [place], [id number], 16:00:49 Patient TargetsNo targets recorded. Patient Instructions Encounter Date Encounter Id Patient Instructions Last Modified By Organization Details Last Modified Time 08/06/2024 [id number] head or face pain: care instructions [email or web address] Not available 08/06/2024 15:29:56 Reviewed ER note s - no fracture Reviewed records from Dr Hagan Patient showed me text/message thread where she asked Dr Hagan for pain meds and she declined; told ER doctor that she was just here for pain medicine Explained that I could not write her narcotic pain medication either but did offer Toradol, which she accepted [email or web address] Not available 08/06/2024 15:59:29 Reason for Referral None Reported. Problems Name Problem SNOMED Code Status Onset Date Resolution Date Notes Provider Name and Address Organization Details Recorded Time Contusion of face [id number] Active JAVIER King [address] [place] [address], [phone], [employer] 15:58:21 Problem Notes None recorded. Procedures Surgical History Date Name Laterality Status Provider Name and Address Organization Details Recorded Time Orthopedic Surgery completed MemeCátedras Libres 08/06/2024 14:27:50 Neurosurgery completed Meme [facility] [employer] [facility] [employer] 08/06/2024 14:31:41 Imaging Results None recorded. Procedure Notes None recorded. Medical Equipment None Reported. Allergies Allergen ID Allergen Name Allergen Category Reaction Reaction Severity Criticality Documentation Date Start Date Code Code System Note Provider Name and Address Organization Details Recorded Time 43660 tizanidin e medicatio n Not available Not available Not available 08/06/2024 08246 [facility] [employer]. 14:21:19 Medications Name Sig Start Date Stop Date Status Note LastModified by Organization Details LastModified Time cyclobenzap rine 10 mg tablet TAKE 1 TABLET BY MOUTH THREE TIMES DAILY NEEDED 08/06 completed Not Available Not Available Not Available furosemide 40 mg tablet TAKE ONE TABLET BY MOUTH EVERY DAY 08/06 completed Not Available Not Available Not Available venlafaxine ER 75 mg capsule,ext ended release 24 hr TAKE 1 CAPSULE BY MOUTH EVERY DAY IN THE EVENING active Not Available Not Available No t Available doxycycline hyclate 100 mg capsule TAKE ONE CAPSULE BY MOUTH TWICE DAILY FOR 7 DAYS 08/06 completed Not Available Not Available Not Available valacyclovi r 1 gram tablet TAKE 1 TABLET BY MOUTH THREE TIMES DAILY FOR 7 DAYS 08/06 completed Not Available Not Available Not Available hydrocodone 5 mg-acetamin ophen 325 mg tablet TAKE ONE TABLET BY MOUTH EVERY 6 HOURS NEEDED FOR PAIN MAY CAUSE DROWSINES S 08/06 completed Not Available Not Available Not Available Synthroid 125 mcg tablet 08/06 completed Not Available Not Available Not Available alendronate 70 mg tablet Take 1 tablet every week by oral route. active Not Available Not Available No t Available permethrin 5 % topical cream 08/06 completed Not Available Not Available Not Available venlafaxine ER 150 mg capsule,ext ended release 24 hr active Not Available Not Available Not Available sulfamethox azole 800 mg-trimetho prim 160 mg tablet TAKE ONE TABLET BY MOUTH TWICE DAILY FOR 10 DAYS -- FINISH ALL MEDICINE -- 08/06 completed Not Available Not Available Not Available spironolact one 25 mg tablet TAKE 1 TABLET BY MOUTH TWICE DAILY NEEDED active Not Available Not Available No t Available potassium chloride ER 20 mEq tablet,exte nded release(par t/cryst) TAKE 1 TABLET BY MOUTH EVERY DAY active Not Available Not Available No t Available prednisolon e acetate 1 % eye drops,suspe nsion INSTILL 1 DROP INTO BOTH EYES FOUR TIMES DAILY FOR 1 WEEK active Not Available Not Available No t Available furosemide 80 mg tablet TAKE 1 TABLET BY MOUTH EVERY DAY IN THE MORNING active Not Available Not Available No t Available ascorbic acid (vitamin C) 250 mg tablet Take 1 tablet every day by oral route at dinner. active Not Available Not Available No t Available hydrocodone 7.5 mg-acetamin ophen 325 mg tablet TAKE 1 TABLET BY MOUTH TWICE DAILY NEEDED 08/06 completed Not Available Not Available Not Available cephalexin 500 mg capsule TAKE 2 CAPSULES BY MOUTH TWICE DAILY FOR 10 DAYS 08/06 completed Not Available Not Available Not Available erythromyci n 5 mg/gram (0.5 %) eye ointment APPLY A SMALL AMOUNT TO THE CONER OF THE RIGHT EYE 2 TIMES A DAY FOR 1 WEEK 08/06 completed Not Available Not Available Not Available esomeprazol e magnesium 40 mg capsule,del ayed release 08/06 completed Not Available Not Available Not Available nystatin 100,000 unit/gram topical cream APPLY TOPICALLY TO THE AFFECTED AREA(S) FOUR TIMES DAILY FOR 10 DAYS -- FOR EXTERNAL USE ONLY-- active Not Available Not Available No t Available hydroxyzine HCl 25 mg tablet TAKE 1 TO 2 TABLETS BY MOUTH AT BEDTIME NEEDED FOR INSOMNIA active Not Available Not Available No t Available mupirocin 2 % topical ointment APPLY SMALL AMOUNT TOPICALLY TO THE AFFECTED AREA THREE TIMES DAILY active Not Available Not Available No t Available furosemide 20 mg tablet TAKE 1 TABLET BY MOUTH EVERY DAY NEEDED 08/06 completed Not Available Not Available Not Available loteprednol etabonate 0.5 % eye drops,suspe nsion 08/06 completed Not Available Not Available Not Available polyethylen e glycol 3350 17 gram/dose oral powder DISSOLVE 17 GRAMS OF POWDER INTO 4 TO 8 OUNCES OF WATER, JUICE, SODA, COFFEE, OR TEA THEN DRINK TWICE DAILY 08/06 completed Not Available Not Available Not Available ketorolac 60 mg/2 mL intramuscul ar solution Inject 1 mL by intramusc ular route. 2023 active Not Available Not Available Not Avai lable magnesium 250 mg (as magnesium oxide) tablet Take 1 tablet every day by oral route. active Not Available Not Available No t Available Vitamin 27 mg iron-0.8 mg tablet TAKE ONE TABLET BY MOUTH EVERY DAY AT 500pm active Not Available Not Available No t Available Synthroid 137 mcg tablet active Not Available Not Available Not Available cyclobenzap rine 5 mg tablet TAKE ONE TABLET BY MOUTH THREE TIMES DAILY NEEDED FOR MUSCLE SPASMS 08/06 completed Not Available Not Available Not Available epinastine 0.05 % eye drops INSTILL 1 DROP IN BOTH EYES TWICE DAILY active Not Available Not Available No t Available Calcium 600 + D(3) 1 po daily active Not Available Not Available No t [...] Not Available Not Available No t Available Calmoseptin e 0.44 %-20.6 % topical ointment apply to buttocks 3 times a day prn active Not Available Not Available No t Available Xifaxan 550 mg tablet TAKE ONE TABLET BY MOUTH TWICE DAILY 08/06 completed Not Available Not Available Not Available Vitals Date Recorded Body height Body mass index (BMI) Body weight Body temperature Heart rate Oxygen saturation Oxygen saturation in Arterial blood by Pulse oximetry Systolic blood pressure Diastolic blood pressure Provider Name and Address Organization Details Last Updated DateTime 4 144.78 cm 31.7 kg/m2 00047.6 4 g 97.5 [degF] 97 /min 97 % 97 % 113 mm[Hg] 68 mm[Hg] Meme Castillo [employer] 4 14:17:09 Social History Question Answer Notes LastModified by Organizat ion Details LastModified Time Tobacco Smoking Status Former Smoker Meme lewis [employer] 08/06/2024 14:15:36 Do You Have An Advance Directive? No Information not available 08/06/2024 Is Your Home Air Conditioned? Yes Information not available 08/06/2024 If You Are , What Was Your Level Of Alcohol Consumption Prior To ? None Information not available 08/06/2024 Are You Blind Or Do You Have Difficulty Seeing? Yes Information not available 08/06/2024 What Is Your Level Of Caffeine Consumption? Moderate Information not available 08/06/2024 What Type Of Cone Marker Do You Use? None Information not available 08/06/2024 Have You Been To An Area Known To Be High Risk For COVID-19? No Information not available 08/06/2024 Are You Deaf Or Do You Have Serious Difficulty Hearing? No Information not available 08/06/2024 What Type Of Diet Are You Following? REGULAR Information not available 08/06/2024 What Is The Highest Grade Or Level Of School You Have Completed Or The Highest Degree You Have Received? [id number] Information not available 08/06/2024 Have There Been Any Changes To Your Family Or Social Situation? Yes Information no t available 08/06/2024 When Did You Quit Smoking? 16+yearssince lastcigarette Information not available 08/06/2024 Are There Any Guns Present In Your Home? No Information not available 08/06/2024 Which Of Your Hands Is Dominant? Right Information not available 08/06/2024 What Is Your Home Situation? Other Information not available 08/06/2024 Do You Have A Medical Power Of Airconditioning Drafting Officer? No Information not available 08/06/2024 What Was The Date Of Your Most Recent Tobacco Screening? 08/06/2024 Information not available 08/06/2024 Do You Have Any Pets? Yes Information not available 08/06/2024 What Is Your Relationship Status? Information not available 08/06/2024 Have You Repeated Any Grades? No Information not available 08/06/2024 Do You Use Your Seat Belt Or Car Seat Routinely? Yes Information not available 08/06/2024 Are You Sexually Active? No Information not available 08/06/2024 Do You Have Smoke And Carbon Monoxide Detectors In Your Home? Yes Information not available 08/06/2024 At What Age Did You Start Smoking Tobacco? 18 Information not available 08/06/2024 Are You Passively Exposed To Smoke? No Information no t available 08/06/2024 Are There Any Smokers In Your House? No Information not available 08/06/2024 How Much Tobacco Do You Smoke? No Information not available 08/06/2024 Do You Participate In Social Media? No Information not available 08/06/2024 Do You Use Sunscreen Routinely? Yes Information not available 08/06/2024 Has Tobacco Cessation Counseling Been Provided? No Information not available 08/06/2024 Have You Recently Traveled Abroad? No Information not available 08/06/2024 Do You Have Difficulty Walking Or Climbing Stairs? Yes Information not available 08/06/2024 Are You Currently In School? No Information not available 08/06/2024 Do You Have Any Dietary Restrictions? No Information not available 08/06/2024 Sex: Unknown Functional Status Question Answer Note LastModified by Organizat ion Details LastModified Time Do you use any illicit or recreational drugs? No Information not available 08/06/2024 Do you or have you ever used any other forms of tobacco or nicotine? No Information not available 08/06/2024 What is your level of alcohol consumption? None Information not available 08/06/2024 Are you currently employed? No Information not available 08/06/2024 Do you have transportation difficulties? Yes Information not available 08/06/2024 Are you able to walk? NOINDWHEEL Information not available 08/06/2024 Do you have difficulty doing errands alone? Yes Information not available 08/06/2024 Are you able to care for yourself? Yes Information n ot available 08/06/2024 Do you have difficulty dressing or bathing? Yes Information not available 08/06/2024 What is your exercise level? None Information not available 08/06/2024 Mental Status Question Answer Note LastModified by Organizat ion Details LastModified Time Do you feel stressed (tense, restless, nervous, or anxious, or unable to sleep at night)? [id number] Information not available 08/06/2024 Do you have difficulty concentrating, remembering or making decisions? No Information no t available 08/06/2024 Family History Relationship Description Onset Age of this Age Resolved Age Notes LastModified by Organization Details LastModified Time Father Heart disease Not available 2023 14:25:30 Mother History of macular degeneration Not available 14:26:06 Mother Alzheimer's disease Not available 2023 14:26:18 Maternal Grandmother History of macular degeneration Not available 14:26:11 Maternal Grandmother Alzheimer's disease Not available 2023 14:26:22 Medical History Condition Response Coronary Artery Disease N Other N Gout N Blood Diseases N Kidney Stones Y Hyperthyroidism N Blood Transfusion N Breast Cancer N Emergency room visit since last appointm ent. Y Lung Disease N COPD N Depression Y Dermatologic Disorders N Hypothyroidism N Defects or Inherited Disease N Developmental or Behavioral Disorders N Breast Problem N Difficulty Swallowing N Anesthesia Complications N History of STI N Meniere's disease N Anxiety Disorder Y Muscle, Joint, or Bone Problems N Autoimmune disease N Vision or Eye Problems N Arthritis Y Polyps N Infertility N Mental Disorder N Congenital Anomalies N Acid Reflux (GERD) N Cancer N Stroke N Neurologic/Epilepsy Y Endometriosis N Bladder or Kidney Problems N High Cholesterol Y Liver Disease N Psychiatric/Mental Health Condition N Organ Transplant N Dialysis N Schizophrenia N Fibromyalgia N Headaches N Kidney Disease N Allergies/Hayfever N Heart Problems N Ear or Hearing Problems N Hospitalizations N Learning Disorder N Artificial Joints N Thyroid Problems Y GI Problems N Acne N ADD/ADHD N Eating Disorder N Anemia N Constipation N Mental Illness N Diabetes N Ovarian Cancer N Bedwetting N Hepatitis/Liver Disease Y Tuberculosis N Eczema N Abuse/Domestic Violence N Diverticulitis N Asthma N Trauma/Violence N Substance Abuse N Reflux/GERD N Depression/ depression N Hepatitis N Heart Disease N Pulmonary Embolism N Tourette Syndrome N Chronic Ear Infections N Pre-Eclampsia N Hypertension Y Chicken Pox N Autism Spectrum Disorder (ASD) N Osteoporosis N Thrombophilias N Gynecological History Statement/Question Response Menses Monthly N If Post Menopausal, Age at Menopause 34 Date of Last Pap Smear Current Control Method Other Most Recent Mammogram Desired Control Method Other Obstetrics History GPAL:G 0 P 0 0 0 0 Immunizations Vaccine Type Date Status Note Provider Nam e and Address Organization Details Recorded Time Tdap 4 completed JAVIER King [address] [place] [address], [phone], [email or web address] 08/09/2024 17:27:38 pneumococcal polysaccharide PPV23 2 completed JAVIER King [address] [place] [address], [phone], [employer] 08/09/2024 17:28:03 influenza, unspecified formulation 3 completed JAVIER King [address] [place] [address], [phone], [email or web address] 08/09/2024 17:28:28 Past Encounters Encounter ID Performer Location Encounter Start Date Encounter Closed Date Diagnosis/Indication Diagnosis SNOMED-CT Code Diagnosis ICD10 Code Diagnosis Note [id number] JAVIER King [facility] [address] [place] [address] 08/06/2024 13:05:56 08/06/2024 16:13:47 Pain in face 04639251 R51.9 Contusion of face 098075 004 S00.83XA Health Concerns Section Related Observation LastModified by Organization Detai ls LastModified Time None Recorded Concern Status LastModified by Organization Details LastModified Time None Recorded Advance Directives Directive N: Payers Insurance Date Sequence Insurance Name Policy Number Policy Cantu Covered Member ID Cantu Member ID Guarantor Name 08/06/2024 1 [facility] [place] Tiffanie Dennison [id number] Tiffanie Dennison 08/06/2024 2 [facility] [id number] Tiffanie Dennison [id number] Tiffanie Dennison Notes Date Note Type Note Provider Name and Address Organization Details Recorded Time 08/06/2024 text/html Diagnosed with cerebellar disorder (Chiari malformation) in 2002. This has subjected her to numerous falls.Broke her hip approximately one year ago. She was actually leaving her therapy appointment and fell getting into the car.States that she fell 8 days ago. States that it happened in the middle of the night. Did not lose consciousness.Has extreme bruising of her face with pain in her left jaw. 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 Has cirrhosis of the liver. States she also has a hernia that is due to be repaired next month. She is not on a blood thinner.History of alcohol use. States that she hasn't had a drink since ELENA last year. In the past she also took a lot of pain medication for various ailments.She is a patient of Dr Hagan. Has communicated via text and phone. Was told to alternate Tylenol and Ibuprofen for the pain. Also has a rash on her abdomen that Dr Hagan said was scabies. Has been using permethrin cream for a week with no relief. JAVIER King [address] [place] [address], [place], [phone], [facility] [employer] 08/06/2024 16:00:53 OBGyn Episode No OBEpisode recorded.
--- OUTSIDE RECORDS SUMMARY | 2025-02-18 09:33 | XMS_ITS | Encounter Summary ---
Author Organization [employer] Address [address] [place] [address] Care Team Providers Care Supervisor Lathing Name Role Phone Unavailable Primary Care Provider Unavailabl e Encounter Details Date Type Department Care Team (Late st Contact Info) Description 04/09/2019 Transcribed Document [facility] Family Medicine [address] [place] [address] ProviderLeah MD [address] [place] [id number] Social History Tobacco Use Types Packs/Day Years Used Date Smoking Tobacco: Never Assessed Comments Unknown Sex and Gender Information Value Date Recorded Sex Assigned at Not on file Legal Sex Female 6:39 PM CDT Gender Identity Not on file Sexual Orientation Not on file documented as of this encounter Miscellaneous Notes * [employer] Con[employer] Note - Historical ProviderMD - 04/09/2019 12:12 PM CDT Treatment Intervention, PT Entered On: 04/09/2019 13:46 EDT Performed On: 04/09/2019 12:12 EDT by Lauren Mendoza, [employer] Cook Lead General Information, PT Visit Type, PT : [...] initial encounter Therapy Diagnosis, PT : Reduced mobility. Admission Date : 04/05/2019 16:34 Assisted by, PT : Occupational Therapist Personal Devices : Personal Devices Glasses Assistive Devices : Assistive Devices No Devices Recorded Precautions in Place : Fall prevention measures, Fall prevention measures, high risk Lauren Mendoza [employer] Lead - 04/09/2019 13:33 EDT General Status Patient Received Status : Supine in bed, Bed alarm activated, Other: positioned comfortably with pillows, arm sling on RUE, cast on RLE, all needs within reach. Treatment Start Time : 04/09/2019 11:48 EDT Patient Left Status : Supine in bed, Bed alarm activated, RN/PCT informed, Communication board completed, All needs met and within reach, Other: positioned comfortably with pillows, arm sling on RUE, cast on RLE. RN/PCT Informed Comment : RAYMUNDO sherman PT. Treatment End Time : 04/09/2019 12:12 EDT Treatment Time : 24 Minute(s) Lauren Mendoza [employer] Lead - 04/09/2019 13:33 EDT Edu Topics Physical Therapy Education Grid Balance Training : Verbalizes understanding, Returns demonstration, Needs further teaching Bed Mobility Training : Verbalizes understanding, Returns demonstration, Needs further teaching Home Program/Exercises : Verbalizes understanding Home Safety : Verbalizes understanding Pain Management : Verbalizes understanding Positioning : Verbalizes understanding Precaution/Contraindication : Verbalizes understanding, Returns demonstration, Needs further teaching Safety : Verbalizes understanding Therapeutic Exercises : Verbalizes understanding, Returns demonstration Transfer Training : Verbalizes understanding Use of Assistive Device : Verbalizes understanding Lauren Mendoza [employer] Lead - 04/09/2019 13:33 EDT Plan of Care, PT PT Tx Plan/Goals Established w Patient : Yes Lauren Mendoza [employer] Cook Lead - 04/09/2019 13:33 EDT Fpc Goals Other PT LTG Grid Goal #1 [...] : Progressing, continue Progressing, continue Progressing, continue Lauren Mendoza [employer] Cook Lead - 04/09/2019 13:33 EDT Lauren Mendoza [employer] Cook Lead - 04/09/2019 13:33 EDT Lauren Mendoza [employer] Cook Lead - 04/09/2019 13:33 EDT Treatment Note Subjective Comment : Pt agreeable to therapy. Patient's Response to Treatment : Good. Additional Objective Information : Pt completed bed mobility from supine to sit with maxAx2. VCs with technique, safety awareness and maintainance of NWB RUE & RLE. Pt sat at EOB x10min working on endurance and sitting balance. She performed sit<>stand x1min with modAx2. Pt fatigued quickly and was not able to follow NWB on RLE. She was max assisted x2 BTB, comfortably positioned with pillows and alarm on. Assessment : Pt making steady progress towards LTGs. She did not meet any today. Pt having great difficulty with maintaining NWB RLE with standing. She cannot safely transfer to chair. Recommdended using lift for transfers. Plan for Treatment : Continue per POC. Lauren Mendoza [employer] Lead - 04/09/2019 13:33 EDT Pain Assessment Pain Scaled Used : FACES Pain Score Pre-Intervention : 4 Pain Score During-Intervention : 4 Pain Score Post-Intervention. : 4 Lauren Mendoza [employer] Cook Lead - 04/09/2019 13:33 EDT Image 1 - Images currently included in the form version of this document have not been included in the text rendition version of the form. [facility] Charges PT Ther Activities Ea 15 Min : 2 Lauren Mendoza [employer] Lead - 04/09/2019 13:33 EDT documented in this encounter Plan of Treatment Not on file documented as of this encounter Visit Diagnoses Not on filedocumented in this encounter
--- OUTSIDE RECORDS SUMMARY | 2025-02-18 09:33 | XMS_ITS | Encounter Summary ---
Author Organization [employer] Address [address] [place] [address] Care Team Providers Care Swimming Pool Installer Name Role Phone Unavailable Primary Care Provider Unavailabl e Encounter Details Date Type Department Care Team (Late st Contact Info) Description 04/07/2019 Transcribed Document [facility] [place] [facility] [address] [place] [address] ProviderLeah MD [facility] [place] [address] Social History Tobacco Use Types Packs/Day Years Used Date Smoking Tobacco: Never Assessed Comments Unknown Sex and Gender Information Value Date Recorded Sex Assigned at Not on file Legal Sex Female 6:39 PM CDT Gender Identity Not on file Sexual Orientation Not on file documented as of this encounter Miscellaneous Notes * [employer] Conversion Note - Historical ProviderMD - 04/07/2019 11:26 AM CDT Patient: CAMACHO STANLEY Age: 58 Years Sex: Female : 1960 comfortable in cast. denies any skin irritation about cast. denies any calf pain, SOB,CP, parathesia in sling for right humerus fracture. ice has been helpful for both sites right cylinder cast in good shape no skin irritation about the edges. grossly NVI/RUE and RLE no pain about aright elbow or wrist ; able to show full AROM at these sites. grossly NVI to RUE. s/p casting right nondisplaced femur and tibia fracture. right impacted humerus fracture sling/swath to RUE - rom elbow/pendulum exercise NWB - RUE/RLE SNF placement PT/OT consult - bed to chair /slide/ RUE exercise. documented in this encounter Plan of Treatment Not on file documented as of this encounter Visit Diagnoses Not on filedocumented in this encounter
--- OUTSIDE RECORDS SUMMARY | 2025-02-18 09:33 | XMS_ITS | Encounter Summary ---
Author Organization [employer] Address [address] [place] [address] Care Team Providers Care Clerk Travel Reservations Name Role Phone Unavailable Primary Care Provider Unavailabl e Encounter Details Date Type Department Care Team (Late st Contact Info) Description 04/08/2019 Transcribed Document [facility] [place] [address] [place] [address] ProviderLeah MD [address] [place] [id number] Social History Tobacco Use Types Packs/Day Years Used Date Smoking Tobacco: Never Assessed Comments Unknown Sex and Gender Information Value Date Recorded Sex Assigned at Not on file Legal Sex Female 6:39 PM CDT Gender Identity Not on file Sexual Orientation Not on file documented as of this encounter Miscellaneous Notes * Cerner Conversion Note - Leah ProviderMD - 04/08/2019 11:30 AM CDT On Going Discharge Planning Entered On: 04/08/2019 11:32 EDT Performed On: 04/08/2019 11:30 EDT by JENNIFER SOLOMON, Rn-Job CaptainIt Sales Representative Progress Note Discharge Arrangements : Patient Post-Acute Information Patient Name: CAMACHO STANLEY Gender: Female : 58 Age: 58 Years No Post-Acute Placement(s) Listed No Post-Acute Service(s) Listed No Curaspan Referral(s) Listed Discharge Options Discussed with Patient : custodial rehabilitation, Short term rehabilitation Barriers to Discharge Identified : Clinical Condition of Patient, No rehabilitation hospital bed available Barriers to Discharge Unresolved : No rehabilitation hospital bed available Patient Offered Choice/Affiliations Explained : Yes Were Referrals Sent to Post Acute Providers : Yes Is the Patient Meeting Medical Necessity : No Did you Document Avoidable Days? : Yes Did you Attend Multidisciplinary Rounds? : No NEHA, JENNIFER W, Rn-Job Captain - 04/08/2019 11:30 EDT Narrative Progress Note Narrative Progress Note : Patient is awaiting bed offer, CM left for [facility] and updated referral in [facility]. JENNIFER SOLOMON Rn-Job Captain - 04/08/2019 11:30 EDT Electronically signed by Zulma [facility] Conversion Interior Design Program Chair Cerner at 12/26/2022 12:44 PM CDT documented in this encounter Plan of Treatment Not on file documented as of this encounter Visit Diagnoses Not on filedocumented in this encounter
--- OUTSIDE RECORDS SUMMARY | 2025-02-18 09:33 | XMS_ITS | Encounter Summary ---
Author Organization [employer] Address [address] [place] [address] Care Team Providers Care Coal Hauler Name Role Phone Unavailable Primary Care Provider Unavailabl e Encounter Details Date Type Department Care Team (Late st Contact Info) Description 04/06/2019 Transcribed Document [facility] Family Medicine [address] [place] [address] ProviderLeah MD [address] [place] [id number] Social History Tobacco Use Types Packs/Day Years Used Date Smoking Tobacco: Never Assessed Comments Unknown Sex and Gender Information Value Date Recorded Sex Assigned at Not on file Legal Sex Female 6:39 PM CDT Gender Identity Not on file Sexual Orientation Not on file documented as of this encounter Miscellaneous Notes * Cerner Conversion Note - Leah ProviderMD - 04/06/2019 11:59 AM CDT Initial Discharge Planning Entered On: 04/06/2019 12:04 EDT Performed On: 04/06/2019 11:59 EDT by JOHN LIM SW Initial Assessment I Previously Documented Living Environment : No qualifying data available. Living Situation : Home Patient Lives With : Parent(s) Is the Patient a Caregiver at Home? : No Emergency Contact #1 : Thai Card Emergency Contact #1 Phone Number : Emergency Contact #1 Relationship : Father Emergency Contact #2 : Jerry Kyaw Emergency Contact #2 Emergency Contact #2 Relationship : Brother JOHN LIM SW - 04/06/2019 11:59 EDT Initial Assessment II Sensory and Motor Deficits : Weakness, Other: femur fx and humerous fx Current Home Treatments and Equipment : Walker, Wheelchair JOHN LIM SW - 04/06/2019 11:59 EDT Discharge Needs I Anticipated Discharge Date : 04/10/2019 EDT Anticipated Discharge To, CM : halfway facility Current Home Treatment/Equipment : Current Home Treatment/Equipment No qualifying data available. LIMJOHN VILLANUEVAKRUNAL - 04/06/2019 11:59 EDT Discharge Needs II Professional Skilled Services : Professional Skilled Services No qualifying data available. Needs Assistance with Transportation : Maybe Discharge Options Discussed with Patient : intermission coordinator rehabilitation, Short term rehabilitation JOHN LIM, KRUNAL - 04/06/2019 11:59 EDT Narrative Note Narrative Note : Pt is 58 year old female who is residing currently in [facility] with her parents. She recently sold her house and was getting ready to move into an ADA approved house, when she fell and was brought to the hospital. 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 She states she fell at her parents home and was dx with femur fraction and humerous fracture. Pt states that she was taken to the OR this morning for draining by Dr. Stanley, and states she will not be undergoing any surgery. [facility] and [facility] would like to go to [facility] in [place]. She states her second choice is [facility] in [place]. According to her face sheet, she has [facility] Medicare advantage as primary and for life as secondary. PT has not seen or evaluated pt yet. Referral will be made to [facility] and [facility] after PT/OT has seen and evaluated. Will continue to follow. JOHN CANNON, KRUNAL - 04/06/2019 11:59 EDT documented in this encounter Plan of Treatment Not on file documented as of this encounter Visit Diagnoses Not on filedocumented in this encounter
--- OUTSIDE RECORDS SUMMARY | 2025-02-18 09:33 | XMS_ITS | Encounter Summary ---
Author Organization [employer] Address [address] [place] [address] Care Team Providers Care Satellite Dish Installer Name Role Phone Unavailable Primary Care Provider Unavailabl e Encounter Details Date Type Department Care Team (Late st Contact Info) Description 04/08/2019 Transcribed Document [facility] [place] [address] [place] [address] ProviderLeah MD [address] [place] [address] Social History Tobacco Use Types Packs/Day Years Used Date Smoking Tobacco: Never Assessed Comments Unknown Sex and Gender Information Value Date Recorded Sex Assigned at Not on file Legal Sex Female 6:39 PM CDT Gender Identity Not on file Sexual Orientation Not on file documented as of this encounter Miscellaneous Notes * Cerner Conversion Note - Leah ProviderMD - 04/08/2019 10:41 PM CDT Patient: CAMACHO DENNISON Age: 58 years Sex: Female : 1960 Associated Diagnoses: Right knee pain and swelling; Right shoulder pain and swelling; Right knee effusion; Fall; Arnold-Chiari malformation; Syringomyelia; Left sided hemiparesis; Hypertension; Hypercholesterolemia; Hypothyroid; Mitral valve prolapse; On home oxygen; Bilateral lower extremities Lymphedema; Dizziness Author: EMILY STEWART MD-INT Basic Information awake alert comfortable, asympt. , pain under control, ???Complaining of frequent urination ???We will DC Lasix and spiral Aldactone Review of Systems Constitutional: No fever, No chills. Eye: No discharge, No blurring, No double vision, No visual disturbances. Ear/Nose/Mouth/Throat: No nasal congestion, No sore throat. Respiratory: No shortness of breath, No cough. Cardiovascular: No chest pain, No palpitations. Gastrointestinal: No nausea, No vomiting. Genitourinary: No change in urine stream. Musculoskeletal: right upper extremity numbness laying, right lower extremity in the cast. Integumentary: Negative. Neurologic: Alert and oriented X4. [...] Hypertension Hypothyroid Physical Examination VS/Measurements Vital Measurements 04/08/2019 22:37 EDT Temperature Source Oral Temperature Mode Fahrenheit Heart Rate Monitored 78 bpm Respiratory Rate 18 Breaths/Min Oxygen Saturation 98 % 04/08/2019 22:00 EDT Systolic Blood Pressure 120 mmHg Diastolic Blood Pressure 66 mmHg Mean Arterial Pressure (MAP)-BMDI 76 Temperature, Fahrenheit 98.3 Deg F Clinical Temperature, C 36.8 Deg C Heart Rate Monitored 79 bpm Oxygen Saturation 96 % General: Alert and oriented, No acute distress. [...] Lymphatics: No lymphadenopathy neck, axilla, groin. Musculoskeletal: Normal strength, No swelling. Integumentary: Warm, Intact, No rash, WOUND STABLE. Neurologic: Alert, Oriented, No focal deficits. Psychiatric: Cooperative, Appropriate mood & affect. Review / Management Results review: All Results 04/07/2019 2:58 EDT Sodium Level 135 mmol/L LOW Potassium Level 4.0 mmol/L Chloride Level 100 mmol/L LOW Carbon Dioxide Level 27 mmol/L Anion Gap 12 Glucose Level 102 mg/dL Blood Urea Nitrogen 8 mg/dL Creatinine Level 0.52 mg/dL LOW eGFR >60 mL/min/1.73m2 eGFR NonAfrican >60 mL/min/1.73m2 Bun/Creatinine 15.4 Calcium Level 8.0 mg/dL LOW . Condition: Stable. Impression and Plan [...] renal function, blood glucose, and urine output. pain control, DVT prophylaxis, close monitoring fluid and electrolytes, when necessary nebs, for risk precautions, sleep apnea precautions, need placement. documented in this encounter Plan of Treatment Not on file documented as of this encounter Visit Diagnoses Not on filedocumented in this encounter
--- OUTSIDE RECORDS SUMMARY | 2025-02-18 09:33 | XMS_ITS | Encounter Summary ---
Author Organization [employer] Address [address] [place] [address] Care Team Providers Care Political Director Name Role Phone Unavailable Primary Care Provider Unavailabl e Encounter Details Date Type Department Care Team (Late st Contact Info) Description 04/06/2019 Transcribed Document [facility] [place] Medicine [address] [place] [address] ProviderLeah MD [address] [place] [phone] Social History Tobacco Use Types Packs/Day Years Used Date Smoking Tobacco: Never Assessed Comments Unknown Sex and Gender Information Value Date Recorded Sex Assigned at Not on file Legal Sex Female 6:39 PM CDT Gender Identity Not on file Sexual Orientation Not on file documented as of this encounter Miscellaneous Notes * Cerner Conversion Note - Leah ProviderMD - 04/06/2019 8:44 AM CDT SARANYA Main OR IntraOp Summary Primary Physician: DALE MALDONADO MD-ORT Finalized Date/Time: 04/16/19 13:09:05 Pt. Name: TIFFANIE STANLEY/Sex: 1960 Female Med Rec #: [id number] Physician: EMILY STEWART MD-INT Financial #: [id number] Pt. Type: I Room/Bed: [facility] Admit/Disch: 04/05/19 16:34:00 - 04/10/19 15:18:00 Institution: [facility] IntraOp Case Attendance Entry 1 Entry 2 Entry 3 Case Attendee DALE MALDONADO GRAHAM, KIMBERLY, RN Mine Finn MD-ORT Road Commissioner Role Performed Surgeon/Proceduralist, Laboratory Technology Teacher, First Scrub, First First Time In 04/06/19 08:37:00 04/06/19 08:37:00 04/06/19 08:37:00 Time Out 04/06/19 09:07:00 04/06/19 09:07:00 04/06/19 09:07:00 Procedure Closed Reduction Lower Closed Reduction Lower Closed Reduction Lower Extremity, Knee Joint Extremity, Knee Joint Extremity, Knee Joint Aspiration Aspiration Aspiration Other Attendee Superficial Wound Closed By: Last Modified By: CARLOS NAILS RN GRAHAM, KIMBERLY, CARLOS JARA RN 04/06/19 08:57:49 04/06/19 08:57:49 04/06/19 08:57:49 Entry 4 Entry 5 Entry 6 Case Attendee SARAH ALONZO, ALEXIA BARRERA, LUIS Lanza, Adelita Ruano, Pot Operator Role Performed Manager Statistical Programming, First Anesthesiologist Occupational Therapy Program Director Time In 04/06/19 08:37:00 04/06/19 08:37:00 04/06/19 08:37:00 Time Out 04/06/19 09:07:00 04/06/19 09:07:00 04/06/19 09:07:00 Procedure Closed Reduction Lower Closed Reduction Lower Closed Reduction Lower Extremity, Knee Joint Extremity, Knee Joint Extremity, Knee Joint Aspiration Aspiration Aspiration Other Attendee Superficial Wound Closed By: Last Modified By: CARLOS NAILS RN GRAHAM, KIMBERLY, CARLOS JARA, RAYMUNDO 04/06/19 08:58:53 04/06/19 08:57:49 04/06/19 08:57:49 [facility] IntraOp Case Attendance Audit 04/06/19 08:58:53 Inclusion Internship: RU Modifier: RU 4 <+> Role Performed 4 <*> Procedure Closed Reduction Lower Extremity, Knee Joint Aspiration 04/06/19 08:57:49 Inclusion Internship: RU Modifier: RU 1 <+> Time Out 1 <*> Procedure Closed Reduction Lower Extremity, Knee Joint Aspiration 2 <+> Time Out 2 <*> Procedure Closed Reduction Lower Extremity, Knee Joint Aspiration 3 <+> Time Out 3 <*> Procedure Closed Reduction Lower Extremity, Knee Joint Aspiration 4 <+> Time Out 4 <*> Procedure Closed Reduction Lower Extremity, Knee Joint Aspiration 5 <+> Time Out 5 <*> Procedure Closed Reduction Lower Extremity, Knee Joint Aspiration 6 <+> Time Out 6 <*> Procedure Closed Reduction Lower Extremity, Knee Joint Aspiration [facility] IntraOp Case Times Entry 1 Patient In Room Time 04/06/19 08:37:00 Out Room Time 04/06/19 09:07:00 Anesthesia Start Time 04/06/19 08:37:00 Stop Time 04/06/19 09:07:00 Anesthesia Ready 04/06/19 08:37:00 Surgery / Procedure Times Start Time 04/06/19 08:44:00 Stop Time 04/06/19 08:57:00 Last Modified By: CARLOS NAILS RN 04/06/19 08:57:37 [facility] IntraOp Case Times Audit 04/06/19 08:57:37 Inclusion Internship: RU Modifier: RU <+> 1 Out Room Time <+> 1 Stop Time <+> 1 Stop Time S[facility] IntraOp Departure from OR Entry 1 Integumentary Assessment Integumentary WDL Assessment WDL Transfer/Handoff Transfer to PACU Phase I Handoff Method Bedside/Face to face Post-op Transport Bed (including Via specialty) Patient Transport CARLOS NAILS RN, Accompanied by ALEXIA GARCIA DO-ANS Last Modified By: CARLOS NAILS RN 04/06/19 08:53:54 S[facility] IntraOp Dressing and Packing Entry 1 Entry 2 Type Dressing Supplemental Application Location OPSITE Wound Dressing Item Krishan, Webril Wound Packing Type Tape Type Supplemental Cast, plaster, Cast, Cast, fiberglass Applications fiberglass Applied By DALE MALDONADO, DALE MALDONADO MD-ORT -ORT Other Comments Last Modified By: CARLOS NAILS RN GRAHAM, KIMBERLY, RN 04/06/19 08:53:20 04/06/19 08:53:20 SJE IntraOp Fire Risk Assessment Entry 1 Fire Info Surgical Site or 0- No Incision Above the Xyphoid Open O2 Source 0- No (Mask or Cannula) Available Ignition 0- No (ESU, Laser, Light Source) Fire Risk 0 Assessment Score Fire Score Fire Risk Yes Assessment Complete Fire Risk CARLOS NAILS RN Assessment Verified By Fire Risk 04/06/19 08:37:00 Assessment Verified Date/Time Fire Risk High Risk Protocol Yes Implemented Standard Fire Yes Safety Precautions Followed Last Modified By: CARLOS NAILS RN 04/06/19 08:49:23 SJE IntraOp General Case Hot Walker 1 Case Information OR OR 01 SJE Case Level 1 Room Verified Yes Wound Class I - Clean Specialty SN Orthopedic Anesthesia Type MAC ASA Class 3E Diagnosis Preop Diagnosis fracture right leg Postop Same As Preop Yes Postop Diagnosis fracture right leg Last Modified By: CARLOS NAILS RN 04/06/19 08:50:50 SJE IntraOp Intraoperative Assessment Entry 1 Handoff Method Bedside/Face to face Valid History / Yes Physical in Chart Preoperative Yes Checklist Reviewed/Evaluated Allergies Reviewed Yes Patient is Latex No Sensitive Isolation Not applicable Precautions Noted Level of WDL Consciousness (WDL = Alert, Oriented to Person, Place, and Time) Skin Assessment Yes Verified Present Upon IVs, Urinary catheter Arrival to OR Last Modified By: CARLOS NAILS RN 04/06/19 08:50:15 SJE IntraOp Intraoperative Equipment Entry 1 Equipment Intraop Monitoring Electrocardiogram Three lead placement (ECG) Electrode Placement Blood Pressure Non-Invasive BP Device Source Blood Pressure Arm, left upper Location Pulse Oximeter Hand, right Probe Site Antiembolic Devices Scopes Photo/Video Documentation Photo No Video No Last Modified By: CARLOS NAILS RN 04/06/19 08:51:40 SJE IntraOp Patient Positioning Entry 1 Procedure Closed Reduction Lower Extremity, Knee Joint Aspiration Body Position Supine Left Arm Position Secured on padded arm board Right Arm Position Secured on padded arm board Left Leg Position Uncrossed, parallel Right Leg Position Held on field Feet Uncrossed Yes Pressure Points Yes Checked Positioning Devices Pillows, Safety Strap, Chest Positioned By CARLOS NAILS RN, DALE MALDONADO MD-ORPamella, SARAH ALONZO PA Position Verified Positioning Yes Verified by Anesthesia Positioning Yes Verified by Surgeon Last Modified By: CARLOS NAILS RN 04/06/19 08:48:59 SJE IntraOp Sign In Entry 1 Patient, Site, Yes Procedure Identified Surgical Consent Yes Confirmed Relevant Surgical Yes Documents Available Surgical Site Yes Marked by person performing procedure Anesthesia Machine Yes Check Completed Medication Checks Yes Completed Allergies No Airway Difficult No Airway/Aspiration Risk Difficult No Airway/Aspiration Intervention Equipment Available Blood Loss Risk No Blood Loss No Intervention Equipment Prepared and Ready Blood Identifiers Not applicable Verified Per Policy Hypothermia Risk Yes Warming Measures Yes Taken Last Modified By: CARLOS NAILS RN 04/06/19 08:46:27 SJE Intra Op Sign Out Entry 1 RN Confirmation Surgical Yes Procedure(s) Identified Instrument, Sponge N/A and Sharps Counts Correct/Documented Equipment Problems N/A Documented Specimen Labeled N/A Correctly Urinary Catheter N/A Documented in IView Ye Patient Yes Recovery Concerns Reviewed with Anesthesia Provider, Surgeon and RN Ye Patient Yes Management Concerns Reviewed with Anesthesia Provider, Surgeon and RN Safety Checklist Yes Elements Complete? RN Sign Out CARLOS NAILS RN Signature RN Sign Out 04/06/19 08:57:00 Signature Date/Time Plan of Care Outcome - Fire Risk OUTCOME STATEMENT: Goal met Patient is free from injury related to surgical fire Plan of Care Outcome - Pt Positioning OUTCOME STATEMENT: Goal met Absence of signs and symptoms of positioning injury. Plan of Care Outcome - Skin Prep OUTCOME STATEMENT: Goal met Intraoperative care is consistent with measures to prevent infection Plan of Care Outcome - Xray/Images OUTCOME STATEMENT: Goal met Absence of observable signs or symptoms of radiation injury Plan of Care Outcome - Counts OUTCOME STATEMENT: Goal met Absence of signs and symptoms of injury related to extraneous objects Last Modified By: CARLOS NAILS RN 04/06/19 08:57:25 SJE Intra Op Sign Out Audit 04/06/19 08:57:25 Inclusion Internship: RU Modifier: RU <+> 1 RN Sign Out Signature Date/Time SJE IntraOp Skin Prep Entry 1 Procedure Closed Reduction Lower Extremity, Knee Joint Aspiration Prep Area right knee Intraop Prep Integumentary WDL Assessment WDL Prep Agents Chloraprep Prep by DALE MALDONADO MD-ORT Hair Removal Last Modified By: CARLOS NAILS RN 04/06/19 08:51:16 SJE IntraOp Surgical Procedures Entry 1 Entry 2 Procedure Closed Reduction Lower Knee Joint Aspiration Extremity Modifiers Additional right knee aspriation, cylinder cast Procedure application cylinder application ,aspiration Description cast right Primary Procedure Yes No Primary Surgeon DALE MALDONADO VASICEK, VERONICA A, MD-ORT MD-ORPamella Start 04/06/19 08:44:00 04/06/19 08:44:00 Stop 04/06/19 08:57:00 04/06/19 08:57:00 Physician States Cecum Reached Anesthesia Type General General Specialty SN Orthopedic SN Orthopedic Wound Class I - Clean I - Clean Last Modified By: CARLOS NAILS RN GRAHAM, KIMBERLY, RN 04/06/19 08:57:16 04/06/19 08:57:16 SJE IntraOp Surgical Procedures Audit 04/06/19 08:57:16 Inclusion Internship: RU Modifier: RU 1 <*> Procedure Closed Reduction Lower Extremity 1 <+> Stop 1 <+> Additional Procedure Description 2 <*> Procedure Knee Joint Aspiration 2 <+> Stop SJE IntraOp Time Out Entry 1 Procedure to be Closed Reduction Lower Performed Extremity, Knee Joint Aspiration Time Out Time Out Pause Time 04/06/19 08:43:00 All activity Yes suspended (unless life threatening emergency) Team Verbally Correct patient Confirms Information identity, Correct side and site are marked, Consent form is present and accurate, Agreement on the procedure to be done, Correct patient position, Relevant images/results properly labeled/appropriately displayed, Confirm the skin prep has dried, Performed in location of procedure after prepped/draped Antibiotic N/A Prophylaxis Administered Or In Progress Within the Last 60 Minutes Beta Rio Yes Administered Venous N/A Thromboembolism Prophylaxis Required Anticipated Critical Events Surgeon None expected Anesthesia Provider None expected Nursing Assures Sterility of instruments Essential Imaging Yes Labeled and Displayed Last Modified By: CARLOS NAILS RN 04/06/19 08:50:01 SJE IntraOp X-Ray and Images Entry 1 X-Ray/Imaging Type Fluoroscopy Fluoroscopy Type C-Arm Site OPSITE Client Support Associate Name Pool Adelita Ruano, Pot Operator Protective Devices Yes Used Last Modified By: CARLOS NAILS RN 04/06/19 08:52:11 Case Comments <None> Finalized By: Alice Flowers, RN Document Signatures Signed By: CARLOS NAILS RN 04/06/19 08:58 Alice Flowers RN 04/08/19 10:36 Alice Flowers RN 04/08/19 10:38 Alice Flowers RN 04/16/19 13:09 Unfinalized History Date/Time Username Reason for Unfinalizing Freetext Reason for Unfinalizing 04/08/19 10:33 MELLINR Chart Audit 04/08/19 10:37 MELLINR Chart Audit 04/16/19 13:08 MELLINR Chart Audit Electronically signed by Zulma, [facility] Conversion Autocad Draftsman Cerner at 12/26/2022 1:03 PM CDT documented in this encounter Plan of Treatment Not on file documented as of this encounter Visit Diagnoses Not on filedocumented in this encounter
--- OUTSIDE RECORDS SUMMARY | 2025-02-18 09:33 | XMS_ITS | Encounter Summary ---
Author Organization [employer] Address [address] [place] [address] Care Team Providers Care Family Consultant Name Role Phone Unavailable Primary Care Provider Unavailabl e Encounter Details Date Type Department Care Team (Late st Contact Info) Description 04/09/2019 Transcribed Document [facility] [place] Family Medicine [address] [place] [address] ProviderLeah MD [address] [place] [phone] Social History Tobacco Use Types Packs/Day Years Used Date Smoking Tobacco: Never Assessed Comments Unknown Sex and Gender Information Value Date Recorded Sex Assigned at Not on file Legal Sex Female 6:39 PM CDT Gender Identity Not on file Sexual Orientation Not on file documented as of this encounter Miscellaneous Notes * Cerner Conversion Note - Leah ProviderMD - 04/09/2019 2:05 PM CDT On Going Discharge Planning Entered On: 04/09/2019 14:07 EDT Performed On: 04/09/2019 14:05 EDT by KOLBY ORNELAS RN-School Psychology SpecialistSurveillance Agent Progress Note Discharge Arrangements : Patient Post-Acute Information Patient Name: CAMACHO DENNISON Gender: Female : [birth year] Age: 58 Years No Post-Acute Placement(s) Listed No Post-Acute Service(s) Listed No Curaspan Referral(s) Listed Discharge Options Discussed with Patient : deputy chief executive rehabilitation, Short term rehabilitation Barriers to Discharge Identified : Clinical Condition of Patient, No rehabilitation hospital bed available Barriers to Discharge Unresolved : No rehabilitation hospital bed available Patient Offered Choice/Affiliations Explained : Yes KOLBY ORNELAS, RN-School Psychology Specialist - 04/09/2019 14:05 EDT Narrative Progress Note Narrative Progress Note : 04/09 CM received call from Oumou in admissions at [facility] and Auth obtained for d.//c on 02/08 to there .....joan infromed patient.......KOLBY Murry, RN-School Psychology Specialist - 04/09/2019 14:05 EDT Electronically signed by Zulma [facility] Conversion Profile Grinder Technician Cerner at 12/26/2022 12:40 PM CDT documented in this encounter Plan of Treatment Not on file documented as of this encounter Visit Diagnoses Not on filedocumented in this encounter
--- OUTSIDE RECORDS SUMMARY | 2025-02-18 09:33 | XMS_ITS | Encounter Summary ---
Author Organization [employer] Address [address] [place] [address] Care Team Providers Care Glass Block Bender Name Role Phone Unavailable Primary Care Provider Unavailabl e Encounter Details Date Type Department Care Team (Late st Contact Info) Description 04/10/2019 Transcribed Document [facility] [place] Family Medicine [address] [place] [address] ProviderLeah MD [facility] [place] [address] Social History Tobacco Use Types Packs/Day Years Used Date Smoking Tobacco: Never Assessed Comments Unknown Sex and Gender Information Value Date Recorded Sex Assigned at Not on file Legal Sex Female 6:39 PM CDT Gender Identity Not on file Sexual Orientation Not on file documented as of this encounter Miscellaneous Notes * Cerner Conversion Note - Historical ProviderMD - 04/10/2019 5:00 AM CDT Chart Check - Review Order Profile Entered On: 04/10/2019 4:11 EDT Performed On: 04/10/2019 5:00 EDT by Carolina Reyes Rn-Mundo Chart Check Powerplans Initiated/Discontinued as Appropriate : Yes All Active Orders Reviewed : Yes Carolina Reyes Rn-Resource - 04/10/2019 4:11 EDT documented in this encounter Plan of Treatment Not on file documented as of this encounter Visit Diagnoses Not on filedocumented in this encounter
--- OUTSIDE RECORDS SUMMARY | 2025-02-18 09:33 | XMS_ITS | Encounter Summary ---
Author Organization [employer] Address [address] [place] [address] Care Team Providers Care Automatic Riveting Machine Operator Name Role Phone Unavailable Primary Care Provider Unavailabl e Encounter Details Date Type Department Care Team (Late st Contact Info) Description 04/06/2019 Transcribed Document [facility] [place] Family Medicine [address] [place], [place] [id number] ProviderLeah MD [address] [place] [id number] Social History Tobacco Use Types Packs/Day Years Used Date Smoking Tobacco: Never Assessed Comments Unknown Sex and Gender Information Value Date Recorded Sex Assigned at Not on file Legal Sex Female 6:39 PM CDT Gender Identity Not on file Sexual Orientation Not on file documented as of this encounter Miscellaneous Notes * Cerner Conversion Note - Leah ProviderMD - 04/06/2019 9:07 AM CDT DATE OF PROCEDURE: 04/06/2019 PREOPERATIVE DIAGNOSIS(ES): Nondisplaced right distal femoral intra-articular fracture and right nondisplaced intra-articular medial tibial plateau fracture and right knee hematoma. POSTOPERATIVE DIAGNOSIS(ES): Nondisplaced right distal femoral intra-articular fracture and right nondisplaced intra-articular medial tibial plateau fracture and right knee hematoma. PROCEDURE: Aspiration of right knee hematoma and application of cylinder cast. SURGEON: Bailey Stanley MD CHECKROOM CHIEF: MARII Stephen necessary for positioning and holding of limb and application of cast. INDICATIONS: This is a 58-year-old woman who has sustained the above-named fractures after falls at home. She presents now for stabilization and aspiration for pain control. DESCRIPTION OF PROCEDURE: After obtaining IV sedation anesthesia, the splint from her leg was removed. There was a small lesion on the side of her lateral proximal calf. This was eschar with no surrounding erythema. It was cleaned and Neosporin ointment and Mepilex dressings applied. We then prepped the lateral side of the knee with DuraPrep and passed an 18-gauge spinal needle into the suprapatellar pouch and aspirated 50 mL of hemarthrosis. The needle was withdrawn and the Band-Aid was applied. At this time, a long-leg stockinette was applied followed by cast padding and a cylinder cast was constructed. Once this was in place, we confirmed no displacement of fracture, both distal femur and proximal tibia. Patient was then taken in stable condition to the recovery room. Bailey Stanley M.D. Dict: 04/06/2019 09:07:29 Trans: 04/06/2019 09:19:49 CC1: Bailey Stanley M.D. documented in this encounter Plan of Treatment Not on file documented as of this encounter Visit Diagnoses Not on filedocumented in this encounter
--- OUTSIDE RECORDS SUMMARY | 2025-02-18 09:33 | XMS_ITS | Encounter Summary ---
Author Organization [employer] Address [address] [place] [address] Care Team Providers Care Digital Content Specialist Name Role Phone Unavailable Primary Care Provider Unavailabl e Encounter Details Date Type Department Care Team (Late st Contact Info) Description 04/06/2019 Transcribed Document [facility] [place] [address] [place] [address] ProviderLeah MD [facility] [place] [address] Social History Tobacco Use Types Packs/Day Years Used Date Smoking Tobacco: Never Assessed Comments Unknown Sex and Gender Information Value Date Recorded Sex Assigned at Not on file Legal Sex Female 6:39 PM CDT Gender Identity Not on file Sexual Orientation Not on file documented as of this encounter Miscellaneous Notes * Cerner Conversion Note - Historical ProviderMD - 04/06/2019 2:00 AM CDT Shower Screen Installer Details Entered On: 04/06/2019 0:47 EDT Performed On: 04/06/2019 2:00 EDT by Cinda Mckenzie RN Order Details Transport Mode Order Detail : Wheelchair Isolation Precautions Order Detail : Standard Precautions Order Detail : 0 IV Order Detail : 1 Oxygen Order Detail : 1 Nurse Collect Order Detail : 0 Lift/Transfer : Moderate assist Central Line Order Detail : No Room Service : Not Appropriate Arterial Line : No Cinda Mckenzie, RN - 04/06/2019 0:47 EDT documented in this encounter Plan of Treatment Not on file documented as of this encounter Visit Diagnoses Not on filedocumented in this encounter
--- OUTSIDE RECORDS SUMMARY | 2025-02-18 09:33 | XMS_ITS | Encounter Summary ---
Author Organization [employer] Address [address] [place] [address] Care Team Providers Care Baker Apprentice Name Role Phone Unavailable Primary Care Provider Unavailabl e Encounter Details Date Type Department Care Team (Late st Contact Info) Description 04/09/2019 Transcribed Document [facility] [place] [address] [place] [address] ProviderLeah MD [address] [place] [address] Social History Tobacco Use Types Packs/Day Years Used Date Smoking Tobacco: Never Assessed Comments Unknown Sex and Gender Information Value Date Recorded Sex Assigned at Not on file Legal Sex Female 6:39 PM CDT Gender Identity Not on file Sexual Orientation Not on file documented as of this encounter Miscellaneous Notes * Cerner Conversion Note - Leah ProviderMD - 04/09/2019 2:10 PM CDT On Going Discharge Planning Entered On: 04/09/2019 14:11 EDT Performed On: 04/09/2019 14:10 EDT by JENNIFER SOLOMON, Rn-Yard Truck DriverBiology Manager Progress Note Discharge Arrangements : Patient Post-Acute Information Patient Name: CAMACHO STANLEY Gender: Female : 58 Age: 58 Years No Post-Acute Placement(s) Listed No Post-Acute Service(s) Listed No [place] Referral(s) Listed Discharge Options Discussed with Patient : 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 : Yes Did you Attend Multidisciplinary Rounds? : No JENNIFER SOLOMON Rn-Yard Truck Driver - 04/09/2019 14:10 EDT Narrative Progress Note Narrative Progress Note : Precert approved for [facility], patient has a bed for tomorrow. JENNIFER SOLOMON Rn-Yard Truck Driver - 04/09/2019 14:10 EDT Electronically signed by [facility] Conversion Fitting Room Attendant Cerner at 12/26/2022 12:55 PM CDT documented in this encounter Plan of Treatment Not on file documented as of this encounter Visit Diagnoses Not on filedocumented in this encounter
--- OUTSIDE RECORDS SUMMARY | 2025-02-18 09:33 | XMS_ITS | Encounter Summary ---
Author Organization [employer] Address [address] [place] [address] Care Team Providers Care Spool Worker Name Role Phone Unavailable Primary Care Provider Unavailabl e Encounter Details Date Type Department Care Team (Late st Contact Info) Description 04/09/2019 Transcribed Document [facility] [place] [address] [place] [address] ProviderLeah MD [address] [place] [id number] Social History Tobacco Use Types Packs/Day Years Used Date Smoking Tobacco: Never Assessed Comments Unknown Sex and Gender Information Value Date Recorded Sex Assigned at Not on file Legal Sex Female 6:39 PM CDT Gender Identity Not on file Sexual Orientation Not on file documented as of this encounter Miscellaneous Notes * Cerner Conversion Note - Historical ProviderMD - 04/09/2019 10:47 AM CDT Patient: CAMACHO STANLEY Age: 58 Years Sex: Female : 1960 c/o of spasm in right leg last night - helped with PRN/ and position change denies Calf pain , SOB, CP. voiding /eating. doing best with finger foods and shakes due to difficulty with both arms limitations. right cylinder cast - intact, skin edges clear, negative kathleen's to BLE. RUE - tender at proximal humerus, no pain about the elbow/wrist. grossly NVI full ROM about right elbow. s/p cylinder cast to right femur/tibia fx. - stable right impacted proximal humerus fx continue present plan skin care finger foods and protein shakes for ease of eating f/u ortho 2 weeks s/p hospital d/c. documented in this encounter Plan of Treatment Not on file documented as of this encounter Visit Diagnoses Not on filedocumented in this encounter
--- OUTSIDE RECORDS SUMMARY | 2025-02-18 09:33 | XMS_ITS | Encounter Summary ---
Author Organization [employer] Address [address] [place] [address] Care Team Providers Care Magazine Worker Name Role Phone Unavailable Primary Care Provider Unavailabl e Encounter Details Date Type Department Care Team (Late st Contact Info) Description 04/07/2019 Transcribed Document [facility] [place] [address] [place] [address] ProviderLeah MD [facility] [place] [address] Social History Tobacco Use Types Packs/Day Years Used Date Smoking Tobacco: Never Assessed Comments Unknown Sex and Gender Information Value Date Recorded Sex Assigned at Not on file Legal Sex Female 6:39 PM CDT Gender Identity Not on file Sexual Orientation Not on file documented as of this encounter Miscellaneous Notes * Cerner Conversion Note - Historical ProviderMD - 04/07/2019 7:00 PM CDT Patch Check Entered On: 04/07/2019 22:10 EDT Performed On: 04/07/2019 19:00 EDT by Temitope Montelongo Rn Patch Check Patch Check Result : No Patch Check - Type of Patch : No Patch Found Temitope Montelongo Rn - 04/07/2019 22:10 EDT documented in this encounter Plan of Treatment Not on file documented as of this encounter Visit Diagnoses Not on filedocumented in this encounter
--- OUTSIDE RECORDS SUMMARY | 2025-02-18 09:33 | XMS_ITS | Encounter Summary ---
Author Organization [employer] Address [address] [place] [address] Care Team Providers Care Visitor Services Assistant Name Role Phone Unavailable Primary Care Provider Unavailabl e Encounter Details Date Type Department Care Team (Late st Contact Info) Description 04/07/2019 Transcribed Document [facility] [place] [address] [place] [address] ProviderLeah MD [facility] [place] [address] Social History Tobacco Use Types Packs/Day Years Used Date Smoking Tobacco: Never Assessed Comments Unknown Sex and Gender Information Value Date Recorded Sex Assigned at Not on file Legal Sex Female 6:39 PM CDT Gender Identity Not on file Sexual Orientation Not on file documented as of this encounter Miscellaneous Notes * Cerner Conversion Note - Historical ProviderMD - 04/07/2019 5:00 AM CDT Chart Check - Review Order Profile Entered On: 04/07/2019 3:53 EDT Performed On: 04/07/2019 5:00 EDT by Asiya Kelly, Rn Chart Check Powerplans Initiated/Discontinued as Appropriate : Yes All Active Orders Reviewed : Yes Asiya Kelly Rn - 04/07/2019 3:53 EDT documented in this encounter Plan of Treatment Not on file documented as of this encounter Visit Diagnoses Not on filedocumented in this encounter
--- OUTSIDE RECORDS SUMMARY | 2025-02-18 09:33 | XMS_ITS | Encounter Summary ---
Author Organization [employer] Address [address] [place] [address] Care Team Providers Care Science Education Professor Name Role Phone Unavailable Primary Care Provider Unavailabl e Encounter Details Date Type Department Care Team (Late st Contact Info) Description 04/10/2019 Transcribed Document [facility] [place] Family Medicine [address] [place] [address] ProviderLeah MD [address] [place] [address] Social History Tobacco Use Types Packs/Day Years Used Date Smoking Tobacco: Never Assessed Comments Unknown Sex and Gender Information Value Date Recorded Sex Assigned at Not on file Legal Sex Female 6:39 PM CDT Gender Identity Not on file Sexual Orientation Not on file documented as of this encounter Miscellaneous Notes * Cerner Conversion Note - Leah ProviderMD - 04/10/2019 2:52 PM CDT Patient: CAMACHO DENNISON Age: 58 years Sex: Female : 1960 Associated Diagnoses: Right knee pain and swelling; Right shoulder pain and swelling; Right knee effusion; Fall; Arnold-Chiari malformation; Syringomyelia; Left sided hemiparesis; Hypertension; Hypercholesterolemia; Hypothyroid; Mitral valve prolapse; On home oxygen; Bilateral lower extremities Lymphedema; Dizziness Author: EMILY STEWART MD-INT Basic Information 58 years old white female with a complicated medical history as listed below who was admitted with right distal femur and proximal tibia fracture in addition to right proximal humerus fracture (for more details please see H&P ). 1???right distal femur/tibia fracture, patient was taken to the OR by and she had a cast placed to her right lower extremity 2???right proximal humerus fracture, noted for surgical intervention as it will heal on its own. 3???Arnold Chiari malformation, stable, 4???syringomyelia, stable 5???left sided hemiparesis, on PT//OT. 6???benign essential hypertension, all blood pressure medications were on hold for systolic blood pressure less than 130 and resumed 1 blood pressure became stabilized. 7???hypercholesterolemia, atorvastatin was given daily daily at bedtime 8???hypothyroidism, Synthroid was given at the home dose. 9???anxiety/depression, Effexor XL was given daily. During her hospitalization, patient was on DVT prophylaxis. She started on PT/OT. Initially she started on clear liquid diet which was advanced to regular diet and was tolerating well oral. Intake. She had a BM. Her urine output was adequate. Today, patient is awake alert cooperative responsive under no acute distress and she got the maximum benefit from her hospital stay and she will be discharged to residential facility to continue her care and rehabilitation. Patient is stable for discharge Review of Systems Constitutional: No fever, No weakness, No fatigue. Eye: No recent visual problem, No double vision, No visual disturbances. Ear/Nose/Mouth/Throat: No nasal congestion, No sore throat. Respiratory: No shortness of breath, No cough, No wheezing. Cardiovascular: No chest pain, No tachycardia. Gastrointestinal: No nausea, No vomiting. Genitourinary: Negative. Musculoskeletal: Right leg in a cast, right upper extremity in a sling. Integumentary: No rash, No pruritus. Neurologic: Alert and oriented X4, no dizziness. Health Status Allergies: Allergies (1) Active Reaction [...] obstructive sleep apnea Hypertension Hypothyroid Physical Examination General: Alert and oriented, No acute distress. [...] Lymphatics: No lymphadenopathy neck, axilla, groin. Musculoskeletal: Right upper extremity in a sling, right lower extremity in a cast. Integumentary: Warm, Intact, No rash. Neurologic: Alert, Oriented, No focal deficits. Psychiatric: [...] Hct 32.0 % LOW . Condition: Stable. Discharge Plan Discharge Summary Plan Discharge Status: stable. Orders Diagnosis Right knee pain and swelling - Discharge, Medical. Right shoulder pain and swelling - Discharge, Medical. Right knee effusion - Discharge, Medical. Fall - Discharge, Medical. Arnold-Chiari malformation - Discharge, Medical. Syringomyelia - Discharge, Medical. Left sided hemiparesis - Discharge, Medical. Hypertension - Discharge, Medical. Hypercholesterolemia - Discharge, Medical. Hypothyroid - Discharge, Medical. Mitral valve prolapse - Discharge, Medical. On home oxygen - Discharge, Medical. Bilateral lower extremities Lymphedema - Discharge, Medical. Dizziness - Discharge, Medical. Course Improving. Stable. Plan/ pt is HD & CLINICALLY STABLE AFEBRILE OK TO D/C TO USP FACILITY. Orders Order Profile (Selected) Documented Medications Documented Abilify: 2 mg, Oral, At Bedtime, 0 Refill(s) Lomotil 2.5 mg-0.025 mg oral tablet: 1 Tab, Oral, BID, May take additional doses if needed, 0 Refill(s) Newhope 7.5 mg-325 mg oral tablet: 1 Tab, Oral, Q6H, PRN as needed for pain, 0 Refill(s) Synthroid: 25 mcg, Oral, Daily, 0 Refill(s) atorvastatin 10 mg oral tablet: 1 Tab, Oral, At Bedtime, 0 Refill(s) carvedilol 25 mg oral tablet: 0.5 Tab, Oral, BID, 0 Refill(s) furosemide 40 mg oral tablet: 0.5 Tab, Oral, Daily, In the afternoon, 0 Refill(s) potassium chloride 20 mEq oral tablet, extended release: 1 Tab, Oral, Daily, In the afternoon, 0 Refill(s) spironolactone: 25 mg, Oral, BID, 0 Refill(s) venlafaxine 150 mg oral capsule, extended release: 1 Cap, Oral, At Bedtime, 0 Refill(s). Impression and Plan twt 40 mn documented in this encounter Plan of Treatment Not on file documented as of this encounter Visit Diagnoses Not on filedocumented in this encounter
--- OUTSIDE RECORDS SUMMARY | 2025-02-18 09:33 | XMS_ITS | Encounter Summary ---
Author Organization [employer] Address [address] [place] [address] Care Team Providers Care Rural Route Mail Carrier Name Role Phone Unavailable Primary Care Provider Unavailabl e Encounter Details Date Type Department Care Team (Late st Contact Info) Description 04/09/2019 Transcribed Document [facility] [place] Family [place] [address] [place] [address] ProviderLeah MD [facility] [place] [place], [place] [address] Social History Tobacco Use Types Packs/Day Years Used Date Smoking Tobacco: Never Assessed Comments Unknown Sex and Gender Information Value Date Recorded Sex Assigned at Not on file Legal Sex Female 6:39 PM CDT Gender Identity Not on file Sexual Orientation Not on file documented as of this encounter Miscellaneous Notes * Cerner Conversion Note - Leah ProviderMD - 04/09/2019 8:30 AM CDT PLEASE MODIFY BEFORE SIGNING CLINICAL DOCUMENTATION CLARIFICATION FORM: Dear : ____Estefani__ Date: __04/09/2019 Please exercise your independent, professional judgment in responding to the clarification form. Clinical indicators are provided on the bottom of this form for your review Please check appropriate box(s): [ ] Acute Respiratory Failure: [ ] with Hypoxia [ ] with Hypercapnia [ ] Acute On Chronic Respiratory Failure: [ ] with Hypoxia [ ] with Hypercapnia [ ] Chronic Respiratory Failure only [ ] with Hypoxia [ ] with Hypercapnia [ ] Hypoxia [ x ] Other diagnosis _Arnold Chiari Malformations [ ] Unable to determine For continuity of documentation, please document condition throughout progress notes and discharge summary. Thank You. _ To be completed by CDI/Coding staff for physician review: Present Clinical Indicators - Signs / Symptoms / Labs Results and Location in Medical Record [ x ] Decreased oxygen saturation (<90% room air or < 95% on oxygen). Cyanosis/Hypoxia 04/0544-Offzrq-54% O2 sat on RA 04/0507-Nxmjht-35% O2 sat on 2L [ x] Bilateral opacities in CXR/CT Chest 04/05-CXR- mild bibasilar atelectasis Present Risk Factors Results and Location in Medical Record [ x ] History of home O2 use 04/05-H&P- on home oxygen [ x ] Recent trauma 04/05-H&P-right distal femur fracture and right proximal humerus fracture Present Treatments Results and Location in Medical Record [ x ] Oxygen 04/06-MD orders-Oxygen [ x ] Monitoring of capnography 04/05-MD orders-monitor capnography [ x ] Diuresis 04/06-MD orders-Lasix IV CDS Signature: ___Chung Shirley RN, MSN, CDS Phone #: __[phone]____ Date: _04/09/2019____ Acute Respiratory Failure: ABG pH < 7.35 or > 7.45; Decreased oxygen saturation (<90% room air or < 95% on oxygen); PCO2 > 50 mm Hg; PO2 < 60 mm Hg; Labored or rapid respirations ARDS: Dx Criteria [[place] ARDS]: Respiratory symptoms within one week of a known clinical insult (e.g. shock, infxn, surgery, trauma) Bilateral opacities in CXR/CT Chest Not due to CHF or fluid This is a permanent part of the Medical Record documented in this encounter Plan of Treatment Not on file documented as of this encounter Visit Diagnoses Not on filedocumented in this encounter
--- OUTSIDE RECORDS SUMMARY | 2025-02-18 09:33 | XMS_ITS | Encounter Summary ---
Author Organization [employer] i[employer] Address [address] [place] [address] Care Team Providers Care Cleat Maker Name Role Phone Unavailable Primary Care Provider Unavailabl e Encounter Details Date Type Department Care Team (Late st Contact Info) Description 04/08/2019 Transcribed Document [facility] [place] [address] [place] [address] ProviderLeah MD [facility] [place], [place] [id number] Social History Tobacco Use Types Packs/Day Years Used Date Smoking Tobacco: Never Assessed Comments Unknown Sex and Gender Information Value Date Recorded Sex Assigned at Not on file Legal Sex Female 6:39 PM CDT Gender Identity Not on file Sexual Orientation Not on file documented as of this encounter Miscellaneous Notes * Cerner Conversion Note - Historical ProviderMD - 04/08/2019 11:28 AM CDT Initial Discharge Planning Entered On: 04/08/2019 11:30 EDT Performed On: 04/08/2019 11:28 EDT by JENNIFER SOLOMON, Rn-Bag Sewer Initial Assessment I Previously Documented Living Environment : Living Situation, CM: Home (04/06/19 11:59:00) Sensory and Motor Deficits: Weakness, Other: femur fx and humerous fx (04/06/19 11:59:00) Current Home Treatments and Equipment: Walker, Wheelchair (04/06/19 11:59:00) Living Situation : Home Patient Lives With : Alone, Parent(s) Is the Patient a Caregiver at Home? : No Emergency Contact #1 : Thai Card Emergency Contact #1 Phone Number : Emergency Contact #1 Relationship : Father Emergency Contact #2 : Jerry Card Emergency Contact #2 Emergency Contact #2 Relationship : Brother Enter Doctors Name : Meagan Hagan [phone] Does Patient have PCP Listed? : Yes Patient's Home Caregiver Name/Relationship : parents, Thai Card Patient's Home Caregiver Legal Guardian : No Is Guardianship Needed : No JENNIFER SOLOMON Rn-Bag Sewer - 04/08/2019 11:28 EDT Initial Assessment II Sensory and Motor Deficits : Weakness, Other: femur fx and humerous fx Current Home Treatments and Equipment : Walker, Wheelchair JENNIFER SOLOMON Rn-Bag Sewer - 04/08/2019 11:28 EDT Discharge Needs I Anticipated Discharge Date : 04/10/2019 EDT Anticipated Discharge To, CM : [facility] facility Current Home Treatment/Equipment : Current Home Treatment/Equipment Current Home Treatments and Equipment: Walker, Wheelchair (04/06/19 11:59:00) JENNIFER SOLOMON Rn-Bag Sewer - 04/08/2019 11:28 EDT Discharge Needs II Professional Skilled Services : Professional Skilled Services No qualifying data available. Needs Assistance with Transportation : Maybe Discharge Options Discussed with Patient : assisted rehabilitation, Short term rehabilitation JENNIFER SOLOMON Rn-Bag Sewer - 04/08/2019 11:28 EDT Narrative Note Narrative Note : Patient is of spouse with service. She lives independently in ADA accomidating house. JENNIFER SOLOMON Rn-Bag Sewer - 04/08/2019 11:28 EDT documented in this encounter Plan of Treatment Not on file documented as of this encounter Visit Diagnoses Not on filedocumented in this encounter
--- OUTSIDE RECORDS SUMMARY | 2025-02-18 09:33 | XMS_ITS | Encounter Summary ---
Author Organization [employer] Address [address] [place] [address] Care Team Providers Care Typesetting Machine Operator/Tender Name Role Phone Unavailable Primary Care Provider Unavailabl e Encounter Details Date Type Department Care Team (Late st Contact Info) Description 04/06/2019 Transcribed Document [facility] [place] [address] [place] [address] Provider, MD Leah [address] [place] [id number] Social History Tobacco Use Types Packs/Day Years [...] ProviderMD - 04/06/2019 8:44 AM CDT [facility] PACU Summary Primary Physician: DALE MALDONADO MD-ORT Finalized Date/Time: 04/16/19 13:10:03 Pt. Name: CAMACHO STANLEY/Sex: 1960 Female Med Rec #: [id number] Physician: EMILY STEWART MD-INT Financial #: [id number] Pt. Type: I Room/Bed: 52/1 Admit/Disch: 04/05/19 16:34:00 - 04/10/19 15:18:00 Institution: [facility] PACU Case Times Entry 1 In PACU I 04/06/19 09:04:00 Ready for PACU 04/06/19 09:33:00 Discharge Discharge from PACU 04/06/19 09:33:00 I Last Modified By: Lourdes Ramires RN 04/06/19 09:40:56 [facility] OR PACU Case Times Audit 04/06/19 09:40:56 Bander Hand: RODOLFO Modifier: [email or web address] <+> 1 Ready for PACU Discharge <+> 1 Discharge from PACU I Finalized By: Alice Flowers, RN Document Signatures Signed By: Lourdes Ramires RN 04/06/19 09:41 Alice Flowers RN 04/16/19 13:10 Unfinalized History Date/Time Username Reason for Unfinalizing Freetext Reason for Unfinalizing 04/16/19 13:09 LISET Chart Audit documented in this encounter Plan of Treatment Not on file documented as of this encounter Visit Diagnoses Not on filedocumented in this encounter
--- OUTSIDE RECORDS SUMMARY | 2025-02-18 09:33 | XMS_ITS | Encounter Summary ---
Author Organization [employer] Address [address] [place] [address] Care Team Providers Care Fish Net Maker Name Role Phone Unavailable Primary Care Provider Unavailabl e Encounter Details Date Type Department Care Team (Late st Contact Info) Description 04/10/2019 Transcribed Document [facility] [place] [address] [place] [address] ProviderLeah MD [facility] [place] [address] Social History Tobacco Use Types Packs/Day Years Used Date Smoking Tobacco: Never Assessed Comments Unknown Sex and Gender Information Value Date Recorded Sex Assigned at Not on file Legal Sex Female 6:39 PM CDT Gender Identity Not on file Sexual Orientation Not on file documented as of this encounter Miscellaneous Notes * Cerner Conversion Note - Historical ProviderMD - 04/10/2019 4:00 PM CDT Discharge Summary, PT Entered On: 04/11/2019 12:06 EDT Performed On: 04/10/2019 16:00 EDT by JORGE HUNT, PT Discharge Summary Reason for Discharge : Discharged from hospital Discharged to, Therapy : Unit, group home Discharge Summary Comment, PT : Patient met 1/3 acute PT goals. Max A x 2 supine to sit EOB x 10 min NWB R UE + NWB R LE Sit to stand with Mod A x 2 AROM x 20-25 reps D/C to [facility] for continued care and rehab on 04/10/19. JORGE HUNT, PT - 04/11/2019 12:04 EDT Warehouse Packer Goals Other PT LTG Grid Goal #1 [...] 04/20/2019 EDT 04/20/2019 EDT Goal Status : Not met Not met Not met JORGE HUNT, PT - 04/11/2019 12:04 EDT JORGE HUNT, PT - 04/11/2019 12:04 EDT JORGE HUNT, PT - 04/11/2019 12:04 EDT Electronically signed by [facility] Conversion Platform Loader Cerner at 12/26/2022 12:47 PM CDT documented in this encounter Plan of Treatment Not on file documented as of this encounter Visit Diagnoses Not on filedocumented in this encounter
--- OUTSIDE RECORDS SUMMARY | 2025-02-18 09:33 | XMS_ITS | Encounter Summary ---
Author Organization [employer] Address [address] [place] [address] Care Team Providers Care Gear Hobber Name Role Phone Unavailable Primary Care Provider Unavailabl e Encounter Details Date Type Department Care Team (Late st Contact Info) Description 04/09/2019 Transcribed Document [facility] [place] [address] [place] [address] ProviderLeah MD [facility] [place] [address] Social History Tobacco Use Types Packs/Day Years Used Date Smoking Tobacco: Never Assessed Comments Unknown Sex and Gender Information Value Date Recorded Sex Assigned at Not on file Legal Sex Female 6:39 PM CDT Gender Identity Not on file Sexual Orientation Not on file documented as of this encounter Miscellaneous Notes * Cerner Conversion Note - Historical ProviderMD - 04/09/2019 7:00 PM CDT Patch Check Entered On: 04/10/2019 1:55 EDT Performed On: 04/09/2019 19:00 EDT by Carolina Reyes, Rn-Resource Patch Check Patch Check Result : Yes Patch Check - Type of Patch : scopolamine (Transderm-Scop) Carolina Reyes Rn-Resource - 04/10/2019 1:55 EDT documented in this encounter Plan of Treatment Not on file documented as of this encounter Visit Diagnoses Not on filedocumented in this encounter
--- OUTSIDE RECORDS SUMMARY | 2025-02-18 09:33 | XMS_ITS | Encounter Summary ---
Author Organization [employer] Address [address] [place] [address] Care Team Providers Care Blintze Roller Name Role Phone Unavailable Primary Care Provider Unavailabl e Encounter Details Date Type Department Care Team (Late st Contact Info) Description 04/08/2019 Transcribed Document [facility] [place] [address] [place] [address] ProviderLeah MD [place] [address] Social History Tobacco Use Types Packs/Day Years Used Date Smoking Tobacco: Never Assessed Comments Unknown Sex and Gender Information Value Date Recorded Sex Assigned at Not on file Legal Sex Female 6:39 PM CDT Gender Identity Not on file Sexual Orientation Not on file documented as of this encounter Miscellaneous Notes * Cerner Conversion Note - Leah ProviderMD - 04/08/2019 9:37 AM CDT UM Authorization Entered On: 04/08/2019 9:37 EDT Performed On: 04/08/2019 9:37 EDT by MARITZA HERNDON RN-Utilization Review Primary Insurance Authorization Authorization and Policy Numbers : Insurance 1 Health Plan: [facility] MEDICARE ADVANTAGE Policy Number: [id number] Authorization Number: [id number] Insurance 2 Health Plan: FOR LIFE Policy Number: [id number] Authorization Number: Insurance Primary Name : [facility] Medicare Advantage Authorization Status-Primary : Awaiting callback Reference Number-Primary : [id number] pended Authorized Service Begin Date-Primary : 04/05/2019 EDT Historical Authorization Comments-Primary : Comment 1: Uploaded clinicals to [facility] Medicare via [employer]. (ELIZABETH CASSIDY RN-Utilization Review 04/06/2019 09:10) MARITZA HERNDON RN-Utilization Review - 04/08/2019 9:37 EDT Electronically signed by [employer] Community Relations Coordinator Cerner at 12/26/2022 12:46 PM CDT documented in this encounter Plan of Treatment Not on file documented as of this encounter Visit Diagnoses Not on filedocumented in this encounter
--- OUTSIDE RECORDS SUMMARY | 2025-02-18 09:33 | XMS_ITS | Encounter Summary ---
Author Organization [employer] Address [address] [place] [address] Care Team Providers Care Power Lineworker Name Role Phone Unavailable Primary Care Provider Unavailabl e Encounter Details Date Type Department Care Team (Late st Contact Info) Description 04/09/2019 Transcribed Document [facility] [place] [address] [place] [address] ProviderLeah MD [facility] [place], [place] [address] Social History Tobacco Use Types Packs/Day Years Used Date Smoking Tobacco: Never Assessed Comments Unknown Sex and Gender Information Value Date Recorded Sex Assigned at Not on file Legal Sex Female 6:39 PM CDT Gender Identity Not on file Sexual Orientation Not on file documented as of this encounter Miscellaneous Notes * Cerner Conversion Note - Leah ProviderMD - 04/09/2019 2:11 PM CDT Final Discharge Planning Entered On: 04/09/2019 14:13 EDT Performed On: 04/09/2019 14:11 EDT by JENNIFER SOLOMON, Rn-Traveling Inventory Associate Final Discharge Planning Discharge Arrangements : Patient Post-Acute Information Patient Name: CAMACHO STANLEY Gender: Female : [birth year] Age: 58 Years Armando Referral(s): Service: Organization: Business Address: Phone Number: [facility] Facility [facility] [address] [place], [address] Important Medicare Message Reviewed With : Patient Important Medicare Message Reviewed D/T : 04/09/2019 14:00 EDT Transportation Needs : Ambulance Discharge Transportation Arrangement Cmt : scheduled for 1500 Tuesday 04/10, transport #[id number] PCS form in front of chart Patient/Family Notified of Plan : Yes Is Patient Ready for Discharge? : Yes Physician Notified Patient is Ready for Discharge? : Yes Discharge To Care Management : SNF with Medicare Certification-03 JENNIFER SOOLMON, Rn-Traveling Inventory Associate - 04/09/2019 14:11 EDT Final Narrative Note Final Narrative Note : Patient has precert for SNF bed that will be available tomorrow at [facility] phone [phone], fax dc summary to [phone] JENNIFER SOLOMON Rn-Traveling Inventory Associate - 04/09/2019 14:11 EDT documented in this encounter Plan of Treatment Not on file documented as of this encounter Visit Diagnoses Not on filedocumented in this encounter
--- OUTSIDE RECORDS SUMMARY | 2025-02-18 09:33 | XMS_ITS | Clinical Summary ---
Author Organization [facility] Address [address] [place] [address] Care Team Providers Care Moid [employer] Teacher Name Role Phone Meagan Hagan MD Primary Care Provider [phone] Allergies Active Allergy Reactions Criticality Noted Date Comments Tizanidine Anaphylaxis,Unknown - Patient states they do not know rxn details High 10/16/2020 Medications ARIPiprazole (Abilify) 2 MG tablet Take 1 tablet (2 mg) by mouth every night. 6 Active cholecalciferol (Vitamin D-3) 50 MCG (2000 UT) capsule Take 1 capsule (2,000 Units) by mouth 1 (one) time each day. Active diphenoxylate-a tropine (Lomotil) 2.5-0.025 MG tablet Take 2 tablets by mouth 4 (four) times a day if needed. 1 Active ferrous sulfate 325 (65 Fe) MG tablet Active folic acid (Folvite) 1 MG tablet 1 (one) time each day. Active furosemide (Lasix) 20 MG tablet Take 1 tablet (20 mg) by mouth 1 (one) time each day. 1 Active spironolactone (Aldactone) 25 MG tablet Take 1 tablet (25 mg) by mouth 2 (two) times a day. 6 Active nystatin (Mycostatin) cream 1 Application 2 (two) times a day if needed. Active rOPINIRole (Requip) 0.5 MG tablet Take 1 tablet (0.5 mg) by mouth 3 (three) times a day if needed. Active venlafaxine XR (Effoxor-XR) 150 MG 24 hr capsule venlafaxine ER 150 mg capsule,extended release 24 hr 6 Active levothyroxine (Synthroid, Levoxyl) 150 MCG tablet Take 1 tablet (150 mcg) by mouth 1 (one) time each day in the morning. 3 Active HYDROcodone-anat taminophen (Laurier) 7.5-325 MG tablet Take 1 tablet by mouth 2 (two) times a day if needed. 3 Active olopatadine (Patanol) 0.1 % ophthalmic solution Administer 1 drop into both eyes 2 (two) times a day. Active oxyCODONE (Roxicodone) 5 MG immediate release tablet Take 1 tablet (5 mg) by mouth every 8 (eight) hours if needed for severe pain. 20 tablet 3 Active venlafaxine XR (Effexor-XR) 75 MG 24 hr capsule 3 Active Blood Glucose Monitoring Suppl kitIndications: Type 2 diabetes mellitus with hyperglycemia, without long-term current use of insulin ([facility]) Use to check blood glucose 1 times daily 1 kit 5 Active Glucose Blood (Blood Glucose Test) stripIndication s:Type 2 diabetes mellitus with hyperglycemia, without long-term current use of insulin ([facility]) Check blood glucose 1 times daily before meals 200 strip 11 Active Lancets miscIndications :Type 2 diabetes mellitus with hyperglycemia, without long-term current use of insulin ([facility]) Check blood glucose 1 times daily before meals 100 each 11 5 Active Active Problems Problem Noted Date Diagnosed Date Type 2 diabetes mellitus with hyperglycemia 01/09 Depressive disorder 01/21/2025 Other complications of proce dures, not elsewhere classified, sequela 01/21/2025 Cirrhosis of liver without ascites 01/21/2025 Severe obesity (BMI 35.0-39.9) with comorbidity 01/22/2023 Bimalleolar ankle fracture 01/19/2023 Acetabular fracture 01/19/2023 Cellulitis 01/19/2023 Declining functional status 01/16/2023 Failed orthopedic implant 12/17/2021 Candidiasis of skin 10/22/2021 Chiari malformation 10/22/2021 Chronic diarrhea 10/22/2021 Hyperlipidemia 10/22/2021 Obesity with body mass index 30 or greater 10/22 Local infection of wound 10/22/2021 Onychomycosis 10/22/2021 Lymphedema 10/22/2021 Chronic venous insufficiency of lower extremity 10/22/2021 Venous ulcer 07/30/2021 S/P reverse total shoulder arthroplasty, right 1 10/09/2018 Rotator cuff arthropathy, right 08/09/2019 Hypothyroidism (acquired) 08/09/2019 Hypoxemia associated with sleep 05/10/2017 Overview (01/21/2025): G47.36 Adhesive capsulitis of left shoulder 10/14/2016 Encounters Date Type Department Care Team Description 01/21/2025 8:00 AM EDT Office Visit [facility] Endocrinology [address] [place] [address] Roopa Martinez PA Type 2 diabetes mellitus with hyperglycemia, without long-term current use of insulin (CMS/HCC) (Primary Dx); Cirrhosis of liver without ascites, unspecified hepatic cirrhosis type (CMS/HCC) 01/21/2025 Telephone [facility] Endocrinology [address] [place] [address] Roopa Martinez PA Prior-authorization/i nsurance Verification 01/21/2025 Travel from Last 3 Months Immunizations Immunization Administration Dates Next Due Tdap 10/07/2020 Family History Medical History Relation Name Comments Hypertension Other 1 Macular degeneration Other 2 Relation Name Status Comments Other 1 Other 2 Social History Tobacco Use Types Packs/Day Years Used Date Smoking Tobacco: Former Cigarettes 2 10 1 983 - 1992 Smokeless Tobacco: Never Tobacco Cessation:Counseling Given: [...] on file Sexual Orientation Not on file Last Filed Vital Signs Vital Sign Reading Time Taken Comments Blood Pressure 97/62 01/21/2025 8:02 AM EDT Pulse 76 01/21/2025 8:02 AM EDT Temperature 36.6 C (97.8 F) 07/05/2023 11:55 AM EDT Respiratory Rate 15 01/23/2023 7:13 AM EDT Oxygen Saturation 100% 07/05/2023 11: 55 AM EDT Inhaled Oxygen Concentration - - Weight 52.5 kg (115 lb 11.9 oz) 01/21/2025 8:02 AM EDT Height 157.5 cm (5' 2 ) 01/21/2025 8:02 AM EDT Body Mass Index 21.17 01/21/2025 8:02 AM EDT Plan of Treatment Upcoming Encounters Date Type Department Care Team (Late st Contact Info) Description 04/30/2025 9:00 AM EDT Office Visit [facility] [address] [place] [address] Roopa Martinez PA [address] [address] Health Maintenance Due Date Last Done Comments [facility]-Bone Density Scan 1960 [facility]-Medicare Annual Wellness (AWV) 1960 [facility]-/Child/Adol SDOH Screenings 1960 Diabetes: Dental Exam 12/18/1969 [facility]- SDOH Screenings 12/18/1977 [facility]-Adult SDOH Screenings 12/18/1977 [facility]-Hepatitis A Vaccines (1 of 2 - Risk 2-dose series) 12/18/1978 [facility]-Pap Smear 12/18/1980 [facility]-Cervical Cancer Screening 12/18/1989 [facility]-HPV/Cotest 12/18/1989 CT Colonography 12/18/2004 Colonoscopy 12/18/2004 FIT-DNA 12/18/2004 FIT 12/18/2004 FOBT 12/18/2004 Sigmoidoscopy 12/18/2004 [facility]-Colorectal Cancer Screening 12/18/2004 [facility]-Breast Cancer Screening 12/18/2009 [facility]-Zoster Vaccines (1 of 2) 12/18/2009 [facility]-RSV Vaccine: 60+ Years or (1 - Risk 60-74 years 1-dose series) 2019 [facility]-Pneumococcal Vaccine: 50+ Years (2 of 2 - PCV) 12/07/2022 12/07/2021 [facility]-Diabetes: Hemoglobin A1C 07/16/202304/2023, 12/15/2021, 07/26/2019 [id number] Vaccine (6 - Mixed Product risk season) 2025 08/16/2024, 08/08/2023, 09/15/2021, Additional history exists [facility]-Influenza Vaccine (Season Ended) 2025 06/06/2023, 03/09/2023, 09/15/2021, Additional history exists [facility]-Depression Screening 01/21/2026 01/21/2025 [facility]-DTaP,Tdap,and Td Vaccines (3 - Td or Tdap) 05/30/2034 05/30/2024, 10/07/2020 [facility]-Hepatitis C Screening Completed 01/21/2023, 05/2023 [facility]-Obesity Intervention Completed 025, 07/05/2023, 03/22/2023, Additional history exists HPV Vaccines Aged Out No longer eligi ble based on patient's age to complete this topic [facility]-HIB Vaccines Aged Out No longer e ligible based on patient's age to complete this topic [facility]-IPV Vaccines Aged Out No longer e ligible based on patient's age to complete this topic [facility]-Rotavirus Vaccines Aged Out No lo nger eligible based on patient's age to complete this topic Procedures Procedure Name Priority Date/Time Associated Diagnosis Comments ACUTE HEPATITIS PANEL Routine 01/21/2023 3:45 AM EDT HEMOGLOBIN A1C STAT Add-on 01/16/2023 12:11 PM EDT from Last 3 Months or Most Recently Relevant to Health Maintenance Results * Hepatitis panel, acute (01/21/2023 3:45 AM EDT) Hepatitis B Surf Antigen Negative Negative 01/21/2023 6:15 AM EDT [facility] Hepatitis C Antibody Negative Negative 01/21/2023 6:15 AM EDT [facility] Hepatitis A Antibody IgM Negative Negative 01/21/2023 6:15 AM EDT [facility] Hepatitis B Core Antibody IgM Negative Negative 01/21/2023 6:15 AM EDT [facility] Blood Venous blood specimen / Unknown Venipuncture / Unknown 01/21/2023 3:45 AM EDT 01/21/2023 4:16 AM EDT us Noemy Ramos APRN, DNP LAB BLOOD ORDERABLES Final Result Performing Organization Address City/[facility] Co de Phone Number [facility] [address] [place] [address] * (ABNORMAL) Hemoglobin A1c (01/16/2023 12:11 PM EDT) Hemoglobin A1c 6.5(H) <5.7 % 01/16/2023 8:53 PM EDT [facility] Blood Venous blood specimen / Unknown Venipuncture / Unknown 01/16/2023 12:11 PM EDT 01/16/2023 12:17 PM EDT Narrative [facility] - 01/16/2023 8:53 PM EDT HA1C Interpretive Data: Diagnosis of Diabetes: Diabetic > or = 6.5% Pre-diabetic 5.7 to 6.4% Non-diabetic < or = 5.6% Glycemic Targets for Type I and Type II Diabetics: Non- Adults <7.0% Adults <6.0% Children and Adolescents <7.5% Source: [place] [employer]. Standards of medical care in diabetes,2017. Diabetes Care.2017:40 (suppl 1):S1-S135. HbA1c assay performed by an ion-exchange chromatography method that is certified traceable to the DCCT. us Rona Lyons APRN LAB BLOOD ORDERABLES Final Result Performing Organization Address City/[facility] Co de Phone Number [facility] [address] [place] [address] from Last 3 Months or Most Recently Relevant to Health Maintenance Insurance UHC MEDICARE [facility] MEDICARE Advance Directives * Full Code (Latest Code Status on File) Date Activated Date Inactivated Comments 01/16/2023 7:17 PM 01/24/2023 4:52 PM Question Answer Comments Patient has decision-making capacity? Yes Care Teams [employer] Teacher Relationship Specialty Start Date End Date Meagan Hagan MD [address] [place] [address] [address] [place] [address] PCP - General 01/22/21
--- OUTSIDE RECORDS SUMMARY | 2025-02-18 09:33 | XMS_ITS | Encounter Summary ---
Author Organization [employer] Address [address] [place] [address] Care Team Providers Care Child Care Giver Name Role Phone Unavailable Primary Care Provider Unavailabl e Encounter Details Date Type Department Care Team (Late st Contact Info) Description 04/10/2019 Transcribed Document [facility] [place] [address] [place] [address] ProviderLeah MD [address] [place] [address] Social History Tobacco Use Types Packs/Day Years Used Date Smoking Tobacco: Never Assessed Comments Unknown Sex and Gender Information Value Date Recorded Sex Assigned at Not on file Legal Sex Female 6:39 PM CDT Gender Identity Not on file Sexual Orientation Not on file documented as of this encounter Miscellaneous Notes * Cerner Conversion Note - Leah ProviderMD - 04/10/2019 2:03 PM CDT Patient Education Materials Follows: Cast or Splint Care, Adult Casts and [...] 12/28/2011 Document Revised: 08/18/2017 Document Reviewed: 08/18/2017 [employer] Patient Education ? 2019 [employer] documented in this encounter Plan of Treatment Not on file documented as of this encounter Visit Diagnoses Not on filedocumented in this encounter
--- OUTSIDE RECORDS SUMMARY | 2025-02-18 09:33 | XMS_ITS | Encounter Summary ---
Author Organization [employer] Address [address] [place] [address] Care Team Providers Care Textile Science Technician Name Role Phone Unavailable Primary Care Provider Unavailabl e Encounter Details Date Type Department Care Team (Late st Contact Info) Description 04/09/2019 Transcribed Document [facility] Family Medicine [address] [place] [address] ProviderLeah MD [facility] [place] [address] Social History Tobacco Use Types Packs/Day Years Used Date Smoking Tobacco: Never Assessed Comments Unknown Sex and Gender Information Value Date Recorded Sex Assigned at Not on file Legal Sex Female 6:39 PM CDT Gender Identity Not on file Sexual Orientation Not on file documented as of this encounter Miscellaneous Notes * Cerner Conversion Note - Historical ProviderMD - 04/09/2019 5:00 PM CDT Chart Check - Review Order Profile Entered On: 04/09/2019 18:30 EDT Performed On: 04/09/2019 17:00 EDT by Selene Medina Registered Nurse Chart Check Powerplans Initiated/Discontinued as Appropriate : Yes All Active Orders Reviewed : Yes Selene Medina, Registered Nurse - 04/09/2019 18:30 EDT documented in this encounter Plan of Treatment Not on file documented as of this encounter Visit Diagnoses Not on filedocumented in this encounter
--- OUTSIDE RECORDS SUMMARY | 2025-02-18 09:33 | XMS_ITS | Encounter Summary ---
Author Organization [email or web address] Address [address] [place] [address] Care Team Providers Care Php Mysql Web Developer Name Role Phone Unavailable Primary Care Provider Unavailabl e Encounter Details Date Type Department Care Team (Late st Contact Info) Description 04/06/2019 Transcribed Document [facility] [place] [facility] [address] [place] [address] ProviderLeah MD [address] [place] [id number] Social History Tobacco Use Types Packs/Day Years Used Date Smoking Tobacco: Never Assessed Comments Unknown Sex and Gender Information Value Date Recorded Sex Assigned at Not on file Legal Sex Female 6:39 PM CDT Gender Identity Not on file Sexual Orientation Not on file documented as of this encounter Miscellaneous Notes * Cerner Conversion Note - Leah ProviderMD - 04/06/2019 4:18 PM CDT Patient: CAMACHO DENNISON Age: 58 years Sex: Female : 1960 Associated Diagnoses: Right knee pain and swelling; Right shoulder pain and swelling; Right knee effusion; Fall; Arnold-Chiari malformation; Syringomyelia; Left sided hemiparesis; Hypertension; Hypercholesterolemia; Hypothyroid; Mitral valve prolapse; On home oxygen; Bilateral lower extremities Lymphedema; Dizziness Author: EMILY STEWART MD-INT Basic Information awake alert comfortable, asympt. , pain under control, n ???Has a Cruz catheter ???Had aspiration of her right knee today ???Had a cast placed around her right lower extremity today ???Brady a sling for her right upper extremity ???Needs a placement Review of Systems Constitutional: No fever, No chills. Eye: No discharge, No blurring, No double vision, No visual disturbances. Ear/Nose/Mouth/Throat: No nasal congestion, No sore throat. Respiratory: No shortness of breath, No cough. Cardiovascular: No chest pain, No palpitations. Gastrointestinal: No nausea, No vomiting. Genitourinary: No change in urine stream. Musculoskeletal: Negative. Integumentary: Negative. Neurologic: Alert and oriented X4. Health Status Allergies: Allergies (1) Active Reaction No Known Medication Allergies None Documented Current medications: Medications (34) Active Scheduled: (8) ARIPiprazole 2 mg tab 2 mg 1 Tab, Oral, At Bedtime atorvastatin 10 mg tab 10 mg 1 Tab, Oral, Daily carvedilol 25 mg tab 12.5 mg 0.5 Tab, Oral, BID docusate sodium 100 mg cap 100 mg 1 Cap, Oral, BID furosemide 40 mg tab 40 mg 1 Tab, Oral, Daily levothyroxine 25 mcg tab 25 mcg 1 Tab, Oral, Daily spironolactone 25 mg tab 25 mg 1 Tab, Oral, BID venlafaxine XR 150 mg cap 150 mg 1 Cap, Oral, Daily Continuous: (1) NaCl 0.45% 1,000 mL 1,000 mL, IntraVENous, 100 mL/Hr PRN: (25) acetaminophen 325 mg tab 650 [...] Hypertension Hypothyroid Physical Examination VS/Measurements Vital Measurements 04/06/2019 9:58 EDT Systolic Blood Pressure 101 mmHg Diastolic Blood Pressure 60 mmHg Mean Arterial Pressure (MAP)-BMDI 70 Temperature Source Oral Temperature Mode Fahrenheit Temperature, Fahrenheit 98 Deg F Clinical Temperature, C 36.7 Deg C Heart Rate Monitored 70 bpm Respiratory Rate 18 Breaths/Min Oxygen Saturation 99 % Oxygen Therapy Mode Nasal cannula Oxygen [...] Review / Management Results review: All Results 04/06/2019 3:51 EDT Sodium Level 137 mmol/L Potassium Level 3.6 mmol/L Chloride Level 101 mmol/L LOW Carbon Dioxide Level 29 mmol/L Anion Gap 11 Glucose Level 98 mg/dL Blood Urea Nitrogen 10 mg/dL Creatinine Level 0.55 mg/dL eGFR >60 mL/min/1.73m2 eGFR NonAfrican >60 mL/min/1.73m2 Bun/Creatinine 18.2 Calcium Level 8.5 mg/dL Protein Total 6.0 Gram/dL LOW Albumin Level 3.2 Gram/dL LOW Globulin 2.8 Gram/dL A/G Ratio 1.1 Bilirubin Total 0.8 mg/dL Alk Phos 171 Units/Liter HI AST 35 Units/Liter ALT 25 Units/Liter WBC 8.6 K/uL RBC 3.14 Million/uL LOW Hgb 10.5 Gram/dL LOW Hct 33.2 % LOW MCV 105.7 fL HI MCH 33.4 pg HI MCHC 31.6 Gram/dL LOW Platelet Count 187 K/uL MPV 9.5 fL RDW 15.5 % HI Neut % 67.3 % Neut # 5.81 K/uL Lymph % 20.9 % Lymph # 1.80 K/uL [place] % 8.7 % [place] # 0.75 K/uL Eos % 2.0 % Eos # 0.17 K/uL Baso % 0.6 % Baso # 0.05 K/uL Slide Review No IG# 0 x10(3)/uL IG% 0 % 04/05/2019 13:26 EDT Sodium Level 135 mmol/L LOW Potassium Level 4.1 mmol/L Chloride Level 101 mmol/L LOW Carbon Dioxide Level 29 mmol/L Anion Gap 9 Glucose Level 89 mg/dL Blood Urea Nitrogen 7 mg/dL Creatinine Level 0.60 mg/dL eGFR >60 mL/min/1.73m2 eGFR NonAfrican [...] 15.0 % LOW Lymph # 1.31 K/uL [place] % 8.4 % [place] # 0.74 K/uL Eos % 0.9 % LOW Eos # 0.08 K/uL Baso % 0.2 % Baso # 0.02 K/uL Slide Review No IG# 0 x10(3)/uL IG% 1 % PT 10.9 Second(s) INR 1.1 PTT <22.0 Second(s) LOW . Condition: Stable. Impression and Plan [...] blood glucose, and urine output. pain control, fall risk precautions, hydration, DVT prophylaxis, close monitoring fluid and electrolytes, scheduling when necessary nebs, stress ulcer prophylaxis, needs a placement. documented in this encounter Plan of Treatment Not on file documented as of this encounter Visit Diagnoses Not on filedocumented in this encounter
--- OUTSIDE RECORDS SUMMARY | 2025-02-18 09:33 | XMS_ITS | Continuity of Care Document ---
Author Organization [facility] Address [address] [facility], [address] [place] [address] Care Team Providers Care Buckle Attacher Name Role Phone [facility] Referring Provider DANNI LANGLEY Referring Provider DALE MALDONADO Referring Provider [phone] Assessment Encounter Date Assessment Date Assessment LastModified by Organization Details LastModified Time 01/09/2025 01/09/2025 Tiffanie follows up from her recent emergent hospitalization where she was admitted with glucose levels over 500. She also had a urinary tract infection that was treated. She was started on insulin and now finds that she is developing hypoglycemic reactions. Her diet when the glucose levels elevated so high was primarily chocolate milk and sweet tea. Now she has stopped those beverages the glucose has improved. She has multiple comorbidities with the cirrhosis and marked splenomegaly resulting in thrombocytopenia. Her bruising is chronic and she has had more difficulty managing even in her handicapped home. She has had some difficulty drawing up the insulin into syringes as well. At this point she would likely benefit from endocrinology referral. Today's A1C is 8.8%. Potassium is slightly reduced and we note her lasix was recently changed to Bumex. She is taking potassium, but cut her spironolactone to once daily. We will advise her to increase that back to twice daily. Liver function tests remain elevated chronically. She no longer drinks alcohol but did in the past. She has also been losing a significant amount of weight but was too weak to stand to weigh today. Her BMI in November was normal at 23. Not available 01/12/2025 12:35:38 Plan of Treatment Reminders Order Date Submit Date Provider Last Modified By Organization Details Last Modified Time Details Appointments None recorded. Lab HbA1c (hemoglobin A1c), blood 2024 025 [facility], [address], [place], [address], 09:14:36 CMP, serum or plasma 2024 025 [facility], [address], [place], [address], 09:14:35 Referral endocrinolo gy, diabetes & metabolism specialist referral 2024 025 tatyana n5 [facility], [address], [place], [address], 17:30:10 Procedures None recorded. Surgeries None recorded. Imaging None recorded. Medication Orders bumetanide 1 mg tablet 2024 025 [id number], [address], [place], [place], [id number], 16:13:04 Patient TargetsNo targets recorded. Patient InstructionsNo instructions recorded. 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 Active Not Available [facility] 3 04:05:44 Chiari malformati on 776140444 Active Not Available [facility] 3 04:05:44 Hypertensi ve disorder 66236635 Active Not Available [facility] 3 04:05:44 Hypothyroi dism 72340733 Active Not Available [facility] 3 04:05:44 Fatigue 86457337 Active Not Available [facility] 3 04:05:44 Local infection of wound 39478096 Active Not Available [facility] 3 04:05:44 Chronic diarrhea 375319373 Active Not Available [facility] 3 04:05:43 Hyperlipid emia 55749061 Active Not Available [facility] 3 04:05:44 Onychomyco sis 279663920 Active Not Available [facility] 3 04:05:44 Candidiasi s of skin 55413627 Active Not Available [facility] 3 04:05:44 Infection of skin and/or subcutaneo us tissue 63870823 Active Not Available [facility] 3 04:05:43 Body mass index 30+ - obesity 562403723 Active Not Available [facility] 3 04:05:43 Intermitte nt urinary incontinen ce 871654450 Active 2016 Not Available [facility] 3 04:05:44 Adhesive capsulitis of left shoulder 2512827224658 07 Active 2016 Not Available [facility] 3 04:05:44 Sleep related hypoxemia 6709369959904 02 Active 2016 G47.36 Not Available [facility] 3 04:05:44 Fracture of femur 49256617 Active 2018 Not Available [facility] 3 04:05:44 Fracture of humerus 06771443 Active 2018 Not Available [facility] 3 04:05:44 Left hemiparesi s 129271459 Active Not Available [facility] 3 04:05:44 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 catherine 1800524043538 8 Active Not Available [facility] 3 04:05:43 Syringomye keegan 103307726 Active Not Available [facility] 3 04:05:43 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 12:32:00 Problem Notes None recorded. Procedures Surgical History Date Name Laterality Status Provider Name and Address Organization Details Recorded Time 12/18/19 22 repair of shoulder completed Meagan Hagan MD [address] [address], [facility] 05/09/2022 14:14:30 10/15/19 21 open reduction of fracture with internal fixation completed Meagan Hagan MD [address], [address], [facility] 04/11/2021 19:45:26 04/06/20 19 procedure on knee completed Meagan Hagan MD [address], [address], [place] [facility] 12/07/2022 23:56:52 08/11/20 14 Colonoscopy completed Meagan Hagan MD [address], [address], [facility] 11/07/2014 14:40:37 09/11/19 12 Other completed [facility] 11/07/2014 13:57:35 09/11/19 03 operation on brain completed Meagan Hagan MD [address], [address], [facility] 05/11/2022 00:07:17 09/11/18 97 Other completed Trinidad Turner [facility] 11/07/2014 13:57:35 reverse prosthetic total arthroplasty of right shoulder completed Meagan Hagan MD [address], [address], [facility] 11/06/2019 21:36:32 Imaging Results None recorded. Procedure Notes None recorded. Medical Equipment None Reported. Allergies Allergen ID Allergen Name Allergen Category Reaction Reaction Severity Criticality Documentation Date Start Date Code Code System Note Provider Name and Address Organization Details Recorded Time 08755 Zanaflex medicatio n anaphylax is severe Not available 10/19/20202020 88793 6 [facility] 1 10:44:08 66132 Product containin g 3-hydroxy -3-methyl glutaryl- coenzyme A reductase inhibitor (product) medicatio n myalgias (muscle pain) Not available Not available 06/07/2023 96263 009 SNOMED Meagan Hagan MD [address], [address], [facility] 3 19:51:38 15200 permethri n medicatio n rash Not available high 08/12/2024 16559 RxNorm Meagan Hagan MD [address], [address], [facility] 4 17:09:53 Medications Name Sig Start Date Stop Date Status Note LastModified by Organization Details LastModified Time Prescript ion - Clarifica tion 05/18 completed Not Available Not Available Not Available losartan 50 mg tablet Take 1 tablet(s ) every day by oral route for 30 days. 06/28 completed Not Available Not Available Not Available cyclobenz aprine 10 mg tablet TAKE 1 TABLET BY MOUTH THREE TIMES DAILY NEEDED 06/11 completed Not Available Not Available Not Available amoxicill in 500 mg capsule TAKE 1 CAPSULE BY MOUTH THREE TIMES DAILY FOR 10 DAYS 12/06 completed Not Available Not Available Not Available furosemid e 40 mg tablet TAKE ONE TABLET BY MOUTH EVERY DAY 06/11 completed Not Available Not Available Not Available methocarb apollo 500 mg tablet active Not Available Not Available No t Available levothyro xine 137 mcg tablet TAKE ONE TABLET BY MOUTH EVERY MORNING active Not Available Not Available No t Available carvedilo l 25 mg tablet Take 0.5 tablets twice a day by oral route for 90 days. 07/27 completed Not Available Not Available Not Available potassium chloride ER 10 mEq capsule,e xtended release Take 1 capsule every day by oral route for 90 days. 11/07 completed Not Available Not Available Not Available carvedilo l 6.25 mg tablet Take 1 tablet twice a day by oral route for 90 days. 11/30 completed Not Available Not Available Not Available venlafaxi ne ER 75 mg capsule,e xtended release 24 hr Take 1 capsule every day by oral route in the morning for 90 days. 2024 active Not Available Not Available Not Avai lable doxycycli ne hyclate 100 mg capsule TAKE ONE CAPSULE BY MOUTH TWICE DAILY FOR 7 DAYS 06/11 completed Not Available Not Available Not Available atorvasta tin 20 mg tablet decrease to 10 mg active Not Available Not Available No t Available venlafaxi ne 75 mg tablet TAKE ONE TABLET BY MOUTH EVERY AM active Not Available Not Available No t Available citalopra m 40 mg tablet active Not Available Not Available Not Available Vitamin C 500 mg tablet TAKE ONE TABLET BY MOUTH EVERY MORNING active Not Available Not Available No t Available triazolam 0.25 mg tablet TAKE 1 TABLET BY MOUTH AT BEDTIME THE NIGHT BEFORE PROCEDUR E. TAKE 1 TABLET 1 HOUR BEFORE DENTAL APPOINTM ENT. BRING THIRD TABLET WITH YOU. DO NOT DRIVE ON THIS MEDICATI ON 12/06 completed Not Available Not Available Not Available atorvasta tin 10 mg tablet TAKE 1 TABLET BY MOUTH EVERY DAY 11/06 completed Not Available Not Available Not Available ibuprofen 800 mg tablet TAKE 1 TABLET BY MOUTH THREE TIMES DAILY WITH FOOD 12/05 completed Not Available Not Available Not Available Lidocaine Viscous 2 % mucosal solution APPLY 2 ML TO AFFECTED AREA EVERY 2 HOURS NEEDED FOR PAIN 12/05 completed Not Available Not Available Not Available ofloxacin 0.3 % eye drops INSTILL 1 DROP INTO AFFECTED EYE(S) BY OPHTHALM IC ROUTE 4 TIMES PER DAY PRN 12/06 completed Not Available Not Available Not Available fluconazo le 150 mg tablet TAKE 1 TABLET BY MOUTH DAILY 11/11 completed Not Available Not Available Not Available valacyclo vir 1 gram tablet TAKE 1 TABLET BY MOUTH THREE TIMES DAILY FOR 7 DAYS 06/11 completed Not Available Not Available Not Available hydrocodo ne 5 mg-acetam inophen 325 mg tablet TAKE ONE TABLET BY MOUTH EVERY 6 HOURS NEEDED FOR PAIN MAY CAUSE DROWSINE SS 12/05 completed Not Available Not Available Not Available ondansetr on HCl 4 mg tablet 11/30 completed Not Available Not Available Not Available Synthroid 125 mcg tablet Take 1 tablet every day by oral route for 90 days. 06/11 completed Not Available Not Available Not Available prednison e 20 mg tablet TAKE 1 TABLET BY MOUTH TWICE DAILY 12/06 completed Not Available Not Available Not Available alendrona te 70 mg tablet Take 1 tablet every week by oral route as directed for 90 days. active has not been taking but still has some and will resume Not Available Not Available Not Available metoprolo l succinate ER 100 mg tablet,ex tended release 24 hr active Not Available Not Available Not Available Lantus U-100 Insulin 100 unit/mL subcutane ous solution INJECT 10 UNITS SUBCUTAN EOUSLY ONCE daily AT 1000pm active Not Available Not Available No t Available permethri n 5 % topical cream 11/11 completed Not Available Not Available Not Available venlafaxi ne ER 150 mg capsule,e xtended release 24 hr TAKE 1 CAPSULE BY MOUTH EVERY DAY AT BEDTIME 2024 active Not Available Not Available Not Avai lable diphenoxy late-atro pine 2.5 mg-0.025 mg tablet TAKE 2 TABLETS BY MOUTH FOUR TIMES DAILY NEEDED 12/05 completed Not Available Not Available Not Available amlodipin e 5 mg tablet active Not Available Not Available Not Available sulfameth oxazole 800 mg-trimet hoprim 160 mg tablet TAKE ONE TABLET BY MOUTH TWICE DAILY FOR 10 DAYS -- FINISH ALL MEDICINE -- 10/01 /2024 completed Not Available Not Available Not Available hydrocodo ne 10 mg-acetam inophen 325 mg tablet TAKE 1 TABLET BY MOUTH TWICE DAILY 11/30 completed Not Available Not Available Not Available omeprazol e 40 mg capsule,d elayed release TAKE 1 CAPSULE BY MOUTH EVERY DAY NEEDED 10/26 completed Not Available Not Available Not Available tramadol 50 mg tablet TAKE 1 TABLET BY MOUTH EVERY 6 HOURS NEEDED 12/06 completed Not Available Not Available Not Available spironola ctone 25 mg tablet TAKE 1 TABLET BY MOUTH TWICE DAILY NEEDED 2024 active Not Available Not Available Not Avai lable levothyro xine 25 mcg tablet TAKE 1 TABLET BY MOUTH ONCE DAILY 12/01 completed Not Available Not Available Not Available levothyro xine 75 mcg tablet TAKE 2 TABLETS BY MOUTH EVERY DAY 12/07 completed Not Available Not Available Not Available Synthroid 175 mcg tablet Take 1 tablet every day by oral route. 06/06 completed Not Available Not Available Not Available Dulcolax (bisacody l) 10 mg rectal supposito ry Insert 1 supposit ory every day by rectal route as needed. 11/06 completed Not Available Not Available Not Available clonidine HCl 0.2 mg tablet active Not Available Not Available No t Available hydrocodo ne 10 mg-acetam inophen 500 mg tablet active Not Available Not Available Not Available alprazola m 0.25 mg tablet Take 1 tablet twice a day by oral route as needed for 30 days. 11/06 completed Not Available Not Available Not Available potassium chloride ER 20 mEq tablet,ex tended release(p art/cryst ) TAKE ONE TABLET BY MOUTH EVERY MORNING active Not Available Not Available No t Available amitripty line 25 mg tablet active Not Available Not Available No t Available prednisol one acetate 1 % eye drops,arnoldo pension INSTILL 1 DROP INTO THE AFFECTED EYE 4 TIMES A DAY FOR 1 WEEK active Not Available Not Available No t Available furosemid e 80 mg tablet TAKE 1 TABLET BY MOUTH EVERY DAY IN THE MORNING 01/09 completed Not Available Not Available Not Available ciproflox acin 0.3 % eye drops INSTILL 1 DROP INTO AFFECTED EYE(S) BY OPHTHALM IC ROUTE EVERY 2 HOURS WHILE AWAKE FOR 2 DAYS THEN 1 DROP EVERY 4 HRS WHILE AWAKE FOR 5 DAYS 11/30 completed Not Available Not Available Not Available OneTouch Ultra Test strips TEST GLUCOSE ONE TIME DAILY 07/25 completed Not Available Not Available Not Available ascorbic acid (vitamin C) 250 mg tablet TAKE 1 TABLET BY MOUTH EVERY DAY AT DINNER active Not Available Not Available No t Available gemfibroz il 600 mg tablet 1 po daily active Not Available Not Available No t Available levothyro xine 50 mcg tablet active Not Available Not Available Not Available hydrocodo ne 7.5 mg-acetam inophen 325 mg tablet TAKE 1 TABLET BY MOUTH TWICE DAILY NEEDED 12/05 completed Not Available Not Available Not Available cephalexi n 500 mg capsule TAKE 2 CAPSULES BY MOUTH TWICE DAILY FOR 10 DAYS active Not Available Not Available No t Available erythromy harmony 5 mg/gram (0.5 %) eye ointment APPLY A SMALL AMOUNT TO THE CONER OF THE RIGHT EYE 2 TIMES A DAY FOR 1 WEEK 06/11 completed Not Available Not Available Not Available venlafaxi ne 37.5 mg tablet 1 po bid active Not Available Not Available N ot Available esomepraz ole magnesium 40 mg capsule,d elayed release Take 1 capsule every day by oral route for 90 days. 07/25 completed only if needed Not Available Not Available Not Available nitrofura ntoin macrocrys yan 100 mg capsule TAKE 1 CAPSULE BY MOUTH EVERY 12 HOURS WITH MEALS FOR 7 DAYS active Not Available Not Available No t Available ropinirol e 0.5 mg tablet TAKE 1 TABLET BY MOUTH THREE TIMES DAILY NEEDED 12/05 completed Not Available Not Available Not Available nystatin 100,000 unit/gram topical cream APPLY TOPICALL Y TO THE AFFECTED AREA TWICE DAILY NEEDED active Not Available Not Available No t Available olopatadi ne 0.1 % eye drops INSTILL 1 DROP INTO AFFECTED EYE(S) BY OPHTHALM IC ROUTE 2 TIMES PER DAY AT AN INTERVAL OF 6 TO 8 HOURS 12/05 completed Not Available Not Available Not Available fluoromet holone 0.1 % eye drops,arnoldo pension SHAKE LIQUID AND INSTILL 1 DROP IN BOTH EYES FOUR TIMES DAILY FOR 2 WEEKS 06/11 completed Not Available Not Available Not Available promethaz ine 25 mg tablet TAKE 1 TABLET BY MOUTH EVERY 6 HOURS NEEDED 12/05 completed Not Available Not Available Not Available levothyro xine 150 mcg tablet TAKE 1 TABLET BY MOUTH EVERY DAY IN THE MORNING active Not Available Not Available No t Available mupirocin calcium 2 % topical cream 11/30 completed Not Available Not Available Not Available bumetanid e 1 mg tablet TAKE 1 TABLET BY MOUTH EVERY DAY active Not Available Not Available No t Available folic acid 1 mg tablet TAKE 1 TABLET BY MOUTH ONCE DAIILY 12/07 completed Not Available Not Available Not Available hydroxyzi ne HCl 25 mg tablet TAKE 1 TO 2 TABLETS BY MOUTH AT BEDTIME NEEDED FOR INSOMNIA active Not Available Not Available No t Available levothyro xine 200 mcg tablet TAKE 1 TAB BY MOUTH EVERY MORNING ON AN EMPTY STOMACH 10/16 completed Not Available Not Available Not Available mupirocin 2 % topical ointment APPLY SMALL AMOUNT TOPICALL Y TO THE AFFECTED AREA THREE TIMES DAILY active Not Available Not Available No t Available furosemid e 20 mg tablet TAKE 1 TABLET BY MOUTH EVERY DAY NEEDED 04/05 completed Not Available Not Available Not Available gabapenti n 100 mg capsule Take 1 capsule 3 times a day by oral route as needed for 30 days. 08/08 completed Not Available Not Available Not Available ergocalci ferol (vitamin D2) 1,250 mcg (50,000 unit) capsule 1 twice week active Not Available Not Available No t Available lotepredn ol etabonate 0.5 % eye drops,arnoldo pension 06/11 completed Not Available Not Available Not Available dexametha sone sodium phosphate 4 mg/mL injection solution Inject 1 mL by intramus cular route. 11/11 completed Not Available Not Available Not Available ibuprofen 600 mg tablet TAKE 1 TABLET BY MOUTH TWICE A DAY IF NEEDED 10/26 completed Not Available Not Available Not Available polyethyl robby glycol 3350 17 gram/dose oral powder DISSOLVE 17 GRAMS OF POWDER INTO 4 TO 8 OUNCES OF WATER, JUICE, SODA, COFFEE, OR TEA THEN DRINK TWICE DAILY 06/11 completed Not Available Not Available Not Available methylpre dnisolone 4 mg tablets in a dose pack TAKE DIRECTED 08/12 completed Not Available Not Available Not Available ferrous sulfate 325 mg (65 mg iron) tablet,de layed release Take 1 tablet every day by oral route for 90 days. 11/30 completed Not Available Not Available Not Available losartan 50 mg-hydroc hlorothia zide 12.5 mg tablet Take 1 tablet every day by oral route. 07/18 completed Not Available Not Available Not Available losartan 100 mg tablet active Not Available Not Available Not Available colestipo l 1 gram tablet Take 1 tablet twice a day by oral route for 90 days. 12/06 completed only as needed; does not need if taking narcotic s Not Available Not Available Not Available doxycycli ne hyclate 100 mg tablet TAKE 1 TABLET BY MOUTH TWICE DAILY FOR 1 DOSE. TAKE WITH A FULL GLASS OF WATER AND DO NOT LIE DOWN FOR AT LEAST 30 MINUTES AFTER. 01/27 completed Not Available Not Available Not Available nystatin powder under breasts bid prn 07/27 completed Not Available Not Available Not Available diazepam 5 mg tablet active Not Available Not Available Not Available amoxicill in 875 mg-potass ium clavulana te 125 mg tablet TAKE 1 TABLET BY MOUTH TWICE DAILY FOR 1 DOSE 01/27 completed Not Available Not Available Not Available Ventolin HFA 90 mcg/actua tion aerosol inhaler only as needed and has not needed it 10/17 completed Not Available Not Available Not Available magnesium 250 mg (as magnesium oxide) tablet Take 1 tablet every day by oral route for 90 days. active Not Available Not Available No t Available oxycodone 5 mg tablet Take 1 tablet twice a day by oral route as needed. 06/06 completed Not Available Not Available Not Available Vitamin 27 mg iron-0.8 mg tablet TAKE ONE TABLET BY MOUTH EVERY DAY AT 500pm active Not Available Not Available No t Available enoxapari n 40 mg/0.4 mL subcutane ous syringe 03/05 completed Not Available Not Available Not Available cyclobenz aprine 5 mg tablet 11/11 completed Not Available Not Available Not Available cholestyr amine (with sugar) 4 gram oral powder active Not Available Not Available Not Available Crestor 40 mg tablet active Not Available Not Available Not Available epinastin e 0.05 % eye drops INSTILL 1 DROP IN BOTH EYES TWICE DAILY active Not Available Not Available No t Available nitrofura ntoin monohydra te/macroc rystals 100 mg capsule Take 1 capsule every 12 hours by oral route with meals for 7 days. 02/17 completed Not Available Not Available Not Available Nyamyc 100,000 unit/gram topical powder apply under breasts bid prn 12/06 completed Not Available Not Available Not Available chlorhexi dine gluconate 0.12 % mouthwash SWISH 15 ML IN THE MOUTH FOR 2 MINUTES TWICE DAILY AFTER BRUSHING TEETH THEN SPIT OUT. 06/11 completed Not Available Not Available Not Available Vitamin D3 1000 units po daily active Not Available Not Available No t Available Calcium 600 + D(3) 1 po daily active Not Available Not Available No t Available aripipraz ole 2 mg tablet TAKE ONE TABLET BY MOUTH EVERY NIGHT active Not Available Not Available No t Available quetiapin e 50 mg tablet active Not Available Not Available Not Available MoviPrep 100 gram-7.5 gram-2.69 1 gram oral powder packet active Not Available Not Available Not Available calcium 600 mg (as carbonate )-vitamin D3 10 mcg (400 unit) tablet TAKE ONE TABLET BY MOUTH EVERY MORNING active Not Available Not Available No t Available ferrous sulfate 324 mg (65 mg iron) tablet,de layed release TAKE ONE TABLET BY MOUTH EVERY NIGHT active Not Available Not Available No t Available FeroSul 325 mg (65 mg iron) tablet TAKE 1 TABLET BY MOUTH DAILY AT DINNER active Not Available Not Available No t Available Lantus Solostar U-100 Insulin 100 unit/mL (3 mL) subcutane ous pen Inject 10 units every day by subcutan eous route for 30 days. 2024 active Not Available Not Available Not Avai lable oxycodone 10 mg tablet Take 1 tablet every 4 hours by oral route. 11/06 completed Not Available Not Available Not Available diclofena c 1 % topical gel APPLY 2 GRAMS TOPICALL Y TO THE AFFECTED AREA FOUR TIMES DAILY active Not Available Not Available No t Available Eye Itch Relief 0.025 % (0.035 %) drops INSTILL 1 DROP INTO BOTH EYES 2 TIMES PER DAY 06/11 completed Not Available Not Available Not Available cholecalc iferol (vitamin D3) 50 mcg (2,000 unit) capsule TAKE 1 CAPSULE BY MOUTH ONCE DAILY 11/30 completed Not Available Not Available Not Available Calmosept ine 0.44 %-20.6 % topical ointment APPLY TO BUTTOCKS 3 TIMES A DAY IF NEEDED active Not Available Not Available No t Available Xifaxan 550 mg tablet TAKE ONE TABLET BY MOUTH TWICE DAILY 12/04 completed Not Available Not Available Not Available Adult Multivita min Gummies 07/27 completed Not Available Not Available Not Available BD Insulin Syringe Ultra-Fin e 1 mL 31 gauge x 01/24 USE DIRECTED EVERY DAY active Not Available Not Available No t Available Kerydin 5 % topical solution with applicato r APPLY TO AFFECTED TOENAIL( S) BY TOPICAL ROUTE ONCE DAILY One Drop 04/11 completed Not Available Not Available Not Available Movantik 25 mg tablet Take 1 tablet every day by oral route. 11/06 completed Not Available Not Available Not Available Vitals Date Recorded Body height Heart rate Oxygen saturation Oxygen saturation in Arterial blood by Pulse oximetry Body temperature Systolic blood pressure Diastolic blood pressure Provider Name and Address Organization Details Last Updated DateTime 5 160.02 cm 93 /min 98 % 98 % 97.9 [degF] 118 mm[Hg] 79 mm[Hg] [facility] 5 15:00:10 Social History Question Answer Notes LastModified by Organizat ion Details LastModified Time Tobacco Smoking Status Never Smoker Trinidad [facility] 11/07/2014 13:57:35 Do You Have An Advance Directive? Yes Information not available 11/07/2014 What Is Your Level Of Caffeine Consumption? Moderate Information not available 11/07/2014 Diabetes Yes Information no t available 06/13/2024 What Type Of Diet Are You Following? REGULAR Information not available 11/07/2014 Education Post Graduate Information not available 11/07/2014 What Is The Highest Grade Or Level Of School You Have Completed Or The Highest Degree You Have Received? [id number] Information not available 12/07/2021 High Blood Pressure Yes Information not available 11/07/2014 High Cholesterol Yes Informat ion not available 11/07/2014 Marital Status Informatio n not available 11/07/2014 What Was The Date Of Your Most Recent Tobacco Screening? 11/11/2024 Information not available 11/13/2024 How Many Children Do You Have? 0 Information not available 11/07/2014 What Is Your Relationship Status? brice Information not available 12/07/2021 How Much Tobacco Do You Smoke? No Information not available 04/11/2019 General Stress Level High Information not available 11/07/2014 Sex: Female Functional Status Question Answer Note LastModified by Organizat ion Details LastModified Time Do you use any illicit or recreational drugs? No [email or web address] Information not available 12/06/2023 What is your level of alcohol consumption? Occasional quit all alcohol in 2018 and then when she got the purewick she then started having an evening drink before bed. Now she has stopped completely again. Information not available 12/05/2023 What is your exercise level? Occasional Information not available 11/07/2014 Mental Status None recorded. Family History Relationship Description Onset Age of this Age Resolved Age Notes LastModified by Organization Details LastModified Time Mother Alzheimer's disease [email or web address] Not available 2015 13:48:18 Father Heart disease Not available 2015 13:48:18 Notes:diabetic in family Medical History Condition Response Coronary Artery Disease N Gout N Kidney Stones N Blood Diseases N Hyperthyroidism N Depression Y Hypothyroidism Y COPD N Developmental or Behavioral Disorders N Eczema, Hives or other skin conditions N Anxiety Disorder Y Muscle, Joint, or Bone Problems Y Vision or Eye Problems Y Arthritis Y Serious Illness or Injuries Y Congenital Anomalies Y Cancer N Stroke N Bladder or Kidney Problems N Hospital Admission other than Y High Cholesterol Y Liver Disease N Fibromyalgia N Kidney Disease N Heart Problems N Ear or Hearing Problems N ADD or ADHD N Thyroid Problems Y Skin Problems Y Anemia Y Constipation N Diabetes N Bedwetting N Seizures/Epilepsy N Tuberculosis N Diverticulitis N Allergies Y Asthma N GERD/Reflux N Heart Disease N Pulmonary Embolism N Hypertension Y Osteoporosis N Chicken Pox Y Gynecological History Statement/Question Response If Post Menopausal, Age at Menopause 39 Obstetrics History GPAL:G 0 P 0 0 0 0 Immunizations Vaccine Type Date Status Note Provider Nam e and Address Organization Details Recorded Time Influenza, recombinant, quadrivalent, PF 0 completed Not Available [facility] 06/12/2020 11:51:39 pneumococcal polysaccharide PPV23 2 completed [facility] 12/07/2021 15:47:58 Influenza, recombinant, quadrivalent, PF 3 completed Jennifer [facility] 03/09/2023 14:45:02 Influenza, split virus, quadrivalent, PF 3 completed Meagan Hagan MD [address] [address], [place], [address], [facility] 06/07/2023 16:46:05 COVID-19, mRNA, LNP-S, bivalent, PF, 30 mcg/0.3 mL dose 3 completed Meagan Hagan MD [address] [address], [place], [address], [facility] 08/09/2023 16:35:41 COVID-19, mRNA, LNP-S, PF, 30 mcg/0.3 mL dose 1 completed Not Available [facility] 06/13/2023 04:05:44 COVID-19, mRNA, LNP-S, PF, 30 mcg/0.3 mL dose 1 completed Not Available [facility] 06/13/2023 04:05:44 COVID-19, mRNA, LNP-S, PF, 100 mcg/0.5mL dose or 50 mcg/0.25mL dose 2 completed Not Available [facility] 06/13/2023 04:05:44 Influenza, split virus, quadrivalent, preservative 2 completed Not Available [facility] 06/13/2023 04:05:44 Tdap 4 completed Meagan Hagan MD [address] [facility] [address], [place], [address], [facility] 06/03/2024 12:09:58 Past Encounters Encounter ID Performer Location Encounter Start Date Encounter Closed Date Diagnosis/Indication Diagnosis SNOMED-CT Code Diagnosis ICD10 Code Diagnosis Note [id number] Meagan Hagan MD [facility] [address] [id number] 12/10/2024 14:22:23 12/12/2024 08:57:30 Hyperglycemia due to diabetes mellitus 289121261 E11.65 Incontinence 74600999 R3 2 Recurrent falls 61630044 2 R29.6 [id number] Meagan Hagan MD [facility] [address] [id number] 01/09/2025 14:56:20 01/13/2025 08:57:32 Uncontrolled type 2 diabetes mellitus 349612773 E11.65 Essential hypertension 87572296 I10 Cirrhosis of liver 007 K74.69 Health Concerns Section Related Observation LastModified by Organization Detai ls LastModified Time None Recorded Concern Status LastModified by Organization Details LastModified Time None Recorded Payers Encounter Date Sequence Insurance Name Policy Number Policy Cantu Covered Member ID Cantu Member ID Guarantor Name 01/09/2025 1 [facility] - MEDICARE ADVANTAGE (MEDICARE REPLACEMENT PPO) [id number] Tiffanie Dennison [id number] Tiffanie Dennison 01/09/2025 2 [employer] ( - MEDICARE SUPPLEMENT) Tirso Juma [id number] Tiffanie Dennison Notes Date Note Type Note Provider Name and Address Organization Details Recorded Time 01/09/2025 text/html she had been feeling terrible when she was last here and apparently had only been drinking chocolate milk and sweet tea. Her sugars were over 500. She went to [facility] and was diagnosed with a significant UTI. She was then sent to a rehab at [facility]. She was fed high carb diet although she was not supposed to have such a diet. She has been home for about a week. She is concerned about her insulin and is using only 10 units and seems to be having low sugar reactions with sweating and drooling every night. But her glucometer shows that her average is typically between 140 and 160. She is clearly brittle and at this point an endocrinology referral is advised. She will continue a low dose of Lantus.She has also cut out all the sugars so she is much better controlled.She continues to also have redness and possible cellulitis on the left gluteal/hip area that is improving with the Keflex. Meagan Hagan MD [address] [facility] [address], [place], [address], [facility] 01/12/2025 12:35:55 OBGyn Episode No OBEpisode recorded.
--- OUTSIDE RECORDS SUMMARY | 2025-02-18 09:33 | XMS_ITS | Encounter Summary ---
Author Organization [employer] Address [address] [place] [address] Care Team Providers Care Utility Worker Roller Shop Name Role Phone Unavailable Primary Care Provider Unavailabl e Encounter Details Date Type Department Care Team (Late st Contact Info) Description 04/06/2019 Transcribed Document [facility] [place] [address] [place] [address] ProviderLeah [place] [facility] [address] Social History Tobacco Use Types Packs/Day Years Used Date Smoking Tobacco: Never Assessed Comments Unknown Sex and Gender Information Value Date Recorded Sex Assigned at Not on file Legal Sex Female 6:39 PM CDT Gender Identity Not on file Sexual Orientation Not on file documented as of this encounter Miscellaneous Notes * Cerner Conversion Note - Historical ProviderMD - 04/06/2019 5:00 AM CDT Chart Check - Review Order Profile Entered On: 04/06/2019 6:01 EDT Performed On: 04/06/2019 5:00 EDT by Cinda Mckenzie RN Chart Check Powerplans Initiated/Discontinued as Appropriate : Yes All Active Orders Reviewed : Yes Cinda Mckenzie RN - 04/06/2019 6:01 EDT documented in this encounter Plan of Treatment Not on file documented as of this encounter Visit Diagnoses Not on filedocumented in this encounter
--- OUTSIDE RECORDS SUMMARY | 2025-02-18 09:33 | XMS_ITS | Encounter Summary ---
Author Organization [employer] Address [address] [place] [address] Care Team Providers Care Band Sewer Name Role Phone Unavailable Primary Care Provider Unavailabl e Encounter Details Date Type Department Care Team (Late st Contact Info) Description 04/07/2019 Transcribed Document [facility] [place] [address] [place] [address] ProviderLeah MD [address] [place] [id number] Social History Tobacco Use Types Packs/Day Years Used Date Smoking Tobacco: Never Assessed Comments Unknown Sex and Gender Information Value Date Recorded Sex Assigned at Not on file Legal Sex Female 6:39 PM CDT Gender Identity Not on file Sexual Orientation Not on file documented as of this encounter Miscellaneous Notes * Cerner Conversion Note - Leah ProviderMD - 04/07/2019 7:07 PM CDT Patient: CAMACHO DENNISON Age: 58 years Sex: Female : 1960 Associated Diagnoses: Right knee pain and swelling; Right shoulder pain and swelling; Right knee effusion; Fall; Arnold-Chiari malformation; Syringomyelia; Left sided hemiparesis; Hypertension; Hypercholesterolemia; Hypothyroid; Mitral valve prolapse; On home oxygen; Bilateral lower extremities Lymphedema; Dizziness Author: EMILY STEWART MD-INT Basic Information awake alert comfortable, ???Feeling weak and tired ???Frequent urination ???Has low-grade fever Review of Systems Constitutional: No fever, No chills. Eye: No discharge, No blurring, No double vision, No visual disturbances. Ear/Nose/Mouth/Throat: No nasal congestion, No sore throat. Respiratory: No shortness of breath, No cough. Cardiovascular: No chest pain, No palpitations. Gastrointestinal: No nausea, No vomiting. Genitourinary: No change in urine stream. Musculoskeletal: Right leg in a cast, Right upper extremity in a sling. Integumentary: Negative. Neurologic: Alert and oriented X4. Health Status Allergies: Allergies (1) Active Reaction No Known Medication Allergies None Documented Current medications: Medications (33) Active Scheduled: (8) ARIPiprazole 2 mg tab [...] 150 mg 1 Cap, Oral, Daily Continuous: (0) PRN: (25) acetaminophen 325 mg [...] Hypertension Hypothyroid Physical Examination VS/Measurements Vital Measurements 04/07/2019 18:24 EDT Systolic Blood Pressure 107 mmHg Diastolic Blood Pressure 51 mmHg LOW Mean Arterial Pressure (MAP)-BMDI 62 Temperature Source Oral Temperature Mode Fahrenheit Temperature, Fahrenheit 99.2 Deg F Clinical Temperature, C 37.3 Deg C Heart Rate Monitored 78 bpm Respiratory Rate 16 Breaths/Min Oxygen Saturation 96 % Oxygen Therapy Mode Room air 04/07/2019 15:51 EDT Systolic Blood Pressure 107 mmHg Diastolic Blood Pressure 43 mmHg LOW Mean Arterial Pressure (MAP)-BMDI 60 Heart Rate Monitored 73 bpm Oxygen Saturation 98 % 04/07/2019 13:40 EDT Systolic Blood Pressure 108 mmHg Diastolic Blood Pressure 48 mmHg LOW Mean Arterial Pressure (MAP)-BMDI 62 Temperature Source Oral Temperature Mode Fahrenheit Temperature, Fahrenheit 98.3 Deg F Clinical Temperature, C 36.8 Deg C Heart Rate Monitored 73 bpm Respiratory Rate 16 Breaths/Min Oxygen Saturation 95 % Oxygen Therapy Mode Nasal cannula Oxygen [...] No lymphadenopathy neck, axilla, groin. Musculoskeletal: Right lower extremity in a cast, right upper extremity in a sling. Integumentary: Warm, Intact, No rash. Neurologic: Alert, [...] Bun/Creatinine 15.4 Calcium Level 8.0 mg/dL LOW 04/06/2019 3:51 EDT Sodium Level 137 mmol/L [...] % 20.9 % Lymph # 1.80 K/uL [place] % 8.7 % [place] # 0.75 K/uL Eos % 2.0 % Eos # 0.17 K/uL Baso % 0.6 % Baso # 0.05 K/uL Slide Review No IG# 0 x10(3)/uL IG% 0 % . Condition: Stable. Impression and Plan Diagnosis [...] renal function, blood glucose, and urine output. -Pain control -DVT prophylaxis -Close monitoring fluid and electrolytes -Nebs -Fall risk precautions -Sleep apnea precautions -Stress ulcer prophylaxis. documented in this encounter Plan of Treatment Not on file documented as of this encounter Visit Diagnoses Not on filedocumented in this encounter
--- OUTSIDE RECORDS SUMMARY | 2025-02-18 09:34 | XMS_ITS | Encounter Summary ---
Author Organization [employer] Address [address] [place] [address] Care Team Providers Care Water Quality Technician Name Role Phone Unavailable Primary Care Provider Unavailabl e Encounter Details Date Type Department Care Team (Late st Contact Info) Description 04/08/2019 Transcribed Document [facility] [place] Medicine [address] [place] [address] ProviderLeah MD [facility] [place] [address] Social History Tobacco Use Types Packs/Day Years Used Date Smoking Tobacco: Never Assessed Comments Unknown Sex and Gender Information Value Date Recorded Sex Assigned at Not on file Legal Sex Female 6:39 PM CDT Gender Identity Not on file Sexual Orientation Not on file documented as of this encounter Miscellaneous Notes * Cerner Conversion Note - Historical ProviderMD - 04/08/2019 5:00 AM CDT Chart Check - Review Order Profile Entered On: 04/08/2019 3:07 EDT Performed On: 04/08/2019 5:00 EDT by Temitope Montelongo, Rn Chart Check Powerplans Initiated/Discontinued as Appropriate : Yes All Active Orders Reviewed : Yes Temitope Montelongo Rn - 04/08/2019 3:07 EDT documented in this encounter Plan of Treatment Not on file documented as of this encounter Visit Diagnoses Not on filedocumented in this encounter
--- OUTSIDE RECORDS SUMMARY | 2025-02-18 09:34 | XMS_ITS | Encounter Summary ---
Author Organization [employer] Address [address] [place] [address] Care Team Providers Care Manager Wind Name Role Phone Unavailable Primary Care Provider Unavailabl e Encounter Details Date Type Department Care Team (Late st Contact Info) Description 04/08/2019 Transcribed Document [facility] [place] Family Medicine [address] [place] [address] ProviderLeah MD [facility] [place] [address] Social History Tobacco Use Types Packs/Day Years Used Date Smoking Tobacco: Never Assessed Comments Unknown Sex and Gender Information Value Date Recorded Sex Assigned at Not on file Legal Sex Female 6:39 PM CDT Gender Identity Not on file Sexual Orientation Not on file documented as of this encounter Miscellaneous Notes * Cerner Conversion Note - Historical ProviderMD - 04/08/2019 8:06 AM CDT Patient: CAMACHO STANLEY Age: 58 Years Sex: Female : 1960 has norco 5 mg. just takes edge off/ denies any parathesia to RUE/RLE. eating. catheter out voiding - difficult situation with getting on and off commode working with OT/PT making progress. no irritation. moving right elbow/wrist. NVI - RUE/RLE. skin about the cast is clear. negative kathleen's right proximal humerus fx./right fenur-tibia fx. - stable continue present plan - NWB RUE/RLE documented in this encounter Plan of Treatment Not on file documented as of this encounter Visit Diagnoses Not on filedocumented in this encounter
== END 2025-02-18 23:59 | disposition home or self-care (01) ==
LOC: RAD 09:29
PROVIDERS: PCP Family Medicine; Visit Provider Nurse Practitioner
DX: K80.20 Calculus of gallbladder without cholecystitis without obstruction (principal)
CPT/HCPCS: 76700

== ENCOUNTER 2025-02-18 14:00 | Outpatient (RCR) | payer MEDICARE, SELFPAY | END 2025-02-18 23:59 | disposition home or self-care (01) | LOC: OT 14:00 | PROVIDERS: Visit Provider Internal Medicine | DX: R53.1 Weakness (principal) ==

== ENCOUNTER 2025-03-10 15:00 | Outpatient (RCR) | payer MEDICARE, SELFPAY | END 2025-03-10 23:59 | disposition home or self-care (01) | LOC: PT 15:00 | PROVIDERS: Visit Provider Internal Medicine | DX: R53.1 Weakness (principal) | CPT/HCPCS: 97110; 97116; 97530 ==

== ENCOUNTER 2025-03-21 09:23 | Outpatient (RCR) | payer MEDICARE, OTHER, SELFPAY | END 2025-03-21 23:59 | disposition home or self-care (01) | LOC: PT 09:23 | PROVIDERS: PCP Family Medicine; Visit Provider Family Medicine | DX: I89.0 Lymphedema, not elsewhere classified (principal) | CPT/HCPCS: 97140; 97163 ==

== ENCOUNTER 2025-04-04 13:00 | Outpatient (RCR) | payer MEDICARE, OTHER, SELFPAY | END 2025-04-04 23:59 | disposition home or self-care (01) | LOC: PT 13:00 | PROVIDERS: Visit Provider Internal Medicine | DX: M62.81 Muscle weakness (generalized) (principal) | CPT/HCPCS: 97110; 97112; 97530 ==

== ENCOUNTER 2025-04-11 14:43 | Outpatient (RCR) | payer MEDICARE, SELFPAY | END 2025-04-11 23:59 | disposition home or self-care (01) | LOC: PT 14:43 | PROVIDERS: Visit Provider Internal Medicine | DX: S32.409A Unspecified fracture of unspecified acetabulum, initial encounter for closed fracture (principal) | CPT/HCPCS: 97116 ==

== ENCOUNTER 2025-06-10 14:00 | Outpatient (RCR) | payer MEDICARE, SELFPAY | END 2025-06-10 23:59 | disposition home or self-care (01) | LOC: PT 14:00 | PROVIDERS: PCP Family Medicine; Visit Provider Internal Medicine | DX: E11.65 Type 2 diabetes mellitus with hyperglycemia; Z79.4 Long term (current) use of insulin; R53.1 Weakness | CPT/HCPCS: 97530 ==

== ENCOUNTER 2025-06-23 12:14 | Emergency (ER) | payer MEDICARE, OTHER, SELFPAY ==
--- OUTSIDE RECORDS SUMMARY | 2025-04-30 09:00 | XMS_ITS | Encounter Summary ---
Author Organization [facility] Address [address] [place] [address] Care Team Providers Care Manager Of Case Management Name Role Phone Meagan Hagan MD Primary Care Provider [phone] Reason for Referral * Consultation (Routine) - Authorized Specialty Diagnoses / Procedures Referred By Dileep martínez Referred To Contact Diagnoses Type 2 diabetes mellitus with hyperglycemia, without long-term current use of insulin Roopa Martinez PA [address] [address] Phone: tel: fax: Referral ID Status Reason Start Date Expiration Date V isits Requested Visits Authorized [id number] Authorized 04/30/2025 10/30/2026 1 1 Reason for Visit * Reason Comments Diabetes * Consultation (Routine) - Closed Specialty Diagnoses / Procedures Referred By Dileep martínez Referred To Contact Diagnoses Type 2 diabetes mellitus with hyperglycemia Roopa Martinez PA [address] [address] Phone: tel: fax: Referral ID Status Reason Start Date Expiration Date Visits Re quested Visits Authorized [id number] Closed 01/21/2025 07/23/2026 1 1 Encounter Details Date Type Department Care Team (Late st Contact Info) Description 04/30/2025 9:00 AM EDT Office Visit [facility] [address] [place] [address] Roopa Martinez PA [address] [facility] [address] [place] [address] Type 2 diabetes mellitus without complication, without long-term current use of insulin (Primary Dx); Cirrhosis of liver without ascites, unspecified hepatic cirrhosis type (CMS/HCC) Social History Tobacco Use Types Packs/Day Years Used Date Smoking Tobacco: Former Cigarettes 2 10 1992 Smokeless Tobacco: Never Alcohol Use Standard Drinks/Week Comments Not Currently 0 (1 standard drink = 0.6 oz pur e alcohol) PHQ-2 Answer Date Recorded Patient Health Questionnaire-2 Score 3 04/30/2025 PHQ-9 Answer Date Recorded Patient Health Questionnaire-9 Score 11 04/30/2025 Comments No Sex and Gender Information Value Date Recorded Sex Assigned at Not on file Legal Sex Female 8:52 PM EDT Gender Identity Not on file Sexual Orientation Not on file documented as of this encounter Last Filed Vital Signs Vital Sign Reading Time Taken Comments Blood Pressure 106/70 04/30/2025 8:09 AM EDT Pulse 90 04/30/2025 8:09 AM EDT Temperature - - Respiratory Rate - - Oxygen Saturation - - Inhaled Oxygen Concentration - - Weight - - Height 157.5 cm (5' 2 ) 04/30/2025 8:09 AM EDT Body Mass Index - - documented in this encounter Functional Status * Over the past 2 weeks, how often have you been bothered by any of the following problems? Question Answer Date of Assessment Author Little interest or pleasure in doing things Nearly every day 04/30/2025 8:25 AM EDT Chante Thomas Feeling down, depressed, or hopeless Not at all 04/30/2025 8:25 AM EDT Salvatore Thomas Patient Health Questionnaire-2 Score 3 04/30/2025 8:25 AM EDT Cruzito Thomas * Question Answer Date of Assessment Author Trouble falling or staying asleep, or sleeping too much Nearly every day 04/30/2025 8:25 AM EDT Salvatore Thomas Feeling tired or having little energy Nearly every day 04/30/2025 8:25 AM EDT Salvatore Thomas Poor appetite or overeating Not at all 04/30/2025 8:25 AM EDT Salvatore Thomas Feeling bad about yourself - or that you are a failure or have let yourself or your family down Not at all 04/30/2025 8:25 AM EDT Salvatore Thomas Trouble concentrating on things, such as reading the newspaper or watching television Several days 04/30/2025 8:25 AM EDT Salvatore Thomas Moving or speaking so slowly that other people could have noticed? Or the opposite - being so fidgety or restless that you have been moving around a lot more than usual. Not at all 04/30/2025 8:25 AM EDT Salvatore Thomas Thoughts that you would be better off or hurting yourself in some way Several days 04/30/2025 8:25 AM EDT Thea Thomas Patient Health Questionnaire-9 Score 11 04/30/2025 8:25 AM EDT Cruzito Thomas documented as of this encounter Miscellaneous Notes * Patient Instructions - Roopa Martinez PA - 04/30/2025 9:00 AM EDT Please fax lab results to Endocrinology [phone]. -Please call the diabetes education team with any questions or concerns [phone]. Lab Results Component Value Date HGBA1C 6.6 04/30/2025 * Progress Notes - Roopa Martinez PA - 04/30/2025 9:00 AM EDT Subjective Tiffanie Dennison is a 64 y.o. female who presents for an initial evaluation of Diabetes Mellitis Type 2. Current symptoms/problems include hyperglycemia. History cirrhosis, HTN, Chiari malformation, HLD Diabetes A1c today 6.6% from 8.8% 01/10 at PCP from 8.3% 05/2024 -last office visit: Current treatment includes diet No longer injecting Lantus 5 units once daily since our last office visit due to sporadic use Known diabetic complications: none Compliance at present is estimated to be good. Cardiovascular risk factors: advanced age (older than 55 for men, 65 for women), diabetes mellitus,hypertension, sedentary lifestyle, and smoking/ tobacco exposure Is she on JESS inhibitor or angiotensin II receptor larry? No Is she on a StatinNostatin tolerance documented per pcp Current diet: {diet habits:in general, a healthy diet , eating now with reduced sugar and CHO intake. 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 david continues to follow. Current exercise: {exercise types:no regular exercise, requires motorized w/c, h/o multiple falls. Home blood sugar records: no data to review. She noted becoming more lax with blood glucose checks in the past few weeks due to her stress over ongoing liver disease issues so has not been checking. Denies hypoglycemia other than one instance several weeks ago. Hypoglycemia awareness intact. Date of Last Eye Exam: 2024 Date of Last Foot Exam: 2024 What current meter are you using?: freetyle When did you have labs last?: 10/2024 [...] (H) 01/19/2023 109 (H) 01/18/2023 102 (H) POCT Hemoglobin A1C (%) Date Value 04/30/2025 6.6 Hemoglobin A1c (%) Date Value 01/16/2023 6.5 [...] 2, is uncontrolled. Rx changes: none given a1c at goal without recent blood glucose data. -we reviewed blood glucose goals in relation to A1c control for continued blood glucose monitoring and average blood glucose per a1c today. -can adjust to checking blood glucose 1x daily before meals with alternating timing. Supplies refilled -we reviewed impact of carbohydrates and protein on blood glucose and importance of consistent carbdiet while balancing and eating a moderation. -Routine care up to date -Follow up approx 6 months with a1c. Patient prefers to follow up with endocrinology, would like for pcp to assess a1c in interim. The following Diabetes education was reviewed: [x]SBGM to evaluate dose needs [x]Insulin coverage with carbohydrate intake []Site rotation [] Exercise impact on glucose levels []Driving safety related to diabetes [x]Sick day management []Ketone testing []Over treatment of [...] timing related to changes in activity/exercise #Cirrhosis -will continue to monitor, no medication regimen to adjust however will monitor labs for impact of reducing a1c I personally spent a total of 30 minutes on this encounter. This time includes face to face with patient, counseling and discussion and/or coordination of care. Electronically signed by: JAVIER Majano [facility] [address] [place]. [address] PHONE [phone] FAX: [phone] documented in this encounter Plan of Treatment Upcoming Encounters Date Type Department Care Team (Late st Contact Info) Description 11/17/2025 9:00 AM EDT Office Visit [facility] [address] [address] Roopa Martinez PA [address] [place] [address] Scheduled Referrals Name Type Priority Associated Diagnoses Orde r Schedule Follow Up [facility] Outpatient Referral Routine Type 2 diabetes mellitus without complication, without long-term current use of insulin Expected: 11/14/2025, Expires: 11/01/2026 documented as of this encounter Procedures Procedure Name Priority Date/Time Associated Diagnosis Comments POCT GLYCOSYLATED HEMOGLOBIN (HGB A1C) Routine 04/30/2025 8:34 AM EDT Type 2 diabetes mellitus without complication, without long-term current use of insulin documented in this encounter Results * POCT glycosylated hemoglobin (Hb A1C) (04/30/2025 8:34 AM EDT) POCT Hemoglobin A1C 6.6 <5.7% Non-Diabet ic % [facility] Kit Lot Number [id number] [facility] Kit Expiration Date 02/08/27 [facility] Blood Venous blood specimen / Unknown 04/30/2025 8:34 AM EDT Roopa HERRERA POINT OF CARE TEST EN TER/EDIT ORDERABLES Final Result Performing Organization Address City/State/[facility] Co de Phone Number [facility] [address] [place] [address] documented in this encounter Visit Diagnoses Diagnosis Type 2 diabetes mellitus without complication, without long-term current use of insulin- Primary Cirrhosis of liver without ascites, unspecified hepatic cirrhosis type documented in this encounter Additional Health Concerns Assessment Noted Time PHQ-9 Depression Total Score: 11 025 8:25 AM EDT A fall risk assessment has been complete d for the patient 01/21/2025 8:11 AM EDT A Body Mass Index follow-up plan has been documented for the patient 04/30/2025 9:20 AM EDT documented as of this encounter Care Teams Manager Of Case Management Relationship Specialty Start Date End Date Meagan Hagan MD [address] [place] [address] [address] [place] [address] PCP - General 01/22/21 documented as of this encounter
[2025-06-23 12:17] VITALS: BP 115/49; PULSE 89; RESP 18; TEMP 36.6; O2SAT 100; BMI 24.2
--- NOTE | 2025-06-23 12:25 | ED_ITS ---
<Statement entered by Fredrick Dave MD - 06/23/25 21:03> I independently examined this patient. She is complaining of R wrist pain and distal forearm pain. No snuffbox tenderness, low suspicion for occult scaphoid fx. She will hold her hand in a limp, flexed position when showing me the injury, but this is not consistent with her individual motor exam which has good breakaway weakness and flexion and extension at her wrist. She is able to resist my pushing down with the wrist independently. I suspect a volitional component vs neurapraxia now improving. No fxs nor dislocation on my interpretation of the plain films. Good follow up with PT and given number to call for ortho with persistent symptoms. Strict return precautions, questions answered. I was consulted by the SH[facility], and we discussed the complexity of problems being addressed. I approved the treatment and management plan for this patient's care in the emergency department, thus performing a substantial portion of the medical decision making. Fredrick Dave MD Discharge Plan Disposition Patient Disposition: Home, Self-Care Condition: Good Prescriptions Prescriptions: No Action ursodiol 300 mg capsule 300 mg PO BID Patient Comments: TAKE 1 CAPSULE BY MOUTH TWICE DAILY DIRECTED FOR PRIMARY BILIARY CHOLANGITIS cephalexin 500 mg capsule 1,000 mg PO BID hydrocodone-acetaminophen 5-325 mg tablet 1 tab PO HS PRN (Reason: pain) Qty: 5 0RF sulfamethoxazole-trimethoprim [Bactrim DS] 800-160 mg tablet 1 tab PO Q12H 7 Days Qty: 14 0RF lidocaine 5 % ointment 1 applic topical BID PRN (Reason: pain) Qty: 30 0RF bumetanide 1 mg tablet 1 mg PO DAILY Qty: 30 0RF levothyroxine [Synthroid] 137 mcg tablet 137 mcg PO DAILYDM 30 Days Qty: 30 0RF venlafaxine 75 mg capsule,extended release 24hr 75 mg PO HS 30 Days Qty: 30 0RF Rx Instructions: one capsule daily in the evening, add to the 150 mg dose venlafaxine 150 mg capsule,extended release 24hr 150 mg PO HS 30 Days Qty: 30 0RF spironolactone 25 mg tablet 25 mg PO BID 30 Days Qty: 60 0RF potassium chloride [Klor-Con M20] 20 mEq Tablet,Er Particles/Crystals 20 meq PO DAILY 30 Days Qty: 30 0RF ascorbic acid (vitamin C) 500 mg Tablet 500 mg PO DAILY 30 Days Qty: 30 0RF ferrous sulfate [FeroSul] 325 mg (65 mg iron) tablet 325 mg PO PM 30 Days Qty: 30 0RF aripiprazole 2 mg Tablet 2 mg PO HS 30 Days Qty: 30 0RF calcium carbonate-vitamin D3 [Calcium 600 + D(3)] 600 mg-10 mcg (400 unit) Tablet 1 tab PO DAILY 30 Days Qty: 30 0RF Vitamin 27 mg iron- 800 mcg Tablet 1 tab PO 1700 30 Days Qty: 30 0RF Referrals Follow up/Referrals: Meagan Hagan [Primary Care Provider, Medical] - See instructions Activity Restrictions/Add. Instructions Additional Instructions/Restrictions: You were evaluated on an emergency basis. It is very important that you follow- up with your primary care provider and any specialist who we discussed within the next 2 days in order to better assess your health more comprehensively. For example, incidental findings on imaging or laboratory results that were performed today may be discovered, which do not require immediate medical care, but may impact your health in the future. If your symptoms worsen or persist, please return to the emergency department immediately for reassessment. Take all medications as prescribed. In queue for allowing me to participate in your health care, and I hope you feel better soon. Clinical Impressions Clinical Impression: Neurapraxia Print Language Print Language: Barbadian Discharge ED Provider: Fredrick Dave Adult HPI General Chief complaint: Extremity Injury, Upper Stated complaint: AO-1.5 wks ago, loss of movement R hand Time Seen by Provider: 06/23/25 12:25 Mode of Arrival: Wheelchair Source of Information: Patient Description of Symptoms (Recalled from ER Triage Doc. by RN): Pt fell around a week ago. Pt c/o right hand immobility since the fall. Pt can not lift wrist, and can spread fingers, but has no manager shell strength. Dr. Hagan the pt's primary care suggested she comes to the ER for xrays and possible neurology consult. History of Present Illness HPI narrative: 64-year-old female presents emergency department with complaints of decreased range of motion to her right wrist. States that she was attempting to transfer out of her wheelchair when her right hand slipped into the armrest of the wheelchair. He states that she got a small skin tear at the time of the injury but did not think much about it until later the next day when she was attempting to lock her wheelchair and realized that she could not move her right hand. She states that she is able to flex her hand but cannot extend it. She contacted her primary care provider today who recommended that come to the ER for evaluation for possible neurology referral. Patient reports that she has chronic weakness to her left side due to Chiari malformation with cervical decompression surgery. Related Data Home Medications ?Medication ?Instructions ?Recorded ?Confirmed cephalexin 500 mg capsule 1,000 mg PO BID 06/03/25 ursodiol 300 mg capsule 300 mg PO BID 06/03/2506/10 Previous Rx's ?Medication ?Instructions ?Recorded aripiprazole 2 mg tablet 2 mg PO HS 30 days #30 tabs 12/13/24 ascorbic acid (vitamin C) 500 mg 500 mg PO DAILY 30 da ys #30 tabs 12/13/24 tablet bumetanide 1 mg tablet 1 mg PO DAILY #30 tabs 12/13 calcium 600 mg (as 1 tab PO DAILY 30 days #30 t abs 12/13/24 carbonate)-vitamin D3 10 mcg (400 unit) tablet (Calcium 600 + D(3)) ferrous sulfate 325 mg (65 mg 325 mg PO PM 30 days #30 tabs 12/13/24 iron) tablet (FeroSul) levothyroxine 137 mcg tablet 137 mcg PO DAILYDM 30 day s #30 tabs 12/13/24 (Synthroid) potassium chloride 20 mEq 20 meq PO DAILY 30 days #30 tabs 12/13/24 tablet,extended release(part/cryst) (Klor-Con M) vits no.130-ferrous fum 1 tab PO 1700 30 days #30 tabs 12/13/24 27 mg iron-folic acid 800 mcg tablet ( Vitamin) spironolactone 25 mg tablet 25 mg PO BID 30 days #60 t abs 12/13/24 venlafaxine 150 mg 150 mg PO HS 30 days #30 cap s 12/13/24 capsule,extended release 24 hr venlafaxine 75 mg capsule,extended 75 mg PO HS 30 days #30 caps 12/13/24 release 24 hr hydrocodone 5 mg-acetaminophen 325 1 tab PO HS PRN alana n #5 tabs 06/03/25 mg tablet lidocaine 5 % topical ointment 1 applic topical BID NC N pain #30 06/03/25 grams sulfamethoxazole 800 1 tab PO Q12H 7 days #14 tab s 06/03/25 mg-trimethoprim 160 mg tablet (Bactrim DS) Allergies Allergy/AdvReac Type Severity Reaction Status Date / Time tizanidine Allergy Mild Other Verified 06/10/25 15:26 [facility] Disclaimer: The information contained in this section may have been updated after the patient was seen, as this information can be updated by other users. Medical History Vulvar lesion Arnold-Chiari syndrome History of shingles Anemia Peptic ulcer Cerebellar disorder Lymphedema Hypothyroidism Chronic pain Anxiety Depression HTN (hypertension) Chronic diarrhea Surgical History History of brain surgery 2002 H/O hernia repair abdominal H/O laminectomy H/O shoulder surgery RIGHT x2 H/O left knee surgery Family History Other Family history of hypertension Social History Smoking Status: Never smoker alcohol intake: former current occupational status: disabled and other Travel in the last 8 weeks?: None Have you lived/traveled outside US in past 30 days?: No Contact w/someone who lives/traveled outside US past 30 days?: No Exposure to someone with infectious disease in past 14 days?: No Do you have a fever (greater than 100.4 F or 38 C)?: No Have you tested positive for COVID-19?: No Exposed to someone with COVID-19 in past 14 days?: No Do you have a sore throat?: No Do you have a cough?: No Do you have any weakness?: No Do you have any diarrhea?: No Are you experiencing any unusual bleeding?: No Do you have any muscle aches/pain?: No Do you have any abdominal pain?: No Are you experiencing loss of taste or smell?: No Other Medical History Have you received the Flu Vaccine for this season: No Have you received the Pneumonia Vaccine: No ROS Obtained: Yes other Musculoskeletal Musculoskeletal: Reports limited range of motion Physical Exam Narrative Physical exam: General: Awake, aware, in no acute distress HEENT: Normocephalic, no evidence of trauma CV: RRR, no murmurs, rubs, or gallops Pulm: CTA bilaterally with no rhonchi, rales, wheezes ABD: Nontender, no swelling, guarding, or rebound tenderness Psych, appropriate mood and affect Musculoskeletal: Sensations intact with 2+ pulses in all extremities. Patient with 4 out of 5 strength in her right upper extremity with 5 out of 5 strength in left upper extremity. Patient appears to be moving her right hand without difficulty while discussing other aspects of her health care however when examining her regarding the specifics of today's visit, she has wrist drop and states she is unable to flex her hand. General General appearance: alert Respiratory Respiratory exam: Present normal lung sounds bilaterally Cardiovascular Cardiovascular exam: Present regular rate Neurological Exam Neurological exam: Present alert Medical Decision Making Medical Records Screening: Per USPSTF and CDC recommendations, given the prevalence of disease in our region, it is our hospital?s policy to screen for HIV and viral Hepatitis for all patients aged 18 and over and those with ongoing risk factors. Get Inquiry Pt receiving controlled substance: No Get was queried for this patient: No Vital Signs: 06/23/25 12:17 06/23/25 12:54 Temperature 97.9 F Temperature Source Oral Pulse Rate 70 Pulse Rate [Right] 89 Respiratory Rate 18 18 Blood Pressure 120/50 L Blood Pressure [Right Arm] 115/49 L Blood Pressure Mean [Right Arm] 71 Blood Pressure Source Automatic Cuff Blood Pressure Source [Right Arm] Automatic Cuff Blood Pressure Position Sitting Blood Pressure Position [Right Arm] Sitting 02 Sat by Pulse Oximetry 100 99 Oxygen Delivery Method Room Air Room Air Orders (Tests/Meds): ORDERS Category Date Time Status Forearm XR right 2 views [XR forearm RT 2V] Stat Exams 06/23/25 12:57 Taken Wrist XR right w/scaphoid [XR wrist RT w scaphoid] Stat Exams 06/23/25 12:57 Taken Medical Decision Narrative: Initial impression of presenting illness: 64-year-old female with a history of previous left-sided deficits due to Chiari malformation with a cervical decompression surgery presents emergency department after injuring her right arm and wrist Monday night. Reports that she was attempting to transfer out of her wheelchair Monday night when her right hand slipped into the armrest of the wheelchair. He states she sustained a small skin tear to her right forearm but did not think much about the injury until she woke up Monday morning and was attempting to lock her wheelchair. He states that that is when she realized that her right hand was not moving properly. He states that she contacted her primary care provider today who recommended she come to ER for neurology referral. Patient reports that she is unable to flex her right hand. Differential diagnosis includes but is not limited to: Fracture, dislocation, nerve injury among ligament injury Patient arrives hemodynamically stable, afebrile, without respiratory distress with vital signs interpreted by myself. Initial physical exam reveals intact sensation to bilateral upper extremities. Patient with 4 out of 5 strength to right upper extremity with 5 out of 5 strength to left upper extremity. Patient with 2+ pulses. When speaking with patient about other aspects of her healthcare she appears to be moving her fingers and wrist without difficulty however when discussing today specific injury she has a wrist drop to her right wrist. She is able to move all of her fingers states that she cannot extend any of them or her wrist. Rest of exam unremarkable for acute findings Initial diagnostic plan: X-ray of right wrist and forearm Results from initial plan were reviewed and interpreted by myself, pertinent positives include: X-ray of right wrist and forearm were unremarkable as interpreted by ED attending Dr. Dave. Patient was made aware of the results and the findings, upon reevaluation patient has remained stable throughout stay, symptoms remained stable. Patient resting comfortably in room with no signs of acute distress. Patient has informed nursing staff that she has a physical therapy appointment at 2 and is anxious to be discharged from the ER so that she can make that appointment. Disposition: Reviewed finding today's workup with patient informed no acute abnormalities were noted on the x-ray as interpreted by the ED attending. Informed her if the radiologist were to have in a different interpretation of the x-ray we would call her to notify of her of this discrepancy. Informed her that we will treat for neuropraxia and pain in right wrist. Urged her to continue with her physical therapy and to follow-up with her primary care provider. To her to return to the emergency department any new or worsening symptoms. Patient is agreeable to plan of care. Patient made aware of findings and had a detailed discussion with symptomatic care and return precautions, patient voiced understanding. Critical Care Critical Care Time Critical Care Time: No
--- OUTSIDE RECORDS SUMMARY | 2025-06-23 12:44 | XMS_ITS | Clinical Summary ---
Author Organization [facility] Address [address] [place] [address] Care Team Providers Care Feed Blender Name Role Phone Meagan Hagan MD Primary Care Provider + Allergies Active Allergy Reactions Criticality Noted Date Comments Permethrin Rash Low 10/22/2024 Tizanidine Anaphylaxis,Unknown (See Comments) High 0 10/16/2020 PASSED OUT Medications Cholecalciferol 50 MCG (1999 UT) capsule Take 1 capsule by mouth. Active levothyroxine (SYNTHROID, LEVOTHROID) 150 MCG tablet Take 137 mcg by mouth Daily. Active ARIPiprazole (ABILIFY) 2 MG tablet Take 1 tablet by mouth Every Evening. Active venlafaxine XR (EFFEXOR-XR) 150 MG 24 hr capsule Take 1 capsule by mouth Every Night. Active nystatin (MYCOSTATIN) 899071 UNIT/GM powder Apply 1 Application topically to the appropriate area as directed 3 (Three) Times a Day As Needed (FUNGAL). Active ibuprofen (ADVIL,MOTRIN) 400 MG tablet Take 1 tablet by mouth Every 6 (Six) Hours As Needed for Mild Pain . 08/13/20 19 Active spironolactone (ALDACTONE) 25 MG tablet Take 1 tablet by mouth Daily. Active rOPINIRole (REQUIP) 0.5 MG tablet Take 1 tablet by mouth At Night As Needed (MUSCLE SPASM). Take 1 hour before bedtime. Active furosemide (LASIX) 20 MG tablet Take 1 tablet by mouth Daily. May hold for a couple days postop until hypotension resolves 12/23/19 22 Active acetaminophen (TYLENOL) 325 MG tablet Take 2 tablets by mouth Every 4 (Four) Hours As Needed for Mild Pain . 12/23/19 Active Magnesium 250 MG capsule Take 250 mg by mouth Daily. Active potassium chloride (KLOR-CON M20) 20 MEQ CR tablet Take 1 tablet by mouth 2 (Two) Times a Day. Active venlafaxine (EFFEXOR) 75 MG tablet Take 1 tablet by mouth Every Morning. Active alendronate (FOSAMAX) 70 MG tablet Take 1 tablet by mouth Every 7 (Seven) Days. Active ferrous sulfate 325 (65 FE) MG tablet Take 1 tablet by mouth Every Evening. Active calcium carbonate (OS-PAT) 600 MG tablet Take 1 tablet by mouth Daily. Active MV-Min-Fe Fum-FA-DHA ( 1 PO) Take 1 tablet by mouth Daily. Active Ascorbic Acid Buffered (VITAMIN C EFFERVESCENT PO) Take 1 tablet by mouth Daily With Lunch. Active docusate sodium 100 MG capsule Take 1 capsule by mouth 2 (Two) Times a Day. 60 capsule 10/25/2024 2:47 PM EST 10/25/19 25 Active oxyCODONE-acetamin ophen (PERCOCET) 5-325 MG per tabletIndications: Umbilical hernia without obstruction and without gangrene Take 1 tablet by mouth Every 4 (Four) Hours As Needed for Moderate Pain. 11 tablet 10/25/2024 2:47 PM EST 10/25/19 25 Active ondansetron ODT (ZOFRAN-ODT) [address] 1 tablet on the tongue Every 6 (Six) Hours As Needed for Nausea or Vomiting. 60 tablet 1 10/25/2024 2:47 PM EST 10/25/19 25 Active Active Problems Problem Noted Date Diagnosed Date Chronic pain 10/22/2024 Left hemiparesis 10/22/2024 Umbilical hernia without obstruction and without gangrene 10/22/2024 Umbilical hernia 10/22/2024 S/P Revision right reverse t otal shoulder arthroplasty, removal of hardware 12/22/2021 Acute postoperative pain 12/22/2021 Acute blood loss anemia, asymptomatic 2021 Failed orthopedic implant 12/17/2021 Chiari malformation type II 10/22/2021 Hyperlipidemia 10/22/2021 Obesity with body mass index 30 or greater 10/22 Rotator cuff arthropathy, right 08/09/2019 Essential hypertension 08/09/2019 Hypothyroidism (acquired) 08/09/2019 S/P reverse total shoulder arthroplasty, right 1 10/09/2018 Intermittent urinary incontinence 10/14/2016 Social History Tobacco Use Types Packs/Day Years Used Date Smoking Tobacco: Former Cigarettes 0.5 15 1 985 - 2000 Smokeless Tobacco: Never Tobacco Cessation:Counseling Given: Not Answered Alcohol Use Standard Drinks/Week Comments No 0 (1 standard drink = 0.6 oz pur e alcohol) [facility] Utilities Answer Date Recorded In the past 12 months has th e [employer], gas, oil, or water company threatened to shut off services in your home? No 10/23/2024 AUDIT-C Answer Date Recorded Q1: How often do you have a drink containing alcohol? Never 10/22/2024 Q2: How many drinks containi ng alcohol do you have on a typical day when you are drinking? Patient does not drink Q3: How often do you have si x or more drinks on one occasion? Never 10/22/2024 Overall Financial Resource Strain (CARDIA) Answe r Date Recorded How hard is it for you to pa y for the very basics like food, housing, medical care, and heating? Not hard at all 10/23/2024 [facility] of Occupat ional Health - Occupational Stress Questionnaire Answer Date Recorded Do you feel stress - tense, restless, nervous, or anxious, or unable to sleep at night because your mind is troubled all the time - these days? Not at all 10/23/2024 Exercise Vital Sign Answer Date Recorde d On average, how many days pe r week do you engage in moderate to strenuous exercise (like a brisk walk)? 0 days 10/23/2024 On average, how many minutes do you engage in exercise at this level? 0 min 10/23/2024 Hunger Vital Sign Answer Date Recorded Within the past 12 months, y ou worried that your food would run out before you got the money to buy more. Never true 10/23/19 25 Within the past 12 months, t he food you bought just didn't last and you didn't have money to get more. Never true 10/23/2024 PRAPARE - Transportation Answer Date Re corded In the past 12 months, has l ack of transportation kept you from medical appointments or from getting medications? No 10/12 In the past 12 months, has l ack of transportation kept you from meetings, work, or from getting things needed for daily living? No 10/23/2024 Abuse Screen Answer Date Recorded Feels Unsafe at Home or Work/School no 10/22/2024 Feels Threatened by Someone no 10/12 Does Anyone Try to Keep You From Having Contact with Others or Doing Things Outside Your Home? no 10/22/2024 Physical Signs of Abuse Present no 10/22/2024 Housing Stability Answer Date Recorded Current Living Arrangements home 10/12 Potentially Unsafe Housing Conditions none 10/23/2024 Family and Community Support Answer Nathan e Recorded If for any reason you need h elp with day-to-day activities such as bathing, preparing meals, shopping, managing finances, etc., do you get the help you need? I get all the help I need 10/23/2024 How often do you feel lonely or isolated from those around you? Never 10/23/2024 Employment Answer Date Recorded Do you want help finding or keeping work or a augusto b? Patient declined 10/23/2024 Disabilities Answer Date Recorded Difficulty Concentrating, Remembering or Making Decisions no 10/23/2024 Difficulty Managing Errands Independently no 10/23/2024 Education Answer Date Recorded Do you want help with school or training? For example, starting or completing job training or getting a high school diploma, GED or equivalent Patient declined 10/23/2024 Preferred Language Slovenian 10/23/2024 PHQ-2 Answer Date Recorded Patient Health Questionnaire-2 Score 1 10/23/2024 Comments No Sex and Gender Information Value Date Recorded Sex Assigned at Not on file Legal Sex Female 10:50 AM EDT Gender Identity Not on file Sexual Orientation Not on file Last Filed Vital Signs Vital Sign Reading Time Taken Comments Blood Pressure 103/61 10/25/2024 11:00 AM EST Pulse 84 10/25/2024 11:00 AM EST Temperature 36.7 C (98 F) 10/25/2024 11:00 AM EST Respiratory Rate 16 10/25/2024 11:00 AM EST Oxygen Saturation 96% 10/25/2024 11:00 AM EST Inhaled Oxygen Concentration - - Weight 74.8 kg (165 lb) 10/22/2024 8:52 AM EST Height 144.8 cm (4' 9 ) 10/22/2024 8:52 AM EST Body Mass Index 35.71 10/22/2024 8:52 AM EST Plan of Treatment Health Maintenance Due Date Last Done Comments DXA SCAN 1959 LIPID PANEL 1959 MAMMOGRAM 1999 COLOGUARD 12/18/2004 COLON CANCER SCREENING 5 YEA R SIGMOIDOSCOPY 12/18/2004 CT COLONOGRAPHY 12/18/2004 FECAL OCCULT BLOOD TEST 12/18/2004 FIT Testing (1 year) 12/18/2004 ZOSTER VACCINE (1 of 2) 12/18/2009 ANNUAL WELLNESS VISIT 07/25/2019 Hepatitis B (1 of 3 - Risk 3 -dose series) 2019 Pneumococcal Vaccine 50+ (2 of 2 - PCV) 12/07/2022 12/07/2021 COLONOSCOPY 08/11/2024 08/11/2014 COLORECTAL CANCER SCREENING 08/11/2024 INFLUENZA VACCINE 04/11/2025 06/06/2023, , 09/15/2021, Additional history exists COVID-19 Vaccine (6 - 2023-2 5 season) 2025 08/16/2024, 08/08/2023, 09/15/2021, Additional history exists TDAP/TD VACCINES (3 - Td or Tdap) 05/30/2034 024, 10/07/2020 HEPATITIS C SCREENING Completed 01/21/2023 Medical Devices Implanted Type Area Egg And Spice Mixer Device Identifier Shelf Expiration Date Model / Serial / Lot Baseplt Std 25mm - [id number] - [id number] Implanted:Qty: 1 on 08/09/2019 by Quirino Tripp MD at [facility] Implant Right: Shoulder TORNIER [id number] 07/08/2024 [id number] / [id number] / Totl Shldr Rev S4 Tornier - [id number] Implanted:Qty: 1 on 08/09/2019 by Quirino Tripp MD at [facility] Implant Right: Shoulder TORNIER CAPREVSHLD RS4 / / Scrw Aequalis Perform Centrl 6.5x35mm - [id number] Implanted:Qty: 1 on 08/09/2019 by Quirino Tripp MD at [facility] Implant Right: Shoulder TORNIER [id number] / / Scrw Aequalis Perform Periph 5x38mm - [id number] Implanted:Qty: 2 on 08/09/2019 by Quirino Tripp MD at [facility] Implant Right: Shoulder TORNIER [id number] / / Scrw Periph Aequalis 5x18mm Ns - [id number] Implanted:Qty: 1 on 08/09/2019 by Quirino Tripp MD at [facility] Implant Right: Shoulder TORNIER [id number] / / Glenosphere Shldr Aequalis Perform Lat Pls3mm 36mm - [id number] - [id number] Implanted:Qty: 1 on 08/09/2019 by Quirino Tripp MD at [facility] Implant Right: Shoulder TORNIER [id number] 05/13/2024 [id number] / [id number] / Scrw Aequalis Perform Periph 5x22mm - [id number] Implanted:Qty: 1 on 08/09/2019 by Quirino Tripp MD at [facility] Implant Right: Shoulder TORNIER [id number] / / Insrt Hum Aequalis Flex Rev 12.5d 36mm Pls6 - [id number] - [id number] Implanted:Qty: 1 on 08/09/2019 by Qiurino Tripp MD at [facility] Implant Right: Shoulder TORNIER [id number] 04/04/2023 [id number] / [id number] / Try Shldr Rev Flx Ctr 0mm 1.5offst Pls0 - [id number] - [id number] Implanted:Qty: 1 on 08/09/2019 by Quirino Tripp MD at [facility] Implant Right: Shoulder TORNIER [id number] 04/03/2024 [id number] / [id number] / Stem Hum Aequalis Ascendflx Ptc Lng 132.5d 1b 88mm - [id number] - [id number] Implanted:Qty: 1 on 08/09/2019 by Quirino Tripp MD at [facility] Implant Right: Shoulder TORNIER [id number] 06/21/2023 [id number] / [id number] / Hemost Abs Surgicel 4x8in - [id number] Implanted:Qty: 2 on 12/17/2021 by Quirino Tripp MD at [facility] Implant Right: Shoulder ETHICON DIV OF J AND J 02/08/2025 1952 / / [id number] Cmt Bone Simplex/P Tmycin Fdos 10pk - [id number] Implanted:Qty: 2 on 12/17/2021 by Quirino Tripp MD at [facility] Implant Right: Shoulder HIRO MARGARET 10/11/2022 [id number] / / [id number] Plug Bone Restr/Cmt Ulna [id number] - [id number] - [id number] Implanted:Qty: 1 on 12/17/2021 by Quirino Tripp MD at [facility] Implant Right: Shoulder TORNIER 11/19/2025 [id number] / [id number] / Spacr Hum/Shldr Perform Sz0.5 Pls9mm - [id number] - [id number] Implanted:Qty: 1 on 12/17/2021 by Quirino Tripp MD at [facility] Implant Right: Shoulder TORNIER 08/26/2025 [id number] / [id number] / Insrt Hum/Shldr Rev Preform 10deg Sz1/2 36mm Pls6 - [id number] - [id number] Implanted:Qty: 1 on 12/17/2021 by Quirino Tripp MD at [facility] Implant Right: Shoulder TORNIER 08/11/2025 [id number] / [id number] / Stem Hum/Shldr Perform Std Sz2 Xlng - [id number] - [id number] Implanted:Qty: 1 on 12/17/2021 by Quirino Tripp MD at [facility] Implant Right: Shoulder TORNIER 06/22/2025 [id number] / [id number] / Mesh Edison Ventralex St W/Strap 2.5 Ca/1ea - [id number] Implanted:Qty: 1 on 10/22/2024 by Satish Lindo MD at [facility] Implant N/A: Abdomen DAVOL (DIV OF CR [employer]) 02/05/2026 [id number] / / [id number] Insurance [facility] Medicare Advantage [employer] PPO Advance Directives * CPR (Attempt to Resuscitate) (Latest Code Status on File) Date Activated Date Inactivated Comments 10/22/2024 3:44 PM 10/25/2024 6:50 PM Question Answer Comments Code Status (Patient has no pulse and is not breathing): CPR (Attempt to Resuscitate) Medical Interventions (Patie nt has pulse or is breathing): Full Support Level Of Support Discussed With: Patient * CPR (Attempt to Resuscitate) Date Activated Date Inactivated Comments 12/17/2021 9:05 PM 12/22/2021 5:46 PM Question Answer Comments Code Status (Patient has no pulse and is not breathing): CPR (Attempt to Resuscitate) Medical Interventions (Patie nt has pulse or is breathing): Full Support Level Of Support Discussed With: Patient * CPR (Attempt to Resuscitate) Date Activated Date Inactivated Comments 08/09/2019 12:02 PM 08/13/2019 3:26 PM Question Answer Comments Code Status (Patient has no pulse and is not breathing): CPR (Attempt to Resuscitate) Medical Interventions (Patie nt has pulse or is breathing): Full Level Of Support Discussed With: Patient Care Teams Feed Blender Relationship Specialty Start Date End Date Meagan Hagan MD [address] [place], [place] [id number] PCP - General Family Medicine 07/26/19
--- OUTSIDE RECORDS SUMMARY | 2025-06-23 12:45 | XMS_ITS | Clinical Summary ---
Author Organization [employer] ([place], [place], [place], [place]) Address [address] [place] [address] Care Team Providers Care Lace Pinner Name Role Phone Unavailable Primary Care Provider [...]
--- OUTSIDE RECORDS SUMMARY | 2025-06-23 12:45 | XMS_ITS | Encounter Summary ---
Author Organization [employer] ([place], [place], [place], [place]) Address [address] [place] [address] Care Team Providers Care Ripening Room Operator Name Role Phone Unavailable Primary Care Provider Unavailabl e Encounter Details Date Type Department Care Team (Late st Contact Info) Description 04/10/2019 Transcribed Document [facility] [place] [facility] [place] [address] ProviderLeah MD [facility] [place] [address] Social History Tobacco Use Types Packs/Day Years [...] On: 04/10/2019 14:05 EDT by Lauren Mendoza Insulation Engineman Lead Attempt to Treat Unable to Treat Due To : Other: dc to rehab. Inability to Treat Comment : Pt discharging at 1500 today. Notification : RN notified therapy of dc. Lauren Mendoza Insulation Engineman Lead - 04/10/2019 14:05 EDT documented in this encounter Plan of Treatment Not on file documented as of this encounter Visit Diagnoses Not on filedocumented in this encounter
--- OUTSIDE RECORDS SUMMARY | 2025-06-23 12:45 | XMS_ITS | Referral Summary ---
Author Organization [employer] ([place], [place], [place], [place]) Address [address] [place] [address] Care Team Providers Care First Grade Teacher Name Role Phone Unavailable Primary Care [...]
--- OUTSIDE RECORDS SUMMARY | 2025-06-23 12:46 | XMS_ITS | Encounter Summary ---
Author Organization [employer] ([place], [place], [place], [place]) Address [address] [place] [address] Care Team Providers Care Tab Cutter Name Role Phone Unavailable Primary Care Provider Unavailabl e Encounter Details Date Type Department Care Team (Late st Contact Info) Description 04/12/2019 Transcribed Document [facility] [place] [facility] [place] [address] ProviderLeah MD [facility] [place] [address] Social History Tobacco Use Types Packs/Day Years Used Date Smoking Tobacco: Never Assessed Comments Unknown Sex and Gender Information Value Date Recorded Sex Assigned at Not on file Legal Sex Female 6:39 PM CDT Gender Identity Not on file Sexual Orientation Not on file documented as of this encounter Miscellaneous Notes * Cerner Conversion Note - Leah Dickerson MD - 04/12/2019 11:20 AM CDT UM Authorization Entered On: 04/12/2019 11:20 EDT Performed On: 04/12/2019 11:20 EDT by MARITZA HERNDON RN-Utilization Review Primary Insurance Authorization Authorization and Policy Numbers : Insurance 1 Health Plan: [facility] MEDICARE ADVANTAGE Policy Number: [id number] Authorization Number: [id number] Insurance 2 Health Plan: [employer] Policy Number: [id number] Authorization Number: Insurance Primary Name : [facility] Medicare Advantage Authorization Status-Primary : Awaiting callback Reference Number-Primary : [id number] pended Authorized Service Begin Date-Primary : 04/05/2019 EDT Authorization Comments-Primary : [facility] d/c date and summary attached to website -- auth still pending Historical Authorization Comments-Primary : Comment 1: Uploaded clinicals to [facility] Medicare via [employer]. (ELIZABETH CASSIDY RN-Utilization Review 04/06/2019 09:10) MARITZA HERNDON RN-Utilization Review - 04/12/2019 11:20 EDT Electronically signed by Zulma, [facility] Conversion Nutrition Aide Cerner at 12/26/2022 12:43 PM CDT documented in this encounter Plan of Treatment Not on file documented as of this encounter Visit Diagnoses Not on filedocumented in this encounter
--- OUTSIDE RECORDS SUMMARY | 2025-06-23 12:46 | XMS_ITS | Clinical Summary ---
Author Organization [facility] , [facility] Address [address] [place] [address] Phone Care Team Providers Care Fur Comber Name Role Phone BARNEY HIGH, MARIS Ruano Unavailable [phone] Guy Alcaraz MD Unavailable [phone] Reason for Visit and Chief Complaint The Chief Complaint is: Right shoulder folow up Problems Includes: Problems addressed during this encounter and other active Problems All Visits Onset Date Resolved Date Provider Condition S tatus Left Ankle Joint Pain 01/16/2023 Modesto Zhang DPM Active Last Documented On 3 9:24AM ; [facility] Plan of Treatment She can stop her sling. She is to have no weightbearing load on this arm using a walker or cane she understands this. She wants to do therapy. I have advised against any significant aggressive approach in therapy. She is out and about starting. I will write an order but will be for very gentle passive active range of motion in forward elevation only and no strengthening or stressing the joint. - Last Documented On 01/21/2022 1:28PM ; [facility], [facility] Assessments Includes: Assessments from this encounter Findings Right shoulder reverse arthroplasty - Last Documented On 01/21/2022 1:28PM ; [facility] Medical Equipment - Implanted Devices Includes: Current Devices No Medical Equipment Recorded Medications Includes: Medications discussed during this encounter and other current Medications Discontinued / Stopped on this date MARIS CORLEY MD on 10/18/2021 Venlafaxine HCl ER 150 MG Or al Tablet Extended Release 24 Hour Provider: MARIS DIAS MD Diagnosis: Last Documented On 2 12:55PM By Montse Harkins ; [facility], [facility] Bactrim DS 800-160 MG Oral Tablet Provide r: Quirino Tripp MD Diagnosis: Last Documented On 2 12:55PM By Montse Harkins ; [facility] [place] 10-325MG Oral Tablet Provider: Geetha Stanley MD Diagnosis: Last Documented On 2 12:55PM By Montse Harkins ; [facility], [facility] Current Medications (continue as prescribed) Calcium 600+D 600-10 MG-MCG Oral Tablet 01/16/2023 P romaddieder: Diagnosis: Last Documented On 3 10:07AM By Luz Ruff ; [facility], [facility] Ascorbic Acid 1000 MG Oral Tablet 01/16/2023 Provide r: Diagnosis: Last Documented On 3 10:07AM By Luz Ruff ; [facility], [facility] Lidocaine Viscous HCl 2% Mouth/Throat Solution 023 Provider: Diagnosis: Last Documented On 3 10:11AM By Luz Ruff ; [facility] Ibuprofen 800 MG Oral Tablet 01/16/2023 Provider: Diagnosis: Last Documented On 3 10:11AM By Luz Ruff ; [facility], [facility] Fluorometholone 0.1% Ophthalmic Suspension 01/16/2023 Provider: Diagnosis: Last Documented On 3 10:10AM By Luz Ruff ; [facility] Gabapentin 100 MG Oral Capsule 01/16/2023 Provider: Diagnosis: Last Documented On 3 10:10AM By Luz Ruff ; [facility] FeroSul 325 (65 Fe) MG Oral Tablet 01/16/2023 Provid er: Diagnosis: Last Documented On 3 10:10AM By Luz Ruff ; [facility] Erythromycin 5 MG/GM Ophthalmic Ointment 01/16/2023 Provider: Diagnosis: Last Documented On 3 10:09AM By Luz Ruff ; [facility] Diphenoxylate-Atropine 2.5-0.025 MG Oral Tablet 2022 Provider: Diagnosis: Last Documented On 3 10:09AM By Luz Ruff ; [facility], [facility] Chlorhexidine Gluconate 0.12% Mouth/Throat Solution Provider: Diagnosis: Last Documented On 3 10:09AM By Luz Ruff ; [facility] Calmoseptine 0.44-20.6% External Ointment 01/16/2023 Provider: Diagnosis: Last Documented On 3 10:09AM By Luz Ruff ; [facility] Olopatadine HCl 0.1% Ophthalmic Solution 01/16/2023 Provider: Diagnosis: Last Documented On 3 10:09AM By Luz Ruff ; [facility] Promethazine HCl 25 MG Oral Tablet 01/16/2023 Provid er: Diagnosis: Last Documented On 3 10:08AM By Luz Ruff ; [facility], [facility] rOPINIRole HCl 0.5 MG Oral Tablet 01/16/2023 Provide r: Diagnosis: Last Documented On 3 10:08AM By Luz Ruff ; [facility] HYDROcodone-Acetaminophen 7. 5-325 MG Oral Tablet 01/09/2023 Provider: MARIS CORLEY MD Diagnosis: Last Documented On 3 9:27AM By Luz Ruff ; [facility] Eye Itch Relief 0.025% Ophthalmic Solution 01/08/2023 Provider: Diagnosis: Last Documented On 3 10:06AM By Luz Ruff ; [facility] Levothyroxine Sodium 150 MCG Oral Tablet 01/01/2023 Provider: MARIS CORLEY MD Diagnosis: Last Documented On 3 9:27AM By Luz Ruff ; [facility] Furosemide 20 MG Oral Tablet 12/29/2022 Provider: MARIS CORLEY MD Diagnosis: Last Documented On 3 9:27AM By Luz Ruff ; [facility] Synthroid 175 MCG Oral Tablet 12/09/2022 Provider: MARIS CORLEY MD Diagnosis: Last Documented On 3 10:06AM By Luz Ruff ; [facility] prednisoLONE Acetate 1% Ophthalmic Suspension 12/10/19 Provider: Diagnosis: Last Documented On 3 10:06AM By Luz Ruff ; [facility] Venlafaxine HCl ER 150 MG Or al Capsule Extended Release 24 Hour 12/06/2022 Provider: MARIS DIAS MD Diagnosis: Last Documented On 3 9:27AM By Luz Ruff ; [facility] ARIPiprazole 2 MG Oral Tablet 11/22/2022 Provider: MARIS CORLEY MD Diagnosis: Last Documented On 3 9:27AM By Luz Ruff ; [facility] Spironolactone 25 MG Oral Tablet 09/12/2022 Provider : MARIS CORLEY MD Diagnosis: Last Documented On 3 10:08AM By Luz Ruff ; [facility] Nystatin [id number] UNIT/GM External Cream 08/09/2022 Pr ovider: MARIS CORLEY MD Diagnosis: Last Documented On 3 10:11AM By Luz Ruff ; [facility] Past Medications on file HYDROcodone-Acetaminophen 5- 325 MG Oral Tablet 05/17/2022 - 05/24/2022 Provider: Quirino Tripp MD Diagnosis: one tablet by mouth three ti mes a daylast prescription Last Documented On 2 3:28PM By Quirino Tripp ; [facility] HYDROcodone-Acetaminophen 5- 325 MG Oral Tablet 05/04/2022 - 05/11/2022 Provider: Quirino Tripp MD Diagnosis: one tablet by mouth three times a day Last Documented On 2 4:56PM By Quirino Tripp ; [facility] HYDROcodone-Acetaminophen 5- 325 MG Oral Tablet 04/28/2022 - 05/05/2022 Provider: Quirino Tripp MD Diagnosis: one tablet by mouth three times a day Last Documented On 2 8:20AM By Quirino Tripp ; [facility] HYDROcodone-Acetaminophen 5- 325 MG Oral Tablet 04/20/2022 - 04/27/2022 Provider: Quirino Tripp MD Diagnosis: one tablet by mouth three times a day Last Documented On 2 1:38PM By Quirino Tripp ; [facility] HYDROcodone-Acetaminophen 5- 325 MG Oral Tablet 04/13/2022 - 04/20/2022 Provider: Quirino Tripp MD Diagnosis: one tablet by mouth three times a day Last Documented On 2 5:24PM By Quirino Tripp ; [facility] HYDROcodone-Acetaminophen 5- 325 MG Oral Tablet 04/06/2022 - 04/13/2022 Provider: Quirino Tripp MD Diagnosis: one tablet by mouth three times a day Last Documented On 2 5:13PM By Quirino Tripp ; [facility] HYDROcodone-Acetaminophen 5- 325 MG Oral Tablet 03/31/2022 - 04/07/2022 Provider: Quirino Tripp MD Diagnosis: one tablet by mouth three times a day Last Documented On 2 4:14PM By Quirino Tripp ; [facility] HYDROcodone-Acetaminophen 5- 325 MG Oral Tablet 03/24/2022 - 03/31/2022 Provider: Quirino Tripp MD Diagnosis: one tablet by mouth three times a day Last Documented On 2 10:24AM By Quirino Tripp ; [facility] HYDROcodone-Acetaminophen 5- 325 MG Oral Tablet 03/16/2022 - 03/23/2022 Provider: Quirino Tripp MD Diagnosis: one tablet by mouth three times a day Last Documented On 2 4:39PM By Quirino Cabrales [facility] HYDROcodone-Acetaminophen 5- 325 MG Oral Tablet 03/09/2022 - 03/16/2022 Provider: Quirino Tripp MD Diagnosis: one tablet by mouth three times a day Last Documented On 2 11:11AM By Quirino Tripp ; [facility] HYDROcodone-Acetaminophen 5- 325 MG Oral Tablet 03/01/2022 - 03/08/2022 Provider: Quirino Tripp MD Diagnosis: one tablet by mouth three times a day Last Documented On 2 10:02AM By Quirino Cabrales [facility] HYDROcodone-Acetaminophen 5- 325 MG Oral Tablet 02/23/2022 - 03/02/2022 Provider: Quirino Tripp MD Diagnosis: one tablet by mouth three times a day Last Documented On 2 11:25AM By Quirino Tripp ; [facility] HYDROcodone-Acetaminophen 5- 325 MG Oral Tablet 02/17/2022 - 02/24/2022 Provider: Quirino Tripp MD Diagnosis: one tablet by mouth three times a day Last Documented On 2 8:12AM By Quirino Tripp ; [facility] HYDROcodone-Acetaminophen 5- 325 MG Oral Tablet 02/10/2022 - 02/17/2022 Provider: Quirino Tripp MD Diagnosis: one tablet by mouth three times a day Last Documented On 2 1:41PM By Quirino Tripp ; [facility] HYDROcodone-Acetaminophen 5- 325 MG Oral Tablet 01/27/2022 - 02/03/2022 Provider: Quirino Tripp MD Diagnosis: one tablet by mouth three times a day Last Documented On 2 8:16AM By Quirino Cabrales [facility] HYDROcodone-Acetaminophen 5- 325 MG Oral Tablet 01/20/2022 - 01/27/2022 Provider: Quirino Tripp MD Diagnosis: one tablet by mouth three times a day Last Documented On 2 9:45AM By Quirino Tripp ; [facility] HYDROcodone-Acetaminophen 5- 325 MG Oral Tablet 01/13/2022 - 01/20/2022 Provider: Quirino Tripp MD Diagnosis: three times a day Last Documented On 2 4:20PM By Quirino Cabrales [facility] oxyCODONE HCl 5 MG Oral Tablet 01/05/2022 - 01/10/2022 Provider: Quirino hsieh MD Diagnosis: 1-2 po q 4-6h prn post op pa inNOT TO EXCEED MORE THAN 6 TABLETS IN 24 HOURS Last Documented On 2 4:44PM By Quirino Cabrales [facility] oxyCODONE HCl 5 MG Oral Tablet 12/30/2021 - 01/04/2022 Provider: Quirino hsieh MD Diagnosis: 1-2 po q 4-6h prn post op pa inNOT TO EXCEED MORE THAN 6 TABLETS IN 24 HOURS Last Documented On 2 1:51PM By Quirino Tripp ; [facility] Amoxicillin 500 MG Oral Capsule 12/30/2021 - 01/09/2022 Provider: Quirino hsieh MD Diagnosis: one tablet by mouth three times a day Last Documented On 2 1:51PM By Montse Harkins ; [facility] Benzoyl Peroxide Wash 5% External Liquid 12/15/2021 - 12/16/2021 Provider: Quirino hsieh MD Diagnosis: use as directed by Dr. Tripp Last Documented On 2 9:11AM By Yi Collins ; [facility], [facility] Ondansetron HCl 4 MG Oral Tablet 12/15/2021 - 12/25/2021 Provider: Quirino hsieh MD Diagnosis: 1 q 8 hours prn nausea 1 q 8 hours prn post op nausea Last Documented On 2 9:11AM By Yi Colilns ; [facility], [facility] HYDROcodone-Acetaminophen 5- 325 MG Oral Tablet 12/02/2021 - 12/12/2021 Provider: Quirino Tripp MD Diagnosis: three times a day Last Documented On 2 3:29PM By Quirino Tripp ; [facility], [facility] HYDROcodone-Acetaminophen 5- 325 MG Oral Tablet 11/18/2021 - 11/28/2021 Provider: Quirino Tripp MD Diagnosis: three times a day Last Documented On 2 2:55PM By Quirino Tripp ; [facility], [facility] HYDROcodone-Acetaminophen 5- 325 MG Oral Tablet 11/05/2021 - 11/15/2021 Provider: Quirino Tripp MD Diagnosis: three times a day Last Documented On 2 12:56PM By Quirino Tripp ; [facility], [facility] Furosemide 40 MG Oral Tablet 10/18/2021 - 01/16/2022 Julio fritz: MARIS CORLEY MD Diagnosis: Last Documented On 2 3:57PM By Rosario Pierce ; [facility] HYDROcodone-Acetaminophen 5- 325 MG Oral Tablet 10/18/2021 - 10/28/2021 Provider: Quirino Tripp MD Diagnosis: three times a day Last Documented On 2 2:50PM By Quirino Tripp ; [facility] Ibuprofen 600 MG Oral Tablet 10/18/2021 - 10/23/2021 P rovider: Diagnosis: Last Documented On 2 3:55PM By Rosario Pierce ; [facility] ARIPiprazole 2 MG Oral Tablet 10/18/2021 - 01/16/2022 Provider: MARIS CORLEY MD Diagnosis: Last Documented On 2 3:55PM By Rosario Pierce ; [facility], [facility] Potassium Chloride ER 20 MEQ Oral Tablet Extended Release 10/18/2021 - 01/16/2022 Provider: MARIS CORLEY MD Diagnosis: Last Documented On 2 3:55PM By Rosario Pierce ; [facility], [facility] Diphenoxylate-Atropine 2.5-0 .025 MG Oral Tablet 10/18/2021 - 01/16/2022 Provider: MARIS CORLEY MD Diagnosis: Last Documented On 2 3:56PM By Rosario Pierce ; [facility], [facility] Levothyroxine Sodium 25 MCG Oral Tablet 10/18/2021 - 01/16/2022 Provider: MARIS Longoria MD Diagnosis: Last Documented On 2 3:56PM By Rosario Pierce ; [facility], [facility] Carvedilol 25 MG Oral Tablet 10/18/2021 - 01/16/2022 P rovider: MARIS CORLEY MD Diagnosis: Last Documented On 2 3:56PM By Rosario Pierce ; [facility], [facility] [place] 10-325MG Oral Tablet 05/17/2019 - 06/16/2019 Pro vider: Bailey Stanley MD Diagnosis: 1 every 4 - 6 hours as needed Last Documented On 9 11:12AM By Carolina Morocho ; [facility] Medications Administered Includes: Administered Medications from this encounter No Administered Medications Recorded Vital Signs Includes: Vital Signs from this encounter Vital Name 01/21/2022 12:55P Blood Pressure Sitting (mmHg) 103/60 Pulse Rate-Sitting (bpm) 69 Height (in) 63 Note: hdv Last Documented: On 01/21/2022 12:56P M ; [facility] Results Includes: Results discussed during this encounter No Results Recorded For Specified Dates History of Present Illness Includes: History of Present Illness from this encounter HPI Tiffanie Dennison is a 61 year old female. - Allergy list reviewed - Problem list reviewed - Medication reconciliation performed - Medication list reviewed She is in today for follow-up on reverse shoulder arthroplasty Social History Description Last Updated Not exercising regularly 01/16/2023 Last Documented On 2 12:29PM ; [facility] Caffeine use 12/30/2021 Last Documented On 2 12:29PM ; [facility] No recent change in diet 12/30/2021 Last Documented On 2 12:29PM ; [facility] Not a current smoker. 12/30/2021 Last Documented On 2 12:29PM ; [facility] Not a current smoker. 10/07/2020 Last Documented On 2 12:29PM ; [facility] Non-smoker 08/03/2020 Last Documented On 2 12:29PM ; [facility] No tobacco use 04/24/2019 Last Documented On 2 12:29PM ; [facility] Smoking status : Never smoker 04/24/2019 Last Documented On 2 12:29PM ; [facility] No recent change in diet 04/24/2019 Last Documented On 2 12:29PM ; [facility] Not a current smoker 04/24/2019 Last Documented On 2 12:29PM ; [facility] Not using alcohol 04/24/2019 Last Documented On 2 12:29PM ; [facility] Not using drugs 04/24/2019 Last Documented On 2 12:29PM ; [facility] Procedures and Surgical History Includes: Procedures from this encounter Procedures Code Diagnosis Performing Provider Service L ocation Service Date use of tobacco assessment performed 1000F Last Documented On 2 12:29PM ; [facility] body mass index not documented Wheelchair 3008F Last Documented On 2 12:57PM ; [facility] Pt received screening for fall risk G8270 Last Documented On 2 12:29PM ; [facility] Clinical summary provided to patient Last Documented On 2 12:29PM ; [facility] an X-ray was performed [id number] Last Documented On 2 12:29PM ; [facility] a CT scan was performed [id number] Last Documented On 2 12:29PM ; [facility] Surgical History Last Updated History of Previous Fractures 12/30/2021 Last Documented On 2 12:29PM ; [facility] Medical History Includes: Medical History addressed during this encounter Description Last Updated Decompression Laminectomy (2002) 023 Last Documented On 2 12:29PM ; [facility] History of arthritis 12/30/2021 Last Documented On 2 12:29PM ; [facility] History of Fractures 12/30/2021 Last Documented On 2 12:29PM ; [facility] History of Hypertension 12/30/2021 Last Documented On 2 12:29PM ; [facility] History of Thyroid Disease 12/30/2021 Last Documented On 2 12:29PM ; [facility] Past Surgical History: Knee surgery 12/11 Last Documented On 2 12:29PM ; [facility] Recent immunization for pneumococcal pne umonia 12/30/2021 Last Documented On 2 12:29PM ; [facility] A recent immunization for flu 06/11/2020 10/07/2020 Last Documented On 2 12:29PM ; [facility] Anemia 10/07/2020 Last Documented On 2 12:29PM ; [facility] Arthritis 10/07/2020 Last Documented On 2 12:29PM ; [facility] History of Fractures 10/07/2020 Last Documented On 2 12:29PM ; [facility] Hypertension 10/07/2020 Last Documented On 2 12:29PM ; [facility] Previous Fractures 10/07/2020 Last Documented On 2 12:29PM ; [facility] Sleep Apnea 10/07/2020 Last Documented On 2 12:29PM ; [facility] Thyroid Disease 10/07/2020 Last Documented On 2 12:29PM ; [facility], [facility] A previous fracture 04/24/2019 Last Documented On 2 12:29PM ; [facility], [facility] Arthritic joint problems 04/24/2019 Last Documented On 2 12:29PM ; [facility], [facility] History of depression 04/24/2019 Last Documented On 2 12:29PM ; [facility], [facility] History of osteoporosis 04/24/2019 Last Documented On 2 12:29PM ; [facility], [facility] Intermittent hypertension 04/24/2019 Last Documented On 2 12:29PM ; [facility], [facility] Thyroid disease 04/24/2019 Last Documented On 2 12:29PM ; [facility], [facility] Family History Includes: Family History addressed during this encounter Description Last Updated Family history of systemic hypertension father 12/30/2021 Last Documented On 2 12:29PM ; [facility], [facility] Review of Systems Includes: Review of Systems from this encounter Systemic: Not feeling tired, no recent weight loss, and no recent weight gain. No edema. Head: No headache and no sinus pain. Eyes: No vision problems and no glaucomatous visual field defect. No Cataracts. Glasses/Contacts. No Glaucoma. Otolaryngeal: No hearing loss and no tinnitus. No nasal symptoms. Cardiovascular: No chest pain or discomfort, no palpitations, no Hypertension, and no High Cholesterol. Pulmonary: No daytime asthma symptoms, no cough, and no chronic cough. No wheezing. Gastrointestinal: No heartburn and no abdominal pain. No Indigestion, no Acid Reflux, no Peptic Ulcer, no GI Stomach Bleed, and no Ulcers. Endocrine: No hot flashes, no muscle weakness, and no Diabetes. Hypothyroid. No Hyperthyroid. Hematologic: Easy bleeding and a tendency for easy bruising. No Anemia. Musculoskeletal: Arthritis. No lower back pain. No soft tissue swelling. Pain localized to one or more joints. Neurological: Dizziness. No convulsions and no numbness. Psychological: Anxiety, emotional lability, and depression. No insomnia. Crying for no reason. Skin: No dry skin. No Ulcers, no Scars, no rash, and no ulcers. Allergic and Immunologic: No complaint of seasonal allergic reaction. Mental Status Includes: Mental Status from this encounter Description Anxiety Functional Status Includes: Functional Status from this encounter No Functional Status Recorded Physical Exam Includes: Physical Exam from this encounter Immunizations Includes: Immunizations addressed during this encounter Vaccine Dose # Date Site Reaction(s) Status Source Influenza 1 01/21/2022 Complete (Refused - Patient objection) [facility] Last Documented On 2 1:16PM ; [facility] PCV (Pneumovax 23) 1 01/21/2022 Complete (Refused - Patient objection) [facility] Last Documented On 2 1:16PM ; [facility] Td 1 01/21/2022 Complete (Refused - Patient objection) [facility] Last Documented On 2 1:16PM ; [facility] Allergies Includes: Active Allergies Substance Type Reaction Onset Date Resolved Date Statu s tiZANidine HCl Allergy 01/16/2023 Acti ve Last Documented On 3 9:50AM ; [facility] Encounters Encounter Provider Location Date Check-In Time Check- Out Time Diagnosis Post Op Christelle Brito PA-C [facility] 2 12:29PM 1:16PM Insurance Includes: Active Insurance Policies Plan Name Member ID Group # Subscriber Relationship Effect henri Dates 1 - [facility] /MEDICARE [id number] Tiffanie Jaime Dennison Self 09/11/2018 - Unknown 2 - [employer] [id number] [id number] Tirso Clinical Notes Includes: Clinical Notes from this encounter No Clinical Notes Recorded
--- OUTSIDE RECORDS SUMMARY | 2025-06-23 12:46 | XMS_ITS | Encounter Summary ---
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 Name Role Phone Unavailable Primary Care Provider Unavailabl e Encounter Details Date Type Department Care Team (Late st Contact Info) Description 04/15/2019 Transcribed Document [facility] [place] [facility] [place] [facility] [place] [address] ProviderLeah MD [address] [place] [address] Social History Tobacco Use Types Packs/Day Years Used Date Smoking Tobacco: Never Assessed Comments Unknown Sex and Gender Information Value Date Recorded Sex Assigned at Not on file Legal Sex Female 6:39 PM CDT Gender Identity Not on file Sexual Orientation Not on file documented as of this encounter Miscellaneous Notes * [employer]ner Conversion Note - Leah Dickerson MD - 04/15/2019 12:28 PM CDT UM Authorization Entered On: 04/15/2019 12:29 EDT Performed On: 04/15/2019 12:28 EDT by MARITZA HERNDON RN-Utilization Review Primary Insurance Authorization Authorization and Policy Numbers : Insurance 1 Health Plan: [facility] MEDICARE ADVANTAGE Policy Number: [id number] Authorization Number: [id number] Insurance 2 Health Plan: [facility] Policy Number: [id number] Authorization Number: Insurance Primary Name : [facility] Medicare Advantage Authorization Status-Primary : Admit approved Reference Number-Primary : [id number] Authorization Number-Primary : [id number] Number of Days Authorized-Primary : 6 Authorized Service Begin Date-Primary : 04/05/2019 EDT Authorized Service End Date-Primary : 04/10/2019 EDT Authorization Comments-Primary : [facility] approved per fax back Historical Authorization Comments-Primary : Comment 1: [facility] d/c date and summary attached to website -- auth still pending (MARITZA HERNDON, RN-Utilization Review 04/12/2019 11:20) Comment 2: Uploaded clinicals to [facility] Medicare via [employer]. (ELIZABETH CASSIDY, RN-Utilization Review 04/06/2019 09:10) MARITZA HERNDON RN-Utilization Review - 04/15/2019 12:28 EDT documented in this encounter Plan of Treatment Not on file documented as of this encounter Visit Diagnoses Not on filedocumented in this encounter
--- OUTSIDE RECORDS SUMMARY | 2025-06-23 12:46 | XMS_ITS | Encounter Summary ---
Author Organization [employer] ([place], [place], [place], [place]) Address [address] [place] [address] Care Team Providers Care Manager Contracting Name Role Phone Unavailable Primary Care Provider Unavailabl e Encounter Details Date Type Department Care Team (Late st Contact Info) Description 04/10/2019 Transcribed Document [facility] [place] [address] [place] [address] ProviderLeah MD [address] [place] [address] Social History Tobacco Use Types Packs/Day Years Used Date Smoking Tobacco: Never Assessed Comments Unknown Sex and Gender Information Value Date Recorded Sex Assigned at Not on file Legal Sex Female 6:39 PM CDT Gender Identity Not on file Sexual Orientation Not on file documented as of this encounter Miscellaneous Notes * [employer]ner Conversion Note - Leah ProviderMD - 04/10/2019 1:58 PM CDT Stroke/Warfarin [...]
--- OUTSIDE RECORDS SUMMARY | 2025-06-23 12:47 | XMS_ITS | Encounter Summary ---
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 Name Role Phone Unavailable Primary Care Provider Unavailabl e Encounter Details Date Type Department Care Team (Late st Contact Info) Description 04/10/2019 Transcribed Document [place] [facility] [address] [place] [address] ProviderLeah MD [facility] [place] [address] Social History Tobacco Use Types Packs/Day Years Used Date Smoking Tobacco: Never Assessed Comments Unknown Sex and Gender Information Value Date Recorded Sex Assigned at Not on file Legal Sex Female 6:39 PM CDT Gender Identity Not on file Sexual Orientation Not on file documented as of this encounter Miscellaneous Notes * Cerner Conversion Note - Leah ProviderMD - 04/10/2019 2:51 PM CDT NATHAN [...]
--- OUTSIDE RECORDS SUMMARY | 2025-06-23 12:47 | XMS_ITS | Encounter Summary ---
Author Organization [employer] ([place], [place], [place], [place]) Address [address] [place] [address] Care Team Providers Care Buttermaker Continuous Churn Name Role Phone Unavailable Primary Care Provider Unavailabl e Encounter Details Date Type Department Care Team (Late st Contact Info) Description 04/10/2019 Transcribed Document [facility] [place] [facility] [place] [address] ProviderLeah MD [facility] [place] [address] Social History Tobacco Use Types Packs/Day Years Used Date Smoking Tobacco: Never Assessed Comments Unknown Sex and Gender Information Value Date Recorded Sex Assigned at Not on file Legal Sex Female 6:39 PM CDT Gender Identity Not on file Sexual Orientation Not on file documented as of this encounter Miscellaneous Notes * Cerner Conversion Note - Leah ProviderMD - 04/10/2019 1:58 PM CDT Nursing Discharge Summary Entered On: 04/10/2019 14:00 EDT Performed On: 04/10/2019 13:58 EDT by ETHAN BALLESTEROS RN Discharge Documentation Patient Disposition, General : Discharge Discharge To : Rehabilitation unit/facility Mode Of Departure, General Discharge : Ambulance/BLS Accompanied By, Discharge : telephone lines repairer IV Discontinued : Yes Prescriptions Given to Patient : Yes Discharge Instructions Reviewed With, Opportunity For Questions Given : Patient Patient Education Completed : Yes Number of Prescriptions Given : 1 Teaching Method : Explanation, Printed materials Teaching Evaluation : Verbalizes understanding Discharge Summary Sent to : [facility] ETHAN BALLESTEROS RN - 04/10/2019 13:58 EDT documented in this encounter Plan of Treatment Not on file documented as of this encounter Visit Diagnoses Not on filedocumented in this encounter
--- OUTSIDE RECORDS SUMMARY | 2025-06-23 12:47 | XMS_ITS | Encounter Summary ---
Author Organization [employer] ([place], [place], [place], [place]) Address [address] [place] [address] Care Team Providers Care Senior Water/Wastewater Engineer Name Role Phone Unavailable Primary Care Provider Unavailabl e Encounter Details Date Type Department Care Team (Late st Contact Info) Description 04/10/2019 Transcribed Document [facility] [place] [address] [place] [address] ProviderLeah MD [address] [place], [place] [id number] Social History Tobacco Use Types Packs/Day Years [...] back and padded Electronically signed by Zulma [facility] Conversion Waterside Worker Cerner at 12/26/2022 1:03 PM CDT documented in this encounter Plan of Treatment Not on file documented as of this encounter Visit Diagnoses Not on filedocumented in this encounter
--- OUTSIDE RECORDS SUMMARY | 2025-06-23 12:47 | XMS_ITS | Encounter Summary ---
Author Organization [employer] ([place], [place], [place], [place]) Address [address] [place] [address] Care Team Providers Care Big Data Lead Name Role Phone Unavailable Primary Care Provider Unavailabl e Encounter Details Date Type Department Care Team (Late st Contact Info) Description 04/10/2019 Transcribed Document [facility] [place] Medicine [facility] [place] [address] ProviderLeah MD [facility] [place] [address] Social History Tobacco Use Types Packs/Day Years Used Date Smoking Tobacco: Never Assessed Comments Unknown Sex and Gender Information Value Date Recorded Sex Assigned at Not on file Legal Sex Female 6:39 PM CDT Gender Identity Not on file Sexual Orientation Not on file documented as of this encounter Miscellaneous Notes * [employer]ner Conversion Note - Leah Dickerson MD - 04/10/2019 4:26 PM CDT [place] [id number] TIFFANIE STANLEY ROXANNE :1960 Visit Time:04/05/2019 Your Visit Summary Your Care Team Admitting Physician - EMILY STEWART MD-[place] [facility] [facility] MD-[facility] Gonzalo, UNKNOWN Attending Physician - EMILY STEWART MD-[facility] MD-[facility] Primary Care Physician - MARIS CORLEY (REF)MD-[facility] Referring Physician - TIANA, SELF REFERRED [...] Within 2 to 3 days Where: [address] [facility] [address] [place] [id number]- Medications What How Much When Instructions Next Dose ARIPiprazole (Abilify) 2 Milligram(s) Oral At Bedtime levothyroxine (Synthroid) 25 Microgram(s) Oral Every Day spironolactone 25 Milligram(s) Oral Two Times A Day acetaminophen-hydrocodone ([place] 7.5 mg-325 mg oral tablet) 1 Tablet(s) [...] 12/28/2011 Document Revised: 08/18/2017 Document Reviewed: 08/18/2017 [employer] Patient Education ?? 2019 [employer] acetaminophen and hydrocodone (a SEET a MIN oh fen and gerri jacquie ZAMARRIPAE done) Hycet, Lorcet, [place], Verdrocet, Vicodin, Xodol, Zamicet What is the [...] may report side effects to FDA at 7-631-MNX-1037. What other drugs will affect acetaminophen and [...] affect acetaminophen and hydrocodone, including prescription and [id number] medicines, vitamins, and herbal products. Not all [...] to ensure that the information provided by [employer]') is accurate, up-to-date, and complete, but no guarantee is made to that effect. Drug information contained herein may be time sensitive. [employer] information has been compiled for use by healthcare practitioners and consumers in the [place] and therefore [employer] does not warrant that uses outside of the [place] are appropriate, unless specifically indicated otherwise. [employer]'s drug information does not endorse drugs, diagnose patients or recommend therapy. [employer] drug information is an informational resource designed [...] effective or appropriate for any given patient. [employer] does not assume any responsibility for any aspect of healthcare administered with the aid of information [facility] provides. The information contained herein is not intended to cover all possible uses, directions, precautions, warnings, drug interactions, allergic reactions, or adverse effects. If you have questions about the drugs you are taking, check with your doctor, nurse or pharmacist. Copyright 2204-8315 [employer]. Version: 15.02. Revision Date: 07/16/2018. Emergency Awareness [...] Assistance with quitting is available by contacting 0-773-YQDDCarePoint PartnersNOW. This is a free resource providing counseling, [...] range between ( 1.0 and 7.0 ) [place] #: 0.75 K/uL -- Normal range between ( 0.24 and 0.82 ) [place] #: 0.17 K/uL -- Normal range between ( 0.04 and 0.54 ) [place] %: 8.7 % -- Normal range between [...] ) Urine Bilirubin Dipstick: Small Urine Specific [place]: 1.020 -- Normal range between ( 1.005 [...] was given the opportunity to ask questions. Patient/Plastic Die Maker Apprentice Name: Patient/Plastic Die Maker Apprentice Signature: Relationship to Patient: Clinician/Hospital Plastic Die Maker Apprentice Signature: Date: Electronically signed by Zulma, [facility] Conversion Print Machine Operator Cerner at 12/26/2022 12:55 PM CDT documented in this encounter Plan of Treatment Not on file documented as of this encounter Visit Diagnoses Not on filedocumented in this encounter
--- OUTSIDE RECORDS SUMMARY | 2025-06-23 12:48 | XMS_ITS | Encounter Summary ---
Author Organization [employer] ([place], [place], [place], [place]) Address [address] [place] [address] Care Team Providers Care Court Messenger Name Role Phone Unavailable Primary Care Provider Unavailabl e Encounter Details Date Type Department Care Team (Late st Contact Info) Description 04/06/2019 Transcribed Document [facility] [place] [facility] [place] [address] ProviderLeah MD [address] [place] [address] Social History Tobacco Use Types Packs/Day [...] REMEDIOS ALEX PTA - 04/07/2019 12:17 EDT Longterm Goals Other PT LTG Grid Goal #1 [...] REMEDIOS ALEX PTA - 04/07/2019 12:17 EDT [place] PT Charges PT Therap. Exercise 15 min : 1 REMEDIOS ALEX PTA - 04/07/2019 12:17 EDT documented in this encounter Plan of Treatment Not on file documented as of this encounter Visit Diagnoses Not on filedocumented in this encounter
--- OUTSIDE RECORDS SUMMARY | 2025-06-23 12:48 | XMS_ITS | Data Portability ---
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 U/L 10-35 high Not Available [facility] [place] [facility] [address] [facility], [place], [address], 01/10/2025 09:14:35 01/10/20 25 01/10/2025 COMPR EHENS JEF METAB OLIC PANEL ALT 101 U/L 6-29 high Not Available [facility] [place] [facility] [address] [facility], [place], [address], 01/10/2025 09:14:35 01/10/2001/10/2025 HEMOG LOBIN A1C WITH EAG hemoglobin A1C 8.8 % <5.7 high For someo ne witho ut known diabe mylene, a hemog lobin A1c value of 6.5% or great er indic ates that they may have diabe mylene and this shoul d be confi rmed with a follo w-up test. For someo ne with known diabe mylene, a value <7% indic ates that their diabe mylene is well contr olled and a value great er than or equal to 7% indic ates subop timal contr ol. A1c targe ts shoul d be indiv idual ized based on durat ion of diabe mylene, age, comor bid condi tions , and other consi derat ions. Curre ntly, no conse nsus exist s regcookie sebastian use of hemog lobin A1c for diagn osis of diabe mylene for child nadeen. Not Available [facility] [place] [facility] [address] [facility], [place], [address], 01/10/2025 09:14:36 01/10/20 25 01/10/2025 HEMOG LOBIN A1C WITH EAG EAG (mg/dL) 206 mg/dL Not Available [facility] [place] [facility] [address] [facility], [place], [address], 01/10/2025 09:14:36 01/10/20 25 01/10/2025 HEMOG LOBIN A1C WITH EAG EAG (mmol/L) 11.4 mmol/ L Not Available [facility] [place] [facility] [address] [facility], [place], [address], 01/10/2025 09:14:36 05/23/2005/24/2025 LIPID PANEL , STAND JANET cholesterol, total 106 mg/dL <200 normal Not Available [facility] [place] [facility] [address] [facility], [place], [address], 05/24/2025 09:19:54 05/23/20 25 05/24/2025 LIPID PANEL , STAND JANET HDL cholesterol 37 mg/dL > or = 50 low Not Available [facility] [place] [facility] [address] [facility], [place], [address], 05/24/2025 09:19:54 05/23/20 25 05/24/2025 LIPID PANEL , STAND JANET triglyceride s 45 mg/dL <150 normal Not Available [facility] [place] [facility] [address] [place] [place], [address], 05/24/2025 09:19:54 05/23/20 25 05/24/2025 LIPID PANEL , STAND JANET LDL-choleste rol 56 mg/dL _(gagandeep c) normal Refer ence range : <100 Mattie able range <100 mg/dL for prima ry preve ntion ; <70 mg/dL for patie nts with CHD or diabe tic patie nts with > or = 2 CHD risk facto rs. LDL-C is now calcu lated using the Roxy n-Hop kins calcu latio n, which is a valid ated novel metho d provi ding carmella r accur acy than the Fried rupali equat ion in the estim ation of LDL-C . Roxy blanco SS et al. XANDER. 2013; 310(1 9): 2061- 2068 (http ://ed bartati on.Qu estDi jamisonPictelas. com/f aq/FA Q164) Not Available [facility] [place] [facility] [address] [facility], [place], [address], 05/24/2025 09:19:54 05/23/2005/24/2025 LIPID PANEL , STAND JANET chol/HDLC ratio 2.9 (calc ) <5.0 normal Not Available [facility] [place] [facility] [address] [facility], [place], [address], 05/24/2025 09:19:54 05/23/2005/24/2025 LIPID PANEL , STAND JANET non HDL cholesterol 69 mg/dL _(gagandeep c) <130 normal For patie nts with diabe mylene plus 1 major ASCVD risk facto r, treat ing to a non-H DL-C goal of <100 mg/dL (LDL- C of <70 mg/dL ) is consi awaisd a edin dalton optio n. Not Available [facility] [place] [facility] [address] [facility], [place], [address], 05/24/2025 09:19:54 05/23/2005/24/2025 COMPR EHENS JEF METAB OLIC PANEL glucose 129 mg/dL 65-99 high Fasti ng refer ence inter annita For someo ne witho ut known diabe mylene, a gluco se value >125 mg/dL indic ates that they may have diabe mylene and this shoul d be confi rmed with a follo w-up test. Not Available [facility] [place] [facility] [address] [facility], [place], [address], 05/24/2025 09:19:55 05/23/2005/2405/24/2025 COMPR EHENS JEF METAB OLIC PANEL urea nitrogen (BUN) 12 mg/dL 7-25 normal Not Available [facility] [address] [place], [address], 05/24/2025 09:19:55 05/23/2005/24/2025 COMPR EHENS JEF METAB OLIC PANEL creatinine 0.43 mg/dL 0.50-1 .05 low Not Available [facility] [address] [place], [address], 05/24/2025 09:19:55 05/23/2005/24/2025 COMPR EHENS JEF METAB OLIC PANEL eGFR 108 mL/mi n/1.7 3m2 > or = 60 normal Not Available [facility] [address] [place] [address], [address], 05/24/2025 09:19:55 05/23/2005/24/2025 COMPR EHENS JEF METAB OLIC PANEL BUN/creatini ne ratio 28 (calc ) 6-22 high Not Available [facility] [place], [address], 05/24/2025 09:19:55 05/23/2005/24/2025 COMPR EHENS JEF METAB OLIC PANEL sodium 133 mmol/ L 135-14 6 low Not Available [facility] [address] [place] [address], [address], 05/24/2025 09:19:55 05/23/2005/24/2025 COMPR EHENS JEF METAB OLIC PANEL potassium 4.0 mmol/ L 3.5-5. 3 normal Not Available [facility] [place], [address], 05/24/2025 09:19:55 05/23/2005/24/2025 COMPR EHENS JEF METAB OLIC PANEL chloride 96 mmol/ L 98-110 low Not Available [facility] [address] [place], [address], 05/24/2025 09:19:55 05/23/2005/24/2025 COMPR EHENS JEF METAB OLIC PANEL carbon dioxide 30 mmol/ L 20-32 normal Not Available [facility] [address] [place], [address], 05/24/2025 09:19:55 05/23/20 25 05/24/2025 COMPR EHENS JEF METAB OLIC PANEL calcium 8.7 mg/dL 8.6-10 .4 normal Not Available [facility] [address] [place], [address], 05/24/2025 09:19:55 05/23/2005/24/2025 COMPR EHENS JEF METAB OLIC PANEL protein, total 6.6 g/dL 6.1-8. 1 normal Not Available [facility] [place], [address], 05/24/2025 09:19:55 05/23/2005/24/2025 COMPR EHENS JEF METAB OLIC PANEL albumin 3.6 g/dL 3.6-5. 1 normal Not Available [facility] [address] [place], [address], 05/24/2025 09:19:55 05/23/2005/24/2025 COMPR EHENS JEF METAB OLIC PANEL globulin 3.0 g/dL_ (calc ) 1.9-3. 7 normal Not Available [facility] [address] [place], [address], 05/24/2025 09:19:55 05/23/2005/24/2025 COMPR EHENS JEF METAB OLIC PANEL albumin/glob ulin ratio 1.2 (calc ) 1.0-2. 5 normal Not Available [facility] [address] [place], [address], 05/24/2025 09:19:55 05/23/2005/24/2025 COMPR EHENS JEF METAB OLIC PANEL bilirubin, total 1.2 mg/dL 0.2-1. 2 normal Not Available [facility] [address] [place], [address], 05/24/2025 09:19:55 05/23/2005/24/2025 COMPR EHENS JEF METAB OLIC PANEL alkaline phosphatase 333 U/L 37-153 high Not Available [facility] [address] [facility] [facility] [place], [address], 05/24/2025 09:19:55 05/23/2005/24/2025 COMPR EHENS JEF METAB OLIC PANEL AST 57 U/L 10-35 high Not Available [facility] [employer] [facility] [address] [place] [place], [address], 05/24/2025 09:19:55 05/23/2005/24/2025 COMPR EHENS JEF METAB OLIC PANEL ALT 59 U/L 6-29 high Not Available [facility] [place], [address], 05/24/2025 09:19:55 05/23/2005/24/2025 TSH TSH 28.20 mIU/L 0.40-4 .50 high Not Available [facility] [place], [address], 05/24/2025 09:19:55 05/23/2005/24/2025 CBC (INCL UDES DIFF/ PLT) white blood cell count 5.0 thous and/u L 3.8-10 .8 normal Not Available [facility] [employer] [facility] [address] [place], [address], 05/24/2025 09:19:56 05/23/2005/24/2025 CBC (INCL UDES DIFF/ PLT) red blood cell count 3.73 axel on/uL 3.80-5 .10 low Not Available [facility] [place] [facility] [address] [place], [address], 05/24/2025 09:19:56 05/23/2005/24/2025 CBC (INCL UDES DIFF/ PLT) hemoglobin 11.4 g/dL 11.7-1 5.5 low Not Available [facility] [place] [facility] [address] [place], [address], 05/24/2025 09:19:56 05/23/2005/24/2025 CBC (INCL UDES DIFF/ PLT) hematocrit 34.6 % 35.0-4 5.0 low Not Available [facility] [place] [facility] [address] [place], [address], 05/24/2025 09:19:56 05/23/2005/24/2025 CBC (INCL UDES DIFF/ PLT) MCV 92.8 fL 80.0-1 00.0 normal Not Available [facility] [place] [facility] [address] [place], [address], 05/24/2025 09:19:56 05/23/2005/24/2025 CBC (INCL UDES DIFF/ PLT) MCH 30.6 pg 27.0-3 3.0 normal Not Available [facility] [place] [facility] [address] [place], [address], 05/24/2025 09:19:56 05/23/2005/24/2025 CBC (INCL UDES DIFF/ PLT) MCHC 32.9 g/dL 32.0-3 6.0 normal For adult s, a sligh t decre ase in the calcu lated MCHC value (in the range of 30 to 32 g/dL) is most likel y not clini vance signi aisha t; huyen er, it shoul d be inter prete d with cauti on in [facility] n with other red cell devorah eters and the patie nt's clini gagandeep condi tion. Not Available [facility] [place] [facility] [address], [place], [address], 05/24/2025 09:19:56 05/23/2005/24/2025 CBC (INCL UDES DIFF/ PLT) RDW 16.5 % 11.0-1 5.0 high Not Available [facility] [place] [facility] [address], [place], [address], 05/24/2025 09:19:56 05/23/2005/24/2025 CBC (INCL UDES DIFF/ PLT) platelet count 107 thous and/u L 140-40 0 low Not Available [facility] [place] [facility] [address], [place], [address], 05/24/2025 09:19:56 05/23/2005/24/2025 CBC (INCL UDES DIFF/ PLT) MPV 9.6 fL 7.5-12 .5 normal Not Available [facility] [place] [facility] [address], [place], [address], 05/24/2025 09:19:56 05/23/2005/24/2025 CBC (INCL UDES DIFF/ PLT) absolute neutrophils 3150 cells /uL 1500-7 800 normal Not Available [facility] [place] [facility] [address], [place], [address], 05/24/2025 09:19:56 05/23/2005/24/2025 CBC (INCL UDES DIFF/ PLT) absolute lymphocytes 1220 cells /uL 850-39 00 normal Not Available [facility] [place] [facility] [address], [place], [address], 05/24/2025 09:19:56 05/23/20 25 05/24/2025 CBC (INCL UDES DIFF/ PLT) absolute monocytes 500 cells /uL 200-95 0 normal Not Available [facility] [place] [facility] [address], [place], [address], 05/24/2025 09:19:56 05/23/2005/24/2025 CBC (INCL UDES DIFF/ PLT) absolute eosinophils 90 cells /uL 15-500 normal Not Available [facility] [address], [place], [address], 05/24/2025 09:19:56 05/23/2005/24/2025 CBC (INCL UDES DIFF/ PLT) absolute basophils 40 cells /uL 0-200 normal Not Available [facility] [place] [address] [place], [address], 05/24/2025 09:19:56 05/23/2005/24/2025 CBC (INCL UDES DIFF/ PLT) neutrophils 63 % normal Not Available [facility] [place] [address] [facility], [place], [address], 05/24/2025 09:19:56 05/23/20 25 05/24/2025 CBC (INCL UDES DIFF/ PLT) lymphocytes 24.4 % normal Not Available [facility] [place] [facility] [place], [address], 05/24/2025 09:19:56 05/23/2005/24/2025 CBC (INCL UDES DIFF/ PLT) monocytes 10.0 % normal Not Available [facility] [address], [place], [address], 05/24/2025 09:19:56 05/23/20 25 05/24/2025 CBC (INCL UDES DIFF/ PLT) eosinophils 1.8 % normal Not Available [facility] [place] [facility] [address], [place], [address], 05/24/2025 09:19:56 05/23/2005/24/2025 CBC (INCL UDES DIFF/ PLT) basophils 0.8 % normal Not Available [facility] [place] [facility] [address], [place], [address], 05/24/2025 09:19:56 02/19/2002/18/2025 US, abdom en + pelvi s No observ ation record ed. [facility] [address], [place], [address], 02/25/2025 19:11:17 Result Notes None recorded. 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 Active Not Available [facility] 3 04:05:44 Chiari malformati on 805242731 Active Not Available [facility] 3 04:05:44 Hypertensi ve disorder 03584226 Active Not Available [facility] 3 04:05:44 Hypothyroi dism 75362128 Active Not Available [facility] 3 04:05:44 Fatigue 54502155 Active Not Available [facility] 3 04:05:44 Local infection of wound 07140512 Active Not Available [facility] 3 04:05:44 Chronic diarrhea 064328104 Active Not Available [facility] 3 04:05:43 Hyperlipid emia 83186212 Active Not Available [facility] 3 04:05:44 Onychomyco sis 840695221 Active Not Available [facility] 3 04:05:44 Candidiasi s of skin 45529608 Active Not Available [facility] 3 04:05:44 Infection of skin and/or subcutaneo us tissue 38198484 Active Not Available [facility] 3 04:05:43 Body mass index 30+ - obesity 755804700 Active Not Available [facility] 3 04:05:43 Left hemiparesi s 746205901 Active Not Available [facility] 3 04:05:44 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 catherine 1022767975620 8 Active Not Available [facility] 3 04:05:43 Syringomye keegan 102111576 Active Not Available [facility] 3 04:05:43 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 Not Available [facility] 3 04:05:44 Intermitte nt urinary incontinen ce 627452476 Active 2016 Not Available [facility] 3 04:05:44 Adhesive capsulitis of left shoulder 8928114956595 07 Active 2016 Not Available [facility] 3 04:05:44 Sleep related hypoxemia 9800525911893 02 Active 2016 G47.36 Not Available [facility] 3 04:05:44 Fracture of femur 22160800 Active 2018 Not Available [facility] 3 04:05:44 Fracture of humerus 93567814 Active 2018 [facility] Available [facility] 3 04:05:44 Closed fracture of left tibial plateau 8630506645282 9107 Active 2020 Not Available [facility] 3 04:05:43 Closed fracture of clavicle 85625224 Active 2020 Not Available [facility] 3 04:05:44 Compressio n fracture of lumbar spine 337610766 Active 2020 Not Available [facility] 3 04:05:44 Osteoarthr itis of wrist 260651197 Active 2023 Meagan Hagan MD [address] [place] [address], [address], [place], [address] , [facility] 4 12:32:00 Problem Notes None recorded. Procedures Surgical History Date Name Laterality Status Provider Name and Address Organization Details Recorded Time 12/18/19 22 repair of shoulder completed Meagan Hagan MD [address] [facility], [place], [address], [facility] 05/09/2022 14:14:30 10/15/19 21 open reduction of fracture with internal fixation completed Meagan Hagan MD [address] [address], [place], [address], [facility] 04/11/2021 19:45:26 04/06/20 19 procedure on knee completed Meagan Hagan MD [address] [address], [place], [place], [address] [place] [address], [facility] 12/07/2022 23:56:52 08/11/20 14 Colonoscopy completed Meagan Hagan MD [address] [address], [place], [address], [facility] 11/07/2014 14:40:37 09/11/19 12 Other completed [facility] 11/07/2014 13:57:35 09/11/19 03 operation on brain completed Meagan Hagan MD [address] [address], [place], [address], [facility] 05/11/2022 00:07:17 09/11/18 97 Other completed [facility] 11/07/2014 13:57:35 reverse prosthetic total arthroplasty of right shoulder completed Meagan Hagan MD [address] [address], [place], [address], [facility] 11/06/2019 21:36:32 Imaging Results None recorded. Procedure Notes None recorded. Medical Equipment None Reported. Allergies Allergen ID Allergen Name Allergen Category Reaction Reaction Severity Criticality Documentation Date Start Date Code Code System Note Provider Name and Address Organization Details Recorded Time 00314 Zanaflex medicatio n anaphylax is severe Not available 10/19/20202020 96298 6 [facility] 1 10:44:08 68582 Product containin g 3-hydroxy -3-methyl glutaryl- coenzyme A reductase inhibitor (product) medicatio n myalgias (muscle pain) Not available Not available 06/07/2023 81174 009 SNOMED Meagan Hagan MD [address] [facility], [facility] [address], [address], [facility] 3 19:51:38 24849 permethri n medicatio n rash Not available [facility] 08/12/2024 01673 RxNorm Meagan Hagan MD [address] [facility], [address], [address], [facility] 4 17:09:53 Medications Name Sig Start [...] Available levothyro xine 137 mcg tablet TAKE 1 TABLET BY MOUTH ONCE DAILY 06/16 completed Not Available Not Available Not Available carvedilo l 25 mg tablet Take 0.5 tablets twice a day by oral route for 90 days. 07/27 completed Not Available Not Available Not Available nystatin 100,000 unit/mL oral suspensio n TAKE 5 ML BY MOUTH 4 TIMES DAILY AFTER A MEAL(S) FOR 10 DAYS active Not Available Not Available No t Available potassium chloride ER 10 mEq capsule,e xtended release Take 1 capsule every day by oral route for 90 days. 11/07 completed Not Available Not Available Not Available carvedilo l 6.25 mg tablet Take 1 tablet twice a day by oral route for 90 days. 11/30 completed Not Available Not Available Not Available venlafaxi ne ER 75 mg capsule,e xtended release 24 hr TAKE 1 CAPSULE BY MOUTH EVERY DAY IN THE EVENING active Not Available Not Available No t Available doxycycli ne hyclate 100 mg capsule TAKE ONE CAPSULE BY MOUTH TWICE DAILY FOR 7 DAYS 06/11 completed Not Available Not Available Not Available atorvasta tin 20 mg tablet decrease to 10 mg active Not Available Not Available No t Available venlafaxi ne 75 mg tablet TAKE ONE TABLET BY MOUTH EVERY AM 06/16 completed Not Available Not Available Not Available citalopra m 40 mg tablet active [...] TAKE 1 TABLET BY MOUTH ONCE DAILY FOR 5 DAYS active Not Available Not Available No t Available valacyclo vir 1 gram tablet TAKE 1 TABLET BY MOUTH THREE TIMES DAILY FOR 7 DAYS 06/11 completed Not Available Not Available Not Available hydrocodo ne 5 mg-acetam inophen 325 mg tablet TAKE ONE TABLET BY MOUTH EVERY DAY AT BEDTIME NEEDED FOR PAIN MAY CAUSE DROWSINE SS 06/16 completed Not Available Not Available Not Available [...] UNITS SUBCUTAN EOUSLY ONCE daily AT 1000pm 06/16 completed Not Available Not Available Not Available permethri n 5 % topical cream APPLY (THOROUG HLY MASSAGE INTO SKIN FROM HEAD TO SOLES OF FEET) BY TOPICAL ROUTE ONCE LEAVE ON FOR 8-14 HR, THEN REMOVE BY THOROUGH WASHING; repeat in 1 week 11/11 completed Not Available Not Available Not [...] tablet TAKE ONE TABLET BY MOUTH EVERY TWELVE HOURS FOR 7 DAYS -- FINISH ALL MEDICINE -- 06/16 completed Not Available Not Available Not Available [...] completed Not Available Not Available Not Available hydrocort isone acetate 25 mg rectal supposito ry Insert 1 supposit ory twice a day by rectal route as needed for 14 days. 06/11 completed Not Available Not Available [...] completed Not Available Not Available Not Available ceftriaxo ne 1 gram solution for injection Take 0.5 g by injectio n route. 06/16 completed Not Available Not Available Not Available [...] mEq tablet,ex tended release(p art/cryst ) TAKE 1 TABLET BY MOUTH EVERY OTHER DAY active Not Available Not Available No [...] completed Not Available Not Available Not Available BioWizard Ultra Test strips TEST GLUCOSE ONE TIME [...] mg/gram (0.5 %) eye ointment APPLY A THIN 1/4 INCH STRIP OF OINTMENT INTO AFFECTED EYE TWICE DAILY 3 DAYS BEFORE SURGERY BUT NOT THE DAY OF SURGERY 06/16 completed Not Available Not Available Not Available [...] 12 HOURS WITH MEALS FOR 7 DAYS 06/02 completed Not Available Not Available Not Available bumetanid e 0.5 mg tablet TAKE 1 TABLET BY MOUTH ONCE DAILY active Not Available Not Available No [...] completed Not Available Not Available Not Available ursodiol 300 mg capsule TAKE 1 CAPSULE BY MOUTH TWICE DAILY DIRECTED FOR PRIMARY BILIARY CHOLANG[facility] TIS active Not Available Not Available No t Available levothyro xine 150 mcg tablet TAKE 1 TABLET BY MOUTH ONCE DAILY IN THE MORNING active Not Available Not Available No t Available mupirocin calcium 2 % topical cream 11/30 completed Not Available Not Available Not Available bumetanid e 1 mg tablet TAKE 1 TABLET BY MOUTH ONCE DAILY active Not Available Not Available No t Available folic acid 1 mg tablet TAKE 1 TABLET BY MOUTH ONCE DAIILY 12/07 completed Not Available Not Available Not Available hydroxyzi ne HCl 25 mg tablet 1-2 po q hs prn insomnia 06/16 completed Not Available Not Available Not Available levothyro xine 200 mcg tablet TAKE 1 TAB BY MOUTH EVERY MORNING ON AN EMPTY STOMACH 10/16 completed Not Available Not Available Not Available mupirocin 2 % topical ointment APPLY SMALL AMOUNT TOPICALL Y TO THE AFFECTED AREA THREE TIMES DAILY PRN active Not Available Not Available No t [...] Not Available Not Available No t Available lotepredbella ol etabonate 0.5 % eye drops,[facility] 06/11 completed Not Available Not Available Not [...] 0.05 % eye drops INSTILL 1 DROP INTO EACH EYE TWICE DAILY active Not Available Not Available [...] TAKE ONE TABLET BY MOUTH EVERY NIGHT 06/16 completed Not Available Not Available Not Available FeroSul 325 mg (65 mg iron) tablet TAKE 1 TABLET BY MOUTH ONCE DAILY AT DINNER active Not Available Not Available No t Available Lantus Solostar U-100 Insulin 100 unit/mL (3 mL) subcutane ous pen Inject 10 units every day by subcutan eous route for 30 days. 06/16 completed Not Available Not Available Not Available oxycodone 10 mg tablet Take 1 tablet [...] completed Not Available Not Available Not Available sodium,po tassium,m ag sulfates 17.5 gram-3.13 gram-1.6 gram oral soln TAKE DIRECTED PER INSTRUCT IONS GIVEN BY DOCTORS OFFICE 06/16 completed Not Available Not Available Not Available lidocaine 5 % topical ointment APPLY TOPICALL Y TO THE AFFECTED AREA(S) TWICE DAILY NEEDED FOR PAIN 06/16 completed Not Available Not Available Not Available Adult Multivita min Gummies 07/27 completed Not Available Not Available Not Available BD Insulin Syringe Ultra-Fin e 1 mL 31 gauge x 01/24 USE DIRECTED EVERY DAY 06/16 completed Not Available Not Available Not Available Kerydin 5 % topical solution with applicato r APPLY TO AFFECTED TOENAIL( S) BY TOPICAL ROUTE ONCE DAILY One Drop 04/11 completed Not Available Not Available Not Available Movantik 25 mg tablet Take 1 tablet every day by oral route. 11/06 completed Not Available Not Available Not Available Vitals Date Recorded Body height Body mass index (BMI) Body weight Heart rate Oxygen saturation Oxygen saturation in Arterial blood by Pulse oximetry Body temperature Systolic And Diastolic Provider Name and Address Organization Details Last Updated DateTime 5 160.02 cm 23.8 kg/m2 91835.7 8 g 76 /min 95 % 95 % 98.1 [degF] 130/76 mm[Hg] [facility] 5 16:06:15 Date Recorded Body height Heart rate Oxygen saturation Oxygen saturation in Arterial blood by Pulse oximetry Body temperature Systolic And Diastolic Provider Name and Address Organization Details Last Updated DateTime 5 160.02 cm 76 /min 95 % 95 % 97.6 [degF] 134/80 mm[Hg] [facility] 5 14:33:36 Date Recorded Body height Heart rate Oxygen saturation Oxygen saturation in Arterial blood by Pulse oximetry Body temperature Systolic And Diastolic Provider Name and Address Organization Details Last Updated DateTime 5 160.02 cm 93 /min 98 % 98 % 97.9 [degF] 118/79 mm[Hg] [facility] 5 15:00:10 Date Recorded Body height Heart rate Oxygen saturation Oxygen saturation in Arterial blood by Pulse oximetry Body temperature Systolic And Diastolic Provider Name and Address Organization Details Last Updated DateTime 5 160.02 cm 96 /min 99 % 99 % 97.8 [degF] 120/73 mm[Hg] [facility] 5 15:41:39 Date Recorded Body height Heart rate Oxygen saturation Oxygen saturation in Arterial blood by Pulse oximetry Body temperature Body mass index (BMI) Body weight Systolic And Diastolic Provider Name and Address Organization Details Last Updated DateTime 5 160.02 cm 73 /min 96 % 96 % 97.3 [degF] 20.8 kg/m2 28152.7 1 g 105/72 mm[Hg] [facility] 5 10:11:54 Social History Question Answer Notes LastModified by Organizat ion Details LastModified Time Tobacco Smoking Status Never Smoker [facility] 11/07/2014 13:57:35 Do You Have An [...] Or The Highest Degree You Have Received? [id number] Information not available 12/07/2021 High Blood Pressure Yes Information not available 11/07/2014 High Cholesterol Yes Informat ion not available 11/07/2014 Marital Status Informatio n not available 11/07/2014 What Was The Date Of Your Most Recent Tobacco Screening? 06/16/2025 Information not available 06/17/2025 How Many Children Do You Have? 0 Information not available 11/07/2014 What Is Your Relationship Status? Information not available 12/07/2021 How Much Tobacco Do You Smoke? No Information not available 04/11/2019 General Stress Level High Information not available 11/07/2014 Sex: Female Functional Status Question Answer Note LastModified by Organizat ion Details LastModified Time Do you use any illicit or recreational drugs? No Information not available 12/06/2023 What is your level of alcohol consumption? None quit all alcohol in 2018 and then when she got the [employer] she then started having an evening drink before bed. Now she has stopped completely again. Information not available 06/17/2025 Are you currently employed? No Information not available 06/17/2025 What is your exercise level? Occasional Information not available 11/07/2014 Mental Status None recorded. Family History Relationship Description Onset Age of this Age Resolved Age Notes LastModified by Organization Details LastModified Time Mother Alzheimer's disease Not available 2015 13:48:18 Father Heart disease Not available 2015 13:48:18 Notes:diabetic in family Medical History Condition Response Coronary Artery Disease N Gout N Kidney Stones N Blood Diseases N Hyperthyroidism N Hypothyroidism Y COPD N Depression Y Developmental or Behavioral Disorders N Eczema, Hives [...] N Seizures/Epilepsy N Tuberculosis N Diverticulitis N Asthma N Allergies Y GERD/Reflux N Heart Disease N Pulmonary Embolism N Hypertension Y Chicken Pox Y Osteoporosis N Gynecological History Statement/Question Response If Post Menopausal, Age at Menopause 39 Obstetrics History GPAL:G 0 P 0 0 0 0 Immunizations Vaccine Type Date Status Note Provider Nam e and Address Organization Details Recorded Time Influenza, recombinant, quadrivalent, PF 0 completed Not Available [facility] 06/12/2020 11:51:39 pneumococcal polysaccharide PPV23 2 completed Jennifer Jeanerette [facility] 12/07/2021 15:47:58 Influenza, recombinant, quadrivalent, PF 3 completed Jennifer [facility] 03/09/2023 14:45:02 Influenza, split virus, quadrivalent, PF 3 completed Meagan Hagan MD [address] [facility], [facility] [address], [place], [address], [facility] 06/07/2023 16:46:05 COVID-19, mRNA, LNP-S, bivalent, PF, 30 mcg/0.3 mL dose 3 completed Meagan Hagan MD 2016 [facility], [facility] [address], [place], [address], [facility] 08/09/2023 16:35:41 Influenza, high-dose, trivalent, PF 5 completed Jennifer [facility] 06/02/2025 16:54:20 COVID-19, mRNA, LNP-S, PF, 30 mcg/0.3 mL dose 1 completed Not Available [facility] 06/13/2023 04:05:44 COVID-19, mRNA, LNP-S, PF, 30 mcg/0.3 mL dose 1 completed Not Available [facility] 06/13/2023 04:05:44 COVID-19, mRNA, LNP-S, PF, 100 mcg/0.5mL dose or 50 mcg/0.25mL dose 2 completed Not Available [facility] 06/13/2023 04:05:44 Influenza, split virus, quadrivalent, preservative 2 completed Not Available [facility] 06/13/2023 04:05:44 Tdap 4 completed Meagan Hagan MD [address], [address], [facility] 06/03/2024 12:09:58 Past Encounters Encounter ID Performer Location Encounter Start Date Encounter Closed Date Diagnosis/Indication Diagnosis SNOMED-CT Code Diagnosis ICD10 Code Diagnosis IMO Codes Diagnosis Note [id number] Meagan Hagan MD [facility] [address] [address] 11/07/2014 13:34:27 11/16/2014 14:33:36 Hypertensive disorder 47275172 Hypothyroidism 95790160 Chiari malformation 863518580 Depressive disorder 27239070 Postoperat jef meningocele 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 Falls 317762238 Fatigue 24755690 [id number] Meagan Hagan MD [facility] [address] [address] 04/30/2015 15:35:37 05/01/2015 07:59:08 Adult health examination 414501808 Chiari malformation 057068280 Depressive disorder 93087705 Hypothyroidism 52706052 Fatigue 18362965 Local infe ction of wound 90607022 Chronic diarrhea 073156937 [id number] Meagan Hagan MD [facility] [address] [address] 09/08/2015 14:15:46 09/08/2015 16:24:43 Hypothyroidism 75708986 E03.9 Hyperlipidemia 07728215 E78.5 Onychomycosis 238477679 B35.1 Hypertensive disorder 38 324822 I10 Falls 778922460 R29.6 [id number] Meagan Hagan MD [facility] [address] [address] 12/18/2015 13:21:07 12/21/2015 08:18:25 Hypertensive disorder 05873235 I10 Hyperlipidemia 59182218 E78.5 Hypothyroidism 69996456 E03.9 Candidiasis of skin 4988 3006 B37.2 Chiari malformation 2531 69484 Q07.00 Infection of skin and/or subcutaneous tissue 46693266 L08.9 Depressive disorder 3548 9007 F32.9 Body mass index 30+ - obesity 501832591 Z68.36 [id number] Meagan Hagan MD [facility] [address] [address] 06/07/2016 13:24:52 06/08/2016 08:34:52 Adult health examination 260741738 Z00.01 Essential hypertension 62320249 I10 Edema of l ower extremity 879519849 R60.0 Hyperlipidemia 24199762 E78.5 Sleep disorder 66848009 G47.9 Body mass index 40+ - severely obese 789463947 Z68.41 Depressive disorder 3548 9007 F32.9 Hypothyroidism 06179603 E03.9 Fatigue 13360066 R53.83 Disorder o f urinary tract 80422634 N39.9 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50 Chiari malformation 2531 18081 Q07.00 Fatigue 68369849 R53.83 Hypoxemia 791705776 R09. 02 Increased frequency of urination 807264736 R35.0 [id number] Meagan Hagan MD [facility] [address] [address] 10/14/2016 13:48:02 10/18/2016 08:52:58 Hypothyroidism 43053029 E03.9 Walking disability 45455 8008 R26.2 Muscle atrophy 71091980 M62.50 Chiari malformation 2531 83193 Q07.00 Fatigue 50447070 R53.83 Hypoxemia 889128654 R09. 02 Increased frequency of urination 741661534 R35.0 Glucose le ayaz outside reference range 759869355 R73.09 Essential hypertension 75052653 I10 Hyperlipidemia 27686853 E78.5 Depressive disorder 3548 9007 F32.9 Body mass index 30+ - obesity 521161666 Z68.38 Edema 167317893 R60.9 Postoperat jef meningocele 029248513 T81.89XS Candidiasis of skin 4988 3006 B37.2 Intermitte nt urinary incontinence 598449537 N39.498 Adhesive c apsulitis of left shoulder 9986285281 40300 M75.02 [id number] Meagan Hagan MD [facility] [address] [place] [address] 01/17/2017 14:26:14 01/17/2017 16:06:55 Edema 216940369 R60.9 Essential hypertension 27401909 I10 Depressive disorder 3548 9007 F32.9 Fatigue 06329924 R53.83 Hypothyroidism 23396440 E03.9 Chiari malformation 2531 55119 Q07.00 Abnormal weight loss 267 106668 R63.4 Intermitte nt dysphagia 47070842 R13.19 Gastroesop hageal reflux disease 090124449 K21.9 [id number] Meagan Hagan MD [facility] [address] [place] [address] 03/02/2018 13:31:26 03/05/2018 16:17:41 Adult health examination 176023597 Z00.01 Essential hypertension 93028839 I10 Fatigue 65822643 R53.83 Hypothyroidism 36527819 E03.9 Hyperlipidemia 96384622 E78.5 Depressive disorder 3548 9007 F32.9 Body mass index 30+ - obesity 238242738 Z68.37 Walking disability 87146 8008 R26.2 Muscle atrophy 57550655 M62.50 Chiari malformation 2531 57961 Q07.00 Hypoxemia 449375898 R09. 02 Increased frequency of urination 713177554 R35.0 Glucose le ayaz outside reference range 711955725 R73.09 Edema 341781019 R60.9 Postoperat jef meningocele 242413256 T81.89XS Candidiasis of skin 4988 3006 B37.2 Intermitte nt urinary incontinence 132559985 N39.498 Adhesive c apsulitis of left shoulder 7761185858 46570 M75.02 [id number] Meagan Hagan MD [facility] [address] [address] 04/11/2019 07:20:13 04/19/2019 08:24:51 Essential hypertension 24384317 I10 Hypothyroidism 67293312 E03.9 Hyperlipidemia 48053995 E78.5 Walking disability 32903 8008 R26.2 Muscle atrophy 00757278 M62.50 Chiari malformation 2531 44909 Q07.00 Hypoxemia 468088122 R09. 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 8481380905 9108 Q07.00 Syringomyelia 420178344 G95.0 Chronic diarrhea 5826850 09 K52.9 Body mass index 25-29 - overweight 803745213 Z68.28 Depressive disorder 3548 9007 F32.9 [id number] Meagan Hagan MD [facility] [address] [address] 07/24/2019 10:56:32 07/29/2019 08:05:28 Closed fracture of upper end of humerus 32447070 S42.201D Fracture of femur 989255 00 S72.90XA Essential hypertension 11490883 I10 Hypothyroidism 81398552 E03.9 Hyperlipidemia 72329097 E78.5 Walking disability 20552 8008 R26.2 Muscle atrophy 58581694 M62.50 Chiari malformation 2531 56083 Q07.00 Hypoxemia 226415684 R09. 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 6496920679 9108 Q07.00 Syringomyelia 198678568 G95.0 Chronic diarrhea 3239714 09 K52.9 Depressive disorder 3548 9007 F32.9 Body mass index 30+ - obesity 604597399 Z68.32 Pre-surger y evaluation 027407347 Z01.818 [id number] Meagan Hagan MD [facility] [address] [place] [address], [facility] [address] [place] [address] 11/01/2019 09:52:17 11/07/2019 09:20:50 Closed fracture of upper end of humerus 50922758 S42.201D Fracture of femur 184593 00 S72.90XA Essential hypertension 06420196 I10 Hypothyroidism 68188509 E03.9 Hyperlipidemia 69019521 E78.5 Walking disability 47366 8008 R26.2 Muscle atrophy 51527234 M62.50 Chiari malformation 2531 32594 Q07.00 Hypoxemia 737004849 R09. 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 8915069037 9108 Q07.00 Syringomyelia 221452541 G95.0 Chronic diarrhea 7598200 09 K52.9 Depressive disorder 3548 9007 F32.9 Body mass index 30+ - obesity 712777761 Z68.34 Anemia 246144387 D64.9 Generalize d osteoarthritis 491078800 M15.9 History of reverse prosthetic total arthroplasty of right shoulder 1419604896 2279474 Z96.611 Chronic pain 95808395 G8 9.29 Irregular bowel habits 734940148 R19.4 Gastroesop hageal reflux disease 976817850 K21.9 Candidiasis of skin 4988 3006 B37.2 Vitamin D deficiency 347 47579 E55.9 Pressure i njury of sacral region of back 443965100 L89.159 she is prone to this due to prolonged sitting [id number] Meagan Hagan MD [facility] [address] [address] 03/05/2020 14:52:32 03/08/2020 21:15:02 Chronic pain 90741187 G89.29 Toothache 62949509 K08.8 9 Restless l egs syndrome 72507903 G25.81 Closed fra cture of upper end of humerus 42404303 S42.201D Fracture of femur 453849 00 S72.90XA Essential hypertension 99579151 I10 Hypothyroidism 79435580 E03.9 Hyperlipidemia 77699065 E78.5 Walking disability 89900 8008 R26.2 Muscle atrophy 54762293 M62.50 Chiari malformation 2531 99327 Q07.00 Hypoxemia 708672886 R09. 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 0388427330 9108 Q07.00 Syringomyelia 703973592 G95.0 Chronic diarrhea 3393184 09 K52.9 Depressive disorder 3548 9007 F32.9 Body mass index 30+ - obesity 573194125 Z68.34 Generalize d osteoarthritis 893868610 M15.9 History of reverse prosthetic total arthroplasty of right shoulder 2786055438 7560710 Z96.611 Irregular bowel habits 742203721 R19.4 Gastroesop hageal reflux disease 399382879 K21.9 Candidiasis of skin 4988 3006 B37.2 Vitamin D deficiency 347 48030 E55.9 [id number] Meagan Hagan MD [facility] [address] [place] [address] 11/30/2020 13:16:36 12/03/2020 08:17:44 Chronic diarrhea 890252788 K52.9 Chronic pain syndrome 37 4126009 G89.4 Anemia 428316496 D64.9 Hypothyroidism 81133365 E03.9 Hyperlipidemia 37881185 E78.5 [id number] Meagan Hagan MD [facility] [address] [place] [address] 03/16/2021 14:14:54 03/18/2021 08:19:43 Hypothyroidism 02430588 E03.9 Essential hypertension 23249319 I10 Anemia 954176632 D64.9 Open wound of lower leg 525055009 S81.809A Abnormal g ait due to muscle weakness 959199088 M62.81 [id number] Meagan Hagan MD [facility] [address] [place] [address] 04/08/2021 13:33:48 04/12/2021 08:03:11 Anemia 951913492 D64.9 Peripheral neuropathic pain 179782008 M79.2 Left hemiparesis 9701705 00 G81.90 Chronic pain 36212436 G8 9.29 Restless l egs syndrome 46986711 G25.81 Closed fra cture of upper end of humerus 07005561 S42.201D Fracture of femur 129701 00 S72.90XA Essential hypertension 92955720 I10 Hypothyroidism 53169478 E03.9 Hyperlipidemia 13564454 E78.5 Walking disability 92668 8008 R26.2 Muscle atrophy 70751476 M62.50 Chiari malformation 2531 26544 Q07.00 Hypoxemia 447193810 R09. 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 1011354383 9108 Q07.00 Syringomyelia 844890721 G95.0 Chronic diarrhea 5902344 09 K52.9 Depressive disorder 3548 9007 F32.9 Body mass index 30+ - obesity 781838208 Z68.34 Generalize d osteoarthritis 386160880 M15.9 History of reverse prosthetic total arthroplasty of right shoulder 7135675812 5548243 Z96.611 Irregular bowel habits 419279040 R19.4 Gastroesop hageal reflux disease 323499237 K21.9 Vitamin D deficiency 347 31601 E55.9 Adult heal th examination 985190076 Z00.01 Postoperat jef wound infection 89343822 T81.40XD [id number] Meagan Hagan MD [facility] 2017 [facility] [address] [place] [address] 05/18/2021 13:58:04 05/20/2021 09:45:51 Lymphedema of lower extremity 593460004 I89.0 Anemia 762658951 D64.9 Peripheral neuropathic pain 763464064 M79.2 Left hemiparesis 7458050 00 G81.90 Chronic pain 96260600 G8 9.29 Restless l egs syndrome 68166753 G25.81 Closed fra cture of upper end of humerus 50970044 S42.201D Fracture of femur 751151 00 S72.90XA Essential hypertension 66927240 I10 Hypothyroidism 50687058 E03.9 Hyperlipidemia 73518749 E78.5 Walking disability 08730 8008 R26.2 Muscle atrophy 47414082 M62.50 Chiari malformation 2531 76757 Q07.00 Hypoxemia 957912642 R09. 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 1014319051 9108 Q07.00 Syringomyelia 017799322 G95.0 Chronic diarrhea 6157363 09 K52.9 Depressive disorder 3548 9007 F32.9 Body mass index 30+ - obesity 318048717 Z68.34 Generalize d osteoarthritis 463124608 M15.9 History of reverse prosthetic total arthroplasty of right shoulder 8856878092 3977070 Z96.611 Irregular bowel habits 275434843 R19.4 Gastroesop hageal reflux disease 260668308 K21.9 Vitamin D deficiency 347 08985 E55.9 [id number] Meagan Hagan MD [facility] [address] [address] 10/26/2021 14:40:53 10/28/2021 09:39:58 Essential hypertension 01459026 I10 Hyperlipidemia 59989054 E78.5 Hypothyroidism 62282277 E03.9 Fatigue 86649286 R53.83 Pain of mu ltiple joints 35517922 M25.50 Depressive disorder 3548 9007 F32.9 Chronic diarrhea 7171576 09 K52.9 Edema of l ower extremity 680534620 R60.0 Pain of ri ght shoulder joint 0072115879 9510514 M25.511 [id number] Meagan Hagan MD [facility] [address] [address] 12/07/2021 13:36:14 12/09/2021 09:12:03 Abdominal pain 14159231 R10.9 Active or passive immunization 323433793 Z23 Urinary tr act infectious disease 96312126 N39.0 [id number] Meagan Hagan MD [facility] [address] [address] 05/09/2022 13:47:37 05/12/2022 10:09:54 Chronic pain 04397894 G89.29 Pain of mu ltiple joints 20969962 M25.50 Adult heal th examination 830517728 Z00.01 Peripheral neuropathic pain 390886022 M79.2 Restless l egs syndrome 83545955 G25.81 Closed fra cture of upper end of humerus 53804386 S42.201D Fracture of femur 297788 00 S72.90XA Essential hypertension 99301333 I10 Hypothyroidism 00049796 E03.9 Hyperlipidemia 49787672 E78.5 Walking disability 70166 8008 R26.2 Muscle atrophy 79309797 M62.50 Chiari malformation 2531 84066 Q07.00 Postoperat jef meningocele 016944740 T81.89XS Intermitte nt urinary incontinence 182253536 N39.498 Sleep rela lotus hypoxemia 3886772625 88721 G47.36 she is off oxygen now 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 0633928076 9108 Q07.00 Syringomyelia 758987825 G95.0 Chronic diarrhea 6509214 09 K52.9 Depressive disorder 3548 9007 F32.9 Body mass index 30+ - obesity 108161986 Z68.30 Generalize d osteoarthritis 044893542 M15.9 History of reverse prosthetic total arthroplasty of right shoulder 9607856437 8314352 Z96.611 Irregular bowel habits 792839747 R19.4 Gastroesop hageal reflux disease 582675258 K21.9 Vitamin D deficiency 347 39712 E55.9 Chronic ac quired lymphedema 21353739 I89.0 Allergic conjunctivitis 811544366 H10.13 Alkaline p hosphatase above reference range 172141975 R74.8 Hepatitis C screening 41 0940229 Z11.59 Closed fra cture of left tibia 5592589157 0307827 S82.292S [id number] Meagan Hagan MD [facility] [address] [place] [address] 07/01/2022 14:37:00 07/04/2022 08:58:43 Administration of influenza vaccine 53976272 Z23 Anemia 187748040 D64.9 she is taking the iron supplement Chronic pain syndrome 37 8660766 G89.4 Chiari malformation 2531 13031 Q07.00 Postoperat jef meningocele 252342483 T81.89XS [id number] Meagan Hagan MD [facility] [address] [address] 12/06/2022 13:44:55 12/08/2022 09:00:34 Depressive disorder 03691237 F32.9 Conjunctivitis 1967393 H 10.9 Chronic ac quired lymphedema 38921035 I89.0 Postsurgic al lymphedema 628820862 I89.0 Anemia 984979041 D64.9 Essential hypertension 35141526 I10 Hyperlipidemia 26921756 E78.5 Hypothyroidism 06540199 E03.9 Visual disturbance 58773 001 H53.9 [id number] Meagan Hagan MD [facility] [address] [address] 01/09/2023 15:44:51 01/17/2023 11:10:41 Injury of ankle 488561526 S99.912A Injury of left foot 1185 080293 9767585 S99.922A Recurrent falls 71714454 2 R29.6 Pain of le ft ankle joint 7905208626 5129881 M25.572 Tear of skin 700341112 T 14.8XXA Fracture of ankle 097757 01 S82.92XA [id number] Meagan Hagan MD [facility] [address] [place] [address] 7 01/26/2023 09:43:44 01/29/2023 13:01:51 Peripheral neuropathic pain 018012990 M79.2 Chronic pain syndrome 37 3777711 G89.4 Closed tri malleolar fracture of left ankle 0395120904 3437075 S82.852D Impairment of balance 38 8244856 R26.89 Recurrent falls 73659678 2 R29.6 [id number] Meagan Hagan MD [facility] [address] [place], [place] [address] 03/09/2023 14:33:18 03/16/2023 11:39:11 Gastro-esophageal reflux disease with esophagitis 454048117 K21.00 Depressive disorder 3548 9007 F32.9 she could consider cutting the abilify to 1 mg; her mother has severe tardive dyskinesia . [id number] Meagan Hagan MD [facility] [address] [address] 06/06/2023 13:20:16 06/08/2023 09:48:01 Adult health examination 825809632 Z00.01 Pain of mu ltiple joints 73205312 M25.50 Peripheral neuropathic pain 926738916 M79.2 Restless l egs syndrome 30269441 G25.81 Closed fra cture of upper end of humerus 56258229 S42.201D Fracture of femur 320910 00 S72.90XA Essential hypertension 82709231 I10 Hypothyroidism 66309018 E03.9 Hyperlipidemia 53318842 E78.5 Walking disability 76700 8008 R26.2 Muscle atrophy 15826555 M62.50 Chiari malformation 2531 51793 Q07.00 Postoperat jef meningocele 081096083 T81.89XS Intermitte nt urinary incontinence 819053684 N39.498 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 Generalize d osteoarthritis 570127352 M15.9 History of reverse prosthetic total arthroplasty of right shoulder 8205440138 5983438 Z96.611 Irregular bowel habits 729620850 R19.4 Gastroesop hageal reflux disease 946549536 K21.9 Vitamin D deficiency 347 83524 E55.9 Chronic ac quired lymphedema 77903330 I89.0 Closed fra cture of left tibia 2071914213 2376017 S82.292S Cramp in lower limb 4499 75786 R25.2 Osteoporosis 21733267 M8 1.0 Edema of l ower extremity 502870202 R60.0 Gastro-eso phageal reflux disease with esophagitis 834181651 K21.00 Iron defic iency anemia 17304517 D50.9 Administra tion of influenza vaccine 69581109 Z23 Glucose le ayaz outside reference range 021913876 R73.09 Screening for cardiovascular system disease 013694604 Z13.6 Myalgia ca used by statin 3629753570 8871107 T46.6X5D Mammogram declined 60167 5004 Z53.20 Body mass index 25-29 - overweight 912686267 Z68.27 [id number] Meagan Hagan MD [facility] [address] [place] [address] 08/08/2023 13:37:24 08/10/2023 09:28:31 Prediabetes 978471230 R73.03 Active or passive immunization 463948953 Z23 Lymphedema of lower extremity 896364383 I89.0 Hypothyroidism 07722282 E03.9 Pain of le ft knee joint 1220077133 20457 M25.562 Mammogram declined 20205 5004 Z53.20 [id number] Meagan Hagan MD [facility] [address] [place] [address] 7 09/14/2023 13:42:40 09/18/2023 08:19:46 Contusion of anterior abdominal wall 902043687 S30.1XXA Traumatic hematoma 30298 9004 T14.8XXA Lymphedema of lower extremity 106796405 I89.0 Abnormal g ait due to muscle weakness 200576008 M62.81 [id number] Meagan Hagan MD [facility] [address] [address] 12/05/2023 13:37:34 12/08/2023 07:58:16 Post-discharge follow-up 548364971 Z09 Infection of skin and/or subcutaneous tissue 29376868 L08.9 she has mupirocin to use History of fragility fracture 850338215 Z87.310 Cirrhosis of liver 84222 007 K74.60 History of anemia 948849 002 Z86.2 Prediabetes 833154006 R7 3.03 Osteoporosis 24511468 M8 1.0 Hypothyroidism 94366038 E03.9 Hyperlipidemia 09573670 E78.5 Pain of mu ltiple joints 07055591 M25.50 Lymphedema of lower extremity 874547980 I89.0 [id number] Meagan Hagan MD [facility] [address] [address] 02/02/2024 14:42:28 02/06/2024 09:13:07 Abnormal gait due to impairment of balance 086980150 R26.89 Dependence on wheel chair 818211035 Z99.3 Open wound of left hand 5628912833 2456899 S61.402A [id number] Meagan Hagan MD [address] [address] 06/03/2024 11:11:45 06/10/2024 11:30:53 History of fall 097933636 Z91.81 Abrasion o f skin of right upper arm 5400257992 1418452 S40.811S Pain of le ft knee joint 8923086182 98207 M25.562 Osteoarthr itis of wrist 395961319 M19.039 Contusion of right shoulder 0011651606 2581776 S40.011D [id number] Meagan Hagan MD [facility] [address] [address] 06/11/2024 10:03:22 06/13/2024 14:26:43 Depressive disorder 81047282 F32.9 she could consider cutting the abilify to 1 mg; her mother has severe tardive dyskinesia . 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 4314802898 9108 Q07.00 Syringomyelia 846982244 G95.0 Chronic diarrhea 1017963 09 K52.9 Generalize d osteoarthritis 285084566 M15.9 History of reverse prosthetic total arthroplasty of right shoulder 4064134817 0228670 Z96.611 Irregular bowel habits 297397656 R19.4 Gastroesop hageal reflux disease 763747837 K21.9 Vitamin D deficiency 347 37188 E55.9 Chronic ac quired lymphedema 44714049 I89.0 Closed fra cture of left tibia 5830953089 9355514 S82.292S Iron defic iency anemia 49142956 D50.9 Screening for cardiovascular system disease 123549995 Z13.6 Myalgia ca used by statin 7441701932 7209838 T46.6X5D Mammogram declined 87228 5004 Z53.20 Body mass index 25-29 - overweight 475287955 Z68.27 Type 2 nestor betes mellitus without complication 299009116 E11.9 Influenza vaccination declined 692373373 Z28.21 Irreducibl e umbilical hernia 221726239 K42.0 Thrombocyt openic disorder 692718022 D69.6 Medication review done by doctor 031680409 Z76.89 [id number] Meagan Hagan MD [facility] [address] [facility], [address] [place] [address] 08/12/2024 16:14:19 08/13/2024 09:30:42 Allergic reaction to drug 821888212 T50.905A Skin lesion 06583386 L98 .9 Recurrent falls 43739550 2 R29.6 Contusion of face 231073 004 S00.83XS Hernia of anterior abdominal wall 653573882 K43.9 [id number] Meagan Hagan MD [facility] [place] [address] 7 08/26/2024 13:51:18 08/29/2024 15:53:18 Candidiasis of skin 25513529 B37.2 Allergic r eaction to drug 301285239 T50.905A This has resolved. Irreducibl e umbilical hernia 115807399 K42.0 Recurrent falls 04508846 2 R29.6 [id number] Meagan Hagan MD [place] [address] 7 11/11/2024 15:35:08 11/14/2024 09:34:18 Post-discharge follow-up 957877744 Z09 Cramp 23977574 R25.2 Anemia 165694268 D64.9 History of repair of umbilical hernia 625438331 Z98.890 Lymphedema of lower extremity 723420218 I89.0 Cirrhosis of liver 007 K74.60 [id number] Meagan Hagan MD [place] [address] 7 12/10/2024 14:22:23 12/12/2024 08:57:30 Hyperglycemia due to diabetes mellitus 627756555 E11.65 6805106784 Incontinence 93449691 R3 2 47509968 Recurrent falls 70942101 2 R29.6 8984627 [id number] Meagan Hagan MD [place] [address] 7 01/09/2025 14:56:20 01/13/2025 08:57:32 Uncontrolled type 2 diabetes mellitus 201512563 E11.65 28513770 Essential hypertension 04532665 I10 88653 Cirrhosis of liver 007 K74.69 4568452 [id number] Meagan Hagan MD [place] [address] 7 06/02/2025 15:17:48 06/03/2025 08:42:10 Abscess of labia 413318683 N76.4 9888169 Influenza vaccination given 9801003779 9109 Z23 05622019 Insulin tr eated type 2 diabetes mellitus 610338188 E11.9 Z79.4 190196 [id number] Meagan Hagan MD [facility] [address] [facility], [address] [place] [address] 06/16/2025 10:04:41 06/19/2025 09:15:11 Hypothyroidism 95451208 E03.9 Adult heal th examination 546755651 Z00.01 Pain of mu ltiple joints 25147400 M25.50 Peripheral neuropathic pain 518054178 M79.2 Essential hypertension 77534084 I10 Hyperlipidemia 85021735 E78.5 Walking disability 00013 8008 R26.2 Muscle atrophy 19965117 M62.50 Chiari malformation 2531 95031 Q07.00 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 Intermitte nt urinary incontinence 517544401 N39.498 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 6972715159 9108 Q07.00 Syringomyelia 292881987 G95.0 Generalize d osteoarthritis 646257963 M15.9 History of reverse prosthetic total arthroplasty of right shoulder 2969737618 6681212 Z96.611 Gastroesop hageal reflux disease 306171570 K21.9 Vitamin D deficiency 347 07217 E55.9 Chronic ac quired lymphedema 39966162 I89.0 Iron defic iency anemia 65653005 D50.9 Myalgia ca used by statin 9448522877 0410474 T46.6X5D Mammogram declined 00939 5004 Z53.20 Influenza vaccination declined 530908724 Z28.21 Thrombocyt openic disorder 272071578 D69.6 Medication review done by doctor 808723403 Z76.89 History of fracture 3910 12796 Z87.81 3084749 Type 2 nestor betes mellitus controlled by diet 7495000300 58675 E11.9 4150039 Cirrhosis - non-alcoholic 205948486 K75.81 K74.69 0523473 taking SUZIE has stopped her severe itching Systolic a rterial pressure below reference range 53789550 I95.9 20198186 she may need to decrease the spironolac tone to just once daily and she can work on that dose Low blood pressure 68437 003 R03.1 02397369 Candidiasis of mouth 797 24179 B37.0 821429 Review of medication 182 525717 Z79.899 00349521 Recurrent depression 191 507888 F33.40 0147251623 Body mass index 20-24 - normal 835491218 Z68.20 52544943 Health Concerns Section Related Observation LastModified by Organization Detai ls LastModified Time None Recorded Concern Status LastModified by Organization Details LastModified Time None Recorded Advance Directives Directive Y: Payers Insurance Date Sequence Insurance Name Policy Number Policy Cantu Covered Member ID Cantu Member ID Guarantor Name 06/19/2025 1 [facility] - MEDICARE ADVANTAGE (MEDICARE REPLACEMENT PPO) [id number] Tiffanie Dennison [id number] Tiffanie Dennison 06/19/2025 2 [employer] ( - MEDICARE SUPPLEMENT) Tirso Juma [id number] Tiffanie Dennison Notes Date Note Type Note Provider Name and Address Organization Details Recorded Time 11/11/2024 text/html she has had a successful umbilical hernia repair on Oct 23. She has been with [facility] and primarily staying in her wheelchair So the left leg is swelling more. She is a little too uncomfortable to be in her bed but she really needs to be getting back in her recliner at least to sleep States she is walking up to 30 minutes with PT at home with her walker. She is often up most of the nights and knows she has to do better with that She sees Dr Lindo on the 12 and hopes to get released as prefers to go back to outpatient PT and the lymphedema clinic as well. Meagan Hagan MD [address] [facility], [address], [place], [address], [facility] 11/13/2024 15:16:28 12/10/2024 text/html she has an airwick but has not been using it and cannot use it all the time. She is having incontinence She is having some chills lately. She was discharged from the lymphedema and wound care clinic. she is not quite ready to walk and needs some core strengthening and she is doing some chair muscles at home to help this. She will at some point want to start some PT for walking after strength exercises with standing at her kitchen sink. She is marching in place and doing leg lifts. Her right arm is sore after another fall with abrasions and skin tears that are improving. She fell this morning and laid there for 3 hours and called for help and her father did show up and helped to get her up.She has an allergy appointment with an information systems security officer this Monday as she has stopped her steroids and antihistamines.She stopped hydroxyzine and benadryl and prednisone in preparation for the allergy visit but since stopping those she has more incontinence But she also has some poorly controlled diabetes and has been cutting back sugar drinks with tea and is drinking water as well more now. Her microwave is broken and so is her washing machine now. With the incontinence she is falling with all transfers.Glucose finger stick is registering High and is likely near the 500 range. She cannot care for herself and is at risk for hyperglycemic complications and requires ER visit for further evaluation and treatment. She has had some diet controlled diabetes but obviously has developed significant diabetes. A year ago she had prediabetes. Meagan Hagan MD [address] [facility], [address], [place], [address], [facility] 12/12/2024 07:52:30 01/09/2025 text/html she had been feeling terrible when she was last here and apparently had only been drinking chocolate milk and sweet tea. Her sugars were over 500. She went to [facility] and was diagnosed with a significant UTI. She was then sent to a rehab at [facility]. She was fed high carb diet although [...] with the Keflex. Meagan Hagan MD [address] [place] [address], [place], [address], [facility] 01/12/2025 12:35:55 06/02/2025 text/html she was sitting outside last in the heat and when she went inside to urinate the Depends was sticking to the labia and tore it. She developed an open wound there and it then became an abscess. She had drainage on with purulence but it has sealed back over. She has a LIME BOILER and and MAKEUP ARTISTRY INSTRUCTOR who are friends who have been helping her using a barrier cream and topical neosporin with pramoxine in it. She is very uncomfortable. She thinks she had some fever and chills over the weekend but not today. Meagan Hagan MD [address], [address], [facility] 06/02/2025 16:53:41 06/16/2025 text/html needs referral again for PT at [place] for lower body strengthening. She actually walked up some steps last week and is really pleased and is using a walker.Her tongue started getting very sore last week and she recently finished the bactrim DS that healed the labial sore.She is now following endocrinology at for the diabetes and they stopped all diabetic meds including insulin Last A1C was 8.8% and she has another appt in the near future for A1C monitoring.She stopped the sugar-laden drinks and will still occasionally have a sweet but before she was drinking a lot of sweet tea and chocolate milk and she had a UTI then so sugars were extremely elevated.She cannot get her am BP over 90 and is likely over-diuresed. We will cut the bumex to 0.5 Meagan Hagan MD [address] [facility], [place] [address], [place], [address], [facility] 06/18/2025 10:38:35 OBGyn Episode No OBEpisode recorded.
--- OUTSIDE RECORDS SUMMARY | 2025-06-23 12:48 | XMS_ITS | Encounter Summary ---
Author Organization [employer] ([place], [place], [place], [place]) Address [address] [place] [address] Care Team Providers Care Putty And Caulking Supervisor Name Role Phone Unavailable Primary Care Provider Unavailabl e Encounter Details Date Type Department Care Team (Late st Contact Info) Description 04/05/2019 Transcribed Document [facility] [place] [facility] [place] [address] ProviderLeah MD [facility] [place] [address] Social History Tobacco Use Types Packs/Day Years Used Date Smoking Tobacco: Never Assessed Comments Unknown Sex and Gender Information Value Date Recorded Sex Assigned at Not on file Legal Sex Female 6:39 PM CDT Gender Identity Not on file Sexual Orientation Not on file documented as of this encounter Miscellaneous Notes * Cerner Conversion Note - Leah ProviderMD - 04/05/2019 3:14 PM CDT Pain [...]
--- OUTSIDE RECORDS SUMMARY | 2025-06-23 12:48 | XMS_ITS | Encounter Summary ---
Author Organization [employer] ([place], [place], [place], [place]) Address [address] [place] [address] Care Team Providers Care Pulverizer Mill Operator Name Role Phone Unavailable Primary Care Provider Unavailabl e Encounter Details Date Type Department Care Team (Late st Contact Info) Description 04/05/2019 Transcribed Document [facility] [place] Medicine [facility] [place] [address] ProviderLeah MD [facility] [place] [address] Social History Tobacco Use Types [...] Communication Barrier : None Primary Language : [place] Any Spiritual/Cultural Needs or Requests : No [...] 04/05/2019 12:50:04 EDT by AROLDO TOSCANO, Shelley) Musculoskeletal Musculoskeletal Assessment Comment : Pt c/o right leg pain after fall, seen at [facility] yesterday, splint in place, i think my right arm is broke too because of all the lifting. pain 11/18, took lortab 7.5/325mg at 0700 AROLDO TOSCANO, Shelley - 04/05/2019 12:49 EDT documented in this encounter Plan of Treatment Not on file documented as of this encounter Visit Diagnoses Not on filedocumented in this encounter
--- OUTSIDE RECORDS SUMMARY | 2025-06-23 12:48 | XMS_ITS | Encounter Summary ---
Author Organization [employer] ([place], [place], [place], [place]) Address [address] [place] [address] Care Team Providers Care Creative Guru Name Role Phone Unavailable Primary Care Provider Unavailabl e Encounter Details Date Type Department Care Team (Late st Contact Info) Description 04/10/2019 Transcribed Document [facility] [place] [address] [place] [address] ProviderLeah MD [address] [place], [place] [address] Social History Tobacco Use Types Packs/Day Years Used Date Smoking Tobacco: Never Assessed Comments Unknown Sex and Gender Information Value Date Recorded Sex Assigned at Not on file Legal Sex Female 6:39 PM CDT Gender Identity Not on file Sexual Orientation Not on file documented as of this encounter Miscellaneous Notes * Cerner Conversion Note - Historical ProviderMD - 04/10/2019 2:00 AM CDT Bpm Architect Details Entered On: 04/10/2019 1:56 EDT Performed On: 04/10/2019 2:00 EDT by Caroilna Reyes Rn-Resource Order Details Transport Mode Order Detail : Wheelchair Isolation Precautions Order Detail : Standard Precautions Order Detail : 0 IV Order Detail : 1 Oxygen Order Detail : 1 Nurse Collect Order Detail : 0 Lift/Transfer : Moderate assist Central Line Order Detail : No Room Service : Not Appropriate Arterial Line : No Carolina Reyes Rn-Resource - 04/10/2019 1:56 EDT documented in this encounter Plan of Treatment Not on file documented as of this encounter Visit Diagnoses Not on filedocumented in this encounter
--- OUTSIDE RECORDS SUMMARY | 2025-06-23 12:48 | XMS_ITS | Encounter Summary ---
Author Organization [email or web address] ([place], [place], [place], [place]) Address [address] [place] [address] Care Team Providers Care Engine Pilot Name Role Phone Unavailable Primary Care Provider Unavailabl e Encounter Details Date Type Department Care Team (Late st Contact Info) Description 04/05/[address] [facility] [place] Family Medicine [facility] [place] [address] ProviderLeah MD [facility] [place] [address] Social History Tobacco Use Types Packs/Day Years Used Date Smoking Tobacco: Never Assessed Comments Unknown Sex and Gender Information Value Date Recorded Sex Assigned at Not on file Legal Sex Female 6:39 PM CDT Gender Identity Not on file Sexual Orientation Not on file documented as of this encounter Miscellaneous Notes * Cerner Conversion Note - Leah ProviderMD - 04/05/2019 5:52 PM CDT Evaluation, [...] Railing Outside : No LUCIA TUCKER OTR/Bindu - 04/06/2019 13:10 EDT Prior LOF Bathing, OT [...] Pt reported that she was driving at [facility] Prior LOF Assist with ADL Comment : Pt Mod I to IND w/self-care at [facility]. History and Environment Comment, OT : Pt's ADA accessible home was recently finished and is now move-in ready. LUCIA TUCKER OTR/Bindu - 04/06/2019 13:10 EDT Upper Extremity Upper Extremity Dominance : Right Right UE Active ROM : Impaired Right UE Strength : Impaired Left UE Active ROM : Impaired Left UE Strength : Impaired LUCIA TUCKER OTR/Bindu - 04/06/2019 13:10 EDT Left Upper Extremity Detailed ROM Grid Left Shoulder Flexion Range Left Shoulder Abduction Range Left Elbow Flexion Range Left Elbow Extension Range Active : <10% AROM <10% AROM WFL WFL Comment : Full PROM Full PROM LUCIA TUCKER OTR/Bindu - 04/06/2019 13:10 EDT [...] greater than elbow extension LUCIA TUCKER OTR/Bindu - 04/06/2019 13:10 EDT Self Care/Home Management, OT [...] due to unsuccessful attempt to stand-pivot to [facility]. Toilet Transfer Assist Level : Assist, total [...] requried for slow pacing [LUCIA TUCKER OTR/Bindu 04/06/2019 13:10 EDT] ) Sit to Stand : Rehab Moderate assistance (Comment: Min-Mod A x2 + cues for hand placement + bed elevated; pt required > assist on right side than left due to R-side limitations [LUCIA TUCKER OTR/Bindu 04/06/2019 13:10 EDT] ) Stand to Sit : Rehab Minimal assistance (Comment: CG-Min A x2 + cues for hand placement/safety [LUCIA TUCKER OTR/Bindu - 04/06/2019 13:10 EDT] ) Sit to Supine [...] returned to sitting at EOB. LUCIA TUCKER OTR/L - 04/06/2019 13:10 EDT Activity Tolerance, OT Activity Comment : Poor to fair tolerance/endurance; pt limited by left-side weakness, impaired bilateral UE/LE strength, impaired RLE/RUE/LUE AROM, impaired standing balance, difficulty maintaining NWB on RLE, fatigue w/light activity. LUCIA TUCKER OTR/L 04/06/2019 13:10 EDT Neurological/Sensory Overall Sensory Response : Impaired Overall Sensory Response Comment : reported chronic LUE numbness/tingling. Response to Pain : Intact Light Touch Response : Intact LUCIA TUCKER OTR/Bindu 04/06/2019 13:10 EDT Cognition Assessment, OT Orientation : Oriented x 4 Follows Basic Command Assessment, OT : Intact Attention Assessment : Present LUCIA TUCKER OTR/L 04/06/2019 13:10 EDT Education OT Occupational Therapy Education Grid Activity of Daily Living Training : Verbalizes understanding, Returns demonstration, Needs further teaching Balance Training : Verbalizes understanding, Returns demonstration, Needs further teaching (Comment: standing balance addressed [LUCIA TUCKER OTR/L - 04/06/2019 13:10 EDT] ) Functional Mobility Training : Verbalizes understanding, Returns demonstration, Needs further teaching Home Program/Exercises : Verbalizes understanding, Returns demonstration, Needs further teaching (Comment: Pt received theraband & left plate shop helper to use on left side; pt instructed in left ankle/UE strengthening using band & left plate shop helper; pt reminded to NOT use these materials on right side due to NWB & activity limitation statuses; pt VU. [LUCIA TUCKER OTR/Bindu - 04/06/2019 13:10 EDT] ) Precaution/Contraindication : Verbalizes understanding, Returns demonstration, Needs further teaching (Comment: NWB on RUE/LE; no pushing, pulling, lifting, range of right shoulder; pt VU and returned demo during session. [LUCIA TUCKER OTR/Bindu Gomez 04/06/2019 13:10 EDT] ) Role of Occupational Therapy : Verbalizes understanding LUCIA TUCKER OTR/Bindu 04/06/2019 13:10 EDT Teaching/Learning Assessment Barriers To [...] Potential, OT : Fair LUCIA TUCKER OTR/Bindu 04/06/2019 13:10 EDT Plan of Care, OT [...] order to return to PLOF. LUCIA TUCKER OTR/Bindu 04/06/2019 13:10 EDT [facility] Goals, OT Other LTG Grid Goal #1 [...] goal Comment : Note: Pt has leg plate shop helper in room. Pt may not be able [...] performance, in order to return to PLOF. Pt would benefit from continued rehab therapy [...] Equipment : ADL Equipment ADL Equipment : Supervisor Grove, leg, Video Game Designer, Shoehorn, long handled, Sponge, long handled LUCIA TUCKER OTR/Bindu - 04/06/2019 13:10 EDT [place] OT Charges OT Selfcare/Hm Mgmt Ea 15 Min : 2 OT Eval Moderate Complexity : 1 LUCIA TUCKER OTR/Bindu - 04/06/2019 13:10 EDT documented in this encounter Plan of Treatment Not on file documented as of this encounter Visit Diagnoses Not on filedocumented in this encounter
--- OUTSIDE RECORDS SUMMARY | 2025-06-23 12:48 | XMS_ITS | Encounter Summary ---
Author Organization Healthcare Address [address] [place] [address] Care Team Providers Care Hydraulic Jack Mechanic Name Role Phone Meagan Hagan MD Primary Care Provider [phone] Encounter Details Date Type Department Care Team (Latest Contact Info) Description 04/30/2025 Travel Social History Tobacco Use Types Packs/Day [...] much Nearly every day 04/30/2025 8:25 AM LALIT Salvatore Thomas Feeling tired or having little [...] Cruzito Thomas documented as of this encounter Plan of Treatment Upcoming Encounters Date Type Department Care Team (Late st Contact Info) Description 11/17/2025 9:00 AM EDT Office Visit [facility] Endocr[facility]ology [address] [place] [address] Roopa Martinez PA [address] [facility] [address] [place] [address] documented as of this encounter Visit Diagnoses Not on filedocumented in this encounter Additional Health Concerns Assessment Noted Time PHQ-9 Depression Total Score: 11 2 025 8:25 AM EDT A fall risk assessment has been complete d for the patient 01/21/2025 8:11 AM EDT A Body Mass Index follow-up plan has been documented for the patient 04/30/2025 9:20 AM EDT documented as of this encounter Care Teams Hydraulic Jack Mechanic Relationship Specialty Start Date End Date Meagan Hagan MD [address] [place], [place] [address] [place] [address] PCP - General 01/22/21 documented as of this encounter
--- OUTSIDE RECORDS SUMMARY | 2025-06-23 12:48 | XMS_ITS | Encounter Summary ---
Author Organization Healthcare Address [address] [place] [address] Care Team Providers Care Fitness Leader Name Role Phone Meagan Hagan MD Primary Care Provider [phone] Encounter Details Date Type Department Care Team (Late st Contact Info) Description 04/30/2025 Telephone [facility] Endocrinology [address] [place] [address] Roopa Martinez PA [address] [facility] [address] [place] [address] Social History Tobacco Use Types Packs/Day Years Used Date Smoking Tobacco: Former Cigarettes 2 10 1 1992 Smokeless Tobacco: Never Alcohol Use Standard [...] Nearly every day 04/30/2025 8:25 AM EDT Thea Thomas Feeling down, depressed, or hopeless Not at all 04/30/2025 8:25 AM EDT Elizabeth Thomas Patient Health Questionnaire-2 Score 3 04/30/2025 [...] encounter Miscellaneous Notes * Telephone Encounter - Yeimi King RN - 04/30/2025 11:59 AM EDT Returned pt's pharmacy's call. They are requesting a new Rx for Accu Check Guide Meter to match thestrips and lancets. New Rx for Accu Check Guide meter sent . No other concerns voiced. documented in this encounter Plan of Treatment Upcoming Encounters Date Type Department Care Team (Late st Contact Info) Description 11/17/2025 9:00 AM EDT Office Visit [facility] Endocrinology [address] [place] [address] Roopa Martinez PA [address] [place] [address] documented as of this encounter [...] documented as of this encounter Care Teams Fitness Leader Relationship Specialty Start Date End Date Meagan Hagan MD [address] [place] [address] [address] [place] [address] PCP - General 01/22/21 documented as of this encounter
--- OUTSIDE RECORDS SUMMARY | 2025-06-23 12:48 | XMS_ITS | Encounter Summary ---
Author Organization Healthcare Address [address] [place] [address] Care Team Providers Care Elevator Technician Name Role Phone Meagan Hagan MD Primary Care Provider [phone] Encounter Details Date Type Department Care Team (Late st Contact Info) Description 04/30/2025 Orders Only [facility] Endocrinology [address] [place] [address] Roopa Martinez PA [address] [facility] [address] [place] [address] Type 2 diabetes mellitus with hyperglycemia, without long-term current use of insulin ([facility]) Social History Tobacco Use Types Packs/Day Years [...] usual. Not at all 04/30/2025 8:25 AM LALIT Salvatore Thomas Thoughts that you would be better off or hurting yourself in some way Several days 04/30/2025 8:25 AM EDT Thea Thomas Patient Health Questionnaire-9 Score 11 04/30/2025 8:25 AM EDT Cruzito Thomas documented as of this encounter Plan of Treatment Upcoming Encounters Date Type Department Care Team (Late st Contact Info) Description 11/17/2025 9:00 AM EDT Office Visit [facility] Endocrinology [address] [place] [address] Roopa Martinez PA [address] [place] [address] documented as of this encounter Visit Diagnoses Diagnosis Type 2 diabetes mellitus with hyperglycemia, without long-term current use of insulin documented in this encounter Additional Health Concerns Assessment Noted Time PHQ-9 Depression Total Score: 11 025 8:25 AM EDT A fall risk assessment has been complete d for the patient 01/21/2025 8:11 AM EDT A Body Mass Index follow-up plan has been documented for the patient 04/30/2025 9:20 AM EDT documented as of this encounter Care Teams Elevator Technician Relationship Specialty Start Date End Date Meagan Hagan MD [address] [place], [place] [id number] [place] [address] PCP - General 01/22/21 documented as of this encounter
--- OUTSIDE RECORDS SUMMARY | 2025-06-23 12:48 | XMS_ITS | Encounter Summary ---
Author Organization [employer] ([place], [place], [place], [place]) Address [address] [place] [address] Care Team Providers Care Building Construction Professor Name Role Phone Unavailable Primary Care Provider Unavailabl e Encounter Details Date Type Department Care Team (Late st Contact Info) Description 04/06/2019 Transcribed Document [facility] [place] [facility] [place] [address] ProviderLeah MD [facility] [place] [address] Social History Tobacco Use Types Packs/Day Years Used Date Smoking Tobacco: Never Assessed Comments Unknown Sex and Gender Information Value Date Recorded Sex Assigned at Not on file Legal Sex Female 6:39 PM CDT Gender Identity Not on file Sexual Orientation Not on file documented as of this encounter Miscellaneous Notes * Cerner Conversion Note - Leah ProviderMD - 04/06/2019 1:50 PM CDT Treatment [...] : 04/05/2019 16:34 Assisted by, OT : stores assistant (PICTURE PAINTER) Personal Devices : Personal Devices Glasses Assistive [...] All needs met and within reach, Other: PICTURE PAINTER present RN/PCT Informed Comment : nursing ok'd tx. id and verified. Treatment End Time : 04/08/2019 10:06 EDT Treatment Time : 27 Minute(s) TINA ADAME OTR/Bindu - 04/08/2019 10:34 EDT Mobility Device/Prosthesis/Wt Bearing Weight Bearing Status Maintained : Yes Weight Bearing Status : Non right upper extremity Functional Mobility Device : Gait belt Functional Mobility with Brace/Splint : Yes Prosthetic with Functional Mobility : sling/swathe to Right UE. TINA ADAME OTR/Bindu - 04/08/2019 10:34 EDT Functional Mobility Mobility Grid Supine to Sit : Rehab Maximal assistance (Comment: x 2 [TINA ADAME OTR/L - 04/08/2019 10:34 EDT] ) Sit to Stand : Rehab Maximal assistance (Comment: x 2 [TINA ADAME OTR/Bindu - 04/08/2019 10:34 EDT] ) Stand to Sit : Rehab Maximal assistance (Comment: x 2 [TINA ADAME OTR/Bindu - 04/08/2019 10:34 EDT] ) Sit to Supine : Rehab Maximal assistance TINA ADAME OTR/Bindu - 04/08/2019 10:34 EDT Plan of Care, OT OT Tx Plan/Goals Established w Patient : Yes Plan of Care Comment, OT : continue with current poc. TINA ADAME OTR/Bindu - 04/08/2019 10:34 EDT [facility] Goals, OT Other LTG Grid Goal #1 [...] VU after w/demo on 04/07/19 Pt w/leg resolution agent, reaching, shoe horn, & sponge. VU of UB kacey-dressing on 04/07/19 TINA ADAME OTR/Bindu - 04/08/2019 10:34 EDT TINA ADAME OTR/Bindu - 04/08/2019 10:34 EDT TINA ADAME, ROBERTA/Bindu - 04/08/2019 10:34 EDT TINA ADAME OTR/Bindu [...] - 04/08/2019 10:34 EDT Electronically signed by [facility], [facility] Conversion Supervisor Gear Repair Cerner at 12/26/2022 1:03 PM CDT documented in this encounter Plan of Treatment Not on file documented as of this encounter Visit Diagnoses Not on filedocumented in this encounter
--- OUTSIDE RECORDS SUMMARY | 2025-06-23 12:48 | XMS_ITS | Encounter Summary ---
Author Organization [employer] ([place], [place], [place], [place]) Address [address] [place] [address] Care Team Providers Care Director Trade Name Role Phone Unavailable Primary Care Provider Unavailabl e Encounter Details Date Type Department Care Team (Late st Contact Info) Description 04/05/2019 Transcribed Document [facility] [place] Family Medicine [facility] [place] [address] ProviderLeah MD [place] [address] Social History Tobacco Use Types [...]
--- OUTSIDE RECORDS SUMMARY | 2025-06-23 12:48 | XMS_ITS | Encounter Summary ---
Author Organization [employer] ([place], [place], [place], [place]) Address [address] [place] [address] Care Team Providers Care Torch Shearer Name Role Phone Unavailable Primary Care Provider Unavailabl e Encounter Details Date Type Department Care Team (Late st Contact Info) Description 04/06/2019 Transcribed Document [facility] [place] Family Medicine [facility] [address] ProviderLeah MD [facility] [place] [address] Social History Tobacco Use Types [...] Policy Numbers : Insurance 1 Health Plan: [facility] MEDICARE ADVANTAGE Policy Number: [id number] Authorization Number: Insurance 2 Health Plan: FOR LIFE Policy Number: [id number] Authorization Number: Insurance Primary Name : [facility] Medicare Advantage Authorization Status-Primary : Awaiting callback Reference Number-Primary : pended Authorized Service Begin Date-Primary : 04/05/2019 EDT Authorization Comments-Primary : Uploaded clinicals to [facility] Medicare via [employer]. Historical Authorization Comments-Primary : No Authorization Comments Found ELIZABETH CASSIDY RN-Utilization Review - 04/06/2019 9:10 EDT documented in this encounter Plan of Treatment Not on file documented as of this encounter Visit Diagnoses Not on filedocumented in this encounter
--- OUTSIDE RECORDS SUMMARY | 2025-06-23 12:48 | XMS_ITS | Encounter Summary ---
Author Organization [employer] ([place], [place], [place], [place]) Address [address] [place] [address] Care Team Providers Care Commercial Drone Software Developer Name Role Phone Unavailable Primary Care Provider Unavailabl e Encounter Details Date Type Department Care Team (Late st Contact Info) Description 04/05/2019 Transcribed Document [facility] [place] Family Medicine [facility] [place] [address] ProviderLeah MD [facility] [place] [address] Social History Tobacco Use Types Packs/Day Years Used Date Smoking Tobacco: Never Assessed Comments Unknown Sex and Gender Information Value Date Recorded Sex Assigned at Not on file Legal Sex Female 6:39 PM CDT Gender Identity Not on file Sexual Orientation Not on file documented as of this encounter Miscellaneous Notes * Cerner Conversion Note - Leah ProviderMD - 04/05/2019 4:44 PM CDT Admission [...] being lifted for 3 days. seen at [facility] yesterday and diagnosed with femur fracture, pain 11/18, took lortab at 0700. Information Obtained From : Patient Primary Language : Persian Communication Barrier : None Cinda Mckenzie RN - 04/05/2019 22:38 EDT Fall Risk Scales ABCs Fall Injury Risk Identification : Bones ABC Fall Injury Risk : Moderate to high injury risk REAL Hx Falls Immediate/Within 3 Months : Yes Real Secondary Diagnosis : Yes ADDIE Use of Ambulatory Aid : Bed rest/Nurse assist REAL IV Therapy or IV Access : Yes Addie Gait/Transferring : Impaired Addie Mental Status : Oriented to own ability Real Fall Risk Score : 80 REAL Fall Scale Risk Level : 46 or > High Risk Elma Fall Interventions : Adequate lighting, Assistive devices [...] (Last Updated: 04/05/2019 22:42:45 EDT by Cinda Mckenzie RN) Substance Abuse: Drug Use Hx: No. Use in Last 12 Months: No. (Last Updated: 04/05/2019 12:50:04 EDT by AROLDO TOSCANO, Shelley) Height and Weight, Clinical Dosing Height Source : Stated Height Entry Format : [place] Height, Feet : 5 ft(Converted to: 152 cm, 60 Inch) Height, Inches : 3 Inch(Converted to: 0 ft 3 Inch, 7.62 cm) Clinical Height : 160.02 cm Weight Source : Bed scale Weight Entry Format : [place] Clinical Dosing Weight : 77.27 kg Weight, Pounds : 170 lb Body Surface Area (BSA) : 1.81 m2 Body Mass Index : 30.2 kg/m2 (HI) [place] Body Weight : 52 kg Cinda Mckenzie [...]
--- OUTSIDE RECORDS SUMMARY | 2025-06-23 12:48 | XMS_ITS | Encounter Summary ---
Author Organization [employer] ([place], [place], [place], [place]) Address [address] [place] [address] Care Team Providers Care Property Coordinator Name Role Phone Unavailable Primary Care Provider Unavailabl e Encounter Details Date Type Department Care Team (Late st Contact Info) Description 04/05/2019 Transcribed Document [facility] [place] [facility] [place] [address] ProviderLeah MD [facility] [place] [address] Social History Tobacco Use Types Packs/Day Years Used Date Smoking Tobacco: Never Assessed Comments Unknown Sex and Gender Information Value Date Recorded Sex Assigned at Not on file Legal Sex Female 6:39 PM CDT Gender Identity Not on file Sexual Orientation Not on file documented as of this encounter Miscellaneous Notes * [employer] Conversion Note - Leah Dickerson MD - 04/05/2019 6:49 PM CDT Patient: CAMACHO [...] she has left hemiparesis status post multiple AUDIOVISUAL TECH surgeries by Dr. Dixon at [facility] and including decompression laminectomy in 2002, after which patient continued to deteriorate, who had a fall 4 days ago at her parent's home while she was trying to pick something off the floor and when she stood up she lost her balance and fell on her right knee cap and and was taken to local hospital at [facility] where x-ray revealed right distal femur fracture and was discharged home to be followed as outpatient with his orthopedist. Last night she noticed that she can not move her right upper extremity so she was brought to [facility] via EMS where workup revealed [...] and swelling tender with motion. Integumentary: Warm, [place], Intact, No pallor, No rash, Has dry [...] DK YELLOW Urine Appearance Clear Urine Specific [place] 1.020 Urine pH Dipstick 7.0 Urine Leukocyte [...] 15.0 % LOW Lymph # 1.31 K/uL Delta % 8.4 % Delta # 0.74 K/uL Eos % 0.9 % LOW Eos # 0.08 K/uL Baso % 0.2 % Baso # 0.02 K/uL Slide Review No IG# 0 x10(3)/uL IG% 1 % PT 10.9 Second(s) INR 1.1 PTT <22.0 Second(s) LOW . Radiology Results (Last 48 hours) [id number] -- 04/05/2019 16:34 CR Chest 1 Vw [...] -Continue on her current home medication . Electronically signed by Umm aMya Conversion Environmental Compliance Inspector [employer] at 12/26/2022 12:49 PM CDT documented in this encounter Plan of Treatment Not on file documented as of this encounter Visit Diagnoses Not on filedocumented in this encounter
--- OUTSIDE RECORDS SUMMARY | 2025-06-23 12:49 | XMS_ITS ---
Care Plan - [facility], [facility] Created on: June 23, 2025 JaspreetjudybrigidTiffanie Jaime : 1960 Sex: Female Author Organization [facility] , [facility] Address [address] [place] [address] Phone Care Team Providers Care Magnetic Grinder Operator Name Role Phone BARNEY HIGH, MARIS Ruano Unavailable [phone] Guy Alcaraz MD Unavailable [phone]
--- OUTSIDE RECORDS SUMMARY | 2025-06-23 12:49 | XMS_ITS | Encounter Summary ---
Author Organization [employer] ([place], [place], [place], [place]) Address [address] [place] [address] Care Team Providers Care Welder 2Nd Shift Name Role Phone Unavailable Primary Care Provider Unavailabl e Encounter Details Date Type Department Care Team (Late st Contact Info) Description 04/07/2019 Transcribed Document [facility] [place] [facility] [place] [address] ProviderLeah MD [facility] [place] [address] Social History Tobacco Use Types Packs/Day Years Used Date Smoking Tobacco: Never Assessed Comments Unknown Sex and Gender Information Value Date Recorded Sex Assigned at Not on file Legal Sex Female 6:39 PM CDT Gender Identity Not on file Sexual Orientation Not on file documented as of this encounter Miscellaneous Notes * [employer]ner Conversion Note - Leah ProviderMD - 04/07/2019 11:26 AM CDT Patient: [...]
--- OUTSIDE RECORDS SUMMARY | 2025-06-23 12:49 | XMS_ITS | Clinical Summary ---
Author Organization [facility] Address [address] [place] [address] Care Team Providers Care Display Screen Fabricator Name Role Phone Meagan Hagan MD Primary Care Provider [phone] Allergies Active Allergy Reactions Criticality Noted Date Comments Permethrin Rash High 10/22/2024 Tizanidine Anaphylaxis,Unknown - Patient states they do [...] in the morning. 3 Active HYDROcodone-anat taminophen ([place]) 7.5-325 MG tablet Take 1 tablet by [...] 75 MG 24 hr capsule 3 Active Calcium Carb-Cholecalci ferol (Calcium 600+D3) 600-20 MG-MCG tablet Take by mouth daily. Active Ascorbic Acid (vitamin C) 500 MG tablet Take 1 tablet by mouth every morning. 5 Active bumetanide (Bumex) 1 MG tablet Take 1 tablet by mouth daily. Active Docusate Sodium (DSS) 100 MG capsule Take 100 mg by mouth twice a day. 5 Active epinastine (Elestat) 0.05 % ophthalmic solution Administer 1 drop into both eyes 2 times a day. Active esomeprazole (NexIUM) [address] capsule Take 1 tablet by mouth daily. Active prednisoLONE acetate (Pred-Forte) 1 % ophthalmic suspension INSTILL 1 DROP INTO THE AFFECTED EYE 4 TIMES A DAY FOR 1 WEEK 5 Active potassium chloride CR (Klor-Con M20) 20 MEQ ER tablet Take 1 tablet by mouth daily. Active ursodiol (Actigall) 300 MG capsule TAKE 1 CAPSULE BY MOUTH TWICE DAILY DIRECTED FOR PRIMARY BILIARY CHOLANGITIS Active Glucose Blood (Blood Glucose Test) stripIndication s:Type 2 diabetes mellitus without complication, without long-term current use of insulin Check blood glucose 1 times daily before meals 200 strip 11 5 Active Lancets miscIndications :Type 2 diabetes mellitus without complication, without long-term current use of insulin Check blood glucose 1 times daily before meals 100 each 11 5 Active Blood Glucose Monitoring Suppl kitIndications: Type 2 diabetes mellitus with hyperglycemia, without long-term current use of insulin Use to check blood glucose 1 times daily 1 kit Active Active Problems Problem Noted Date Diagnosed Date Type 2 diabetes mellitus with hyperglycemia 01/09 Depressive disorder 01/21/2025 Other complications of proce dures, not elsewhere classified, sequela 01/21/2025 Cirrhosis of liver without ascites 01/21/2025 Severe obesity (BMI 35.0-39.9) with comorbidity 01/22/2023 Bimalleolar ankle fracture 01/19/2023 Acetabular fracture 01/19/2023 Failed orthopedic implant 12/17/2021 Candidiasis of skin 10/22/2021 Chiari malformation 10/22/2021 Hyperlipidemia 10/22/2021 Obesity with body mass index 30 or greater 10/22 Lymphedema 10/22/2021 Chronic venous insufficiency of lower extremity 10/22/2021 Venous ulcer 07/30/2021 S/P reverse total shoulder arthroplasty, right 1 10/09/2018 Rotator cuff arthropathy, right 08/09/2019 Hypothyroidism (acquired) 08/09/2019 Hypoxemia associated with sleep 05/10/2017 Overview (01/21/2025): G47.36 Adhesive capsulitis of left shoulder 10/14/2016 Resolved Problems Problem Noted Date Diagnosed Date Resolved Date Cellulitis 01/19/2023 06/01/2025 Declining functional status 01/16/2023 06/01/2025 Chronic diarrhea 10/22/2021 06/01/2025 Local infection of wound 10/22/2021 Onychomycosis 10/22/2021 06/01/2025 Encounters Date Type Department Care Team Description 04/30/2025 9:00 AM EDT [facility] [address] [place] [address] Roopa Martinez, PA Type 2 diabetes mellitus without complication, without long-term current use of insulin (Primary Dx); Cirrhosis of liver without ascites, unspecified hepatic cirrhosis type (CMS/HCC) 04/30/2025 Orders Only [facility] [address] [place] [address] Roopa Martinez PA Type 2 diabetes mellitus with hyperglycemia, without long-term current use of insulin ([facility]) 04/30/2025 Telephone [facility] [address] [place] [address] Roopa Martinez PA 04/30/2025 Travel from Last 3 Months Immunizations Immunization Administration Dates Next Due Tdap 10/07/2020 Family History Medical History Relation Name Comments Hypertension Other 1 Macular degeneration Other 2 Relation Name Status Comments Other 1 Other 2 Social History Tobacco Use Types Packs/Day Years Used Date Smoking Tobacco: Former Cigarettes 2 10 1 [id number] Smokeless Tobacco: Never Tobacco Cessation:Counseling Given: Not [...] Pulse 90 04/30/2025 8:09 AM EDT Temperature 36.6 C (97.8 F) 07/05/2023 11:55 AM EDT Respiratory Rate 15 01/23/2023 7:13 AM EDT Oxygen Saturation 100% 07/05/2023 11: 55 AM EDT Inhaled Oxygen Concentration - - Weight 52.5 kg (115 lb 11.9 oz) 01/21/2025 8:02 AM EDT Height 157.5 cm (5' 2 ) 04/30/2025 8:09 AM EDT Body Mass Index 21.17 01/21/2025 8:02 AM EDT Plan of Treatment Upcoming Encounters Date Type Department Care Team (Late st Contact Info) Description 11/17/2025 9:00 AM EDT [facility] [address] [place] [address] Roopa Martinez PA [address] [place] [address] Health Maintenance Due Date Last Done [...] (2 of 2 - PCV) 12/07/2022 12/07/2021 [id number] Vaccine (6 - Mixed Product risk 2023- season) 05/12/2025 08/16/2024, 08/08/2023, 09/15/2021, Additional history exists [facility]-Influenza Vaccine (#1) 05/12/202506/06, 03/09/2023, 09/15/2021, Additional history exists [facility]-Diabetes: Hemoglobin A1C 10/28/2025, 01/16/2023, 12/15/2021, Additional history exists [facility]-Depression Screening 04/30/2026 04/30/2025, 04/12 [facility]-DTaP,Tdap,and Td Vaccines (3 - Td or Tdap) 05/30/2034 05/30/2024, 10/07/2020 [facility]-Hepatitis C Screening Completed 01/21/2023, 05/2023 [facility]-Obesity Intervention Completed 025, 01/21/2025, 07/05/2023, Additional history exists HPV Vaccines Aged Out [...] complication, without long-term current use of insulin ACUTE HEPATITIS PANEL Routine 01/21/2023 3:45 AM EDT from Last 3 Months or Most Recently Relevant to Health Maintenance Results * POCT glycosylated hemoglobin (Hb A1C) (04/30/2025 8:34 AM EDT) [facility] POCT Hemoglobin A1C 6.6 <5.7% Non-Diabet ic % [facility] Kit Lot Number [id number] [facility] Kit Expiration Date 02/08/27 [facility] Blood Venous blood specimen / Unknown 04/30/2025 8:34 AM EDT us Roopa HERRERA POINT OF CARE TEST EN TER/EDIT ORDERABLES Final Result [facility] [address] [place] [address] * Hepatitis panel, acute (01/21/2023 3:45 AM EDT) [facility] Hepatitis B Surf Antigen Negative Negative 01/21/2023 6:15 AM EDT [facility] Hepatitis C Antibody Negative Negative 01/21/2023 6:15 AM EDT [facility] Hepatitis A Antibody IgM Negative Negative 01/21/2023 6:15 AM EDT [facility] Hepatitis B Core Antibody IgM Negative Negative 01/21/2023 6:15 AM EDT [facility] Blood Venous blood specimen / Unknown Venipuncture / Unknown 01/21/2023 3:45 AM EDT 01/21/2023 4:16 AM EDT us Noemy Ramos DORR OPERATOR, DNP LAB BLOOD ORDERABLES Final Result Performing Organization Address City/State/[facility] Co de Phone Number [facility]ALTH[facility]ARE [facility] [address] [place] [address] from Last 3 Months or Most Recently Relevant to Health Maintenance Insurance [facility] [employer] MEDICARE Advance Directives * Full Code (Latest Code Status on File) Date Activated Date Inactivated Comments 01/16/2023 7:17 PM 01/24/2023 4:52 PM Question Answer Comments Patient has decision-making capacity? Yes Care Teams Display Screen Fabricator Relationship Specialty Start Date End Date Meagan Hagan MD [address] [place] [address] [address] [place] [address] PCP - General 01/22/21
--- OUTSIDE RECORDS SUMMARY | 2025-06-23 12:49 | XMS_ITS | Continuity of Care Document ---
Author Organization [facility]mya, [facility] Address [address] [facility], [address] [place] [address] Care Team Providers Care Patient Ambassador Name Role Phone [facility] Referring Provider DANNI LANGLEY Referring Provider DALE MALDONADO Referring Provider Assessment Encounter Date Assessment Date Assessment LastModified by Organization Details LastModified Time 06/02/2025 06/02/2025 Tiffanie has suffered a superficial wound of the left labia [...] flu vaccine today. Not available 06/02/2025 16:52:27 Plan of Treatment Reminders Order Date Submit Date Provider Last Modified By Organization Details Last Modified Time Details Appointments None recorded. Lab None recorded. Referral gynecologis t referral 2024 025 CORINNE Mejia DO, [address], [place], [place], [address], 15:34:15 Procedures None recorded. Surgeries None recorded. Imaging None recorded. Medication Orders ceftriaxone 1 gram solution for injection 2024 025 marisolIbeth [facility] [address] [place], [address], 10:42:31 cephalexin 500 mg capsule 2024 025 [facility] [place], [address], 10:46:37 Patient TargetsNo targets recorded. Patient InstructionsNo instructions recorded. 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 for [facility] Referring Physician: Meagan Hagan, Family Medicine, Encounter Date: 06/02/2025 Results Created Date Observation Date Name Description Value Unit Range Abnormal Flag Note LastModifiedBy Organization Detail LastModifiedTime 05/23/2005/24/2025 LIPID PANEL , STAND JNAET cholesterol, total 106 mg/dL <200 normal Not Available [facility] [place] [facility] [address] [place], [address], 05/24/2025 09:19:54 05/23/2005/24/2025 LIPID PANEL , STAND JANET HDL cholesterol 37 mg/dL > or = 50 low Not Available [facility] [place] [facility] [address] [place], [address], 05/24/2025 09:19:54 05/23/2005/24/2025 LIPID PANEL , STAND JANET triglyceride s 45 mg/dL <150 normal Not Available [facility] [place] [facility] [address] [facility] [email or web address], [address], 05/24/2025 09:19:54 05/23/2005/24/2025 LIPID PANEL , STAND JANET LDL-choleste rol 56 mg/dL _(gagandeep c) normal Refer ence range : <100 Mattie able range <100 mg/dL for prima ry preve ntion ; <70 mg/dL for patie nts with CHD or diabe tic patie nts with > or = 2 CHD risk facto rs. LDL-C is now calcu lated using the Roxy n-Hop kins smooth blanco, which is a valid ated novel bernabe jefferson accur acy than the Fried rupali equat ion in the estim ation of LDL-C . Roxy blanco SS et al. XANDER. 2013; 310(1 9): 2061- 2068 (http ://ed ucati on.Qu estDi Brandwatchs. com/f aq/FA Q164) Not Available [facility] [place] [facility] [address] [email or web address], [place], [address], 05/24/2025 09:19:54 05/23/2005/24/2025 LIPID PANEL , STAND JANET chol/HDLC ratio 2.9 (calc ) <5.0 normal Not Available [facility] [place] [facility] [address] [facility] [email or web address], [place], [address], 05/24/2025 09:19:54 05/23/2005/24/2025 LIPID PANEL , STAND JANET non HDL cholesterol 69 mg/dL _(gagandeep c) <130 normal For patie nts with diabe mylene plus 1 major ASCVD risk facto r, treat ing to a non-H DL-C goal of <100 mg/dL (LDL- C of <70 mg/dL ) is consi dered a thera pegermán c optio n. Not Available [facility] [place] [facility] [address] [facility] [email or web address], [place], [address], 05/24/2025 09:19:54 05/23/2005/24/2025 COMPR EHENS JEF METAB OLIC PANEL glucose 129 mg/dL 65-99 high Fasti ng refer ence inter annita For someo ne witho ut known diabe mylene, a gluco se value >125 mg/dL indic ates that they may have diabe mylene and this shoul d be confi rmed with a follo w-up test. Not Available [facility] [place] [facility] [address] [place], [address], 05/24/2025 09:19:55 05/23/2005/24/2025 COMPR EHENS JEF METAB OLIC PANEL urea nitrogen (BUN) 12 mg/dL 7-25 normal Not Available [facility] [address] [place], [address], 05/24/2025 09:19:55 05/23/2005/24/2025 COMPR EHENS JEF METAB OLIC PANEL creatinine 0.43 mg/dL 0.50-1 .05 low Not Available [facility] [address] [place], [address], 05/24/2025 09:19:55 05/23/20 25 05/24/2025 COMPR EHENS JEF METAB OLIC PANEL eGFR 108 mL/mi n/1.7 3m2 > or = 60 normal Not Available [facility] [address] [facility] [[email or web address], [address], 05/24/2025 09:19:55 05/23/2005/24/2025 COMPR EHENS JEF METAB OLIC PANEL BUN/creatini ne ratio 28 (calc ) 6-22 high Not Available [facility] [address] [place], [address], 05/24/2025 09:19:55 05/23/2005/24/2025 COMPR EHENS JEF METAB OLIC PANEL sodium 133 mmol/ L 135-14 6 low Not Available [facility] [place] [facility] [address] [place], [address], 05/24/2025 09:19:55 05/23/20 25 05/24/2025 COMPR EHENS JEF METAB OLIC PANEL potassium 4.0 mmol/ L 3.5-5. 3 normal Not Available [facility] [address] [place], [address], 05/24/2025 09:19:55 05/23/2005/24/2025 COMPR EHENS JEF METAB OLIC PANEL chloride 96 mmol/ L 98-110 low Not Available [facility] [address] [facility] [[email or web address], [address], 05/24/2025 09:19:55 05/23/2005/24/2025 COMPR EHENS JEF METAB OLIC PANEL carbon dioxide 30 mmol/ L 20-32 normal Not Available [facility] [address] [facility] [[email or web address] [facility], [place], [address], 05/24/2025 09:19:55 05/23/2005/24/2025 COMPR EHENS JEF METAB OLIC PANEL calcium 8.7 mg/dL 8.6-10 .4 normal Not Available [facility] [address] [email or web address], [place], [address], 05/24/2025 09:19:55 05/23/2005/24/2025 COMPR EHENS JEF METAB OLIC PANEL protein, total 6.6 g/dL 6.1-8. 1 normal Not Available [facility] [address] [facility] [[email or web address], [address], 05/24/2025 09:19:55 05/23/2005/24/2025 COMPR EHENS JEF METAB OLIC PANEL albumin 3.6 g/dL 3.6-5. 1 normal Not Available [facility] [address] [facility] [[email or web address], [address], 05/24/2025 09:19:55 05/23/2005/24/2025 COMPR EHENS JEF METAB OLIC PANEL globulin 3.0 g/dL_ (calc ) 1.9-3. 7 normal Not Available [facility] [address] [facility] [[email or web address], [address], 05/24/2025 09:19:55 05/23/2005/24/2025 COMPR EHENS JEF METAB OLIC PANEL albumin/glob ulin ratio 1.2 (calc ) 1.0-2. 5 normal Not Available [facility] [place] [facility] [address] [facility] [[email or web address], [address], 05/24/2025 09:19:55 05/23/2005/24/2025 COMPR EHENS JEF METAB OLIC PANEL bilirubin, total 1.2 mg/dL 0.2-1. 2 normal Not Available [facility] [address] [place], [address], 05/24/2025 09:19:55 05/23/2005/24/2025 COMPR EHENS JEF METAB OLIC PANEL alkaline phosphatase 333 U/L 37-153 high Not Available [facility] [address] [place], [address], 05/24/2025 09:19:55 05/23/2005/24/2025 COMPR EHENS JEF METAB OLIC PANEL AST 57 U/L 10-35 high Not Available [facility] [place] [facility] [address] [place], [address], 05/24/2025 09:19:55 05/23/2005/24/2025 COMPR EHENS JEF METAB OLIC PANEL ALT 59 U/L 6-29 high Not Available [facility] [address] [place], [address], 05/24/2025 09:19:55 05/23/2005/24/2025 TSH TSH 28.20 mIU/L 0.40-4 .50 high Not Available [facility] [address] [place], [address], 05/24/2025 09:19:55 05/23/2005/24/2025 CBC (INCL UDES DIFF/ PLT) white blood cell count 5.0 thous and/u L 3.8-10 .8 normal Not Available [facility] [place] [facility] [address] [place], [address], 05/24/2025 09:19:56 05/23/2005/24/2025 CBC (INCL UDES DIFF/ PLT) red blood cell count 3.73 axel on/uL 3.80-5 .10 low Not Available [facility] [place] [facility] [address] [place], [address], 05/24/2025 09:19:56 05/23/2005/24/2025 CBC (INCL UDES DIFF/ PLT) hemoglobin 11.4 g/dL 11.7-1 5.5 low Not Available [facility] [place] [facility] [address] [place], [address], 05/24/2025 09:19:56 05/23/2005/24/2025 CBC (INCL UDES DIFF/ PLT) hematocrit 34.6 % 35.0-4 5.0 low Not Available [facility] [place] [facility] [address] [place], [address], 05/24/2025 09:19:56 05/23/2005/24/2025 CBC (INCL UDES DIFF/ PLT) MCV 92.8 fL 80.0-1 00.0 normal Not Available [facility] [place] [facility] [address] [place], [address], 05/24/2025 09:19:56 05/23/2005/24/2025 CBC (INCL UDES DIFF/ PLT) MCH 30.6 pg 27.0-3 3.0 normal Not Available [facility] [place] [facility] [address] [place], [address], 05/24/2025 09:19:56 05/23/2005/24/2025 CBC (INCL UDES DIFF/ PLT) MCHC 32.9 g/dL 32.0-3 6.0 normal For adult s, a sligh t decre ase in the calcu lated MCHC value (in the range of 30 to 32 g/dL) is most likel y not clini vance signi fican t; huyen er, it shoul d be inter prete d with cauti on in [facility] n with other red cell devorah eters and the patie nt's clini gagandeep condi tion. Not Available [facility] [place] [facility] [address], [place], [address], 05/24/2025 09:19:56 05/23/2005/24/2025 CBC (INCL UDES DIFF/ PLT) RDW 16.5 % 11.0-1 5.0 high Not Available [facility] [place] [facility] [address] [facility] [email or web address], [place], [address], 05/24/2025 09:19:56 05/23/2005/24/2025 CBC (INCL UDES DIFF/ PLT) platelet count 107 thous and/u L 140-40 0 low Not Available [facility] [place] [facility] [address], [place], [address], 05/24/2025 09:19:56 05/23/2005/24/2025 CBC (INCL UDES DIFF/ PLT) MPV 9.6 fL 7.5-12 .5 normal Not Available [facility] [place] [facility] [address], [place], [address], 05/24/2025 09:19:56 05/23/2005/24/2025 CBC (INCL UDES DIFF/ PLT) absolute neutrophils 3150 cells /uL 1500-7 800 normal Not Available [facility] [place] [facility] [address] [facility] [email or web address], [place], [address], 05/24/2025 09:19:56 05/23/2005/24/2025 CBC (INCL UDES DIFF/ PLT) absolute lymphocytes 1220 cells /uL 850-39 00 normal Not Available [facility] [place] [facility] [address], [place], [address], 05/24/2025 09:19:56 05/23/2005/24/2025 CBC (INCL UDES DIFF/ PLT) absolute monocytes 500 cells /uL 200-95 0 normal Not Available [facility] [place] [facility] [address], [place], [address], 05/24/2025 09:19:56 05/23/2005/24/2025 CBC (INCL UDES DIFF/ PLT) absolute eosinophils 90 cells /uL 15-500 normal Not Available [facility] [place] [facility] [address], [place], [address], 05/24/2025 09:19:56 05/23/2005/24/2025 CBC (INCL UDES DIFF/ PLT) absolute basophils 40 cells /uL 0-200 normal Not Available [facility] [place] [facility] [address], [place], [address], 05/24/2025 09:19:56 05/23/2005/24/2025 CBC (INCL UDES DIFF/ PLT) neutrophils 63 % normal Not Available [facility] [place] [facility] [address], [place], [address], 05/24/2025 09:19:56 05/23/2005/24/2025 CBC (INCL UDES DIFF/ PLT) lymphocytes 24.4 % normal Not Available [facility] [place] [facility] [address], [place], [address], 05/24/2025 09:19:56 05/23/2005/24/2025 CBC (INCL UDES DIFF/ PLT) monocytes 10.0 % normal Not Available [facility] [place] [facility] [address], [place], [address], 05/24/2025 09:19:56 05/23/20 25 05/24/2025 CBC (INCL UDES DIFF/ PLT) eosinophils 1.8 % normal Not Available [facility] [place] [facility] [address] [facility] [place], [address], 05/24/2025 09:19:56 05/23/20 25 05/24/2025 CBC (INCL UDES DIFF/ PLT) basophils 0.8 % normal Not Available [facility] [place] [facility] [address], [place], [address], 05/24/2025 09:19:56 Result Notes None recorded. Problems Name Problem SNOMED Code Status Onset Date Resolution Date Notes Provider Name and Address Organization Details Recorded Time Depressive disorder 88368116 Active Not Available [facility] 3 04:05:44 Postoperat jef meningocel e 379330478 Active Not Available [facility] 3 04:05:44 Chiari malformati on 144318465 Active Not Available [facility] 3 04:05:44 Hypertensi ve disorder 71127405 Active Not Available [facility] 3 04:05:44 Hypothyroi dism 35246788 Active Not Available [facility] 3 04:05:44 Fatigue 74962453 Active Not Available [facility] 3 04:05:44 Local infection of wound 92248710 Active Not Available [facility] 3 04:05:44 Chronic diarrhea 909971845 Active Not Available [facility] 3 04:05:43 Hyperlipid emia 60154718 Active Not Available [facility] 3 04:05:44 Onychomyco sis 571052189 Active Not Available [facility] 3 04:05:44 Candidiasi s of skin 24999683 Active Not Available [facility] 3 04:05:44 Infection of skin and/or subcutaneo us tissue 25019885 Active Not Available [facility] 3 04:05:43 Body mass index 30+ - obesity 862937915 Active Not Available [facility] 3 04:05:43 Left hemiparesi s 264656968 Active Not Available [facility] 3 04:05:44 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 catherine 2725771731974 8 Active Not Available [facility] 3 04:05:43 Syringomye keegan 929823432 Active Not Available [facility] 3 04:05:43 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 Not Available [facility] 3 04:05:44 Intermitte nt urinary incontinen ce 321553473 Active 2016 Not Available [facility] 3 04:05:44 Adhesive capsulitis of left shoulder 3924329638468 07 Active 2016 Not Available [facility] 3 04:05:44 Sleep related hypoxemia 5228005681467 02 Active 2016 G47.36 Not Available [facility] 3 04:05:44 Fracture of femur 77781703 Active 2018 Not Available [facility] 3 04:05:44 Fracture of humerus 42858317 Active 2018 Not Available [facility] 3 04:05:44 Closed fracture of left tibial plateau 8497684464789 9107 Active 2020 Not Available [facility] 3 04:05:43 Closed fracture of clavicle 97028633 Active 2020 Not Available [facility] 3 04:05:44 Compressio n fracture of lumbar spine 024258426 Active 2020 Not Available [facility] 3 04:05:44 Osteoarthr itis of wrist 459458605 Active 2023 Meagan Hagan MD [address], [address] [facility] 4 12:32:00 Problem Notes None recorded. Procedures Surgical History Date Name Laterality Status Provider Name and Address Organization Details Recorded Time 12/18/19 22 repair of shoulder completed Meagan Hagan MD [address], [address], [facility] 05/09/2022 14:14:30 10/15/19 21 open reduction of fracture with internal fixation completed Meagan Hagan MD [address] [address], [place], [place], [address] [place] [address], [facility] 04/11/2021 19:45:26 04/06/20 19 procedure on knee completed Meagan Hagan MD [address] [address], [place], [place], [address] [place] [address], [facility] 12/07/2022 23:56:52 08/11/20 14 Colonoscopy completed Meagan Hagan MD [address] [address], [place], [address] [place] [address], [facility] 11/07/2014 14:40:37 09/11/19 12 Other completed [facility] 11/07/2014 13:57:35 09/11/19 03 operation on brain completed Meagan Hagan MD [address] [address], [place], [address] [place] [address], [facility] 05/11/2022 00:07:17 09/11/18 97 Other completed [facility] 11/07/2014 13:57:35 reverse prosthetic total arthroplasty of right shoulder completed Meagan Hagan MD [address], [address] [place] [address], [facility] 11/06/2019 21:36:32 Imaging Results None recorded. Procedure Notes None recorded. Medical Equipment None Reported. Allergies Allergen ID Allergen Name Allergen Category Reaction Reaction Severity Criticality Documentation Date Start Date Code Code System Note Provider Name and Address Organization Details Recorded Time 53232 Zanaflex medicatio n anaphylax is severe Not available 10/19/20202020 83925 6 RxNorm [facility] 1 10:44:08 84872 Product containin g 3-hydroxy -3-methyl glutaryl- coenzyme A reductase inhibitor (product) medicatio n myalgias (muscle pain) Not available Not available 06/07/2023 16349 009 SNOMED Meagan Hagan MD 2016 [facility], [facility] [address], [place], [address], [facility] 3 19:51:38 49051 permethri n medicatio n rash Not available [facility] 08/12/2024 97229 RxNorm Meagan Hagan MD [address] [facility], [facility], [place], [address], [facility] 4 17:09:53 Medications [...] completed Not Available Not Available Not Available [employer] Ultra Test strips TEST GLUCOSE ONE TIME [...] lotepredn ol etabonate 0.5 % eye drops,arnoldo penon 06/11 completed Not Available Not Available Not [...] completed Not Available Not Available Not Available [facility]/gram topical powder apply under breasts [...] 99 % 97.8 [degF] 120/73 mm[Hg] Jennifer [facility] 5 15:41:39 Social History Question Answer Notes LastModified by Organizat ion Details LastModified Time Tobacco Smoking Status Never Smoker [facility] 11/07/2014 13:57:35 Do You [...] Or The Highest Degree You Have Received? LM87638-4 Information not available 12/07/2021 High Blood Pressure [...] Blood Diseases N Hyperthyroidism N Depression Y COPD N Hypothyroidism Y Developmental or Behavioral Disorders N Eczema, [...] recombinant, quadrivalent, PF 0 completed Not Available [facility] 06/12/2020 11:51:39 pneumococcal polysaccharide PPV23 2 completed [facility] 12/07/2021 15:47:58 Influenza, recombinant, quadrivalent, PF 3 completed [facility] 03/09/2023 14:45:02 Influenza, split virus, quadrivalent, PF 3 completed Meagan Hagan MD [address] [facility], [address], [address], [facility] 06/07/2023 16:46:05 COVID-19, mRNA, LNP-S, bivalent, PF, 30 mcg/0.3 mL dose 3 completed Meagan Hagan MD [address], [address], [facility] 08/09/2023 16:35:41 Influenza, high-dose, trivalent, PF 5 completed [facility] 06/02/2025 16:54:20 COVID-19, mRNA, LNP-S, PF, 30 mcg/0.3 mL dose 1 completed Not Available [facility] 06/13/2023 04:05:44 COVID-19, mRNA, LNP-S, PF, 30 mcg/0.3 mL dose 1 completed Not Available [facility] 06/13/2023 04:05:44 COVID-19, mRNA, LNP-S, PF, 100 mcg/0.5mL dose or 50 mcg/0.25mL dose 2 completed Not Available [facility] 06/13/2023 04:05:44 Influenza, split virus, quadrivalent, preservative 2 completed Not Available [facility] 06/13/2023 04:05:44 Tdap 4 completed Meagan Hagan MD 2017 [facility], [facility], [place], [address], [facility] 06/03/2024 12:09:58 Past Encounters Encounter ID Performer Location Encounter Start Date Encounter Closed Date Diagnosis/Indication Diagnosis SNOMED-CT Code Diagnosis ICD10 Code Diagnosis IMO Codes Diagnosis Note [id number] Meagan Hagan MD [facility] [address] [address] 06/02/2025 15:17:48 06/03/2025 08:42:10 Abscess of labia 247345189 N76.4 7047599 Influenza vaccination given 8743097507 9109 Z23 49884515 Insulin tr eated type 2 diabetes mellitus 669199237 E11.9 Z79.4 026583 Health Concerns Section Related Observation LastModified by Organization Detai ls LastModified Time None Recorded Concern Status LastModified by Organization Details LastModified Time None Recorded Payers Encounter Date Sequence Insurance Name Policy Number Policy Cantu Covered Member ID Cantu Member ID Guarantor Name 06/02/[address] [facility] - MEDICARE ADVANTAGE (MEDICARE REPLACEMENT PPO) [id number] Tiffanie Dennison [id number] Tiffanie Dennison 06/02/2025 2 [employer] LIFE ( - MEDICARE SUPPLEMENT) Tirso Juma [id number] Tiffanie Dennison Notes Date Note Type Note Provider Name and Address Organization Details Recorded Time 06/02/2025 text/html she was sitting outside last in the heat and when she went inside to urinate the Depends was sticking to the labia and tore it. She developed an open wound there and it then became an abscess. She had drainage on with purulence but it has sealed back over. 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 She is very uncomfortable. She thinks she had some fever and chills over the weekend but not today. Meagan Hagan MD [address] [place] [address], [address], [place], [address], [facility] 06/02/2025 16:53:41 OBGyn Episode No OBEpisode recorded.
--- OUTSIDE RECORDS SUMMARY | 2025-06-23 12:49 | XMS_ITS | Encounter Summary ---
Author Organization [employer] ([place], [place], [place], [place]) Address [address] [place] [address] Care Team Providers Care Residential Property Consultant Name Role Phone Unavailable Primary Care Provider Unavailabl e Encounter Details Date Type Department Care Team (Late st Contact Info) Description 04/06/2019 Transcribed Document [facility] [place] [facility] [address] [place] [address] ProviderLeah MD [address], [place] [address] Social History Tobacco Use Types Packs/Day Years Used Date Smoking Tobacco: Never Assessed Comments Unknown Sex and Gender Information Value Date Recorded Sex Assigned at Not on file Legal Sex Female 6:39 PM CDT Gender Identity Not on file Sexual Orientation Not on file documented as of this encounter Miscellaneous Notes * Cerner Conversion Note - Historical ProviderMD - 04/06/2019 2:00 AM CDT Spa Coordinator Details Entered On: 04/06/2019 0:47 EDT Performed [...] Not Appropriate Arterial Line : No Cinda Mckenzie RN - 04/06/2019 0:47 EDT documented in this encounter Plan of Treatment Not on file documented as of this encounter Visit Diagnoses Not on filedocumented in this encounter
--- OUTSIDE RECORDS SUMMARY | 2025-06-23 12:49 | XMS_ITS | Encounter Summary ---
Author Organization [employer] ([place], [place], [place], [place]) Address [address] [place] [address] Care Team Providers Care Process Design Engineer Name Role Phone Unavailable Primary Care Provider Unavailabl e Encounter Details Date Type Department Care Team (Late st Contact Info) Description 04/06/2019 Transcribed Document [facility] [place] Family Medicine [facility] [place] [address] ProviderLeah MD [address] [place] [address] Social History Tobacco Use Types Packs/Day Years Used Date Smoking Tobacco: Never Assessed Comments Unknown Sex and Gender Information Value Date Recorded Sex Assigned at Not on file Legal Sex Female 6:39 PM CDT Gender Identity Not on file Sexual Orientation Not on file documented as of this encounter Miscellaneous Notes * Cerner Conversion Note - Leah Dickerson MD - 04/06/2019 4:18 PM CDT Patient: CAMACHO [...] % 20.9 % Lymph # 1.80 K/uL Gilmer % 8.7 % Gilmer # 0.75 K/uL Eos % 2.0 % [...] 15.0 % LOW Lymph # 1.31 K/uL Gilmer % 8.4 % Gilmer # 0.74 K/uL Eos % 0.9 % [...]
--- OUTSIDE RECORDS SUMMARY | 2025-06-23 12:49 | XMS_ITS | Encounter Summary ---
Author Organization [employer] ([place], [place], [place], [place]) Address [address] [place] [address] Care Team Providers Care Optometric Coordinator Name Role Phone Unavailable Primary Care Provider Unavailabl e Encounter Details Date Type Department Care Team (Late st Contact Info) Description 04/08/2019 Transcribed Document [facility] [place] Family Medicine [address] [place] [address] ProviderLeah MD [address], [place] [id number] Social History Tobacco Use Types Packs/Day Years Used Date Smoking Tobacco: Never Assessed Comments Unknown Sex and Gender Information Value Date Recorded Sex Assigned at Not on file Legal Sex Female 6:39 PM CDT Gender Identity Not on file Sexual Orientation Not on file documented as of this encounter Miscellaneous Notes * [employer]ner Conversion Note - Historical ProviderMD - 04/08/2019 2:00 AM CDT Director Of Digital Marketing Details Entered On: 04/08/2019 2:00 EDT Performed [...]
--- OUTSIDE RECORDS SUMMARY | 2025-06-23 12:49 | XMS_ITS ---
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 Name Role Phone BARNEY HIGH, MARIS Ruano Unavailable [phone] Guy Alcaraz MD Unavailable [phone] Reason for Referral Date Encounter Description Provider Reason for Referral 03/30/22 Follow Up Christelle Brito PA-C Refe rral To Physician 12/30/21 Post Op Christelle Brito PA-C Refe rral To Physician - Pt to follow up with pcp for bp control 11/08/21 Follow Up Quirino Tripp MD Refe rral To Physician - Pt to follow up with pcp for bp control 10/18/21 NEW PROBLEM/EST PT Quirino Hickey Referral To Physician - Pt to follow up with pcp for bp control 12/16/20 Follow Up Quirino Tripp MD Refe rral To Physician - Pt to follow up with pcp for bp control 10/07/20 Follow Up Quirino Tripp MD Refe rral To Physician - Pt to follow up with pcp for bp control Problems Includes: Active, inactive, and resolved Problems All Visits Onset Date Resolved Date Provider Condition S tatus Left Ankle Joint Pain 01/16/2023 Modesto Zhang DPTim Active Last Documented On 3 9:24AM ; [facility] History of Joint Pain Should er Right 10/18/2021 01/16/2023 Modesto Zhang DPTim Resolved Last Documented On 3 9:23AM ; [facility] Joint Pain Shoulder 02/05/2020 01/16/2023 Modesto Zhang D PM Resolved Last Documented On 3 9:24AM ; [facility] Joint Pain Right Knee 04/24/2019 01/16/2023 Modesto Zhang DPM Resolved Last Documented On 3 9:23AM ; [facility] Plan of Treatment Pending Tests Order Diagnosis Results Due Ordering P rovider Radiology - CT Scan Shoulder 11/01/21 Quirino Tripp MD Last Documented On 2 9:05AM ; [facility] Instructions to patient Lose weight Last Documented On 3 9:54AM ; [facility] Lose weight Last Documented On 2 12:57PM ; [facility] Lose weight Last Documented On 2 1:59PM ; [facility] Lose weight Last Documented On 2 1:42PM ; [facility] Lose weight Last Documented On 1 1:11PM ; [facility] Lose weight Last Documented On 1 3:38PM ; [facility] Instructions for patient see pcp for bp Last Documented On 0 11:23AM ; [facility] Assessments Includes: Assessments for all patient encounters No Assessments Recorded Instructions Includes: Instructions for all patient encounters Instructions to patient Lose weight Last Documented On 3 9:54AM ; [facility] Lose weight Last Documented On 2 12:57PM ; [facility] Lose weight Last Documented On 2 1:59PM ; [facility] Lose weight Last Documented On 2 1:42PM ; [facility] Lose weight Last Documented On 1 1:11PM ; [facility] Lose weight Last Documented On 1 3:38PM ; [facility] Instructions for patient see pcp for bp Last Documented On 0 11:23AM ; [facility] Medical Equipment - Implanted Devices Includes: Current and historical Devices No Medical Equipment Recorded Medications Includes: Current and historical Medications Current Medications (continue as prescribed) Calcium 600+D 600-10 MG-MCG Oral Tablet 01/16/2023 P rovider: Diagnosis: Last Documented On 3 10:07AM By Luz Ruff ; [facility] Ascorbic Acid 1000 MG Oral Tablet 01/16/2023 Provide r: Diagnosis: Last Documented On 3 10:07AM By Luz Ruff ; [facility] Lidocaine Viscous HCl 2% Mouth/Throat Solution 023 Provider: Diagnosis: Last Documented On 3 10:11AM By Luz Ruff ; [facility] Ibuprofen 800 MG Oral Tablet 01/16/2023 Provider: Diagnosis: Last Documented On 3 10:11AM By Luz Ruff ; [facility] Fluorometholone 0.1% Ophthalmic Suspension 01/16/2023 Provider: Diagnosis: Last Documented On 3 10:10AM By Luz Ruff ; [facility] Gabapentin 100 MG Oral Capsule 01/16/2023 Provider: Diagnosis: Last Documented On 3 10:10AM By Luz Ruff ; [facility] FeroSul 325 (65 Fe) MG Oral Tablet 01/16/2023 Provid er: Diagnosis: Last Documented On 3 10:10AM By Luz Ruff ; [facility] Erythromycin 5 MG/GM Ophthalmic Ointment 01/16/2023 Provider: Diagnosis: Last Documented On 3 10:09AM By Luz Ruff ; [facility] Diphenoxylate-Atropine 2.5-0.025 MG Oral Tablet 2022 Provider: Diagnosis: Last Documented On 3 10:09AM By Luz Ruff ; [facility] Chlorhexidine Gluconate 0.12% Mouth/Throat Solution Provider: Diagnosis: Last Documented On 3 10:09AM By Luz Ruff ; [facility] Calmoseptine 0.44-20.6% External Ointment 01/16/2023 Provider: Diagnosis: Last Documented On 3 10:09AM By Luz Ruff ; [facility] Olopatadine HCl 0.1% Ophthalmic Solution 01/16/2023 Provider: Diagnosis: Last Documented On 3 10:09AM By Luz Ruff ; [facility] Promethazine HCl 25 MG Oral Tablet 01/16/2023 Provid er: Diagnosis: Last Documented On 3 10:08AM By Luz Ruff ; [facility] rOPINIRole HCl 0.5 MG Oral Tablet 01/16/2023 Provide r: Diagnosis: Last Documented On 3 10:08AM By Luz Ruff ; [facility] HYDROcodone-Acetaminophen 7. 5-325 MG Oral Tablet 01/09/2023 Provider: MARIS CORLEY MD Diagnosis: Last Documented On 3 9:27AM By Luz Ruff ; [facility] Eye Itch Relief 0.025% Ophthalmic Solution 01/08/2023 Provider: Diagnosis: Last Documented On 3 10:06AM By Luz Ruff ; [facility] Levothyroxine Sodium 150 MCG Oral Tablet 01/01/2023 Provider: MARIS CORLEY MD Diagnosis: Last Documented On 3 9:27AM By Luz Ruff ; [facility] Furosemide 20 MG Oral Tablet 12/29/2022 Provider: MARIS CORLEY MD Diagnosis: Last Documented On 3 9:27AM By Luz Ruff ; [facility] Synthroid 175 MCG Oral Tablet 12/09/2022 Provider: MARIS CORLEY MD Diagnosis: Last Documented On 3 10:06AM By Luz Ruff ; [facility] prednisoLONE Acetate 1% Ophthalmic Suspension 12/10/19 Provider: Diagnosis: Last Documented On 3 10:06AM By Luz Ruff ; [facility] Venlafaxine HCl ER 150 MG Or al Capsule Extended Release 24 Hour 12/06/2022 Provider: MARIS DIAS MD Diagnosis: Last Documented On 3 9:27AM By Luz Ruff ; [facility] ARIPiprazole 2 MG Oral Tablet 11/22/2022 Provider: MARIS CORLEY MD Diagnosis: Last Documented On 3 9:27AM By Luz Ruff ; [facility] Spironolactone 25 MG Oral Tablet 09/12/2022 Provider : MARIS CORLEY MD Diagnosis: Last Documented On 3 10:08AM By Luz Ruff ; [facility] Nystatin [id number] UNIT/GM External Cream 08/09/2022 Pr ovider: MARIS CORLEY MD Diagnosis: Last Documented On 3 10:11AM By Luz Ruff ; [facility] Past Medications on file HYDROcodone-Acetaminophen 5- 325 MG Oral Tablet 05/17/2022 - 05/24/2022 Provider: Quirino Tripp MD Diagnosis: one tablet by mouth three ti mes a daylast prescription Last Documented On 2 3:28PM By Quirino Tripp ; [facility] HYDROcodone-Acetaminophen 5- 325 MG Oral Tablet 05/04/2022 - 05/11/2022 Provider: Quirino Tripp MD Diagnosis: one tablet by mouth three times a day Last Documented On 2 4:56PM By Quirino Tripp ; [facility] HYDROcodone-Acetaminophen 5- 325 MG Oral Tablet 04/28/2022 - 05/05/2022 Provider: Quirino Tripp MD Diagnosis: one tablet by mouth three times a day Last Documented On 2 8:20AM By Quirino Tripp ; [facility] HYDROcodone-Acetaminophen 5- 325 MG Oral Tablet 04/20/2022 - 04/27/2022 Provider: Quirino Tripp MD Diagnosis: one tablet by mouth three times a day Last Documented On 2 1:38PM By Quirino Tripp ; [facility] HYDROcodone-Acetaminophen 5- 325 MG Oral Tablet 04/13/2022 - 04/20/2022 Provider: Quirino Tripp MD Diagnosis: one tablet by mouth three times a day Last Documented On 2 5:24PM By Quirino Tripp ; [facility] HYDROcodone-Acetaminophen 5- 325 MG Oral Tablet 04/06/2022 - 04/13/2022 Provider: Quirino Tripp MD Diagnosis: one tablet by mouth three times a day Last Documented On 2 5:13PM By Quirino Tripp ; [facility] HYDROcodone-Acetaminophen 5- 325 MG Oral Tablet 03/31/2022 - 04/07/2022 Provider: Quirino Tripp MD Diagnosis: one tablet by mouth three times a day Last Documented On 2 4:14PM By Quirino Tripp ; [facility] HYDROcodone-Acetaminophen 5- 325 MG Oral Tablet 03/24/2022 - 03/31/2022 Provider: Quirino Tripp MD Diagnosis: one tablet by mouth three times a day Last Documented On 2 10:24AM By Quirino Tripp ; [facility] HYDROcodone-Acetaminophen 5- 325 MG Oral Tablet 03/16/2022 - 03/23/2022 Provider: Quirino Tripp MD Diagnosis: one tablet by mouth three times a day Last Documented On 2 4:39PM By Quirino Tripp ; [facility] HYDROcodone-Acetaminophen 5- 325 MG Oral Tablet 03/09/2022 - 03/16/2022 Provider: Quirino Tripp MD Diagnosis: one tablet by mouth three times a day Last Documented On 2 11:11AM By Quirino Tripp ; [facility] HYDROcodone-Acetaminophen 5- 325 MG Oral Tablet 03/01/2022 - 03/08/2022 Provider: Quirino Tripp MD Diagnosis: one tablet by mouth three times a day Last Documented On 2 10:02AM By Quirino Cabrales [facility] HYDROcodone-Acetaminophen 5- 325 MG Oral Tablet 02/23/2022 - 03/02/2022 Provider: Quirino Tripp MD Diagnosis: one tablet by mouth three times a day Last Documented On 2 11:25AM By Quirino Tripp ; [facility] HYDROcodone-Acetaminophen 5- 325 MG Oral Tablet 02/17/2022 - 02/24/2022 Provider: Quirino Tripp MD Diagnosis: one tablet by mouth three times a day Last Documented On 2 8:12AM By Quirino Cabrales [facility] HYDROcodone-Acetaminophen 5- 325 MG Oral Tablet 02/10/2022 - 02/17/2022 Provider: Quirino Tripp MD Diagnosis: one tablet by mouth three times a day Last Documented On 2 1:41PM By Quirino Tripp ; [facility] HYDROcodone-Acetaminophen 5- 325 MG Oral Tablet 01/27/2022 - 02/03/2022 Provider: Quirino Tripp MD Diagnosis: one tablet by mouth three times a day Last Documented On 2 8:16AM By Quirino Tripp ; [facility] HYDROcodone-Acetaminophen 5- 325 MG Oral Tablet 01/20/2022 - 01/27/2022 Provider: Quirino Tripp MD Diagnosis: one tablet by mouth three times a day Last Documented On 2 9:45AM By Quirino Tripp ; [facility] HYDROcodone-Acetaminophen 5- 325 MG Oral Tablet 01/13/2022 - 01/20/2022 Provider: Quirino Tripp MD Diagnosis: three times a day Last Documented On 2 4:20PM By Quirino Tripp ; [facility] oxyCODONE HCl 5 MG Oral Tablet 01/05/2022 - 01/10/2022 Provider: Quirino hsieh MD Diagnosis: 1-2 po q 4-6h prn post op pa inNOT TO EXCEED MORE THAN 6 TABLETS IN 24 HOURS Last Documented On 2 4:44PM By Quirino Tripp ; [facility] oxyCODONE HCl 5 MG Oral Tablet 12/30/2021 - 01/04/2022 Provider: Quirino hsieh MD Diagnosis: 1-2 po q 4-6h prn post op pa inNOT TO EXCEED MORE THAN 6 TABLETS IN 24 HOURS Last Documented On 2 1:51PM By Quirino Tripp ; [facility] Amoxicillin 500 MG Oral Capsule 12/30/2021 - 01/09/2022 Provider: Quirino hsieh MD Diagnosis: one tablet by mouth three times a day Last Documented On 2 1:51PM By Montse Harkins ; [facility] oxyCODONE HCl 5 MG Oral Tablet 12/24/2021 - 01/16/2023 Provider: Diagnosis: Last Documented On 3 10:07AM By Luz Ruff ; [facility] Benzoyl Peroxide Wash 5% External Liquid 12/15/2021 - 12/16/2021 Provider: Quirino hsieh MD Diagnosis: use as directed by Dr. Tripp Last Documented On 2 9:11AM By Yi Collins ; [facility] Ondansetron HCl 4 MG Oral Tablet 12/15/2021 - 12/25/2021 Provider: Quirino hsieh MD Diagnosis: 1 q 8 hours prn nausea 1 q 8 hours prn post op nausea Last Documented On 2 9:11AM By Yi Collins ; [facility] HYDROcodone-Acetaminophen 5- 325 MG Oral Tablet 12/02/2021 - 12/12/2021 Provider: Quirino Tripp MD Diagnosis: three times a day Last Documented On 2 3:29PM By Quirino Tripp ; [facility] HYDROcodone-Acetaminophen 5- 325 MG Oral Tablet 11/18/2021 - 11/28/2021 Provider: Quirino Tripp MD Diagnosis: three times a day Last Documented On 2 2:55PM By Quirino Tripp ; [facility] HYDROcodone-Acetaminophen 5- 325 MG Oral Tablet 11/05/2021 - 11/15/2021 Provider: Quirino Tripp MD Diagnosis: three times a day Last Documented On 2 12:56PM By Quirino Tripp ; [facility] Furosemide 40 MG Oral Tablet 10/18/2021 - 01/16/2022 Julio fritz: MARIS CORLEY MD Diagnosis: Last Documented On 2 3:57PM By Rosario Pierce ; [facility] HYDROcodone-Acetaminophen 5- 325 MG Oral Tablet 10/18/2021 - 10/28/2021 Provider: Quirino Tripp MD Diagnosis: three times a day Last Documented On 2 2:50PM By Quirino Tripp ; [facility] Ibuprofen 600 MG Oral Tablet 10/18/2021 - 10/23/2021 P rovider: Diagnosis: Last Documented On 2 3:55PM By Rosario Pierce ; [facility] ARIPiprazole 2 MG Oral Tablet 10/18/2021 - 01/16/2022 Provider: MARIS CORLEY MD Diagnosis: Last Documented On 2 3:55PM By Rosario Pierce ; [facility] Potassium Chloride ER 20 MEQ Oral Tablet Extended Release 10/18/2021 - 01/16/2022 Provider: MARIS CORLEY MD Diagnosis: Last Documented On 2 3:55PM By Rosario Pierce ; [facility] Atorvastatin Calcium 10 MG Oral Tablet 10/18/2021 - 12/30/2021 Provider: MARIS Longoria MD Diagnosis: Last Documented On 2 1:18PM By Montse Harkins ; [facility] Venlafaxine HCl ER 150 MG Or al Tablet Extended Release 24 Hour 10/18/2021 - 01/21/2022 Provider: MARIS Longoria MD Diagnosis: Last Documented On 2 12:55PM By Montse Harkins ; [facility] Xanax 0.25 MG Oral Tablet 10/18/2021 - 01/16/2023 Prov ider: Diagnosis: Last Documented On 3 10:07AM By Luz Ruff ; [facility] Venlafaxine HCl ER 150 MG Or al Capsule Extended Release 24 Hour 10/18/2021 - 01/16/2023 Provider: Diagnosis: Last Documented On 3 9:28AM By Luz Ruff ; [facility] David 5-325 MG Oral Tablet 10/18/2021 - 01/16/2023 Pro vider: Diagnosis: Last Documented On 3 9:27AM By Luz Ruff ; [facility] Movantik 12.5 MG Oral Tablet 10/18/2021 - 01/16/2023 P rovider: Diagnosis: Last Documented On 3 10:06AM By Luz Ruff ; [facility] Lomotil 2.5-0.025 MG Oral Tablet 10/18/2021 - 01/17/20 23 Provider: Diagnosis: Last Documented On 3 10:07AM By Luz Ruff ; [facility] HYDROcodone-Acetaminophen 10-325 MG Oral Tablet 10/18/2021 - 01/16/2023 Provider: Diagnosis: Last Documented On 3 9:28AM By Luz Ruff ; [facility] Folic Acid 1 MG Oral Tablet 10/18/2021 - 01/16/2023 Pr ovider: Diagnosis: Last Documented On 3 10:07AM By Luz Ruff ; [facility] Ferrous Sulfate 134 MG Oral Tablet 10/18/2021 - 2022 Provider: Diagnosis: Last Documented On 3 10:07AM By Luz Ruff ; [facility] rOPINIRole HCl 0.25 MG Oral Tablet 10/18/2021 - 2022 Provider: Diagnosis: Last Documented On 3 10:06AM By Luz Ruff ; [facility] Abilify 10 MG Oral Tablet 10/18/2021 - 12/30/2021 Prov ider: Diagnosis: Last Documented On 2 1:18PM By Montse Harkins ; [facility] Colestipol HCl 5 GM Oral Granules 10/18/2021 - 023 Provider: Diagnosis: Last Documented On 3 10:07AM By Luz Ruff ; [facility] Diphenoxylate-Atropine 2.5-0 .025 MG Oral Tablet 10/18/2021 - 01/16/2022 Provider: MARIS CORLEY MD Diagnosis: Last Documented On 2 3:56PM By Rosario Pierce ; [facility] Levothyroxine Sodium 25 MCG Oral Tablet 10/18/2021 - 01/16/2022 Provider: MARIS Longoria MD Diagnosis: Last Documented On 2 3:56PM By Rosario Pierce ; [facility] Carvedilol 25 MG Oral Tablet 10/18/2021 - 01/16/2022 Julio fritz: MARIS CORLEY MD Diagnosis: Last Documented On 2 3:56PM By Rosario Pierce ; [facility] Gabapentin 100 MG Oral Capsule 09/30/2021 - 01/16/2023 Provider: MARIS CORLEY MD Diagnosis: Last Documented On 3 10:07AM By Luz Ruff ; [facility] rOPINIRole HCl 0.25 MG Oral Tablet 08/03/2020 - 2021 Provider: Diagnosis: Last Documented On 2 3:53PM By Rosario Pierce ; [facility] Bactrim DS 800-160 MG Oral Tablet 07/30/2019 - 01/21/2022 Provider: Quirino hsieh MD Diagnosis: twice a day for 7 days Last Documented On 2 12:55PM By Montse Harkins ; [facility] Abilify 10 MG Oral Tablet 06/22/2019 - 10/18/2021 Prov ider: Diagnosis: Last Documented On 2 3:53PM By Rosario Pierce ; [facility] Movantik 12.5 MG Oral Tablet 06/22/2019 - 10/18/2021 P brookeder: Diagnosis: Last Documented On 2 3:54PM By Rosario Pierce ; [facility] Folic Acid 1 MG Oral Tablet 06/22/2019 - 10/18/2021 Pr ovider: Diagnosis: Last Documented On 2 3:54PM By Rosario Pierce ; [facility] David 5-325 MG Oral Tablet 06/22/2019 - 10/18/2021 Pro vider: Diagnosis: Last Documented On 2 3:55PM By Rosario Pierce ; [facility] Lomotil 2.5-0.025 MG Oral Tablet 06/22/2019 - 10/18/19 Provider: Diagnosis: Last Documented On 2 3:54PM By Rosario Pierce ; [facility] Xanax 0.25 MG Oral Tablet 06/22/2019 - 10/18/2021 Prov ider: Diagnosis: Last Documented On 2 3:55PM By Rosario Pierce ; [facility] Ferrous Sulfate 134 MG Oral Tablet 06/22/2019 - 2021 Provider: Diagnosis: Last Documented On 2 3:54PM By Rosario Pierce ; [facility] HYDROcodone-Acetaminophen 10-325 MG Oral Tablet 06/22/2019 - 10/18/2021 Provider: Diagnosis: Last Documented On 2 3:54PM By Rosario Pierce ; [facility] Colestipol HCl 5 GM Oral Granules 06/22/2019 - 022 Provider: Diagnosis: Last Documented On 2 3:54PM By Rosario Pierce ; [facility] Venlafaxine HCl ER 150 MG Or al Capsule Extended Release 24 Hour 06/22/2019 - 10/18/2021 Provider: Diagnosis: Last Documented On 2 3:55PM By Rosario Pierce ; [facility] David 10-325MG Oral Tablet 05/17/2019 - 06/16/2019 Pro vider: Bailey Stanley MD Diagnosis: 1 every 4 - 6 hours as needed Last Documented On 9 11:12AM By Carolina Morocho ; [facility] David 10-325MG Oral Tablet 04/24/2019 - 01/21/2022 Pro vider: Bailey Stanley MD Diagnosis: 1 every 4 - 6 hours as needed Last Documented On 2 12:55PM By Montse Harkins ; [facility] Ibuprofen 600MG Oral Tablet 04/04/2019 - 10/18/2021 Pr ovider: Diagnosis: Last Documented On 2 3:55PM By Rosario Pierce ; [facility] Spironolactone 25MG Oral Tablet 03/21/2019 - 06/22/2019 Provider: MARIS Longoria MD Diagnosis: Last Documented On 9 9:07AM By iLcha Flores ; [facility] Potassium Chloride ER 20MEQ Oral Tablet Extended Release 03/12/2019 - 10/18/2021 Provider: MARIS CORLEY MD Diagnosis: Last Documented On 2 3:55PM By Rosario Pierce ; [facility] ARIPiprazole 2MG Oral Tablet 02/11/2019 - 10/18/2021 Julio fritz: MARIS CORLEY MD Diagnosis: Last Documented On 2 3:56PM By oRsario Pierce ; [facility] Carvedilol 25MG Oral Tablet 02/06/2019 - 10/18/2021 Pr ovider: MARIS CORLEY MD Diagnosis: Last Documented On 2 3:56PM By Rosario Pierce ; [facility] Venlafaxine HCl ER 150MG Ora l Tablet Extended Release 24 Hour 01/21/2019 - 10/18/2021 Provider: MARIS Longoria MD Diagnosis: Last Documented On 2 3:56PM By Rosario Pierce ; [facility] Levothyroxine Sodium 25MCG Oral Tablet 01/10/2019 - 10/18/2021 Provider: MARIS Longoria MD Diagnosis: Last Documented On 2 3:56PM By Rosario Pierce ; [facility] Diphenoxylate-Atropine 2.5-0 .025MG Oral Tablet 01/03/2019 - 10/18/2021 Provider: MARIS CORLEY MD Diagnosis: Last Documented On 2 3:57PM By Rosario Pierce ; [facility] Furosemide 40MG Oral Tablet 10/16/2018 - 10/18/2021 Pr ovider: MARIS CORLEY MD Diagnosis: Last Documented On 2 3:57PM By Rosario Pierce ; [facility] Atorvastatin Calcium 10MG Or al Tablet 09/14/2018 - 10/18/2021 Provider: MARIS Longoria MD Diagnosis: Last Documented On 2 3:57PM By Rosario Pierce ; [facility], [facility] Medications Administered Includes: Administered Medications in patient's chart No Administered Medications Recorded Results Includes: Results from 06/23/2024 through 06/23/2025 No Results Recorded For Specified Dates History of Present Illness History of Present Illness not supported for this document type No History of Present Illness Recorded Social History Description Last Updated Tobacco non-user 01/16/2023 Last Documented On 3 10:19AM ; [facility], [facility] Exercising regularly 01/16/2023 Last Documented On 3 10:19AM ; [facility] Not a smoker 03/30/2022 Last Documented On 2 1:35PM ; [facility] Caffeine use 12/30/2021 Last Documented On 2 2:11PM ; [facility] No recent change in diet 12/30/2021 Last Documented On 2 2:11PM ; [facility] Not a current smoker. 12/30/2021 Last Documented On 2 2:11PM ; [facility] Not a current smoker. 10/07/2020 Last Documented On 1 9:33PM ; [facility] [facility] Non-smoker 08/03/2020 Last Documented On 0 9:49AM ; [facility] No tobacco use 04/24/2019 Last Documented On 9 12:53PM ; [facility] Smoking status : Never smoker 04/24/2019 Last Documented On 9 12:53PM ; [facility] No recent change in diet 04/24/2019 Last Documented On 9 12:53PM ; [facility] Not a current smoker 04/24/2019 Last Documented On 9 12:53PM ; [facility] Not using alcohol 04/24/2019 Last Documented On 9 12:53PM ; [facility] Not using drugs 04/24/2019 Last Documented On 9 12:53PM ; [facility] Procedures and Surgical History Surgical History Last Updated Past Surgical History: Knee surgery ~Decompression Laminectomy (2002) ~Shoulder surgery 01/16/2023 Last Documented On 3 10:19AM ; [facility] History of Previous Fractures 12/30/2021 Last Documented On 2 2:11PM ; [facility] Medical History Includes: Medical History in patient's chart Description Last Updated 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 01/16/2023 Last Documented On 3 10:19AM ; [facility] History of Anemia 01/16/2023 Last Documented On 3 10:19AM ; [facility] History of arthritis 12/30/2021 Last Documented On 2 2:11PM ; [facility] History of Fractures 12/30/2021 Last Documented On 2 2:11PM ; [facility] History of Hypertension 12/30/2021 Last Documented On 2 2:11PM ; [facility] History of Thyroid Disease 12/30/2021 Last Documented On 2 2:11PM ; [facility] Past Surgical History: Knee surgery 12/11 Last Documented On 2 2:11PM ; [facility] Recent immunization for pneumococcal pne umonia 12/30/2021 Last Documented On 2 2:11PM ; [facility] A recent immunization for flu 06/11/2020 10/07/2020 Last Documented On 1 9:33PM ; [facility] Anemia 10/07/2020 Last Documented On 1 9:33PM ; [facility] Arthritis 10/07/2020 Last Documented On 1 9:33PM ; [facility] History of Fractures 10/07/2020 Last Documented On 1 9:33PM ; [facility] Hypertension 10/07/2020 Last Documented On 1 9:33PM ; [facility] Previous Fractures 10/07/2020 Last Documented On 1 9:33PM ; [facility] Sleep Apnea 10/07/2020 Last Documented On 1 9:33PM ; [facility] Thyroid Disease 10/07/2020 Last Documented On 1 9:33PM ; [facility] A previous fracture 04/24/2019 Last Documented On 9 12:53PM ; [facility] Arthritic joint problems 04/24/2019 Last Documented On 9 12:53PM ; [facility] History of depression 04/24/2019 Last Documented On 9 12:53PM ; [facility] History of osteoporosis 04/24/2019 Last Documented On 9 12:53PM ; [facility] Intermittent hypertension 04/24/2019 Last Documented On 9 12:53PM ; [facility] Thyroid disease 04/24/2019 Last Documented On 9 12:53PM ; [facility] Family History Includes: Family History in patient's chart Description Last Updated Family history of systemic hypertension father 12/30/2021 Last Documented On 2 2:11PM ; [facility] Review of Systems Review of Systems not supported for this document type No Review of Systems Recorded Mental Status Description No anxiety Functional Status No Functional Status Recorded Physical Exam Physical Exam not supported for this document type No Physical Exam Recorded Immunizations Includes: Immunizations in patient's chart Vaccine Dose # Date Site Reaction(s) Status Source Influenza 1 01/21/2022 Complete (Refused - Patient objection) [facility] Last Documented On 2 1:16PM ; [facility] PCV (Pneumovax 23) 1 01/21/2022 Complete (Refused - Patient objection) [facility] Last Documented On 2 1:16PM ; [facility] Td 1 01/21/2022 Complete (Refused - Patient objection) [facility] Last Documented On 2 1:16PM ; [facility] Allergies Includes: Active, inactive, and resolved Allergies Substance Type Reaction Onset Date Resolved Date Statu s tiZANidine HCl Allergy 01/16/2023 Acti ve Last Documented On 3 9:50AM ; [facility] Insurance Includes: Active Insurance Policies Plan Name Member ID Group # Subscriber Relationship Effect henri Dates 1 - [facility] /MEDICARE [id number] Tiffanie W Juma Self 09/11/2018 - Unknown 2 - [employer] [id number] Tirso Dennison Clinical Notes Includes: Signed Clinical Notes starting from 08/25/2022 No Clinical Notes Recorded
--- OUTSIDE RECORDS SUMMARY | 2025-06-23 12:49 | XMS_ITS | Encounter Summary ---
Author Organization [employer] ([place], [place], [place], [place]) Address [address] [place] [address] Care Team Providers Care Reflector Driller And Deburrer Name Role Phone Unavailable Primary Care Provider Unavailabl e Encounter Details Date Type Department Care Team (Late st Contact Info) Description 04/05/2019 Transcribed Document [facility] [place] [address] ProviderLeah MD [address] [place] [address] Social History Tobacco Use Types Packs/Day [...] being lifted for 3 days. seen at [facility] yesterday and diagnosed with femur fracture, pain 11/18, took lortab at 0700. AROLDO TOSCANO Rn - 04/05/2019 12:47 EDT AROLDO TOSCANO Rn - 04/05/2019 12:47 EDT DCP GENERIC CODE Tracking Group : [facility] Tracking Acuity : 3 - Urgent AROLDO TOSCANO Rn - 04/05/2019 12:33 EDT Mode of Arrival : Stretcher Transported to ED by : Ambulance/ALS EMS Service : [facility] To Room Via : Stretcher Accompanied By [...] 12:41:20 EDT) Problems(Active) Arnold-Chiari malformation (SNOMED CT :001166137 ) Name of Problem: Arnold-Chiari malformation ; Recorder: AROLDO TOSCANO Rn; Confirmation: Confirmed ; Classification: Medical ; Code: 269223881 ; Contributor System: PowerChart ; Last Updated: 04/05/2019 12:35 EDT ; Life Cycle Date: 04/05/2019 ; Life Cycle Status: Active ; Vocabulary: SNOMED CT CHF (congestive heart failure) (SNOMED CT :40118835 ) Name of Problem: CHF (congestive heart failure) ; Recorder: AROLDO TOSCANO Rn; Confirmation: Confirmed ; Classification: Medical ; Code: 49554473 ; Contributor System: PowerChart ; Last Updated: 04/05/2019 12:35 EDT ; Life Cycle Date: 04/05/2019 ; Life Cycle Status: Active ; Vocabulary: SNOMED CT High cholesterol (SNOMED CT :74212775 ) Name of Problem: High cholesterol ; Recorder: AROLDO TOSCANO Rn; Confirmation: Confirmed ; Classification: Medical ; Code: 16876050 ; Contributor System: PowerChart ; Last Updated: 04/05/2019 12:35 EDT ; Life Cycle Date: 04/05/2019 ; Life Cycle Status: Active ; Vocabulary: SNOMED CT Hypertension (SNOMED CT :2442907086 ) Name of Problem: Hypertension ; Recorder: AROLDO TOSCANO Rn; Confirmation: Confirmed ; Classification: Medical ; Code: 5503046219 ; Contributor System: PowerChart ; Last Updated: 04/05/2019 12:35 EDT ; Life Cycle Date: 04/05/2019 ; Life Cycle Status: Active ; Vocabulary: SNOMED CT Hypothyroid (SNOMED CT :27437160 ) Name of Problem: Hypothyroid ; Recorder: AROLDO TOSCANO Rn; Confirmation: Confirmed ; Classification: Medical ; Code: 17773264 ; Contributor System: PowerChart ; Last Updated: 04/05/2019 12:35 EDT ; Life Cycle Date: 04/05/2019 ; Life Cycle Status: Active ; Vocabulary: SNOMED CT Diagnoses(Active) Leg pain-swelling Date: 04/05/2019 ; Diagnosis Type: Reason For Visit ; Confirmation: Complaint of ; Clinical Dx: Leg pain-swelling ; Classification: Medical ; Clinical Service: Emergency medicine ; Code: PNED ; Probability: 0 ; Diagnosis Code: [id number] ED Height and Weight Height Source : Stated Height Entry Format : [place] Height, Feet : 5 ft(Converted to: 152 cm, 60 Inch) Height, Inches : 3 Inch(Converted to: 0 ft 3 Inch, 7.62 cm) Clinical Height : 160.02 cm Weight Source, ED : Critical estimated dosing weight Weight Entry Format : [place] Weight, Pounds : 170 lb Clinical Dosing Weight : 77.27 kg Body Surface Area (BSA) : 1.81 m2 Body Mass Index : 30.2 kg/m2 (HI) [place] Body Weight (IBW) : 52.02 kg AROLDO [...]
--- OUTSIDE RECORDS SUMMARY | 2025-06-23 12:49 | XMS_ITS | Encounter Summary ---
Author Organization [employer] ([place], [place], [place], [place]) Address [address] [place] [address] Care Team Providers Care Nanosystems Engineer Name Role Phone Unavailable Primary Care Provider Unavailabl e Encounter Details Date Type Department Care Team (Late st Contact Info) Description 04/06/2019 Transcribed Document [facility] [place] [facility] [place] [address] ProviderLeah MD [address] [place] [address] Social History Tobacco Use Types Packs/Day [...] SARANYA Main OR IntraOp Summary Primary Physician: DLAE MALDONADO MD-ORT Finalized Date/Time: 04/16/19 13:09:05 Pt. Name: TIFFANIE STANLEY/Sex: 1960 Female Med Rec #: [id number] Physician: EMILY STEWART MD-INT Financial #: [id number] Pt. Type: I Room/Bed: [facility] Admit/Disch: 04/05/19 16:34:00 - 04/10/19 15:18:00 Institution: [facility] Case Attendance Entry 1 Entry 2 Entry 3 Case Attendee DALE MALDONADO GRAHAM, KIMBERLY, Mine Cook MD-ORT Complex Director Role Performed Surgeon/Proceduralist, Business Unit Controller, First Scrub, First First Time In 04/06/19 08:37:00 04/06/19 08:37:00 04/06/19 08:37:00 Time Out 04/06/19 09:07:00 04/06/19 09:07:00 04/06/19 09:07:00 Procedure Closed Reduction Lower Closed Reduction Lower Closed Reduction Lower Extremity, Knee Joint Extremity, Knee Joint Extremity, Knee Joint Aspiration Aspiration Aspiration Other Attendee Superficial Wound Closed By: Last Modified By: CARLOS NAILS RN GRAHAM, KIMBERLY, CARLOS JARA, RAYMUNDO 04/06/19 08:57:49 04/06/19 08:57:49 04/06/19 08:57:49 Entry 4 Entry 5 Entry 6 Case Attendee SARAH ALONZO PA FLEMING, SCOTT, DO-ANS Crofts, Amber L, Oxygen Therapy Technician Role Performed Enterprise Data Architect, First Anesthesiologist Director Recreation Time In 04/06/19 08:37:00 04/06/19 08:37:00 04/06/19 08:37:00 Time Out 04/06/19 09:07:00 04/06/19 09:07:00 04/06/19 09:07:00 Procedure Closed Reduction Lower Closed Reduction Lower Closed Reduction Lower Extremity, Knee Joint Extremity, Knee Joint Extremity, Knee Joint Aspiration Aspiration Aspiration Other Attendee Superficial Wound Closed By: Last Modified By: CARLOS NAILS, CARLOS JARA, CARLOS JARA, RAYMUNDO 04/06/19 08:58:53 04/06/19 08:57:49 04/06/19 08:57:49 [facility] IntraOp Case Attendance Audit 04/06/19 08:58:53 Intelligence Research Specialist: RU Modifier: RU 4 <+> Role Performed 4 <*> Procedure Closed Reduction Lower Extremity, Knee Joint Aspiration 04/06/19 08:57:49 Intelligence Research Specialist: RU Modifier: RU 1 <+> Time Out [...] [facility] IntraOp Case Times Audit 04/06/19 08:57:37 Intelligence Research Specialist: RU Modifier: RU <+> 1 Out Room [...] RN 04/06/19 08:49:23 [facility] IntraOp General Case Apiculturist 1 Case Information OR OR 01 [facility] [...] Positioned By CARLOS NAILS RN, DALE MALDONADO MD-WILFRIDO, SARAH ALONZO, JAVIER Position Verified Positioning Yes Verified by Anesthesia [...] Yes Elements Complete? RN Sign Out CARLOS NAILS, RN Signature RN Sign Out 04/06/19 08:57:00 [...] Intra Op Sign Out Audit 04/06/19 08:57:25 Intelligence Research Specialist: RU Modifier: RU <+> 1 RN Sign [...] Primary Procedure Yes No Primary Surgeon DALE MALDONADO, DALE MALDONADO MD-ORT GREGGORT Start 04/06/19 08:44:00 04/06/19 08:44:00 Stop 04/06/19 08:57:00 04/06/19 08:57:00 Physician States Cecum Reached Anesthesia Type General General Specialty SN Orthopedic SN Orthopedic Wound Class I - Clean I - Clean Last Modified By: CARLOS NAILS RN GRAHAM, KIMBERLY, RN 04/06/19 08:57:16 04/06/19 08:57:16 [facility] IntraOp Surgical Procedures Audit 04/06/19 08:57:16 Intelligence Research Specialist: RU Modifier: RU 1 <*> Procedure Closed [...] Type Fluoroscopy Fluoroscopy Type C-Arm Site OPSITE Trust Mail Clerk Name PoolAdelita, Oxygen Therapy Technician Protective Devices Yes Used Last Modified By: CARLOS NAILS RN 04/06/19 08:52:11 Case Comments <None> Finalized By: Alice Flowers, RN Document Signatures Signed By: CARLOS NAILS RN 04/06/19 08:58 Alice Flowers RN 04/08/19 10:36 Alice Flowers RN 04/08/19 10:38 Alice Flowers RN 04/16/19 13:09 Unfinalized History Date/Time Username Reason for Unfinalizing Freetext Reason for Unfinalizing 04/08/19 10:33 GERMÁNR Chart Audit 04/08/19 10:37 KEILYINR Chart Audit 04/16/19 13:08 LISET Chart Audit documented in this encounter Plan of Treatment Not on file documented as of this encounter Visit Diagnoses Not on filedocumented in this encounter
--- OUTSIDE RECORDS SUMMARY | 2025-06-23 12:49 | XMS_ITS | Encounter Summary ---
Author Organization [employer] ([place], [place], [place], [place]) Address [address] [place] [address] Care Team Providers Care Loan Adviser Name Role Phone Unavailable Primary Care Provider Unavailabl e Encounter Details Date Type Department Care Team (Late st Contact Info) Description 04/09/2019 Transcribed Document [facility] [place] [facility] [place] [address] ProviderLeah MD [facility] [place] [address] Social History Tobacco Use Types Packs/Day Years Used Date Smoking Tobacco: Never Assessed Comments Unknown Sex and Gender Information Value Date Recorded Sex Assigned at Not on file Legal Sex Female 6:39 PM CDT Gender Identity Not on file Sexual Orientation Not on file documented as of this encounter Miscellaneous Notes * [employer]ner Conversion Note - Leah Dickerson MD - 04/09/2019 2:11 PM CDT Final Discharge Planning Entered On: 04/09/2019 14:13 EDT Performed On: 04/09/2019 14:11 EDT by JENNIFER SOLOMON, Rn-Neonatal Doctor Final Discharge Planning Discharge Arrangements : Patient Post-Acute Information Patient Name: CAMACHO DENNISON Gender: Female : 58 Age: 58 Years Estheraspmar Referral(s): Service: Organization: Business Address: Phone Number: Alf Facility [facility] [address] [place], [address] Important Medicare Message Reviewed With : Patient Important Medicare Message Reviewed D/T : 04/09/2019 14:00 EDT Transportation Needs : Ambulance Discharge Transportation Arrangement Cmt : scheduled for 1500 Tuesday 04/10, transport #[id number] PCS form in front of chart Patient/Family Notified of Plan : Yes Is Patient Ready for Discharge? : Yes Physician Notified Patient is Ready for Discharge? : Yes Discharge To Care Management : SNF with Medicare Certification-03 JENNIFER SOLOMON Rn-Neonatal Doctor - 04/09/2019 14:11 EDT Final Narrative Note Final Narrative Note : Patient has precert for SNF bed that will be available tomorrow at [facility] phone [phone], fax dc summary to [phone] JENNIFER SOLOMON Rn-Neonatal Doctor - 04/09/2019 14:11 EDT documented in this encounter Plan of Treatment Not on file documented as of this encounter Visit Diagnoses Not on filedocumented in this encounter
--- OUTSIDE RECORDS SUMMARY | 2025-06-23 12:49 | XMS_ITS | Encounter Summary ---
Author Organization [employer] ([place], [place], [place], [place]) Address [address] [place] [address] Care Team Providers Care Race Car Mechanic Name Role Phone Unavailable Primary Care Provider Unavailabl e Encounter Details Date Type Department Care Team (Late st Contact Info) Description 04/07/2019 Transcribed Document [facility] [place] [facility] [place] [address] ProviderLeah MD [address] [place] [address] Social History Tobacco Use Types Packs/Day Years Used Date Smoking Tobacco: Never Assessed Comments Unknown Sex and Gender Information Value Date Recorded Sex Assigned at Not on file Legal Sex Female 6:39 PM CDT Gender Identity Not on file Sexual Orientation Not on file documented as of this encounter Miscellaneous Notes * Cerner Conversion Note - Leah Dickerson MD - 04/07/2019 7:07 PM CDT Patient: CAMACHO [...] % 20.9 % Lymph # 1.80 K/uL Hale % 8.7 % Hale # 0.75 K/uL Eos % 2.0 % [...]
--- OUTSIDE RECORDS SUMMARY | 2025-06-23 12:49 | XMS_ITS | Encounter Summary ---
Author Organization [employer] ([place], [place], [place], [place]) Address [address] [place] [address] Care Team Providers Care Diving Coach Name Role Phone Unavailable Primary Care Provider Unavailabl e Encounter Details Date Type Department Care Team (Late st Contact Info) Description 04/08/2019 Transcribed Document [facility] [place] [facility] [place] [address] ProviderLeah MD [facility] [place] [address] Social History Tobacco Use Types [...] Policy Numbers : Insurance 1 Health Plan: [facility] MEDICARE ADVANTAGE Policy Number: [id number] Authorization Number: [id number] Insurance 2 Health Plan: [employer] Policy Number: [id number] Authorization Number: Insurance Primary Name : [facility] Medicare Advantage Authorization Status-Primary : Awaiting callback Reference Number-Primary : [id number] pended Authorized Service Begin Date-Primary : 04/05/2019 EDT Historical Authorization Comments-Primary : Comment 1: Uploaded clinicals to [facility] Medicare via [employer]. (ELIZABETH CASSIDY RN-Utilization Review 04/06/2019 09:10) MARITZA HERNDON RN-Utilization Review - 04/08/2019 9:37 EDT documented in this encounter Plan of Treatment Not on file documented as of this encounter Visit Diagnoses Not on filedocumented in this encounter
--- OUTSIDE RECORDS SUMMARY | 2025-06-23 12:49 | XMS_ITS | Encounter Summary ---
Author Organization [employer] ([place], [place], [place], [place]) Address [address] [place] [address] Care Team Providers Care Junction Maker Name Role Phone Unavailable Primary Care Provider Unavailabl e Encounter Details Date Type Department Care Team (Late st Contact Info) Description 04/06/2019 Transcribed Document [facility] [place] Family Medicine [facility] [place] [address] ProviderLeah MD [address] [place] [id number] Social History Tobacco Use Types Packs/Day Years Used Date Smoking Tobacco: Never Assessed Comments Unknown Sex and Gender Information Value Date Recorded Sex Assigned at Not on file Legal Sex Female 6:39 PM CDT Gender Identity Not on file Sexual Orientation Not on file documented as of this encounter Miscellaneous Notes * Cerner Conversion Note - Leah Dickerson MD - 04/06/2019 9:07 AM CDT DATE OF [...] of cylinder cast. SURGEON: Bailey Stanley MD PASTE UP WORKER: MARII Stephen necessary for positioning and holding [...]
--- OUTSIDE RECORDS SUMMARY | 2025-06-23 12:49 | XMS_ITS | Data Portability ---
Author Organization [employer] [facility] Address [address] [place] [address] Assessment No assessment recorded. Plan of Treatment Reminders Order Date Submit Date Provider Last Modified By Organization Details Last Modified Time Details Appointments None recorded. Lab None recorded. Referral None recorded. Procedures None recorded. Surgeries None recorded. Imaging None recorded. Medication Orders ketorolac 60 mg/2 mL intramuscul ar solution 2023 [id number] [facility] [employer] [id number], [address] , [place], [place], [id number], 16:00:49 Patient TargetsNo targets recorded. Patient Instructions Encounter Date Encounter Id Patient Instructions Last Modified By Organization Details Last Modified Time 08/06/2024 [id number] head or face pain: care instructions [email or web address] Not available 08/06/2024 15:29:56 Reviewed ER note s - no fracture Reviewed records from Dr Hagan Patient showed me text/message thread where she asked Dr Hagan for pain meds and she declined; told ER doctor that she was just here for pain medicine Explained that I could not write her narcotic pain medication either but did offer Toradol, which she accepted [email or web address] Not available 08/06/2024 15:59:29 Reason for Referral None Reported. Problems Name Problem SNOMED Code Status Onset Date Resolution Date Notes Provider Name and Address Organization Details Recorded Time Contusion of face 398353195 Active JAVIER King [address] [place], [address], [employer]. 15:58:21 Problem Notes None recorded. Procedures Surgical History Date Name Laterality Status Provider Name and Address Organization Details Recorded Time Orthopedic Surgery completed [employer] 08/06/2024 14:27:50 Neurosurgery completed Meme [facility] [employer] [facility] [employer]. 08/06/2024 14:31:41 Imaging Results None recorded. Procedure Notes None recorded. Medical Equipment None Reported. Allergies Allergen ID Allergen Name Allergen Category Reaction Reaction Severity Criticality Documentation Date Start Date Code Code System Note Provider Name and Address Organization Details Recorded Time 32979 tizanidin e medicatio n Not available Not available Not available 08/06/2024 17480 RxNorm [facility] [employer]. 14:21:19 Medications Name Sig Start Date Stop [...] saturation in Arterial blood by Pulse oximetry Pain severity - 0-10 verbal numeric rating [Score] - Reported Systolic And Diastolic Provider Name and Address Organization Details Last Updated DateTime 4 144.78 cm 31.7 kg/m2 06418.6 4 g 97.5 [degF] 97 /min 97 % 97 % 8 113/68 mm[Hg] Meme Castillo [employer] 14:17:09 Social History Question Answer Notes LastModified by Organizat ion Details LastModified Time Tobacco Smoking Status Former Smoker Meme Castillo [facility] [employer] 08/06/2024 14:15:36 Do You Have An Advance [...] Information not available 08/06/2024 What Type Of Manager Acquisition Do You Use? None Information not available [...] Or The Highest Degree You Have Received? [id number] Information not available 08/06/2024 Have There Been [...] Do You Have A Medical Power Of Trapper Animal? No Information not available 08/06/2024 What Was [...] Functional Status Question Answer Note LastModified by [employer] ion Details LastModified Time Do you use [...] not available 08/06/2024 Are you able to walk independently without assistance or assistive devices? NOINDWHEEL Information not available 08/06/2024 Do you have difficulty doing errands alone? Yes Information not available 08/06/2024 Are you able to care for yourself independently? Yes Information not available 08/06/2024 Do you have difficulty dressing, bathing, grooming, or toileting? Yes Information not available 08/06/2024 What is your exercise level? None Information not available 08/06/2024 Mental Status Question Answer Note LastModified by Organizat ion Details LastModified Time Do you feel stressed (tense, restless, nervous, or anxious, or unable to sleep at night)? [id number] Information not available 08/06/2024 Do you have [...] Artery Disease N Other N Gout N Kidney Stones Y Blood Diseases N Hyperthyroidism N Blood Transfusion N Breast Cancer N Emergency room visit since last appointm ent. Y COPD N Depression Y Dermatologic Disorders N Hypothyroidism N Lung Disease N Developmental or Behavioral Disorders N Defects or Inherited Disease N Breast Problem N Difficulty Swallowing N [...] N High Cholesterol Y Liver Disease N Organ Transplant N Psychiatric/Mental Health Condition N Fibromyalgia N Dialysis N Schizophrenia N Headaches N Kidney Disease N Allergies/Hayfever N Heart Problems N Ear or Hearing Problems N Hospitalizations N Learning Disorder N Artificial Joints N Thyroid Problems Y GI Problems N Acne N ADD/ADHD N Eating Disorder N Anemia N Constipation N Mental Illness N Ovarian Cancer N Diabetes N Bedwetting N Hepatitis/Liver Disease Y Tuberculosis N Eczema N Diverticulitis N Abuse/Domestic Violence N Asthma N Trauma/Violence N Substance Abuse [...] Recorded Time Tdap 4 completed JAVIER King [address] [place] [address], [phone], [facility] 08/09/2024 17:27:38 pneumococcal polysaccharide PPV23 2 completed JAVIER King [address] [place] [address], [phone], [facility] [employer] 08/09/2024 17:28:03 influenza, unspecified formulation 3 completed JAVIER King [address] [place] [address], [phone], [facility] [employer] 08/09/2024 17:28:28 Past Encounters Encounter ID Performer Location Encounter Start Date Encounter Closed Date Diagnosis/Indication Diagnosis SNOMED-CT Code Diagnosis ICD10 Code Diagnosis IMO Codes Diagnosis Note [id number] JAVIER King [facility] [address] [place] [address] 08/06/2024 13:05:56 08/06/2024 16:13:47 Pain in face 21952305 R51.9 Contusion of face 105108 004 S00.83XA Health Concerns Section Related Observation LastModified by Organization Detai ls LastModified Time None Recorded Concern Status LastModified by Organization Details LastModified Time None Recorded Advance Directives Directive N: Payers Insurance Date Sequence Insurance Name Policy Number Policy Cantu Covered Member ID Cantu Member ID Guarantor Name 08/06/2024 1 [facility] () Tiffanie Dennison [id number] Tiffanie Dennison 08/06/2024 2 [facility] [id number] Tiffanie Dennison [id number] Tiffanie Dennison Notes Date Note Type Note [...] a week with no relief. JAVIER King [address] [place] [address], [place], [phone], [facility] [employer] 08/06/2024 16:00:53 OBGyn Episode No OBEpisode recorded.
--- OUTSIDE RECORDS SUMMARY | 2025-06-23 12:49 | XMS_ITS | Encounter Summary ---
Author Organization [employer] ([place], [place], [place], [place]) Address [address] [place] [address] Care Team Providers Care Sql Report Analyst Name Role Phone Unavailable Primary Care Provider Unavailabl e Encounter Details Date Type Department Care Team (Late st Contact Info) Description 04/08/2019 Transcribed Document [facility] [place] Family Medicine [address] [place] [address] ProviderLeah MD [address] [place] [address] Social History Tobacco Use Types Packs/Day Years Used Date Smoking Tobacco: Never Assessed Comments Unknown Sex and Gender Information Value Date Recorded Sex Assigned at Not on file Legal Sex Female 6:39 PM CDT Gender Identity Not on file Sexual Orientation Not on file documented as of this encounter Miscellaneous Notes * Cerner Conversion Note - Leah Dickerson MD - 04/08/2019 11:10 AM CDT Patient: CAMACHO DENNISON Age: 58 years Sex: Female : 1960 Associated Diagnoses: None Author: RUSSELL BELL, PharmD Pharmacy verified patient's allergies and home [...] mg oral tablet 1 Tab, Oral, BID [place] 7.5 mg-325 mg oral tablet 1 Tab, PRN, Oral, Q6H potassium chloride 20 mEq oral tablet, extended release 20 mEq = 1 Tab, Oral, Daily spironolactone 25 mg, Oral, BID Synthroid 25 mcg, Oral, Daily venlafaxine 150 mg oral capsule, extended release 150 mg = 1 Cap, Oral, At Bedtime Allergies (1) Active Reaction No Known Medication Allergies ThanksRussell, PharmD/MSCR Electronically signed by [facility] Conversion Cushion Mat Maker [employer] at 12/26/2022 12:50 PM CDT documented in this encounter Plan of Treatment Not on file documented as of this encounter Visit Diagnoses Not on filedocumented in this encounter
--- OUTSIDE RECORDS SUMMARY | 2025-06-23 12:49 | XMS_ITS | Encounter Summary ---
Author Organization [employer] ([place], [place], [place], [place]) Address [address] [place] [address] Care Team Providers Care Field Representative/Health Education Name Role Phone Unavailable Primary Care Provider Unavailabl e Encounter Details Date Type Department Care Team (Late st Contact Info) Description 04/07/2019 Transcribed Document [facility] [place] Family Medicine [facility] [place] [address] ProviderLeah MD [facility] [place] [address] Social History Tobacco Use Types [...]
--- OUTSIDE RECORDS SUMMARY | 2025-06-23 12:49 | XMS_ITS | Encounter Summary ---
Author Organization [employer] ([place], [place], [place], [place]) Address [address] [place] [address] Care Team Providers Care Product Development Ecologist Name Role Phone Unavailable Primary Care Provider Unavailabl e Encounter Details Date Type Department Care Team (Late st Contact Info) Description 04/06/2019 Transcribed Document [facility] [place] [facility] [place] [address] ProviderLeah MD [facility] [place] [address] Social History Tobacco Use Types [...] 04/10/2019 EDT Anticipated Discharge To, CM : senior care facility Current Home Treatment/Equipment : Current Home Treatment/Equipment No qualifying data available. JOHN LIM, KRUNAL - 04/06/2019 11:59 EDT Discharge Needs II Professional Skilled Services : Professional Skilled Services No qualifying data available. Needs Assistance with Transportation : Maybe Discharge Options Discussed with Patient : intermodal dispatcher rehabilitation, Short term rehabilitation JOHN LIM, KRUNAL - 04/06/2019 11:59 EDT Narrative Note Narrative Note : Pt is 58 year old female who is residing currently in [facility] with her parents. She recently sold her [...] to go to a rehab facility at [place] and reports she would like to go to [facility] in [place]. She states her second choice is [facility] in [place]. According to her face sheet, she has [facility] Medicare advantage as primary and for life as secondary. PT has not seen or evaluated pt yet. Referral will be made to [facility] and [place] after PT/OT has seen and evaluated. Will continue to follow. JOHN CANNON, KRUNAL - 04/06/2019 11:59 EDT documented in this encounter Plan of Treatment Not on file documented as of this encounter Visit Diagnoses Not on filedocumented in this encounter
--- OUTSIDE RECORDS SUMMARY | 2025-06-23 12:49 | XMS_ITS | Encounter Summary ---
Author Organization [employer] ([place], [place], [place], [place]) Address [address] [place] [address] Care Team Providers Care Strategic Partnership Specialist Name Role Phone Unavailable Primary Care Provider Unavailabl e Encounter Details Date Type Department Care Team (Late st Contact Info) Description 04/05/2019 Transcribed Document [facility] [place] [facility] [place] [address] ProviderLeah MD [facility] [place] [address] Social History Tobacco Use Types Packs/Day Years Used Date Smoking Tobacco: Never Assessed Comments Unknown Sex and Gender Information Value Date Recorded Sex Assigned at Not on file Legal Sex Female 6:39 PM CDT Gender Identity Not on file Sexual Orientation Not on file documented as of this encounter Miscellaneous Notes * Cerner Conversion Note - Leah Dickerson MD - 04/05/2019 5:54 PM CDT Patient: CAMACHO DENNISON Age: 58 Years Sex: Female : 1960 [...] evaluated her today and referred her to [facility] for defintive care. She has a hx [...]
--- OUTSIDE RECORDS SUMMARY | 2025-06-23 12:49 | XMS_ITS | Encounter Summary ---
Author Organization [employer] ([place], [place], [place], [place]) Address [address] [place] [address] Care Team Providers Care Gum Worker Name Role Phone Unavailable Primary Care Provider Unavailabl e Encounter Details Date Type Department Care Team (Late st Contact Info) Description 04/08/2019 Transcribed Document [facility] [place] [facility] [place] [address] ProviderLeah MD [address] [place] [address] Social History Tobacco Use Types Packs/Day Years Used Date Smoking Tobacco: Never Assessed Comments Unknown Sex and Gender Information Value Date Recorded Sex Assigned at Not on file Legal Sex Female 6:39 PM CDT Gender Identity Not on file Sexual Orientation Not on file documented as of this encounter Miscellaneous Notes * Cerner Conversion Note - Leah Dickerson MD - 04/08/2019 11:30 AM CDT On Going Discharge Planning Entered On: 04/08/2019 11:32 EDT Performed On: 04/08/2019 11:30 EDT by JENNIFER SOLOMON, Rn-Advanced Manufacturing Vice PresidentSound Recording Technician Progress Note Discharge Arrangements : Patient Post-Acute Information Patient Name: CAMACHO DENNISON Gender: Female : [birth year] Age: 58 Years No Post-Acute Placement(s) Listed No Post-Acute Service(s) Listed No [place] Referral(s) Listed Discharge Options Discussed with Patient : tank terminal gauger rehabilitation, Short term rehabilitation Barriers to Discharge [...] you Attend Multidisciplinary Rounds? : No JENNIFER SOLOMON, Rn-Advanced Manufacturing Vice President - 04/08/2019 11:30 EDT Narrative Progress Note Narrative Progress Note : Patient is awaiting bed offer, CM left for [facility] and updated referral in [facility]. JENNIFER SOLOMON Rn-Advanced Manufacturing Vice President - 04/08/2019 11:30 EDT documented in this encounter Plan of Treatment Not on file documented as of this encounter Visit Diagnoses Not on filedocumented in this encounter
--- OUTSIDE RECORDS SUMMARY | 2025-06-23 12:49 | XMS_ITS | Encounter Summary ---
Author Organization [employer] ([place], [place], [place], [place]) Address [address] [place] [address] Care Team Providers Care Cylinder Press Operator Helper Name Role Phone Unavailable Primary Care Provider Unavailabl e Encounter Details Date Type Department Care Team (Late st Contact Info) Description 04/05/2019 Transcribed Document [facility] [place] Family [place] [facility] [address] ProviderLeah MD [address] [place] [address] Social History Tobacco Use Types Packs/Day [...] the text rendition version of the form. Electronically signed by Umm Maya Conversion Photographic Laboratory Supervisor [employer] at 12/26/2022 1:00 PM CDT documented in this encounter Plan of Treatment Not on file documented as of this encounter Visit Diagnoses Not on filedocumented in this encounter
--- OUTSIDE RECORDS SUMMARY | 2025-06-23 12:49 | XMS_ITS | Encounter Summary ---
Author Organization [employer] ([place], [place], [place], [place]) Address [address] [place] [address] Care Team Providers Care Utility Sales And Service Manager Name Role Phone Unavailable Primary Care Provider Unavailabl e Encounter Details Date Type Department Care Team (Late st Contact Info) Description 04/05/2019 Transcribed Document [facility] [place] Family Medicine [address] [place] [address] ProviderLeah MD [address] [place] [address] Social History Tobacco Use Types Packs/Day Years Used Date Smoking Tobacco: Never Assessed Comments Unknown Sex and Gender Information Value Date Recorded Sex Assigned at Not on file Legal Sex Female 6:39 PM CDT Gender Identity Not on file Sexual Orientation Not on file documented as of this encounter Miscellaneous Notes * Cerner Conversion Note - Leah ProviderMD - 04/05/2019 5:48 PM CDT Evaluation, [...] is limited by 90%, L elbow 3+/5, laboratory miller 4+/5 JOEL PINO, PT - 04/06/2019 14:53 [...] Transfer Training : Verbalizes understanding, Needs reinforcement JEOL PINO, PT - 04/06/2019 14:53 EDT Indication [...] JOEL PINO, PT - 04/06/2019 14:53 EDT Shelter Goals Other PT LTG Grid Goal #1 [...] 04/06/2019 14:53 EDT Electronically signed by [facility] Conversion Bulb Farmworker Cerner at 12/26/2022 12:42 PM CDT documented in this encounter Plan of Treatment Not on file documented as of this encounter Visit Diagnoses Not on filedocumented in this encounter
--- OUTSIDE RECORDS SUMMARY | 2025-06-23 12:49 | XMS_ITS | Encounter Summary ---
Author Organization [employer] ([place], [place], [place], [place]) Address [address] [place] [address] Care Team Providers Care Corrective Therapy Aide Teacher Name Role Phone Unavailable Primary Care Provider Unavailabl e Encounter Details Date Type Department Care Team (Late st Contact Info) Description 04/07/2019 Transcribed Document [facility] [place] Family Medicine [address] [place] [address] ProviderLeah MD [facility] [place] [address] Social History Tobacco Use Types Packs/Day Years Used Date Smoking Tobacco: Never Assessed Comments Unknown Sex and Gender Information Value Date Recorded Sex Assigned at Not on file Legal Sex Female 6:39 PM CDT Gender Identity Not on file Sexual Orientation Not on file documented as of this encounter Miscellaneous Notes * Cerner Conversion Note - Leah ProviderMD - 04/07/2019 5:00 AM CDT Chart Check - Review Order Profile Entered On: 04/07/2019 3:53 EDT Performed On: 04/07/2019 5:00 EDT by Asiya Kelly, Rn Chart Check Powerplans Initiated/Discontinued as Appropriate : Yes All Active Orders Reviewed : Yes Asiya Kelly Rn - 04/07/2019 3:53 EDT Electronically signed by Umm Maya Conversion Assistant Professor Of Communication Cerner at 12/26/2022 12:45 PM CDT documented in this encounter Plan of Treatment Not on file documented as of this encounter Visit Diagnoses Not on filedocumented in this encounter
--- OUTSIDE RECORDS SUMMARY | 2025-06-23 12:49 | XMS_ITS | Encounter Summary ---
Author Organization [employer] ([place], [place], [place], [place]) Address [address] [place] [address] Care Team Providers Care Analysis Specialist Name Role Phone Unavailable Primary Care Provider Unavailabl e Encounter Details Date Type Department Care Team (Late st Contact Info) Description 04/08/[address] [facility] [place] Medicine [facility] [place] [address] ProviderLeah MD [facility] [place] [address] Social History Tobacco Use Types Packs/Day Years Used Date Smoking Tobacco: Never Assessed Comments Unknown Sex and Gender Information Value Date Recorded Sex Assigned at Not on file Legal Sex Female 6:39 PM CDT Gender Identity Not on file Sexual Orientation Not on file documented as of this encounter Miscellaneous Notes * Cerner Conversion Note - Leah ProviderMD - 04/08/2019 11:28 AM CDT Initial Discharge Planning Entered On: 04/08/2019 11:30 EDT Performed On: 04/08/2019 11:28 EDT by JENNIFER SOLOMON, Rn-Tennis Camp Instructor Initial Assessment I Previously Documented Living Environment [...] Brother Enter Doctors Name : Meagan Hagan [phone] Does Patient have PCP Listed? : Yes Patient's Home Caregiver Name/Relationship : parents, Thai Card Patient's Home Caregiver Legal Guardian : No Is Guardianship Needed : No JENNIFER SOLOMON Rn-Tennis Camp Instructor - 04/08/2019 11:28 EDT Initial Assessment II Sensory and Motor Deficits : Weakness, Other: femur fx and humerous fx Current Home Treatments and Equipment : Walker, Wheelchair JENNIFER SOLOMON Rn-Tennis Camp Instructor - 04/08/2019 11:28 EDT Discharge Needs I Anticipated Discharge Date : 04/10/2019 EDT Anticipated Discharge To, CM : half-way facility Current Home Treatment/Equipment : Current Home Treatment/Equipment Current Home Treatments and Equipment: Walker, Wheelchair (04/06/19 11:59:00) JENNIFER SOLOMON Rn-Tennis Camp Instructor - 04/08/2019 11:28 EDT Discharge Needs II Professional Skilled Services : Professional Skilled Services No qualifying data available. Needs Assistance with Transportation : Maybe Discharge Options Discussed with Patient : residential rehabilitation, Short term rehabilitation JENNIFER SOLOMON Rn-Tennis Camp Instructor - 04/08/2019 11:28 EDT Narrative Note Narrative Note : Patient is of spouse with service. She lives independently in ADA accomidating house. JENNIFER SOLOMON Rn-Tennis Camp Instructor - 04/08/2019 11:28 EDT documented in this encounter Plan of Treatment Not on file documented as of this encounter Visit Diagnoses Not on filedocumented in this encounter
--- OUTSIDE RECORDS SUMMARY | 2025-06-23 12:49 | XMS_ITS | Encounter Summary ---
Author Organization [employer] ([place], [place], [place], [place]) Address [address] [place] [address] Care Team Providers Care Property Supervisor Name Role Phone Unavailable Primary Care Provider Unavailabl e Encounter Details Date Type Department Care Team (Late st Contact Info) Description 04/06/2019 Transcribed Document [facility] [place] [address] [place] [address] ProviderLeah MD [address] [place] [address] Social History Tobacco Use Types Packs/Day Years Used Date Smoking Tobacco: Never Assessed Comments Unknown Sex and Gender Information Value Date Recorded Sex Assigned at Not on file Legal Sex Female 6:39 PM CDT Gender Identity Not on file Sexual Orientation Not on file documented as of this encounter Miscellaneous Notes * Cerner Conversion Note - Leah ProviderMD - 04/06/2019 9:09 AM CDT etl consultant Form Entered On: 04/06/2019 9:09 EDT Performed On: 04/06/2019 9:09 EDT by ELIZABETH CASSIDY RN-Utilization Review UM Additional Information UM Additional Comment : Request for inpt stay. Clinicals to follow. ICD 10: S72.90Xa; W19.XXXA; R42; M25.561; M25.511; Q07.00 ELIZABETH CASSIDY RN-Utilization Review - 04/06/2019 9:09 EDT documented in this encounter Plan of Treatment Not on file documented as of this encounter Visit Diagnoses Not on filedocumented in this encounter
--- OUTSIDE RECORDS SUMMARY | 2025-06-23 12:49 | XMS_ITS | Clinical Summary ---
Author Organization [facility] Address [address] [place] [address] Phone Care Team Providers Care Environmental Manager Name Role Phone BARNEY HIGH, MARIS Ruano Unavailable [phone] Guy Alcaraz MD Unavailable [phone] Reason for Visit and Chief Complaint The Chief Complaint is: Left ankle pain Problems Includes: Problems addressed during this encounter and other active Problems Current Visit Onset Date Resolved Date Provider Conditio n Status Left Ankle Joint Pain 01/16/2023 Modesto Zhang DPM Active Last Documented On 3 9:24AM ; [facility], [facility] Past Visits Onset Date Resolved Date Provider Condition Status History of Joint Pain Shoulder Right 10/18/2021 01/16/2023 Modesto Zhang DPM Resolved Last Documented On 3 9:23AM ; [facility], [facility] Joint Pain Shoulder 02/05/2020 01/16/2023 Modesto Zhang D PM Resolved Last Documented On 3 9:24AM ; [facility], [facility] Joint Pain Right Knee 04/24/2019 01/16/2023 Modesto Zhang DPM Resolved Last Documented On 3 9:23AM ; [facility], [facility] Plan of Treatment I had a lengthy discussion with this patient regarding the findings. She has a multitude of significant underlying medical problems. She does live by herself. SheIs going to need a higher level of care than what we can provide at a community based facility. She may need hospitalization she may need extended care at a correction facility. She tells me she is not in favor of going to a correction facility due to previous experience from some of her previous surgeries. Nonetheless, this subacute presentation of a bimalleolar ankle fracture may actually involve a little more. In my opinion a CT scan would be required. The alignment is okay although not perfect. She is not significantly ambulatory. The debate is whether or not to proceed surgically which would have significant risk factors with her peripheral edema etc. She does not wish to pursue anything surgically unless absolutely necessary. I think the best option for this patient with her multiple comorbid medical conditions is to be managed at the [facility] where multiple subspecialist are available more readily. This is in fact her wish. We will facilitate that. The best option for her in my opinion is for her to go to the emergency department to be properly evaluated and the proper subspecialty services consulted. She is understanding of this. At this time I am not going to apply any type of immobilizing boot or cast as it would immediately be removed upon arrival by the treating physicians at the [facility]. She is understanding of this. She has transportation which will take her to the [facility]. she is understanding and agreeable with this plan of care - Last Documented On 01/16/2023 10:19AM ; [facility] Instructions to patient Lose weight Last Documented On 3 9:54AM ; [facility] Assessments Includes: Assessments from this encounter Findings Debilitated state with chronic effects of Chiari malformation upper and lower extremities. - Last Documented On 01/16/2023 10:19AM ; [facility] Bimalleolar ankle fracture left. - Last Documented On 01/16/2023 10:19AM ; [facility] Lymphedema bilateral lower extremities left greater than right. - Last Documented On 01/16/2023 10:19AM ; [facility] Osteopenia - Last Documented On 01/16/2023 10:19AM ; [facility] Instructions Includes: Instructions from this encounter Instructions to patient Lose weight Last Documented On 3 9:54AM ; [facility] Medical Equipment - Implanted Devices Includes: Current Devices No Medical Equipment Recorded Medications Includes: Medications discussed during this encounter and other current Medications Discontinued / Stopped on this date on 12/24/2021 oxyCODONE HCl 5 MG Oral Tablet Provider: Diagnosis: Last Documented On 3 10:07AM By Luz Ruff ; [facility], [facility] Xanax 0.25 MG Oral Tablet Provider: Diagnosis: Last Documented On 3 10:07AM By Luz Ruff ; [facility], [facility] Venlafaxine HCl ER 150 MG Or al Capsule Extended Release 24 Hour Provider: Diagnosis: Last Documented On 3 9:28AM By Luz Ruff ; [facility], [facility] Ypsilanti 5-325 MG Oral Tablet Provider: Diagnosis: Last Documented On 3 9:27AM By Luz Ruff ; [facility], [facility] Movantik 12.5 MG Oral Tablet Provider: Diagnosis: Last Documented On 3 10:06AM By Luz Ruff ; [facility], [facility] Lomotil 2.5-0.025 MG Oral Tablet Provider : Diagnosis: Last Documented On 3 10:07AM By Luz Ruff ; [facility], [facility] HYDROcodone-Acetaminophen 10-325 MG Oral Tablet Provider: Diagnosis: Last Documented On 3 9:28AM By Luz Ruff ; [facility], [facility] Folic Acid 1 MG Oral Tablet Provider: Diagnosis: Last Documented On 3 10:07AM By Luz Ruff ; [facility], [facility] Ferrous Sulfate 134 MG Oral Tablet Provid er: Diagnosis: Last Documented On 3 10:07AM By Luz Ruff ; [facility], [facility] rOPINIRole HCl 0.25 MG Oral Tablet Provid er: Diagnosis: Last Documented On 3 10:06AM By Luz Ruff ; [facility], [facility] Colestipol HCl 5 GM Oral Granules Provide r: Diagnosis: Last Documented On 3 10:07AM By Luz Ruff ; [facility], [facility] Gabapentin 100 MG Oral Capsule Provider: MARIS CORLEY MD Diagnosis: Last Documented On 3 10:07AM By Luz Ruff ; [facility], [facility] Current Medications (continue as prescribed) Calcium 600+D 600-10 MG-MCG Oral Tablet 01/16/2023 P rovider: Diagnosis: Last Documented On 3 10:07AM By Luz Ruff ; [facility], [facility] Ascorbic Acid 1000 MG Oral Tablet 01/16/2023 Provide r: Diagnosis: Last Documented On 3 10:07AM By Luz Ruff ; [facility] Lidocaine Viscous HCl 2% Mouth/Throat Solution 023 Provider: Diagnosis: Last Documented On 3 10:11AM By Luz Ruff ; [facility] Ibuprofen 800 MG Oral Tablet 01/16/2023 Provider: Diagnosis: Last Documented On 3 10:11AM By Luz Ruff ; [facility] Fluorometholone 0.1% Ophthalmic Suspension 01/16/2023 Provider: Diagnosis: Last Documented On 3 10:10AM By Luz Ruff ; [facility] Gabapentin 100 MG Oral Capsule 01/16/2023 Provider: Diagnosis: Last Documented On 3 10:10AM By Luz Ruff ; [facility] FeroSul 325 (65 Fe) MG Oral Tablet 01/16/2023 Provid er: Diagnosis: Last Documented On 3 10:10AM By Luz Ruff ; [facility] Erythromycin 5 MG/GM Ophthalmic Ointment 01/16/2023 Provider: Diagnosis: Last Documented On 3 10:09AM By Luz Ruff ; [facility] Diphenoxylate-Atropine 2.5-0.025 MG Oral Tablet 2022 Provider: Diagnosis: Last Documented On 3 10:09AM By Luz Ruff ; [facility] Chlorhexidine Gluconate 0.12% Mouth/Throat Solution Provider: Diagnosis: Last Documented On 3 10:09AM By Luz Ruff ; [facility] Calmoseptine 0.44-20.6% External Ointment 01/16/2023 Provider: Diagnosis: Last Documented On 3 10:09AM By Luz Ruff ; [facility] Olopatadine HCl 0.1% Ophthalmic Solution 01/16/2023 Provider: Diagnosis: Last Documented On 3 10:09AM By Luz Ruff ; [facility], [facility] Promethazine HCl 25 MG Oral Tablet 01/16/2023 Provid er: Diagnosis: Last Documented On 3 10:08AM By Luz Ruff ; [facility], [facility] rOPINIRole HCl 0.5 MG Oral Tablet 01/16/2023 Provide r: Diagnosis: Last Documented On 3 10:08AM By Luz Ruff ; [facility], [facility] HYDROcodone-Acetaminophen 7. 5-325 MG Oral Tablet 01/09/2023 Provider: MARIS CORLEY MD Diagnosis: Last Documented On 3 9:27AM By Luz Ruff ; [facility], [facility] Eye Itch Relief 0.025% Ophthalmic Solution 01/08/2023 Provider: Diagnosis: Last Documented On 3 10:06AM By Luz Ruff ; [facility], [facility] Levothyroxine Sodium 150 MCG Oral Tablet 01/01/2023 Provider: MARIS CORLEY MD Diagnosis: Last Documented On 3 9:27AM By Luz Ruff ; [facility], [facility] Furosemide 20 MG Oral Tablet 12/29/2022 Provider: MARIS CORLEY MD Diagnosis: Last Documented On 3 9:27AM By Luz Ruff ; [facility], [facility] Synthroid 175 MCG Oral Tablet 12/09/2022 Provider: MARIS CORLEY MD Diagnosis: Last Documented On 3 10:06AM By Luz Ruff ; [facility], [facility] prednisoLONE Acetate 1% Ophthalmic Suspension 12/10/19 Provider: Diagnosis: Last Documented On 3 10:06AM By Luz Ruff ; [facility], [facility] Venlafaxine HCl ER 150 MG Or al Capsule Extended Release 24 Hour 12/06/2022 Provider: MARIS DIAS MD Diagnosis: Last Documented On 3 9:27AM By Luz Ruff ; [facility], [facility] ARIPiprazole 2 MG Oral Tablet 11/22/2022 Provider: MARIS CORLEY MD Diagnosis: Last Documented On 3 9:27AM By Luz Ruff ; [facility] Spironolactone 25 MG Oral Tablet 09/12/2022 Provider : MARIS CORLEY MD Diagnosis: Last Documented On 3 10:08AM By Luz Ruff ; [facility] Nystatin 055680 UNIT/GM External Cream 08/09/2022 Pr ovider: MARIS CORLEY MD Diagnosis: Last Documented On 3 10:11AM By Luz Ruff ; [facility] Past Medications on file HYDROcodone-Acetaminophen 5- 325 MG Oral Tablet 05/17/2022 - 05/24/2022 Provider: Quirino Tripp MD Diagnosis: one tablet by mouth three ti mes a daylast prescription Last Documented On 2 3:28PM By Quirino Tripp ; [facility] HYDROcodone-Acetaminophen 5- 325 MG Oral Tablet 05/04/2022 - 05/11/2022 Provider: Quirino Tripp MD Diagnosis: one tablet by mouth three times a day Last Documented On 2 4:56PM By Quirino Tripp ; [facility] HYDROcodone-Acetaminophen 5- 325 MG Oral Tablet 04/28/2022 - 05/05/2022 Provider: Quirino Tripp MD Diagnosis: one tablet by mouth three times a day Last Documented On 2 8:20AM By Quirino Tripp ; [facility] HYDROcodone-Acetaminophen 5- 325 MG Oral Tablet 04/20/2022 - 04/27/2022 Provider: Quirino Tripp MD Diagnosis: one tablet by mouth three times a day Last Documented On 2 1:38PM By Quirino Tripp ; [facility] HYDROcodone-Acetaminophen 5- 325 MG Oral Tablet 04/13/2022 - 04/20/2022 Provider: Quirino Tripp MD Diagnosis: one tablet by mouth three times a day Last Documented On 2 5:24PM By Quirino Tripp ; [facility] HYDROcodone-Acetaminophen 5- 325 MG [...] On 2 4:14PM By Quirino Tripp ; [facility] HYDROcodone-Acetaminophen 5- 325 MG Oral Tablet 03/24/2022 - 03/31/2022 Provider: Quirion Tripp MD Diagnosis: one tablet by mouth three times a day Last Documented On 2 10:24AM By Quirino Tripp ; [facility] HYDROcodone-Acetaminophen 5- 325 MG Oral Tablet 03/16/2022 - 03/23/2022 Provider: Quirino Tripp MD Diagnosis: one tablet by mouth three times a day Last Documented On 2 4:39PM By Quirino Cabrales [facility] HYDROcodone-Acetaminophen 5- 325 MG Oral Tablet 03/09/2022 - 03/16/2022 Provider: Quirino Tripp MD Diagnosis: one tablet by mouth three times a day Last Documented On 2 11:11AM By Quirino Cabrales [facility] HYDROcodone-Acetaminophen 5- 325 MG Oral Tablet 03/01/2022 - 03/08/2022 Provider: Quirino Tripp MD Diagnosis: one tablet by mouth three times a day Last Documented On 2 10:02AM By Quirino Cabrales [facility] HYDROcodone-Acetaminophen 5- 325 MG Oral Tablet 02/23/2022 - 03/02/2022 Provider: Quirino Tripp MD Diagnosis: one tablet by mouth three times a day Last Documented On 2 11:25AM By Quirino Cabrales [facility] HYDROcodone-Acetaminophen 5- 325 MG Oral Tablet 02/17/2022 - 02/24/2022 Provider: Quirino Tripp MD Diagnosis: one tablet by mouth three times a day Last Documented On 2 8:12AM By Quirino Cabrales [facility] HYDROcodone-Acetaminophen 5- 325 MG Oral Tablet 02/10/2022 - 02/17/2022 Provider: Quirino Tripp MD Diagnosis: one tablet by mouth three times a day Last Documented On 2 1:41PM By Quirino Cabrales [facility] HYDROcodone-Acetaminophen 5- 325 MG Oral Tablet 01/27/2022 - 02/03/2022 Provider: Quirino Tripp MD Diagnosis: one tablet by mouth three times a day Last Documented On 2 8:16AM By Quirino Cabrales [facility] HYDROcodone-Acetaminophen 5- 325 MG Oral Tablet 01/20/2022 - 01/27/2022 Provider: Quirino Tripp MD Diagnosis: one tablet by mouth three times a day Last Documented On 2 9:45AM By Quirino Cabrales [facility] HYDROcodone-Acetaminophen 5- 325 MG Oral Tablet 01/13/2022 - 01/20/2022 Provider: Quirino Tripp MD Diagnosis: three times a day Last Documented On 2 4:20PM By Quirino Cabrales [facility] oxyCODONE HCl 5 MG Oral Tablet 01/05/2022 - 01/10/2022 Provider: Quirino hsieh MD Diagnosis: 1-2 po q 4-6h prn post op pa inNOT TO EXCEED MORE THAN 6 TABLETS IN 24 HOURS Last Documented On 2 4:44PM By Quirino Cabrales [facility] oxyCODONE HCl 5 MG Oral Tablet 12/30/2021 - 01/04/2022 Provider: Quirino hsieh MD Diagnosis: 1-2 po q 4-6h prn post op pa inNOT TO EXCEED MORE THAN 6 TABLETS IN 24 HOURS Last Documented On 2 1:51PM By Quirino Cabrales [facility] Amoxicillin 500 MG Oral Capsule 12/30/2021 - 01/09/2022 Provider: Quirino hsieh MD Diagnosis: one tablet by mouth three times a day Last Documented On 2 1:51PM By Montse Cabrales [facility] Benzoyl Peroxide Wash 5% External Liquid 12/15/2021 - 12/16/2021 Provider: Quirino hsieh MD Diagnosis: use as directed by Dr. Tripp Last Documented On 2 9:11AM By Yi Collins ; [facility] Ondansetron HCl 4 MG Oral Tablet 12/15/2021 - 12/25/2021 Provider: Quirino hsieh MD Diagnosis: 1 q 8 hours prn nausea 1 q 8 hours prn post op nausea Last Documented On 2 9:11AM By Yi Colilns ; [facility] HYDROcodone-Acetaminophen 5- 325 MG Oral Tablet 12/02/2021 - 12/12/2021 Provider: Quirino Tripp MD Diagnosis: three times a day Last Documented On 2 3:29PM By Quirino Tripp ; [facility] HYDROcodone-Acetaminophen 5- 325 MG Oral Tablet 11/18/2021 - 11/28/2021 Provider: Quirino Tripp MD Diagnosis: three times a day Last Documented On 2 2:55PM By Quirino Tripp ; [facility] HYDROcodone-Acetaminophen 5- 325 MG Oral Tablet 11/05/2021 - 11/15/2021 Provider: Quirino Tripp MD Diagnosis: three times a day Last Documented On 2 12:56PM By Quirino Tripp ; [facility] Furosemide 40 MG Oral Tablet 10/18/2021 - 01/16/2022 P josevisole: MARIS CORLEY MD Diagnosis: Last Documented On 2 3:57PM By Rosario Pierce ; [facility] HYDROcodone-Acetaminophen 5- 325 MG Oral Tablet 10/18/2021 - 10/28/2021 Provider: Quirino Tripp MD Diagnosis: three times a day Last Documented On 2 2:50PM By Quirino Tripp ; [facility] Ibuprofen 600 MG Oral Tablet 10/18/2021 - 10/23/2021 P rovider: Diagnosis: Last Documented On 2 3:55PM By Rosario Pierce ; [facility] ARIPiprazole 2 MG Oral Tablet 10/18/2021 - 01/16/2022 Provider: MARIS CORLEY MD Diagnosis: Last Documented On 2 3:55PM By Rosario Pierce ; [facility], [facility] Potassium Chloride ER 20 MEQ Oral Tablet Extended Release 10/18/2021 - 01/16/2022 Provider: MARIS CORLEY MD Diagnosis: Last Documented On 2 3:55PM By Rosario Pierce ; [facility], [facility] Diphenoxylate-Atropine 2.5-0 .025 MG Oral Tablet 10/18/2021 - 01/16/2022 Provider: MARIS CORLEY MD Diagnosis: Last Documented On 2 3:56PM By Rosario Pierce ; [facility], [facility] Levothyroxine Sodium 25 MCG Oral Tablet 10/18/2021 - 01/16/2022 Provider: MARIS Longoria MD Diagnosis: Last Documented On 2 3:56PM By Rosario Pierce ; [facility], [facility] Carvedilol 25 MG Oral Tablet 10/18/2021 - 01/16/2022 P rovider: MARIS CORLEY MD Diagnosis: Last Documented On 2 3:56PM By Rosario Pierce ; [facility], [facility] Ypsilanti 10-325MG Oral Tablet 05/17/2019 - 06/16/2019 Pro vider: Bailey Stanley MD Diagnosis: 1 every 4 - 6 hours as needed Last Documented On 9 11:12AM By Carolina Morocho ; [facility], [facility] Medications Administered Includes: Administered Medications from this encounter No Administered Medications Recorded Vital Signs Includes: Vital Signs from this encounter Vital Name 01/16/2023 09:46A Height (in) 63 Weight (lb) 170 Body Mass Index 30.1 Body Surface Area (m2) 1.8 Note: sjs / verbal weight Last Documented: On 01/16/2023 9:55AM ; [facility], [facility] Results Includes: Results discussed during this encounter No Results Recorded For Specified Dates History of Present Illness Includes: History of Present Illness from this encounter CARI Dennison is a 62 year old female. - Symptoms Giving way, grinding. Worse when standing. - Allergy list reviewed - Problem list reviewed - Medication list reviewed - Previous history of new onset pain 01/06/2023 Injury is not work related or an automotive accident. Fall - Sharp pain Symptoms - Stabbing - Pain is constant (100% of the time) - Pain is dull, aching - Patient pain level from 1-10: 8 - Yes, previous treatment. This is a 62-year-old female who is here for evaluation of the foot ankle and lower leg on the left side. She has a Chiari malformation and is minimally ambulatory. She is in a powered wheelchair in the office today. She tells me the biggest challenge in her daily life is getting her pants on and on that particular day about 2 weeks ago, the exact date of injury is unknown, she had a fall with her foot being trapped behind her on that left side. She has had multiple falls over the past several months according to her. She has had a previous left tibial plateau fracture repair by somebody at the [facility] and has foot lymphedema that is worse on that left leg with a draining bulla on the thigh area according to her on that left side currently. She has made her way to me for evaluation of this reported bimalleolar ankle fracture based on x-rays from 01/10/2023. Social History Description Last Updated Tobacco non-user 01/16/2023 Last Documented On 3 10:19AM ; [facility], [facility] Exercising regularly 01/16/2023 Last Documented On 3 10:19AM ; [facility], [facility] Not a smoker 03/30/2022 Last Documented On 3 9:28AM ; [facility], [facility] Caffeine use 12/30/2021 Last Documented On 3 9:28AM ; [facility], [facility] No recent change in diet 12/30/2021 Last Documented On 3 9:28AM ; [facility], [facility] Not a current smoker. 12/30/2021 Last Documented On 3 9:28AM ; [facility], [facility] Not a current smoker. 10/07/2020 Last Documented On 3 9:28AM ; [facility] Non-smoker 08/03/2020 Last Documented On 3 9:28AM ; [facility], [facility] No tobacco use 04/24/2019 Last Documented On 3 9:28AM ; [facility], [facility] Smoking status : Never smoker 04/24/2019 Last Documented On 3 9:28AM ; [facility], [facility] No recent change in diet 04/24/2019 Last Documented On 3 9:28AM ; [facility] Not a current smoker 04/24/2019 Last Documented On 3 9:28AM ; [facility], [facility] Not using alcohol 04/24/2019 Last Documented On 3 9:28AM ; [facility], [facility] Not using drugs 04/24/2019 Last Documented On 3 9:28AM ; [facility], [facility] Procedures and Surgical History Includes: Procedures from this encounter Procedures Code Diagnosis Performing Provider Service L ocation Service Date use of tobacco assessment performed 1000F Last Documented On 3 9:54AM ; [facility], [facility] an X-ray was performed 01/10/2023 [facility] [id number] Last Documented On 3 9:51AM ; [facility], [facility] Surgical History Last Updated Past Surgical History: Knee surgery ~Decompression Laminectomy (2002) ~Shoulder surgery 01/16/2023 Last Documented On 3 10:19AM ; [facility], [facility] History of Previous Fractures 12/30/2021 Last Documented On 3 9:28AM ; [facility], [facility] Medical History Includes: Medical History addressed during this encounter Description Last Updated 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 01/16/2023 Last Documented On 3 10:19AM ; [facility] History of Anemia 01/16/2023 Last Documented On 3 10:19AM ; [facility] History of arthritis 12/30/2021 Last Documented On 3 9:28AM ; [facility] History of Fractures 12/30/2021 Last Documented On 3 9:28AM ; [facility], [facility] History of Hypertension 12/30/2021 Last Documented On 3 9:28AM ; [facility], [facility] History of Thyroid Disease 12/30/2021 Last Documented On 3 9:28AM ; [facility], [facility] Recent immunization for pneumococcal pne umonia 12/30/2021 Last Documented On 3 9:28AM ; [facility], [facility] A recent immunization for flu 06/11/2020 10/07/2020 Last Documented On 3 9:28AM ; [facility], [facility] History of Fractures 10/07/2020 Last Documented On 3 9:28AM ; [facility], [facility] Sleep Apnea 10/07/2020 Last Documented On 3 9:28AM ; [facility], [facility] A previous fracture 04/24/2019 Last Documented On 3 9:28AM ; [facility], [facility] Arthritic joint problems 04/24/2019 Last Documented On 3 9:28AM ; [facility], [facility] History of depression 04/24/2019 Last Documented On 3 9:28AM ; [facility] History of osteoporosis 04/24/2019 Last Documented On 3 9:28AM ; [facility], [facility] Intermittent hypertension 04/24/2019 Last Documented On 3 9:28AM ; [facility] Thyroid disease 04/24/2019 Last Documented On 3 9:28AM ; [facility], [facility] Family History Includes: Family History addressed during this encounter Description Last Updated Family history of systemic hypertension father 12/30/2021 Last Documented On 3 9:28AM ; [facility], [facility] Review of Systems Includes: Review of Systems from this encounter Systemic: Not feeling tired, no recent weight loss, and no recent weight gain. Head: No headache and no sinus pain. Eyes: No vision problems, no Cataracts, no Glasses/Contacts, and no Glaucoma. Otolaryngeal: No hearing loss and no tinnitus. Cardiovascular: No chest pain or discomfort and no palpitations. Hypertension. No High Cholesterol. Pulmonary: No daytime asthma symptoms and no chronic cough. No wheezing. Gastrointestinal: No heartburn and no abdominal pain. No Indigestion, no Acid Reflux, no Peptic Ulcer, no GI Stomach Bleed, and no Ulcers. Endocrine: No hot flashes, no muscle weakness, and no Diabetes. Hypothyroid. No Hyperthyroid. Hematologic: No easy bleeding. A tendency for easy bruising and Anemia. Musculoskeletal: Arthritis. No lower back pain. Soft tissue swelling. No localized joint pain. Neurological: Dizziness. No convulsions. Numbness. Psychological: No anxiety and no emotional lability. Depression. No insomnia. Not crying for no reason. Skin: No dry skin. No Ulcers, no Scars, and no rash. Allergic and Immunologic: No complaint of seasonal allergic reaction. Mental Status Includes: Mental Status from this encounter Description No anxiety Functional Status Includes: Functional Status from this encounter No Functional Status Recorded Physical Exam Includes: Physical Exam from this encounter Allergies Includes: Active Allergies Substance Type Reaction Onset Date Resolved Date Statu s tiZANidine HCl Allergy 01/16/2023 Acti ve Last Documented On 3 9:50AM ; [facility], [facility] Encounters Encounter Provider Location Date Check-In Time Check-Out Time Diagnosis Physician Specified Modesto Zhang DPM [facility] 01/17/20 23 9:21AM 10:14AM Insurance Includes: Active Insurance Policies Plan Name Member ID Group # Subscriber Relationship Effect henri Dates 1 - [facility] /MEDICARE [id number] Tiffanie Dennison Self 09/11/2018 - Unknown 2 - [employer] [id number] Tirso Dennison Clinical Notes Includes: Clinical Notes from this encounter * Progress note Date Encounter Last Documented by 01/16/2023 Physician Specified Last documen lotus on 01/16/2023; 10:19 AM, Modesto Zhang DPM; [facility] Active Problems & Conditions - Left Ankle Joint Pain Chief Complaint The Chief Complaint is: Left ankle pain. Referred Here Referred by. History of Present Illness Tiffanie Dennison is a 62 year old female. - Symptoms Giving way, grinding. Worse when standing. - Allergy list reviewed - Problem list reviewed - Medication list reviewed - Previous history of new onset pain 01/06/2023 Injury is not work related or an automotive accident. Fall - Sharp pain Symptoms - Stabbing - Pain is constant (100% of the time) - Pain is dull, aching - Patient pain level from 1-10: 8 - Yes, previous treatment. This is a 62-year-old female who is here for evaluation of the foot ankle and lower leg on the left side. She has a Chiari malformation and is minimally ambulatory. She is in a powered wheelchair in the office today. She tells me the biggest challenge in her daily life is getting her pants on and on that particular day about 2 weeks ago, the exact date of injury is unknown, she had a fall with her foot being trapped behind her on that left side. She has had multiple falls over the past several months according to her. She has had a previous left tibial plateau fracture repair by somebody at the [facility] and has foot lymphedema that is worse on that left leg with a draining bulla on the thigh area according to her on that left side currently. She has made her way to me for evaluation of this reported bimalleolar ankle fracture based on x-rays from 01/10/2023. Current Medication - ARIPiprazole 2 MG Oral Tablet 90 days, 0 refills - Ascorbic Acid 1000 MG Oral Tablet take as directed 0 days, 0 refills - Calcium 600+D 600-10 MG-MCG Oral Tablet take as directed 0 days, 0 refills - Calmoseptine 0.44-20.6% External Ointment take as directed 0 days, 0 refills - Chlorhexidine Gluconate 0.12% Mouth/Throat Solution take as directed 0 days, 0 refills - Diphenoxylate-Atropine 2.5-0.025 MG Oral Tablet take as directed 0 days, 0 refills - Erythromycin 5 MG/GM Ophthalmic Ointment take as directed 0 days, 0 refills - Eye Itch Relief 0.025% Ophthalmic Solution 25 days, 0 refills - FeroSul 325 (65 Fe) MG Oral Tablet take as directed 0 days, 0 refills - Fluorometholone 0.1% Ophthalmic Suspension take as directed 0 days, 0 refills - Furosemide 20 MG Oral Tablet 90 days, 0 refills - Gabapentin 100 MG Oral Capsule take as directed 0 days, 0 refills - HYDROcodone-Acetaminophen 7.5-325 MG Oral Tablet 10 days, 0 refills - Ibuprofen 800 MG Oral Tablet take as directed 0 days, 0 refills - Levothyroxine Sodium 150 MCG Oral Tablet 90 days, 0 refills - Lidocaine Viscous HCl 2% Mouth/Throat Solution take as directed 0 days, 0 refills - Nystatin 262007 UNIT/GM External Cream 30 days, 0 refills - Olopatadine HCl 0.1% Ophthalmic Solution take as directed 0 days, 0 refills - prednisoLONE Acetate 1% Ophthalmic Suspension 14 days, 0 refills - Promethazine HCl 25 MG Oral Tablet take as directed 0 days, 0 refills - rOPINIRole HCl 0.5 MG Oral Tablet take as directed 0 days, 0 refills - Spironolactone 25 MG Oral Tablet 90 days, 0 refills - Synthroid 175 MCG Oral Tablet 90 days, 0 refills - Venlafaxine HCl ER 150 MG Oral Capsule Extended Release 24 Hour 90 days, 0 refills Past Medical/Surgical History Reported: History of Fractures. History of Fractures. Medical: Thyroid disease, joint problems arthritic, and a fracture. Intermittent hypertension. Immunization History: Recent immunization for flu 06/11/2020 and for pneumococcal pneumonia. Diagnoses: Anemia. Sleep Apnea. Thyroid Disease Hypertension. Osteoporosis. Arthritis. Depression Arnold Chiari Malformation of Brain and Spine Lymphedema. Procedural: - Previous Fractures Surgical: - Past Surgical History: Knee surgery Decompression Laminectomy (2002) Shoulder surgery Social History Not a current smoker. Not a current smoker. Current diet: No recent change in diet. No recent change in diet. Caffeine use: Caffeine use. Tobacco use: No tobacco use and not a current smoker. Tobacco non-user. Not a smoker. Non-smoker. Smoking status: Never smoker. Alcohol: Not using alcohol. Drug Use: Not using drugs. Habits: Exercising regularly. Allergies - tiZANidine HCl Family History Systemic hypertension father Review Of Systems Systemic: Not feeling tired, no recent weight loss, and no recent weight gain. Head: No headache and no sinus pain. Eyes: No vision problems, no Cataracts, no Glasses/Contacts, and no Glaucoma. Otolaryngeal: No hearing loss and no tinnitus. Cardiovascular: No chest pain or discomfort and no palpitations. Hypertension. No High Cholesterol. Pulmonary: No daytime asthma symptoms and no chronic cough. No wheezing. Gastrointestinal: No heartburn and no abdominal pain. No Indigestion, no Acid Reflux, no Peptic Ulcer, no GI Stomach Bleed, and no Ulcers. Endocrine: No hot flashes, no muscle weakness, and no Diabetes. Hypothyroid. No Hyperthyroid. Hematologic: No easy bleeding. A tendency for easy bruising and Anemia. Musculoskeletal: Arthritis. No lower back pain. Soft tissue swelling. No localized joint pain. Neurological: Dizziness. No convulsions. Numbness. Psychological: No anxiety and no emotional lability. Depression. No insomnia. Not crying for no reason. Skin: No dry skin. No Ulcers, no Scars, and no rash. Allergic and Immunologic: No complaint of seasonal allergic reaction. Physical Findings - Vitals taken 01/16/2023 09:46 am sjs / verbal weight Height 63 in 59 - 78 Weight 170 lbs 96 - 178 Body Mass Index 30.1 kg/m2 Standard Measurements: - Patient was overweight. This is a 62-year-old female who is here for evaluation of the foot ankle and lower leg on the left side. she is alert and oriented x3. She is in no acute distress. She is resting comfortably in a powered wheelchair. She has minimal mobility of the upper and lower extremities due to her Chiari malformation. She has profound lymphedema in both lower extremities left a little more involved than the right. There is no palpable cord in either calf to indicate immediate evidence of DVT. She has significant thickening of the soft tissues around that left ankle with tenderness to the medial and lateral malleolar regions. She has no open skin lesion or abrasion in the ankle or foot region. She has good capillary refill to the toes. She can flex and extend the toes. Strength is not otherwise tested Tests Three-view x-rays of the left foot and three-view x-rays of the left ankle from an outside source dated 01/10/2023 along with the radiology report indicates a bimalleolar ankle fracture. Profound osteopenia is noted throughout the visualized field. Significant soft tissue thickening around the leg and foot is noted Assessment Debilitated state with chronic effects of Chiari malformation upper and lower extremities. Bimalleolar ankle fracture left. Lymphedema bilateral lower extremities left greater than right. Osteopenia Previous Tests Imaging: X-Ray: An X-ray was performed 01/10/2023 [facility]. Counseling/Education Modesto Zhang DPM performed the following counseling: - Lose weight Plan I had a lengthy discussion with this patient regarding the findings. She has a multitude of significant underlying medical problems. She does live by herself. SheIs going to need a higher level of care than what we can provide at a community based facility. She may need hospitalization she may need extended care at a correction facility. She tells me she is not in favor of going to a correction facility due to previous experience from some of her previous surgeries. Nonetheless, this subacute presentation of a bimalleolar ankle fracture may actually involve a little more. In my opinion a CT scan would be required. The alignment is okay although not perfect. She is not significantly ambulatory. The debate is whether or not to proceed surgically which would have significant risk factors with her peripheral edema etc. She does not wish to pursue anything surgically unless absolutely necessary. I think the best option for this patient with her multiple comorbid medical conditions is to be managed at the [facility] where multiple subspecialist are available more readily. This is in fact her wish. We will facilitate that. The best option for her in my opinion is for her to go to the emergency department to be properly evaluated and the proper subspecialty services consulted. She is understanding of this. At this time I am not going to apply any type of immobilizing boot or cast as it would immediately be removed upon arrival by the treating physicians at the [facility]. She is understanding of this. She has transportation which will take her to the [facility]. she is understanding and agreeable with this plan of care Practice Management Use of tobacco assessment performed. Care Team - MARIS CORLEY MD Notes This dictation was done with voice recognition software and may contain errors and omissions.
--- OUTSIDE RECORDS SUMMARY | 2025-06-23 12:49 | XMS_ITS | Encounter Summary ---
Author Organization [employer] ([place], [place], [place], [place]) Address [address] [place] [address] Care Team Providers Care Barrel Painter Name Role Phone Unavailable Primary Care Provider Unavailabl e Encounter Details Date Type Department Care Team (Late st Contact Info) Description 04/07/2019 Transcribed Document [facility] [place] [address] ProviderLeah [place] [address] Social History Tobacco Use Types [...] On: 04/07/2019 16:47 EDT by WENDY CARABALLO RN-Bioinformatics AssociateMerchandise Supervisor Progress Note Discharge Arrangements : Patient Post-Acute Information Patient Name: CAMACHO DENNISON Gender: Female : 58 Age: 58 Years No Post-Acute Placement(s) Listed No Post-Acute Service(s) Listed No [place] Referral(s) Listed Discharge Options Discussed with Patient : long-term rehabilitation, Short term rehabilitation WENDY CARABALLO RN-Bioinformatics Associate - 04/07/2019 16:47 EDT Narrative Progress Note Narrative Progress Note : REFERRAL TO [facility] ..[facility]IA [facility]..WENDY WAGGONER, RN-Bioinformatics Associate - 04/07/2019 16:47 EDT documented in this encounter Plan of Treatment Not on file documented as of this encounter Visit Diagnoses Not on filedocumented in this encounter
--- OUTSIDE RECORDS SUMMARY | 2025-06-23 12:49 | XMS_ITS | Encounter Summary ---
Author Organization [employer] ([place], [place], [place], [place]) Address [address] [place] [address] Care Team Providers Care Webbing Supervisor Name Role Phone Unavailable Primary Care Provider Unavailabl e Encounter Details Date Type Department Care Team (Late st Contact Info) Description 04/06/2019 Transcribed Document [facility] [place] [facility] [place] [address] ProviderLeah MD [address] [place] [address] Social History Tobacco Use Types Packs/Day [...] Leah ProviderMD - 04/06/2019 8:44 AM CDT [facility] PACU Summary Primary Physician: DALE MALDONADO MD-ORT Finalized Date/Time: 04/16/19 13:10:03 Pt. Name: CAMACHO STANLEY/Sex: 1960 Female Med Rec #: [id number] Physician: EMILY STEWART MD-INT Financial #: [id number] Pt. Type: I Room/Bed: 52/1 Admit/Disch: 04/05/19 16:34:00 - 04/10/19 15:18:00 Institution: [facility] [place] PACU Case Times Entry 1 In PACU I 04/06/19 09:04:00 Ready for PACU 04/06/19 09:33:00 Discharge Discharge from PACU 04/06/19 09:33:00 I Last Modified By: Lourdes Ramries, RN 04/06/19 09:40:56 [facility] PACU Case Times Audit 04/06/19 09:40:56 Chief Underwriter: [email or web address] Modifier: [email or web address] <+> 1 Ready for PACU Discharge <+> 1 Discharge from PACU I Finalized By: Alice Flowers RN Document Signatures Signed By: Lourdes Ramires RN 04/06/19 09:41 Alice Flowers RN 04/16/19 13:10 Unfinalized History Date/Time Username Reason for Unfinalizing Freetext Reason for Unfinalizing 04/16/19 13:09 LISET Chart Audit Electronically signed by Zulma [facility] Conversion Printed Circuit Boards Plasma Etcher Cerner at 12/26/2022 12:54 PM CDT documented in this encounter Plan of Treatment Not on file documented as of this encounter Visit Diagnoses Not on filedocumented in this encounter
--- OUTSIDE RECORDS SUMMARY | 2025-06-23 12:49 | XMS_ITS | Encounter Summary ---
Author Organization [employer] ([place], [place], [place], [place]) Address [address] [place] [address] Care Team Providers Care Water And Gas Helper Name Role Phone Unavailable Primary Care Provider Unavailabl e Encounter Details Date Type Department Care Team (Late st Contact Info) Description 04/05/2019 Transcribed Document [facility] [place] [address] ProviderLeah MD [facility] [address] Social History Tobacco Use Types [...] form. Electronically signed by Umm Maya Conversion Public Health Sanitarian Technician Cerner at 12/26/2022 12:56 PM CDT documented in this encounter Plan of Treatment Not on file documented as of this encounter Visit Diagnoses Not on filedocumented in this encounter
--- OUTSIDE RECORDS SUMMARY | 2025-06-23 12:49 | XMS_ITS | Encounter Summary ---
Author Organization [employer] ([place], [place], [place], [place]) Address [address] [place] [address] Care Team Providers Care Tankman Name Role Phone Unavailable Primary Care Provider Unavailabl e Encounter Details Date Type Department Care Team (Late st Contact Info) Description 04/07/2019 Transcribed Document [facility] [place] [address] [place] [address] ProviderLeah MD [address] [place], [place] [id number] Social History Tobacco Use Types Packs/Day Years Used Date Smoking Tobacco: Never Assessed Comments Unknown Sex and Gender Information Value Date Recorded Sex Assigned at Not on file Legal Sex Female 6:39 PM CDT Gender Identity Not on file Sexual Orientation Not on file documented as of this encounter Miscellaneous Notes * Cerner Conversion Note - Historical ProviderMD - 04/07/2019 2:00 AM CDT Corrections Specialist Details Entered On: 04/07/2019 3:53 EDT Performed On: 04/07/2019 2:00 EDT by Asiya Kelly Rn Order Details Transport Mode Order Detail : Wheelchair Isolation Precautions Order Detail : Standard Precautions Order Detail : 0 IV Order Detail : 1 Oxygen Order Detail : 0 Nurse Collect Order Detail : 0 Lift/Transfer : Moderate assist Central Line Order Detail : No Room Service : Not Appropriate Arterial Line : No Asiya Kelly, Rn - 04/07/2019 3:52 EDT documented in this encounter Plan of Treatment Not on file documented as of this encounter Visit Diagnoses Not on filedocumented in this encounter
--- OUTSIDE RECORDS SUMMARY | 2025-06-23 12:49 | XMS_ITS | Encounter Summary ---
Author Organization [employer] ([place], [place], [place], [place]) Address [address] [place] [address] Care Team Providers Care Sales Assistant Name Role Phone Unavailable Primary Care Provider Unavailabl e Encounter Details Date Type Department Care Team (Late st Contact Info) Description 04/09/2019 Transcribed Document [facility] [place] [address] [place] [address] ProviderLeah MD [facility] [place] [address] Social History Tobacco Use Types [...]
--- OUTSIDE RECORDS SUMMARY | 2025-06-23 12:49 | XMS_ITS | Encounter Summary ---
Author Organization [employer] ([place], [place], [place]) Address [address] [place] [address] Care Team Providers Care Orchid Transplanter Name Role Phone Unavailable Primary Care Provider Unavailabl e Encounter Details Date Type Department Care Team (Late st Contact Info) Description 04/05/2019 Transcribed Document [facility] [place] [facility] [place] [address] ProviderLeah MD [address] [place] [id number] Social History Tobacco Use Types Packs/Day Years [...] 04/05/2019 19:51 EDT Electronically signed by Zulma [facility] Conversion Furniture Painter Cerner at 12/26/2022 12:45 PM CDT documented in this encounter Plan of Treatment Not on file documented as of this encounter Visit Diagnoses Not on filedocumented in this encounter
--- OUTSIDE RECORDS SUMMARY | 2025-06-23 12:49 | XMS_ITS | Encounter Summary ---
Author Organization [employer] ([place], [place], [place], [place]) Address [address] [place] [address] Care Team Providers Care Major League Baseball Player Name Role Phone Unavailable Primary Care Provider Unavailabl e Encounter Details Date Type Department Care Team (Late st Contact Info) Description 04/06/2019 Transcribed Document [facility] [place] [address] [place] [address] ProviderLeah MD [facility] [place] [address] Social History Tobacco Use Types [...]
--- OUTSIDE RECORDS SUMMARY | 2025-06-23 12:50 | XMS_ITS | Encounter Summary ---
Author Organization [employer] ([place], [place], [place], [place]) Address [address] [place] [address] Care Team Providers Care Health Consultant Name Role Phone Unavailable Primary Care Provider Unavailabl e Encounter Details Date Type Department Care Team (Late st Contact Info) Description 04/09/2019 Transcribed Document [facility] [place] [facility] [place] [address] ProviderLeah MD [address] [place] [address] Social History Tobacco Use Types Packs/Day Years Used Date Smoking Tobacco: Never Assessed Comments Unknown Sex and Gender Information Value Date Recorded Sex Assigned at Not on file Legal Sex Female 6:39 PM CDT Gender Identity Not on file Sexual Orientation Not on file documented as of this encounter Miscellaneous Notes * Cerner Conversion Note - Leah Dickerson MD - 04/09/2019 8:30 AM CDT PLEASE MODIFY [...] air or < 95% on oxygen). Cyanosis/Hypoxia 04/0516-Xisfjd-26% O2 sat on RA 04/0593-Wvgtvq-52% O2 sat on 2L [ x] Bilateral [...] ___Chung Shirley RN, MSN, CDS Phone #: __[phone]____ Date: _04/09/2019____ Acute Respiratory Failure: ABG pH < 7.35 or > 7.45; Decreased oxygen saturation (<90% room air or < 95% on oxygen); PCO2 > 50 mm Hg; PO2 < 60 mm Hg; Labored or rapid respirations ARDS: Dx Criteria [Saxon ARDS]: Respiratory symptoms within one week of [...]
--- OUTSIDE RECORDS SUMMARY | 2025-06-23 12:50 | XMS_ITS | Encounter Summary ---
Author Organization [employer] ([place], [place], [place], [place]) Address [address] [place] [address] Care Team Providers Care Teasel Gig Operator Name Role Phone Unavailable Primary Care Provider Unavailabl e Encounter Details Date Type Department Care Team (Late st Contact Info) Description 04/08/2019 Transcribed Document [facility] [place] [facility] [place] [address] ProviderLeah MD [address] [place] [address] Social History Tobacco Use Types Packs/Day Years Used Date Smoking Tobacco: Never Assessed Comments Unknown Sex and Gender Information Value Date Recorded Sex Assigned at Not on file Legal Sex Female 6:39 PM CDT Gender Identity Not on file Sexual Orientation Not on file documented as of this encounter Miscellaneous Notes * Cerner Conversion Note - Leah Dickerson MD - 04/08/2019 10:41 PM CDT Patient: CAMACHO [...]
--- OUTSIDE RECORDS SUMMARY | 2025-06-23 12:50 | XMS_ITS | Encounter Summary ---
Author Organization [employer] ([place], [place], [place], [place]) Address [address] [place] [address] Care Team Providers Care Internet Designer Name Role Phone Unavailable Primary Care Provider Unavailabl e Encounter Details Date Type Department Care Team (Late st Contact Info) Description 04/10/2019 Transcribed Document [facility] [place] [address] [place] [address] ProviderLeah MD [address] [place] [address] Social History Tobacco Use Types [...]
--- OUTSIDE RECORDS SUMMARY | 2025-06-23 12:50 | XMS_ITS | Continuity of Care Document ---
Author Organization [facility] Address [address] [facility], [address] [place] [address] Care Team Providers Care Canary Breeder Name Role Phone [facility] Referring Provider DANNI LANGLEY Referring Provider DALE MALDONADO Referring Provider Assessment Encounter Date Assessment Date Assessment LastModified by Organization Details LastModified Time 06/16/2025 06/16/2025 Mrs. Dennison presents for a wellness check. She recently suffered a significant vulvar infection that fortunately cleared with oral antibiotics as the abscess drained on its own. We had referred her to a social services specialist in [place]. She now has evidence for thrush from taking antibiotics so we will need to treat with nystatin. This past year she had the large non-reducible ventral/umbilical hernia repaired at [facility] successfully under Dr. Satish Lindo. She has had [...] find that the therapy for that in [place] has been helpful and she has been to the lymphedema therapy intermittently. She did go to pain management briefly in [place] with Dr. Smith but no longer is [...] and she spent time in rehabilitation at [facility] as well. She had been residing in [facility] for rehabilitation following a fall in March [...] and anxiety disorder. 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 She is a . [...] Appointments None recorded. Lab None recorded. Referral physical therapist referral - to continue gait training and strengtheni ng 2024 [facility], [address], [place], [address], 04:07:00 Procedures None recorded. Surgeries None recorded. Imaging None recorded. Medication Orders nystatin 100,000 unit/mL oral suspension 2024 025 [facility] [address], [address] [place] [address], [address], 11:24:56 bumetanide 0.5 mg tablet 2024 025 [facility] [address], [address] [place] [address], [address], 11:24:54 levothyroxi ne 150 mcg tablet 2024 025 [facility] [address], [address] [place] [address], [address], 11:24:54 Patient TargetsNo targets recorded. Patient InstructionsNo instructions recorded. Reason for Referral Physical Therapist Referral for Walking disability to continue gait training and strengthening Referring Physician: Meagan Hagan, Family Medicine, Encounter Date: 06/16/2025 Results Created Date Observation Date Name Description Value Unit Range Abnormal Flag Note LastModifiedBy Organization Detail LastModifiedTime 05/23/2005/24/2025 LIPID PANEL , STAND JANET cholesterol, total 106 mg/dL <200 normal Not Available [facility] [place] [facility] [address] [facility], [place], [address], 05/24/2025 09:19:54 05/23/2005/24/2025 LIPID PANEL , STAND JANET HDL cholesterol 37 mg/dL > or = 50 low Not Available [facility] [address] [place], [address], 05/24/2025 09:19:54 05/23/2005/24/2025 LIPID PANEL , STAND JANET triglyceride s 45 mg/dL <150 normal Not Available [facility] [place] [facility] [address] [facility] [place], [address], 05/24/2025 09:19:54 05/23/2005/24/2025 LIPID PANEL , STAND JANET LDL-choleste rol 56 mg/dL _(gagandeep c) normal Refer ence range : <100 Mattie able range <100 mg/dL for prima ry preve ntion ; <70 mg/dL for patie nts with CHD or diabe tic patie nts with > or = 2 CHD risk facto rs. LDL-C is now calcu lated using the Roxy n-Hop kins marinu harinder n, which is a valid ated novel bernabe weir r accur acy than the Fried rupali equat ion in the estim ation of LDL-C . Roxy blanco SS et al. XANDER. 2013; 310(1 9): 2061- 2068 (http ://ed ucati on.Qu estGloria cano tics. com/f aq/FA Q164) Not Available [facility] [place] [facility] [address] [facility] [place], [address], 05/24/2025 09:19:54 05/23/2005/24/2025 LIPID PANEL , STAND JANET chol/HDLC ratio 2.9 (calc ) <5.0 normal Not Available [facility] [place] [facility] [address] [facility] [place], [address], 05/24/2025 09:19:54 05/23/2005/24/2025 LIPID PANEL , STAND JANET non HDL cholesterol 69 mg/dL _(gagandeep c) <130 normal For patie nts with diabe mylene plus 1 major ASCVD risk facto r, treat ing to a non-H DL-C goal of <100 mg/dL (LDL- C of <70 mg/dL ) is consi dered a thera peuti c optio n. Not Available [facility] [place] [facility] [address] [facility] [place], [address], 05/24/2025 09:19:54 05/23/2005/24/2025 COMPR EHENS JEF METAB OLIC PANEL glucose 129 mg/dL 65-99 high Fasti ng refer ence inter annita For someo ne witho ut known diabe mylene, a gluco se value >125 mg/dL indic ates that they may have diabe mylene and this shoul d be confi rmed with a follo w-up test. Not Available [facility] [place] [facility] [address] [facility] [place], [address], 05/24/2025 09:19:55 05/23/2005/24/2025 COMPR EHENS JEF METAB OLIC PANEL urea nitrogen (BUN) 12 mg/dL 7-25 normal Not Available [facility] [place] [facility] [address] [facility] [place], [address], 05/24/2025 09:19:55 05/23/2005/24/2025 COMPR EHENS JEF METAB OLIC PANEL creatinine 0.43 mg/dL 0.50-1 [address] [facility] [address] [place], [address], 05/24/2025 09:19:55 05/23/20 25 05/24/2025 COMPR EHENS JEF METAB OLIC PANEL eGFR 108 mL/mi n/1.7 3m2 > or = [address] [facility] [address] [place], [address], 05/24/2025 09:19:55 05/23/2005/24/2025 COMPR EHENS JEF METAB OLIC PANEL BUN/creatini ne ratio 28 (calc ) 6-[address] [facility] [address] [place], [address], 05/24/2025 09:19:55 05/23/2005/24/2025 COMPR EHENS JEF METAB OLIC PANEL sodium 133 mmol/ L 135-14 [address] [facility] [address] [place], [address], 05/24/2025 09:19:55 05/23/2005/24/2025 COMPR EHENS JEF METAB OLIC PANEL potassium 4.0 mmol/ L 3.5-5. [address] [facility] [address] [place], [address], 05/24/2025 09:19:55 05/23/2005/24/2025 COMPR EHENS JEF METAB OLIC PANEL chloride 96 mmol/ L 98-110 low Not Available [facility] [address] [place], [address], 05/24/2025 09:19:55 05/23/2005/24/2025 COMPR EHENS JEF METAB OLIC PANEL carbon dioxide 30 mmol/ L 20-[address] [facility] [place], [address], 05/24/2025 09:19:55 05/23/2005/24/2025 COMPR EHENS JEF METAB OLIC PANEL calcium 8.7 mg/dL 8.6-10 .[address] [facility] [place], [address], 05/24/2025 09:19:55 05/23/2005/24/2025 COMPR EHENS JEF METAB OLIC PANEL protein, total 6.6 g/dL 6.1-8. [address] [facility] [address] [facility] [place], [address], 05/24/2025 09:19:55 05/23/2005/24/2025 COMPR EHENS JEF METAB OLIC PANEL albumin 3.6 g/dL 3.6-5. 1 normal Not Available [facility] [address] [place], [place] [address], [place], [address], 05/24/2025 09:19:55 05/23/2005/24/2025 COMPR EHENS JEF METAB OLIC PANEL globulin 3.0 g/dL_ (calc ) 1.9-3. [address] [facility] [place], [address], 05/24/2025 09:19:55 05/23/2005/24/2025 COMPR EHENS JEF METAB OLIC PANEL albumin/glob ulin ratio 1.2 (calc ) 1.0-2. 5 normal Not Available [facility] [place], [address], 05/24/2025 09:19:55 05/23/2005/24/2025 COMPR EHENS JEF METAB OLIC PANEL bilirubin, total 1.2 mg/dL 0.2-1. 2 normal Not Available [facility] [place] [facility] [address] [facility] [place], [address], 05/24/2025 09:19:55 05/23/2005/24/2025 COMPR EHENS JEF METAB OLIC PANEL alkaline phosphatase 333 U/L 37-153 high Not Available [facility] [address] [place], [address], 05/24/2025 09:19:55 05/23/2005/24/2025 COMPR EHENS JEF METAB OLIC PANEL AST 57 U/L 10-35 high Not Available [facility] [address] [facility] [place], [address], 05/24/2025 09:19:55 05/23/2005/24/2025 COMPR EHENS JEF METAB OLIC PANEL ALT 59 U/L 6-29 high Not Available [facility] [address] [facility] [place], [address], 05/24/2025 09:19:55 05/23/2005/24/2025 TSH TSH 28.20 mIU/L 0.40-4 .50 high Not Available [facility] [place] [address] [place], [address], 05/24/2025 09:19:55 05/23/2005/24/2025 CBC (INCL UDES DIFF/ PLT) white blood cell count 5.0 thous and/u L 3.8-10 .8 normal Not Available [facility] [address] [facility] [place], [address], 05/24/2025 09:19:56 05/23/2005/24/2025 CBC (INCL UDES DIFF/ PLT) red blood cell count 3.73 axel on/uL 3.80-5 .10 low Not Available [facility] [address] [place], [address], 05/24/2025 09:19:56 05/23/2005/24/2025 CBC (INCL UDES DIFF/ PLT) hemoglobin 11.4 g/dL 11.7-1 5.5 low Not Available [facility] [place] [facility] [address] [place], [address], 05/24/2025 09:19:56 05/23/2005/24/2025 CBC (INCL UDES DIFF/ PLT) hematocrit 34.6 % 35.0-4 5.0 low Not Available [facility] [place] [facility] [address] [place], [address], 05/24/2025 09:19:56 05/23/2005/24/2025 CBC (INCL UDES DIFF/ PLT) MCV 92.8 fL 80.0-1 00.0 normal Not Available [facility] [place] [facility] [address] [place], [address], 05/24/2025 09:19:56 05/23/2005/24/2025 CBC (INCL UDES DIFF/ PLT) MCH 30.6 pg 27.0-3 3.0 normal Not Available [facility] [address] [place], [address], 05/24/2025 09:19:56 05/23/2005/24/2025 CBC (INCL UDES DIFF/ PLT) MCHC 32.9 g/dL 32.0-3 6.0 normal For adult s, a sligh t decre ase in the calcu lated MCHC value (in the range of 30 to 32 g/dL) is most likel y not clini vance signi aisha t; huyen er, it shoul d be inter prete d with cauti on in corre latio n with other red cell devorah eters and the patie nt's clini gagandeep condi tion. Not Available [facility] [place] [facility] [address], [place], [address], 05/24/2025 09:19:56 05/23/2005/24/2025 CBC (INCL UDES DIFF/ PLT) RDW 16.5 % 11.0-1 5.0 high Not Available [facility] [place] [facility] [address], [place], [address], 05/24/2025 09:19:56 05/23/2005/24/2025 CBC (INCL UDES DIFF/ PLT) platelet count 107 thous and/u L 140-40 0 low Not Available [facility] [place] [facility] [address], [place], [address], 05/24/2025 09:19:56 05/23/2005/24/2025 CBC (INCL UDES DIFF/ PLT) MPV 9.6 fL 7.5-12 .5 normal Not Available [facility] [place] [facility] [address], [place], [address], 05/24/2025 09:19:56 05/23/2005/24/2025 CBC (INCL UDES DIFF/ PLT) absolute neutrophils 3150 cells /uL 1500-7 800 normal Not Available [facility] [place] [facility], [place], [address], 05/24/2025 09:19:56 05/23/2005/24/2025 CBC (INCL UDES DIFF/ PLT) absolute lymphocytes 1220 cells /uL 850-39 00 normal Not Available [facility] [place] [facility] [address], [place], [address], 05/24/2025 09:19:56 05/23/2005/24/2025 CBC (INCL UDES DIFF/ PLT) absolute monocytes 500 cells /uL 200-95 0 normal Not Available [facility] [place] [facility] [address], [place], [address], 05/24/2025 09:19:56 05/23/20 25 05/24/2025 CBC (INCL UDES DIFF/ PLT) absolute eosinophils 90 cells /uL 15-500 normal Not Available [facility] [place] [facility] [address], [place], [address], 05/24/2025 09:19:56 05/23/2005/24/2025 CBC (INCL UDES DIFF/ PLT) absolute basophils 40 cells /uL 0-200 normal Not Available [facility] [place] [facility] [address], [place], [address], 05/24/2025 09:19:56 05/23/2005/24/2025 CBC (INCL UDES DIFF/ PLT) neutrophils 63 % normal Not Available [facility] [place] [facility] [place], [address], 05/24/2025 09:19:56 05/23/2005/24/2025 CBC (INCL UDES DIFF/ PLT) lymphocytes 24.4 % normal Not Available [facility] [place] [facility] [address], [place], [address], 05/24/2025 09:19:56 05/23/2005/24/2025 CBC (INCL UDES DIFF/ PLT) monocytes 10.0 % normal Not Available [facility] [place] [facility] [address], [place], [address], 05/24/2025 09:19:56 05/23/20 25 05/24/2025 CBC (INCL UDES DIFF/ PLT) eosinophils 1.8 % normal Not Available [facility] [place] [facility] [address], [place], [address], 05/24/2025 09:19:56 05/23/20 25 05/24/2025 CBC (INCL UDES DIFF/ PLT) basophils 0.8 % normal Not Available [facility] [place] [facility] [address], [place], [address], 05/24/2025 09:19:56 Result Notes None recorded. 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 Not Available [facility] 3 04:05:44 Chiari malformati on 811418246 Active Not Available [facility] 3 04:05:44 Hypertensi ve disorder 50836565 Active Not Available [facility] 04:05:44 Hypothyroi dism 01520112 Active Not Available [facility] 3 04:05:44 Fatigue 70191825 Active Not Available [facility] 3 04:05:44 Local infection of wound 51324546 Active Not Available [facility] 3 04:05:44 Chronic diarrhea 694361343 Active Not Available [facility] 3 04:05:43 Hyperlipid emia 01734930 Active Not Available [facility] 3 04:05:44 Onychomyco sis 382062681 Active Not Available [facility] 3 04:05:44 Candidiasi s of skin 03370023 Active Not Available [facility] 3 04:05:44 Infection of skin and/or subcutaneo us tissue 27152857 Active Not Available [facility] 3 04:05:43 Body mass index 30+ - obesity 053653223 Active Not Available [facility] 3 04:05:43 Left hemiparesi s 386918274 Active Not Available [facility] 3 04:05:44 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 catherine 8495390125387 8 Active Not Available [facility] 3 04:05:43 Syringomye keegan 100472900 Active Not Available [facility] 3 04:05:43 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 Not Available [facility] 04:05:44 Intermitte nt urinary incontinen ce 478771388 Active 2016 Not Available [facility] 3 04:05:44 Adhesive capsulitis of left shoulder 6623352003475 07 Active 2016 Not Available [facility] 3 04:05:44 Sleep related hypoxemia 4713007328867 02 Active 2016 G47.36 Not Available [facility] 3 04:05:44 Fracture of femur 25507231 Active 2018 Not Available [facility] 3 04:05:44 Fracture of humerus 57768625 Active 2018 Not Available [facility] 3 04:05:44 Closed fracture of left tibial plateau 6820864498314 9107 Active 2020 Not Available [facility] 3 04:05:43 Closed fracture of clavicle 05565731 Active 2020 Not Available [facility] 3 04:05:44 Compressio n fracture of lumbar spine 296213639 Active 2020 Not Available [facility] 3 04:05:44 Osteoarthr itis of wrist 138820090 Active 2023 Meagan Hagan MD [address], [address] , [facility] 4 12:32:00 Problem Notes None recorded. Procedures Surgical History Date Name Laterality Status Provider Name and Address Organization Details Recorded Time 12/18/19 22 repair of shoulder completed Meagan Hagan MD [address], [address], [facility] 05/09/2022 14:14:30 10/15/19 21 open reduction of fracture with internal fixation completed Meagan Hagan MD [address], [address], [facility] 04/11/2021 19:45:26 04/06/20 19 procedure on knee completed Meagan Hagan MD 2016 [facility], [place], [address], [facility] 12/07/2022 23:56:52 08/11/20 14 Colonoscopy completed Meagan Hagan MD 2016 [facility], [place], [address], [facility] 11/07/2014 14:40:37 09/11/19 12 Other completed [facility] 11/07/2014 13:57:35 09/11/19 03 operation on brain completed Meagan Hagan MD [address] [place] [address], [place], [place], [address] [place] [address], [facility] 05/11/2022 00:07:17 09/11/18 97 Other completed [facility] 11/07/2014 13:57:35 reverse prosthetic total arthroplasty of right shoulder completed Meagan Hagan MD [address] [address], [place], [place], [address] [place] [address], [facility] 11/06/2019 21:36:32 Imaging Results None recorded. Procedure Notes None recorded. Medical Equipment None Reported. Allergies Allergen ID Allergen Name Allergen Category Reaction Reaction Severity Criticality Documentation Date Start Date Code Code System Note Provider Name and Address Organization Details Recorded Time 25421 Zanaflex medicatio n anaphylax is severe Not available 10/19/20202020 25833 6 [facility] 1 10:44:08 92460 Product containin g 3-hydroxy -3-methyl glutaryl- coenzyme A reductase inhibitor (product) medicatio n myalgias (muscle pain) Not available Not available 06/07/2023 24292 009 SNOMED Meagan Hagan MD [address] [facility], [place], [address] , [facility] 3 19:51:38 32868 permethri n medicatio n rash Not available [facility] 08/12/2024 39086 RxNorm Meagan Hagan MD [address] [facility], [address], [place], [address] , [facility] 4 17:09:53 Medications Name [...] TAKE 2 TABLETS BY MOUTH EVERY DAY 07/07/ 2021 03/29 /2022 completed Not Available Not Available Not Available [...] % 96 % 97.3 [degF] 20.8 kg/m2 19306.7 1 g 105/72 mm[Hg] Jennifer [facility] 5 10:11:54 Social History Question Answer [...] Or The Highest Degree You Have Received? [id number] Information not available 12/07/2021 High Blood Pressure [...] Functional Status Question Answer Note LastModified by [employer] ion Details LastModified Time Do you use [...] recombinant, quadrivalent, PF 0 completed Not Available [facility] 06/12/2020 11:51:39 pneumococcal polysaccharide PPV23 2 completed Jennifer Kira [facility] 12/07/2021 15:47:58 Influenza, recombinant, quadrivalent, PF 3 completed Jennifer [place] [facility] 03/09/2023 14:45:02 Influenza, split virus, quadrivalent, PF 3 completed Meagan Hagan MD [address] [facility], [place], [address], [facility] 06/07/2023 16:46:05 COVID-19, mRNA, LNP-S, bivalent, PF, 30 mcg/0.3 mL dose 3 completed Meagan Hagan MD [address] [facility], [place], [address], [facility] 08/09/2023 16:35:41 Influenza, high-dose, trivalent, PF 5 completed Jennifer [place] [facility] 06/02/2025 16:54:20 COVID-19, mRNA, LNP-S, PF, 30 mcg/0.3 mL dose 1 completed Not Available [facility] 06/13/2023 04:05:44 COVID-19, mRNA, LNP-S, PF, 30 mcg/0.3 mL dose 1 completed Not Available [facility] 06/13/2023 04:05:44 COVID-19, mRNA, LNP-S, PF, 100 mcg/0.5mL dose or 50 mcg/0.25mL dose 2 completed Not Available [facility] 06/13/2023 04:05:44 Influenza, split virus, quadrivalent, preservative 2 completed Not Available [facility] 06/13/2023 04:05:44 Tdap 4 completed Meagan Hagan MD [address], [address], Jens Villareal 06/03/2024 12:09:58 Past Encounters Encounter ID Performer Location Encounter Start Date Encounter Closed Date Diagnosis/Indication Diagnosis SNOMED-CT Code Diagnosis ICD10 Code Diagnosis IMO Codes Diagnosis Note [id number] Meagan Hagan MD [facility] [address] [place] [address] 06/02/2025 15:17:48 06/03/2025 08:42:10 Abscess of labia 017723377 N76.4 4982593 Influenza vaccination given 8540325634 9109 Z23 15850808 Insulin tr eated type 2 diabetes mellitus 501228324 E11.9 Z79.4 790279 [id number] Meagan Hagan MD [facility] [address] [place] [phone] 06/16/2025 10:04:41 06/19/2025 09:15:11 Hypothyroidism 78197855 E03.9 Adult heal th examination 860044787 Z00.01 Pain of mu ltiple joints 85266443 M25.50 Peripheral neuropathic pain 963834172 M79.2 Essential hypertension 70671649 I10 Hyperlipidemia 98925994 E78.5 Walking disability 11082 8008 R26.2 Muscle atrophy 45367356 M62.50 Chiari malformation 2531 82853 Q07.00 Postoperat jef meningocele 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 T81.89XS Intermitte nt urinary incontinence 032409893 N39.498 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 6135295654 9108 Q07.00 Syringomyelia 163952056 G95.0 Generalize d osteoarthritis 053865436 M15.9 History of reverse prosthetic total arthroplasty of right shoulder 1455173271 5306303 Z96.611 Gastroesop hageal reflux disease 362439835 K21.9 Vitamin D deficiency 347 73687 E55.9 Chronic ac quired lymphedema 06824664 I89.0 Iron defic iency anemia 66247755 D50.9 Myalgia ca used by statin 3475513054 7430902 T46.6X5D Mammogram declined 93010 5004 Z53.20 Influenza vaccination declined 491174075 Z28.21 Thrombocyt openic disorder 690944941 D69.6 Medication review done by doctor 733779646 Z76.89 History of fracture 3910 48836 Z87.81 3064491 Type 2 nestor betes mellitus controlled by diet 7413607594 46182 E11.9 8015062 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 K74.69 9135063 taking SUZIE has stopped her severe itching Systolic a rterial pressure below reference range 85553183 I95.9 49597719 she may need to decrease the spironolac tone to just once daily and she can work on that dose Low blood pressure 19359 003 R03.1 06862420 Candidiasis of mouth 797 98791 B37.0 405621 Review of medication 182 698482 Z79.899 55330276 Recurrent depression 191 318355 F33.40 0437936014 Body mass index 20-24 - normal 329200083 Z68.20 87902064 Health Concerns Section Related Observation LastModified by Organization Detai ls LastModified Time None Recorded Concern Status LastModified by Organization Details LastModified Time None Recorded Payers Encounter Date Sequence Insurance Name Policy Number Policy Cantu Covered Member ID Cantu Member ID Guarantor Name 06/16/2025 1 [facility] - MEDICARE ADVANTAGE (MEDICARE REPLACEMENT PPO) [id number] Tiffanie Dennison [id number] Tiffanie Dennison 06/16/2025 2 [employer] ( - MEDICARE SUPPLEMENT) Tirso Dennison [id number] Tiffanie Dennison Notes Date Note Type Note Provider Name and Address Organization Details Recorded Time 06/16/2025 text/html needs referral again for PT at [facility] for lower body strengthening. She actually walked [...] bumex to 0.5 Meagan Hagan MD [address] [facility], [address], [place], [address], [facility] 06/18/2025 10:38:35 OBGyn Episode No OBEpisode recorded.
--- OUTSIDE RECORDS SUMMARY | 2025-06-23 12:50 | XMS_ITS | Encounter Summary ---
Author Organization [employer] ([place], [place], [place], [place]) Address [address] [place] [address] Care Team Providers Care Deicer Repairer Electric Name Role Phone Unavailable Primary Care Provider Unavailabl e Encounter Details Date Type Department Care Team (Late st Contact Info) Description 04/09/2019 Transcribed Document [facility] [place] Family Medicine [facility] [place] [address] ProviderLeah MD [address] [place] [address] Social History Tobacco Use Types Packs/Day Years Used Date Smoking Tobacco: Never Assessed Comments Unknown Sex and Gender Information Value Date Recorded Sex Assigned at Not on file Legal Sex Female 6:39 PM CDT Gender Identity Not on file Sexual Orientation Not on file documented as of this encounter Miscellaneous Notes * Cerner Conversion Note - Leah ProviderMD - 04/09/2019 12:12 PM CDT Treatment Intervention, PT Entered On: 04/09/2019 13:46 EDT Performed On: 04/09/2019 12:12 EDT by Laurne Mendoza, Energy Risk Management Analyst Lead General Information, PT Visit Type, PT [...] Fall prevention measures, high risk Lauren Mendoza Energy Risk Management Analyst Lead - 04/09/2019 13:33 EDT General Status [...] Treatment Time : 24 Minute(s) Lauren Mendoza Energy Risk Management Analyst Lead - 04/09/2019 13:33 EDT Edu Topics [...] Assistive Device : Verbalizes understanding Lauren Mendoza Energy Risk Management Analyst Lead - 04/09/2019 13:33 EDT Plan of Care, PT PT Tx Plan/Goals Established w Patient : Yes Lauren Mendoza Energy Risk Management Analyst Lead - 04/09/2019 13:33 EDT Fdc Goals Other PT LTG Grid Goal #1 [...] continue Progressing, continue Progressing, continue Lauren Mendoza Energy Risk Management Analyst Lead - 04/09/2019 13:33 EDT Lauren Mendoza Energy Risk Management Analyst Lead - 04/09/2019 13:33 EDT Lauren Mendoza Energy Risk Management Analyst Lead - 04/09/2019 13:33 EDT Treatment Note [...] Treatment : Continue per POC. Lauren Mendoza Energy Risk Management Analyst Lead - 04/09/2019 13:33 EDT Pain Assessment Pain Scaled Used : FACES Pain Score Pre-Intervention : 4 Pain Score During-Intervention : 4 Pain Score Post-Intervention. : 4 Lauren Mendoza Energy Risk Management Analyst Lead - 04/09/2019 13:33 EDT Image 1 - Images currently included in the form version of this document have not been included in the text rendition version of the form. [place] PT Charges PT Ther Activities Ea 15 Min : 2 Lauren Mendoza Energy Risk Management Analyst Lead - 04/09/2019 13:33 EDT documented in this encounter Plan of Treatment Not on file documented as of this encounter Visit Diagnoses Not on filedocumented in this encounter
--- OUTSIDE RECORDS SUMMARY | 2025-06-23 12:50 | XMS_ITS | Encounter Summary ---
Author Organization [employer] ([place], [place], [place], [place]) Address [address] [place] [address] Care Team Providers Care Woolen Mill Utility Worker Name Role Phone Unavailable Primary Care Provider Unavailabl e Encounter Details Date Type Department Care Team (Late st Contact Info) Description 04/10/2019 Transcribed Document [facility] [place] [facility] [place] [address] ProviderLeah MD [address] [place] [address] Social History Tobacco Use Types Packs/Day Years Used Date Smoking Tobacco: Never Assessed Comments Unknown Sex and Gender Information Value Date Recorded Sex Assigned at Not on file Legal Sex Female 6:39 PM CDT Gender Identity Not on file Sexual Orientation Not on file documented as of this encounter Miscellaneous Notes * Cerner Conversion Note - Leah Dickerson MD - 04/10/2019 2:52 PM CDT Patient: CAMACHO [...] stay and she will be discharged to snf facility to continue her care and rehabilitation. [...] CLINICALLY STABLE AFEBRILE OK TO D/C TO DETENTION FACILITY. Orders Order Profile (Selected) Documented Medications Documented Abilify: 2 mg, Oral, At Bedtime, 0 Refill(s) Lomotil 2.5 mg-0.025 mg oral tablet: 1 Tab, Oral, BID, May take additional doses if needed, 0 Refill(s) Dingle 7.5 mg-325 mg oral tablet: 1 Tab, [...]
--- OUTSIDE RECORDS SUMMARY | 2025-06-23 12:50 | XMS_ITS | Encounter Summary ---
Author Organization [employer] ([place], [place], [place], [place]) Address [address] [place] [address] Care Team Providers Care Work Environment Safety Inspector Name Role Phone Unavailable Primary Care Provider Unavailabl e Encounter Details Date Type Department Care Team (Late st Contact Info) Description 04/10/2019 Transcribed Document [facility] [place] Family Medicine [facility] [place] [address] ProviderLeah MD [facility] [place] [address] Social History Tobacco Use Types Packs/Day Years Used Date Smoking Tobacco: Never Assessed Comments Unknown Sex and Gender Information Value Date Recorded Sex Assigned at Not on file Legal Sex Female 6:39 PM CDT Gender Identity Not on file Sexual Orientation Not on file documented as of this encounter Miscellaneous Notes * Cerner Conversion Note - Leah ProviderMD - 04/10/2019 4:00 PM CDT Discharge Summary, PT Entered On: 04/11/2019 12:06 EDT Performed On: 04/10/2019 16:00 EDT by JORGE HUNT, PT Discharge Summary Reason for Discharge : Discharged from hospital Discharged to, Therapy : Unit, alf Discharge Summary Comment, PT : Patient met 1/3 acute PT goals. Max A x 2 supine to sit EOB x 10 min NWB R UE + NWB R LE Sit to stand with Mod A x 2 AROM x 20-25 reps D/C to [facility] for continued care and rehab on 04/10/19. JORGE HUNT, PT - 04/11/2019 12:04 EDT Break And Load Operator Goals Other PT LTG Grid Goal #1 [...] 04/11/2019 12:04 EDT Electronically signed by Zulma [facility] [place] Conversion Senior Contracts Manager Cerner at 12/26/2022 12:47 PM CDT documented in this encounter Plan of Treatment Not on file documented as of this encounter Visit Diagnoses Not on filedocumented in this encounter
--- OUTSIDE RECORDS SUMMARY | 2025-06-23 12:50 | XMS_ITS | Encounter Summary ---
Author Organization [employer] ([place], [place], [place], [place]) Address [address] [place] [address] Care Team Providers Care Splitting Machine Operator Name Role Phone Unavailable Primary Care Provider Unavailabl e Encounter Details Date Type Department Care Team (Late st Contact Info) Description 04/09/2019 Transcribed Document [facility] [place] Family Medicine [address] [place] [address] ProviderLeah MD [facility] [place] [address] Social History Tobacco Use Types Packs/Day Years Used Date Smoking Tobacco: Never Assessed Comments Unknown Sex and Gender Information Value Date Recorded Sex Assigned at Not on file Legal Sex Female 6:39 PM CDT Gender Identity Not on file Sexual Orientation Not on file documented as of this encounter Miscellaneous Notes * Cerner Conversion Note - Leah ProviderMD - 04/09/2019 5:00 PM CDT Chart Check - Review Order Profile Entered On: 04/09/2019 18:30 EDT Performed On: 04/09/2019 17:00 EDT by Selene Medina, Registered Nurse Chart Check Powerplans Initiated/Discontinued as Appropriate : Yes All Active Orders Reviewed : Yes Selene Medina, Registered Nurse - 04/09/2019 18:30 EDT documented in this encounter Plan of Treatment Not on file documented as of this encounter Visit Diagnoses Not on filedocumented in this encounter
--- OUTSIDE RECORDS SUMMARY | 2025-06-23 12:50 | XMS_ITS | Clinical Summary ---
Author Organization [facility] Address [address] [facility] [place] [address] Phone Care Team Providers Care Glass Block Bender Name Role Phone BARNEY HIGH, MARIS Ruano Unavailable [phone] Guy Alcaraz MD Unavailable [phone] Reason for Visit and Chief Complaint [Patient Encounter] Problems Includes: Problems addressed during this encounter and other active Problems All Visits Onset Date Resolved Date Provider Condition S tatus Left Ankle Joint Pain 01/16/2023 Modesto Zhang DPM Active Last Documented On 3 9:24AM ; [facility] Plan of Treatment Pending Tests Order Diagnosis Results Due Ordering Julio fritz Radiology - CT Scan Shoulder 11/01/21 Quirino Tripp MD Last Documented On 2 9:05AM ; [facility] Assessments Includes: Assessments from this encounter No Assessments Recorded Medical Equipment - Implanted Devices Includes: Current Devices No Medical Equipment Recorded Medications Includes: Medications discussed during this encounter and other current Medications New / Renewed during this visit Quirino Tripp MD on 02/23/2022 HYDROcodone-Acetaminophen 5- 325 MG Oral Tablet Provider: Quirino Tripp MD 7 day supply: 21 tablet, 0 refills Diagnosis: one tablet by mouth three times a day Pharmacy: [facility] [phone] [facility], [id number] - Last Documented On 2 11:25AM By Quirino Tripp ; [facility] Current Medications (continue as prescribed) Calcium 600+D 600-10 MG-MCG Oral Tablet 01/16/2023 P rovider: Diagnosis: Last Documented On 3 10:07AM By Luz Ruff ; [facility] Ascorbic Acid 1000 MG Oral Tablet 01/16/2023 Provide r: Diagnosis: Last Documented On 3 10:07AM By Luz Ruff ; [facility] Lidocaine Viscous HCl 2% Mouth/Throat Solution 023 Provider: Diagnosis: Last Documented On 3 10:11AM By Luz Ruff ; [facility] Ibuprofen 800 MG Oral Tablet 01/16/2023 Provider: Diagnosis: Last Documented On 3 10:11AM By Luz Ruff ; [facility] Fluorometholone 0.1% Ophthalmic Suspension 01/16/2023 Provider: Diagnosis: Last Documented On 3 10:10AM By Luz Ruff ; [facility] Gabapentin 100 MG Oral Capsule 01/16/2023 Provider: Diagnosis: Last Documented On 3 10:10AM By Luz Ruff ; [facility] FeroSul 325 (65 Fe) MG Oral Tablet 01/16/2023 Provid er: Diagnosis: Last Documented On 3 10:10AM By Luz Ruff ; [facility] Erythromycin 5 MG/GM Ophthalmic Ointment 01/16/2023 Provider: Diagnosis: Last Documented On 3 10:09AM By Luz Ruff ; [facility] Diphenoxylate-Atropine 2.5-0.025 MG Oral Tablet 2022 Provider: Diagnosis: Last Documented On 3 10:09AM By Luz Ruff ; [facility] Chlorhexidine Gluconate 0.12% Mouth/Throat Solution Provider: Diagnosis: Last Documented On 3 10:09AM By Luz Ruff ; [facility] Calmoseptine 0.44-20.6% External Ointment 01/16/2023 Provider: Diagnosis: Last Documented On 3 10:09AM By Luz Ruff ; [facility] Olopatadine HCl 0.1% Ophthalmic Solution 01/16/2023 Provider: Diagnosis: Last Documented On 3 10:09AM By Luz Ruff ; [facility] Promethazine HCl 25 MG Oral Tablet 01/16/2023 Provid er: Diagnosis: Last Documented On 3 10:08AM By Luz Ruff ; [facility] rOPINIRole HCl 0.5 MG Oral Tablet 01/16/2023 Provide r: Diagnosis: Last Documented On 3 10:08AM By Luz Ruff ; [facility] HYDROcodone-Acetaminophen 7. 5-325 MG Oral Tablet 01/09/2023 Provider: MARIS CORLEY MD Diagnosis: Last Documented On 3 9:27AM By Luz Ruff ; [facility] Eye Itch Relief 0.025% Ophthalmic Solution 01/08/2023 Provider: Diagnosis: Last Documented On 3 10:06AM By Luz Ruff ; [facility] Levothyroxine Sodium 150 MCG Oral Tablet 01/01/2023 Provider: MARIS CORLEY MD Diagnosis: Last Documented On 3 9:27AM By Luz Ruff ; [facility] Furosemide 20 MG Oral Tablet 12/29/2022 Provider: MARIS CORLEY MD Diagnosis: Last Documented On 3 9:27AM By Luz Ruff ; [facility] Synthroid 175 MCG Oral Tablet 12/09/2022 Provider: MARIS CORLEY MD Diagnosis: Last Documented On 3 10:06AM By Luz Ruff ; [facility] prednisoLONE Acetate 1% Ophthalmic Suspension 12/10/19 Provider: Diagnosis: Last Documented On 3 10:06AM By Luz Ruff ; [facility] Venlafaxine HCl ER 150 MG Or al Capsule Extended Release 24 Hour 12/06/2022 Provider: MARIS DIAS MD Diagnosis: Last Documented On 3 9:27AM By Luz Ruff ; [facility] ARIPiprazole 2 MG Oral Tablet 11/22/2022 Provider: MARIS CORLEY MD Diagnosis: Last Documented On 3 9:27AM By Luz Ruff ; [facility] Spironolactone 25 MG Oral Tablet 09/12/2022 Provider : MARIS CORLEY MD Diagnosis: Last Documented On 3 10:08AM By Luz Ruff ; [facility] Nystatin 808052 UNIT/GM External Cream 08/09/2022 Pr ovider: MARIS CORLEY MD Diagnosis: Last Documented On 3 10:11AM By Luz Ruff ; [facility] Medications Administered Includes: Administered Medications from this encounter No Administered Medications Recorded Results Includes: Results discussed during this encounter No Results Recorded For Specified Dates History of Present Illness Includes: History of Present Illness from this encounter No History of Present Illness Recorded Social History No Social History Recorded - Smoking Status Unknown Medical History Includes: Medical History addressed during this encounter No Medical History Recorded Family History Includes: Family History addressed during this encounter No Family History Recorded Review of Systems Includes: Review of Systems from this encounter No Review of Systems Recorded Mental Status Includes: Mental Status from this encounter No Mental Status Recorded Functional Status Includes: Functional Status from this encounter No Functional Status Recorded Physical Exam Includes: Physical Exam from this encounter No Physical Exam Recorded Allergies Includes: Active Allergies Substance Type Reaction Onset Date Resolved Date Statu s tiZANidine HCl Allergy 01/16/2023 Acti ve Last Documented On 3 9:50AM ; [facility] Encounters Encounter Provider Location Date Check-In Time Check-Out Time Diagnosis [Patient Encounter] Quirino Tripp MD 02/23/2022 11:13AM 11:59PM Insurance Includes: Active Insurance Policies Plan Name Member ID Group # Subscriber Relationship Effect henri Dates 1 - [facility] [id number] Tiffanie Sandoval Juma Self 09/11/2018 - Unknown 2 - [employer] [id number] Tirso Dennison Clinical Notes Includes: Clinical Notes from this encounter No Clinical Notes Recorded
--- OUTSIDE RECORDS SUMMARY | 2025-06-23 12:50 | XMS_ITS | Encounter Summary ---
Author Organization [employer] ([place], [place], [place], [place]) Address [address] [place] [address] Care Team Providers Care Car Repairman Name Role Phone Unavailable Primary Care Provider Unavailabl e Encounter Details Date Type Department Care Team (Late st Contact Info) Description 04/10/2019 Transcribed Document [facility] [place] Family Medicine [facility] [place] [address] ProviderLeah MD [address] [place] [address] Social History Tobacco Use Types Packs/Day Years Used Date Smoking Tobacco: Never Assessed Comments Unknown Sex and Gender Information Value Date Recorded Sex Assigned at Not on file Legal Sex Female 6:39 PM CDT Gender Identity Not on file Sexual Orientation Not on file documented as of this encounter Miscellaneous Notes * Cerner Conversion Note - Leah Dickerson MD - 04/10/2019 2:03 PM CDT Patient Education [...] 12/28/2011 Document Revised: 08/18/2017 Document Reviewed: 08/18/2017 [employer] Interactive Patient Education ? 2019 [employer] documented in this encounter Plan of Treatment Not on file documented as of this encounter Visit Diagnoses Not on filedocumented in this encounter
--- OUTSIDE RECORDS SUMMARY | 2025-06-23 12:50 | XMS_ITS | Encounter Summary ---
Author Organization [employer] ([place], [place], [place], [place]) Address [address] [place] [address] Care Team Providers Care Crusher Foreman Name Role Phone Unavailable Primary Care Provider Unavailabl e Encounter Details Date Type Department Care Team (Late st Contact Info) Description 04/08/2019 Transcribed Document [facility] [place] [address] [place] [address] ProviderLeah MD [address] [place] [address] Social History Tobacco Use Types Packs/Day Years Used Date Smoking Tobacco: Never Assessed Comments Unknown Sex and Gender Information Value Date Recorded Sex Assigned at Not on file Legal Sex Female 6:39 PM CDT Gender Identity Not on file Sexual Orientation Not on file documented as of this encounter Miscellaneous Notes * Cerner Conversion Note - Leah ProviderMD - 04/08/2019 10:24 AM CDT Treatment Intervention, PT Entered On: 04/08/2019 13:51 EDT Performed On: 04/08/2019 10:24 EDT by MONIQUE JONES PTA General Information, PT Visit Type, PT [...] MONIQUE JONES PTA - 04/08/2019 13:37 EDT Nursing Home Goals Other PT LTG Grid Goal #1 [...] MONIQUE JONES, CARRI - 04/08/2019 13:37 EDT MONIQUE JONES, CARRI - 04/08/2019 13:37 EDT Treatment Note [...] the text rendition version of the form. [place] PT Charges PT Therap. Exercise 15 min : 2 PT Ther Activities Ea 15 Min : 1 MONIQUE JONES PTA - 04/08/2019 13:37 EDT documented in this encounter Plan of Treatment Not on file documented as of this encounter Visit Diagnoses Not on filedocumented in this encounter
--- OUTSIDE RECORDS SUMMARY | 2025-06-23 12:50 | XMS_ITS | Encounter Summary ---
Author Organization [employer] ([place], [place], [place], [place]) Address [address] [place] [address] Care Team Providers Care Motorcycle Repairer Name Role Phone Unavailable Primary Care Provider Unavailabl e Encounter Details Date Type Department Care Team (Late st Contact Info) Description 04/09/2019 Transcribed Document [facility] [place] [facility] [place] [address] ProviderLeah MD [address] [place] [address] Social History Tobacco Use Types Packs/Day [...] On: 04/09/2019 14:05 EDT by KOLBY ORNELAS RN-Flavor Tank TenderInsecticide Expert Progress Note Discharge Arrangements : Patient Post-Acute Information Patient Name: CAMACHO DENNISON Gender: Female : 58 Age: 58 Years No Post-Acute Placement(s) Listed No Post-Acute Service(s) Listed No [place] Referral(s) Listed Discharge Options Discussed with Patient : terminal carman rehabilitation, Short term rehabilitation Barriers to Discharge Identified : Clinical Condition of Patient, No rehabilitation hospital bed available Barriers to Discharge Unresolved : No rehabilitation hospital bed available Patient Offered Choice/Affiliations Explained : Yes KOLBY ORNELAS, RN-Flavor Tank Tender - 04/09/2019 14:05 EDT Narrative Progress Note Narrative Progress Note : 04/09 CM received call from [facility] in admissions at [facility] and Auth obtained for d.//c on 02/08 to there .....joan infromed patient.......KOLBY Murry, RN-Flavor Tank Tender - 04/09/2019 14:05 EDT Electronically signed by Zulma [facility] Conversion Blood Bank Technologist Cerner at 12/26/2022 12:40 PM CDT documented in this encounter Plan of Treatment Not on file documented as of this encounter Visit Diagnoses Not on filedocumented in this encounter
--- OUTSIDE RECORDS SUMMARY | 2025-06-23 12:50 | XMS_ITS | Encounter Summary ---
Author Organization [employer] ([place], [place], [place], [place]) Address [address] [place] [address] Care Team Providers Care Continuous Improvement Intern Name Role Phone Unavailable Primary Care Provider Unavailabl e Encounter Details Date Type Department Care Team (Late st Contact Info) Description 04/08/2019 Transcribed Document [facility] [place] Family Medicine [facility] [place] [address] ProviderLeah MD [facility] [place] [address] Social History Tobacco Use Types Packs/Day Years Used Date Smoking Tobacco: Never Assessed Comments Unknown Sex and Gender Information Value Date Recorded Sex Assigned at Not on file Legal Sex Female 6:39 PM CDT Gender Identity Not on file Sexual Orientation Not on file documented as of this encounter Miscellaneous Notes * Cerner Conversion Note - Leah Dickerson MD - 04/08/2019 4:02 PM CDT On Going Discharge Planning Entered On: 04/08/2019 16:03 EDT Performed On: 04/08/2019 16:02 EDT by JENNIFER SOLOMON Rn-Zmt OperatorGymnastics Instructor Progress Note Is the Patient Meeting Medical Necessity : No Did you Document Avoidable Days? : Yes Did you Attend Multidisciplinary Rounds? : No JENNIFER SOLOMON Rn-Zmt Operator - 04/08/2019 16:09 EDT Discharge Arrangements : Patient Post-Acute Information Patient Name: CAMACHO STANLEY Gender: Female : 58 Age: 58 Years No Post-Acute Placement(s) Listed No Post-Acute Service(s) Listed No [place] Referral(s) Listed Discharge Options Discussed with Patient : terminal block assembler rehabilitation, Short term rehabilitation Barriers to Discharge Identified : Clinical Condition of Patient, No rehabilitation hospital bed available Barriers to Discharge Unresolved : No rehabilitation hospital bed available Patient Offered Choice/Affiliations Explained : Yes JENNIFER SOLOMON Rn-Zmt Operator - 04/08/2019 16:02 EDT Narrative Progress Note Narrative Progress Note : [facility] is sending out a nurse to do an on site assessment tomorrow. [facility] is assessing today JENNIFER SOLOMON Rn-Zmt Operator - 04/08/2019 16:02 EDT documented in this encounter Plan of Treatment Not on file documented as of this encounter Visit Diagnoses Not on filedocumented in this encounter
--- OUTSIDE RECORDS SUMMARY | 2025-06-23 12:50 | XMS_ITS | Encounter Summary ---
Author Organization [employer] ([place], [place], [place], [place]) Address [address] [place] [address] Care Team Providers Care Bench Patternmaker Metal Name Role Phone Unavailable Primary Care Provider Unavailabl e Encounter Details Date Type Department Care Team (Late st Contact Info) Description 04/09/2019 Transcribed Document [facility] [place] [facility] [place] [address] ProviderLeah MD [address] [place] [address] Social History Tobacco Use Types Packs/Day Years Used Date Smoking Tobacco: Never Assessed Comments Unknown Sex and Gender Information Value Date Recorded Sex Assigned at Not on file Legal Sex Female 6:39 PM CDT Gender Identity Not on file Sexual Orientation Not on file documented as of this encounter Miscellaneous Notes * Cerner Conversion Note - Leah Dickerson MD - 04/09/2019 2:10 PM CDT On Going Discharge Planning Entered On: 04/09/2019 14:11 EDT Performed On: 04/09/2019 14:10 EDT by JENNIFER SOLOMON, Rn-Plastic Surgery CoordinatorBridge Club Manager Progress Note Discharge Arrangements : Patient Post-Acute Information Patient Name: CAMACHO DENNISON Gender: Female : 58 Age: 58 Years No Post-Acute Placement(s) Listed No Post-Acute Service(s) Listed No [place] Referral(s) Listed Discharge Options Discussed with Patient : prison rehabilitation, Short term rehabilitation Barriers to Discharge [...] Attend Multidisciplinary Rounds? : No JENNIFER SOLOMON Rn-Plastic Surgery Coordinator - 04/09/2019 14:10 EDT Narrative Progress Note Narrative Progress Note : Precert approved for [facility], patient has a bed for tomorrow. JENNIFER SOLOMON Rn-Plastic Surgery Coordinator - 04/09/2019 14:10 EDT Electronically signed by Zulma [facility] Conversion Saddle Stitching Machine Operator Cerner at 12/26/2022 12:55 PM CDT documented in this encounter Plan of Treatment Not on file documented as of this encounter Visit Diagnoses Not on filedocumented in this encounter
--- OUTSIDE RECORDS SUMMARY | 2025-06-23 12:50 | XMS_ITS | Encounter Summary ---
Author Organization [employer] ([place], [place], [place], [place]) Address [address] [place] [address] Care Team Providers Care Cap Cutter Name Role Phone Unavailable Primary Care Provider Unavailabl e Encounter Details Date Type Department Care Team (Late st Contact Info) Description 04/09/2019 Transcribed Document [facility] [place] [facility] [place] [address] ProviderLeah MD [facility] [place] [address] Social History Tobacco Use Types Packs/Day Years Used Date Smoking Tobacco: Never Assessed Comments Unknown Sex and Gender Information Value Date Recorded Sex Assigned at Not on file Legal Sex Female 6:39 PM CDT Gender Identity Not on file Sexual Orientation Not on file documented as of this encounter Miscellaneous Notes * [employer] Conversion Note - Leah Dickerson MD - 04/09/2019 5:43 PM CDT Patient: CAMACHO [...] function, blood glucose, and urine output. for [facility] facility in a.m. if stable. documented in this encounter Plan of Treatment Not on file documented as of this encounter Visit Diagnoses Not on filedocumented in this encounter
--- OUTSIDE RECORDS SUMMARY | 2025-06-23 12:50 | XMS_ITS | Encounter Summary ---
Author Organization [employer] ([place], [place], [place], [place]) Address [address] [place] [address] Care Team Providers Care Neonatal Intensive Care Unit Nurse Name Role Phone Unavailable Primary Care Provider Unavailabl e Encounter Details Date Type Department Care Team (Late st Contact Info) Description 04/09/2019 Transcribed Document [facility] [place] [facility] [place] [address] ProviderLeah [place] [facility] [address] Social History Tobacco Use Types Packs/Day Years Used Date Smoking Tobacco: Never Assessed Comments Unknown Sex and Gender Information Value Date Recorded Sex Assigned at Not on file Legal Sex Female 6:39 PM CDT Gender Identity Not on file Sexual Orientation Not on file documented as of this encounter Miscellaneous Notes * [employer] Conversion Note - Leah ProviderMD - 04/09/2019 10:47 AM CDT Patient: [...]
--- OUTSIDE RECORDS SUMMARY | 2025-06-23 12:51 | XMS_ITS | Encounter Summary ---
Author Organization [employer] ([place], [place], [place], [place]) Address [address] [place] [address] Care Team Providers Care Lpn Rn Name Role Phone Unavailable Primary Care Provider Unavailabl e Encounter Details Date Type Department Care Team (Late st Contact Info) Description 04/08/2019 Transcribed Document [facility] [place] [address] [place] [address] ProviderLeah MD [facility] [place] [address] Social History Tobacco Use Types Packs/Day Years Used Date Smoking Tobacco: Never Assessed Comments Unknown Sex and Gender Information Value Date Recorded Sex Assigned at Not on file Legal Sex Female 6:39 PM CDT Gender Identity Not on file Sexual Orientation Not on file documented as of this encounter Miscellaneous Notes * [employer] Conversion Note - Leah ProviderMD - 04/08/2019 5:00 AM CDT Chart Check - Review Order Profile Entered On: 04/08/2019 3:07 EDT Performed On: 04/08/2019 5:00 EDT by Temitope Montelongo, Rn Chart Check [employer] Initiated/Discontinued as Appropriate : Yes All Active Orders Reviewed : Yes Temitope Montelongo, Shleley - 04/08/2019 3:07 EDT documented in this encounter Plan of Treatment Not on file documented as of this encounter Visit Diagnoses Not on filedocumented in this encounter
--- OUTSIDE RECORDS SUMMARY | 2025-06-23 12:51 | XMS_ITS | Encounter Summary ---
Author Organization [employer] ([place], [place], [place], [place]) Address [address] [place] [address] Care Team Providers Care Children Librarian Name Role Phone Unavailable Primary Care Provider Unavailabl e Encounter Details Date Type Department Care Team (Late st Contact Info) Description 04/08/2019 Transcribed Document [facility] [place] [address] [place] [address] ProviderLeah MD [address] [place] [address] Social History Tobacco Use Types [...] stable continue present plan - NWB RUE/RLE Electronically signed by Umm Maya Conversion Environmental Marketing Representative [employer] at 12/26/2022 12:54 PM CDT documented in this encounter Plan of Treatment Not on file documented as of this encounter Visit Diagnoses Not on filedocumented in this encounter
[2025-06-23 12:54] VITALS: BP 120/50; PULSE 70; RESP 18; O2SAT 99
--- NOTE | 2025-06-23 12:57 | XR_ITS ---
FINAL REPORT CLINICAL HISTORY: injury COMPARISON: None FINDINGS: AP and lateral views of the right forearm are obtained. There is no prior exam for comparison. There is no acute osseous abnormality of the right forearm. Osteopenia is present. The wrist and elbow are intact, with mild degenerative changes. The soft tissues appear normal. IMPRESSION: No acute osseous abnormality of the right forearm. Reviewed, Interpreted and Dictated by Raisa Sosa MD Transcribed by Emily Guillen Authenticated and [facility]
--- NOTE | 2025-06-23 12:57 | XR_ITS ---
FINAL REPORT CLINICAL HISTORY: injury COMPARISON: None FINDINGS: AP, oblique, and lateral views of the right wrist were obtained. There is no prior exam for comparison. There is no acute fracture or dislocation. Osteopenia is present. Mild degenerative joint disease is present. The soft tissues are normal. IMPRESSION: No acute osseous abnormality of the right wrist. Reviewed, Interpreted and Dictated by Raisa Sosa MD Transcribed by Emily Guillen Authenticated and [facility]
[2025-06-23 14:15] VITALS: BP 115/50; PULSE 70; RESP 18; TEMP 37.1; O2SAT 100
== END 2025-06-23 14:19 | disposition home or self-care (01) ==
PROVIDERS: Emergency Provider Emergency Medicine; PCP Family Medicine
DX: M25.531 Pain in right wrist (principal); S64.91XA Injury of unspecified nerve at wrist and hand level of right arm, initial encounter; W19.XXXA Unspecified fall, initial encounter
CPT/HCPCS: 73090; 73110; 99283

== ENCOUNTER 2025-07-08 14:00 | Outpatient (RCR) | payer MEDICARE, SELFPAY | END 2025-07-08 23:59 | disposition home or self-care (01) | LOC: PT 14:00 | PROVIDERS: PCP Family Medicine; Visit Provider Internal Medicine | DX: R26.2 Difficulty in walking, not elsewhere classified (principal) | CPT/HCPCS: 97116; 97530 ==

== ENCOUNTER 2025-07-08 15:00 | Outpatient (RCR) | payer MEDICARE, OTHER, SELFPAY | END 2025-07-08 23:59 | disposition home or self-care (01) | LOC: OT 15:00 | PROVIDERS: PCP Family Medicine; Visit Provider Family Medicine | DX: R29.898 Other symptoms and signs involving the musculoskeletal system (principal) | CPT/HCPCS: 97110; 97140; 97166; 97530 ==

== ENCOUNTER 2025-07-31 13:00 | Outpatient (RCR) | payer MEDICARE, OTHER, SELFPAY | END 2025-07-31 23:59 | disposition home or self-care (01) | LOC: PT 13:00 | PROVIDERS: PCP Family Medicine; Visit Provider Family Medicine | DX: R26.2 Difficulty in walking, not elsewhere classified (principal) | CPT/HCPCS: 97530 ==

== ENCOUNTER 2025-07-31 14:00 | Outpatient (RCR) | payer MEDICARE, OTHER, SELFPAY | END 2025-07-31 23:59 | disposition home or self-care (01) | LOC: OT 14:00 | PROVIDERS: PCP Family Medicine; Visit Provider Family Medicine | DX: R29.898 Other symptoms and signs involving the musculoskeletal system (principal) | CPT/HCPCS: 97110; 97140; 97530 ==